=== PATIENT | female | born 1960 | race Caucasian/White ===

== ENCOUNTER 2016-11-05 13:12 | Emergency (ER) | payer OTHER ==
[~2016-11-05] VITALS: Ht 154.9 cm; Wt 94.5 kg
[~2016-11-05 13:12] MED LIST: DIPH25CA37 PO; GLC/500 PO; OXYB15TA PO; PROM25TA9 PO
[2016-11-05 13:26] VITALS: TEMP 36.6; Ht 154.9 cm; Wt 94.5 kg
[2016-11-05] MEDS ORDERED: SODIUM CHLORIDE 0.9% 500ML 500 ML IV STA (13:41)
[2016-11-05] MEDS ORDERED: MoRPHine SULFATE 10 MG/ML CARP/VIAL IM STA (13:46)
[2016-11-05] MEDS ORDERED: PROMETHAZINE HCL INJ 25 MG/ML 1 ML VIAL IM STA (13:46)
[2016-11-05 14:24] LABS: BASO % 0.2 %; BASO ABS # 0.02 K/uL (0-0.2); COMPLETE YES; EOS % 2.5 %; HEMATOCRIT 40.9 % (37-47); IG% 0.2 %; LYMPH % 34.9 %; LYMPH ABS # 3.69 K/uL (1.2-3.4); MEAN CELL VOLUME 82.6 fL (80-100); MEAN CORPUSCULAR HEMOGLOBIN 28.5 pg (25-34); MEAN CORPUSCULAR HGB CONC 34.5 g/dl (32-36); MEAN PLATELET VOLUME 8.9 fL (7.4-10.4); MONO % 8.5 %; NEUT % 53.7 %; PLATELET COUNT 383 K/uL (130-400); RED BLOOD COUNT 4.95 M/uL (4.2-5.4); WHITE BLOOD COUNT 10.57 K/uL (4.8-10.8)
[2016-11-05 14:48] LABS: ALT/SGPT 50 U/L (12-78); AST/SGOT 17 U/L (15-37); BLOOD UREA NITROGEN 9 mg/dl (7-18); BUN/CREATININE RATIO 11.3 (10-20); CALCIUM 9.6 mg/dl (8.5-10.1); CARBON DIOXIDE 26 mmol/L (21-32); CHLORIDE 104 mmol/L (98-107); CREATININE 0.76 mg/dl (0.60-1.20); GLUCOSE 102 mg/dl (70-99); POTASSIUM 4.1 mmol/L (3.5-5.1); SODIUM 139 mmol/L (136-145)
[2016-11-05 14:51] LABS: ALKALINE PHOSPHATASE 144 U/L (45-117)
--- NOTE | 2016-11-05 14:52 | DIAGNOSTIC IMAGING REPORT ---
PA CHEST WITH ABDOMINAL SERIES CLINICAL HISTORY: Nausea and vomiting. Diarrhea. FINDINGS: A PA chest radiograph is compared to study dated 10/19/2016. The cardiomediastinal silhouette is unremarkable. There is mild chronic elevation of the right hemidiaphragm with right basilar atelectasis. The lungs and pleural spaces are otherwise clear. No pneumothorax is seen. The skeletal structures are osteopenic. The bony thorax is grossly intact. Supine and erect abdominal radiographs are compared to study dated 09/14/2016. There is a nonobstructed abdominal bowel gas pattern. Moderate colonic fecal retention is observed. No intraperitoneal free air is seen. Numerous calcified phleboliths are present in the pelvis. The lumbosacral spine and bony pelvis appear intact. IMPRESSION: 1. No active disease in the chest. 2. Moderate constipation. Electronically signed by: Alfonso Reid M.D. 11/05/2016 2:50 PM Dictated Date/Time: 11/05/2016 2:48 PM
[2016-11-05 14:55] LABS: URINE APPEARANCE CLEAR (CLEAR); URINE BILIRUBIN NEG (NEG); URINE COLOR YELLOW; URINE EPITHELIAL CELL AUTO 20-30 /lpf (0-5); URINE NITRITE NEG (NEG); URINE PH 6.5 (4.5-7.5); URINE SPECIFIC GRAVITY 1.002 (1.000-1.030); UROBILINOGEN NEG (NEG); ZZUR CULT IF INDIC CLEAN CATCH NO
[2016-11-05 15:14] LABS: MANUAL MICROSCOPIC REQUIRED? NO; REVIEW REQ? NO
[2016-11-05 16:30] VITALS: BP 144/99; PULSE 99; O2SAT 97
--- NOTE | 2016-11-05 19:17 | EMERGENCY ROOM VISIT NOTE ---
History Report prepared by Tamera: Marcia Gilman Under the Supervision of: Dr. Александр Manzanares D.O. First contact with patient: 13:31 Chief Complaint: VOMITING Stated Complaint: SINUS, HEADACHE, VOMITING, DIARREAH History of Present Illness The patient is a 56 year old female who presents to the Emergency Room with complaints of a persistent illness that began three days ago. She currently rates her discomfort as a 9/10 in severity. The patient states that two and a half weeks ago she was diagnosed with a sinus infection and was started on a 10 day antibiotic course. She states that her symptoms were alleviated with the antibiotics, but states that three days ago her symptoms came back. The patient notes a slight cough that isn't new, a runny nose, and post nasal drainage. She additionally notes vomiting and abdominal irritation. The patient notes a headache today due to her sinus symptoms. She states that she chronically has had neck stiffness and pain that radiates to her neck and back. The pain is worse with twisting and turning of her neck. It's mainly worse when she turns her head to the right. The patient denies any weakness or numbness in her legs. She notes a surgical history of a hysterectomy. The patient states that she has been having diarrhea 5-6 times per day and denies any history of c-diff. She states that her significant other has a cold right now. Pt denies change in vision, fevers, chest pain, shortness of breath, nausea, pain with urination, and melena. Source of History: patient Onset: three days ago Position: other (illness) Symptom Intensity: 9/10 Timing: other (persistent) Associated Symptoms: + back pain, + cough, + diarrhea, + headache, + neck pain, + vomiting, No numbness, No weakness Review of Systems See HPI for pertinent positives & negatives. A total of 10 systems reviewed and were otherwise negative. Past Medical & Surgical Medical Problems: (1) Asthma (2) Cervicalgia (3) Diabetes mellitus type 2 (4) Diabetic gastroparesis (5) Diverticulosis Colon (W/O Ment Of Hemorrhage) (6) Diverticulosis Sml Intestine (W/O Ment Of Hemorg) (7) Essential hypertension (8) Gastroesophageal reflux disease (9) Irritable Bowel Syndrome (10) Migraine Unspecified W/O Intractable Migraine (11) Pure Hypercholesterolem (12) Tubal Ligation Status Surgical Problems: (1) H/O: hysterectomy (2) History of tonsillectomy and adenoidectomy (3) History of tubal ligation Social History Problems: (1) Herpes simplex Family History Diabetes mellitus FH: cancer FHx: heart disease Hypertension Social History Smoking Status: Former Smoker Alcohol Use: none Drug Use: none Marital Status: in relationship Housing Status: lives with significant other Occupation Status: disabled Current/Historical Medications Scheduled Amitriptyline HCl (Amitriptyline HCl), 100 MG PO HS Aspirin (Aspirin), 81 MG PO DAILY Atorvastatin (Atorvastatin Calcium), 40 MG PO HS Dicyclomine Hcl (Dicyclomine Hcl), 10 MG PO QID Duloxetine HCl (Duloxetine HCl), 60 MG PO HS Esomeprazole Magnesium (Nexium), 40 MG PO DAILY Ferrous Sulfate (Ferrous Sulfate), 325 MG PO TIDM Hydroxyzine Pamoate (Vistaril), 25 MG PO BID Insulin Glargine (Lantus Solostar), 5 UNITS SC HS Lisinopril (Lisinopril), 2.5 MG PO DAILY Melatonin (Melatonin), 10 MG PO HS Metformin Hcl (Glucophage), 500 MG PO BID Metoclopramide Hcl (Reglan), 10 MG PO ACHS Montelukast Sod (Montelukast Sodium), 10 MG PO QAM Multivitamin (Multivitamin), 1 TAB PO DAILY Oxybutynin Chloride (Oxybutynin Chloride Er), 15 MG PO HS Polyethylene (Polyethylene Glycol 3350), 17 GM PO QAM Potassium Gluconate (Potassium Gluconate), 1,190 MG PO DAILY Ranitidine HCl (Ranitidine HCl), 150 MG PO HS Senna/Docusate Sod (Senokot S), 1 TAB PO QAM Sucralfate (Sucralfate), 1 GM PO ACHS Scheduled PRN Acetaminophen (Tylenol), 1,000 MG PO UD PRN for Pain or Fever Diphenhydramine Hcl (Benadryl), 25-50 MG PO Q4-6 HRS PRN for Itching Fluticasone Prop/Salmeterol (Advair Diskus 500/50 60 Dose), 1 PUFF INH BID PRN for Shortness of Breath Fluticasone Propionate (Fluticasone Propionate), 2 SPRAYS JG DAILY PRN for Allergy Symptoms Hydrocortisone (Topical) (Hydrocortisone), 1 APPLN TOP UD PRN for Itching Ipratropium-Albuterol (Duoneb), 1 TREATMENT INH BID PRN for SOB/Wheezing Naproxen (Aleve), 440 MG PO Q12 PRN for Pain Promethazine HCl (Promethazine HCl), 25 MG PO Q6H PRN for Nausea Valacyclovir HCl (Valacyclovir HCl), 500 MG PO TID PRN for Outbreaks Allergies Coded Allergies: Hydromorphone (Verified Allergy, Severe, itching, 10/19/16) Ondansetron (Verified Allergy, Intermediate, hives; RASH, 10/19/16) Sulfa Antibiotics (Verified Allergy, Intermediate, rash, 10/19/16) Aminoglycosides (Verified Allergy, Unknown, >, 10/19/16) Bacitracin (Verified Allergy, Unknown, >, 10/19/16) Ceftriaxone (Verified Allergy, Unknown, Rash, hives and itchiness., ) Cephalexin (Unverified Allergy, Unknown, hives, 10/19/16) Latex1 -Allergic Contact Dermititis (Verified Allergy, Unknown, 10/19/16) Neomycin (Verified Allergy, Unknown, >, 10/19/16) Polymyxin B (Verified Allergy, Unknown, >, 10/19/16) Sulfamethoxazole w/Trimethoprim (Verified Allergy, Unknown, Unknown, 10/19) Physical Exam Vital Signs Date Time Temp Pulse Resp B/P Pulse Ox O2 Delivery O2 Flow Rate FiO2 11/05/16 16:30 99 18 144/99 97 11/05/16 14:47 90 18 138/85 97 Room Air 11/05/16 13:26 36.6 104 18 137/89 94 Room Air Physical Exam GENERAL: Laying on right side, disheveled, no acute distress, non-toxic EYE EXAM: normal conjunctiva, PERRL and EOM's grossly intact OROPHARYNX: no exudate, no erythema, lips, buccal mucosa, and tongue normal and mucous membranes are moist NECK: negative Brudzinski sign. supple, no nuchal rigidity, no adenopathy, slight tenderness in her musculature when turning head to the right on the left side of neck LUNGS: Clear to auscultation. Normal chest wall mechanics HEART: no murmurs, S1 normal and S2 normal ABDOMEN: abdomen soft, non-tender, normo-active bowel sounds, no masses, no rebound or guarding. BACK: Minimal pain to palpation on paraspinal muscles, mid thoracic. Back is symmetrical on inspection and there is no deformity, no midline tenderness, no CVA tenderness. SKIN: no rashes and no bruising UPPER EXTREMITIES: upper extremities are grossly normal. LOWER EXTREMITIES: Flexion and extension in Hip, knee, ankle, and EHL 5/5. gross sensations intact. Medical Decision & Procedures ER Provider Diagnostic Interpretation: Xray results per the radiologist and my interpretation. Other results have been interpreted by the radiologist and reviewed by me. PA CHEST WITH ABDOMINAL SERIES CLINICAL HISTORY: Nausea and vomiting. Diarrhea. FINDINGS: A PA chest radiograph is compared to study dated 10/19/2016. The cardiomediastinal silhouette is unremarkable. There is mild chronic elevation of the right hemidiaphragm with right basilar atelectasis. The lungs and pleural spaces are otherwise clear. No pneumothorax is seen. The skeletal structures are osteopenic. The bony thorax is grossly intact. Supine and erect abdominal radiographs are compared to study dated 09/14/2016. There is a nonobstructed abdominal bowel gas pattern. Moderate colonic fecal retention is observed. No intraperitoneal free air is seen. Numerous calcified phleboliths are present in the pelvis. The lumbosacral spine and bony pelvis appear intact. IMPRESSION: 1. No active disease in the chest. 2. Moderate constipation. Electronically signed by: Alfonso Reid M.D. 11/05/2016 2:50 PM Dictated Date/Time: 11/05/2016 2:48 PM Laboratory Results 11/05/16 14:08 Red Blood Count 4.95, Mean Corpuscular Volume 82.6, Mean Corpuscular Hemoglobin 28.5, Mean Corpuscular Hemoglobin Concent 34.5, Mean Platelet Volume 8.9, Neutrophils (%) (Auto) 53.7, Lymphocytes (%) (Auto) 34.9, Monocytes (%) (Auto) 8.5, Eosinophils (%) (Auto) 2.5, Basophils (%) (Auto) 0.2, Neutrophils # (Auto) 5.68, Lymphocytes # (Auto) 3.69, Monocytes # (Auto) 0.90, Eosinophils # (Auto) 0.26, Basophils # (Auto) 0.02 11/05/16 14:08 Test 11/05/16 14:04 11/05/16 14:08 Urine Color YELLOW Urine Appearance CLEAR (CLEAR) Urine pH 6.5 (4.5-7.5) Urine Specific [place] 1.002 (1.000-1.030) Urine Protein NEG (NEG) Urine Glucose (UA) NEG (NEG) Urine Ketones NEG (NEG) Urine Occult Blood NEG (NEG) Urine Nitrite NEG (NEG) Urine Bilirubin NEG (NEG) Urine Urobilinogen NEG (NEG) Urine Leukocyte Esterase MODERATE (NEG) Urine WBC (Auto) 1-5 /hpf (0-5) Urine RBC (Auto) 0-4 /hpf (0-4) Urine Hyaline Casts (Auto) 0 /lpf (0-5) Urine Epithelial Cells (Auto) 20-30 /lpf (0-5) Urine Bacteria (Auto) NEG (NEG) Urine Test NEG (NEG) White Blood Count 10.57 K/uL (4.8-10.8) Red Blood Count 4.95 M/uL (4.2-5.4) Hemoglobin 14.1 g/dL (12.0-16.0) Hematocrit 40.9 % (37-47) Mean Corpuscular Volume 82.6 fL (80-100) Mean Corpuscular Hemoglobin 28.5 pg (25-34) Mean Corpuscular Hemoglobin Concent 34.5 g/dl (32-36) Platelet Count 383 K/uL (130-400) Mean Platelet Volume 8.9 fL (7.4-10.4) Neutrophils (%) (Auto) 53.7 % Lymphocytes (%) (Auto) 34.9 % Monocytes (%) (Auto) 8.5 % Eosinophils (%) (Auto) 2.5 % Basophils (%) (Auto) 0.2 % Neutrophils # (Auto) 5.68 K/uL (1.4-6.5) Lymphocytes # (Auto) 3.69 K/uL (1.2-3.4) Monocytes # (Auto) 0.90 K/uL (0.11-0.59) Eosinophils # (Auto) 0.26 K/uL (0-0.5) Basophils # (Auto) 0.02 K/uL (0-0.2) RDW Standard Deviation 42.2 fL (36.4-46.3) RDW Coefficient of Variation 14.1 % (11.5-14.5) Immature Granulocyte % (Auto) 0.2 % Immature Granulocyte # (Auto) 0.02 K/uL (0.00-0.02) Anion Gap 9.0 mmol/L (3-11) Est Creatinine Clear Calc Drug Dose 84.7 ml/min Estimated GFR () 100.2 Estimated GFR (Non- 86.5 BUN/Creatinine Ratio 11.3 (10-20) Calcium Level 9.6 mg/dl (8.5-10.1) Total Bilirubin 0.3 mg/dl (0.2-1) Direct Bilirubin < 0.1 mg/dl (0-0.2) Aspartate Amino Transf (AST/SGOT) 17 U/L (15-37) Alanine Aminotransferase (ALT/SGPT) 50 U/L (12-78) Alkaline Phosphatase 144 U/L (45-117) Total Protein 7.5 gm/dl (6.4-8.2) Albumin 3.8 gm/dl (3.4-5.0) Lipase 163 U/L (73-393) Laboratory results per my review. Medications Administered Medications (Trade) Dose Ordered Sig/Antony Route Start Time Stop Time Status Last Admin Dose Admin Sodium Chloride (Nss 500ml) 500 ml @ 999 mls/hr Q31M STAT IV 11/05/16 13:41 11/05/16 14:11 DC 11/05/16 14:12 999 MLS/HR Morphine Sulfate (MoRPHine SULFATE INJ) 10 mg NOW STAT IM 11/05/16 13:46 11/05/16 13:48 DC 11/05/16 14:25 10 MG Promethazine HCl (Phenergan Inj) 25 mg NOW STAT IM 11/05/16 13:46 11/05/16 13:48 DC 11/05/16 14:24 25 MG ED Course ED COURSE: Vital signs were reviewed and showed tachycardic The patients medical record was reviewed The above diagnostic studies were performed and reviewed. ED treatments and interventions as stated above. 1339: The patient was evaluated in room B11B. A complete history and physical examination was performed. 1341: Ordered Sodium Chloride 500 ml @ 999 mls/hr IV. 1346: Ordered Phenergan Inj 25 mg IM, Morphine Sulfate 10 mg IM. 1604: Upon reevaluation, the patient is feeling better, has had no vomiting, and no diarrhea.I discussed my findings with the patient and she understands and agrees with the treatment plan. Based on the patients age, coexisting illnesses, exam and lab findings the decision to treat as an outpatient was made. The patient remained stable while under my care. The patient appeared well at the time of discharge. Medical Decision Differential Diagnosis includes but is not limited to dehydration, stroke, anemia, hypoglycemia, hyponatremia, hypernatremia, urinary tract infection, pneumonia, bronchitis, sepsis, gastroenteritis, additional abdominal pathology, metabolic abnormalities and infections. Patient is a 56-year-old female who presents the ER for nausea vomiting diarrhea. She also notes that she has mild left-sided neck pain with rotation of her neck. Patient has chronic back pain which is unremarkable. Patient has no abdominal pain. Labs including CBC, BMP, LFTs and lipase was unremarkable. UA was unremarkable. Parents was negative. Chest x-ray and obstruction series was nonfocal. Patient was updated bedside was given Phenergan and morphine as part of retrieval plan. She was given a bolus normal saline. She notes that she was feeling slightly better. She is unable to give a stool sample. She was discharged follow-up with PCP. Discussed with Pt concerning signs and symptoms to watch out for. Pt was instructed to follow up with their PCP and discussed with the patient their option to return to the ED at anytime for persistent or worsening symptoms. The appropriate anticipatory guidance and out- patient management, including indications for return to the emergency department , were explained at length to the patient and understood. Impression Primary Impression: Nausea vomiting and diarrhea Additional Impression: Neck pain on left side Scribe Attestation The scribe's documentation has been prepared under my direction and personally reviewed by me in its entirety. I confirm that the note above accurately reflects all work, treatment, procedures, and medical decision making performed by me. Departure Information Dispostion Home / Self-Care Referrals Cipriano Peña M.D. (MEDICAL) (PCP) Forms HOME CARE DOCUMENTATION FORM, IMPORTANT VISIT INFORMATION Patient Instructions A Signature Page, ED Diet Vomiting Diarrhea, ED Vomiting Diarrhea Nonspecific Ad , My [facility] Additional Instructions lease follow up with your primary care doctor with in the next 24 hours. Any worsening of your symptoms, please return to the ED immediately. This includes passing out, chest pain, shortness of breath, fevers greater than 100.4, abdominal pain, or any other concerning signs or symptoms from your standpoint. Please follow up with your primary care doctor in the next 24-48 hours to give a stool culture
[2017-01-01] MEDS ORDERED: LPT40 PO (15:56)
[2017-01-05] MEDS ORDERED: ATOR-26 PO (13:27)
[2017-02-09] MEDS ORDERED: NAPR1TAB9 PO (10:30)
[2017-02-09] MEDS ORDERED: PROM25TA16 PO (14:59)
[2017-02-09] MEDS ORDERED: POTA1TAB PO (15:03)
[2017-02-09] MEDS ORDERED: MELA1CAP9 PO (15:09)
[2017-02-09] MEDS ORDERED: ASPI1TAB83 PO (15:29)
[2017-02-09] MEDS ORDERED: MULT-506 PO (15:53)
[2017-02-09] MEDS ORDERED: SUCR1TAB PO (15:56)
[2017-02-09] MEDS ORDERED: CYM60 PO (15:56)
[2017-02-09] MEDS ORDERED: MRLP527 PO (15:56)
[2017-02-09] MEDS ORDERED: RANI150T2 PO (15:56)
[2017-02-09] MEDS ORDERED: SNG10 PO (15:59)
[2017-02-09] MEDS ORDERED: ADVIN50/60 INH (16:10)
[2017-02-09] MEDS ORDERED: GLC500 PO (16:26)
[2017-02-09] MEDS ORDERED: BUSP5TAB59 PO (16:26)
[2017-02-09] MEDS ORDERED: DIPH25TA32 PO (16:27)
[2017-02-09] MEDS ORDERED: MTR800 PO (16:31)
[2017-02-09] MEDS ORDERED: HYDR0.5C TOP (16:59)
[2017-02-09] MEDS ORDERED: TOLT2TAB9 PO (17:08)
[2017-02-09] MEDS ORDERED: VLT500 PO (19:28)
[2017-02-09] MEDS ORDERED: SENN-65 PO (20:07)
[2017-02-09] MEDS ORDERED: FLNIN/ NAE (20:57)
[2017-02-09] MEDS ORDERED: METO-157 PO (21:00)
[2017-02-09] MEDS ORDERED: ATOR-26 PO (21:11)
[2017-02-09] MEDS ORDERED: LSN25 PO (21:39)
[2017-02-09] MEDS ORDERED: DICY10CA12 PO (21:39)
[2017-02-09] MEDS ORDERED: FERR325T PO (21:44)
[2017-02-09] MEDS ORDERED: AMT100 PO (21:46)
[2017-02-09] MEDS ORDERED: INSDGIPEN SC (22:29)
[2017-02-09] MEDS ORDERED: IPRASOL4 INH (22:43)
[2017-04-04] MEDS ORDERED: ESTCR PV (18:18)
[2017-04-22] MEDS ORDERED: MIRA100T PO (21:50)
[2017-06-06] MEDS ORDERED: OXYB5TAB74 PO (14:15)
== END 2016-11-05 16:32 | disposition home or self-care (01) ==
LOC: C.EDB 13:15
DX: R11.2 Nausea with vomiting, unspecified (principal); R19.7 Diarrhea, unspecified; M54.2 Cervicalgia; R05 Cough; R51 Headache; I10 Essential (primary) hypertension; E11.9 Type 2 diabetes mellitus without complications; E78.00 Pure hypercholesterolemia, unspecified; K21.9 Gastro-esophageal reflux disease without esophagitis; Z79.4 Long term (current) use of insulin; Z79.82 Long term (current) use of aspirin; Z79.84 Long term (current) use of oral hypoglycemic drugs; Z79.899 Other long term (current) drug therapy; Z88.1 Allergy status to other antibiotic agents; Z88.2 Allergy status to sulfonamides; Z88.5 Allergy status to narcotic agent; Z88.8 Allergy status to other drugs, medicaments and biological substances; Z91.040 Latex allergy status; Z87.891 Personal history of nicotine dependence

== ENCOUNTER 2016-11-19 12:58 | Emergency (ER) | payer OTHER ==
[~2016-11-19] VITALS: Ht 154.9 cm; Wt 95.9 kg
[~2016-11-19 12:58] MED LIST changes: -PROM25TA9 PO
[2016-11-19 13:05] VITALS: TEMP 37.3; Ht 154.9 cm; Wt 95.9 kg
[2016-11-19] MEDS ORDERED: MoRPHine SULFATE 10 MG/ML CARP/VIAL IM STA (13:32)
[2016-11-19] MEDS ORDERED: PROMETHAZINE HCL INJ 25 MG/ML 1 ML VIAL IM STA (13:32)
[2016-11-19 14:05] VITALS: BP 136/74; PULSE 64; O2SAT 98
--- NOTE | 2016-11-19 15:06 | EMERGENCY ROOM VISIT NOTE ---
History First contact with patient: 13:24 Chief Complaint: HIP PAIN Stated Complaint: PAIN IN HIP AND LEG History of Present Illness The patient is a 56 year old female who presents to the Emergency Room with complaints of lower back, right hip and thigh pain. The patient reports that the pain goes to her knee. She has a prior history of chronic lower back pain, and underwent an epidural steroid injection approximate [address] Berrios. She denies any lower extremity weakness, bladder/bowel incontinence or saddle paresthesias. She rates her discomfort a 9 out of 10. The patient denies any recent injury to her back. Review of Systems 10 system review was performed and was negative except for pertinent positives and negatives as indicated in history of present illness Past Medical/Surgical History Medical Problems: (1) Asthma (2) Cervicalgia (3) Diabetes mellitus type 2 (4) Diabetic gastroparesis (5) Diverticulosis Colon (W/O Ment Of Hemorrhage) (6) Diverticulosis Sml Intestine (W/O Ment Of Hemorg) (7) Essential hypertension (8) Gastroesophageal reflux disease (9) Irritable Bowel Syndrome (10) Migraine Unspecified W/O Intractable Migraine (11) Pure Hypercholesterolem (12) Tubal Ligation Status Surgical Problems: (1) H/O: hysterectomy (2) History of tonsillectomy and adenoidectomy (3) History of tubal ligation Social History Problems: (1) Herpes simplex Family History Diabetes mellitus FH: cancer FHx: heart disease Hypertension Social History Smoking Status: Former Smoker Alcohol Use: none Drug Use: none Marital Status: in relationship Housing Status: lives with significant other Occupation Status: disabled Current/Historical Medications Scheduled Amitriptyline HCl (Amitriptyline HCl), 100 MG PO HS Aspirin (Aspirin), 81 MG PO DAILY Atorvastatin (Atorvastatin Calcium), 40 MG PO HS Dicyclomine Hcl (Dicyclomine Hcl), 10 MG PO QID Duloxetine HCl (Duloxetine HCl), 60 MG PO HS Esomeprazole Magnesium (Nexium), 40 MG PO DAILY Ferrous Sulfate (Ferrous Sulfate), 325 MG PO TIDM Hydroxyzine Pamoate (Vistaril), 25 MG PO BID Insulin Glargine (Lantus Solostar), 5 UNITS SC HS Lisinopril (Lisinopril), 2.5 MG PO DAILY Melatonin (Melatonin), 10 MG PO HS Metformin Hcl (Glucophage), 500 MG PO BID Metoclopramide Hcl (Reglan), 10 MG PO ACHS Montelukast Sod (Montelukast Sodium), 10 MG PO QAM Multivitamin (Multivitamin), 1 TAB PO DAILY Oxybutynin Chloride (Oxybutynin Chloride Er), 15 MG PO HS Polyethylene (Polyethylene Glycol 3350), 17 GM PO QAM Potassium Gluconate (Potassium Gluconate), 1,190 MG PO DAILY Ranitidine HCl (Ranitidine HCl), 150 MG PO HS Senna/Docusate Sod (Senokot S), 1 TAB PO QAM Sucralfate (Sucralfate), 1 GM PO ACHS Scheduled PRN Acetaminophen (Tylenol), 1,000 MG PO UD PRN for Pain or Fever Diphenhydramine Hcl (Benadryl), 25-50 MG PO Q4-6 HRS PRN for Itching Fluticasone Prop/Salmeterol (Advair Diskus 500/50 60 Dose), 1 PUFF INH BID PRN for Shortness of Breath Fluticasone Propionate (Fluticasone Propionate), 2 SPRAYS JG DAILY PRN for Allergy Symptoms Hydrocortisone (Topical) (Hydrocortisone), 1 APPLN TOP UD PRN for Itching Ipratropium-Albuterol (Duoneb), 1 TREATMENT INH BID PRN for SOB/Wheezing Naproxen (Aleve), 440 MG PO Q12 PRN for Pain Promethazine HCl (Promethazine HCl), 25 MG PO Q6H PRN for Nausea Valacyclovir HCl (Valacyclovir HCl), 500 MG PO TID PRN for Outbreaks Allergies Coded Allergies: Hydromorphone (Verified Allergy, Severe, itching, 11/19/16) Ondansetron (Verified Allergy, Intermediate, hives; RASH, 11/19/16) Sulfa Antibiotics (Verified Allergy, Intermediate, rash, 11/19/16) Aminoglycosides (Verified Allergy, Unknown, >, 11/19/16) Bacitracin (Verified Allergy, Unknown, >, 11/19/16) Ceftriaxone (Verified Allergy, Unknown, Rash, hives and itchiness., ) Cephalexin (Unverified Allergy, Unknown, hives, 11/19/16) Latex1 -Allergic Contact Dermititis (Verified Allergy, Unknown, 11/19/16) Neomycin (Verified Allergy, Unknown, >, 11/19/16) Polymyxin B (Verified Allergy, Unknown, >, 11/19/16) Sulfamethoxazole w/Trimethoprim (Verified Allergy, Unknown, Unknown, ) Physical Exam Vital Signs Date Time Temp Pulse Resp B/P Pulse Ox O2 Delivery O2 Flow Rate FiO2 11/19/16 14:05 64 16 136/74 98 11/19/16 13:05 37.3 100 18 134/83 96 Room Air Pain Rating (0-10): 9.0 Physical Exam CONSTITUTIONAL: Healthy and well nourished. Alert and oriented X 3 with positive affect. She does not appear in any acute distress. HEENT: Normocephalic, atraumatic. Pupils equal, round and reactive. NECK: Full active range of motion without discomfort. RESPIRATORY: Clear to auscultation bilaterally with no wheezing, crackles, rhonchi or stridor. CARDIOVASCULAR: Regular rate and rhythm with no murmurs, rubs or gallops. GASTROINTESTINAL: Bowel sounds present in all quadrants. Soft and nontender to palpation. MUSCULOSKELETAL: Mild tenderness to palpation through the lower lumbar region and right SI joint. Negative logroll. Negative sitting straight leg raise. Pedal pulses are intact. Ankle plantar/dorsiflexion strength is 4 out of 5 and symmetric bilaterally. INTEGUMENTARY: No rash or other significant dermatologic conditions noted. NEUROLOGIC: No focal neurologic deficits noted. Lower extremity deep tendon reflexes are 2+ and symmetric bilaterally. Medical Decision & Procedures Medications Administered Medications (Trade) Dose Ordered Sig/Antony Route Start Time Stop Time Status Last Admin Dose Admin Morphine Sulfate (MoRPHine SULFATE INJ) 10 mg NOW STAT IM 11/19/16 13:32 11/19/16 13:34 DC 11/19/16 13:59 10 MG Promethazine HCl (Phenergan Inj) 25 mg NOW STAT IM 11/19/16 13:32 11/19/16 13:34 DC 11/19/16 13:59 25 MG ED Course Patient history and physical exam were performed. Nurse's notes were reviewed. Review medical records shows that the patient is here frequently for migraines and chronic lumbar pain. She is on a treatment plan of 2 narcotic injections monthly. This is her second visit of the month. The patient was administered morphine 10 mg and Phenergan 25 mg IM. The patient was instructed to follow-up with her pain management doctor for further management. The patient was happy with plan of care, and rated her discomfort a 6 out of 10 at the time of discharge. Medical Decision History and clinical exam findings are not consistent with an emergent compressive neuropathy. I do not feel that further imaging studies are warranted. Impression Primary Impression: Chronic lumbar radiculopathy Departure Information Dispostion Home / Self-Care Condition GOOD Forms HOME CARE DOCUMENTATION FORM, IMPORTANT VISIT INFORMATION Patient Instructions My [facility] [address] Additional Instructions Follow-up with Dr. Berrios for further management.
[2017-01-01] MEDS ORDERED: LPT40 PO (15:56)
[2017-01-05] MEDS ORDERED: ATOR-26 PO (13:27)
[2017-02-09] MEDS ORDERED: NAPR1TAB9 PO (10:30)
[2017-02-09] MEDS ORDERED: PROM25TA16 PO (14:59)
[2017-02-09] MEDS ORDERED: POTA1TAB PO (15:03)
[2017-02-09] MEDS ORDERED: MELA1CAP9 PO (15:09)
[2017-02-09] MEDS ORDERED: ASPI1TAB83 PO (15:29)
[2017-02-09] MEDS ORDERED: MULT-506 PO (15:53)
[2017-02-09] MEDS ORDERED: SUCR1TAB PO (15:56)
[2017-02-09] MEDS ORDERED: MRLP527 PO (15:56)
[2017-02-09] MEDS ORDERED: CYM60 PO (15:56)
[2017-02-09] MEDS ORDERED: RANI150T2 PO (15:56)
[2017-02-09] MEDS ORDERED: SNG10 PO (15:59)
[2017-02-09] MEDS ORDERED: ADVIN50/60 INH (16:10)
[2017-02-09] MEDS ORDERED: BUSP5TAB59 PO (16:26)
[2017-02-09] MEDS ORDERED: GLC500 PO (16:26)
[2017-02-09] MEDS ORDERED: DIPH25TA32 PO (16:27)
[2017-02-09] MEDS ORDERED: MTR800 PO (16:31)
[2017-02-09] MEDS ORDERED: HYDR0.5C TOP (16:59)
[2017-02-09] MEDS ORDERED: TOLT2TAB9 PO (17:08)
[2017-02-09] MEDS ORDERED: VLT500 PO (19:28)
[2017-02-09] MEDS ORDERED: SENN-65 PO (20:07)
[2017-02-09] MEDS ORDERED: FLNIN/ NAE (20:57)
[2017-02-09] MEDS ORDERED: METO-157 PO (21:00)
[2017-02-09] MEDS ORDERED: ATOR-26 PO (21:11)
[2017-02-09] MEDS ORDERED: LSN25 PO (21:39)
[2017-02-09] MEDS ORDERED: DICY10CA12 PO (21:39)
[2017-02-09] MEDS ORDERED: FERR325T PO (21:44)
[2017-02-09] MEDS ORDERED: AMT100 PO (21:46)
[2017-02-09] MEDS ORDERED: INSDGIPEN SC (22:29)
[2017-02-09] MEDS ORDERED: IPRASOL4 INH (22:43)
[2017-04-04] MEDS ORDERED: ESTCR PV (18:18)
[2017-04-22] MEDS ORDERED: MIRA100T PO (21:50)
[2017-06-06] MEDS ORDERED: OXYB5TAB74 PO (14:15)
== END 2016-11-19 14:05 | disposition home or self-care (01) ==
LOC: C.EDB 12:59 → C.EDD 14:05
DX: M54.16 Radiculopathy, lumbar region (principal); G89.29 Other chronic pain; M54.5 Low back pain; I10 Essential (primary) hypertension; E11.43 Type 2 diabetes mellitus with diabetic autonomic (poly)neuropathy; E78.00 Pure hypercholesterolemia, unspecified; J45.909 Unspecified asthma, uncomplicated; K21.9 Gastro-esophageal reflux disease without esophagitis; K58.9 Irritable bowel syndrome, unspecified; K57.30 Diverticulosis of large intestine without perforation or abscess without bleeding; K57.10 Diverticulosis of small intestine without perforation or abscess without bleeding; Z98.51 Tubal ligation status; Z90.710 Acquired absence of both cervix and uterus; Z98.890 Other specified postprocedural states; Z87.891 Personal history of nicotine dependence; Z79.82 Long term (current) use of aspirin; Z79.4 Long term (current) use of insulin; Z79.899 Other long term (current) drug therapy; Z88.2 Allergy status to sulfonamides; Z88.5 Allergy status to narcotic agent; Z88.8 Allergy status to other drugs, medicaments and biological substances; Z91.040 Latex allergy status; Z80.9 Family history of malignant neoplasm, unspecified; Z83.3 Family history of diabetes mellitus; Z82.49 Family history of ischemic heart disease and other diseases of the circulatory system

== ENCOUNTER 2016-11-21 18:07 | Emergency (ER) | payer OTHER ==
[~2016-11-21] VITALS: Ht 154.9 cm; Wt 57.3 kg
[2016-11-21 18:12] VITALS: TEMP 36.7; Ht 154.9 cm; Wt 57.3 kg
[2016-11-21 18:46] LABS: BASO % 0.2 %; BASO ABS # 0.03 K/uL (0-0.2); COMPLETE YES; EOS % 3.6 %; HEMATOCRIT 38.6 % (37-47); IG% 0.2 %; LYMPH % 36.1 %; LYMPH ABS # 4.34 K/uL (1.2-3.4); MEAN CELL VOLUME 83.9 fL (80-100); MEAN CORPUSCULAR HEMOGLOBIN 28.7 pg (25-34); MEAN CORPUSCULAR HGB CONC 34.2 g/dl (32-36); MEAN PLATELET VOLUME 8.9 fL (7.4-10.4); MONO % 6.3 %; NEUT % 53.6 %; PLATELET COUNT 354 K/uL (130-400); WHITE BLOOD COUNT 12.01 K/uL (4.8-10.8)
[2016-11-21] MEDS ORDERED: KETOROLAC TROMETHAMINE 30 MG/ML VIAL IV STA (19:00)
[2016-11-21] MEDS ORDERED: SODIUM CHLORIDE 0.9% 1000ML 1,000 ML IV STA (19:00)
[2016-11-21] MEDS ORDERED: METOCLOPRAMIDE HCL INJ 5 MG/ML 2 ML VIAL IV STA (19:00)
[2016-11-21 19:02] LABS: ALT/SGPT 35 U/L (12-78); BLOOD UREA NITROGEN 11 mg/dl (7-18); BUN/CREATININE RATIO 11.6 (10-20); CALCIUM 8.7 mg/dl (8.5-10.1); CARBON DIOXIDE 24 mmol/L (21-32); CHLORIDE 103 mmol/L (98-107); CREATININE 0.92 mg/dl (0.60-1.20); GLUCOSE 144 mg/dl (70-99); POTASSIUM 3.7 mmol/L (3.5-5.1); SODIUM 141 mmol/L (136-145)
[2016-11-21 19:05] LABS: ALKALINE PHOSPHATASE 140 U/L (45-117); AST/SGOT 17 U/L (15-37)
[2016-11-21] MEDS ORDERED: OPTIRAY 320 IV PRN (19:15)
[2016-11-21 19:42] LABS: URINE APPEARANCE CLOUDY (CLEAR); URINE BILIRUBIN NEG (NEG); URINE COLOR YELLOW; URINE NITRITE NEG (NEG); URINE SPECIFIC GRAVITY 1.006 (1.000-1.030); UROBILINOGEN NEG (NEG); ZZUR CULT IF INDIC CLEAN CATCH YES
[2016-11-21 19:46] LABS: MANUAL MICROSCOPIC REQUIRED? NO; REVIEW REQ? NO
--- NOTE | 2016-11-21 19:54 | DIAGNOSTIC IMAGING REPORT ---
CT ABD/PELVIS IV CONTRAST ONLY CLINICAL HISTORY: Left lower quadrant abdominal pain COMPARISON STUDY: 08/21/2016 TECHNIQUE: Following the IV administration of 119 mL of Optiray-320, CT scan of the abdomen and pelvis was performed from the lung bases to the proximal femurs. Images are reviewed in the axial, sagittal, and coronal planes. IV contrast was administered without complication. CT DOSE: 1131.82 mGy.cm FINDINGS: Lower chest: The heart is normal in size and configuration, without pericardial effusion. The lung bases and pleural spaces are clear. Liver: There is mild hepatic steatosis. No focal masses are visualized. Gallbladder: Unremarkable. Spleen: Normal in size and attenuation. Pancreas: Unremarkable. Adrenal glands: Unremarkable. Kidneys: There is a stable 22 mm left renal cyst Bowel: There are no transition zones indicate bowel obstruction. The appendix appears normal. There is no acute diverticulitis. Peritoneum: There is no intraperitoneal free air or abdominal ascites. Vasculature: The abdominal aorta is normal in course and caliber. Adenopathy: None. Pelvic viscera: There is mild bladder wall thickening. Please correlate with urinalysis to exclude a urinary tract infection. The uterus is surgically absent. Skeletal structures: No destructive osseous lesions are seen. IMPRESSION: 1. No evidence of bowel obstruction. No evidence of free air 2. Normal appendix 3. No evidence of acute diverticulitis 4. Mild bladder wall thickening. Correlate with urinalysis to exclude urinary tract infection. Electronically signed by: Enrique Anton M.D. 11/21/2016 7:52 PM Dictated Date/Time: 11/21/2016 7:48 PM
[2016-11-21 21:04] VITALS: BP 123/70; PULSE 81; O2SAT 97
--- NOTE | 2016-11-21 23:05 | EMERGENCY ROOM VISIT NOTE ---
History Report prepared by Tamera: Kameron Fountain Under the Supervision of: Dr. Александр Manzanares D.O. First contact with patient: 18:39 Chief Complaint: ABDOMINAL PAIN Stated Complaint: ABD PAIN Nursing Triage Summary: pt presents with c/o abdominal pain, diarrhea, nausea and vomiting that began yesterday pt states she is dizzy with movement and at rest History of Present Illness The patient is a 56 year old female who presents to the Emergency Room with complaints of persistent abdominal pain that started yesterday. The patient describes the pain as sharp and stabbing. She has a history of chronic abdominal pain but notes that this is more intense than usual. She notes that it is more on the left hand-side and her usual abdominal pain is typically more diffuse. She also complains of vomiting and diarrhea. Her last bowel movement was one hour ago. She had 3 bowel movements today. Pt denies headache, change in vision, fevers, chest pain, shortness of breath, pain with urination, and melena. Source of History: patient Onset: yesterday Position: abdomen (left side) Quality: sharp, stabbing Timing: other (persistent) Associated Symptoms: + diarrhea, + nausea, + vomiting, No SOB, No chest pain , No fevers, No melena, No urinary symptoms Note: Denies: changes in vision Review of Systems See HPI for pertinent positives & negatives. A total of 10 systems reviewed and were otherwise negative. Past Medical & Surgical Medical Problems: (1) Asthma (2) Cervicalgia (3) Diabetes mellitus type 2 (4) Diabetic gastroparesis (5) Diverticulosis Colon (W/O Ment Of Hemorrhage) (6) Diverticulosis Sml Intestine (W/O Ment Of Hemorg) (7) Essential hypertension (8) Gastroesophageal reflux disease (9) Irritable Bowel Syndrome (10) Migraine Unspecified W/O Intractable Migraine (11) Pure Hypercholesterolem (12) Tubal Ligation Status Surgical Problems: (1) H/O: hysterectomy (2) History of tonsillectomy and adenoidectomy (3) History of tubal ligation Social History Problems: (1) Herpes simplex Family History Diabetes mellitus FH: cancer FHx: heart disease Hypertension Social History Smoking Status: Former Smoker Alcohol Use: none Drug Use: none Marital Status: in relationship Housing Status: lives with significant other Occupation Status: disabled Current/Historical Medications Scheduled Amitriptyline HCl (Amitriptyline HCl), 100 MG PO HS Aspirin (Aspirin), 81 MG PO DAILY Atorvastatin (Atorvastatin Calcium), 40 MG PO HS Dicyclomine Hcl (Dicyclomine Hcl), 10 MG PO QID Duloxetine HCl (Duloxetine HCl), 60 MG PO HS Esomeprazole Magnesium (Nexium), 40 MG PO DAILY Ferrous Sulfate (Ferrous Sulfate), 325 MG PO TIDM Hydroxyzine Pamoate (Vistaril), 25 MG PO BID Insulin Glargine (Lantus Solostar), 5 UNITS SC HS Lisinopril (Lisinopril), 2.5 MG PO DAILY Melatonin (Melatonin), 10 MG PO HS Metformin Hcl (Glucophage), 500 MG PO BID Metoclopramide Hcl (Reglan), 10 MG PO ACHS Montelukast Sod (Montelukast Sodium), 10 MG PO QAM Multivitamin (Multivitamin), 1 TAB PO DAILY Oxybutynin Chloride (Oxybutynin Chloride Er), 15 MG PO HS Polyethylene (Polyethylene Glycol 3350), 17 GM PO QAM Potassium Gluconate (Potassium Gluconate), 1,190 MG PO DAILY Ranitidine HCl (Ranitidine HCl), 150 MG PO HS Senna/Docusate Sod (Senokot S), 1 TAB PO QAM Sucralfate (Sucralfate), 1 GM PO ACHS Scheduled PRN Acetaminophen (Tylenol), 1,000 MG PO UD PRN for Pain or Fever Diphenhydramine Hcl (Benadryl), 25-50 MG PO Q4-6 HRS PRN for Itching Fluticasone Prop/Salmeterol (Advair Diskus 500/50 60 Dose), 1 PUFF INH BID PRN for Shortness of Breath Fluticasone Propionate (Fluticasone Propionate), 2 SPRAYS JG DAILY PRN for Allergy Symptoms Hydrocortisone (Topical) (Hydrocortisone), 1 APPLN TOP UD PRN for Itching Ipratropium-Albuterol (Duoneb), 1 TREATMENT INH BID PRN for SOB/Wheezing Naproxen (Aleve), 440 MG PO Q12 PRN for Pain Promethazine HCl (Promethazine HCl), 25 MG PO Q6H PRN for Nausea Valacyclovir HCl (Valacyclovir HCl), 500 MG PO TID PRN for Outbreaks Allergies Coded Allergies: Hydromorphone (Verified Allergy, Severe, itching, 11/19/16) Ondansetron (Verified Allergy, Intermediate, hives; RASH, 11/19/16) Sulfa Antibiotics (Verified Allergy, Intermediate, rash, 11/19/16) Aminoglycosides (Verified Allergy, Unknown, >, 11/19/16) Bacitracin (Verified Allergy, Unknown, >, 11/19/16) Ceftriaxone (Verified Allergy, Unknown, Rash, hives and itchiness., ) Cephalexin (Unverified Allergy, Unknown, hives, 11/19/16) Latex1 -Allergic Contact Dermititis (Verified Allergy, Unknown, 11/19/16) Neomycin (Verified Allergy, Unknown, >, 11/19/16) Polymyxin B (Verified Allergy, Unknown, >, 11/19/16) Sulfamethoxazole w/Trimethoprim (Verified Allergy, Unknown, Unknown, ) Physical Exam Vital Signs Date Time Temp Pulse Resp B/P Pulse Ox O2 Delivery O2 Flow Rate FiO2 11/21/16 21:04 81 18 123/70 97 11/21/16 19:23 74 18 135/83 97 Room Air 11/21/16 18:23 90 20 107/72 99 Room Air 93 104/71 96 106/74 11/21/16 18:12 36.7 92 18 128/87 97 Room Air Physical Exam GENERAL: sitting up in bed, no acute distress, non-toxic, disheveled EYE EXAM: normal conjunctiva, OROPHARYNX: no exudate, no erythema, lips, buccal mucosa, and tongue normal and mucous membranes are moist NECK: supple, no nuchal rigidity, no adenopathy, non-tender LUNGS: Clear to auscultation. Normal chest wall mechanics HEART: no murmurs, S1 normal and S2 normal ABDOMEN: abdomen soft, tenderness to palpation in left lower quadrant, normo- active bowel sounds, no masses, no rebound or guarding. BACK: Back is symmetrical on inspection and there is no deformity, no midline tenderness, no CVA tenderness. SKIN: no rashes and no bruising UPPER EXTREMITIES: upper extremities are grossly normal. LOWER EXTREMITIES: No pitting edema. NEURO EXAM: Normal sensorium, cranial nerves II-XII grossly intact, normal speech, no gross weakness of arms, no gross weakness of legs. Gross sensation intact. Medical Decision & Procedures ER Provider Diagnostic Interpretation: CT:Per my review, radiologist interpretation. CT ABD/PELVIS IV CONTRAST ONLY CLINICAL HISTORY: Left lower quadrant abdominal pain COMPARISON STUDY: 08/21/2016 TECHNIQUE: Following the IV administration of 119 mL of Optiray-320, CT scan of the abdomen and pelvis was performed from the lung bases to the proximal femurs. Images are reviewed in the axial, sagittal, and coronal planes. IV contrast was administered without complication. CT DOSE: 1131.82 mGy.cm FINDINGS: Lower chest: The heart is normal in size and configuration, without pericardial effusion. The lung bases and pleural spaces are clear. Liver: There is mild hepatic steatosis. No focal masses are visualized. Gallbladder: Unremarkable. Spleen: Normal in size and attenuation. Pancreas: Unremarkable. Adrenal glands: Unremarkable. Kidneys: There is a stable 22 mm left renal cyst Bowel: There are no transition zones indicate bowel obstruction. The appendix appears normal. There is no acute diverticulitis. Peritoneum: There is no intraperitoneal free air or abdominal ascites. Vasculature: The abdominal aorta is normal in course and caliber. Adenopathy: None. Pelvic viscera: There is mild bladder wall thickening. Please correlate with urinalysis to exclude a urinary tract infection. The uterus is surgically absent. Skeletal structures: No destructive osseous lesions are seen. IMPRESSION: 1. No evidence of bowel obstruction. No evidence of free air 2. Normal appendix 3. No evidence of acute diverticulitis 4. Mild bladder wall thickening. Correlate with urinalysis to exclude urinary tract infection. Electronically signed by: Enrique Anton M.D. 11/21/2016 7:52 PM Dictated Date/Time: 11/21/2016 7:48 PM Laboratory Results 11/21/16 18:35 Red Blood Count 4.60, Mean Corpuscular Volume 83.9, Mean Corpuscular Hemoglobin 28.7, Mean Corpuscular Hemoglobin Concent 34.2, Mean Platelet Volume 8.9, Neutrophils (%) (Auto) 53.6, Lymphocytes (%) (Auto) 36.1, Monocytes (%) (Auto) 6.3, Eosinophils (%) (Auto) 3.6, Basophils (%) (Auto) 0.2, Neutrophils # (Auto) 6.42, Lymphocytes # (Auto) 4.34, Monocytes # (Auto) 0.76, Eosinophils # (Auto) 0.43, Basophils # (Auto) 0.03 11/21/16 18:35 Test 11/21/16 18:35 11/21/16 19:20 White Blood Count 12.01 K/uL (4.8-10.8) Red Blood Count 4.60 M/uL (4.2-5.4) Hemoglobin 13.2 g/dL (12.0-16.0) Hematocrit 38.6 % (37-47) Mean Corpuscular Volume 83.9 fL (80-100) Mean Corpuscular Hemoglobin 28.7 pg (25-34) Mean Corpuscular Hemoglobin Concent 34.2 g/dl (32-36) Platelet Count 354 K/uL (130-400) Mean Platelet Volume 8.9 fL (7.4-10.4) Neutrophils (%) (Auto) 53.6 % Lymphocytes (%) (Auto) 36.1 % Monocytes (%) (Auto) 6.3 % Eosinophils (%) (Auto) 3.6 % Basophils (%) (Auto) 0.2 % Neutrophils # (Auto) 6.42 K/uL (1.4-6.5) Lymphocytes # (Auto) 4.34 K/uL (1.2-3.4) Monocytes # (Auto) 0.76 K/uL (0.11-0.59) Eosinophils # (Auto) 0.43 K/uL (0-0.5) Basophils # (Auto) 0.03 K/uL (0-0.2) RDW Standard Deviation 43.8 fL (36.4-46.3) RDW Coefficient of Variation 14.2 % (11.5-14.5) Immature Granulocyte % (Auto) 0.2 % Immature Granulocyte # (Auto) 0.03 K/uL (0.00-0.02) Anion Gap 14.0 mmol/L (3-11) Est Creatinine Clear Calc Drug Dose 50.3 ml/min Estimated GFR () 79.6 Estimated GFR (Non- 68.6 BUN/Creatinine Ratio 11.6 (10-20) Calcium Level 8.7 mg/dl (8.5-10.1) Total Bilirubin 0.2 mg/dl (0.2-1) Direct Bilirubin < 0.1 mg/dl (0-0.2) Aspartate Amino Transf (AST/SGOT) 17 U/L (15-37) Alanine Aminotransferase (ALT/SGPT) 35 U/L (12-78) Alkaline Phosphatase 140 U/L (45-117) Total Protein 6.7 gm/dl (6.4-8.2) Albumin 3.4 gm/dl (3.4-5.0) Lipase 161 U/L (73-393) Urine Color YELLOW Urine Appearance CLOUDY (CLEAR) Urine pH 6.0 (4.5-7.5) Urine Specific [place] 1.006 (1.000-1.030) Urine Protein NEG (NEG) Urine Glucose (UA) NEG (NEG) Urine Ketones NEG (NEG) Urine Occult Blood TRACE (NEG) Urine Nitrite NEG (NEG) Urine Bilirubin NEG (NEG) Urine Urobilinogen NEG (NEG) Urine Leukocyte Esterase LARGE (NEG) Urine WBC (Auto) >30 /hpf (0-5) Urine RBC (Auto) 0-4 /hpf (0-4) Urine Hyaline Casts (Auto) 1-5 /lpf (0-5) Urine Epithelial Cells (Auto) 10-20 /lpf (0-5) Urine Bacteria (Auto) NEG (NEG) Urine Test NEG (NEG) Laboratory results per my review. Medications Administered Medications (Trade) Dose Ordered Sig/Antony Route Start Time Stop Time Status Last Admin Dose Admin Sodium Chloride (Nss 1000ml) 1,000 ml @ 999 mls/hr Q1H1M STAT IV 11/21/16 19:00 11/21/16 20:00 DC 11/21/16 19:14 999 MLS/HR Metoclopramide HCl (Reglan Inj) 5 mg NOW STAT IV 11/21/16 19:00 11/21/16 19:02 DC 11/21/16 19:15 5 MG Ketorolac Tromethamine (Toradol Inj) 30 mg NOW STAT IV 11/21/16 19:00 11/21/16 19:02 DC 11/21/16 19:15 30 MG ED Course ED COURSE: Vital signs were reviewed and showed normal The patients medical record was reviewed The above diagnostic studies were performed and reviewed. ED treatments and interventions as stated above. 1848: The patient was evaluated in room A12. A complete history and physical examination was performed. 1900: Ordered Toradol Inj 30 mg IV, Reglan Inj 5 mg IV, NSS 1000 ml @ 999 mls/ hr IV. 1914: Ordered Ioversol 100 ml IV/interaction checking. 1947: Upon reevaluation, the patient is resting comfortably.I discussed my findings with the patient and she understands and agrees with the treatment plan. Based on the patients age, coexisting illnesses, exam and lab findings the decision to treat as an outpatient was made. The patient remained stable while under my care. The patient appeared well at the time of discharge. Medical Decision Differential diagnoses includes but is not limited to gastritis, peptic ulcer disease, GERD, gallbladder disease, pancreatitis, small bowel obstruction, acute coronary syndrome, pericarditis, ischemic bowel, irritable bowel disease, irritable bowel syndrome, appendicitis, diverticulitis, malignancy, hernia, urinary tract infection, torsion, /ectopic (if female), perforation, trauma, infectious. Patient is a 48-year-old female who presents the ER for diffuse lower abdominal pain which is worse on the left. She notes that it is associated with nausea, vomiting and diarrhea. She does have chronic abdominal pain but notes that this is worse on left lower quadrant. She has a history of diverticulitis. She has a mild leukocytosis of 12,000, BMP along with LFTs and lipase is unremarkable. UA had leuks and white blood cells but epithelials were 20. Urine was negative. She denies any history of urinary frequency, urgency or burning. She notes that she has had previous UTIs and this does not feel like that. Patient was given IV Reglan and normal saline for her nausea. Symptoms have improved significantly on reevaluation. CT was negative. Patient was updated in regards to findings and was discharged follow with her primary care doctor. Discussed with Pt concerning signs and symptoms to watch out for. Pt was instructed to follow up with their PCP and discussed with the patient their option to return to the ED at anytime for persistent or worsening symptoms. The appropriate anticipatory guidance and out-patient management, including indications for return to the emergency department, were explained at length to the patient and understood. Impression Primary Impression: Abdominal pain Scribe Attestation The scribe's documentation has been prepared under my direction and personally reviewed by me in its entirety. I confirm that the note above accurately reflects all work, treatment, procedures, and medical decision making performed by me. Departure Information Dispostion Home / Self-Care Referrals Cipriano Peña M.D. (MEDICAL) (PCP) Forms Call Back Authorization, HOME CARE DOCUMENTATION FORM, IMPORTANT VISIT INFORMATION Patient Instructions My [facility] Additional Instructions Please follow up with your primary care doctor with in the next 24 hours. Any worsening of your symptoms, please return to the ED immediately. This includes fevers greater than 100.4, worsening pain, persistent vomiting and diarrhea, or any other concerning signs or symptoms from your standpoint. Please take Motrin or Tylenol as needed for pain. Problem Qualifiers Primary Impression: Abdominal pain Abdominal location: left lower quadrant Qualified Codes: R10.32 - Left lower quadrant pain
[2017-01-01] MEDS ORDERED: LPT40 PO (15:56)
[2017-01-05] MEDS ORDERED: ATOR-26 PO (13:27)
[2017-02-09] MEDS ORDERED: NAPR1TAB9 PO (10:30)
[2017-02-09] MEDS ORDERED: PROM25TA16 PO (14:59)
[2017-02-09] MEDS ORDERED: POTA1TAB PO (15:03)
[2017-02-09] MEDS ORDERED: MELA1CAP9 PO (15:09)
[2017-02-09] MEDS ORDERED: ASPI1TAB83 PO (15:29)
[2017-02-09] MEDS ORDERED: MULT-506 PO (15:53)
[2017-02-09] MEDS ORDERED: RANI150T2 PO (15:56)
[2017-02-09] MEDS ORDERED: SUCR1TAB PO (15:56)
[2017-02-09] MEDS ORDERED: MRLP527 PO (15:56)
[2017-02-09] MEDS ORDERED: CYM60 PO (15:56)
[2017-02-09] MEDS ORDERED: SNG10 PO (15:59)
[2017-02-09] MEDS ORDERED: ADVIN50/60 INH (16:10)
[2017-02-09] MEDS ORDERED: BUSP5TAB59 PO (16:26)
[2017-02-09] MEDS ORDERED: GLC500 PO (16:26)
[2017-02-09] MEDS ORDERED: DIPH25TA32 PO (16:27)
[2017-02-09] MEDS ORDERED: MTR800 PO (16:31)
[2017-02-09] MEDS ORDERED: HYDR0.5C TOP (16:59)
[2017-02-09] MEDS ORDERED: TOLT2TAB9 PO (17:08)
[2017-02-09] MEDS ORDERED: VLT500 PO (19:28)
[2017-02-09] MEDS ORDERED: SENN-65 PO (20:07)
[2017-02-09] MEDS ORDERED: FLNIN/ NAE (20:57)
[2017-02-09] MEDS ORDERED: METO-157 PO (21:00)
[2017-02-09] MEDS ORDERED: ATOR-26 PO (21:11)
[2017-02-09] MEDS ORDERED: DICY10CA12 PO (21:39)
[2017-02-09] MEDS ORDERED: LSN25 PO (21:39)
[2017-02-09] MEDS ORDERED: FERR325T PO (21:44)
[2017-02-09] MEDS ORDERED: AMT100 PO (21:46)
[2017-02-09] MEDS ORDERED: INSDGIPEN SC (22:29)
[2017-02-09] MEDS ORDERED: IPRASOL4 INH (22:43)
[2017-04-04] MEDS ORDERED: ESTCR PV (18:18)
[2017-04-22] MEDS ORDERED: MIRA100T PO (21:50)
[2017-06-06] MEDS ORDERED: OXYB5TAB74 PO (14:15)
== END 2016-11-21 21:04 | disposition home or self-care (01) ==
LOC: C.EDB 18:08 → C.EDA 21:04
DX: R10.32 Left lower quadrant pain (principal); R19.7 Diarrhea, unspecified; R11.2 Nausea with vomiting, unspecified; J45.909 Unspecified asthma, uncomplicated; E11.43 Type 2 diabetes mellitus with diabetic autonomic (poly)neuropathy; I10 Essential (primary) hypertension; K21.9 Gastro-esophageal reflux disease without esophagitis; E78.00 Pure hypercholesterolemia, unspecified; Z79.899 Other long term (current) drug therapy; Z79.4 Long term (current) use of insulin; Z79.82 Long term (current) use of aspirin; Z87.19 Personal history of other diseases of the digestive system; Z83.3 Family history of diabetes mellitus; Z82.49 Family history of ischemic heart disease and other diseases of the circulatory system

== ENCOUNTER 2016-12-11 14:38 | Emergency (ER) | payer OTHER ==
[~2016-12-11] VITALS: Ht 154.9 cm; Wt 96.6 kg
[2016-12-11 14:48] VITALS: TEMP 37.1; Ht 154.9 cm; Wt 96.6 kg
[2016-12-11] MEDS ORDERED: MoRPHine SULFATE 10 MG/ML CARP/VIAL IM STA (15:10)
[2016-12-11] MEDS ORDERED: PROMETHAZINE HCL INJ 25 MG/ML 1 ML VIAL IM STA (15:10)
--- NOTE | 2016-12-11 15:54 | EMERGENCY ROOM VISIT NOTE ---
History First contact with patient: 14:59 Chief Complaint: HIP PAIN Stated Complaint: BILAT HIP PAIN History of Present Illness The patient is a 56 year old female who presents to the Emergency Room with complaints of bilateral hip pain. The patient reports that one week ago, she woke up with pain radiating across both of her hips. She states that the pain remained for 2 days, then resolved. She reports that the pain returned today when she woke up. She has had similar pain like this in the past. She was seen here recently for hip pain. The pain does not really eating into her legs. She denies any abdominal pain, nausea, vomiting, numbness, weakness, changes in bowel movements or urinary symptoms. She rates her overall discomfort a 9/10 and is not taking anything at home for the pain. Review of Systems A complete 6 point review of systems was reviewed with the patient with pertinent positives and negatives as per history of present illness. All else were negative. Past Medical/Surgical History Medical Problems: (1) Asthma (2) Cervicalgia (3) Diabetes mellitus type 2 (4) Diabetic gastroparesis (5) Diverticulosis Colon (W/O Ment Of Hemorrhage) (6) Diverticulosis Sml Intestine (W/O Ment Of Hemorg) (7) Essential hypertension (8) Gastroesophageal reflux disease (9) Irritable Bowel Syndrome (10) Migraine Unspecified W/O Intractable Migraine (11) Pure Hypercholesterolem (12) Tubal Ligation Status Surgical Problems: (1) H/O: hysterectomy (2) History of tonsillectomy and adenoidectomy (3) History of tubal ligation Social History Problems: (1) Herpes simplex Family History Diabetes mellitus FH: cancer FHx: heart disease Hypertension Social History Smoking Status: Former Smoker Alcohol Use: none Drug Use: none Marital Status: in relationship Housing Status: lives with significant other Occupation Status: disabled Current/Historical Medications Scheduled Amitriptyline HCl (Amitriptyline HCl), 100 MG PO HS Aspirin (Aspirin), 81 MG PO DAILY Atorvastatin (Atorvastatin Calcium), 40 MG PO HS Buspirone Hcl (Buspirone Hcl), 5 MG PO BID Dicyclomine Hcl (Dicyclomine Hcl), 10 MG PO QID Duloxetine HCl (Duloxetine HCl), 60 MG PO HS Esomeprazole Magnesium (Nexium), 40 MG PO DAILY Ferrous Sulfate (Ferrous Sulfate), 325 MG PO TIDM Hydroxyzine Pamoate (Vistaril), 25 MG PO BID Insulin Glargine (Lantus Solostar), 5 UNITS SC HS Lisinopril (Lisinopril), 2.5 MG PO DAILY Melatonin (Melatonin), 10 MG PO HS Metformin HCl (Metformin HCl), 500 MG PO BID Metoclopramide Hcl (Reglan), 10 MG PO ACHS Montelukast Sod (Montelukast Sodium), 10 MG PO QAM Multivitamin (Multivitamin), 1 TAB PO DAILY Polyethylene (Polyethylene Glycol 3350), 17 GM PO QAM Potassium Gluconate (Potassium Gluconate), 1,190 MG PO DAILY Ranitidine HCl (Ranitidine HCl), 150 MG PO HS Senna/Docusate Sod (Senokot S), 1 TAB PO QAM Sucralfate (Sucralfate), 1 GM PO ACHS Trospium Chloride (Trospium Chloride), 20 MG PO BID Scheduled PRN Acetaminophen (Tylenol), 1,000 MG PO UD PRN for Pain or Fever Diphenhydramine Hcl (Diphenhydramine Hcl), 25-50 MG PO Q4-6HRS PRN for Itching Fluticasone Prop/Salmeterol (Advair Diskus 500/50 60 Dose), 1 PUFF INH BID PRN for Shortness of Breath Fluticasone Propionate (Fluticasone Propionate), 2 SPRAYS JG DAILY PRN for Allergy Symptoms Hydrocortisone (Topical) (Hydrocortisone), 1 APPLN TOP UD PRN for Itching Ipratropium-Albuterol (Duoneb), 1 TREATMENT INH BID PRN for SOB/Wheezing Naproxen (Aleve), 440 MG PO Q12 PRN for Pain Promethazine HCl (Promethazine HCl), 25 MG PO Q6H PRN for Nausea Valacyclovir HCl (Valacyclovir HCl), 500 MG PO TID PRN for Outbreaks Allergies Coded Allergies: Hydromorphone (Verified Allergy, Severe, itching, 11/19/16) Ondansetron (Verified Allergy, Intermediate, hives; RASH, 11/19/16) Sulfa Antibiotics (Verified Allergy, Intermediate, rash, 11/19/16) Aminoglycosides (Verified Allergy, Unknown, >, 11/19/16) Bacitracin (Verified Allergy, Unknown, >, 11/19/16) Ceftriaxone (Verified Allergy, Unknown, Rash, hives and itchiness., ) Cephalexin (Unverified Allergy, Unknown, hives, 11/19/16) Latex1 -Allergic Contact Dermititis (Verified Allergy, Unknown, 11/19/16) Neomycin (Verified Allergy, Unknown, >, 11/19/16) Polymyxin B (Verified Allergy, Unknown, >, 11/19/16) Sulfamethoxazole w/Trimethoprim (Verified Allergy, Unknown, Unknown, ) Physical Exam Vital Signs Date Time Temp Pulse Resp B/P Pulse Ox O2 Delivery O2 Flow Rate FiO2 12/11/16 16:09 76 18 152/80 97 12/11/16 15:27 81 18 96 Room Air 12/11/16 14:48 37.1 91 18 132/80 97 Physical Exam VITALS: Vitals are noted on the nurse's note and reviewed by myself. Vital signs stable. GENERAL: This is a 48-year-old female, in no acute distress, nondiaphoretic, well-developed well-nourished. SKIN: Capillary reflex less than 2 seconds. HEART: Regular rate and rhythm without murmurs gallops or rubs. LUNGS: Clear to auscultation bilaterally without wheezes, rales or rhonchi. No retractions or accessory muscle use. ABDOMEN: Positive bowel sounds x 4. Soft, nontender to palpation. MUSCULOSKELETAL: Mild tenderness across the lumbar region with no focal tenderness. Full range of motion of bilateral lower extremities. Strength 5/5 throughout. NEURO: Patient was alert and oriented to person place and time. Normal sensation to light and sharp touch. Medical Decision & Procedures Medications Administered Medications (Trade) Dose Ordered Sig/Antony Route Start Time Stop Time Status Last Admin Dose Admin Morphine Sulfate (MoRPHine SULFATE INJ) 10 mg NOW STAT IM 12/11/16 15:10 12/11/16 15:13 DC 12/11/16 15:19 10 MG Promethazine HCl (Phenergan Inj) 25 mg NOW STAT IM 12/11/16 15:10 12/11/16 15:13 DC 12/11/16 15:19 25 MG Medical Decision Differential diagnosis includes lumbar back pain, hip contusion, hip fracture, musculoskeletal strain, among others. The patient was evaluated as above. Previous records were reviewed. The patient has been seen here a few months ago for bilateral hip pain at that time , x-rays were obtained which were normal. There are no concerning symptoms on today's exam and I do not feel further workup is necessary. The patient is on a 2 narcotic injection per month treatment plan. She was given 10 mg morphine IM and 25 mg Phenergan IM. She will follow-up with her pain management provider. She verbalized understanding and was discharged home in good condition with a family member driving. The patient was independently evaluated by Dr. Rdz, ED attending physician, who agreed with my assessment and treatment plan. Impression Primary Impression: Bilateral hip pain Departure Information Dispostion Home / Self-Care Condition GOOD Referrals Cipriano Peña M.D. (MEDICAL) (PCP) Patient Instructions My [facility] Additional Instructions You have been treated in the Emergency Department for hip Pain. You have received pain medicine in the emergency department which impairs your ability to operate a vehicle. It is illegal for you to drive after receiving these medicines. Continue medications at home as prescribed. Follow-up with your primary care provider and pain management provider as needed. Return to the Emergency Department if your current symptoms worsen despite treatment course outlined above, or if you develop any of the following symptoms : intractable pain despite aforementioned treatment course, loss of control of your bowel or bladder, numbness or tingling in your groin, or development of a fever.
[2016-12-11 16:09] VITALS: BP 152/80; PULSE 76; O2SAT 97
[2017-01-01] MEDS ORDERED: LPT40 PO (15:56)
[2017-01-05] MEDS ORDERED: ATOR-26 PO (13:27)
[2017-02-09] MEDS ORDERED: NAPR1TAB9 PO (10:30)
[2017-02-09] MEDS ORDERED: PROM25TA16 PO (14:59)
[2017-02-09] MEDS ORDERED: POTA1TAB PO (15:03)
[2017-02-09] MEDS ORDERED: MELA1CAP9 PO (15:09)
[2017-02-09] MEDS ORDERED: ASPI1TAB83 PO (15:29)
[2017-02-09] MEDS ORDERED: MULT-506 PO (15:53)
[2017-02-09] MEDS ORDERED: RANI150T2 PO (15:56)
[2017-02-09] MEDS ORDERED: CYM60 PO (15:56)
[2017-02-09] MEDS ORDERED: MRLP527 PO (15:56)
[2017-02-09] MEDS ORDERED: SUCR1TAB PO (15:56)
[2017-02-09] MEDS ORDERED: SNG10 PO (15:59)
[2017-02-09] MEDS ORDERED: ADVIN50/60 INH (16:10)
[2017-02-09] MEDS ORDERED: GLC500 PO (16:26)
[2017-02-09] MEDS ORDERED: BUSP5TAB59 PO (16:26)
[2017-02-09] MEDS ORDERED: DIPH25TA32 PO (16:27)
[2017-02-09] MEDS ORDERED: MTR800 PO (16:31)
[2017-02-09] MEDS ORDERED: HYDR0.5C TOP (16:59)
[2017-02-09] MEDS ORDERED: TOLT2TAB9 PO (17:08)
[2017-02-09] MEDS ORDERED: VLT500 PO (19:28)
[2017-02-09] MEDS ORDERED: SENN-65 PO (20:07)
[2017-02-09] MEDS ORDERED: FLNIN/ NAE (20:57)
[2017-02-09] MEDS ORDERED: METO-157 PO (21:00)
[2017-02-09] MEDS ORDERED: ATOR-26 PO (21:11)
[2017-02-09] MEDS ORDERED: DICY10CA12 PO (21:39)
[2017-02-09] MEDS ORDERED: LSN25 PO (21:39)
[2017-02-09] MEDS ORDERED: FERR325T PO (21:44)
[2017-02-09] MEDS ORDERED: AMT100 PO (21:46)
[2017-02-09] MEDS ORDERED: INSDGIPEN SC (22:29)
[2017-02-09] MEDS ORDERED: IPRASOL4 INH (22:43)
[2017-04-04] MEDS ORDERED: ESTCR PV (18:18)
[2017-04-22] MEDS ORDERED: MIRA100T PO (21:50)
[2017-06-06] MEDS ORDERED: OXYB5TAB74 PO (14:15)
== END 2016-12-11 16:10 | disposition home or self-care (01) ==
LOC: C.EDB 14:38 → C.EDD 16:10
DX: M25.551 Pain in right hip (principal); M25.552 Pain in left hip; I10 Essential (primary) hypertension; E78.00 Pure hypercholesterolemia, unspecified; E11.43 Type 2 diabetes mellitus with diabetic autonomic (poly)neuropathy; K57.50 Diverticulosis of both small and large intestine without perforation or abscess without bleeding; K21.9 Gastro-esophageal reflux disease without esophagitis; K58.9 Irritable bowel syndrome, unspecified; J45.909 Unspecified asthma, uncomplicated; Z98.51 Tubal ligation status; Z90.710 Acquired absence of both cervix and uterus; Z98.890 Other specified postprocedural states; Z79.4 Long term (current) use of insulin; Z79.82 Long term (current) use of aspirin; Z79.84 Long term (current) use of oral hypoglycemic drugs; Z79.899 Other long term (current) drug therapy; Z88.1 Allergy status to other antibiotic agents; Z88.2 Allergy status to sulfonamides; Z88.5 Allergy status to narcotic agent; Z88.8 Allergy status to other drugs, medicaments and biological substances; Z91.040 Latex allergy status; Z83.3 Family history of diabetes mellitus; Z80.9 Family history of malignant neoplasm, unspecified; Z82.49 Family history of ischemic heart disease and other diseases of the circulatory system

== ENCOUNTER 2016-12-15 14:58 | Emergency (ER) | payer OTHER ==
[~2016-12-15] VITALS: Ht 154.9 cm; Wt 97.7 kg
[2016-12-15 15:09] VITALS: TEMP 36.3; Ht 154.9 cm; Wt 97.7 kg
[2016-12-15] MEDS ORDERED: KETOROLAC TROMETHAMINE 30 MG/ML VIAL IV STA (15:28)
[2016-12-15 15:31] VITALS: O2SAT 96
[2016-12-15] MEDS ORDERED: ONDANSETRON INJ 2 MG/ML 2 ML VIAL ONE (15:48)
[2016-12-15 15:58] LABS: HEMATOCRIT 38.2 % (37-47); MEAN CELL VOLUME 83.2 fL (80-100); MEAN CORPUSCULAR HEMOGLOBIN 28.5 pg (25-34); MEAN CORPUSCULAR HGB CONC 34.3 g/dl (32-36); PLATELET COUNT 380 K/uL (130-400); RED BLOOD COUNT 4.59 M/uL (4.2-5.4); WHITE BLOOD COUNT 12.17 K/uL (4.8-10.8)
[2016-12-15 16:11] LABS: INR 0.9 (0.9-1.1); PROTHROMBIN TIME (PATIENT) 9.9 SECONDS (9.0-12.0)
--- NOTE | 2016-12-15 16:15 | DIAGNOSTIC IMAGING REPORT ---
CHEST 2 VIEWS ROUTINE CLINICAL HISTORY: Cough. Evaluate for pneumonia. COMPARISON STUDY: Chest radiograph April 05, 2017. FINDINGS: Lung volumes are at the lower limits of normal. There is no pneumothorax or pleural effusion. There is mild right infrahilar opacity. Left lung is clear. There is no evidence of pulmonary edema. Cardiac size is stable. IMPRESSION: Slight increase in right infrahilar opacity. Atelectasis is favored although an area of pneumonia could appear similar. Electronically signed by: Mitchell Anderson M.D. 12/15/2016 4:13 PM Dictated Date/Time: 12/15/2016 4:11 PM
[2016-12-15 16:24] LABS: BASO % 0.2 %; BASO ABS # 0.03 K/uL (0-0.2); COMPLETE YES; EOS % 3.3 %; IG% 0.2 %; LYMPH % 41.1 %; MONO % 8.1 %; NEUT % 47.1 %
[2016-12-15 16:34] LABS: BUN/CREATININE RATIO 16.2 (10-20); CALCIUM 8.8 mg/dl (8.5-10.1); CREATININE 0.86 mg/dl (0.60-1.20)
[2016-12-15] MEDS ORDERED: AZITTAB PO (16:42)
[2016-12-15 16:57] VITALS: BP 98/64; PULSE 93; O2SAT 97
--- NOTE | 2016-12-15 19:39 | EMERGENCY ROOM VISIT NOTE ---
History Report prepared by Tamera: Taco Bello Under the Supervision of: Dr. Raul Hawkins M.D. First contact with patient: 15:21 Chief Complaint: CHEST PAIN Stated Complaint: CHEST PAIN History of Present Illness The patient is a 56 year old female who presents to the Emergency Room with complaints of persistent left sided chest pain that started around 1300 this afternoon while sweeping the floor. She describes this pain as sharp and radiating up her back. It worsens with movement and deep breaths. Associated symptoms include nausea, cough and cold symptoms. The patient denies abdominal pain, fevers, swelling of the legs, and additional associated symptoms. Source of History: patient Onset: 1300 this afternoon Position: chest (left) Quality: sharp Timing: other (Persistent) Modifying Factors (Worsening): breathing, movement Associated Symptoms: + cough, + nausea, No abdominal pain, No fevers Review of Systems See HPI for pertinent positives & negatives. A total of 10 systems reviewed and were otherwise negative. Past Medical & Surgical Medical Problems: (1) Asthma (2) Cervicalgia (3) Diabetes mellitus type 2 (4) Diabetic gastroparesis (5) Diverticulosis Colon (W/O Ment Of Hemorrhage) (6) Diverticulosis Sml Intestine (W/O Ment Of Hemorg) (7) Essential hypertension (8) Gastroesophageal reflux disease (9) Irritable Bowel Syndrome (10) Migraine Unspecified W/O Intractable Migraine (11) Pure Hypercholesterolem (12) Tubal Ligation Status Surgical Problems: (1) H/O: hysterectomy (2) History of tonsillectomy and adenoidectomy (3) History of tubal ligation Social History Problems: (1) Herpes simplex Family History Diabetes mellitus FH: cancer FHx: heart disease Hypertension Social History Smoking Status: Former Smoker Alcohol Use: none Drug Use: none Marital Status: in relationship Housing Status: lives with significant other Occupation Status: disabled Current/Historical Medications Scheduled Amitriptyline HCl (Amitriptyline HCl), 100 MG PO HS Aspirin (Aspirin), 81 MG PO DAILY Atorvastatin (Atorvastatin Calcium), 40 MG PO HS Azithromycin (Zithromax Z-Moiz), 1 PKT PO UD Buspirone Hcl (Buspirone Hcl), 5 MG PO BID Dicyclomine Hcl (Dicyclomine Hcl), 10 MG PO QID Duloxetine HCl (Duloxetine HCl), 60 MG PO HS Esomeprazole Magnesium (Nexium), 40 MG PO DAILY Ferrous Sulfate (Ferrous Sulfate), 325 MG PO TIDM Hydroxyzine Pamoate (Vistaril), 25 MG PO BID Insulin Glargine (Lantus Solostar), 5 UNITS SC HS Lisinopril (Lisinopril), 2.5 MG PO DAILY Melatonin (Melatonin), 10 MG PO HS Metformin HCl (Metformin HCl), 500 MG PO BID Metoclopramide Hcl (Reglan), 10 MG PO ACHS Montelukast Sod (Montelukast Sodium), 10 MG PO QAM Multivitamin (Multivitamin), 1 TAB PO DAILY Polyethylene (Polyethylene Glycol 3350), 17 GM PO QAM Potassium Gluconate (Potassium Gluconate), 1,190 MG PO DAILY Ranitidine HCl (Ranitidine HCl), 150 MG PO HS Senna/Docusate Sod (Senokot S), 1 TAB PO QAM Sucralfate (Sucralfate), 1 GM PO ACHS Trospium Chloride (Trospium Chloride), 20 MG PO BID Scheduled PRN Acetaminophen (Tylenol), 1,000 MG PO UD PRN for Pain or Fever Diphenhydramine Hcl (Diphenhydramine Hcl), 25-50 MG PO Q4-6HRS PRN for Itching Fluticasone Prop/Salmeterol (Advair Diskus 500/50 60 Dose), 1 PUFF INH BID PRN for Shortness of Breath Fluticasone Propionate (Fluticasone Propionate), 2 SPRAYS JG DAILY PRN for Allergy Symptoms Hydrocortisone (Topical) (Hydrocortisone), 1 APPLN TOP UD PRN for Itching Ipratropium-Albuterol (Duoneb), 1 TREATMENT INH BID PRN for SOB/Wheezing Naproxen (Aleve), 440 MG PO Q12 PRN for Pain Promethazine HCl (Promethazine HCl), 25 MG PO Q6H PRN for Nausea Valacyclovir HCl (Valacyclovir HCl), 500 MG PO TID PRN for Outbreaks Allergies Coded Allergies: Hydromorphone (Verified Allergy, Severe, itching, 11/19/16) Ondansetron (Verified Allergy, Intermediate, hives; RASH, 11/19/16) Sulfa Antibiotics (Verified Allergy, Intermediate, rash, 11/19/16) Aminoglycosides (Verified Allergy, Unknown, >, 11/19/16) Bacitracin (Verified Allergy, Unknown, >, 11/19/16) Ceftriaxone (Verified Allergy, Unknown, Rash, hives and itchiness., ) Cephalexin (Unverified Allergy, Unknown, hives, 11/19/16) Latex1 -Allergic Contact Dermititis (Verified Allergy, Unknown, 11/19/16) Neomycin (Verified Allergy, Unknown, >, 11/19/16) Polymyxin B (Verified Allergy, Unknown, >, 11/19/16) Sulfamethoxazole w/Trimethoprim (Verified Allergy, Unknown, Unknown, ) Physical Exam Vital Signs Date Time Temp Pulse Resp B/P Pulse Ox O2 Delivery O2 Flow Rate FiO2 12/15/16 16:57 93 18 98/64 97 12/15/16 15:50 92 18 127/70 95 Room Air 12/15/16 15:31 96 Room Air 12/15/16 15:29 Room Air 12/15/16 15:29 96 Room Air 12/15/16 15:09 36.3 97 20 117/82 95 Room Air Physical Exam Constitutional: Vital signs reviewed. Eyes: Pupils are equal round reactive to light. Conjunctiva are noninjected. ENT: Pharynx is clear without erythema or exudate. Mucous membranes are moist. Neck supple without meningeal signs. Respiratory: Clear to auscultation bilaterally. Breath sounds are equal bilaterally. Cardiovascular: Regular rate and rhythm. No rubs or gallops. GI: Soft, nondistended and nontender. Bowel sounds are present. Musculoskeletal: Very reproducible chest wall tenderness to sternum and left chest wall. No peripheral edema. No lower extremity tenderness. Integumentary: No cyanosis. Neurological: The patient is awake and alert. No focal deficits. Psychiatric: Normal affect. Medical Decision & Procedures ER Provider Diagnostic Interpretation: X-ray results as stated below per interpretation by me and the radiologist: CHEST 2 VIEWS ROUTINE CLINICAL HISTORY: Cough. Evaluate for pneumonia. COMPARISON STUDY: Chest radiograph April 05, 2017. FINDINGS: Lung volumes are at the lower limits of normal. There is no pneumothorax or pleural effusion. There is mild right infrahilar opacity. Left lung is clear. There is no evidence of pulmonary edema. Cardiac size is stable. IMPRESSION: Slight increase in right infrahilar opacity. Atelectasis is favored although an area of pneumonia could appear similar. Electronically signed by: Mitchell Anderson M.D. 12/15/2016 4:13 PM Dictated Date/Time: 12/15/2016 4:11 PM Laboratory Results 12/15/16 15:43 Red Blood Count 4.59, Mean Corpuscular Volume 83.2, Mean Corpuscular Hemoglobin 28.5, Mean Corpuscular Hemoglobin Concent 34.3, Mean Platelet Volume 9.0, Neutrophils (%) (Auto) 47.1, Lymphocytes (%) (Auto) 41.1, Monocytes (%) (Auto) 8.1, Eosinophils (%) (Auto) 3.3, Basophils (%) (Auto) 0.2, Neutrophils # (Auto) 5.72, Lymphocytes # (Auto) 5.00, Monocytes # (Auto) 0.99, Eosinophils # (Auto) 0.40, Basophils # (Auto) 0.03 12/15/16 15:43 Test 12/15/16 15:43 12/15/16 15:49 White Blood Count 12.17 K/uL (4.8-10.8) Red Blood Count 4.59 M/uL (4.2-5.4) Hemoglobin 13.1 g/dL (12.0-16.0) Hematocrit 38.2 % (37-47) Mean Corpuscular Volume 83.2 fL (80-100) Mean Corpuscular Hemoglobin 28.5 pg (25-34) Mean Corpuscular Hemoglobin Concent 34.3 g/dl (32-36) Platelet Count 380 K/uL (130-400) Mean Platelet Volume 9.0 fL (7.4-10.4) Neutrophils (%) (Auto) 47.1 % Lymphocytes (%) (Auto) 41.1 % Monocytes (%) (Auto) 8.1 % Eosinophils (%) (Auto) 3.3 % Basophils (%) (Auto) 0.2 % Neutrophils # (Auto) 5.72 K/uL (1.4-6.5) Lymphocytes # (Auto) 5.00 K/uL (1.2-3.4) Monocytes # (Auto) 0.99 K/uL (0.11-0.59) Eosinophils # (Auto) 0.40 K/uL (0-0.5) Basophils # (Auto) 0.03 K/uL (0-0.2) RDW Standard Deviation 44.7 fL (36.4-46.3) RDW Coefficient of Variation 14.7 % (11.5-14.5) Immature Granulocyte % (Auto) 0.2 % Immature Granulocyte # (Auto) 0.03 K/uL (0.00-0.02) Prothrombin Time 9.9 SECONDS (9.0-12.0) Prothromb Time International Ratio 0.9 (0.9-1.1) Activated Partial Thromboplast Time 25.2 SECONDS (21.0-31.0) Partial Thromboplastin Ratio 1.0 Anion Gap 9.0 mmol/L (3-11) Est Creatinine Clear Calc Drug Dose 76.2 ml/min Estimated GFR () 86.3 Estimated GFR (Non- 74.5 BUN/Creatinine Ratio 16.2 (10-20) Calcium Level 8.8 mg/dl (8.5-10.1) Bedside D-Dimer 162 ng/mlFEU (0-450) Bedside Troponin I 0.000 ng/ml (0-0.045) Laboratory results as reviewed by me. Medications Administered Medications (Trade) Dose Ordered Sig/Antony Route Start Time Stop Time Status Last Admin Dose Admin Ketorolac Tromethamine (Toradol Inj) 10 mg NOW STAT IV 12/15/16 15:28 12/15/16 15:31 DC 12/15/16 15:58 10 MG ECG Indication: chest pain Rate (beats per minute): 89 Rhythm: normal sinus Findings: no acute ischemic change, no ectopy ED Course 1524: The patient was evaluated in room A11. A complete history and physical exam was performed. 1528: Ordered Toradol Injection 10 mg IV. 1641: I reassessed the patient. She told me that she has been experiencing a cough and cold symptoms. Will start on antibiotic. 1700: Upon reevaluation, the patient appeared to have improvement of her symptoms. I discussed tonight's findings with the patient. She verbalized agreement of the treatment plan. She was discharged home. Medical Decision This is a 56-year-old female presents with chest pain. Differential diagnosis includes pleurisy, pneumonia, musculoskeletal pain, bronchitis, pericarditis, PE. I did perform a limited focused review of portions of the patient's old chart on the electronic medical record. The patient was evaluated in the ED with chest pain on October 19. Worked up and diagnosed with likely musculoskeletal chest pain. I did evaluate the patient as noted above. The patient is presenting with chest pain which is very reproducible on movement, deep breaths and palpation. She also has had some cold symptoms. IV access was established. 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 I did order and personally review the patient's 12-lead EKG and chest x-ray as described above. Twelve-lead EKG is unremarkable. Chest x-ray is concerning for possible right-sided infiltrate. I did order and review the patient's blood work as noted in the electronic medical record. Troponin and d-dimer are both negative. I did treat the patient with Toradol IV. I did discuss the test results with the patient. I did recommend close follow up with her physician for further evaluation. I did send a prescription to her pharmacy for Zithromax. She was discharged in good condition. Impression Primary Impression: Pneumonia involving right lung Additional Impression: Chest wall pain Scribe Attestation The scribe's documentation has been prepared under my direct and personally reviewed by me in its entirety. I confirm that the note above accurately reflects all work, treatment, procedures, and medical decision making performed by me. Departure Information Dispostion Home / Self-Care Prescriptions Azithromycin (ZITHROMAX Z-MOIZ) 250 Mg Tab 1 PKT PO UD for 5 Days, #1 PKT Prov: Raul Hawkins M.D. 12/15/16 Referrals Cipriano Peña M.D. (MEDICAL) (PCP) Forms HOME CARE DOCUMENTATION FORM, IMPORTANT VISIT INFORMATION Patient Instructions My [facility] Additional Instructions You have been examined and treated today on an emergency basis only. This is not a substitute for, or an effort to provide, complete comprehensive medical care. It is impossible to recognize and treat all injuries or illnesses in a single emergency department visit. It is therefore important that you follow up closely with your physician. Call as soon as possible for an appointment. Return for worsening symptoms or if you develop fever, vomiting, difficulty breathing or any other concerning symptoms Problem Qualifiers
[2017-01-01] MEDS ORDERED: LPT40 PO (15:56)
[2017-01-05] MEDS ORDERED: ATOR-26 PO (13:27)
[2017-02-09] MEDS ORDERED: NAPR1TAB9 PO (10:30)
[2017-02-09] MEDS ORDERED: PROM25TA16 PO (14:59)
[2017-02-09] MEDS ORDERED: POTA1TAB PO (15:03)
[2017-02-09] MEDS ORDERED: MELA1CAP9 PO (15:09)
[2017-02-09] MEDS ORDERED: ASPI1TAB83 PO (15:29)
[2017-02-09] MEDS ORDERED: MULT-506 PO (15:53)
[2017-02-09] MEDS ORDERED: RANI150T2 PO (15:56)
[2017-02-09] MEDS ORDERED: SUCR1TAB PO (15:56)
[2017-02-09] MEDS ORDERED: MRLP527 PO (15:56)
[2017-02-09] MEDS ORDERED: CYM60 PO (15:56)
[2017-02-09] MEDS ORDERED: SNG10 PO (15:59)
[2017-02-09] MEDS ORDERED: ADVIN50/60 INH (16:10)
[2017-02-09] MEDS ORDERED: GLC500 PO (16:26)
[2017-02-09] MEDS ORDERED: BUSP5TAB59 PO (16:26)
[2017-02-09] MEDS ORDERED: DIPH25TA32 PO (16:27)
[2017-02-09] MEDS ORDERED: MTR800 PO (16:31)
[2017-02-09] MEDS ORDERED: HYDR0.5C TOP (16:59)
[2017-02-09] MEDS ORDERED: TOLT2TAB9 PO (17:08)
[2017-02-09] MEDS ORDERED: VLT500 PO (19:28)
[2017-02-09] MEDS ORDERED: SENN-65 PO (20:07)
[2017-02-09] MEDS ORDERED: FLNIN/ NAE (20:57)
[2017-02-09] MEDS ORDERED: METO-157 PO (21:00)
[2017-02-09] MEDS ORDERED: ATOR-26 PO (21:11)
[2017-02-09] MEDS ORDERED: LSN25 PO (21:39)
[2017-02-09] MEDS ORDERED: DICY10CA12 PO (21:39)
[2017-02-09] MEDS ORDERED: FERR325T PO (21:44)
[2017-02-09] MEDS ORDERED: AMT100 PO (21:46)
[2017-02-09] MEDS ORDERED: INSDGIPEN SC (22:29)
[2017-02-09] MEDS ORDERED: IPRASOL4 INH (22:43)
[2017-04-04] MEDS ORDERED: ESTCR PV (18:18)
[2017-04-22] MEDS ORDERED: MIRA100T PO (21:50)
[2017-06-06] MEDS ORDERED: OXYB5TAB74 PO (14:15)
== END 2016-12-15 16:58 | disposition home or self-care (01) ==
LOC: C.EDB 14:59 → C.EDA 16:58
DX: J18.9 Pneumonia, unspecified organism (principal); I10 Essential (primary) hypertension; E11.9 Type 2 diabetes mellitus without complications; E78.00 Pure hypercholesterolemia, unspecified; K21.9 Gastro-esophageal reflux disease without esophagitis; K58.9 Irritable bowel syndrome, unspecified; K57.50 Diverticulosis of both small and large intestine without perforation or abscess without bleeding; J45.909 Unspecified asthma, uncomplicated; Z98.51 Tubal ligation status; Z90.710 Acquired absence of both cervix and uterus; Z87.891 Personal history of nicotine dependence; Z79.82 Long term (current) use of aspirin; Z79.4 Long term (current) use of insulin; Z79.84 Long term (current) use of oral hypoglycemic drugs; Z79.899 Other long term (current) drug therapy; Z88.2 Allergy status to sulfonamides; Z88.5 Allergy status to narcotic agent; Z88.8 Allergy status to other drugs, medicaments and biological substances; Z91.040 Latex allergy status

== ENCOUNTER 2016-12-24 15:29 | Emergency (ER) | payer OTHER ==
[~2016-12-24] VITALS: Ht 154.9 cm; Wt 96.6 kg
[2016-12-24 15:31] VITALS: TEMP 36.9; Ht 154.9 cm; Wt 96.6 kg
[2016-12-24] MEDS ORDERED: PANTOprazole SOD 40 MG TAB PO STA (16:33)
[2016-12-24] MEDS ORDERED: PROMETHAZINE HCL INJ 25 MG/ML 1 ML VIAL IM STA (16:33)
[2016-12-24] MEDS ORDERED: MoRPHine SULFATE 10 MG/ML CARP/VIAL IM STA (16:33)
--- NOTE | 2016-12-24 16:35 | EMERGENCY ROOM VISIT NOTE ---
History Report prepared by Tamera: Taco Bello Under the Supervision of: Dr. Adrianne Burrows M.D. First contact with patient: 16:29 Chief Complaint: ILLNESS Stated Complaint: CHEST, HEAD AND STOMACH PAIN History of Present Illness The patient is a 56 year old female who presents to the Emergency Room with complaints of worsening pain in her head that "radiates down into her stomach." The patient reports that she had 6 bottom teeth pulled 5 days ago. Today, the patient began experiencing pain in her head, neck, jaw, chest, and stomach. She rates her pain a 9/10 in severity. The patient is currently taking 800 mg Ibuprofen regularly for pain. The patient denies nausea, vomiting, diarrhea, and additional associated symptoms. Source of History: patient Onset: Today Position: head Symptom Intensity: 9/10 Timing: worsening Modifying Factors (Relieving): other (None) Associated Symptoms: No diarrhea, No nausea, No vomiting Review of Systems See HPI for pertinent positives & negatives. A total of 10 systems reviewed and were otherwise negative. Past Medical & Surgical Medical Problems: (1) Asthma (2) Cervicalgia (3) Diabetes mellitus type 2 (4) Diabetic gastroparesis (5) Diverticulosis Colon (W/O Ment Of Hemorrhage) (6) Diverticulosis Sml Intestine (W/O Ment Of Hemorg) (7) Essential hypertension (8) Gastroesophageal reflux disease (9) Irritable Bowel Syndrome (10) Migraine Unspecified W/O Intractable Migraine (11) Pure Hypercholesterolem (12) Tubal Ligation Status Surgical Problems: (1) H/O: hysterectomy (2) History of tonsillectomy and adenoidectomy (3) History of tubal ligation Social History Problems: (1) Herpes simplex Family History Diabetes mellitus FH: cancer FHx: heart disease Hypertension Social History Smoking Status: Former Smoker Alcohol Use: none Drug Use: none Marital Status: in relationship Housing Status: lives with significant other Occupation Status: disabled Current/Historical Medications Scheduled Amitriptyline HCl (Amitriptyline HCl), 100 MG PO HS Aspirin (Aspirin), 81 MG PO DAILY Atorvastatin (Atorvastatin Calcium), 40 MG PO HS Buspirone Hcl (Buspirone Hcl), 5 MG PO BID Dicyclomine Hcl (Dicyclomine Hcl), 10 MG PO QID Duloxetine HCl (Duloxetine HCl), 60 MG PO HS Esomeprazole Magnesium (Nexium), 40 MG PO DAILY Ferrous Sulfate (Ferrous Sulfate), 325 MG PO TIDM Hydroxyzine Pamoate (Vistaril), 25 MG PO BID Insulin Glargine (Lantus Solostar), 5 UNITS SC HS Lisinopril (Lisinopril), 2.5 MG PO DAILY Melatonin (Melatonin), 10 MG PO HS Metformin HCl (Metformin HCl), 500 MG PO BID Metoclopramide Hcl (Reglan), 10 MG PO ACHS Montelukast Sod (Montelukast Sodium), 10 MG PO QAM Multivitamin (Multivitamin), 1 TAB PO DAILY Pantoprazole (Protonix), 40 MG PO DAILY Polyethylene (Polyethylene Glycol 3350), 17 GM PO QAM Potassium Gluconate (Potassium Gluconate), 1,190 MG PO DAILY Ranitidine HCl (Ranitidine HCl), 150 MG PO HS Senna/Docusate Sod (Senokot S), 1 TAB PO QAM Sucralfate (Sucralfate), 1 GM PO ACHS Trospium Chloride (Trospium Chloride), 20 MG PO BID Scheduled PRN Acetaminophen (Tylenol), 1,000 MG PO UD PRN for Pain or Fever Diphenhydramine Hcl (Diphenhydramine Hcl), 25-50 MG PO Q4-6HRS PRN for Itching Fluticasone Prop/Salmeterol (Advair Diskus 500/50 60 Dose), 1 PUFF INH BID PRN for Shortness of Breath Fluticasone Propionate (Fluticasone Propionate), 2 SPRAYS JG DAILY PRN for Allergy Symptoms Hydrocortisone (Topical) (Hydrocortisone), 1 APPLN TOP UD PRN for Itching Ibuprofen (Ibuprofen), 800 MG PO Q8 PRN for Pain Ipratropium-Albuterol (Duoneb), 1 TREATMENT INH BID PRN for SOB/Wheezing Naproxen (Aleve), 440 MG PO Q12 PRN for Pain Promethazine HCl (Promethazine HCl), 25 MG PO Q6H PRN for Nausea Valacyclovir HCl (Valacyclovir HCl), 500 MG PO TID PRN for Outbreaks Allergies Coded Allergies: Hydromorphone (Verified Allergy, Severe, itching, 11/19/16) Ondansetron (Verified Allergy, Intermediate, hives; RASH, 11/19/16) Sulfa Antibiotics (Verified Allergy, Intermediate, rash, 11/19/16) Aminoglycosides (Verified Allergy, Unknown, >, 11/19/16) Bacitracin (Verified Allergy, Unknown, >, 11/19/16) Ceftriaxone (Verified Allergy, Unknown, Rash, hives and itchiness., ) Cephalexin (Unverified Allergy, Unknown, hives, 11/19/16) Latex1 -Allergic Contact Dermititis (Verified Allergy, Unknown, 11/19/16) Neomycin (Verified Allergy, Unknown, >, 11/19/16) Polymyxin B (Verified Allergy, Unknown, >, 11/19/16) Sulfamethoxazole w/Trimethoprim (Verified Allergy, Unknown, Unknown, ) Physical Exam Vital Signs Date Time Temp Pulse Resp B/P Pulse Ox O2 Delivery O2 Flow Rate FiO2 12/24/16 18:22 84 18 151/108 94 12/24/16 15:31 36.9 98 17 111/72 95 Room Air Physical Exam Vital signs reviewed. General: Well-appearing female, in no significant distress. HEENT: No scleral icterus, Mild bruising to right side of mandible. PERRLA, neck supple. No meningeal signs. Atraumatic. Cardiovascular: Regular rate and rhythm, no extra sounds. Pulmonary: Clear to auscultation bilaterally, normal work of breathing. Abdomen: Mild tenderness to upper abdomen. No rebound or guarding. Soft, nondistended, positive bowel sounds. Musculoskeletal: Atraumatic, no peripheral edema. Neurologic: Patient awake alert and oriented x 3 Skin: Warm, dry, no rash Medical Decision & Procedures Medications Administered Medications (Trade) Dose Ordered Sig/Antony Route Start Time Stop Time Status Last Admin Dose Admin Pantoprazole Sodium (Protonix Tab) 40 mg NOW STAT PO 12/24/16 16:33 12/24/16 16:35 DC 12/24/16 16:57 40 MG Morphine Sulfate (MoRPHine SULFATE INJ) 10 mg NOW STAT IM 12/24/16 16:33 12/24/16 16:35 DC 12/24/16 16:58 10 MG Promethazine HCl (Phenergan Inj) 25 mg NOW STAT IM 12/24/16 16:33 12/24/16 16:35 DC 2/24/17 16:33 25 MG ECG Indication: chest pain Rate (beats per minute): 91 Rhythm: normal sinus Findings: nonspecific-ST abn, other (Low voltage QRS) ED Course 1630: Past medical records reviewed. The patient was evaluated in room A2. A complete history and physical examination was performed. 1633: Ordered Phenergan Injection 25 mg IM, Morphine Sulfate 10 mg IM, Protonix Tablet 40 mg PO. 1800: Upon reevaluation, the patient appeared to have improvement of her symptoms. I discussed findings with the patient. She verbalized agreement of the treatment plan. She was discharged home. Medical Decision DDx: Post operative pain, migraine headache, gastritis, dehydration, medication effect. This patient was evaluated and appeared to be in no significant distress. Physical examination is fairly unrevealing. The patient was given morphine 10 mg IM, Phenergan 25 mg IM based on her pain management protocol. She was also given protonic 40 mg orally for suspected gastritis related to recent ibuprofen therapy. There is no evidence of postsurgical infection. Patient had significant improvement of her symptoms. She was discharged to the care of her friend to follow-up with her primary care physician this week and to return to the ER for worsening of symptoms or any medical concerns. Impression Primary Impression: Headache Additional Impression: Gastritis Scribe Attestation The scribe's documentation has been prepared under my direction and personally reviewed by me in its entirety. I confirm that the note above accurately reflects all work, treatment, procedures, and medical decision making performed by me. Departure Information Dispostion Home / Self-Care Prescriptions Pantoprazole (Protonix) 40 Mg Tab 40 MG PO DAILY, #30 TAB Prov: Adrianne Burrows M.D. 12/24/16 Referrals Cipriano Peña M.D. (MEDICAL) (PCP) Forms HOME CARE DOCUMENTATION FORM, IMPORTANT VISIT INFORMATION, WORK / SCHOOL INSTRUCTIONS Patient Instructions My [facility] Additional Instructions Diagnosis: Headache, gastritis Protonix 40 mg daily while taking the ibuprofen. Drink plenty of clear fluids. Follow-up with your physician for reevaluation this week. Return to the ER for worsening of symptoms or any medical concerns. Problem Qualifiers Primary Impression: Headache Headache type: tension-type Headache chronicity pattern: acute headache Intractability: intractable Qualified Codes: G44.201 - Tension-type headache , unspecified, intractable Additional Impression: Gastritis Gastritis type: other gastritis Chronicity: acute Gastritis bleeding: without bleeding Qualified Codes: K29.00 - Acute gastritis without bleeding
[2016-12-24] MEDS ORDERED: PANT40TA PO (18:13)
[2016-12-24 18:22] VITALS: BP 151/108; PULSE 84; O2SAT 94
[2017-01-01] MEDS ORDERED: LPT40 PO (15:56)
[2017-01-05] MEDS ORDERED: ATOR-26 PO (13:27)
[2017-02-09] MEDS ORDERED: NAPR1TAB9 PO (10:30)
[2017-02-09] MEDS ORDERED: PROM25TA16 PO (14:59)
[2017-02-09] MEDS ORDERED: POTA1TAB PO (15:03)
[2017-02-09] MEDS ORDERED: MELA1CAP9 PO (15:09)
[2017-02-09] MEDS ORDERED: ASPI1TAB83 PO (15:29)
[2017-02-09] MEDS ORDERED: MULT-506 PO (15:53)
[2017-02-09] MEDS ORDERED: CYM60 PO (15:56)
[2017-02-09] MEDS ORDERED: MRLP527 PO (15:56)
[2017-02-09] MEDS ORDERED: RANI150T2 PO (15:56)
[2017-02-09] MEDS ORDERED: SUCR1TAB PO (15:56)
[2017-02-09] MEDS ORDERED: SNG10 PO (15:59)
[2017-02-09] MEDS ORDERED: ADVIN50/60 INH (16:10)
[2017-02-09] MEDS ORDERED: GLC500 PO (16:26)
[2017-02-09] MEDS ORDERED: BUSP5TAB59 PO (16:26)
[2017-02-09] MEDS ORDERED: DIPH25TA32 PO (16:27)
[2017-02-09] MEDS ORDERED: MTR800 PO (16:31)
[2017-02-09] MEDS ORDERED: HYDR0.5C TOP (16:59)
[2017-02-09] MEDS ORDERED: TOLT2TAB9 PO (17:08)
[2017-02-09] MEDS ORDERED: VLT500 PO (19:28)
[2017-02-09] MEDS ORDERED: SENN-65 PO (20:07)
[2017-02-09] MEDS ORDERED: FLNIN/ NAE (20:57)
[2017-02-09] MEDS ORDERED: METO-157 PO (21:00)
[2017-02-09] MEDS ORDERED: ATOR-26 PO (21:11)
[2017-02-09] MEDS ORDERED: LSN25 PO (21:39)
[2017-02-09] MEDS ORDERED: DICY10CA12 PO (21:39)
[2017-02-09] MEDS ORDERED: FERR325T PO (21:44)
[2017-02-09] MEDS ORDERED: AMT100 PO (21:46)
[2017-02-09] MEDS ORDERED: INSDGIPEN SC (22:29)
[2017-02-09] MEDS ORDERED: IPRASOL4 INH (22:43)
[2017-04-04] MEDS ORDERED: ESTCR PV (18:18)
[2017-04-22] MEDS ORDERED: MIRA100T PO (21:50)
[2017-06-06] MEDS ORDERED: OXYB5TAB74 PO (14:15)
== END 2016-12-24 18:23 | disposition home or self-care (01) ==
LOC: C.EDB 15:31 → C.EDA 18:23
DX: R51 Headache (principal); K29.70 Gastritis, unspecified, without bleeding; J45.909 Unspecified asthma, uncomplicated; E11.9 Type 2 diabetes mellitus without complications; I10 Essential (primary) hypertension; K21.9 Gastro-esophageal reflux disease without esophagitis; Z98.51 Tubal ligation status; Z87.891 Personal history of nicotine dependence; Z79.82 Long term (current) use of aspirin; Z79.4 Long term (current) use of insulin; Z88.1 Allergy status to other antibiotic agents; Z88.2 Allergy status to sulfonamides; Z91.040 Latex allergy status; Z83.3 Family history of diabetes mellitus; Z80.9 Family history of malignant neoplasm, unspecified; Z82.49 Family history of ischemic heart disease and other diseases of the circulatory system

== ENCOUNTER 2017-01-01 16:13 | Emergency (ER) | payer OTHER ==
[~2017-01-01] VITALS: Ht 177.8 cm; Wt 96.4 kg
[~2017-01-01 16:13] MED LIST changes: -DIPH25CA37 PO; -GLC/500 PO; +LPT40 PO; -OXYB15TA PO; +PANT40TA PO
[2017-01-01 16:15] VITALS: TEMP 37; Ht 177.8 cm; Wt 96.4 kg
[2017-01-01] MEDS ORDERED: TROS20TA3 PO (16:26)
[2017-01-01] MEDS ORDERED: SODIUM CHLORIDE 0.9% 1000ML 1,000 ML IV STA (16:28)
[2017-01-01] MEDS ORDERED: PROMETHAZINE HCL INJ 25 MG/ML 1 ML VIAL IM STA (16:29)
[2017-01-01] MEDS ORDERED: MoRPHine SULFATE 10 MG/ML CARP/VIAL IM STA (16:29)
[2017-01-01 16:54] LABS: BASO % 0.2 %; BASO ABS # 0.02 K/uL (0-0.2); COMPLETE YES; EOS % 3.3 %; HEMATOCRIT 37.1 % (37-47); IG% 0.2 %; LYMPH % 42.6 %; LYMPH ABS # 3.75 K/uL (1.2-3.4); MEAN CELL VOLUME 83.2 fL (80-100); MEAN CORPUSCULAR HEMOGLOBIN 28.7 pg (25-34); MEAN CORPUSCULAR HGB CONC 34.5 g/dl (32-36); MEAN PLATELET VOLUME 8.9 fL (7.4-10.4); NEUT % 46.7 %; PLATELET COUNT 353 K/uL (130-400); RED BLOOD COUNT 4.46 M/uL (4.2-5.4)
[2017-01-01] MEDS ORDERED: PANT40TA PO (17:08)
[2017-01-01 17:17] LABS: URINE APPEARANCE CLEAR (CLEAR); URINE BILIRUBIN NEG (NEG); URINE COLOR YELLOW; URINE EPITHELIAL CELL AUTO >30 /lpf (0-5); URINE NITRITE NEG (NEG); URINE PH 6.5 (4.5-7.5); URINE SPECIFIC GRAVITY 1.008 (1.000-1.030); UROBILINOGEN NEG (NEG); ZZUR CULT IF INDIC CLEAN CATCH YES
[2017-01-01 17:19] LABS: ALT/SGPT 42 U/L (12-78); AST/SGOT 15 U/L (15-37); BLOOD UREA NITROGEN 12 mg/dl (7-18); BUN/CREATININE RATIO 13.7 (10-20); CALCIUM 8.5 mg/dl (8.5-10.1); CARBON DIOXIDE 26 mmol/L (21-32); CHLORIDE 104 mmol/L (98-107); CREATININE 0.86 mg/dl (0.60-1.20); GLUCOSE 190 mg/dl (70-99); POTASSIUM 3.5 mmol/L (3.5-5.1); SODIUM 139 mmol/L (136-145)
[2017-01-01 17:20] LABS: MANUAL MICROSCOPIC REQUIRED? NO; REVIEW REQ? YES
[2017-01-01 17:22] LABS: ALKALINE PHOSPHATASE 123 U/L (45-117); C-REACTIVE PROTEIN 0.51 mg/dl (0-0.29)
--- NOTE | 2017-01-01 17:27 | DIAGNOSTIC IMAGING REPORT ---
PA CHEST WITH ABDOMINAL SERIES CLINICAL HISTORY: Generalized abdominal pain. Nausea. FINDINGS: A PA chest radiograph is compared to study dated 12/15/2016. The examination is degraded by apical lordotic positioning. The cardiomediastinal silhouette is unremarkable. There are low lung volumes with mild chronic elevation of the right hemidiaphragm an right basilar atelectasis. The lungs and pleural spaces are otherwise clear. No pneumothorax is seen. The skeletal structures are osteopenic. The bony thorax is grossly intact. Supine and erect abdominal radiographs are correlated with abdominal CT dated 11/21/2016. There is a nonobstructed abdominal bowel gas pattern. Mild to moderate colonic fecal retention is observed. No intraperitoneal free air is seen. There is no radiographic evidence of nephrolithiasis. Numerous calcified phleboliths are present in the pelvis. The lumbosacral spine and bony pelvis appear intact. IMPRESSION: 1. Low lung volumes with no active disease in the chest. 2. Nonobstructed abdominal bowel gas pattern noting mild to moderate colonic fecal retention. Electronically signed by: Alfonso Reid M.D. 01/01/2017 5:26 PM Dictated Date/Time: 01/01/2017 5:24 PM
[2017-01-01 18:51] VITALS: BP 114/69; PULSE 79; O2SAT 97
[2017-01-01] MEDS ORDERED: NXM/40 PO (19:28)
[2017-01-01] MEDS ORDERED: HYDR1CAP85 PO (19:34)
--- NOTE | 2017-01-01 21:09 | EMERGENCY ROOM VISIT NOTE ---
History Report prepared by Tamera: Sena Schuster Under the Supervision of: Dr. Александр Manzanares D.O. First contact with patient: 16:18 Chief Complaint: ABDOMINAL PAIN Stated Complaint: STOMACH PAIN, MIRGRAINE History of Present Illness The patient is a 56 year old female who presents to the Emergency Room with complaints of constant left sided abdominal pain beginning last night. The patient states that she always has pain in her mid abdomen but today it is slightly different and is on the left side as well. She notes that she has had a hysterectomy. The patient complains of a migraine that is similar to her usual migraines. She reports that the migraine came on gradually and gradually worsened. She notes that it is in the front of her head and is stabbing like her usual migraines. She complains of nausea and neck pain. The patient denies any vomiting, diarrhea, change in vision, weakness, and numbness. She notes that her last bowel movement was this morning. She notes that she has not been able to eat today due to the nausea. Source of History: patient Onset: last night Position: head, abdomen Timing: constant Associated Symptoms: + nausea, + neck pain, No diarrhea, No numbness, No vomiting, No weakness Note: The patient denies any change in vision. Review of Systems See HPI for pertinent positives & negatives. A total of 10 systems reviewed and were otherwise negative. Past Medical & Surgical Medical Problems: (1) Asthma (2) Cervicalgia (3) Diabetes mellitus type 2 (4) Diabetic gastroparesis (5) Diverticulosis Colon (W/O Ment Of Hemorrhage) (6) Diverticulosis Sml Intestine (W/O Ment Of Hemorg) (7) Essential hypertension (8) Gastroesophageal reflux disease (9) Irritable Bowel Syndrome (10) Migraine Unspecified W/O Intractable Migraine (11) Pure Hypercholesterolem (12) Tubal Ligation Status Surgical Problems: (1) H/O: hysterectomy (2) History of tonsillectomy and adenoidectomy (3) History of tubal ligation Social History Problems: (1) Herpes simplex Family History Diabetes mellitus FH: cancer FHx: heart disease Hypertension Social History Smoking Status: Former Smoker Alcohol Use: none Drug Use: none Marital Status: in relationship Housing Status: lives with significant other Occupation Status: disabled Current/Historical Medications Scheduled Amitriptyline HCl (Amitriptyline HCl), 100 MG PO HS Aspirin (Aspirin), 81 MG PO DAILY Atorvastatin (Atorvastatin Calcium), 40 MG PO HS Buspirone Hcl (Buspirone Hcl), 5 MG PO BID Dicyclomine Hcl (Dicyclomine Hcl), 10 MG PO QID Duloxetine HCl (Duloxetine HCl), 60 MG PO HS Esomeprazole Magnesium (Nexium), 40 MG PO DAILY Ferrous Sulfate (Ferrous Sulfate), 325 MG PO TIDM Hydroxyzine Pamoate (Vistaril), 25 MG PO BID Insulin Glargine (Lantus Solostar), 5 UNITS SC HS Lisinopril (Lisinopril), 2.5 MG PO DAILY Melatonin (Melatonin), 10 MG PO HS Metformin HCl (Metformin HCl), 500 MG PO BID Metoclopramide Hcl (Reglan), 10 MG PO ACHS Montelukast Sod (Montelukast Sodium), 10 MG PO QAM Multivitamin (Multivitamin), 1 TAB PO DAILY Pantoprazole (Protonix), 40 MG PO DAILY Polyethylene (Polyethylene Glycol 3350), 17 GM PO QAM Potassium Gluconate (Potassium Gluconate), 1,190 MG PO DAILY Ranitidine HCl (Ranitidine HCl), 150 MG PO HS Senna/Docusate Sod (Senokot S), 1 TAB PO QAM Sucralfate (Sucralfate), 1 GM PO ACHS Tolterodine Tartrate (Tolterodine Tartrate), 2 MG PO BID Trospium Chloride (Trospium Chloride), 20 MG PO BID Scheduled PRN Acetaminophen (Tylenol), 1,000 MG PO UD PRN for Pain or Fever Diphenhydramine Hcl (Diphenhydramine Hcl), 25-50 MG PO Q4-6HRS PRN for Itching Fluticasone Prop/Salmeterol (Advair Diskus 500/50 60 Dose), 1 PUFF INH BID PRN for Shortness of Breath Fluticasone Propionate (Fluticasone Propionate), 2 SPRAYS JG DAILY PRN for Allergy Symptoms Hydrocortisone (Topical) (Hydrocortisone), 1 APPLN TOP UD PRN for Itching Ibuprofen (Ibuprofen), 800 MG PO Q8 PRN for Pain Ipratropium-Albuterol (Duoneb), 1 TREATMENT INH BID PRN for SOB/Wheezing Naproxen (Aleve), 440 MG PO Q12 PRN for Pain Promethazine HCl (Promethazine HCl), 25 MG PO Q6H PRN for Nausea Valacyclovir HCl (Valacyclovir HCl), 500 MG PO TID PRN for Outbreaks Allergies Coded Allergies: Hydromorphone (Verified Allergy, Severe, itching, 11/19/16) Ondansetron (Verified Allergy, Intermediate, hives; RASH, 11/19/16) Sulfa Antibiotics (Verified Allergy, Intermediate, rash, 11/19/16) Aminoglycosides (Verified Allergy, Unknown, >, 11/19/16) Bacitracin (Verified Allergy, Unknown, >, 11/19/16) Ceftriaxone (Verified Allergy, Unknown, Rash, hives and itchiness., ) Cephalexin (Unverified Allergy, Unknown, hives, 11/19/16) Latex1 -Allergic Contact Dermititis (Verified Allergy, Unknown, 11/19/16) Neomycin (Verified Allergy, Unknown, >, 11/19/16) Polymyxin B (Verified Allergy, Unknown, >, 11/19/16) Sulfamethoxazole w/Trimethoprim (Verified Allergy, Unknown, Unknown, ) Physical Exam Vital Signs Date Time Temp Pulse Resp B/P Pulse Ox O2 Delivery O2 Flow Rate FiO2 01/01/17 18:51 79 18 114/69 97 Room Air 01/01/17 16:15 37.0 104 20 129/84 96 Room Air Physical Exam GENERAL: sitting up in bed, no distress, non-toxic EYE EXAM: normal conjunctiva, PERRL and EOM's intact OROPHARYNX: no exudate, no erythema, lips, buccal mucosa, and tongue normal and mucous membranes are moist NECK: supple, no nuchal rigidity, no adenopathy, non-tender LUNGS: Clear to auscultation. Normal chest wall mechanics HEART: no murmurs, S1 normal and S2 normal ABDOMEN: abdomen soft, non-tender, normo-active bowel sounds, no masses, no rebound or guarding. BACK: Back is symmetrical on inspection and there is no deformity, no midline tenderness, no CVA tenderness. SKIN: no rashes and no bruising UPPER EXTREMITIES: upper extremities are grossly normal. LOWER EXTREMITIES: No pitting edema. NEURO EXAM: Normal sensorium, cranial nerves II-XII intact, normal speech, no weakness of arms, no weakness of legs. No drift. Finger to nose intact. Gross sensation intact. Medical Decision & Procedures ER Provider Diagnostic Interpretation: Xray results per the radiologist and my interpretation. PA CHEST WITH ABDOMINAL SERIES FINDINGS: A PA chest radiograph is compared to study dated 12/15/2016. The examination is degraded by apical lordotic positioning. The cardiomediastinal silhouette is unremarkable. There are low lung volumes with mild chronic elevation of the right hemidiaphragm an right basilar atelectasis. The lungs and pleural spaces are otherwise clear. No pneumothorax is seen. The skeletal structures are osteopenic. The bony thorax is grossly intact. Supine and erect abdominal radiographs are correlated with abdominal CT dated 11/21/2016. There is a nonobstructed abdominal bowel gas pattern. Mild to moderate colonic fecal retention is observed. No intraperitoneal free air is seen. There is no radiographic evidence of nephrolithiasis. Numerous calcified phleboliths are present in the pelvis. The lumbosacral spine and bony pelvis appear intact. IMPRESSION: 1. Low lung volumes with no active disease in the chest. 2. Nonobstructed abdominal bowel gas pattern noting mild to moderate colonic fecal retention. Electronically signed by: Alfonso Reid M.D. 01/01/2017 5:26 PM Dictated Date/Time: 01/01/2017 5:24 PM Laboratory Results 01/01/17 16:35 Red Blood Count 4.46, Mean Corpuscular Volume 83.2, Mean Corpuscular Hemoglobin 28.7, Mean Corpuscular Hemoglobin Concent 34.5, Mean Platelet Volume 8.9, Neutrophils (%) (Auto) 46.7, Lymphocytes (%) (Auto) 42.6, Monocytes (%) (Auto) 7.0, Eosinophils (%) (Auto) 3.3, Basophils (%) (Auto) 0.2, Neutrophils # (Auto) 4.10, Lymphocytes # (Auto) 3.75, Monocytes # (Auto) 0.62, Eosinophils # (Auto) 0.29, Basophils # (Auto) 0.02 01/01/17 16:35 Test 01/01/17 16:35 01/01/17 16:50 White Blood Count 8.80 K/uL (4.8-10.8) Red Blood Count 4.46 M/uL (4.2-5.4) Hemoglobin 12.8 g/dL (12.0-16.0) Hematocrit 37.1 % (37-47) Mean Corpuscular Volume 83.2 fL (80-100) Mean Corpuscular Hemoglobin 28.7 pg (25-34) Mean Corpuscular Hemoglobin Concent 34.5 g/dl (32-36) Platelet Count 353 K/uL (130-400) Mean Platelet Volume 8.9 fL (7.4-10.4) Neutrophils (%) (Auto) 46.7 % Lymphocytes (%) (Auto) 42.6 % Monocytes (%) (Auto) 7.0 % Eosinophils (%) (Auto) 3.3 % Basophils (%) (Auto) 0.2 % Neutrophils # (Auto) 4.10 K/uL (1.4-6.5) Lymphocytes # (Auto) 3.75 K/uL (1.2-3.4) Monocytes # (Auto) 0.62 K/uL (0.11-0.59) Eosinophils # (Auto) 0.29 K/uL (0-0.5) Basophils # (Auto) 0.02 K/uL (0-0.2) RDW Standard Deviation 44.5 fL (36.4-46.3) RDW Coefficient of Variation 14.5 % (11.5-14.5) Immature Granulocyte % (Auto) 0.2 % Immature Granulocyte # (Auto) 0.02 K/uL (0.00-0.02) Erythrocyte Sedimentation Rate 6 mm/hr (0-21) Anion Gap 9.0 mmol/L (3-11) Est Creatinine Clear Calc Drug Dose 89.7 ml/min Estimated GFR () 86.3 Estimated GFR (Non- 74.5 BUN/Creatinine Ratio 13.7 (10-20) Calcium Level 8.5 mg/dl (8.5-10.1) Total Bilirubin 0.2 mg/dl (0.2-1) Direct Bilirubin < 0.1 mg/dl (0-0.2) Aspartate Amino Transf (AST/SGOT) 15 U/L (15-37) Alanine Aminotransferase (ALT/SGPT) 42 U/L (12-78) Alkaline Phosphatase 123 U/L (45-117) C-Reactive Protein 0.51 mg/dl (0-0.29) Total Protein 6.4 gm/dl (6.4-8.2) Albumin 3.3 gm/dl (3.4-5.0) Lipase 175 U/L (73-393) Urine Color YELLOW Urine Appearance CLEAR (CLEAR) Urine pH 6.5 (4.5-7.5) Urine Specific [place] 1.008 (1.000-1.030) Urine Protein NEG (NEG) Urine Glucose (UA) NEG (NEG) Urine Ketones NEG (NEG) Urine Occult Blood NEG (NEG) Urine Nitrite NEG (NEG) Urine Bilirubin NEG (NEG) Urine Urobilinogen NEG (NEG) Urine Leukocyte Esterase LARGE (NEG) Urine WBC (Auto) >30 /hpf (0-5) Urine RBC (Auto) 0-4 /hpf (0-4) Urine Hyaline Casts (Auto) 1-5 /lpf (0-5) Urine Epithelial Cells (Auto) >30 /lpf (0-5) Urine Bacteria (Auto) NEG (NEG) Urine Renal Epithelial Cells /lpf (0-5) Urine Yeast (Auto) PRESENT (NONE PRSENT) Urine Test NEG (NEG) Laboratory results per my review. Medications Administered Medications (Trade) Dose Ordered Sig/Antony Route Start Time Stop Time Status Last Admin Dose Admin Sodium Chloride (Nss 1000ml) 1,000 ml @ 999 mls/hr Q1H1M STAT IV 01/01/17 16:28 01/01/17 17:28 DC 01/01/17 16:42 999 MLS/HR Morphine Sulfate (MoRPHine SULFATE INJ) 10 mg NOW STAT IM 01/01/17 16:29 01/01/17 16:30 DC 01/01/17 16:41 10 MG Promethazine HCl (Phenergan Inj) 25 mg NOW STAT IM 01/01/17 16:29 01/01/17 16:30 DC 01/01/17 16:40 25 MG ED Course ED COURSE: Vital signs were reviewed and showed tachycardia The patients medical record was reviewed The above diagnostic studies were performed and reviewed. ED treatments and interventions as stated above. 1622: The patient was evaluated in room A11. A complete history and physical examination was performed. 1628: Sodium Chloride 1000 ml @ 999 mls/hr IV, Phenergan Inj 25mg Im, Morphine Sulfate Inj 10mg IM. 1850: I reevaluated the patient. She is feeling better. 1900: Upon reevaluation, the patient is hemodynamically stable.I discussed my findings with the patient and she understands and agrees with the treatment plan. Based on the patients age, coexisting illnesses, exam and lab findings the decision to treat as an outpatient was made. The patient remained stable while under my care. The patient appeared well at the time of discharge. Medical Decision Differential Diagnosis includes but is not limited to headache, tension headache , cluster headache, migraine, subarachnoid hemorrhage, meningitis, mass, central venous thrombus, concussion, trauma and epidural/subdural hemorrhage, gastritis, peptic ulcer disease, GERD, gallbladder disease, pancreatitis, small bowel obstruction, acute coronary syndrome, pericarditis, ischemic bowel, irritable bowel disease, irritable bowel syndrome, appendicitis, diverticulitis , malignancy, hernia, urinary tract infection, torsion, /ectopic , perforation, trauma, infectious. Patient is a 56-year-old female who presents the ER for headache. She has this came on gradually and feels exactly like her previous migraines. It's unchanged in anyway from her typical migraine. No signs of meningitis or encephalitis on exam. Nothing to suggest a bleed. No trauma. Chest has no abdominal pain which is fairly chronic. She notes that this is unchanged in anyway from her typical back pain with exception of slightly to the left. Her abdominal is an was completely benign. No significant leukocytosis. Vitals are normal. Sed and CRP are normal. Obstructive series was unremarkable. She was updated regards these findings. She felt slightly better following IM morphine and Phenergan. She was discharged follow-up with her primary care doctor. Discussed with Pt concerning signs and symptoms to watch out for. Pt was instructed to follow up with their PCP and discussed with the patient their option to return to the ED at anytime for persistent or worsening symptoms. The appropriate anticipatory guidance and out-patient management, including indications for return to the emergency department, were explained at length to the patient and understood. Impression Primary Impression: Cephalgia Additional Impression: Abdominal pain Scribe Attestation The scribe's documentation has been prepared under my direction and personally reviewed by me in its entirety. I confirm that the note above accurately reflects all work, treatment, procedures, and medical decision making performed by me. Departure Information Dispostion Home / Self-Care Referrals Cipriano Peña M.D. (MEDICAL) (PCP) Forms Call Back Authorization, HOME CARE DOCUMENTATION FORM, IMPORTANT VISIT INFORMATION Patient Instructions Abdominal Pain, Headache Pain, My Decision Curve Additional Instructions Please follow up with your primary care doctor with in the next 24 hours. Any worsening of your symptoms, please return to the ED immediately. This includes fevers greater than 100.4, confusion, worsening headaches, persistent nausea vomiting, or any other concerning signs as your standpoint. Problem Qualifiers Primary Impression: Cephalgia Headache type: unspecified Headache chronicity pattern: episodic headache Intractability: not intractable Qualified Codes: R51 - Headache Additional Impression: Abdominal pain Abdominal location: unspecified location Qualified Codes: R10.9 - Unspecified abdominal pain
[2017-01-05] MEDS ORDERED: ATOR-26 PO (13:27)
[2017-02-09] MEDS ORDERED: NAPR1TAB9 PO (10:30)
[2017-02-09] MEDS ORDERED: PROM25TA16 PO (14:59)
[2017-02-09] MEDS ORDERED: POTA1TAB PO (15:03)
[2017-02-09] MEDS ORDERED: MELA1CAP9 PO (15:09)
[2017-02-09] MEDS ORDERED: ASPI1TAB83 PO (15:29)
[2017-02-09] MEDS ORDERED: MULT-506 PO (15:53)
[2017-02-09] MEDS ORDERED: MRLP527 PO (15:56)
[2017-02-09] MEDS ORDERED: RANI150T2 PO (15:56)
[2017-02-09] MEDS ORDERED: SUCR1TAB PO (15:56)
[2017-02-09] MEDS ORDERED: CYM60 PO (15:56)
[2017-02-09] MEDS ORDERED: SNG10 PO (15:59)
[2017-02-09] MEDS ORDERED: ADVIN50/60 INH (16:10)
[2017-02-09] MEDS ORDERED: BUSP5TAB59 PO (16:26)
[2017-02-09] MEDS ORDERED: GLC500 PO (16:26)
[2017-02-09] MEDS ORDERED: DIPH25TA32 PO (16:27)
[2017-02-09] MEDS ORDERED: MTR800 PO (16:31)
[2017-02-09] MEDS ORDERED: HYDR0.5C TOP (16:59)
[2017-02-09] MEDS ORDERED: TOLT2TAB9 PO (17:08)
[2017-02-09] MEDS ORDERED: VLT500 PO (19:28)
[2017-02-09] MEDS ORDERED: SENN-65 PO (20:07)
[2017-02-09] MEDS ORDERED: FLNIN/ NAE (20:57)
[2017-02-09] MEDS ORDERED: METO-157 PO (21:00)
[2017-02-09] MEDS ORDERED: ATOR-26 PO (21:11)
[2017-02-09] MEDS ORDERED: DICY10CA12 PO (21:39)
[2017-02-09] MEDS ORDERED: LSN25 PO (21:39)
[2017-02-09] MEDS ORDERED: FERR325T PO (21:44)
[2017-02-09] MEDS ORDERED: AMT100 PO (21:46)
[2017-02-09] MEDS ORDERED: INSDGIPEN SC (22:29)
[2017-02-09] MEDS ORDERED: IPRASOL4 INH (22:43)
[2017-04-04] MEDS ORDERED: ESTCR PV (18:18)
[2017-04-22] MEDS ORDERED: MIRA100T PO (21:50)
[2017-06-06] MEDS ORDERED: OXYB5TAB74 PO (14:15)
== END 2017-01-01 19:10 | disposition home or self-care (01) ==
LOC: C.EDB 16:14 → C.EDA 19:10
DX: R51 Headache (principal); R10.9 Unspecified abdominal pain; M54.2 Cervicalgia; R11.0 Nausea; J45.909 Unspecified asthma, uncomplicated; E11.9 Type 2 diabetes mellitus without complications; I10 Essential (primary) hypertension; K21.9 Gastro-esophageal reflux disease without esophagitis; E78.00 Pure hypercholesterolemia, unspecified; Z79.4 Long term (current) use of insulin; Z79.82 Long term (current) use of aspirin; Z79.899 Other long term (current) drug therapy

== ENCOUNTER 2017-01-04 13:35 | Observation (INO) | payer OTHER ==
[~2017-01-04] VITALS: Ht 157.5 cm; Wt 96.5 kg
[~2017-01-04 13:35] MED LIST changes: +HYDR1CAP85 PO; +NXM/40 PO; +TROS20TA3 PO
--- NOTE | 2017-01-04 14:04 | EMERGENCY ROOM VISIT NOTE ---
History First contact with patient: 13:46 Chief Complaint: CHEST PAIN Stated Complaint: CHEST PAINS AND PAINS DOWN LEFT ARM Nursing Triage Summary: Pt c/o left chest pain going down left arm since noon. Denies SOB. Associates Nausea. Stabbing, constant. History of Present Illness The patient is a 56 year old female who presents to the Emergency Room with complaints of left-sided chest pain which began approximately 2 hours ago. The patient reports that she was laying on her couch when she develops chest pain with radiation to the left shoulder, back and arm. She does have a history of chest wall pain but states that it does not typically radiate into the arm. She states that the pain is worse with movement of the arm or palpation of the chest or arm. She had a negative stress test in January 2016. She denies any cardiac history, but does report a family history of cardiac disease in her mother and grandparents. She is a former smoker and has a history of diabetes. She denies any associated shortness of breath, nausea/vomiting, syncope, palpitations, lightheadedness, fevers/chills, cough, or abdominal pain. Review of Systems A complete 10-point Review of Systems was discussed with the patient, with pertinent positives and negatives listed in the History of Present Illness. All remaining Review of Systems questions can be considered negative unless otherwise specified. Past Medical/Surgical History Medical Problems: (1) Cervicalgia (2) Depression with anxiety (3) DM type 2 (diabetes mellitus, type 2) (4) Gastroparesis (5) GERD (gastroesophageal reflux disease) (6) IBS (irritable bowel syndrome) (7) Moderate persistent asthma (8) Obesity Surgical Problems: (1) H/O dilation and curettage (2) H/O: hysterectomy (3) History of tonsillectomy and adenoidectomy (4) History of tubal ligation Social History Problems: (1) Herpes simplex Family History Diabetes mellitus FH: cancer FHx: heart disease Hypertension Social History Smoking Status: Former Smoker Alcohol Use: none Drug Use: none Marital Status: in relationship Housing Status: lives with significant other Occupation Status: disabled Current/Historical Medications Scheduled Amitriptyline HCl (Amitriptyline HCl), 100 MG PO HS Aspirin (Aspirin), 81 MG PO DAILY Atorvastatin (Lipitor), 1 TAB PO DAILY Buspirone Hcl (Buspirone Hcl), 5 MG PO BID Cholecalciferol (Vitamin D3), 1 TAB PO WK Dicyclomine Hcl (Dicyclomine Hcl), 10 MG PO QID Duloxetine HCl (Duloxetine HCl), 60 MG PO HS Esomeprazole Magnesium (Nexium), 40 MG PO DAILY Estrogens, Conjugated (Premarin), 1 GM VAGRING 2XWK Ferrous Sulfate (Ferrous Sulfate), 325 MG PO TIDM Hydroxyzine Hcl (Atarax), 50 MG PO DAILY Insulin Glargine (Lantus Solostar), 5 UNITS SC HS Lisinopril (Lisinopril), 2.5 MG PO DAILY Melatonin (Melatonin), 10 MG PO HS Metformin HCl (Metformin HCl), 500 MG PO BID Metoclopramide Hcl (Reglan), 10 MG PO ACHS Montelukast Sod (Montelukast Sodium), 10 MG PO QAM Multivitamin (Multivitamin), 1 TAB PO DAILY Polyethylene (Polyethylene Glycol 3350), 17 GM PO QAM Potassium Gluconate (Potassium Gluconate), 1,190 MG PO DAILY Ranitidine HCl (Ranitidine HCl), 150 MG PO HS Senna/Docusate Sod (Senokot S), 1 TAB PO QAM Sucralfate (Sucralfate), 1 GM PO ACHS Tolterodine Tartrate (Tolterodine Tartrate), 2 MG PO BID Scheduled PRN Acetaminophen (Tylenol), 1,000 MG PO UD PRN for Pain or Fever Diphenhydramine Hcl (Diphenhydramine Hcl), 25-50 MG PO Q4-6HRS PRN for Itching Fluticasone Prop/Salmeterol (Advair Diskus 500/50 60 Dose), 1 PUFF INH BID PRN for Shortness of Breath Fluticasone Propionate (Fluticasone Propionate), 2 SPRAYS JG DAILY PRN for Allergy Symptoms Hydrocortisone (Topical) (Hydrocortisone), 1 APPLN TOP UD PRN for Itching Ibuprofen (Ibuprofen), 800 MG PO Q8 PRN for Pain Ipratropium-Albuterol (Duoneb), 1 TREATMENT INH BID PRN for SOB/Wheezing Naproxen (Aleve), 440 MG PO Q12 PRN for Pain Promethazine HCl (Promethazine HCl), 25 MG PO Q6H PRN for Nausea Valacyclovir HCl (Valacyclovir HCl), 500 MG PO TID PRN for Outbreaks Allergies Coded Allergies: Hydromorphone (Verified Allergy, Severe, itching, 01/04/17) Ondansetron (Verified Allergy, Intermediate, hives; RASH, 01/04/17) Sulfa Antibiotics (Verified Allergy, Intermediate, rash, 01/04/17) Aminoglycosides (Verified Allergy, Unknown, >, 01/04/17) Bacitracin (Verified Allergy, Unknown, >, 01/04/17) Ceftriaxone (Verified Allergy, Unknown, Rash, hives and itchiness., 01/04/17 ) Cephalexin (Unverified Allergy, Unknown, hives, 01/04/17) Latex1 -Allergic Contact Dermititis (Verified Allergy, Unknown, 01/04/17) Neomycin (Verified Allergy, Unknown, >, 01/04/17) Polymyxin B (Verified Allergy, Unknown, >, 01/04/17) Sulfamethoxazole w/Trimethoprim (Verified Allergy, Unknown, Unknown, ) Physical Exam Vital Signs Date Time Temp Pulse Resp B/P Pulse Ox O2 Delivery O2 Flow Rate FiO2 01/04/17 14:33 85 18 124/96 96 Room Air 01/04/17 13:40 97 Room Air 01/04/17 13:37 36.7 81 20 128/83 94 Room Air Physical Exam VITALS: Vitals are noted on the nurse's note and reviewed by myself. Vital signs stable. GENERAL: This is a 56-year-old female, in no acute distress, nondiaphoretic, well-developed well-nourished. SKIN: Capillary reflex less than 2 seconds. HEENT: Normocephalic. PERRLA. EOMI. Nares patent. Mucous membranes moist. Neck is supple without nuchal rigidity. HEART: Regular rate and rhythm without murmurs gallops or rubs. LUNGS: Clear to auscultation bilaterally without wheezes, rales or rhonchi. No retractions or accessory muscle use. CHEST: There is reproducible pain with palpation of the left anterior chest wall and left anterior shoulder. ABDOMEN: Positive bowel sounds x 4. Normal tympanic percussion. Soft, nontender, without masses or organomegaly. Cesar sign negative. No guarding or rebound tenderness. MUSCULOSKELETAL: Full range of motion of bilateral upper extremities throughout. Strength 5/5. NEURO: Patient was alert and oriented to person place and time. Normal sensation to light and sharp touch. Medical Decision & Procedures ER Provider Diagnostic Interpretation: SINGLE VIEW CHEST CLINICAL HISTORY: Left-sided chest pain. FINDINGS: An AP, portable, upright chest radiograph is compared to study dated 01/01/2017 The examination is degraded by portable technique, large body habitus, and patient rotation. The cardiomediastinal silhouette is unremarkable. There is chronic elevation of the right hemidiaphragm and mild bibasilar atelectasis. No airspace consolidation, large pleural effusion, or pneumothorax is seen. The skeletal structures are osteopenic. The bony thorax is grossly intact. IMPRESSION: No active disease in the chest. Laboratory Results Test 01/04/17 14:05 01/04/17 14:17 Immature Granulocyte % (Auto) 0.1 % White Blood Count 10.28 K/uL (4.8-10.8) Red Blood Count 4.51 M/uL (4.2-5.4) Hemoglobin 12.9 g/dL (12.0-16.0) Hematocrit 37.6 % (37-47) Mean Corpuscular Volume 83.4 fL (80-100) Mean Corpuscular Hemoglobin 28.6 pg (25-34) Mean Corpuscular Hemoglobin Concent 34.3 g/dl (32-36) Platelet Count 373 K/uL (130-400) Mean Platelet Volume 9.1 fL (7.4-10.4) Neutrophils (%) (Auto) 50.6 % Lymphocytes (%) (Auto) 37.3 % Monocytes (%) (Auto) 8.9 % Eosinophils (%) (Auto) 2.7 % Basophils (%) (Auto) 0.4 % Neutrophils # (Auto) 5.20 K/uL (1.4-6.5) Lymphocytes # (Auto) 3.83 K/uL (1.2-3.4) Monocytes # (Auto) 0.92 K/uL (0.11-0.59) Eosinophils # (Auto) 0.28 K/uL (0-0.5) Basophils # (Auto) 0.04 K/uL (0-0.2) Immature Granulocyte # (Auto) 0.01 K/uL (0.00-0.02) Prothrombin Time 10.2 SECONDS (9.0-12.0) Prothromb Time International Ratio 1.0 (0.9-1.1) Total Bilirubin 0.2 mg/dl (0.2-1) Aspartate Amino Transf (AST/SGOT) 14 U/L (15-37) Alanine Aminotransferase (ALT/SGPT) 42 U/L (12-78) Alkaline Phosphatase 142 U/L (45-117) Total Protein 7.0 gm/dl (6.4-8.2) Albumin 3.5 gm/dl (3.4-5.0) Globulin 3.5 gm/dl (2.5-4.0) Albumin/Globulin Ratio 1.0 (0.9-2) Bedside Troponin I 0.000 ng/ml (0-0.045) Medications Administered Medications (Trade) Dose Ordered Sig/Antony Route Start Time Stop Time Status Last Admin Dose Admin Aspirin (Aspirin Chew) 324 mg NOW STAT PO 01/04/17 15:32 01/04/17 15:33 DC 01/04/17 15:52 324 MG Acetaminophen (Tylenol Tab) 650 mg Q4H PRN PO 01/04/17 15:30 01/05/17 15:01 DC 01/04/17 18:33 650 MG ECG Rate (beats per minute): 87 Rhythm: normal sinus Findings: T-wave inversion (Anterior), no acute ischemic change, no ectopy Change: no significant change Medical Decision Differential diagnosis includes acute coronary syndrome, pulmonary embolism, pneumothorax, pericarditis, myocarditis, endocarditis, anxiety, musculoskeletal pain, GERD, costochondritis, among others. The patient was evaluated as above. Labs were drawn and IV access was obtained. Imaging studies were performed and read by radiology as above. The patient was medicated with 325 mg aspirin. The patient was reassessed multiple times during their stay in the emergency department and remained in stable condition. The patient is a 56-year-old female well-known to this emergency department who presents today complaining of left sided chest pain. Labs revealed no leukocytosis, anemia or concerning elective abnormalities. Troponin was not elevated. EKG did not show acute ischemia. Chest x-ray was unremarkable. I discussed options of care with the patient including admission for further testing versus discharge with close follow-up. The patient reported that she was very anxious about her symptoms, as they were different from the chest pain she has had previously. She would prefer to stay in the hospital for further testing. I spoke with the hospitalist, who agreed to evaluate the patient for admission. The patient was independently evaluated by Dr. Montes, ED attending physician, who agreed with my assessment and treatment plan. Impression Primary Impression: Precordial chest pain Departure Information Prescriptions Atorvastatin (Lipitor) 80 Mg Tab 1 TAB PO DAILY for 30 Days, #30 TAB 5 Refills Prov: Camille Gay, 01/05/17 Referrals Cipriano Peña M.D. (MEDICAL) (PCP) Patient Instructions My [facility]
[2017-01-04 14:24] LABS: BASO % 0.4 %; BASO ABS # 0.04 K/uL (0-0.2); COMPLETE YES; EOS % 2.7 %; HEMATOCRIT 37.6 % (37-47); IG% 0.1 %; LYMPH % 37.3 %; LYMPH ABS # 3.83 K/uL (1.2-3.4); MEAN CELL VOLUME 83.4 fL (80-100); MEAN CORPUSCULAR HEMOGLOBIN 28.6 pg (25-34); MEAN CORPUSCULAR HGB CONC 34.3 g/dl (32-36); MEAN PLATELET VOLUME 9.1 fL (7.4-10.4); MONO % 8.9 %; NEUT % 50.6 %; PLATELET COUNT 373 K/uL (130-400); RED BLOOD COUNT 4.51 M/uL (4.2-5.4); WHITE BLOOD COUNT 10.28 K/uL (4.8-10.8)
[2017-01-04 14:42] LABS: BUN/CREATININE RATIO 13.9 (10-20); CALCIUM 8.8 mg/dl (8.5-10.1); CREATININE 0.86 mg/dl (0.60-1.20); POTASSIUM 3.8 mmol/L (3.5-5.1)
--- NOTE | 2017-01-04 14:48 | DIAGNOSTIC IMAGING REPORT ---
SINGLE VIEW CHEST CLINICAL HISTORY: Left-sided chest pain. FINDINGS: An AP, portable, upright chest radiograph is compared to study dated 01/01/2017 The examination is degraded by portable technique, large body habitus, and patient rotation. The cardiomediastinal silhouette is unremarkable. There is chronic elevation of the right hemidiaphragm and mild bibasilar atelectasis. No airspace consolidation, large pleural effusion, or pneumothorax is seen. The skeletal structures are osteopenic. The bony thorax is grossly intact. IMPRESSION: No active disease in the chest. Electronically signed by: Alfonso Reid M.D. 01/04/2017 2:47 PM Dictated Date/Time: 01/04/2017 2:46 PM
[2017-01-04] MEDS ORDERED: KETOROLAC TROMETHAMINE 15 MG/ML VIAL IV STA (15:17)
[2017-01-04] MEDS ORDERED: DEXTROSE 50% 50 ML SYR IV PRN (15:30)
[2017-01-04] MEDS ORDERED: GLUCOSE 40% GEL 15 GM TUBE PO PRN (15:30)
[2017-01-04] MEDS ORDERED: ACETAMINOPHEN 325 MG TAB PO PRN (15:30)
[2017-01-04] MEDS ORDERED: POLYETHYLENE (MIRALAX) 17 GM PACK PO PRN (15:30)
[2017-01-04] MEDS ORDERED: GLUCAGON FOR INJ 1 MG VIAL SQ PRN (15:30)
[2017-01-04] MEDS ORDERED: NITROGLYCERIN 0.4 MG SL PER TAB CHARGE SL PRN (15:30)
[2017-01-04] MEDS ORDERED: GLUCOSE 10 TABS/TUBE PO PRN (15:30)
[2017-01-04] MEDS ORDERED: ASPIRIN 81 MG CHEW PO STA (15:32)
[2017-01-04] MEDS ORDERED: PHARMACY GLYCEMIC MGMT CONSULT SCH (15:53)
[2017-01-04 15:57] LABS: PROTHROMBIN TIME (PATIENT) 10.2 SECONDS (9.0-12.0)
--- NOTE | 2017-01-04 16:11 | Pharmacy Progress Note ---
Glycemic Control Intl Consult Date of Service Jan 04, 2017. Scope Glycemic Pharmacist consulted by Dr Simpson on 01/04/17 for glycemic control and to write orders per [facility] inpatient glycemic control protocol Objective Weight (Kilograms): 96.500 Accuchecks BSG (last 24hrs): Test 01/04/17 14:05 Random Glucose 114 mg/dl (70-99) Laboratory Data (last 24hrs) Test 01/04/17 14:05 Anion Gap 9.0 mmol/L BUN/Creatinine Ratio 13.9 Blood Urea Nitrogen 12 mg/dl Creatinine 0.86 mg/dl Potassium Level 3.8 mmol/L Sodium Level 140 mmol/L White Blood Count 10.28 K/uL Red Blood Count 4.51 M/uL Hemoglobin 12.9 g/dL Hematocrit 37.6 % Mean Corpuscular Volume 83.4 fL Mean Corpuscular Hemoglobin 28.6 pg Mean Corpuscular Hemoglobin Concent 34.3 g/dl Platelet Count 373 K/uL Mean Platelet Volume 9.1 fL Neutrophils (%) (Auto) 50.6 % Lymphocytes (%) (Auto) 37.3 % Monocytes (%) (Auto) 8.9 % Eosinophils (%) (Auto) 2.7 % Basophils (%) (Auto) 0.4 % Neutrophils # (Auto) 5.20 K/uL Lymphocytes # (Auto) 3.83 K/uL Monocytes # (Auto) 0.92 K/uL Eosinophils # (Auto) 0.28 K/uL Basophils # (Auto) 0.04 K/uL Recent Pertinent Medications Outpatient Anti-diabetic Regimen: * Lantus 5 units SQ q PM * Glucophage 500mg PO BID with meals * A1c = outdate from The patient is currently receiving: * Basal insulin: Lantus 9 units every 12 hours * Correctional Insulin: NovoLog Correction per scale ACHS Goal Range: Low 100 mg/dL - High 140 mg/dL Correction Factor: 45 mg/dL/unit * Prandial insulin: Per carb ratio of 1 unit per 15 grams CHO consumed * Oral Agents: held on admission Risk Factors for Insulin Resistance: * Diet: Assessment & Plan ASSESSMENT: * 56 y/o T2DM who uses Lantus and Glucophage as an outpatient with an unknown degree of glycemic control. * A1c outdated - order with AM labs * add to discharge instructions * BSG on admission WNL * hesitate to continue with weight based Lantus and NovoLog with presumed insulin sensitivity - Hold Lantus and follow tomorrow fasting BSG * NovoLog appropriate at this time * Metformin held on admission * ADA & AACE recommend a goal blood sugar range 140-180 mg/dl for the majority of critically ill & non-critically ill patients. However, more stringent targets may be selected in individual cases. Lower goal range chosen for non- elderly with history of well controlled T2DM. PLAN FOR INPATIENT GLYCEMIC CONTROL: * Lantus - hold at this time * follow fasting BSGs * NovoLog SQ AC and HS * Correction factor: 45mg/dL/unit * Carb ratio: 1 unit 15g of CHO consumed * Goal: 110-140mg/dL * Oral medications * hold on admission * A1c - on order * added to discharge instructions * Please note that the plan above was derived based on current level of insulin resistance and hospital stress. These recommendations are appropriate for inpatient admission only. Plan of care upon discharge will need to be reassessed to avoid potential outpatient hypo/hyperglycemia. Thank you.
--- NOTE | 2017-01-04 16:20 | EMERGENCY ROOM VISIT NOTE ---
ED Visit Note First contact with patient: 13:46 I have personally seen and evaluated the patient with the physician economic research assistant. I agree with the diagnostic/management decisions and have personally been involved in these decisions and agree with the diagnosis.
[2017-01-04] MEDS ORDERED: IV FLUIDS COMPLETED PRN (16:30)
[2017-01-04] MEDS ORDERED: HYDR-3126 PO (16:55)
[2017-01-04] MEDS ORDERED: PRMVC VAGRING (16:55)
[2017-01-04] MEDS ORDERED: CHOL1TAB63 PO (16:55)
[2017-01-04 17:34] VITALS: BP 111/74; PULSE 77; TEMP 36.7; O2SAT 99; Ht 157.5 cm; Wt 96.5 kg
--- NOTE | 2017-01-04 17:57 | History and Physical ---
History & Physical Date & Time of Service: Jan 04, 2017 at 17:04 Chief Complaint: Chest Pain Primary Care Physician: Cipriano Peña M.D. (MEDICAL) History of Present Illness 56 year old female who presents to the ER with chest pain. Patient reports she had just walked back from her neighbors and sat down on the couch. She reports she "didn't feel right". She has difficulty describing specific symptoms. She then laid down and went to sleep for a bit. When she woke up she reports severe left sided chest pain with radiation into the left arm. She describes the pain as a stabbing. She rates it at its worst #10/10. The chest pain resolved on its own about 3 hours later. She reports she still has some neck, left shoulder, and left arm pain. She reports associated nausea. She denies shortness of breath and diaphoresis. She reports chronic fatigue which is unchanged. She feels as though she is tolerating her daily activities at baseline. No orthopnea or lower extremity edema. She denies abdominal pain, vomiting, and diarrhea. No fever or chills. She reports she has been struggling with an overactive bladder but denies dysuria. In the ER, patient's initial troponin is negative and EKG is unchanged from prior. She was given full dose aspirin. Past Medical/Surgical History Medical Problems: (1) Cervicalgia Status: Chronic (2) Depression with anxiety Status: Chronic (3) DM type 2 (diabetes mellitus, type 2) Status: Chronic (4) Gastroparesis Status: Chronic (5) GERD (gastroesophageal reflux disease) Status: Chronic (6) IBS (irritable bowel syndrome) Status: Chronic (7) Moderate persistent asthma Status: Chronic (8) Obesity Status: Chronic Surgical Problems: (1) H/O dilation and curettage Status: Chronic (2) H/O: hysterectomy Permanent Comment: COURT with SBO performed by Dr. Tanner 2007 Status: Chronic (3) History of tonsillectomy and adenoidectomy Status: Chronic (4) History of tubal ligation Status: Chronic Social History Problems: (1) Herpes simplex Status: Resolved Family History FH: cancer FATHER mother lived to age 93 no family history of premature CAD Social History Smoking Status: Former Smoker Alcohol Use: none Immunizations History of Influenza Vaccine: Yes Influenza Vaccine Date: Jul 21, 2016 History of Tetanus Vaccine?: Yes Tetanus Immunization Date: Jan 30, 2014 History of Pneumococcal: Yes Pneumococcal Date: March 03, 2009 History of Hepatitis B Vaccine: Yes Hepatitis Immunization Date: March 27, 1998 Multi-Drug Resistant Organisms History of MDRO: No Allergies Coded Allergies: Hydromorphone (Verified Allergy, Severe, itching, 01/04/17) Ondansetron (Verified Allergy, Intermediate, hives; RASH, 01/04/17) Sulfa Antibiotics (Verified Allergy, Intermediate, rash, 01/04/17) Aminoglycosides (Verified Allergy, Unknown, >, 01/04/17) Bacitracin (Verified Allergy, Unknown, >, 01/04/17) Ceftriaxone (Verified Allergy, Unknown, Rash, hives and itchiness., 01/04/17 ) Cephalexin (Unverified Allergy, Unknown, hives, 01/04/17) Latex1 -Allergic Contact Dermititis (Verified Allergy, Unknown, 01/04/17) Neomycin (Verified Allergy, Unknown, >, 01/04/17) Polymyxin B (Verified Allergy, Unknown, >, 01/04/17) Sulfamethoxazole w/Trimethoprim (Verified Allergy, Unknown, Unknown, ) Home Medications Scheduled Amitriptyline HCl (Amitriptyline HCl), 100 MG PO HS Aspirin (Aspirin), 81 MG PO DAILY Atorvastatin (Atorvastatin Calcium), 40 MG PO HS Buspirone Hcl (Buspirone Hcl), 5 MG PO BID Cholecalciferol (Vitamin D3), 1 TAB PO WK Dicyclomine Hcl (Dicyclomine Hcl), 10 MG PO QID Duloxetine HCl (Duloxetine HCl), 60 MG PO HS Esomeprazole Magnesium (Nexium), 40 MG PO DAILY Estrogens, Conjugated (Premarin), 1 GM VAGRING 2XWK Ferrous Sulfate (Ferrous Sulfate), 325 MG PO TIDM Hydroxyzine Hcl (Atarax), 50 MG PO DAILY Insulin Glargine (Lantus Solostar), 5 UNITS SC HS Lisinopril (Lisinopril), 2.5 MG PO DAILY Melatonin (Melatonin), 10 MG PO HS Metformin HCl (Metformin HCl), 500 MG PO BID Metoclopramide Hcl (Reglan), 10 MG PO ACHS Montelukast Sod (Montelukast Sodium), 10 MG PO QAM Multivitamin (Multivitamin), 1 TAB PO DAILY Polyethylene (Polyethylene Glycol 3350), 17 GM PO QAM Potassium Gluconate (Potassium Gluconate), 1,190 MG PO DAILY Ranitidine HCl (Ranitidine HCl), 150 MG PO HS Senna/Docusate Sod (Senokot S), 1 TAB PO QAM Sucralfate (Sucralfate), 1 GM PO ACHS Tolterodine Tartrate (Tolterodine Tartrate), 2 MG PO BID Scheduled PRN Acetaminophen (Tylenol), 1,000 MG PO UD PRN for Pain or Fever Diphenhydramine Hcl (Diphenhydramine Hcl), 25-50 MG PO Q4-6HRS PRN for Itching Fluticasone Prop/Salmeterol (Advair Diskus 500/50 60 Dose), 1 PUFF INH BID PRN for Shortness of Breath Fluticasone Propionate (Fluticasone Propionate), 2 SPRAYS JG DAILY PRN for Allergy Symptoms Hydrocortisone (Topical) (Hydrocortisone), 1 APPLN TOP UD PRN for Itching Ibuprofen (Ibuprofen), 800 MG PO Q8 PRN for Pain Ipratropium-Albuterol (Duoneb), 1 TREATMENT INH BID PRN for SOB/Wheezing Naproxen (Aleve), 440 MG PO Q12 PRN for Pain Promethazine HCl (Promethazine HCl), 25 MG PO Q6H PRN for Nausea Valacyclovir HCl (Valacyclovir HCl), 500 MG PO TID PRN for Outbreaks Review of Systems 10 point review of systems was completed with the pertinent positives and negatives noted per the HPI Physical Exam Vital Signs Date Time Temp Pulse Resp B/P Pulse Ox O2 Delivery O2 Flow Rate FiO2 01/04/17 16:49 81 16 114/85 95 01/04/17 15:54 84 16 95/67 96 Room Air 01/04/17 14:33 85 18 124/96 96 Room Air 01/04/17 13:40 97 Room Air 01/04/17 13:37 36.7 81 20 128/83 94 Room Air General Appearance: no apparent distress Head: normocephalic Eyes: normal inspection ENT: hearing grossly normal Neck: supple, no JVD Respiratory/Chest: lungs clear, normal breath sounds, no respiratory distress, + pertinent finding (left chest wall tenderness) Cardiovascular: regular rate, rhythm, no edema, normal peripheral pulses Abdomen/GI: normal bowel sounds, non tender, soft Extremities/Musculoskelatal: + pertinent finding (left shoulder pain with palpation and abduction of the left arm ) Neurologic/Psych: no motor/sensory deficits, alert, normal mood/affect, oriented x 3 Skin: normal color, warm/dry Diagnostics Laboratory Results Results Past 24 Hours Test 01/04/17 14:05 01/04/17 14:17 Range/Units White Blood Count 10.28 4.8-10.8 K/uL Red Blood Count 4.51 4.2-5.4 M/uL Hemoglobin 12.9 12.0-16.0 g/dL Hematocrit 37.6 37-47 % Mean Corpuscular Volume 83.4 80-100 fL Mean Corpuscular Hemoglobin 28.6 25-34 pg Mean Corpuscular Hemoglobin Concent 34.3 32-36 g/dl Platelet Count 373 130-400 K/uL Mean Platelet Volume 9.1 7.4-10.4 fL Neutrophils (%) (Auto) 50.6 % Lymphocytes (%) (Auto) 37.3 % Monocytes (%) (Auto) 8.9 % Eosinophils (%) (Auto) 2.7 % Basophils (%) (Auto) 0.4 % Neutrophils # (Auto) 5.20 1.4-6.5 K/uL Lymphocytes # (Auto) 3.83 1.2-3.4 K/uL Monocytes # (Auto) 0.92 0.11-0.59 K/uL Eosinophils # (Auto) 0.28 0-0.5 K/uL Basophils # (Auto) 0.04 0-0.2 K/uL RDW Standard Deviation 43.9 36.4-46.3 fL RDW Coefficient of Variation 14.3 11.5-14.5 % Immature Granulocyte % (Auto) 0.1 % Immature Granulocyte # (Auto) 0.01 0.00-0.02 K/uL Prothrombin Time 10.2 9.0-12.0 SECONDS Prothromb Time International Ratio 1.0 0.9-1.1 Sodium Level 140 136-145 mmol/L Potassium Level 3.8 3.5-5.1 mmol/L Chloride Level 104 98-107 mmol/L Carbon Dioxide Level 27 21-32 mmol/L Anion Gap 9.0 3-11 mmol/L Blood Urea Nitrogen 12 7-18 mg/dl Creatinine 0.86 0.60-1.20 mg/dl Est Creatinine Clear Calc Drug Dose 75.7 ml/min Estimated GFR () 86.3 Estimated GFR (Non- 74.5 BUN/Creatinine Ratio 13.9 10-20 Random Glucose 114 70-99 mg/dl Calcium Level 8.8 8.5-10.1 mg/dl Total Bilirubin 0.2 0.2-1 mg/dl Aspartate Amino Transf (AST/SGOT) 14 15-37 U/L Alanine Aminotransferase (ALT/SGPT) 42 12-78 U/L Alkaline Phosphatase 142 45-117 U/L Total Protein 7.0 6.4-8.2 gm/dl Albumin 3.5 3.4-5.0 gm/dl Globulin 3.5 2.5-4.0 gm/dl Albumin/Globulin Ratio 1.0 0.9-2 Bedside Troponin I 0.000 0-0.045 ng/ml Diagnostic Radiology CXR IMPRESSION: No active disease in the chest. Impression Assessment and Plan ATYPICAL CHEST PAIN - admit to tele - patient presenting with stabbing left sided chest pain with radiation into the left arm that occurred at rest; noted pain to be reproducible with chest wall palpation and shoulder movement on exam - risk factors: HTN, DM, HLD, obesity - 01/2016 - dobutamine stress negative for ischemia - initial troponin negative, EKG unchanged from prior - pain seems to be MSK in nature - continue ASA and statin - continue to cycle cardiac enzymes - if cardiac enzymes negative, will proceed with stress echo in AM HTN - BP controlled, continue Lisinopril DM - hgb a1c 6.2 07/2016 - hold oral agents and utilize SSI + Lantus while hospitalized ASTHMA - appears to be controlled, patient reports she does not use her inhalers regularly IBS, GERD - continue home meds ANXIETY, DEPRESSION - continue home meds DVT PROPHYLAXIS - SQ Lovenox DISPO - The patient will be placed as observation status for now until further work up is complete. ADDENDUM: I have seen and examined the patient and have discussed the case with the provider above. I agree with the assessment and plan as stated. She is a high utilizer of ER/hospital resources. Will consult Case Management to assist with this issue. Elaina [place], DO Hospitalist Level of Care Telemetry Resuscitation Status FULL RESUSCITATION VTE Prophylaxis VTE Risk Assessment Done? Y/N: Yes Risk Level: Moderate Given or contraindicated: Enoxaparin (Lovenox)SQ
[2017-01-04] MEDS: FERROUS SULFATE 325 MG TAB PO SCH (18:26)
[2017-01-04] MEDS: INSULIN ASPART 100 UNITS/ML 3 ML PEN SC SCH ×2 (18:28→20:16)
[2017-01-04] MEDS ORDERED: MoRPHine SULFATE 2 MG/ML CARP IV ONE (19:56)
[2017-01-04 19:58] VITALS: BP 122/81; PULSE 88; TEMP 37; O2SAT 95
[2017-01-04] MEDS: DICYCLOMINE HCL 10 MG CAP PO SCH (20:11)
[2017-01-04] MEDS: SUCRALFATE 1 GM TAB PO SCH (20:11)
[2017-01-04] MEDS: TOLTERODINE TARTRATE 2 MG TAB PO SCH (20:12)
[2017-01-04] MEDS: METOCLOPRAMIDE HCL 10 MG TAB PO SCH (20:13)
[2017-01-04 20:22] LABS: CKMB/CK RATIO 2.8 (0-3.0)
[2017-01-04] MEDS ORDERED: ATORVASTATIN 40 MG TAB PO SCH (21:00)
[2017-01-04] MEDS ORDERED: DULOXETINE HCL 60 MG CAP PO SCH (21:00)
[2017-01-04] MEDS ORDERED: INSULIN GLARGINE SOLOSTAR 100 UNITS/ML 3 ML PEN SC SCH ×2 (21:00)
[2017-01-04] MEDS ORDERED: RANITIDINE HCL 150 MG TAB PO SCH (21:00)
[2017-01-04] MEDS ORDERED: AMITRIPTYLINE HCL 100 MG TAB PO SCH (21:00)
[2017-01-04] MEDS: MoRPHine SULFATE 2 MG/ML CARP IV PRN (22:11)
[2017-01-04 23:36] VITALS: BP 109/74; PULSE 83; TEMP 36.9; O2SAT 95
[2017-01-05] MEDS: MoRPHine SULFATE 2 MG/ML CARP IV PRN ×2 (00:28→06:42)
[2017-01-05 02:26] LABS: CKMB/CK RATIO 1.5 (0-3.0)
[2017-01-05 03:48] VITALS: BP 111/77; PULSE 92; TEMP 36.5; O2SAT 95
[2017-01-05 06:01] LABS: HEMATOCRIT 37.5 % (37-47); MEAN CELL VOLUME 83.3 fL (80-100); MEAN CORPUSCULAR HEMOGLOBIN 28.9 pg (25-34); MEAN CORPUSCULAR HGB CONC 34.7 g/dl (32-36); MEAN PLATELET VOLUME 9.1 fL (7.4-10.4); PLATELET COUNT 364 K/uL (130-400); WHITE BLOOD COUNT 7.96 K/uL (4.8-10.8)
[2017-01-05 06:33] LABS: BUN/CREATININE RATIO 15.4 (10-20); CALCIUM 8.8 mg/dl (8.5-10.1); CREATININE 0.82 mg/dl (0.60-1.20); POTASSIUM 3.8 mmol/L (3.5-5.1)
[2017-01-05] MEDS: INSULIN ASPART 100 UNITS/ML 3 ML PEN SC SCH ×2 (07:00→13:16)
[2017-01-05] MEDS: METOCLOPRAMIDE HCL 10 MG TAB PO SCH ×2 (07:10→13:20)
[2017-01-05] MEDS: FERROUS SULFATE 325 MG TAB PO SCH ×2 (07:11→13:21)
[2017-01-05] MEDS: TOLTERODINE TARTRATE 2 MG TAB PO SCH (07:11)
[2017-01-05] MEDS: DICYCLOMINE HCL 10 MG CAP PO SCH ×2 (07:12→13:20)
[2017-01-05] MEDS: SUCRALFATE 1 GM TAB PO SCH ×2 (07:13→13:21)
[2017-01-05 07:18] LABS: ESTIMATED AVERAGE GLUCOSE 134 mg/dl; HA1C FLAG Normal (Normal)
[2017-01-05 07:57] VITALS: BP 120/83; PULSE 84; TEMP 36.7; O2SAT 94
[2017-01-05] MEDS ORDERED: DOCUSATE SODIUM/SENNA 50/8.6MG TAB PO SCH (09:00)
[2017-01-05] MEDS ORDERED: PANTOprazole SOD 40 MG TAB PO SCH (09:00)
[2017-01-05] MEDS ORDERED: MULTIVITAMIN TAB PO SCH (09:00)
[2017-01-05] MEDS ORDERED: MONTELUKAST SOD 10 MG TAB PO SCH (09:00)
[2017-01-05] MEDS ORDERED: hydrOXYzine HCL 25 MG TAB PO SCH (09:00)
[2017-01-05] MEDS ORDERED: LISINOPRIL 2.5 MG TAB PO SCH (09:00)
[2017-01-05] MEDS ORDERED: ENOXAPARIN 40 MG/0.4 ML SYR SQ SCH (09:00)
[2017-01-05] MEDS ORDERED: ASPIRIN 81 MG ECTAB PO SCH (09:00)
[2017-01-05] MEDS ORDERED: POLYETHYLENE (MIRALAX) 17 GM PACK PO SCH (09:00)
[2017-01-05] MEDS ORDERED: PERFLUTREN LIPID MICROSPHERE (DEFINITY) IV ONE (12:46)
[2017-01-05 13:07] VITALS: BP 113/78; PULSE 99; TEMP 36.8; O2SAT 98
[2017-01-05 13:08] VITALS: BP 113/78; PULSE 99; TEMP 36.8; O2SAT 98
--- NOTE | 2017-01-05 13:23 | Progress Note ---
Subjective Date of Service: Jan 05, 2017. Subjective Pt evaluation today including: conversation w/ patient, physical exam, lab review, review of studies, review of inpatient medication list Saw/examined the patient in room 229 she had her stress echo this morning no chest pain today, no shortness of breath chest wall tenderness improving Problem List Medical Problems: (1) Abscess Status: Acute (2) Acute electrocardiogram changes Status: Acute (3) Acute exacerbation of chronic low back pain Status: Acute (4) Back pain Status: Acute (5) Chronic back pain Status: Acute (6) Chronic low back pain Status: Acute (7) Chronic lumbar radiculopathy Status: Acute (8) Chronic lumbar radiculopathy Status: Acute (9) Constipation Status: Acute (10) Constipation Status: Acute (11) Dermatitis Status: Acute (12) Fall Status: Acute (13) Fall Status: Acute (14) Gastritis Status: Acute (15) Headache Status: Acute (16) Hip pain, bilateral Status: Acute (17) Knee pain Status: Acute (18) Left flank pain Status: Acute (19) Left flank pain Status: Acute (20) Left shoulder pain Status: Acute (21) Left sided chest pain Status: Acute (22) Leukocytosis Status: Acute (23) Lower back pain Status: Acute (24) Musculoskeletal chest pain Status: Acute (25) Nausea Status: Acute (26) Nausea, vomiting, and diarrhea Status: Acute (27) Precordial chest pain Status: Acute (28) Precordial chest pain Status: Acute (29) Right hip pain Status: Acute (30) Sciatica of right side Status: Acute (31) Tension headache Status: Acute (32) Upper respiratory infection Status: Acute (33) Urinary tract infection Status: Acute (34) Urinary tract infection Status: Acute (35) Urticaria Status: Acute (36) Vomiting and diarrhea Status: Acute Review of Systems Constitutional: No chills, No fever Respiratory: No cough, No dyspnea on exertion, No shortness of breath, No sputum Cardiac: No chest pain (chest wall pain) Abdomen: No diarrhea, No nausea, No pain, No vomiting Psychiatric: + anxiety (controlled with medications), + depression symptoms, + insomnia Heme: No abnormal bleeding/bruising Medications Current Inpatient Medications Medications (Trade) Dose Ordered Sig/Antony Route Start Time Stop Time Status Last Admin Dose Admin Acetaminophen (Tylenol Tab) 650 mg Q4H PRN PO 01/04/17 15:30 02/03/17 15:29 01/04/17 18:33 650 MG Nitroglycerin (Nitrostat Tab) 0.4 mg UD PRN SL 01/04/17 15:30 02/03/17 15:29 Aspirin (Ecotrin Tab) 81 mg QAM PO 01/05/17 09:00 02/04/17 08:59 01/05/17 07:10 81 MG Polyethylene (Miralax Powder Packet) 17 gm DAILY PRN PO 01/04/17 15:30 02/03/17 15:29 Insulin Aspart (novoLOG ASPART) SLIDING SCALE If C... ACHS SC 01/04/17 16:00 02/03/17 15:59 01/04/17 18:28 2 UNITS Glucose (Glucose 40% Gel) 15-30 GRAMS 15 GRAMS... UD PRN PO 01/04/17 15:30 02/03/17 15:29 Glucose (Glucose Chew Tab) 4-8 Tablets 4 Tabl... UD PRN PO 01/04/17 15:30 02/03/17 15:29 Dextrose (Dextrose 50% 50ML Syringe) 25-50ML OF 50% DW IV FOR... UD PRN IV 01/04/17 15:30 02/03/17 15:29 Glucagon (Glucagon Inj) 1 mg UD PRN SQ 01/04/17 15:30 02/03/17 15:29 Miscellaneous Information (Consult Glycemic Management Pharmacy) 1 ea UD N/A 01/04/17 15:53 02/03/17 15:52 Enoxaparin Sodium (Lovenox Inj) 40 mg QAM SQ 01/05/17 09:00 02/04/17 08:59 01/05/17 07:14 40 MG Atorvastatin Calcium (Lipitor Tab) 80 mg HS PO 01/04/17 21:00 02/03/17 20:59 01/04/17 20:13 80 MG Miscellaneous (Iv Fluids Completed) 1 ea PRN PRN N/A 01/04/17 16:30 01/04/18 16:29 Amitriptyline HCl (Elavil Tab) 100 mg HS PO 01/04/17 21:00 02/03/17 20:59 01/04/17 20:11 100 MG Buspirone HCl (Buspar Tab) 5 mg BID PO 01/04/17 21:00 02/03/17 20:59 01/05/17 07:08 5 MG Dicyclomine HCl (Bentyl Cap) 10 mg QID PO 01/04/17 21:00 02/03/17 20:59 01/05/17 07:12 10 MG Duloxetine HCl (Cymbalta Cap) 60 mg HS PO 01/04/17 21:00 02/03/17 20:59 01/04/17 20:10 60 MG Hydroxyzine HCl (Vistaril Tab) 50 mg DAILY PO 01/05/17 09:00 02/04/17 08:59 01/05/17 09:06 50 MG Lisinopril (Zestril Tab) 2.5 mg DAILY PO 01/05/17 09:00 02/04/17 08:59 01/05/17 07:09 2.5 MG Metoclopramide HCl (Reglan Tab) 10 mg ACHS PO 01/04/17 21:00 02/03/17 20:59 01/05/17 07:10 10 MG Montelukast Sodium (Singulair Tab) 10 mg QAM PO 01/05/17 09:00 02/04/17 08:59 01/05/17 07:11 10 MG Multivitamins (Multivitamin Tab) 1 tab DAILY PO 01/05/17 09:00 02/04/17 08:59 01/05/17 07:08 1 TAB Ranitidine HCl (zANTac TAB) 150 mg HS PO 01/04/17 21:00 02/03/17 20:59 01/04/17 20:13 150 MG Senna/Docusate Sodium (Senokot S Tab) 1 tab QAM PO 01/05/17 09:00 02/04/17 08:59 01/05/17 07:12 1 TAB Sucralfate (Carafate Tab) 1 gm ACHS PO 01/04/17 21:00 02/03/17 20:59 01/05/17 07:13 1 GM Tolterodine Tartrate (Detrol Tab) 2 mg BID PO 01/04/17 21:00 02/03/17 20:59 01/05/17 07:11 2 MG Pantoprazole Sodium (Protonix Tab) 40 mg DAILY PO 01/05/17 09:00 02/04/17 08:59 01/05/17 07:07 40 MG Ferrous Sulfate (Feosol Tab) 325 mg TIDM PO 01/04/17 17:30 02/03/17 17:59 01/05/17 07:11 325 MG Polyethylene (Miralax Powder Packet) 17 gm QAM PO 01/05/17 09:00 02/04/17 08:59 01/05/17 07:10 17 GM Miscellaneous Information (Order Awaiting Action) 1 ea QS N/A 01/05/17 00:00 02/04/17 00:00 Morphine Sulfate (MoRPHine SULFATE INJ) 2 mg Q2H PRN IV 01/04/17 20:00 01/18/17 19:59 01/05/17 06:42 2 MG Objective Vital Signs Date Time Temp Pulse Resp B/P Pulse Ox O2 Delivery O2 Flow Rate FiO2 01/05/17 13:08 36.8 99 16 98 Room Air 01/05/17 13:07 36.8 99 18 113/78 98 Room Air 01/05/17 11:16 Room Air 01/05/17 08:02 Room Air 01/05/17 07:57 36.7 84 20 120/83 94 Room Air 01/05/17 04:00 Room Air 01/05/17 03:48 36.5 92 18 111/77 95 Room Air 01/04/17 23:59 Room Air 01/04/17 23:36 36.9 83 18 109/74 95 Room Air 01/04/17 20:00 Room Air 01/04/17 19:58 37.0 88 19 122/81 95 Room Air 01/04/17 17:34 36.7 77 16 111/74 99 Room Air 01/04/17 16:49 81 16 114/85 95 01/04/17 15:54 84 16 95/67 96 Room Air 01/04/17 14:33 85 18 124/96 96 Room Air 01/04/17 13:40 97 Room Air 01/04/17 13:37 36.7 81 20 128/83 94 Room Air Physical Exam General Appearance: no apparent distress Respiratory/Chest: lungs clear, normal breath sounds, no respiratory distress, no accessory muscle use, + pertinent finding (+left sided chest wall tenderness to palpation) Cardiovascular: regular rate, rhythm, no edema, no gallop, no JVD, no murmur Abdomen: normal bowel sounds, non tender, soft Extremities: normal range of motion, non-tender, normal inspection, no pedal edema, no calf tenderness Neurologic/Psychiatric: no motor/sensory deficits, alert, normal mood/affect Skin: normal color Lymphatic: no adenopathy Laboratory Results Last 24 Hours Test 01/04/17 14:05 01/04/17 14:17 01/04/17 17:25 01/04/17 19:52 White Blood Count 10.28 K/uL Red Blood Count 4.51 M/uL Hemoglobin 12.9 g/dL Hematocrit 37.6 % Mean Corpuscular Volume 83.4 fL Mean Corpuscular Hemoglobin 28.6 pg Mean Corpuscular Hemoglobin Concent 34.3 g/dl Platelet Count 373 K/uL Mean Platelet Volume 9.1 fL Neutrophils (%) (Auto) 50.6 % Lymphocytes (%) (Auto) 37.3 % Monocytes (%) (Auto) 8.9 % Eosinophils (%) (Auto) 2.7 % Basophils (%) (Auto) 0.4 % Neutrophils # (Auto) 5.20 K/uL Lymphocytes # (Auto) 3.83 K/uL Monocytes # (Auto) 0.92 K/uL Eosinophils # (Auto) 0.28 K/uL Basophils # (Auto) 0.04 K/uL RDW Standard Deviation 43.9 fL RDW Coefficient of Variation 14.3 % Immature Granulocyte % (Auto) 0.1 % Immature Granulocyte # (Auto) 0.01 K/uL Prothrombin Time 10.2 SECONDS Prothromb Time International Ratio 1.0 Sodium Level 140 mmol/L Potassium Level 3.8 mmol/L Chloride Level 104 mmol/L Carbon Dioxide Level 27 mmol/L Anion Gap 9.0 mmol/L Blood Urea Nitrogen 12 mg/dl Creatinine 0.86 mg/dl Est Creatinine Clear Calc Drug Dose 75.7 ml/min Estimated GFR () 86.3 Estimated GFR (Non- 74.5 BUN/Creatinine Ratio 13.9 Random Glucose 114 mg/dl Calcium Level 8.8 mg/dl Total Bilirubin 0.2 mg/dl Aspartate Amino Transf (AST/SGOT) 14 U/L Alanine Aminotransferase (ALT/SGPT) 42 U/L Alkaline Phosphatase 142 U/L Total Protein 7.0 gm/dl Albumin 3.5 gm/dl Globulin 3.5 gm/dl Albumin/Globulin Ratio 1.0 Bedside Troponin I 0.000 ng/ml Bedside Glucose 101 mg/dl Total Creatine Kinase 36 U/L Creatine Kinase MB 1.0 ng/ml Creatine Kinase MB Ratio 2.8 Troponin I < 0.015 ng/ml Hepatitis C Antibody Screen NEG Test 01/04/17 20:14 01/05/17 01:49 01/05/17 05:40 01/05/17 06:39 Bedside Glucose 125 mg/dl 126 mg/dl Total Creatine Kinase 34 U/L Creatine Kinase MB 0.5 ng/ml Creatine Kinase MB Ratio 1.5 Troponin I < 0.015 ng/ml White Blood Count 7.96 K/uL Red Blood Count 4.50 M/uL Hemoglobin 13.0 g/dL Hematocrit 37.5 % Mean Corpuscular Volume 83.3 fL Mean Corpuscular Hemoglobin 28.9 pg Mean Corpuscular Hemoglobin Concent 34.7 g/dl RDW Standard Deviation 44.3 fL RDW Coefficient of Variation 14.5 % Platelet Count 364 K/uL Mean Platelet Volume 9.1 fL Sodium Level 139 mmol/L Potassium Level 3.8 mmol/L Chloride Level 105 mmol/L Carbon Dioxide Level 21 mmol/L Anion Gap 13.0 mmol/L Blood Urea Nitrogen 13 mg/dl Creatinine 0.82 mg/dl Est Creatinine Clear Calc Drug Dose 79.4 ml/min Estimated GFR () 91.4 Estimated GFR (Non- 78.9 BUN/Creatinine Ratio 15.4 Random Glucose 131 mg/dl Estimated Average Glucose 134 mg/dl Hemoglobin A1c 6.3 % Calcium Level 8.8 mg/dl Test 01/05/17 13:01 Bedside Glucose 144 mg/dl Assessment and Plan This is a 56 year old female with PMH of DM2, depression/anxiety, asthma, IBS presents with chest pain Chest Pain r/o ACS stress echo performed today, normal study EKG with no significant ST-T wave changes cardiac enzymes negative x 3 continue aspirin 81mg continue high intensity statin this was more of a chest wall tenderness, which is already improving no chest pain on discharge DM2 Ha1c = 6.3% well controlled continue metformin 500mg BID continue high intensity statin continue low dose GRISEL-I outpatient f/u for A1c, microalbumin, ophtho and podiatry follow-ups Depression/Anxiety continue home medications IBS continue home medications Asthma continue inhalers DVT ppx lovenox FULL CODE Discharge planning: home
[2017-01-05] MEDS ORDERED: ATOR-26 PO (13:27)
--- NOTE | 2017-01-05 13:29 | Discharge Instructions ---
Discharge Instructions Date of Service Jan 05, 2017. Admission Reason for Admission: Left Sided Chest Pain Discharge Discharge Diagnosis / Problem: Chest Wall Tenderness Discharge Goals Goal(s): Decrease discomfort, Improve function, Diagnostic testing, Therapeutic intervention Activity Recommendations Activity Limitations: resume your previous activity . Instructions / Follow-Up Instructions / Follow-Up Please follow-up with Dr. Peña on January 10 @ 12:50PM Lipitor was increased to 80mg at night Current Hospital Diet Patient's current hospital diet: AHA Diet (Heart Healthy), Diabetes Type 2 Diet Discharge Diet Recommended Diet: Diabetes Type 2 Diet Pending Studies Studies pending at discharge: no Laboratory Results Hemoglobin A1c Test 01/05/17 05:40 Range/Units Estimated Average Glucose 134 mg/dl Hemoglobin A1c 6.3 H 4.5-5.6 % Medical Emergencies . Who to Call and When: Medical Emergencies: If at any time you feel your situation is an emergency, please call 911 immediately. . Non-Emergent Contact Non-Emergency issues call your: Primary Care Provider . . "Provider Documentation" section prepared by Camille Gay. VTE Core Measure Inpt VTE Proph given/why not?: Enoxaparin (Lovenox)SQ
--- NOTE | 2017-01-05 13:30 | EXERCISE STRESS ECHO ---
*NOTICE TO RECEIVING [employer] This information is strictly Confidential and protected under [place] law. [place] law prohibits you from making any further disclosure of this information unless further disclosure is expressly permitted by the written consent of the person to whom it pertains or is authorized by law. A general authorization for the release of medical or other information is not sufficient for this purpose. Hospital accepts no responsibility if the information is made available to any other person, INCLUDING THE PATIENT. Interpretation Summary * Name: BEBO IZQUIERDO Study Date: 01/05/2017 08:05 AM BP: 106/75 mmHg * Patient Location: .2T\S\S229\S\1 HR: 95 * : 1960 (M/d/yyyy) Gender: Female Height: 61 in * Age: 56 yrs Ethnicity: [place] Weight: 212 lb * Ordering Physician: Kayla Mauricio * Referring Physician: Self, Referred * Performed By: Ignacia Schuler RCS * * Reason For Study: CHEST PAIN * BSA: 1.9 m2 * -- Conclusions -- * Normal stress echocardiogram at 3.1 METS and a peak heart rate of >100% predicted maximum. * Poor exercise tolerance * No exercise induced chest pain. * No ECG changes. * Baseline echocardiogram notes normal left ventricular systolic function and evidence of diastolic dysfunction. * Diagnostic sensitivity limited by low workload. Consider chemical stress testing if suspicion remains. Procedure Details * ECHOEX, CPT #[id number] * ECHO COLOR FLOW, CPT #[id number] * ECHO DOPPLER, CPT #[id number] * A contrast injection of Definity was performed to improve assessment of LV function. * Contrast was injected into an intravenous site in the right arm. * One vial of Definity ultrasound contrast was diluted in normal saline to a total volume of 10 ml. A total of '4' ml of solution was administered during imaging. * Lot # [id number] of Definity utilized for procedure. * Expiration date . * The attending nurse who injected the contrast agent was Marizol Ni RN. * The study was technically difficult with many images being suboptimal in quality. Left Ventricle * The left ventricle is normal in size. * There is borderline concentric left ventricular hypertrophy. * Ejection Fraction = 60-65%. * Left ventricular systolic function is normal. * Resting wall motion: Normal. Stress wall motion: Appropriate increase in Left ventricular systolic function and decrease in cavity size. No stress induced segmental wall motion abnormalities. Right Ventricle * The right ventricle is not well visualized. * The right ventricular systolic function is normal as assessed by tricuspid annular plane systolic excursion (TAPSE) (normal >1.5 cm). Atria * The left atrial size is normal. * Right atrium not well visualized. * There is no evidence of atrial septal defect, but resolution does not allow assessment for a patent foramen ovale. Mitral Valve * The mitral valve is grossly normal. * Significant mitral regurgitation is absent. Tricuspid Valve * The tricuspid valve is not well visualized. * Significant tricuspid regurgitation is absent. Aortic Valve * The aortic valve is not well visualized. * The aortic valve opens well. * No hemodynamically significant valvular aortic stenosis. * There is no significant aortic regurgitation. Pulmonic Valve * The pulmonic valve is not well visualized. Great Vessels * The aortic root is normal size. * Borderline dilated ascending aorta. Pericardium * There is no pericardial effusion. Stress Parameters * Normal baseline electrocardiogram. * Stress ECG: No ST changes. No arrhythmias. * The stress portion of this study was personally supervised by the undersigned interpreting physician. * Rest heart rate was '95' BPM. * Rest blood pressure was '106/75' * Maximum blood pressure was '139/43' * Total exercise time was '0:49' * Maximum exercise MET level achieved was '3.1' METS * Maximum treadmill speed was '1.7' miles per hour. * Maximum treadmill elevation was '10'% grade. * Exercise was terminated due to 'fatigue' * Normal blood pressure response to exercise. Left Ventricular Diastolic Function * Grade I diastolic dysfunction, (abnormal relaxation pattern). MMode 2D Measurements and Calculations IVSd 0.96 cm IVSs 1.2 cm LVIDd 3.8 cm LVIDs 2.6 cm LVPWd 0.96 cm LVPWs 1.2 cm IVS/LVPW 1.0 FS 33.2 % EDV(Teich) 63.0 ml ESV(Teich) 23.6 ml EF(Teich) 62.5 % EDV(cubed) 56.0 ml ESV(cubed) 16.7 ml EF(cubed) 70.1 % % IVS thick 22.0 % % LVPW thick 30.6 % LV mass(C)d 111.1 grams LV mass(C)dI 57.4 grams/m\S\2 LV mass(C)s 88.8 grams LV mass(C)sI 45.8 grams/m\S\2 CO(Teich) 3.8 l/min CI(Teich) 2.0 l/min/m\S\2 SV(Teich) 39.4 ml SI(Teich) 20.3 ml/m\S\2 CO(cubed) 3.8 l/min CI(cubed) 2.0 l/min/m\S\2 SV(cubed) 39.3 ml SI(cubed) 20.3 ml/m\S\2 Ao root diam 3.0 cm Ao root area 7.1 cm\S\2 ACS 1.6 cm LA dimension 3.0 cm LA/Ao 1.0 LVAd ap4 13.5 cm\S\2 LVLd ap4 6.0 cm EDV(MOD-sp4) 25.0 ml LVAs ap4 8.4 cm\S\2 LVLs ap4 5.4 cm ESV(MOD-sp4) 11.0 ml EF(MOD-sp4) 56.0 % LVAd ap2 22.3 cm\S\2 LVLd ap2 8.0 cm EDV(MOD-sp2) 53.0 ml LVAs ap2 12.5 cm\S\2 LVLs ap2 6.9 cm ESV(MOD-sp2) 20.0 ml EF(MOD-sp2) 62.3 % CO(MOD-sp4) 1.4 l/min CI(MOD-sp4) 0.70 l/min/m\S\2 SV(MOD-sp4) 14.0 ml SI(MOD-sp4) 7.2 ml/m\S\2 CO(MOD-sp2) 3.2 l/min CI(MOD-sp2) 1.7 l/min/m\S\2 SV(MOD-sp2) 33.0 ml SI(MOD-sp2) 17.0 ml/m\S\2 Doppler Measurements and Calculations MV E max vasiliy 63.2 cm/sec MV A max vasiliy 92.8 cm/sec MV E/A 0.68 MV P1/2t max vasiliy 58.1 cm/sec MV P1/2t 77.1 msec MVA(P1/2t) 2.9 cm\S\2 MV dec slope 220.6 cm/sec\S\2 MV dec time 0.26 sec Ao V2 max 107.0 cm/sec Ao max PG 4.6 mmHg Ao max PG (full) 1.3 mmHg LV V1 max PG 3.3 mmHg LV V1 max 91.2 cm/sec PA V2 max 100.4 cm/sec PA max PG 4.0 mmHg
--- NOTE | 2017-01-05 13:34 | Discharge Summary ---
Discharge Summary Date of Service Jan 05, 2017. Discharge Summary Admission Date: Jan 04, 2017 at 15:38 Discharge Date: Jan 05, 2017 Discharge Disposition: Home Principal Diagnosis: Chest Wall Tenderness Medication Reconciliation New Medications: Atorvastatin (Lipitor) 80 Mg Tab 1 TAB PO DAILY for 30 Days, #30 TAB 5 Refills Continued Medications: Acetaminophen (Tylenol) 500 Mg Tab 1000 MG PO UD PRN for Pain or Fever, TAB TAKE PER PACKAGE DIRECTIONS Amitriptyline HCl (Amitriptyline HCl) 100 Mg Tab 100 MG PO HS Aspirin (Aspirin) 81 Mg Tab 81 MG PO DAILY Buspirone Hcl (Buspirone Hcl) 5 Mg Tab 5 MG PO BID Cholecalciferol (Vitamin D3) 50,000 Unit Tab 1 TAB PO WK Dicyclomine Hcl (Dicyclomine Hcl) 10 Mg Cap 10 MG PO QID Diphenhydramine Hcl (Diphenhydramine Hcl) 25 Mg Tab 25-50 MG PO Q4-6HRS PRN for Itching Duloxetine HCl (Duloxetine HCl) 60 Mg Cap 60 MG PO HS Esomeprazole Magnesium (Nexium) 40 Mg Cap 40 MG PO DAILY Estrogens, Conjugated (Premarin) 14 Appln/30 Gm Cr 1 GM VAGRING 2XWK Ferrous Sulfate (Ferrous Sulfate) 325 Mg Tab 325 MG PO TIDM Fluticasone Prop/Salmeterol (Advair Diskus 500/50 60 Dose) 1 Ea Aerp 1 PUFF INH BID PRN for Shortness of Breath Fluticasone Propionate (Fluticasone Propionate) 120 Sprays/6000 Mcg Inha 2 SPRAYS JG DAILY PRN for Allergy Symptoms Hydrocortisone (Topical) (Hydrocortisone) 0.5 % Cre 1 APPLN TOP UD PRN for Itching Hydroxyzine Hcl (Atarax) 50 Mg Tab 50 MG PO DAILY, TAB Ibuprofen (Ibuprofen) 800 Mg Tab 800 MG PO Q8 PRN for Pain Insulin Glargine (Lantus Solostar) 100 Unit/Ml Inj 5 UNITS SC HS Ipratropium-Albuterol (Duoneb) 3 Ml Nebu 1 TREATMENT INH BID PRN for SOB/Wheezing, INHA Lisinopril (Lisinopril) 2.5 Mg Tab 2.5 MG PO DAILY Melatonin (Melatonin) 10 Mg Cap 10 MG PO HS Metformin HCl (Metformin HCl) 500 Mg Tab 500 MG PO BID Metoclopramide Hcl (Reglan) 10 Mg Tab 10 MG PO ACHS TAKE THIS MEDICATION ONE HOUR BEFORE MEALS AND BEDTIME Montelukast Sod (Montelukast Sodium) 10 Mg Tab 10 MG PO QAM Multivitamin (Multivitamin) Tab 1 TAB PO DAILY, TAB Naproxen (Aleve) 220 Mg Tab 440 MG PO Q12 PRN for Pain, TAB Polyethylene (Polyethylene Glycol 3350) 527 Gm Soln 17 GM PO QAM MIX WITH 8 OUNCES OF WATER Potassium Gluconate (Potassium Gluconate) 595 Mg Tab 1190 MG PO DAILY Promethazine HCl (Promethazine HCl) 25 Mg Tab 25 MG PO Q6H PRN for Nausea Ranitidine HCl (Ranitidine HCl) 150 Mg Tab 150 MG PO HS Senna/Docusate Sod (Senokot S) 1 Tab Tab 1 TAB PO QAM, TAB Sucralfate (Sucralfate) 1 Gm Tab 1 GM PO ACHS TAKE THIS MEDICATION ONE HOUR BEFORE MEALS AND BEDTIME Tolterodine Tartrate (Tolterodine Tartrate) 2 Mg Tab 2 MG PO BID, #60 Valacyclovir HCl (Valacyclovir HCl) 500 Mg Tab 500 MG PO TID PRN for Outbreaks Discontinued Medications: Atorvastatin (Atorvastatin Calcium) 40 Mg Tab 40 MG PO HS Admission Information HPI (per Admitting provider): 56 year old female who presents to the ER with chest pain. Patient reports she had just walked back from her neighbors and sat down on the couch. She reports she "didn't feel right". She has difficulty describing specific symptoms. She then laid down and went to sleep for a bit. When she woke up she reports severe left sided chest pain with radiation into the left arm. She describes the pain as a stabbing. She rates it at its worst #10/10. The chest pain resolved on its own about 3 hours later. She reports she still has some neck, left shoulder, and left arm pain. She reports associated nausea. She denies shortness of breath and diaphoresis. She reports chronic fatigue which is unchanged. She feels as though she is tolerating her daily activities at baseline. No orthopnea or lower extremity edema. She denies abdominal pain, vomiting, and diarrhea. No fever or chills. She reports she has been struggling with an overactive bladder but denies dysuria. In the ER, patient's initial troponin is negative and EKG is unchanged from prior. She was given full dose aspirin. Physical Exam (per Admitting): General Appearance: no apparent distress Head: normocephalic Eyes: normal inspection ENT: hearing grossly normal Neck: supple, no JVD Respiratory/Chest: lungs clear, normal breath sounds, no respiratory distress, + pertinent finding (left chest wall tenderness) Cardiovascular: regular rate, rhythm, no edema, normal peripheral pulses Abdomen/GI: normal bowel sounds, non tender, soft Extremities/Musculoskelatal: + pertinent finding (left shoulder pain with palpation and abduction of the left arm ) Neurologic/Psych: no motor/sensory deficits, alert, normal mood/affect, oriented x 3 Skin: normal color, warm/dry Hospital Course This is a 56 year old female with PMH of DM2, depression/anxiety, asthma, IBS presents with chest pain Chest Pain r/o ACS stress echo performed today, normal study EKG with no significant ST-T wave changes cardiac enzymes negative x 3 continue aspirin 81mg continue high intensity statin this was more of a chest wall tenderness, which is already improving no chest pain on discharge DM2 Ha1c = 6.3% well controlled continue metformin 500mg BID continue high intensity statin continue low dose GRISEL-I outpatient f/u for A1c, microalbumin, ophtho and podiatry follow-ups Depression/Anxiety continue home medications IBS continue home medications Asthma continue inhalers DVT ppx lovenox FULL CODE Discharge planning: home Total time spent on discharge = 25 minutes This includes examination of the patient, discharge planning, medication reconciliation, and communication with other providers. Discharge Instructions Please follow-up with Dr. Peña on January 10 @ 12:50PM Lipitor was increased to 80mg at night
[2017-02-09] MEDS ORDERED: NAPR1TAB9 PO (10:30)
[2017-02-09] MEDS ORDERED: PROM25TA16 PO (14:59)
[2017-02-09] MEDS ORDERED: POTA1TAB PO (15:03)
[2017-02-09] MEDS ORDERED: MELA1CAP9 PO (15:09)
[2017-02-09] MEDS ORDERED: ASPI1TAB83 PO (15:29)
[2017-02-09] MEDS ORDERED: MULT-506 PO (15:53)
[2017-02-09] MEDS ORDERED: MRLP527 PO (15:56)
[2017-02-09] MEDS ORDERED: SUCR1TAB PO (15:56)
[2017-02-09] MEDS ORDERED: CYM60 PO (15:56)
[2017-02-09] MEDS ORDERED: RANI150T2 PO (15:56)
[2017-02-09] MEDS ORDERED: SNG10 PO (15:59)
[2017-02-09] MEDS ORDERED: ADVIN50/60 INH (16:10)
[2017-02-09] MEDS ORDERED: GLC500 PO (16:26)
[2017-02-09] MEDS ORDERED: BUSP5TAB59 PO (16:26)
[2017-02-09] MEDS ORDERED: DIPH25TA32 PO (16:27)
[2017-02-09] MEDS ORDERED: MTR800 PO (16:31)
[2017-02-09] MEDS ORDERED: HYDR0.5C TOP (16:59)
[2017-02-09] MEDS ORDERED: TOLT2TAB9 PO (17:08)
[2017-02-09] MEDS ORDERED: VLT500 PO (19:28)
[2017-02-09] MEDS ORDERED: SENN-65 PO (20:07)
[2017-02-09] MEDS ORDERED: FLNIN/ NAE (20:57)
[2017-02-09] MEDS ORDERED: METO-157 PO (21:00)
[2017-02-09] MEDS ORDERED: ATOR-26 PO (21:11)
[2017-02-09] MEDS ORDERED: LSN25 PO (21:39)
[2017-02-09] MEDS ORDERED: DICY10CA12 PO (21:39)
[2017-02-09] MEDS ORDERED: FERR325T PO (21:44)
[2017-02-09] MEDS ORDERED: AMT100 PO (21:46)
[2017-02-09] MEDS ORDERED: INSDGIPEN SC (22:29)
[2017-02-09] MEDS ORDERED: IPRASOL4 INH (22:43)
[2017-04-04] MEDS ORDERED: ESTCR PV (18:18)
[2017-04-22] MEDS ORDERED: MIRA100T PO (21:50)
[2017-06-06] MEDS ORDERED: OXYB5TAB74 PO (14:15)
== END 2017-01-05 15:00 | disposition home or self-care (01) ==
LOC: ENRESERVDT → ENRESERVTM → C.EDB 13:36 → C.2T 15:38
PROVIDERS: ADMIT Hospitalist; ATTEND Family Medicine
DX: R07.89 Other chest pain (principal); E11.43 Type 2 diabetes mellitus with diabetic autonomic (poly)neuropathy; I10 Essential (primary) hypertension; J45.40 Moderate persistent asthma, uncomplicated; E78.00 Pure hypercholesterolemia, unspecified; K21.9 Gastro-esophageal reflux disease without esophagitis; G43.909 Migraine, unspecified, not intractable, without status migrainosus; F41.8 Other specified anxiety disorders; K58.9 Irritable bowel syndrome, unspecified; E66.9 Obesity, unspecified; Z51.81 Encounter for therapeutic drug level monitoring; Z79.899 Other long term (current) drug therapy; Z79.4 Long term (current) use of insulin; Z79.82 Long term (current) use of aspirin; Z68.38 Body mass index [BMI] 38.0-38.9, adult; Z87.891 Personal history of nicotine dependence; Z82.49 Family history of ischemic heart disease and other diseases of the circulatory system; Z83.3 Family history of diabetes mellitus

== ENCOUNTER 2017-01-22 14:16 | Emergency (ER) | payer OTHER ==
[~2017-01-22] VITALS: Ht 154.9 cm; Wt 97.0 kg
[~2017-01-22 14:16] MED LIST changes: +ATOR-26 PO; +CHOL1TAB63 PO; +HYDR-3126 PO; -HYDR1CAP85 PO; -LPT40 PO; -PANT40TA PO; +PRMVC VAGRING; -TROS20TA3 PO
[2017-01-22 14:18] VITALS: TEMP 36.2; Ht 154.9 cm; Wt 97.0 kg
--- NOTE | 2017-01-22 15:18 | DIAGNOSTIC IMAGING REPORT ---
SINGLE VIEW PELVIS CLINICAL HISTORY: Fall with left pelvic pain. FINDINGS: An AP pelvic radiograph is compared to study dated 10/16/2016. The skeletal structures are osteopenic. No fracture is seen in the hips or bony pelvis. Only minimal degenerative change is seen in the hips. The sacroiliac joints are normal as imaged. The overlying soft tissues are within normal limits. Numerous phleboliths are identified in the pelvis. There is a nonobstructed abdominal bowel gas pattern. IMPRESSION: No fracture is identified in the hips or bony pelvis. Electronically signed by: Alfonso Reid M.D. 01/22/2017 3:17 PM Dictated Date/Time: 01/22/2017 3:16 PM
[2017-01-22] MEDS ORDERED: CARI350T27 PO (15:28)
[2017-01-22 15:38] VITALS: BP 122/84; PULSE 86; O2SAT 96
--- NOTE | 2017-01-22 17:17 | EMERGENCY ROOM VISIT NOTE ---
History First contact with patient: 14:31 Chief Complaint: HIP PAIN Stated Complaint: PAIN IN HIPS,PELVIS AND ANKLE History of Present Illness The patient is a 56 year old white female who presents to the Emergency Room with complaints of low back pain and left ankle pain after falling yesterday. Patient was walking up to her house around 1 in the morning and stepped in a pothole in the road. She states she lost her balance and fell over, landing on her left leg and buttock. She has had discomfort since. She has been ambulatory. She is currently wearing high heels. Pain persists. She is unsure if there was any swelling or discoloration. She denies any snaps or pops. She is well-known to the ED for various pain complaints. She denies any numbness or tingling. Treatment has consisted of ibuprofen 800 mg without relief. Review of Systems REVIEW OF SYSTEM: HEENT: No dizziness, visual problems, hearing loss, or tinnitus. There is no difficulty swallowing and no oral lesions are present. LYMPH: No adenopathy. PULMONARY: No cough, shortness of breath, sputum production or hemoptysis. CARDIOVASCULAR: No chest pain, palpitations, shortness of breath or peripheral edema. GASTROINTESTINAL: No diarrhea, constipation, nausea, vomiting, or abdominal pain. GENITOURINARY: No dysuria, frequency, urgency or nocturia. MUSCULOSKELETAL: No history of joint tenderness/swelling. No history of arthritis or arthralgias. SKIN: No rashes or lesions. PSYCHIATRIC: Positive history of depression and mental illness. ENDOCRINE: No history of thyroid disorders, or abnormal hair growth. Past Medical/Surgical History Medical Problems: (1) Cervicalgia (2) Depression with anxiety (3) DM type 2 (diabetes mellitus, type 2) (4) Gastroparesis (5) GERD (gastroesophageal reflux disease) (6) IBS (irritable bowel syndrome) (7) Moderate persistent asthma (8) Obesity Surgical Problems: (1) H/O dilation and curettage (2) H/O: hysterectomy (3) History of tonsillectomy and adenoidectomy (4) History of tubal ligation Social History Problems: (1) Herpes simplex Family History FH: cancer FATHER Social History Smoking Status: Former Smoker Alcohol Use: none Drug Use: none Housing Status: lives with significant other Occupation Status: employed Current/Historical Medications Scheduled Amitriptyline HCl (Amitriptyline HCl), 100 MG PO HS Aspirin (Aspirin), 81 MG PO DAILY Atorvastatin (Lipitor), 1 TAB PO DAILY Buspirone Hcl (Buspirone Hcl), 5 MG PO BID Dicyclomine Hcl (Dicyclomine Hcl), 10 MG PO QID Duloxetine HCl (Duloxetine HCl), 60 MG PO HS Esomeprazole Magnesium (Nexium), 40 MG PO DAILY Ferrous Sulfate (Ferrous Sulfate), 325 MG PO TIDM Hydroxyzine Hcl (Atarax), 50 MG PO DAILY Insulin Glargine (Lantus Solostar), 5 UNITS SC HS Lisinopril (Lisinopril), 2.5 MG PO DAILY Melatonin (Melatonin), 10 MG PO HS Metformin HCl (Metformin HCl), 500 MG PO BID Metoclopramide Hcl (Reglan), 10 MG PO ACHS Montelukast Sod (Montelukast Sodium), 10 MG PO QAM Multivitamin (Multivitamin), 1 TAB PO DAILY Polyethylene (Polyethylene Glycol 3350), 17 GM PO QAM Potassium Gluconate (Potassium Gluconate), 1,190 MG PO DAILY Ranitidine HCl (Ranitidine HCl), 150 MG PO HS Senna/Docusate Sod (Senokot S), 1 TAB PO QAM Sucralfate (Sucralfate), 1 GM PO ACHS Tolterodine Tartrate (Tolterodine Tartrate), 2 MG PO BID Scheduled PRN Acetaminophen (Tylenol), 1,000 MG PO UD PRN for Pain or Fever Carisoprodol (Soma), 1 TAB PO TID PRN for Pain Diphenhydramine Hcl (Diphenhydramine Hcl), 25-50 MG PO Q4-6HRS PRN for Itching Fluticasone Prop/Salmeterol (Advair Diskus 500/50 60 Dose), 1 PUFF INH BID PRN for Shortness of Breath Fluticasone Propionate (Fluticasone Propionate), 2 SPRAYS JG DAILY PRN for Allergy Symptoms Hydrocortisone (Topical) (Hydrocortisone), 1 APPLN TOP UD PRN for Itching Ibuprofen (Ibuprofen), 800 MG PO Q8 PRN for Pain Ipratropium-Albuterol (Duoneb), 1 TREATMENT INH BID PRN for SOB/Wheezing Naproxen (Aleve), 440 MG PO Q12 PRN for Pain Promethazine HCl (Promethazine HCl), 25 MG PO Q6H PRN for Nausea Valacyclovir HCl (Valacyclovir HCl), 500 MG PO TID PRN for Outbreaks Allergies Coded Allergies: Hydromorphone (Verified Allergy, Severe, itching, 01/22/17) Ondansetron (Verified Allergy, Intermediate, hives; RASH, 01/22/17) Sulfa Antibiotics (Verified Allergy, Intermediate, rash, 01/22/17) Aminoglycosides (Verified Allergy, Unknown, >, 01/22/17) Bacitracin (Verified Allergy, Unknown, >, 01/22/17) Ceftriaxone (Verified Allergy, Unknown, Rash, hives and itchiness., ) Cephalexin (Unverified Allergy, Unknown, hives, 01/22/17) Latex1 -Allergic Contact Dermititis (Verified Allergy, Unknown, 01/22/17) Neomycin (Verified Allergy, Unknown, >, 01/22/17) Polymyxin B (Verified Allergy, Unknown, >, 01/22/17) Sulfamethoxazole w/Trimethoprim (Verified Allergy, Unknown, Unknown, ) Physical Exam Vital Signs Date Time Temp Pulse Resp B/P Pulse Ox O2 Delivery O2 Flow Rate FiO2 01/22/17 15:38 86 18 122/84 96 Room Air 01/22/17 14:18 36.2 102 16 133/83 97 Pain Rating (0-10): 4.0 Physical Exam Gen.: Well-developed, well-nourished, middle-aged white female, in no acute distress. Sitting on a bed. Alert and oriented. She does not appear in any acute pain. Skin:Warm and dry with good turgor. No rashes or lesions. No ecchymosis or erythema. The patient is not diaphoretic. No abrasions. Musculoskeletal: Patient is ambulatory. She has no discomfort with palpation around her left knee, tibia, or fibula. No pain with palpation around the malleoli. Full range of motion of the ankle. She does complain of some discomfort with palpation over her heel. Achilles tendon is palpated throughout its entirety and found to be intact and without defect. Normal Padilla test. Intact motor function to the toes. No pain with palpation over the deltoid ligament or lateral ankle ligaments. Supple motion of her left hip. No pain over the anterior flexion crease, greater trochanter, or IT band. She describes discomfort with palpation over the left SI joint extending into the sacrum. No pain with palpation over the lumbar vertebrae. No pain with palpation over the right SI joint. No pain over the ischial tuberosity on the right or left. Neurologic: Gross sensation is intact across both lower extremities by soft touch. Peripheral pulses are 2+. Medical Decision & Procedures ER Provider Diagnostic Interpretation: Radiographic imaging obtained today of the pelvis was read by radiology as negative for fracture. I also reviewed the films. ED Course Patient was educated regarding today's findings. Conservative care measures were discussed. Likelihood of contusion was discussed. She may be experiencing some back spasm after her fall. She was reassured that I do not think an x-ray of the ankle as needed. She has been ambulatory in high heels and there is no discoloration or swelling. Pelvis films were reviewed and she was reassured that there is no fracture. She may continue with Tylenol, ibuprofen, and ice for the next several days. Switch to moist heat after a few days. Gentle stretching daily. Follow-up with her PCP as needed. She may require a muscle relaxer at times. Prescription was provided for Soma 350 mg every 6 hours as needed for severe spasm. Return to the ED for any other concerns. Medical Decision Possibility of fracture, tendon rupture, contusion, strain, disc injury, and SI joint dysfunction were considered. Impression Primary Impression: Sacral back pain Additional Impressions: Fall left ankle pain Departure Information Dispostion Home / Self-Care Condition GOOD Prescriptions Carisoprodol (SOMA) 350 Mg Tab 1 TAB PO TID Y for Pain for 30 Days, #12 TAB Prov: Andrew Reagan,P.A. 01/22/17 Forms WORK / SCHOOL INSTRUCTIONS, HOME CARE DOCUMENTATION FORM, MOTRIN USE, TYLENOL USE, IMPORTANT VISIT INFORMATION Patient Instructions My [facility] Additional Instructions Ice to any sore areas intermittently 3 days, then use moist heat Gentle stretching daily Ibuprofen 800 mg every 8 hours with food Soma 1 tablet every 8 hours as needed for pain/spasm-no driving Follow-up with your PCP as needed Problem Qualifiers Additional Impressions: Fall Encounter type: initial encounter Qualified Codes: W19.XXXA - Unspecified fall, initial encounter
[2017-02-09] MEDS ORDERED: NAPR1TAB9 PO (10:30)
[2017-02-09] MEDS ORDERED: PROM25TA16 PO (14:59)
[2017-02-09] MEDS ORDERED: POTA1TAB PO (15:03)
[2017-02-09] MEDS ORDERED: MELA1CAP9 PO (15:09)
[2017-02-09] MEDS ORDERED: ASPI1TAB83 PO (15:29)
[2017-02-09] MEDS ORDERED: MULT-506 PO (15:53)
[2017-02-09] MEDS ORDERED: MRLP527 PO (15:56)
[2017-02-09] MEDS ORDERED: CYM60 PO (15:56)
[2017-02-09] MEDS ORDERED: RANI150T2 PO (15:56)
[2017-02-09] MEDS ORDERED: SUCR1TAB PO (15:56)
[2017-02-09] MEDS ORDERED: SNG10 PO (15:59)
[2017-02-09] MEDS ORDERED: ADVIN50/60 INH (16:10)
[2017-02-09] MEDS ORDERED: BUSP5TAB59 PO (16:26)
[2017-02-09] MEDS ORDERED: GLC500 PO (16:26)
[2017-02-09] MEDS ORDERED: DIPH25TA32 PO (16:27)
[2017-02-09] MEDS ORDERED: MTR800 PO (16:31)
[2017-02-09] MEDS ORDERED: HYDR0.5C TOP (16:59)
[2017-02-09] MEDS ORDERED: TOLT2TAB9 PO (17:08)
[2017-02-09] MEDS ORDERED: VLT500 PO (19:28)
[2017-02-09] MEDS ORDERED: SENN-65 PO (20:07)
[2017-02-09] MEDS ORDERED: FLNIN/ NAE (20:57)
[2017-02-09] MEDS ORDERED: METO-157 PO (21:00)
[2017-02-09] MEDS ORDERED: ATOR-26 PO (21:11)
[2017-02-09] MEDS ORDERED: DICY10CA12 PO (21:39)
[2017-02-09] MEDS ORDERED: LSN25 PO (21:39)
[2017-02-09] MEDS ORDERED: FERR325T PO (21:44)
[2017-02-09] MEDS ORDERED: AMT100 PO (21:46)
[2017-02-09] MEDS ORDERED: INSDGIPEN SC (22:29)
[2017-02-09] MEDS ORDERED: IPRASOL4 INH (22:43)
[2017-04-04] MEDS ORDERED: ESTCR PV (18:18)
[2017-04-22] MEDS ORDERED: MIRA100T PO (21:50)
[2017-06-06] MEDS ORDERED: OXYB5TAB74 PO (14:15)
== END 2017-01-22 15:39 | disposition home or self-care (01) ==
LOC: C.EDB 14:17 → C.EDD 15:39
DX: M54.32 Sciatica, left side (principal); M25.572 Pain in left ankle and joints of left foot; W19.XXXA Unspecified fall, initial encounter; E11.9 Type 2 diabetes mellitus without complications; K21.9 Gastro-esophageal reflux disease without esophagitis; K58.9 Irritable bowel syndrome, unspecified; F32.9 Major depressive disorder, single episode, unspecified; J45.909 Unspecified asthma, uncomplicated; K31.84 Gastroparesis; F41.9 Anxiety disorder, unspecified; Z90.710 Acquired absence of both cervix and uterus; Z98.51 Tubal ligation status; Z98.890 Other specified postprocedural states; Z79.84 Long term (current) use of oral hypoglycemic drugs; Z79.4 Long term (current) use of insulin; Z79.82 Long term (current) use of aspirin; Z79.899 Other long term (current) drug therapy; Z88.2 Allergy status to sulfonamides; Z88.5 Allergy status to narcotic agent; Z88.8 Allergy status to other drugs, medicaments and biological substances; Z91.040 Latex allergy status

== ENCOUNTER 2017-02-09 20:25 | Emergency (ER) | payer OTHER ==
[~2017-02-09] VITALS: Ht 154.9 cm; Wt 98.7 kg
[~2017-02-09 20:25] MED LIST changes: +CARI350T27 PO; -CHOL1TAB63 PO; +DIPH25TA32 PO; +HYDR0.5C TOP; +MELA1CAP9 PO; +MTR800 PO; +NAPR1TAB9 PO; -PRMVC VAGRING; +SNG10 PO; +TOLT2TAB9 PO
[2017-02-09] MEDS ORDERED: ACET-1256 PO (20:33)
[2017-02-09 20:39] VITALS: TEMP 36.8; Ht 154.9 cm; Wt 98.7 kg
[2017-02-09] MEDS ORDERED: HYDR1CAP85 PO (21:11)
[2017-02-09] MEDS ORDERED: ESOM1CAP34 PO (21:11)
[2017-02-09] MEDS ORDERED: CARI350T28 PO (21:15)
[2017-02-09] MEDS ORDERED: PROMETHAZINE HCL INJ 25 MG/ML 1 ML VIAL IM STA (22:00)
[2017-02-09] MEDS ORDERED: MoRPHine SULFATE 10 MG/ML CARP/VIAL IM STA (22:00)
[2017-02-09 22:28] VITALS: BP 126/75; PULSE 80; O2SAT 98
--- NOTE | 2017-02-09 22:36 | EMERGENCY ROOM VISIT NOTE ---
ED Visit Note First contact with patient: 21:35 Chief Complaint: Back Pain History of Present Illness: Patient is a 56-year-old female who presents the emergency department today for evaluation of low back pain. She also reports that after eating a sandwich today she had 3 episodes of vomiting. The patient has a significant past medical history of the same symptoms. Her pain is isolated to the sacral area. She has been evaluated and is currently been treated at [facility]. She does not take daily medications for this. She denies any falls or recent trauma to the spine. She denies any numbness or weakness into the distal extremity's. She denies any loss of control bowel/ bladder saddle anesthesia. She tried [id number] medications without relief of symptoms. She rates her current discomfort as a 9/10. She denies any fevers, chills, abdominal pain, hematochezia, melena, hematuria, or dysuria. Medications: Reviewed and discussed with the patient. Allergies: Multiple allergies listed above. PMH: As above. SHx: Patient is a 56-year-old female who lives at home with significant other. ROS: All pertinent positive and negative review of systems are appropriately documented in the History of Present Illness. Physical Exam: VITAL SIGNS - Vital signs and nursing notes were reviewed. GENERAL - 56-year-old female appearing her stated age and in noticeable discomfort throughout the exam. NECK - FROM of the cervical spine. ABDOMEN - Abdominal contour obese without pulsations or visible masses. BS normoactive all four quadrants. No tenderness, palpable masses, hepatosplenomegaly, or ascites noted. MUSCULOSKELETAL - ROM of the lumbar spine region was assessed as full. Pt was laying on the exam table. Pt made fluent movements when asked to change position. No step-off deformities were palpated down the thoracolumbar spines. Moderate Tenderness to Palpation experienced at the level of the lower lumbar paraspinal muscle distribution. No reproducible tenderness to palpation across the iliac spine. NEUROLOGIC - REFLEXES: +3/4 patellar reflexes B/L. SENSORY: Spinothalamic tract was found to be intact with ability to discriminate sharp versus dull sensation at the level of hip joint down do the great toe. No sensory defects of the dorsal column were appreciated utilizing light touch for evaluation. CEREBELLAR: Pt able to perform rapid alternating movements of the feet. EXTREMITIES - Range of Motion - No tremors, ticks, or fasciculations of the lower extremities noticed during inspection. FROM of the lower extremities. Pt had +5/5 strength appreciated bilaterally in the lower extremities against examiner's resistance. VASCULAR - Capillary refill of the great toe was brisk. No mottling or blanching of the extremities present. +3/5 dorsalis pedis pulses palpated bilaterally. ED Course: Patient was seen and evaluated by myself. Previous emergency department visit notes were reviewed. The patient presents today with an acute exacerbation of her chronic low back pain. She had an episode of nausea and vomiting 3 after sandwich. She feels much better at this time. She was treated with 10 mg morphine and 25 mg Phenergan intramuscularly for her ongoing symptoms. She is on a 2 shot per month treatment protocol. She has not received her first shot this month. The patient was educated on worrisome symptoms for return visit to the emergency department. Patient discharged home in good condition. In the evaluation and treatment of this patient the following differential diagnoses were considered: Cauda equina syndrome, discitis, HNP, sciatica, epidural abscess, psoas abscess, musculoskeletal strain, lumbar fracture, lumbar dislocation, lumbar subluxation, spondylolisthesis, spondylosis, or compression fracture. Given the patient's presentation and stated complaint, I did elect to perform the above-mentioned workup. The patient presents today with an acute exacerbation of her chronic low back pain. She has good reflexes distally. Strength is intact bilaterally. She has been seen and evaluated in this emergency department on multiple occasions for the same symptoms. I do not feel that imaging studies or further evaluation is necessary at this point. Patient was educated on worrisome symptoms for return visit to the emergency department. Patient discharged home in good condition. Impression: Acute exacerbation of chronic low back pain, Nausea & Vomiting Discharge Instructions: You have been treated in the Emergency Department for Back Pain. You have received pain medicine in the emergency department which impairs your ability to operate a vehicle. It is illegal for you to drive after receiving these medicines. For pain control, you can use the following [id number] medicines (if >12 yo): - Regular strength (325mg/tab) Tylenol (acetaminophen) 2 tabs every 4-6 hours as needed. Do not exceed 12 tablets in a 24 hour period. Avoid taking more than 4 grams (4000 mg) of Tylenol per day. This includes any other sources of acetaminophen you may take on a regular basis. - Regular strength (200 mg/tab) Advil (ibuprofen) 1-2 tabs every 4-6 hours as needed. Do not exceed a dose of 3200 mg per day. If this is an acute injury, ice can be applied to the area of pain for the first 3 days to help decrease pain and inflammation. After the first 3 days, a heating pad can be used over the area for continued soothing relief. You should schedule a follow-up appointment in 2-3 days with your Primary Care Provider for further evaluation and treatment of your back pain. Return to the Emergency Department if your current symptoms worsen despite treatment course outlined above, or if you develop any of the following symptoms : intractable pain despite aforementioned treatment course, loss of control of your bowel or bladder, numbness or tingling in your groin, or development of a fever. Problem List Medical Problems: (1) Cervicalgia Status: Chronic (2) Depression with anxiety Status: Chronic (3) DM type 2 (diabetes mellitus, type 2) Status: Chronic (4) Gastroparesis Status: Chronic (5) GERD (gastroesophageal reflux disease) Status: Chronic (6) IBS (irritable bowel syndrome) Status: Chronic (7) Moderate persistent asthma Status: Chronic (8) Obesity Status: Chronic Surgical Problems: (1) H/O dilation and curettage Status: Chronic (2) H/O: hysterectomy Permanent Comment: COURT with SBO performed by Dr. Tanner 2007 Status: Chronic (3) History of tonsillectomy and adenoidectomy Status: Chronic (4) History of tubal ligation Status: Chronic Social History Problems: (1) Herpes simplex Status: Resolved Current/Historical Medications Scheduled Amitriptyline HCl (Amitriptyline HCl), 100 MG PO HS Aspirin (Aspirin), 81 MG PO DAILY Atorvastatin (Lipitor), 80 MG PO DAILY Buspirone Hcl (Buspirone Hcl), 5 MG PO BID Dicyclomine Hcl (Dicyclomine Hcl), 10 MG PO QID Duloxetine HCl (Duloxetine HCl), 60 MG PO HS Esomeprazole Magnesium (Esomeprazole Magnesium), 40 MG PO QAM Ferrous Sulfate (Ferrous Sulfate), 325 MG PO TIDM Hydroxyzine Pamoate (Vistaril), 25 MG PO BID Insulin Glargine (Lantus Solostar), 5 UNITS SC HS Lisinopril (Lisinopril), 2.5 MG PO DAILY Melatonin (Melatonin), 10 MG PO HS Metformin HCl (Metformin HCl), 500 MG PO TID Metoclopramide Hcl (Reglan), 10 MG PO ACHS Montelukast Sod (Montelukast Sodium), 10 MG PO QAM Multivitamin (Multivitamin), 1 TAB PO DAILY Polyethylene (Polyethylene Glycol 3350), 17 GM PO QAM Potassium Gluconate (Potassium Gluconate), 1,190 MG PO DAILY Ranitidine HCl (Ranitidine HCl), 150 MG PO HS Senna/Docusate Sod (Senokot S), 1 TAB PO QAM Sucralfate (Sucralfate), 1 GM PO ACHS Tolterodine Tartrate (Tolterodine Tartrate), 2 MG PO BID Scheduled PRN Acetaminophen (Tylenol), 1,000 MG PO UD PRN for Pain or Fever Carisoprodol (Soma), 350 MG PO TID PRN for Pain Diphenhydramine Hcl (Diphenhydramine Hcl), 25-50 MG PO Q4-6HRS PRN for Itching Fluticasone Prop/Salmeterol (Advair Diskus 500/50 60 Dose), 1 PUFF INH BID PRN for Shortness of Breath Fluticasone Propionate (Fluticasone Propionate), 2 SPRAYS JG DAILY PRN for Allergy Symptoms Hydrocortisone (Topical) (Hydrocortisone), 1 APPLN TOP UD PRN for Itching Ibuprofen (Ibuprofen), 800 MG PO Q8 PRN for Pain Ipratropium-Albuterol (Duoneb), 1 TREATMENT INH BID PRN for SOB/Wheezing Naproxen (Aleve), 440 MG PO Q12 PRN for Pain Promethazine HCl (Promethazine HCl), 25 MG PO Q6H PRN for Nausea Valacyclovir HCl (Valacyclovir HCl), 500 MG PO TID PRN for Outbreaks Allergies Coded Allergies: Hydromorphone (Verified Allergy, Severe, itching, 01/22/17) Ondansetron (Verified Allergy, Intermediate, hives; RASH, 01/22/17) Sulfa Antibiotics (Verified Allergy, Intermediate, rash, 01/22/17) Aminoglycosides (Verified Allergy, Unknown, >, 01/22/17) Bacitracin (Verified Allergy, Unknown, >, 01/22/17) Ceftriaxone (Verified Allergy, Unknown, Rash, hives and itchiness., ) Cephalexin (Unverified Allergy, Unknown, hives, 01/22/17) Latex1 -Allergic Contact Dermititis (Verified Allergy, Unknown, 01/22/17) Neomycin (Verified Allergy, Unknown, >, 01/22/17) Polymyxin B (Verified Allergy, Unknown, >, 01/22/17) Sulfamethoxazole w/Trimethoprim (Verified Allergy, Unknown, Unknown, ) Vital Signs Date Time Temp Pulse Resp B/P Pulse Ox O2 Delivery O2 Flow Rate FiO2 02/09/17 22:28 80 18 126/75 98 Room Air 02/09/17 20:39 36.8 85 18 127/81 96 Room Air Medications Administered Medications (Trade) Dose Ordered Sig/Antony Route Start Time Stop Time Status Last Admin Dose Admin Morphine Sulfate (MoRPHine SULFATE INJ) 10 mg NOW STAT IM 02/09/17 22:00 02/09/17 22:01 DC 02/09/17 22:25 10 MG Promethazine HCl (Phenergan Inj) 25 mg NOW STAT IM 02/09/17 22:00 02/09/17 22:01 DC 02/09/17 22:00 25 MG Departure Information Impression Primary Impression: Acute exacerbation of chronic low back pain Additional Impression: Nausea & vomiting Dispostion Home / Self-Care Condition GOOD Referrals Cipriano Peña M.D. (MEDICAL) (PCP) Patient Instructions My [facility] Additional Instructions You have been treated in the Emergency Department for Back Pain. You have received pain medicine in the emergency department which impairs your ability to operate a vehicle. It is illegal for you to drive after receiving these medicines. For pain control, you can use the following [id number] medicines (if >12 yo): - Regular strength (325mg/tab) Tylenol (acetaminophen) 2 tabs every 4-6 hours as needed. Do not exceed 12 tablets in a 24 hour period. Avoid taking more than 4 grams (4000 mg) of Tylenol per day. This includes any other sources of acetaminophen you may take on a regular basis. - Regular strength (200 mg/tab) Advil (ibuprofen) 1-2 tabs every 4-6 hours as needed. Do not exceed a dose of 3200 mg per day. If this is an acute injury, ice can be applied to the area of pain for the first 3 days to help decrease pain and inflammation. After the first 3 days, a heating pad can be used over the area for continued soothing relief. You should schedule a follow-up appointment in 2-3 days with your Primary Care Provider for further evaluation and treatment of your back pain. Return to the Emergency Department if your current symptoms worsen despite treatment course outlined above, or if you develop any of the following symptoms : intractable pain despite aforementioned treatment course, loss of control of your bowel or bladder, numbness or tingling in your groin, or development of a fever. Problem Qualifiers Additional Impression: Nausea & vomiting Vomiting type: unspecified Vomiting Intractability: non-intractable Qualified Codes: R11.2 - Nausea with vomiting, unspecified
--- NOTE | 2017-02-09 22:37 | EMERGENCY ROOM VISIT NOTE ---
ED Visit Note First contact with patient: 21:35 I have seen and examined this patient with Andrés Figueroa and generally agree with the treatment plan as discussed. Problem List Medical Problems: (1) Cervicalgia Status: Chronic (2) Depression with anxiety Status: Chronic (3) DM type 2 (diabetes mellitus, type 2) Status: Chronic (4) Gastroparesis Status: Chronic (5) GERD (gastroesophageal reflux disease) Status: Chronic (6) IBS (irritable bowel syndrome) Status: Chronic (7) Moderate persistent asthma Status: Chronic (8) Obesity Status: Chronic Surgical Problems: (1) H/O dilation and curettage Status: Chronic (2) H/O: hysterectomy Permanent Comment: COURT with SBO performed by Dr. Tanner 2007 Status: Chronic (3) History of tonsillectomy and adenoidectomy Status: Chronic (4) History of tubal ligation Status: Chronic Social History Problems: (1) Herpes simplex Status: Resolved Current/Historical Medications Scheduled Amitriptyline HCl (Amitriptyline HCl), 100 MG PO HS Aspirin (Aspirin), 81 MG PO DAILY Atorvastatin (Lipitor), 80 MG PO DAILY Buspirone Hcl (Buspirone Hcl), 5 MG PO BID Dicyclomine Hcl (Dicyclomine Hcl), 10 MG PO QID Duloxetine HCl (Duloxetine HCl), 60 MG PO HS Esomeprazole Magnesium (Esomeprazole Magnesium), 40 MG PO QAM Ferrous Sulfate (Ferrous Sulfate), 325 MG PO TIDM Hydroxyzine Pamoate (Vistaril), 25 MG PO BID Insulin Glargine (Lantus Solostar), 5 UNITS SC HS Lisinopril (Lisinopril), 2.5 MG PO DAILY Melatonin (Melatonin), 10 MG PO HS Metformin HCl (Metformin HCl), 500 MG PO TID Metoclopramide Hcl (Reglan), 10 MG PO ACHS Montelukast Sod (Montelukast Sodium), 10 MG PO QAM Multivitamin (Multivitamin), 1 TAB PO DAILY Polyethylene (Polyethylene Glycol 3350), 17 GM PO QAM Potassium Gluconate (Potassium Gluconate), 1,190 MG PO DAILY Ranitidine HCl (Ranitidine HCl), 150 MG PO HS Senna/Docusate Sod (Senokot S), 1 TAB PO QAM Sucralfate (Sucralfate), 1 GM PO ACHS Tolterodine Tartrate (Tolterodine Tartrate), 2 MG PO BID Scheduled PRN Acetaminophen (Tylenol), 1,000 MG PO UD PRN for Pain or Fever Carisoprodol (Soma), 350 MG PO TID PRN for Pain Diphenhydramine Hcl (Diphenhydramine Hcl), 25-50 MG PO Q4-6HRS PRN for Itching Fluticasone Prop/Salmeterol (Advair Diskus 500/50 60 Dose), 1 PUFF INH BID PRN for Shortness of Breath Fluticasone Propionate (Fluticasone Propionate), 2 SPRAYS JG DAILY PRN for Allergy Symptoms Hydrocortisone (Topical) (Hydrocortisone), 1 APPLN TOP UD PRN for Itching Ibuprofen (Ibuprofen), 800 MG PO Q8 PRN for Pain Ipratropium-Albuterol (Duoneb), 1 TREATMENT INH BID PRN for SOB/Wheezing Naproxen (Aleve), 440 MG PO Q12 PRN for Pain Promethazine HCl (Promethazine HCl), 25 MG PO Q6H PRN for Nausea Valacyclovir HCl (Valacyclovir HCl), 500 MG PO TID PRN for Outbreaks Allergies Coded Allergies: Hydromorphone (Verified Allergy, Severe, itching, 01/22/17) Ondansetron (Verified Allergy, Intermediate, hives; RASH, 01/22/17) Sulfa Antibiotics (Verified Allergy, Intermediate, rash, 01/22/17) Aminoglycosides (Verified Allergy, Unknown, >, 01/22/17) Bacitracin (Verified Allergy, Unknown, >, 01/22/17) Ceftriaxone (Verified Allergy, Unknown, Rash, hives and itchiness., ) Cephalexin (Unverified Allergy, Unknown, hives, 01/22/17) Latex1 -Allergic Contact Dermititis (Verified Allergy, Unknown, 01/22/17) Neomycin (Verified Allergy, Unknown, >, 01/22/17) Polymyxin B (Verified Allergy, Unknown, >, 01/22/17) Sulfamethoxazole w/Trimethoprim (Verified Allergy, Unknown, Unknown, ) Vital Signs Date Time Temp Pulse Resp B/P Pulse Ox O2 Delivery O2 Flow Rate FiO2 02/09/17 22:28 80 18 126/75 98 Room Air 02/09/17 20:39 36.8 85 18 127/81 96 Room Air Medications Administered Medications (Trade) Dose Ordered Sig/Antony Route Start Time Stop Time Status Last Admin Dose Admin Morphine Sulfate (MoRPHine SULFATE INJ) 10 mg NOW STAT IM 02/09/17 22:00 02/09/17 22:01 DC 02/09/17 22:25 10 MG Promethazine HCl (Phenergan Inj) 25 mg NOW STAT IM 02/09/17 22:00 02/09/17 22:01 DC 02/09/17 22:00 25 MG Departure Information Impression Primary Impression: Acute exacerbation of chronic low back pain Additional Impression: Nausea & vomiting Dispostion Home / Self-Care Condition GOOD Referrals Cipriano Peña M.D. (MEDICAL) (PCP) Forms HOME CARE DOCUMENTATION FORM, Work Instructions, IMPORTANT VISIT INFORMATION Patient Instructions My [facility] Additional Instructions You have been treated in the Emergency Department for Back Pain. You have received pain medicine in the emergency department which impairs your ability to operate a vehicle. It is illegal for you to drive after receiving these medicines. For pain control, you can use the following [id number] medicines (if >12 yo): - Regular strength (325mg/tab) Tylenol (acetaminophen) 2 tabs every 4-6 hours as needed. Do not exceed 12 tablets in a 24 hour period. Avoid taking more than 4 grams (4000 mg) of Tylenol per day. This includes any other sources of acetaminophen you may take on a regular basis. - Regular strength (200 mg/tab) Advil (ibuprofen) 1-2 tabs every 4-6 hours as needed. Do not exceed a dose of 3200 mg per day. If this is an acute injury, ice can be applied to the area of pain for the first 3 days to help decrease pain and inflammation. After the first 3 days, a heating pad can be used over the area for continued soothing relief. You should schedule a follow-up appointment in 2-3 days with your Primary Care Provider for further evaluation and treatment of your back pain. Return to the Emergency Department if your current symptoms worsen despite treatment course outlined above, or if you develop any of the following symptoms : intractable pain despite aforementioned treatment course, loss of control of your bowel or bladder, numbness or tingling in your groin, or development of a fever. Problem Qualifiers
[2017-09-22] MEDS ORDERED: DTR/5 PO (14:15)
[2017-09-22] MEDS ORDERED: PROM25TA16 PO (14:59)
[2017-09-22] MEDS ORDERED: POTA1TAB PO (15:03)
[2017-09-22] MEDS ORDERED: ASPI1TAB83 PO (15:29)
[2017-09-22] MEDS ORDERED: MULT-506 PO (15:53)
[2017-09-22] MEDS ORDERED: SUCR1TAB PO (15:56)
[2017-09-22] MEDS ORDERED: MRLP527 PO (15:56)
[2017-09-22] MEDS ORDERED: CYM60 PO (15:56)
[2017-09-22] MEDS ORDERED: RANI150T2 PO (15:56)
[2017-09-22] MEDS ORDERED: ADVIN50/60 INH (16:10)
[2017-09-22] MEDS ORDERED: BUSP5TAB59 PO (16:26)
[2017-09-22] MEDS ORDERED: GLC500 PO (16:26)
[2017-09-22] MEDS ORDERED: ESTCR PV (18:18)
[2017-09-22] MEDS ORDERED: HYDR1CAP85 PO (19:14)
[2017-09-22] MEDS ORDERED: MELA1CAP9 PO (19:14)
[2017-09-22] MEDS ORDERED: SNG10 PO (19:14)
== END 2017-02-09 22:40 | disposition home or self-care (01) ==
LOC: C.EDB 20:27
DX: M54.5 Low back pain (principal); G89.29 Other chronic pain; R11.2 Nausea with vomiting, unspecified; E11.9 Type 2 diabetes mellitus without complications; F41.8 Other specified anxiety disorders; K21.9 Gastro-esophageal reflux disease without esophagitis; K58.9 Irritable bowel syndrome, unspecified; J45.40 Moderate persistent asthma, uncomplicated; Z90.710 Acquired absence of both cervix and uterus; Z98.51 Tubal ligation status; Z98.890 Other specified postprocedural states; Z79.82 Long term (current) use of aspirin; Z79.4 Long term (current) use of insulin; Z79.84 Long term (current) use of oral hypoglycemic drugs; Z79.899 Other long term (current) drug therapy; Z88.2 Allergy status to sulfonamides; Z88.5 Allergy status to narcotic agent; Z88.8 Allergy status to other drugs, medicaments and biological substances

== ENCOUNTER 2017-02-14 19:13 | Emergency (ER) | payer OTHER ==
[~2017-02-14] VITALS: Ht 154.9 cm; Wt 98.0 kg
[~2017-02-14 19:13] MED LIST changes: +ACET-1256 PO; -ATOR-26 PO; -CARI350T27 PO; +CARI350T28 PO; +ESOM1CAP34 PO; -HYDR-3126 PO; +HYDR1CAP85 PO; -NXM/40 PO
[2017-02-14 19:18] VITALS: BP 117/66; TEMP 36.7; Ht 154.9 cm; Wt 98.0 kg
--- NOTE | 2017-02-14 20:03 | EMERGENCY ROOM VISIT NOTE ---
ED Visit Note First contact with patient: 19:21 CHIEF COMPLAINT: Head injury last evening HISTORY OF PRESENT ILLNESS: Patient is a 56-year-old white female who is well- known to the emergency department who presents the emergency department tonight complaining of a headache. She states that she suffered a head injury 24 hours ago. She was getting out of the car when she hit the right frontal/temporal area on the door frame. She did not lose consciousness. She has had a mild throbbing generalized headache in addition to pain where she struck her head with some associated blurry vision. The headache was not alleviated with ibuprofen, and she was concerned that she might have a concussion and she was not getting any better. She denies that this is a migraine headache. She rates her pain a 9/10 presently. There has been no vomiting, difficulty with balance, speech, or coordination. No numbness, tingling or weakness to the extremities. She denies any neck pain. REVIEW OF SYSTEMS: Review of systems as per HPI. All other systems reviewed were negative. 10 systems reviewed. PMH: Electronic medical records are reviewed and summarized as above/below. See Problem List. SOCIAL HISTORY: Patient lives at home with her significant other. PHYSICAL EXAM: Vital Signs: Reviewed Nurse's notes. CONSTITUTIONAL: Patient is a well-appearing 56-year-old white female who is awake and alert and in no acute distress. HEENT: Normocephalic, atraumatic. Pupils equal, round, reactive to light and accommodation. EOMs intact without nystagmus. Sclera are anicteric. Tympanic membranes intact, with normal landmarks. External canals are clear. No hemotympanum or Li sign. Oral and nasopharynx are clear. No CSF rhinorrhea. Mucous membranes are moist. NECK: Supple, nontender, no lymphadenopathy. Full range of motion. HEART: Regular rate and rhythm, with normal S1 and S2, no murmur or gallop or rub is heard. LUNGS: Breath sounds equal and clear to auscultation without wheezes, rales, or rhonchi heard. SKIN: No lesions or rash, normal skin turgor. EXTREMITIES: No cyanosis, edema, joint tenderness or swelling. No deformity. NEUROLOGICAL: Alert and oriented x4. Cranial nerves 2 through 12, sensation and strength grossly intact. Gait is normal. Patient is able to toe, heel and tandem walk without difficulty. Negative Romberg, and pronator drift. Finger to nose, finger to finger and rapid alternating movements are intact. Immediate , recent and remote memories are intact. Concentration is normal. ED course: The patient was seen and evaluated as above. I am familiar with her from prior ED visits. She was just here 6 days ago for an exacerbation of her chronic low back pain. She presents the emergency department tonight with mild closed head injury symptoms. Her mechanism of injury nor her physical exam are worrisome for acute intracranial bleed or skull fracture and it was not felt that advanced neuro imaging with a head CT was indicated. This was discussed with the patient and she was in agreement. Verbal and written head injury instructions were outlined with the patient. I discussed with her avoiding sedating medications including narcotics as they mask signs of a worsening headache injury. She expressed understanding of this and was in agreement. She was educated on the worrisome signs or symptoms for which she should return to the emergency department. Differential diagnoses include concussion, closed head injury, head contusion, migraine headache, skull fracture, acute intracranial bleed, among others. Problem List Medical Problems: (1) Cervicalgia Status: Chronic (2) Depression with anxiety Status: Chronic (3) DM type 2 (diabetes mellitus, type 2) Status: Chronic (4) Gastroparesis Status: Chronic (5) GERD (gastroesophageal reflux disease) Status: Chronic (6) IBS (irritable bowel syndrome) Status: Chronic (7) Moderate persistent asthma Status: Chronic (8) Obesity Status: Chronic Surgical Problems: (1) H/O dilation and curettage Status: Chronic (2) H/O: hysterectomy Permanent Comment: COURT with SBO performed by Dr. Tanner 2007 Status: Chronic (3) History of tonsillectomy and adenoidectomy Status: Chronic (4) History of tubal ligation Status: Chronic Social History Problems: (1) Herpes simplex Status: Resolved Current/Historical Medications Scheduled Amitriptyline HCl (Amitriptyline HCl), 100 MG PO HS Aspirin (Aspirin), 81 MG PO DAILY Atorvastatin (Lipitor), 80 MG PO DAILY Buspirone Hcl (Buspirone Hcl), 5 MG PO BID Dicyclomine Hcl (Dicyclomine Hcl), 10 MG PO QID Duloxetine HCl (Duloxetine HCl), 60 MG PO HS Esomeprazole Magnesium (Esomeprazole Magnesium), 40 MG PO QAM Ferrous Sulfate (Ferrous Sulfate), 325 MG PO TIDM Hydroxyzine Pamoate (Vistaril), 25 MG PO BID Insulin Glargine (Lantus Solostar), 5 UNITS SC HS Lisinopril (Lisinopril), 2.5 MG PO DAILY Melatonin (Melatonin), 10 MG PO HS Metformin HCl (Metformin HCl), 500 MG PO TID Metoclopramide Hcl (Reglan), 10 MG PO ACHS Montelukast Sod (Montelukast Sodium), 10 MG PO QAM Multivitamin (Multivitamin), 1 TAB PO DAILY Polyethylene (Polyethylene Glycol 3350), 17 GM PO QAM Potassium Gluconate (Potassium Gluconate), 1,190 MG PO DAILY Ranitidine HCl (Ranitidine HCl), 150 MG PO HS Senna/Docusate Sod (Senokot S), 1 TAB PO QAM Sucralfate (Sucralfate), 1 GM PO ACHS Tolterodine Tartrate (Tolterodine Tartrate), 2 MG PO BID Scheduled PRN Acetaminophen (Tylenol), 1,000 MG PO UD PRN for Pain or Fever Carisoprodol (Soma), 350 MG PO TID PRN for Pain Diphenhydramine Hcl (Diphenhydramine Hcl), 25-50 MG PO Q4-6HRS PRN for Itching Fluticasone Prop/Salmeterol (Advair Diskus 500/50 60 Dose), 1 PUFF INH BID PRN for Shortness of Breath Fluticasone Propionate (Fluticasone Propionate), 2 SPRAYS JG DAILY PRN for Allergy Symptoms Hydrocortisone (Topical) (Hydrocortisone), 1 APPLN TOP UD PRN for Itching Ibuprofen (Ibuprofen), 800 MG PO Q8 PRN for Pain Ipratropium-Albuterol (Duoneb), 1 TREATMENT INH BID PRN for SOB/Wheezing Naproxen (Aleve), 440 MG PO Q12 PRN for Pain Promethazine HCl (Promethazine HCl), 25 MG PO Q6H PRN for Nausea Valacyclovir HCl (Valacyclovir HCl), 500 MG PO TID PRN for Outbreaks Allergies Coded Allergies: Hydromorphone (Verified Allergy, Severe, itching, 01/22/17) Ondansetron (Verified Allergy, Intermediate, hives; RASH, 01/22/17) Sulfa Antibiotics (Verified Allergy, Intermediate, rash, 01/22/17) Aminoglycosides (Verified Allergy, Unknown, >, 01/22/17) Bacitracin (Verified Allergy, Unknown, >, 01/22/17) Ceftriaxone (Verified Allergy, Unknown, Rash, hives and itchiness., ) Cephalexin (Unverified Allergy, Unknown, hives, 01/22/17) Latex1 -Allergic Contact Dermititis (Verified Allergy, Unknown, 01/22/17) Neomycin (Verified Allergy, Unknown, >, 01/22/17) Polymyxin B (Verified Allergy, Unknown, >, 01/22/17) Sulfamethoxazole w/Trimethoprim (Verified Allergy, Unknown, Unknown, ) Vital Signs Date Time Temp Pulse Resp B/P Pulse Ox O2 Delivery O2 Flow Rate FiO2 02/14/17 20:10 82 18 95 02/14/17 19:19 16 02/14/17 19:18 36.7 89 16 117/66 95 Room Air Departure Information Impression Primary Impression: Closed head injury Referrals Cipriano Peña M.D. (MEDICAL) (PCP) Patient Instructions My [facility] Additional Instructions Head injury instructions: Stop and stay away from ALL physical activity until you are symptom free from: Headaches Balance problems Feeling "dinged" Poor concentration Drowsy Fatigued Rest and avoid strenuous activities for the next few days. Get 8-10 hours of sleep per night. Limit activities that involve significant concentration and attention during this time to speed your recovery. This includes studying, attending school, playing video games, and heavy reading. Your brain needs to rest. Eat right and eat often. Now is the time to feed your brain. Well balanced diets that avoid high sugar foods, sodas, caffeine, etc. are better for your brain. NO ALCOHOL OR DRUGS! Avoid stimulants like caffeine, red bull, mountain dew, "energy" drinks, etc. Tylenol(acetaminophen) may be used for headaches. Use 1000mg every six hours as needed. Avoid using more than 3000mg in a 24 hour period. Avoid anti-inflammatories such as aspirin, ibuprofen, Alleve, naprosyn, Motrin, or Advil as these can interfere with blood clotting and lead to bleeding within the brain after a traumatic injury. FOLLOW UP INSTRUCTIONS: You should have a follow up with your family doctor in 3-5 days regarding your injury. Problems could arise over the next 24 to 48 hours. You should not be left alone and MUST go to the hospital immediately if you: -Have a headache that suddenly gets worse. -Are very drowsy or cannot be woken up from sleep. -Can't recognize people or places. -Have repeated vomiting. -Behave unusually, seemed confused, or start acting irritable. -Have a seizure (arms and legs start jerking uncontrollably). -Have weak or numb arms or legs. -Are unsteady on your feet -Experience slurred speech or difficulty speaking.
[2017-02-14 20:10] VITALS: PULSE 82; O2SAT 95
[2017-09-22] MEDS ORDERED: DTR/5 PO (14:15)
[2017-09-22] MEDS ORDERED: PROM25TA16 PO (14:59)
[2017-09-22] MEDS ORDERED: POTA1TAB PO (15:03)
[2017-09-22] MEDS ORDERED: ASPI1TAB83 PO (15:29)
[2017-09-22] MEDS ORDERED: MULT-506 PO (15:53)
[2017-09-22] MEDS ORDERED: CYM60 PO (15:56)
[2017-09-22] MEDS ORDERED: SUCR1TAB PO (15:56)
[2017-09-22] MEDS ORDERED: MRLP527 PO (15:56)
[2017-09-22] MEDS ORDERED: RANI150T2 PO (15:56)
[2017-09-22] MEDS ORDERED: ADVIN50/60 INH (16:10)
[2017-09-22] MEDS ORDERED: GLC500 PO (16:26)
[2017-09-22] MEDS ORDERED: BUSP5TAB59 PO (16:26)
[2017-09-22] MEDS ORDERED: ESTCR PV (18:18)
[2017-09-22] MEDS ORDERED: HYDR1CAP85 PO (19:14)
[2017-09-22] MEDS ORDERED: MELA1CAP9 PO (19:14)
[2017-09-22] MEDS ORDERED: SNG10 PO (19:14)
== END 2017-02-14 20:11 | disposition home or self-care (01) ==
LOC: C.EDB 19:15 → C.EDD 20:11
DX: S09.90XA Unspecified injury of head, initial encounter (principal); W22.8XXA Striking against or struck by other objects, initial encounter; E11.9 Type 2 diabetes mellitus without complications; F41.9 Anxiety disorder, unspecified; K21.9 Gastro-esophageal reflux disease without esophagitis; K58.9 Irritable bowel syndrome, unspecified; K31.84 Gastroparesis; J45.40 Moderate persistent asthma, uncomplicated; Z90.710 Acquired absence of both cervix and uterus; Z98.51 Tubal ligation status; Z79.82 Long term (current) use of aspirin; Z79.4 Long term (current) use of insulin; Z79.84 Long term (current) use of oral hypoglycemic drugs; Z79.899 Other long term (current) drug therapy; Z88.2 Allergy status to sulfonamides; Z88.5 Allergy status to narcotic agent; Z88.8 Allergy status to other drugs, medicaments and biological substances

== ENCOUNTER → 2017-02-27 | Outpatient (CLI) | payer OTHER ==
[~2017-02-27] MED LIST changes: +ADVIN50/60 INH; +AMT100 PO; +ASPI-390 PO; +ASPI1TAB83 PO; +ATOR-26 PO; +ATR25 PO; +BUSP5TAB59 PO; +CYM60 PO; +DICY10CA12 PO; +DOXY100C2 PO; +DTR/5 PO; +ESOM20GR PO; +ESTCR PV; +FERR1TAB62 PO; +FLNIN/ NAE; +GLC500 PO; +INSDGIPEN SC; +IPRASOL4 INH; +LSN25 PO; +MECL1TAB40 PO; +MELA1TAB22 PO; +MELA1TAB5 PO; +METO-157 PO; +MIRA100T PO; +MONT1TAB3 PO; +MRLP527 PO; +MULT-506 PO; +NRN100 PO; +OXYB10TA PO; +POTA1TAB PO; +PROM25TA16 PO; +RANI150T2 PO; +SENN-65 PO; +SUCR1TAB PO; +VLT500 PO
--- NOTE | 2017-02-27 11:22 | DIAGNOSTIC IMAGING REPORT ---
CT OF THE HEAD WITHOUT CONTRAST CLINICAL HISTORY: Head injury with loss of consciousness. COMPARISON STUDY: Head CT February 04, 2016. TECHNIQUE: Helical axial images of the head were obtained without IV contrast. Automated exposure control was utilized for the study. FINDINGS: No acute intracranial hemorrhage, midline shift or mass effect is present. Ventricular system is normal. Basilar cisterns are patent. There are no extra-axial collections. Parks-white differentiation is preserved. There is no calvarial fracture. IMPRESSION: 1. No acute intracranial findings. 2. No calvarial fracture. Electronically signed by: Mitchell Anderson M.D. 02/27/2017 11:21 AM Dictated Date/Time: 02/27/2017 11:18 AM
== END | disposition home or self-care (01) ==
LOC: C.CTS 11:04
PROVIDERS: ATTEND Family Medicine
DX: S06.0X1A Concussion with loss of consciousness of 30 minutes or less, initial encounter (principal); X58.XXXA Exposure to other specified factors, initial encounter

== ENCOUNTER → 2017-02-28 | Outpatient (CLI) | payer OTHER ==
--- NOTE | 2017-03-02 08:27 | MAMMOGRAPHY REPORT ---
BILATERAL DIGITAL SCREENING MAMMOGRAM TOMOSYNTHESIS WITH CAD: 02/28/2017 CLINICAL HISTORY: Routine screening. Patient has no complaints. TECHNIQUE: Breast tomosynthesis in addition to standard 2D mammography was performed. Current study was also evaluated with a Computer Aided Detection (CAD) system. COMPARISON: Comparison is made to exams dated: 02/26/2016 mammogram, 02/24/2015 mammogram, 02/21/2014 mammogram, 02/20/2013 mammogram, 02/21/2012 mammogram, and 02/19/2011 mammogram - [facility]. BREAST COMPOSITION: The tissue of both breasts is almost entirely fatty. FINDINGS: There is a stable asymmetry in the lateral right breast. No new suspicious mass, architec tural distortion or cluster of microcalcifications is seen. IMPRESSION: ACR BI-RADS CATEGORY 1: NEGATIVE There is no mammographic evidence of malignancy. A 1 year screening mammogram is recommended. The p atient will receive written notification of the results. Approximately 10% of breast cancers are not detected with mammography. A negative mammographic repor t should not delay biopsy if a clinically suggestive mass is present. Rocio Valera M.D. ay/:03/01/2017 19:03:31 City Director: Heydi MARQUEZ(Mara)(Tomasa)([place]), [facility] letter sent: Normal 1/2 BI-RADS Code: ACR BI-RADS Category 1: Negative
== END | disposition home or self-care (01) ==
LOC: C.MAMM 12:06
PROVIDERS: ATTEND Obstetrics & Gynecology
DX: Z12.31 Encounter for screening mammogram for malignant neoplasm of breast (principal)

== ENCOUNTER 2017-03-10 19:49 | Emergency (ER) | payer OTHER ==
[~2017-03-10] VITALS: Ht 154.9 cm; Wt 97.1 kg
[~2017-03-10 19:49] MED LIST changes: -ADVIN50/60 INH; -AMT100 PO; -ASPI-390 PO; -ASPI1TAB83 PO; -ATOR-26 PO; -ATR25 PO; -BUSP5TAB59 PO; -CYM60 PO; -DICY10CA12 PO; -DOXY100C2 PO; -DTR/5 PO; -ESOM20GR PO; -ESTCR PV; -FERR1TAB62 PO; -FLNIN/ NAE; -GLC500 PO; -INSDGIPEN SC; -IPRASOL4 INH; -LSN25 PO; -MECL1TAB40 PO; -MELA1TAB22 PO; -MELA1TAB5 PO; -METO-157 PO; -MIRA100T PO; -MONT1TAB3 PO; -MRLP527 PO; -MULT-506 PO; -NRN100 PO; -OXYB10TA PO; -POTA1TAB PO; -PROM25TA16 PO; -RANI150T2 PO; -SENN-65 PO; -SUCR1TAB PO; -VLT500 PO
[2017-03-10 19:55] VITALS: Ht 154.9 cm; Wt 97.1 kg
--- NOTE | 2017-03-10 20:06 | EMERGENCY ROOM VISIT NOTE ---
History Report prepared by Tamera: Sena Schuster Under the Supervision of: Dr. Vincent Grayd M.D. First contact with patient: 19:56 Chief Complaint: HEADACHE Stated Complaint: MIGRAINE History of Present Illness The patient is a 56 year old female who presents to the Emergency Room with complaints of a constant headache beginning this morning. The patient states that she has a history of migraines and this feels similar to her previous. She notes that she took 2 Excedrin this morning without relief of her symptoms. She complains of blurry vision consistent with her previous migraines, a cough, and chest tenderness that she notes is from coughing. She denies any rash, fevers, and neck stiffness. The patient reports that her pain is worsened with bright light and sound. She notes that she is not driving. Source of History: patient Onset: this morning Position: head Quality: ache Timing: constant Modifying Factors (Worsening): other (light and sound) Modifying Factors (Relieving): other (none) Associated Symptoms: + cough, No fevers, No neck pain, No rash Note: She complains of blurry vision consistent with her previous migraines and chest tenderness that she notes is from coughing. Review of Systems See HPI for pertinent positives & negatives. A total of 10 systems reviewed and were otherwise negative. Past Medical & Surgical Medical Problems: (1) Cervicalgia (2) Depression with anxiety (3) DM type 2 (diabetes mellitus, type 2) (4) Gastroparesis (5) GERD (gastroesophageal reflux disease) (6) IBS (irritable bowel syndrome) (7) Moderate persistent asthma (8) Obesity Surgical Problems: (1) H/O dilation and curettage (2) H/O: hysterectomy (3) History of tonsillectomy and adenoidectomy (4) History of tubal ligation Social History Problems: (1) Herpes simplex Family History FH: cancer FATHER Social History Smoking Status: Former Smoker Alcohol Use: none Drug Use: none Housing Status: lives with significant other Occupation Status: employed Current/Historical Medications Scheduled Amitriptyline HCl (Amitriptyline HCl), 100 MG PO HS Aspirin (Aspirin), 81 MG PO DAILY Atorvastatin (Lipitor), 80 MG PO DAILY Buspirone Hcl (Buspirone Hcl), 5 MG PO BID Dicyclomine Hcl (Dicyclomine Hcl), 10 MG PO QID Duloxetine HCl (Duloxetine HCl), 60 MG PO HS Esomeprazole Magnesium (Esomeprazole Magnesium), 40 MG PO QAM Ferrous Sulfate (Ferrous Sulfate), 325 MG PO TIDM Hydroxyzine Pamoate (Vistaril), 25 MG PO BID Insulin Glargine (Lantus Solostar), 5 UNITS SC HS Lisinopril (Lisinopril), 2.5 MG PO DAILY Metformin HCl (Metformin HCl), 500 MG PO TID Metoclopramide Hcl (Reglan), 10 MG PO ACHS Montelukast Sod (Montelukast Sodium), 10 MG PO QAM Multivitamin (Multivitamin), 1 TAB PO DAILY Polyethylene (Polyethylene Glycol 3350), 17 GM PO QAM Potassium Gluconate (Potassium Gluconate), 1,190 MG PO DAILY Ranitidine HCl (Ranitidine HCl), 150 MG PO HS Senna/Docusate Sod (Senokot S), 1 TAB PO QAM Sucralfate (Sucralfate), 1 GM PO ACHS Tolterodine Tartrate (Tolterodine Tartrate), 2 MG PO BID Scheduled PRN Acetaminophen (Tylenol), 1,000 MG PO UD PRN for Pain or Fever Carisoprodol (Soma), 350 MG PO TID PRN for Pain Diphenhydramine Hcl (Diphenhydramine Hcl), 25-50 MG PO Q4-6HRS PRN for Itching Fluticasone Prop/Salmeterol (Advair Diskus 500/50 60 Dose), 1 PUFF INH BID PRN for Shortness of Breath Fluticasone Propionate (Fluticasone Propionate), 2 SPRAYS JG DAILY PRN for Allergy Symptoms Hydrocortisone (Topical) (Hydrocortisone), 1 APPLN TOP UD PRN for Itching Ibuprofen (Ibuprofen), 800 MG PO Q8 PRN for Pain Ipratropium-Albuterol (Duoneb), 1 TREATMENT INH BID PRN for SOB/Wheezing Naproxen (Aleve), 440 MG PO Q12 PRN for Pain Promethazine HCl (Promethazine HCl), 25 MG PO Q6H PRN for Nausea Valacyclovir HCl (Valacyclovir HCl), 500 MG PO TID PRN for Outbreaks Allergies Coded Allergies: Hydromorphone (Verified Allergy, Severe, itching, 03/10/17) Ondansetron (Verified Allergy, Intermediate, hives; RASH, 03/10/17) Sulfa Antibiotics (Verified Allergy, Intermediate, rash, 03/10/17) Aminoglycosides (Verified Allergy, Unknown, >, 03/10/17) Bacitracin (Verified Allergy, Unknown, >, 03/10/17) Ceftriaxone (Verified Allergy, Unknown, Rash, hives and itchiness., ) Cephalexin (Verified Allergy, Unknown, hives, 03/10/17) Latex1 -Allergic Contact Dermititis (Verified Allergy, Unknown, 03/10/17) Neomycin (Verified Allergy, Unknown, >, 03/10/17) Polymyxin B (Verified Allergy, Unknown, >, 03/10/17) Sulfamethoxazole w/Trimethoprim (Verified Allergy, Unknown, Unknown, ) Physical Exam Vital Signs Date Time Temp Pulse Resp B/P Pulse Ox O2 Delivery O2 Flow Rate FiO2 03/10/17 19:55 36.4 92 16 122/83 95 Room Air Physical Exam GENERAL: Patient is well appearing and in mild distress. HEAD: No acute trauma, normocephalic atraumatic ENT: Mucous membranes moist, no nasal congestion. EYES: Equal/Reactive Bilaterally, No scleral icterus, Normal ROM NECK: No nuchal rigidity, no meningismus, trachea is midline, full ROM CHEST: Mild tenderness of her sternum she notes chronic with cough. LUNGS: No dyspnea. Clear to auscultation and equal bilaterally. No wheeze, no rhonchi. HEART: Regular rate and rhythm. No murmurs, rubs, gallops appreciated. ABDOMEN: Soft, nontender, bowel sounds positive, no masses appreciated, no peritonitis. BACK: No midline tenderness, no CVA tenderness EXTREMITIES: Normal motion all extremities, no cyanosis, no edema. NEUROLOGIC: Awake, Alert, Oriented, no acute motor or sensory deficits, no focal weakness, cranial nerves grossly intact. SKIN: No rash, no jaundice, no diaphoresis. Medical Decision & Procedures Medications Administered Medications (Trade) Dose Ordered Sig/Antony Route Start Time Stop Time Status Last Admin Dose Admin Morphine Sulfate (MoRPHine SULFATE INJ) 10 mg NOW STAT IM 03/10/17 20:07 03/10/17 20:13 DC 03/10/17 20:23 10 MG Promethazine HCl (Phenergan Inj) 25 mg NOW STAT IM 03/10/17 20:07 03/10/17 20:13 DC 03/10/17 20:22 25 MG ED Course 1955: The patient was evaluated in room B2. A complete history and physical exam was performed. 2007: Phenergan Inj 25mg IM, Morphine Sulfate 10mg IM. 2019: Reevaluated the patient. Discussed results and discharge instructions: She verbalized understanding and agreement. The patient is ready for discharge. Medical Decision Differential: Headache, Migraine, Cluster Headache, Seizure, Meningitis, Sinusitis, CO exposure, ICH/SAH, Infectious, Tumor, Sinus Thrombosis, Arterial Dissection, amongst other pathologies entertained. 56 yr old female arrives with her typical migraine like headache. No nuchal rigidity, no fever, no rash, and she had slow onset of headache throughout the day. Mild TTP over sternum which she notes gets regularly with coughing and no other symptoms. Clearly reproducible and is not consistent with ACS, dissection , PE. Not interested in treatment for this which seems reasonable. Furthermore her headache is not consistent with meningitis, sah, dissection, thrombosis. She regularly comes in to ED for same headache and was given her typical medications. Impression Primary Impression: Headache Additional Impression: Migraine Scribe Attestation The scribe's documentation has been prepared under my direction and personally reviewed by me in its entirety. I confirm that the note above accurately reflects all work, treatment, procedures, and medical decision making performed by me. Departure Information Dispostion Home / Self-Care Referrals Cipriano Peña M.D. (MEDICAL) (PCP) Forms HOME CARE DOCUMENTATION FORM, IMPORTANT VISIT INFORMATION Patient Instructions ED Headache Migraine, My [facility] Additional Instructions You have received a narcotic pain medication. These medications may cause drowsiness and should not be used with other sedative medications. Do not drive , drink alcohol, perform dangerous activities, nor make important decisions after taking these medications. alf use or inappropriate use may lead to addiction. Problem Qualifiers Primary Impression: Headache Headache type: unspecified Headache chronicity pattern: acute headache Intractability: not intractable Qualified Codes: R51 - Headache Additional Impression: Migraine Migraine type: unspecified Status migrainosus presence: without status migrainosus Intractability: not intractable Qualified Codes: G43.909 - Migraine, unspecified, not intractable, without status migrainosus
[2017-03-10] MEDS ORDERED: PROMETHAZINE HCL INJ 25 MG/ML 1 ML VIAL IM STA (20:07)
[2017-03-10] MEDS ORDERED: MoRPHine SULFATE 10 MG/ML CARP/VIAL IM STA (20:07)
[2017-03-10] MEDS ORDERED: ASPI-390 PO (20:27)
--- NOTE | 2017-03-10 20:31 | EMERGENCY ROOM VISIT NOTE ---
History First contact with patient: 19:56 Chief Complaint: HEADACHE Stated Complaint: MIGRAINE History of Present Illness The patient is a 56 year old female who presents to the Emergency Room with complaints of Migraine Headache since waking up this morning This morning woke up with awful migraine in front and back of head - Has had this kind of migraine before, gets migraines 3-4x/month - Gets botox injections every 3 months for migraines - Tried Excedrin migraine but didn't help at all - took 2 in the morning and 2 in the afternoon - Does not take a medication daily for migraines - Complains of blurry vision, sensitivity to light - Lightheaded - Denies fever, chills, shortness of breath - Dry cough for 1 week with associated chest pain this morning over the left side of her chest, achy pain, no change with breathing, only occurs with coughing, does not radiate, /10 - Says she gets chest wall pain on and off - Experiencing lots of nausea Review of Systems See HPI for pertinent positives and negatives. A total of ten systems were reviewed and were otherwise negative. Past Medical/Surgical History Medical Problems: (1) Cervicalgia (2) Depression with anxiety (3) DM type 2 (diabetes mellitus, type 2) (4) Gastroparesis (5) GERD (gastroesophageal reflux disease) (6) IBS (irritable bowel syndrome) (7) Moderate persistent asthma (8) Obesity Surgical Problems: (1) H/O dilation and curettage (2) H/O: hysterectomy (3) History of tonsillectomy and adenoidectomy (4) History of tubal ligation Social History Problems: (1) Herpes simplex Family History FH: cancer FATHER Social History Smoking Status: Former Smoker Smokeless Tobacco Use: No Alcohol Use: none Drug Use: none Housing Status: lives with significant other Occupation Status: employed Current/Historical Medications Scheduled Amitriptyline HCl (Amitriptyline HCl), 100 MG PO HS Aspirin (Aspirin), 81 MG PO DAILY Atorvastatin (Lipitor), 80 MG PO DAILY Buspirone Hcl (Buspirone Hcl), 5 MG PO BID Dicyclomine Hcl (Dicyclomine Hcl), 10 MG PO QID Duloxetine HCl (Duloxetine HCl), 60 MG PO HS Esomeprazole Magnesium (Esomeprazole Magnesium), 40 MG PO QAM Ferrous Sulfate (Ferrous Sulfate), 325 MG PO TIDM Hydroxyzine Pamoate (Vistaril), 25 MG PO BID Insulin Glargine (Lantus Solostar), 5 UNITS SC HS Lisinopril (Lisinopril), 2.5 MG PO DAILY Melatonin (Melatonin), 10 MG PO HS Metformin HCl (Metformin HCl), 500 MG PO TID Metoclopramide Hcl (Reglan), 10 MG PO ACHS Montelukast Sod (Montelukast Sodium), 10 MG PO QAM Multivitamin (Multivitamin), 1 TAB PO DAILY Polyethylene (Polyethylene Glycol 3350), 17 GM PO QAM Potassium Gluconate (Potassium Gluconate), 1,190 MG PO DAILY Ranitidine HCl (Ranitidine HCl), 150 MG PO HS Senna/Docusate Sod (Senokot S), 1 TAB PO QAM Sucralfate (Sucralfate), 1 GM PO ACHS Tolterodine Tartrate (Tolterodine Tartrate), 2 MG PO BID Scheduled PRN Acetaminophen (Tylenol), 1,000 MG PO UD PRN for Pain or Fever Carisoprodol (Soma), 350 MG PO TID PRN for Pain Diphenhydramine Hcl (Diphenhydramine Hcl), 25-50 MG PO Q4-6HRS PRN for Itching Fluticasone Prop/Salmeterol (Advair Diskus 500/50 60 Dose), 1 PUFF INH BID PRN for Shortness of Breath Fluticasone Propionate (Fluticasone Propionate), 2 SPRAYS JG DAILY PRN for Allergy Symptoms Hydrocortisone (Topical) (Hydrocortisone), 1 APPLN TOP UD PRN for Itching Ibuprofen (Ibuprofen), 800 MG PO Q8 PRN for Pain Ipratropium-Albuterol (Duoneb), 1 TREATMENT INH BID PRN for SOB/Wheezing Naproxen (Aleve), 440 MG PO Q12 PRN for Pain Promethazine HCl (Promethazine HCl), 25 MG PO Q6H PRN for Nausea Valacyclovir HCl (Valacyclovir HCl), 500 MG PO TID PRN for Outbreaks Allergies Coded Allergies: Hydromorphone (Verified Allergy, Severe, itching, 01/22/17) Ondansetron (Verified Allergy, Intermediate, hives; RASH, 01/22/17) Sulfa Antibiotics (Verified Allergy, Intermediate, rash, 01/22/17) Aminoglycosides (Verified Allergy, Unknown, >, 01/22/17) Bacitracin (Verified Allergy, Unknown, >, 01/22/17) Ceftriaxone (Verified Allergy, Unknown, Rash, hives and itchiness., ) Cephalexin (Unverified Allergy, Unknown, hives, 01/22/17) Latex1 -Allergic Contact Dermititis (Verified Allergy, Unknown, 01/22/17) Neomycin (Verified Allergy, Unknown, >, 01/22/17) Polymyxin B (Verified Allergy, Unknown, >, 01/22/17) Sulfamethoxazole w/Trimethoprim (Verified Allergy, Unknown, Unknown, ) Physical Exam Vital Signs Date Time Temp Pulse Resp B/P Pulse Ox O2 Delivery O2 Flow Rate FiO2 03/10/17 19:55 36.4 92 16 122/83 95 Room Air Physical Exam GENERAL: Awake, alert, well-appearing, in mild distress HENT: Normocephalic, atraumatic. Oropharynx unremarkable. Mild tenderness over frontal sinus EYES: Normal conjunctiva. Sclera non-icteric. PERRL. EOMI NECK: Supple. No nuchal rigidity. RESPIRATORY: Clear to auscultation. CARDIAC: Regular rate, normal rhythm. Extremities warm and well perfused. Pulses equal. ABDOMEN: Soft, non-distended. No tenderness to palpation. No rebound or guarding. No masses. RECTAL: Deferred. MUSCULOSKELETAL: Chest examination reveals mild tenderness over the left side of the chest. The back is symmetrical on inspection without obvious abnormality. There is no CVA tenderness to palpation. No joint edema. LOWER EXTREMITIES: Calves are equal size bilaterally and non-tender. No edema. No discoloration. NEURO: Normal sensorium. No sensory or motor deficits noted. SKIN: No rash or jaundice noted. Medical Decision & Procedures Medical Decision Patient presents with 1 days history of migraine headache - Patient has chronic migraines treated with botox injections and breakthrough migraines usually well controlled with Excedrin - Patient treated with Morphine and Phenergan - Migraine resolved with treatment - Instructed to take Excedrin as needed for further migraines Impression Primary Impression: Migraine Departure Information Dispostion Home / Self-Care Condition GOOD Referrals Cipriano Peña M.D. (MEDICAL) (PCP) Patient Instructions My [facility] Problem Qualifiers Primary Impression: Migraine Migraine type: unspecified Status migrainosus presence: without status migrainosus Intractability: not intractable Qualified Codes: G43.909 - Migraine, unspecified, not intractable, without status migrainosus
[2017-03-10 20:39] VITALS: BP 118/78; PULSE 88; TEMP 36.4; O2SAT 95
[2017-09-22] MEDS ORDERED: DTR/5 PO (14:15)
[2017-09-22] MEDS ORDERED: PROM25TA16 PO (14:59)
[2017-09-22] MEDS ORDERED: POTA1TAB PO (15:03)
[2017-09-22] MEDS ORDERED: ASPI1TAB83 PO (15:29)
[2017-09-22] MEDS ORDERED: MULT-506 PO (15:53)
[2017-09-22] MEDS ORDERED: CYM60 PO (15:56)
[2017-09-22] MEDS ORDERED: MRLP527 PO (15:56)
[2017-09-22] MEDS ORDERED: RANI150T2 PO (15:56)
[2017-09-22] MEDS ORDERED: SUCR1TAB PO (15:56)
[2017-09-22] MEDS ORDERED: ADVIN50/60 INH (16:10)
[2017-09-22] MEDS ORDERED: BUSP5TAB59 PO (16:26)
[2017-09-22] MEDS ORDERED: GLC500 PO (16:26)
[2017-09-22] MEDS ORDERED: ESTCR PV (18:18)
[2017-09-22] MEDS ORDERED: SNG10 PO (19:14)
[2017-09-22] MEDS ORDERED: HYDR1CAP85 PO (19:14)
[2017-09-22] MEDS ORDERED: MELA1CAP9 PO (19:14)
== END 2017-03-10 20:45 | disposition home or self-care (01) ==
LOC: C.EDB 19:50
DX: G43.909 Migraine, unspecified, not intractable, without status migrainosus (principal); E11.9 Type 2 diabetes mellitus without complications; F41.8 Other specified anxiety disorders; K21.9 Gastro-esophageal reflux disease without esophagitis; K58.9 Irritable bowel syndrome, unspecified; J45.40 Moderate persistent asthma, uncomplicated; K31.84 Gastroparesis; Z90.710 Acquired absence of both cervix and uterus; Z98.51 Tubal ligation status; Z98.890 Other specified postprocedural states; Z87.891 Personal history of nicotine dependence; Z79.82 Long term (current) use of aspirin; Z79.4 Long term (current) use of insulin; Z79.899 Other long term (current) drug therapy; Z88.2 Allergy status to sulfonamides; Z88.5 Allergy status to narcotic agent; Z88.8 Allergy status to other drugs, medicaments and biological substances; Z91.040 Latex allergy status; Z80.9 Family history of malignant neoplasm, unspecified

== ENCOUNTER 2017-03-13 10:44 | Inpatient (IN) | payer OTHER ==
[~2017-03-13] VITALS: Ht 154.9 cm; Wt 99.7 kg
[~2017-03-13 10:44] MED LIST changes: +ASPI-390 PO; -CARI350T28 PO; -HYDR0.5C TOP; -NAPR1TAB9 PO
[2017-03-13] MEDS ORDERED: PROMETHAZINE HCL INJ 25 MG/ML 1 ML VIAL IV STA (11:26)
[2017-03-13] MEDS ORDERED: SODIUM CHLORIDE 0.9% 1000ML 2,000 ML IV STA (11:26)
[2017-03-13] MEDS ORDERED: MoRPHine SULFATE 10 MG/ML CARP/VIAL IM STA (11:26)
[2017-03-13 11:32] LABS: BASO % 0.1 %; BASO ABS # 0.01 K/uL (0-0.2); COMPLETE YES; EOS % 0.8 %; IG% 0.3 %; LYMPH % 6.9 %; LYMPH ABS # 1.19 K/uL (1.2-3.4); MEAN CORPUSCULAR HEMOGLOBIN 29.2 pg (25-34); MEAN CORPUSCULAR HGB CONC 35.1 g/dl (32-36); MONO % 6.7 %; NEUT % 85.2 %; PLATELET COUNT 397 K/uL (130-400); RED BLOOD COUNT 5.18 M/uL (4.2-5.4); WHITE BLOOD COUNT 17.34 K/uL (4.8-10.8)
[2017-03-13 11:42] LABS: URINE APPEARANCE CLEAR (CLEAR); URINE BILIRUBIN NEG (NEG); URINE COLOR YELLOW; URINE EPITHELIAL CELL AUTO >30 /lpf (0-5); URINE NITRITE NEG (NEG); URINE PH 6.5 (4.5-7.5); URINE SPECIFIC GRAVITY 1.022 (1.000-1.030); UROBILINOGEN NEG (NEG); ZZUR CULT IF INDIC CLEAN CATCH NO
[2017-03-13 11:43] LABS: MANUAL MICROSCOPIC REQUIRED? NO; REVIEW REQ? NO
[2017-03-13] MEDS ORDERED: PROMETHAZINE HCL INJ 25 MG in SODIUM CHLORIDE 0.9% 50ML 50 ML IV SCH (11:45)
[2017-03-13] MEDS ORDERED: MoRPHine SULFATE 10 MG/ML CARP/VIAL IV STA (11:51)
[2017-03-13 11:53] LABS: CREATININE 0.82 mg/dl (0.60-1.20)
[2017-03-13 11:54] LABS: BUN/CREATININE RATIO 16.5 (10-20); POTASSIUM 3.7 mmol/L (3.5-5.1)
[2017-03-13] MEDS ORDERED: OPTIRAY 320 IV PRN (12:00)
--- NOTE | 2017-03-13 13:06 | DIAGNOSTIC IMAGING REPORT ---
CT OF THE ABDOMEN AND PELVIS WITH CONTRAST CLINICAL HISTORY: Lower abdominal pain, vomiting and leukocytosis. COMPARISON STUDY: CT of the abdomen and pelvis November 21, 2016 TECHNIQUE: Following IV administration of 120 mL of [id number]-320, axial images of the abdomen and pelvis were obtained from the lung bases to the proximal femurs. Images were reviewed in the axial, sagittal, and coronal planes. IV contrast was administered without complication. CT DOSE: 1251.07 mGy.cm FINDINGS: There is fatty infiltration of the liver. The spleen, adrenal glands, right kidney and pancreas are normal. There is a 2.4 cm left renal cyst. There is no hydronephrosis. The nephrograms are symmetric. No biliary or pancreatic ductal dilatation. The gallbladder is mildly distended. There is no pericholecystic infiltration. There is no evidence for a bowel obstruction. There is sigmoid diverticulosis without evidence for acute diverticulitis. No suspicious skeletal lesions are identified. The appendix is normal. IMPRESSION: 1. Sigmoid diverticulosis without evidence for acute diverticulitis. 2. Moderate gallbladder distention. No pericholecystic infiltration. This finding could be correlated with right upper quadrant pain. 3. Fatty liver. Electronically signed by: Mitchell Anderson M.D. 03/13/2017 1:04 PM Dictated Date/Time: 03/13/2017 12:36 PM
--- NOTE | 2017-03-13 14:00 | DIAGNOSTIC IMAGING REPORT ---
ABDOMINAL ULTRASOUND, RIGHT UPPER QUADRANT HISTORY: Right upper quadrant pain, nausea and vomiting. COMPARISON: Right upper quadrant ultrasound March 30, [address] of the abdomen and pelvis performed earlier today. FINDINGS: Increased hepatic echogenicity reflects fatty infiltration. Areas of fatty sparing within the gallbladder fossa are noted. The gallbladder is moderately distended. No gallstones are identified. There is no gallbladder wall thickening. There is no biliary ductal dilatation. The pancreatic body is normal. The head and tail are partially obscured. There is no right hydronephrosis. IMPRESSION: 1. Moderate gallbladder distention. No gallstones identified or gallbladder wall thickening. Possible sludge within the gallbladder. 2. Fatty liver. 3. No biliary ductal dilatation. Electronically signed by: Mitchell Anderson M.D. 03/13/2017 1:58 PM Dictated Date/Time: 03/13/2017 1:56 PM
[2017-03-13] MEDS ORDERED: SODIUM CHLORIDE 0.9% 1000ML 1,000 ML IV STA (14:14)
[2017-03-13] MEDS ORDERED: METOCLOPRAMIDE HCL INJ 5 MG/ML 2 ML VIAL IM STA (14:16)
--- NOTE | 2017-03-13 15:59 | EMERGENCY ROOM VISIT NOTE ---
History Report prepared by Tamera: Garret Perez Under the Supervision of: Dr. Александр Manzanares D.O. First contact with patient: 11:10 Chief Complaint: ABDOMINAL PAIN Stated Complaint: VOMITING, MIGRAINE, STOMACH PAIN History of Present Illness The patient is a 56 year old female who presents to the Emergency Room with complaints of a persistent illness that started last night. She says that has been vomiting and has a migraine. The patient has a history of migraines and abdominal pain. She says that she had a concussion a week and a half ago, and the pain of her current headache is around the same spot as where she had pain from her concussion. The patient says that she is nauseous and has back pain. She notes that she has had abdominal pain, but it is the typical abdominal pain for her. She describes her headache as sharp, stabbing and constant. The patient does say that this headache is worse and more constant than normal. She denies any fevers, cough, diarrhea, urinary symptoms, or weakness or numbness in her arms or legs. The patient says that the last time she ate was yesterday morning. Her last bowel movement was yesterday and it was normal. She notes that she has been watching her grandchildren, and they have been sick with vomiting and diarrhea, and one is still sick. She has a history of a hysterectomy. She still has her gallbladder and appendix. Source of History: patient Onset: Last night Position: other (global - illness) Timing: other (persistent) Associated Symptoms: + abdominal pain, + back pain, + headache, + nausea, + vomiting, No cough, No diarrhea, No fevers, No numbness (legs), No urinary symptoms, No weakness (legs) Note: No other associated symptoms noted. Review of Systems See HPI for pertinent positives & negatives. A total of 10 systems reviewed and were otherwise negative. Past Medical & Surgical Medical Problems: (1) Abdominal pain (2) Cervicalgia (3) Depression with anxiety (4) DM type 2 (diabetes mellitus, type 2) (5) Gastroparesis (6) GERD (gastroesophageal reflux disease) (7) IBS (irritable bowel syndrome) (8) Moderate persistent asthma (9) Obesity (10) Sepsis Surgical Problems: (1) H/O dilation and curettage (2) H/O: hysterectomy (3) History of tonsillectomy and adenoidectomy (4) History of tubal ligation Social History Problems: (1) Herpes simplex Family History FH: cancer FATHER Social History Smoking Status: Former Smoker Alcohol Use: none Drug Use: none Housing Status: lives with significant other Occupation Status: employed Current/Historical Medications Scheduled Amitriptyline HCl (Amitriptyline HCl), 100 MG PO HS Aspirin (Aspirin), 81 MG PO DAILY Atorvastatin (Lipitor), 80 MG PO DAILY Buspirone Hcl (Buspirone Hcl), 5 MG PO BID Dicyclomine Hcl (Dicyclomine Hcl), 10 MG PO QID Duloxetine HCl (Duloxetine HCl), 60 MG PO HS Esomeprazole Magnesium (Esomeprazole Magnesium), 40 MG PO QAM Ferrous Sulfate (Ferrous Sulfate), 325 MG PO TIDM Hydroxyzine Pamoate (Vistaril), 25 MG PO BID Insulin Glargine (Lantus Solostar), 5 UNITS SC HS Lisinopril (Lisinopril), 2.5 MG PO DAILY Melatonin (Melatonin), 10 MG PO HS Metformin HCl (Metformin HCl), 500 MG PO TID Metoclopramide Hcl (Reglan), 10 MG PO ACHS Montelukast Sod (Montelukast Sodium), 10 MG PO QAM Multivitamin (Multivitamin), 1 TAB PO DAILY Polyethylene (Polyethylene Glycol 3350), 17 GM PO QAM Potassium Gluconate (Potassium Gluconate), 1,190 MG PO DAILY Ranitidine HCl (Ranitidine HCl), 150 MG PO HS Senna/Docusate Sod (Senokot S), 1 TAB PO QAM Sucralfate (Sucralfate), 1 GM PO ACHS Tolterodine Tartrate (Tolterodine Tartrate), 2 MG PO BID Scheduled PRN Acetaminophen (Tylenol), 1,000 MG PO UD PRN for Pain or Fever Ayqaqdm-Dyjsvlrxkmqix-Vizwbaxg (Excedrin Migraine), 1 DOSE PO DIRECTED PRN for Migraine Diphenhydramine Hcl (Diphenhydramine Hcl), 25-50 MG PO Q4-6HRS PRN for Itching Fluticasone Prop/Salmeterol (Advair Diskus 500/50 60 Dose), 1 PUFF INH BID PRN for Shortness of Breath Fluticasone Propionate (Fluticasone Propionate), 2 SPRAYS JG DAILY PRN for Allergy Symptoms Ibuprofen (Ibuprofen), 800 MG PO Q8 PRN for Pain Ipratropium-Albuterol (Duoneb), 1 TREATMENT INH BID PRN for SOB/Wheezing Promethazine HCl (Promethazine HCl), 25 MG PO Q6H PRN for Nausea Valacyclovir HCl (Valacyclovir HCl), 500 MG PO TID PRN for Outbreaks Allergies Coded Allergies: Hydromorphone (Verified Allergy, Severe, itching, 03/13/17) Ondansetron (Verified Allergy, Intermediate, hives; RASH, 03/13/17) Sulfa Antibiotics (Verified Allergy, Intermediate, rash, 03/13/17) Aminoglycosides (Verified Allergy, Unknown, >, 03/13/17) Bacitracin (Verified Allergy, Unknown, >, 03/13/17) Ceftriaxone (Verified Allergy, Unknown, Rash, hives and itchiness., ) Cephalexin (Verified Allergy, Unknown, hives, 03/13/17) Latex1 -Allergic Contact Dermititis (Verified Allergy, Unknown, 03/13/17) Neomycin (Verified Allergy, Unknown, >, 03/13/17) Polymyxin B (Verified Allergy, Unknown, >, 03/13/17) Sulfamethoxazole w/Trimethoprim (Verified Allergy, Unknown, Unknown, ) Physical Exam Vital Signs Date Time Temp Pulse Resp B/P Pulse Ox O2 Delivery O2 Flow Rate FiO2 03/13/17 15:36 105 18 142/107 96 Room Air 03/13/17 14:09 102 16 127/88 94 Room Air 03/13/17 12:32 92 16 132/67 98 Room Air 03/13/17 11:01 36.7 120 20 134/47 96 Room Air Physical Exam GENERAL: sitting up in bed, disheveled, in no acute distress EYE EXAM: normal conjunctiva, PERRL and EOM's intact OROPHARYNX: no exudate, no erythema, lips, buccal mucosa, and tongue normal and mucous membranes are moist NECK: supple, no nuchal rigidity, no adenopathy, non-tender, negative Brudzinski 's LUNGS: Clear to auscultation. Normal chest wall mechanics HEART: no murmurs, S1 normal and S2 normal ABDOMEN: abdomen soft, non-tender, normo-active bowel sounds, no masses, no rebound or guarding. BACK: Back is symmetrical on inspection and there is no deformity, no midline tenderness, no CVA tenderness. SKIN: no rashes and no bruising UPPER EXTREMITIES: upper extremities are grossly normal. LOWER EXTREMITIES: No pitting edema. NEURO EXAM: Normal sensorium, cranial nerves II-XII intact, normal speech, no weakness of arms, no weakness of legs. No drift. Finger to nose intact. Gross sensation intact. Medical Decision & Procedures ER Provider Diagnostic Interpretation: Radiology results as stated below per my review and the radiologist's interpretation: CT OF THE ABDOMEN AND PELVIS WITH CONTRAST CLINICAL HISTORY: Lower abdominal pain, vomiting and leukocytosis. COMPARISON STUDY: CT of the abdomen and pelvis November 21, 2016 TECHNIQUE: Following IV administration of 120 mL of [id number]-320, axial images of the abdomen and pelvis were obtained from the lung bases to the proximal femurs. Images were reviewed in the axial, sagittal, and coronal planes. IV contrast was administered without complication. CT DOSE: 1251.07 mGy.cm FINDINGS: There is fatty infiltration of the liver. The spleen, adrenal glands, right kidney and pancreas are normal. There is a 2.4 cm left renal cyst. There is no hydronephrosis. The nephrograms are symmetric. No biliary or pancreatic ductal dilatation. The gallbladder is mildly distended. There is no pericholecystic infiltration. There is no evidence for a bowel obstruction. There is sigmoid diverticulosis without evidence for acute diverticulitis. No suspicious skeletal lesions are identified. The appendix is normal. IMPRESSION: 1. Sigmoid diverticulosis without evidence for acute diverticulitis. 2. Moderate gallbladder distention. No pericholecystic infiltration. This finding could be correlated with right upper quadrant pain. 3. Fatty liver. Electronically signed by: Mitchell Anderson M.D. 03/13/2017 1:04 PM Dictated Date/Time: 03/13/2017 12:36 PM ABDOMINAL ULTRASOUND, RIGHT UPPER QUADRANT HISTORY: Right upper quadrant pain, nausea and vomiting. COMPARISON: Right upper quadrant ultrasound March 30, [address] of the abdomen and pelvis performed earlier today. FINDINGS: Increased hepatic echogenicity reflects fatty infiltration. Areas of fatty sparing within the gallbladder fossa are noted. The gallbladder is moderately distended. No gallstones are identified. There is no gallbladder wall thickening. There is no biliary ductal dilatation. The pancreatic body is normal. The head and tail are partially obscured. There is no right hydronephrosis. IMPRESSION: 1. Moderate gallbladder distention. No gallstones identified or gallbladder wall thickening. Possible sludge within the gallbladder. 2. Fatty liver. 3. No biliary ductal dilatation. Electronically signed by: Mitchell Anderson M.D. 03/13/2017 1:58 PM Dictated Date/Time: 03/13/2017 1:56 PM Laboratory Results 03/13/17 11:20 Red Blood Count 5.18, Mean Corpuscular Volume 83.0, Mean Corpuscular Hemoglobin 29.2, Mean Corpuscular Hemoglobin Concent 35.1, Mean Platelet Volume 9.0, Neutrophils (%) (Auto) 85.2, Lymphocytes (%) (Auto) 6.9, Monocytes (%) (Auto) 6.7, Eosinophils (%) (Auto) 0.8, Basophils (%) (Auto) 0.1, Neutrophils # (Auto) 14.78, Lymphocytes # (Auto) 1.19, Monocytes # (Auto) 1.17, Eosinophils # (Auto) 0.14, Basophils # (Auto) 0.01 03/13/17 11:20 Test 03/13/17 11:15 03/13/17 11:20 03/13/17 15:46 Urine Color YELLOW Urine Appearance CLEAR (CLEAR) Urine pH 6.5 (4.5-7.5) Urine Specific [place] 1.022 (1.000-1.030) Urine Protein NEG (NEG) Urine Glucose (UA) NEG (NEG) Urine Ketones NEG (NEG) Urine Occult Blood NEG (NEG) Urine Nitrite NEG (NEG) Urine Bilirubin NEG (NEG) Urine Urobilinogen NEG (NEG) Urine Leukocyte Esterase SMALL (NEG) Urine WBC (Auto) 1-5 /hpf (0-5) Urine RBC (Auto) 0-4 /hpf (0-4) Urine Hyaline Casts (Auto) 1-5 /lpf (0-5) Urine Epithelial Cells (Auto) >30 /lpf (0-5) Urine Bacteria (Auto) NEG (NEG) White Blood Count 17.34 K/uL (4.8-10.8) Red Blood Count 5.18 M/uL (4.2-5.4) Hemoglobin 15.1 g/dL (12.0-16.0) Hematocrit 43.0 % (37-47) Mean Corpuscular Volume 83.0 fL (80-100) Mean Corpuscular Hemoglobin 29.2 pg (25-34) Mean Corpuscular Hemoglobin Concent 35.1 g/dl (32-36) Platelet Count 397 K/uL (130-400) Mean Platelet Volume 9.0 fL (7.4-10.4) Neutrophils (%) (Auto) 85.2 % Lymphocytes (%) (Auto) 6.9 % Monocytes (%) (Auto) 6.7 % Eosinophils (%) (Auto) 0.8 % Basophils (%) (Auto) 0.1 % Neutrophils # (Auto) 14.78 K/uL (1.4-6.5) Lymphocytes # (Auto) 1.19 K/uL (1.2-3.4) Monocytes # (Auto) 1.17 K/uL (0.11-0.59) Eosinophils # (Auto) 0.14 K/uL (0-0.5) Basophils # (Auto) 0.01 K/uL (0-0.2) RDW Standard Deviation 40.7 fL (36.4-46.3) RDW Coefficient of Variation 13.6 % (11.5-14.5) Immature Granulocyte % (Auto) 0.3 % Immature Granulocyte # (Auto) 0.05 K/uL (0.00-0.02) Anion Gap 10.0 mmol/L (3-11) Est Creatinine Clear Calc Drug Dose 79.6 ml/min Estimated GFR () 91.4 Estimated GFR (Non- 78.9 BUN/Creatinine Ratio 16.5 (10-20) Calcium Level 9.0 mg/dl (8.5-10.1) Total Bilirubin 0.4 mg/dl (0.2-1) Direct Bilirubin 0.1 mg/dl (0-0.2) Aspartate Amino Transf (AST/SGOT) 24 U/L (15-37) Alanine Aminotransferase (ALT/SGPT) 54 U/L (12-78) Alkaline Phosphatase 163 U/L (45-117) Total Protein 7.4 gm/dl (6.4-8.2) Albumin 3.7 gm/dl (3.4-5.0) Lipase 120 U/L (73-393) Laboratory results per my review. Medications Administered Medications (Trade) Dose Ordered Sig/Antony Route Start Time Stop Time Status Last Admin Dose Admin Sodium Chloride 2,000 ml @ 999 mls/hr Q2H1M STAT IV 03/13/17 11:26 03/13/17 13:26 DC 03/13/17 11:49 999 MLS/HR Promethazine HCl/ Sodium Chloride (Phenergan Inj/ Nss 50ml) 51 ml @ 204 mls/hr TODAY@1145 IV 03/13/17 11:45 03/13/17 12:00 DC 03/13/17 11:49 204 MLS/HR Morphine Sulfate 10 mg 10 mg NOW STAT IV 03/13/17 11:51 03/13/17 11:52 DC 03/13/17 11:55 10 MG Sodium Chloride (Nss 1000ml) 1,000 ml @ 999 mls/hr Q1H1M STAT IV 03/13/17 14:14 03/13/17 15:14 DC 03/13/17 14:36 999 MLS/HR Metoclopramide HCl (Reglan Inj) 5 mg NOW STAT IM 03/13/17 14:16 03/13/17 14:17 DC 03/13/17 14:16 5 MG ED Course ED COURSE: Vital signs were reviewed and showed tachycardic vitals. The patients medical record was reviewed The above diagnostic studies were performed and reviewed. ED treatments and interventions as stated above. 1118: The patient was evaluated in room B4B. A complete history and physical examination was performed. 1126: Ordered NSS 2000 ml @ 999 mls/hr IV. 1145: Ordered Promethazine HCl 25mg/Sodium Chloride 51 ml @ 204 mls/hr IV. 1151: Ordered Morphine Sulfate Inj 10 mg IV. 1410: I discussed the patient with Dr. Sylvester - [facility] - he will come down to see the patient. 1415: I reevaluated the patient and she is vomiting. 1416: Ordered Reglan Inj 5 mg IM. 1600: Upon reevaluation, the patient is comfortable.I discussed my findings with the patient and understands and agrees with the treatment plan. Based on the patients age, coexisting illnesses, exam and lab findings the decision to treat as an inpatient was made. The patient remained stable while under my care. The patient will be evaluated for further management. Medical Decision Differential diagnoses includes but is not limited to gastritis, peptic ulcer disease, GERD, gallbladder disease, pancreatitis, small bowel obstruction, acute coronary syndrome, pericarditis, ischemic bowel, irritable bowel disease, irritable bowel syndrome, appendicitis, diverticulitis, malignancy, hernia, urinary tract infection, torsion, /ectopic , perforation, trauma, infectious. Patient is a 48-year-old female who presents the ER for persistent nausea and vomiting associated with her typical headache. IV was established and she was given Phenergan, morphine, and Reglan with persistent vomiting. He is completely neurologically intact. Labs show leukocytosis of 17,000. CT of her abdomen shows a dilated and distended gallbladder without stones. All sound confirms sludge but no pericholecystic fluid. She has no tenderness in the right upper quadrant. I do favor this is likely a gastroenteritis but with her distended gallbladder and leukocytosis so she did with abdominal pain I consulted surgery. She was evaluated by general surgery who agrees that this likely gastroenteritis but he recommended observation. Patient was given 2 L normal saline and admitted to internal medicine. Consults Time Called: 1408 Consulting Physician: Dr. Sylvester - [facility] Returned Call: 1410 I discussed the patient [facility] - he will come down to see the patient. Additional Consults: Consulted Physician: Kaleb Additional Comments: They will evaluate her. Impression Primary Impression: Acute gastroenteritis Scribe Attestation The scribe's documentation has been prepared under my direction and personally reviewed by me in its entirety. I confirm that the note above accurately reflects all work, treatment, procedures, and medical decision making performed by me. Departure Information Referrals Cipriano Peña M.D. (MEDICAL) (PCP) Patient Instructions My [facility]
[2017-03-13 16:00] VITALS: O2SAT 96; Ht 154.9 cm; Wt 99.7 kg
[2017-03-13] MEDS ORDERED: GLUCOSE 40% GEL 15 GM TUBE PO PRN (16:45)
[2017-03-13] MEDS ORDERED: DEXTROSE 50% 50 ML SYR IV PRN (16:45)
[2017-03-13] MEDS ORDERED: GLUCOSE 10 TABS/TUBE PO PRN (16:45)
[2017-03-13] MEDS ORDERED: PROMETHAZINE HCL INJ 25 MG in SODIUM CHLORIDE 0.9% 50ML 50 ML IV PRN (16:45)
[2017-03-13] MEDS ORDERED: GLUCAGON FOR INJ 1 MG VIAL SQ PRN (16:45)
--- NOTE | 2017-03-13 16:51 | Surgery Consultation ---
Consultation Date of Consultation: March 13, 2017. Attending Physician: History of Present Illness 56 y/o female began with severe nausea and emesis last night.... also diffuse upper abdominal discomfort. she was babysitting her grandkids several days ago and they had similar symptoms. no diarrhea yet. Past Medical/Surgical History Medical Problems: (1) Abscess Status: Acute (2) Acute electrocardiogram changes Status: Acute (3) Acute exacerbation of chronic low back pain Status: Acute (4) Acute exacerbation of chronic low back pain Status: Acute (5) Acute gastroenteritis Status: Acute (6) Back pain Status: Acute (7) Chronic back pain Status: Acute (8) Chronic low back pain Status: Acute (9) Chronic lumbar radiculopathy Status: Acute (10) Chronic lumbar radiculopathy Status: Acute (11) Closed head injury Status: Acute (12) Constipation Status: Acute (13) Constipation Status: Acute (14) Dermatitis Status: Acute (15) Fall Status: Acute (16) Fall Status: Acute (17) Fall Status: Acute (18) Gastritis Status: Acute (19) Headache Status: Acute (20) Headache Status: Acute (21) Hip pain, bilateral Status: Acute (22) Knee pain Status: Acute (23) Left flank pain Status: Acute (24) Left flank pain Status: Acute (25) Left shoulder pain Status: Acute (26) Left sided chest pain Status: Acute (27) Leukocytosis Status: Acute (28) Lower back pain Status: Acute (29) Migraine Status: Acute (30) Musculoskeletal chest pain Status: Acute (31) Nausea Status: Acute (32) Nausea & vomiting Status: Acute (33) Nausea, vomiting, and diarrhea Status: Acute (34) Precordial chest pain Status: Acute (35) Precordial chest pain Status: Acute (36) Right hip pain Status: Acute (37) Sacral back pain Status: Acute (38) Sciatica of right side Status: Acute (39) Tension headache Status: Acute (40) Upper respiratory infection Status: Acute (41) Urinary tract infection Status: Acute (42) Urinary tract infection Status: Acute (43) Urticaria Status: Acute (44) Vomiting and diarrhea Status: Acute Family History FH: cancer FATHER Social History Smoking Status: Former Smoker Drug Use: none Housing Status: lives with significant other Occupation Status: employed Allergies Coded Allergies: Hydromorphone (Verified Allergy, Severe, itching, 03/13/17) Ondansetron (Verified Allergy, Intermediate, hives; RASH, 03/13/17) Sulfa Antibiotics (Verified Allergy, Intermediate, rash, 03/13/17) Aminoglycosides (Verified Allergy, Unknown, >, 03/13/17) Bacitracin (Verified Allergy, Unknown, >, 03/13/17) Ceftriaxone (Verified Allergy, Unknown, Rash, hives and itchiness., ) Cephalexin (Verified Allergy, Unknown, hives, 03/13/17) Latex1 -Allergic Contact Dermititis (Verified Allergy, Unknown, 03/13/17) Neomycin (Verified Allergy, Unknown, >, 03/13/17) Polymyxin B (Verified Allergy, Unknown, >, 03/13/17) Sulfamethoxazole w/Trimethoprim (Verified Allergy, Unknown, Unknown, ) Home Medications Scheduled Amitriptyline HCl (Amitriptyline HCl), 100 MG PO HS Aspirin (Aspirin), 81 MG PO DAILY Atorvastatin (Lipitor), 80 MG PO DAILY Buspirone Hcl (Buspirone Hcl), 5 MG PO BID Dicyclomine Hcl (Dicyclomine Hcl), 10 MG PO QID Duloxetine HCl (Duloxetine HCl), 60 MG PO HS Esomeprazole Magnesium (Esomeprazole Magnesium), 40 MG PO QAM Ferrous Sulfate (Ferrous Sulfate), 325 MG PO TIDM Hydroxyzine Pamoate (Vistaril), 25 MG PO BID Insulin Glargine (Lantus Solostar), 5 UNITS SC HS Lisinopril (Lisinopril), 2.5 MG PO DAILY Melatonin (Melatonin), 10 MG PO HS Metformin HCl (Metformin HCl), 500 MG PO TID Metoclopramide Hcl (Reglan), 10 MG PO ACHS Montelukast Sod (Montelukast Sodium), 10 MG PO QAM Multivitamin (Multivitamin), 1 TAB PO DAILY Polyethylene (Polyethylene Glycol 3350), 17 GM PO QAM Potassium Gluconate (Potassium Gluconate), 1,190 MG PO DAILY Ranitidine HCl (Ranitidine HCl), 150 MG PO HS Senna/Docusate Sod (Senokot S), 1 TAB PO QAM Sucralfate (Sucralfate), 1 GM PO ACHS Tolterodine Tartrate (Tolterodine Tartrate), 2 MG PO BID Scheduled PRN Acetaminophen (Tylenol), 1,000 MG PO UD PRN for Pain or Fever Qssbbdc-Azdofmpdhgrex-Rtbcfsic (Excedrin Migraine), 1 DOSE PO DIRECTED PRN for Migraine Diphenhydramine Hcl (Diphenhydramine Hcl), 25-50 MG PO Q4-6HRS PRN for Itching Fluticasone Prop/Salmeterol (Advair Diskus 500/50 60 Dose), 1 PUFF INH BID PRN for Shortness of Breath Fluticasone Propionate (Fluticasone Propionate), 2 SPRAYS JG DAILY PRN for Allergy Symptoms Ibuprofen (Ibuprofen), 800 MG PO Q8 PRN for Pain Ipratropium-Albuterol (Duoneb), 1 TREATMENT INH BID PRN for SOB/Wheezing Promethazine HCl (Promethazine HCl), 25 MG PO Q6H PRN for Nausea Valacyclovir HCl (Valacyclovir HCl), 500 MG PO TID PRN for Outbreaks Current Inpatient Medications Current Inpatient Medications Medications (Trade) Dose Ordered Sig/Antony Route Start Time Stop Time Status Last Admin Dose Admin Ioversol (Optiray 320) 125 ml UD PRN IV 03/13/17 12:00 03/17/17 11:59 Acetaminophen (Tylenol Tab) 650 mg Q4H PRN PO 03/13/17 16:30 04/12/17 16:29 Enoxaparin Sodium 40 mg 40 mg Q24H SQ 03/13/17 16:30 04/12/17 16:29 UNV Sodium Chloride (Nss 1000ml) 1,000 ml @ 100 mls/hr Q10H IV 03/13/17 16:45 04/12/17 16:44 UNV Insulin Aspart (novoLOG ASPART) SLIDING SCALE If C... ACHS SC 03/13/17 21:00 04/12/17 20:59 UNV Glucose (Glucose 40% Gel) 15-30 GRAMS 15 GRAMS... UD PRN PO 03/13/17 16:45 04/12/17 16:44 Glucose (Glucose Chew Tab) 4-8 Tablets 4 Tabl... UD PRN PO 03/13/17 16:45 04/12/17 16:44 Dextrose (Dextrose 50% 50ML Syringe) 25-50ML OF 50% DW IV FOR... UD PRN IV 03/13/17 16:45 04/12/17 16:44 Glucagon 1 mg 1 mg UD PRN SQ 03/13/17 16:45 04/12/17 16:44 Promethazine HCl/ Sodium Chloride (Phenergan Inj/ Nss 50ml) 51 ml @ 204 mls/hr Q6H PRN IV 03/13/17 16:45 04/12/17 16:44 UNV Metoclopramide HCl (Reglan Inj) 10 mg ACHS IV 03/13/17 21:00 04/12/17 20:59 UNV Review of Systems Constitutional: + sweats, + weakness Abdomen: + nausea, + pain, + vomiting Physical Exam Date Time Temp Pulse Resp B/P Pulse Ox O2 Delivery O2 Flow Rate FiO2 03/13/17 16:00 96 Room Air 03/13/17 15:36 105 18 142/107 96 Room Air 03/13/17 14:09 102 16 127/88 94 Room Air 03/13/17 12:32 92 16 132/67 98 Room Air 03/13/17 11:01 36.7 120 20 134/47 96 Room Air General Appearance: + mild distress Head: normocephalic, atraumatic Eyes: EOMI ENT: hearing grossly normal Neck: supple, no JVD Respiratory/Chest: normal breath sounds, no respiratory distress Abdomen/GI: soft, + tenderness, + distended Neurologic/Psych: alert, oriented x 3 Skin: normal color, no rash, + pertinent finding (poor turgor) Laboratory Results Last 24 Hours Test 03/13/17 11:15 03/13/17 11:20 03/13/17 16:29 Urine Color YELLOW Urine Appearance CLEAR Urine pH 6.5 Urine Specific [place] 1.022 Urine Protein NEG Urine Glucose (UA) NEG Urine Ketones NEG Urine Occult Blood NEG Urine Nitrite NEG Urine Bilirubin NEG Urine Urobilinogen NEG Urine Leukocyte Esterase SMALL Urine WBC (Auto) 1-5 /hpf Urine RBC (Auto) 0-4 /hpf Urine Hyaline Casts (Auto) 1-5 /lpf Urine Epithelial Cells (Auto) >30 /lpf Urine Bacteria (Auto) NEG White Blood Count 17.34 K/uL Red Blood Count 5.18 M/uL Hemoglobin 15.1 g/dL Hematocrit 43.0 % Mean Corpuscular Volume 83.0 fL Mean Corpuscular Hemoglobin 29.2 pg Mean Corpuscular Hemoglobin Concent 35.1 g/dl Platelet Count 397 K/uL Mean Platelet Volume 9.0 fL Neutrophils (%) (Auto) 85.2 % Lymphocytes (%) (Auto) 6.9 % Monocytes (%) (Auto) 6.7 % Eosinophils (%) (Auto) 0.8 % Basophils (%) (Auto) 0.1 % Neutrophils # (Auto) 14.78 K/uL Lymphocytes # (Auto) 1.19 K/uL Monocytes # (Auto) 1.17 K/uL Eosinophils # (Auto) 0.14 K/uL Basophils # (Auto) 0.01 K/uL RDW Standard Deviation 40.7 fL RDW Coefficient of Variation 13.6 % Immature Granulocyte % (Auto) 0.3 % Immature Granulocyte # (Auto) 0.05 K/uL Sodium Level 137 mmol/L Potassium Level 3.7 mmol/L Chloride Level 101 mmol/L Carbon Dioxide Level 26 mmol/L Anion Gap 10.0 mmol/L Blood Urea Nitrogen 14 mg/dl Creatinine 0.82 mg/dl Est Creatinine Clear Calc Drug Dose 79.6 ml/min Estimated GFR () 91.4 Estimated GFR (Non- 78.9 BUN/Creatinine Ratio 16.5 Random Glucose 156 mg/dl Calcium Level 9.0 mg/dl Total Bilirubin 0.4 mg/dl Direct Bilirubin 0.1 mg/dl Aspartate Amino Transf (AST/SGOT) 24 U/L Alanine Aminotransferase (ALT/SGPT) 54 U/L Alkaline Phosphatase 163 U/L Total Protein 7.4 gm/dl Albumin 3.7 gm/dl Lipase 120 U/L Assessment & Plan suspect gastroenteritis US/CT show distended gallbladder but no pericholecystic fluid or wall thickening which you would expect with 17,000 wbc hydrate. supportive care. will follow along.
[2017-03-13] MEDS ORDERED: MECL1TAB40 PO (16:58)
[2017-03-13] MEDS ORDERED: MELA1TAB5 PO (16:58)
[2017-03-13] MEDS ORDERED: LIDODERM (LIDOCAINE) PATCH 5% TD ONE (17:17)
[2017-03-13] MEDS ORDERED: DICYCLOMINE HCL 10 MG CAP PO PRN (17:30)
[2017-03-13] MEDS ORDERED: MECLIZINE HCL 12.5 MG TAB PO PRN (17:30)
[2017-03-13] MEDS ORDERED: ALBUT/IPRATROP 3MG/0.5MG NEB 3 ML VIAL INH PRN (17:30)
--- NOTE | 2017-03-13 18:00 | DIAGNOSTIC IMAGING REPORT ---
CHEST ONE VIEW PORTABLE HISTORY: cough, sepsis COMPARISON: Chest 01/04/2017. FINDINGS: Low lung volumes with mild elevation of the right hemidiaphragm, unchanged. No pleural effusions. No pneumothorax. The heart is normal in size. Increased markings within the right medial lung base likely represent crowding from the low lung lines. Otherwise, no focal lung consolidations to suggest pneumonia. No evidence for pulmonary edema. IMPRESSION: No significant change compared to the prior study. No acute process. Electronically signed by: Reg Anderson M.D. 03/13/2017 5:59 PM Dictated Date/Time: 03/13/2017 5:57 PM
--- NOTE | 2017-03-13 18:10 | History and Physical ---
History & Physical Date & Time of Service: March 13, 2017 at 17:23 Chief Complaint: Vomiting, Migraine, Stomach Pain Primary Care Physician: Cipriano Peña M.D. (MEDICAL) History of Present Illness Source: patient, clinic records This is a 56 year old female with PMH of asthma, DM type 2, HL, GERD, IBS, gastroparesis, depression, migraine headaches, and other problems listed below who presents to the ED with abdominal pain, nausea, and vomiting. Patient states symptoms started overnight around midnight. She reports "countless" episodes of vomiting which continued in the ER. She was unable to keep down pills, food, or drink this morning. She reports still feeling mildly nauseous although Phenergan and Reglan in the ER helped. Abdominal pain is sharp in RUQ. It is worse with supine position and improves if she lays on her left side. Denies diarrhea. Last BM was normal yesterday morning. Has occasional GERD. No GI bleeding. She admits to chills and fatigue. Patient reports her chronic low back pain is bothering her more than the abdominal pain. She receives steroid injections as an outpatient. Morphine 10 mg in the ER helped but requests something more for back pain. She reports headache with blurry vision since hitting her head on a litter box 1 week ago, states she had ER evaluation for it - but appears that was 1 month ago. She had been evaluated in the ER for closed head injury on 02/14/[address] head 02/27/17. She was also treated in ER 3 days ago for migraine with morphine and Phenergan. She has been taking Excedrin migraine at home which did not help today. She reports dry cough , sneezing, itchy watery eyes x 1 week. Has chronic tingling of bilateral hands and feet but no acute change. Has vertigo at times for which she takes meclizine. Denies fever, sore throat, chest pain, SOB, focal weakness. She recently took course of doxycycline for left groin abscess which improved. She reports babysitting her grandchildren who have been ill with vomiting. No recent travel. Past Medical/Surgical History Medical Problems: (1) Cervicalgia Status: Chronic (2) Depression with anxiety Status: Chronic (3) DM type 2 (diabetes mellitus, type 2) Status: Chronic (4) Gastroparesis Status: Chronic (5) GERD (gastroesophageal reflux disease) Status: Chronic (6) IBS (irritable bowel syndrome) Status: Chronic (7) Moderate persistent asthma Status: Chronic (8) Obesity Status: Chronic Surgical Problems: (1) H/O dilation and curettage Status: Chronic (2) H/O: hysterectomy Permanent Comment: COURT with SBO performed by Dr. Tanner 2007 Status: Chronic (3) History of tonsillectomy and adenoidectomy Status: Chronic (4) History of tubal ligation Status: Chronic Social History Problems: (1) Herpes simplex Status: Resolved Family History FH: cancer FATHER Social History Smoking Status: Former Smoker Alcohol Use: none Drug Use: none Occupational Status: employed Immunizations History of Influenza Vaccine: Yes Influenza Vaccine Date: Jul 21, 2016 History of Tetanus Vaccine?: Yes Tetanus Immunization Date: Jan 30, 2014 History of Pneumococcal: Yes Pneumococcal Date: March 03, 2009 History of Hepatitis B Vaccine: Yes Hepatitis Immunization Date: March 27, 1998 Multi-Drug Resistant Organisms History of MDRO: No Allergies Coded Allergies: Hydromorphone (Verified Allergy, Severe, itching, 03/13/17) Ondansetron (Verified Allergy, Intermediate, hives; RASH, 03/13/17) Sulfa Antibiotics (Verified Allergy, Intermediate, rash, 03/13/17) Aminoglycosides (Verified Allergy, Unknown, >, 03/13/17) Bacitracin (Verified Allergy, Unknown, >, 03/13/17) Ceftriaxone (Verified Allergy, Unknown, Rash, hives and itchiness., ) Cephalexin (Verified Allergy, Unknown, hives, 03/13/17) Latex1 -Allergic Contact Dermititis (Verified Allergy, Unknown, 03/13/17) Neomycin (Verified Allergy, Unknown, >, 03/13/17) Polymyxin B (Verified Allergy, Unknown, >, 03/13/17) Sulfamethoxazole w/Trimethoprim (Verified Allergy, Unknown, Unknown, ) Home Medications Scheduled Amitriptyline HCl (Amitriptyline HCl), 100 MG PO HS Aspirin (Aspirin), 81 MG PO DAILY Atorvastatin (Lipitor), 80 MG PO DAILY Buspirone Hcl (Buspirone Hcl), 5 MG PO BID Duloxetine HCl (Duloxetine HCl), 60 MG PO DAILY Esomeprazole Magnesium (Esomeprazole Magnesium), 40 MG PO QAM Ferrous Sulfate (Ferrous Sulfate), 325 MG PO TIDM Fluticasone Prop/Salmeterol (Advair Diskus 500/50 60 Dose), 1 PUFF INH BID Fluticasone Propionate (Fluticasone Propionate), 1 SPRAYS JG BID Hydroxyzine Pamoate (Vistaril), 25 MG PO BID Insulin Glargine (Lantus Solostar), 5 UNITS SC HS Lisinopril (Lisinopril), 2.5 MG PO DAILY Metformin HCl (Metformin HCl), 500 MG PO TID Metoclopramide Hcl (Reglan), 10 MG PO ACHS Multivitamin (Multivitamin), 1 TAB PO DAILY Polyethylene (Polyethylene Glycol 3350), 17 GM PO QAM Potassium Gluconate (Potassium Gluconate), 1,190 MG PO DAILY Ranitidine HCl (Ranitidine HCl), 150 MG PO HS Senna/Docusate Sod (Senokot S), 1 TAB PO QAM Sucralfate (Sucralfate), 1 GM PO ACHS Tolterodine Tartrate (Tolterodine Tartrate), 2 MG PO BID Scheduled PRN Ymsxkqo-Rgpinynbdojlp-Kzzjojmw (Excedrin Migraine), 1 DOSE PO DIRECTED PRN for Migraine Dicyclomine Hcl (Dicyclomine Hcl), 10 MG PO QID PRN for Pain Ipratropium-Albuterol (Duoneb), 1 TREATMENT INH QID PRN for SOB/Wheezing Meclizine HCl (Meclizine HCl), 1 TAB PO TID PRN for Dizziness or Vertigo Melatonin (Kp Melatonin), 1-2 TABS PO HS PRN for Insomnia Promethazine HCl (Promethazine HCl), 25 MG PO Q6H PRN for Nausea Valacyclovir HCl (Valacyclovir HCl), 500 MG PO TID PRN for Outbreaks Review of Systems Ten systems reviewed and negative except as noted in above HPI. Physical Exam Vital Signs Date Time Temp Pulse Resp B/P Pulse Ox O2 Delivery O2 Flow Rate FiO2 03/13/17 16:51 103 16 157/107 95 Room Air 03/13/17 16:00 96 Room Air 03/13/17 15:36 105 18 142/107 96 Room Air 03/13/17 14:09 102 16 127/88 94 Room Air 03/13/17 12:32 92 16 132/67 98 Room Air 03/13/17 11:01 36.7 120 20 134/47 96 Room Air General Appearance: + obese, + pertinent finding (alert 56 year old female, lying in bed, no distress) Head: normocephalic, atraumatic Eyes: normal inspection, PERRL, EOMI ENT: hearing grossly normal, pharynx normal Neck: supple, trachea midline Respiratory/Chest: lungs clear, normal breath sounds, no respiratory distress, no accessory muscle use Cardiovascular: no murmur, + tachycardia (rate 90s, regular) Abdomen/GI: normal bowel sounds, soft, + pertinent finding (mildly distended but soft. moderate tenderness in RUQ and mild tenderness in epigastrium. em' s sign negative. no guarding. ) Back: + pertinent finding (lumbar paraspinal tenderness to palpation bilateraly ) Extremities/Musculoskelatal: no calf tenderness, no pedal edema Neurologic/Psych: alert, normal mood/affect, oriented x 3, + pertinent finding (no facial droop, no dysarthria, strength 5/5 all extremities) Skin: normal color, warm/dry, + pertinent finding (healing lesion in left groin. no fluctuance, tenderness, erythema or drainage. ) Diagnostics Laboratory Results Results Past 24 Hours Test 03/13/17 11:15 03/13/17 11:20 03/13/17 16:29 Range/Units Urine Color YELLOW Urine Appearance CLEAR CLEAR Urine pH 6.5 4.5-7.5 Urine Specific [place] 1.022 1.000-1.030 Urine Protein NEG NEG Urine Glucose (UA) NEG NEG Urine Ketones NEG NEG Urine Occult Blood NEG NEG Urine Nitrite NEG NEG Urine Bilirubin NEG NEG Urine Urobilinogen NEG NEG Urine Leukocyte Esterase SMALL NEG Urine WBC (Auto) 1-5 0-5 /hpf Urine RBC (Auto) 0-4 0-4 /hpf Urine Hyaline Casts (Auto) 1-5 0-5 /lpf Urine Epithelial Cells (Auto) >30 0-5 /lpf Urine Bacteria (Auto) NEG NEG White Blood Count 17.34 4.8-10.8 K/uL Red Blood Count 5.18 4.2-5.4 M/uL Hemoglobin 15.1 12.0-16.0 g/dL Hematocrit 43.0 37-47 % Mean Corpuscular Volume 83.0 80-100 fL Mean Corpuscular Hemoglobin 29.2 25-34 pg Mean Corpuscular Hemoglobin Concent 35.1 32-36 g/dl Platelet Count 397 130-400 K/uL Mean Platelet Volume 9.0 7.4-10.4 fL Neutrophils (%) (Auto) 85.2 % Lymphocytes (%) (Auto) 6.9 % Monocytes (%) (Auto) 6.7 % Eosinophils (%) (Auto) 0.8 % Basophils (%) (Auto) 0.1 % Neutrophils # (Auto) 14.78 1.4-6.5 K/uL Lymphocytes # (Auto) 1.19 1.2-3.4 K/uL Monocytes # (Auto) 1.17 0.11-0.59 K/uL Eosinophils # (Auto) 0.14 0-0.5 K/uL Basophils # (Auto) 0.01 0-0.2 K/uL RDW Standard Deviation 40.7 36.4-46.3 fL RDW Coefficient of Variation 13.6 11.5-14.5 % Immature Granulocyte % (Auto) 0.3 % Immature Granulocyte # (Auto) 0.05 0.00-0.02 K/uL Sodium Level 137 136-145 mmol/L Potassium Level 3.7 3.5-5.1 mmol/L Chloride Level 101 98-107 mmol/L Carbon Dioxide Level 26 21-32 mmol/L Anion Gap 10.0 3-11 mmol/L Blood Urea Nitrogen 14 7-18 mg/dl Creatinine 0.82 0.60-1.20 mg/dl Est Creatinine Clear Calc Drug Dose 79.6 ml/min Estimated GFR () 91.4 Estimated GFR (Non- 78.9 BUN/Creatinine Ratio 16.5 10-20 Random Glucose 156 70-99 mg/dl Calcium Level 9.0 8.5-10.1 mg/dl Total Bilirubin 0.4 0.2-1 mg/dl Direct Bilirubin 0.1 0-0.2 mg/dl Aspartate Amino Transf (AST/SGOT) 24 15-37 U/L Alanine Aminotransferase (ALT/SGPT) 54 12-78 U/L Alkaline Phosphatase 163 45-117 U/L Total Protein 7.4 6.4-8.2 gm/dl Albumin 3.7 3.4-5.0 gm/dl Lipase 120 73-393 U/L Lactic Acid Level 1.2 0.4-2.0 mmol/L Microbiology Results 03/13/17 Blood Culture, Received Pending 03/13/17 Blood Culture, Received Pending Diagnostic Radiology CT OF THE ABDOMEN AND PELVIS WITH CONTRAST CLINICAL HISTORY: Lower abdominal pain, vomiting and leukocytosis. COMPARISON STUDY: CT of the abdomen and pelvis November 21, 2016 TECHNIQUE: Following IV administration of 120 mL of Optiray-320, axial images of the abdomen and pelvis were obtained from the lung bases to the proximal femurs. Images were reviewed in the axial, sagittal, and coronal planes. IV contrast was administered without complication. CT DOSE: 1251.07 mGy.cm FINDINGS: There is fatty infiltration of the liver. The spleen, adrenal glands, right kidney and pancreas are normal. There is a 2.4 cm left renal cyst. There is no hydronephrosis. The nephrograms are symmetric. No biliary or pancreatic ductal dilatation. The gallbladder is mildly distended. There is no pericholecystic infiltration. There is no evidence for a bowel obstruction. There is sigmoid diverticulosis without evidence for acute diverticulitis. No suspicious skeletal lesions are identified. The appendix is normal. IMPRESSION: 1. Sigmoid diverticulosis without evidence for acute diverticulitis. 2. Moderate gallbladder distention. No pericholecystic infiltration. This finding could be correlated with right upper quadrant pain. 3. Fatty liver. ABDOMINAL ULTRASOUND, RIGHT UPPER QUADRANT HISTORY: Right upper quadrant pain, nausea and vomiting. COMPARISON: Right upper quadrant ultrasound March 30, [address] of the abdomen and pelvis performed earlier today. FINDINGS: Increased hepatic echogenicity reflects fatty infiltration. Areas of fatty sparing within the gallbladder fossa are noted. The gallbladder is moderately distended. No gallstones are identified. There is no gallbladder wall thickening. There is no biliary ductal dilatation. The pancreatic body is normal. The head and tail are partially obscured. There is no right hydronephrosis. IMPRESSION: 1. Moderate gallbladder distention. No gallstones identified or gallbladder wall thickening. Possible sludge within the gallbladder. 2. Fatty liver. 3. No biliary ductal dilatation. EKG sinus tachycardia, 104 bpm, nonspecific T wave abnormality V2 and V3, no significant change from prior EKG Impression Assessment and Plan ABDOMINAL PAIN with VOMITING Likely due to acute gastroenteritis Meets SIRS criteria due to tachycardia (possibly from pain and/or dehydration) and leukocytosis (WBC 17K); however does not appear septic- afebrile, lactic acid WNL, no hypotension; blood cultures pending CT a/p- sigmoid diverticulosis without diveriticulitis, moderate gallbladder distension, no pericholecystic inflammation, fatty liver Gallbladder US- moderate GB distension, no gallstones or GB wall thickening, ? sludge within GB, fatty liver, no biliary ductal dilatation Alk phos elevated to 163, other LFT's and lipase WNL Consult general surgery; discussed case with Dr. Sylvester who saw patient in ER ; appreciate input; gastroenteritis suspected, does not appear to have cholecystitis Supportive care with IVF's, antiemetics- Phenergan, pain control- PRN Toradol On Reglan for gastroparesis- will hold until she is tolerating PO Clear liquid diet LEUKOCYTOSIS Possibly due to gastroenteritis and/ or dehydration UA does not appear infected CXR- no acute findings Recheck CBC in am HEADACHE History of chronic migraine headaches Multiple recent ER visits- 02/14/17 for closed head injury, 03/10/[address] head 02/27/17 unremarkable Try PRN Toradol Continue amitriptyline CHRONIC BACK PAIN Try PRN Toradol, lidocaine patch, heat application DM TYPE 2 Hold metformin during hospitalization Hold Lantus due to poor PO intake Insulin sliding scale coverage ASTHMA Not in acute exacerbation Continue home inhalers HYPERTENSION BP is stable Continue lisinopril DYSLIPIDEMIA Continue statin DEPRESSION Continue home medications GERD Continue PPI and H2 chilo DVT PROPHYLAXIS Lovenox SQ FULL CODE DISPOSITION Admission to telemetry Follows with Dr. Peña for primary care Patient seen in collaboration with Dr. Simpson. Please see her addendum. I have seen and evaluated the patient and discussed w the provider above. She is up on the floor and is already tolerating PO after only 2-3 hours on the floor. I agree there is some gastritis likely causing symptoms with her grandchildren recently with her and ill with same symptoms, keeping them out of school for a week per her report. It appears to be already improving. Her physical exam is unremarkable aside from the fact that she appears older than her stated age and is morbidly obese. She is even tolerating iron pills at this time. Appreciate surgery input regarding gallbladder thickening. Uncertain where her WBC came from but will trend and monitor her for fevers, chills or other signs of infection. This h/o frequent falls at home is concerning. According to the records she had several head injuries in the last couple of months, including falling backward and striking her head on the bathtub (n oLOC), hitting her head on a car door (no LOC per ER report), then the following week she reported falling and hitting her head on a litter box and blacked out for 2-[address] head was negative for acute intracranial injury and the patient denied to me any continuation of symptoms since that time. She did state that she got a migraine one week ago that is still mildly present, and she denies any visual changes. Will ensure PT/OT eval and she should likely be followed by Case Management as outpatient. Cont supportive care per plan as stated above. Calvin, Level of Care Med/Surg Advanced Directives Existing Living Will: Yes Existing Power of Bed Placement Coordinator: Yes Resuscitation Status FULL RESUSCITATION VTE Prophylaxis VTE Risk Assessment Done? Y/N: Yes Risk Level: Moderate Given or contraindicated: Enoxaparin (Lovenox)SQ
[2017-03-13] MEDS: SODIUM CHLORIDE 0.9% 1000ML 1,000 ML IV SCH (18:22)
[2017-03-13] MEDS: KETOROLAC TROMETHAMINE 30 MG/ML VIAL IV PRN (18:22)
[2017-03-13 19:13] VITALS: BP 131/84; PULSE 109; TEMP 36.3; O2SAT 91
[2017-03-13 19:22] VITALS: BP 139/87; PULSE 97; TEMP 37; O2SAT 95
[2017-03-13 19:49] LABS: PARTIAL THROMBOPLASTIN RATIO 1.1; PROTHROMBIN TIME (PATIENT) 10.8 SECONDS (9.0-12.0)
[2017-03-13] MEDS: FERROUS SULFATE 325 MG TAB PO SCH (19:51)
[2017-03-13] MEDS ORDERED: hydrOXYzine HCL 25 MG TAB PO SCH (21:00)
[2017-03-13] MEDS: INSULIN ASPART 100 UNITS/ML 3 ML PEN SC SCH (21:00)
[2017-03-13] MEDS ORDERED: METOCLOPRAMIDE HCL INJ 5 MG/ML 2 ML VIAL IV SCH (21:00)
[2017-03-13] MEDS: FLUTICASONE/SALMETEROL (ADVAIR) 500/50 INH 14 PUFF INH SCH (21:17)
[2017-03-13] MEDS: FLUTICASONE PROPIONATE NA SPR 16 GM BTL NAE SCH (21:18)
[2017-03-13] MEDS: ENOXAPARIN 40 MG/0.4 ML SYR SQ SCH (21:18)
[2017-03-13] MEDS: RANITIDINE HCL 150 MG TAB PO SCH (21:20)
[2017-03-13] MEDS: hydrOXYzine HCL 25 MG TAB PO SCH (21:20)
[2017-03-13] MEDS: TOLTERODINE TARTRATE 2 MG TAB PO SCH (21:20)
[2017-03-13] MEDS: SUCRALFATE 1 GM TAB PO SCH (21:20)
[2017-03-13] MEDS: AMITRIPTYLINE HCL 100 MG TAB PO SCH (21:21)
[2017-03-13 23:46] VITALS: BP_SYST 125; BP_SYST 126; BP_SYST 127; BP_DIAS 77; BP_DIAS 88; PULSE 77; PULSE 91; TEMP 36; TEMP 36.7; TEMP 37.2; O2SAT 95; O2SAT 96
[2017-03-14] MEDS: SODIUM CHLORIDE 0.9% 1000ML 1,000 ML IV SCH ×2 (04:04→13:42)
[2017-03-14 04:09] VITALS: BP 126/74; PULSE 92; TEMP 37.4; O2SAT 94
[2017-03-14] MEDS: SUCRALFATE 1 GM TAB PO SCH ×4 (06:29→20:38)
[2017-03-14] MEDS: ACETAMINOPHEN 325 MG TAB PO PRN ×2 (06:29→12:56)
[2017-03-14 06:55] LABS: HEMATOCRIT 34.4 % (37-47); MEAN CELL VOLUME 83.5 fL (80-100); MEAN CORPUSCULAR HEMOGLOBIN 27.7 pg (25-34); MEAN CORPUSCULAR HGB CONC 33.1 g/dl (32-36); MEAN PLATELET VOLUME 8.8 fL (7.4-10.4); PLATELET COUNT 304 K/uL (130-400); RED BLOOD COUNT 4.12 M/uL (4.2-5.4)
[2017-03-14 07:51] VITALS: BP 122/79; PULSE 89; TEMP 37.2; O2SAT 94
[2017-03-14 08:02] LABS: ALKALINE PHOSPHATASE 113 U/L (45-117); ALT/SGPT 55 U/L (12-78); AST/SGOT 34 U/L (15-37); BUN/CREATININE RATIO 17.7 (10-20); CALCIUM 7.7 mg/dl (8.5-10.1); CARBON DIOXIDE 23 mmol/L (21-32); CHLORIDE 104 mmol/L (98-107); CREATININE 0.52 mg/dl (0.60-1.20); GLUCOSE 130 mg/dl (70-99); POTASSIUM 2.8 mmol/L (3.5-5.1); SODIUM 136 mmol/L (136-145)
[2017-03-14] MEDS ORDERED: POTASSIUM GLUCONATE PO SCH (09:00)
[2017-03-14] MEDS: FLUTICASONE PROPIONATE NA SPR 16 GM BTL NAE SCH ×2 (09:08→20:37)
[2017-03-14] MEDS: FLUTICASONE/SALMETEROL (ADVAIR) 500/50 INH 14 PUFF INH SCH ×2 (09:08→20:36)
[2017-03-14] MEDS: TOLTERODINE TARTRATE 2 MG TAB PO SCH ×2 (09:09→20:39)
[2017-03-14] MEDS: DULOXETINE HCL 60 MG CAP PO SCH (09:09)
[2017-03-14] MEDS: MULTIVITAMIN TAB PO SCH (09:10)
[2017-03-14] MEDS: ASPIRIN 81 MG ECTAB PO SCH (09:10)
[2017-03-14] MEDS: PANTOprazole SOD 40 MG TAB PO SCH (09:10)
[2017-03-14] MEDS: hydrOXYzine HCL 25 MG TAB PO SCH ×2 (09:10→20:38)
[2017-03-14] MEDS: ATORVASTATIN 40 MG TAB PO SCH (09:10)
[2017-03-14] MEDS: LISINOPRIL 2.5 MG TAB PO SCH (09:11)
[2017-03-14] MEDS: LIDODERM (LIDOCAINE) PATCH 5% TD SCH (09:13)
[2017-03-14] MEDS: FERROUS SULFATE 325 MG TAB PO SCH ×3 (09:14→16:49)
[2017-03-14] MEDS: INSULIN ASPART 100 UNITS/ML 3 ML PEN SC SCH ×4 (09:39→20:53)
[2017-03-14] MEDS: KETOROLAC TROMETHAMINE 30 MG/ML VIAL IV PRN ×2 (09:40→15:49)
[2017-03-14 09:54] LABS: BLOOD UREA NITROGEN 9 mg/dl (7-18)
--- NOTE | 2017-03-14 10:24 | Surgery Progress Note ---
Surgery Progress Note Date of Service March 14, 2017. Subjective + diet (clears), No bowel movement, No nausea Objective Vital Signs: Date Time Temp Pulse Resp B/P Pulse Ox O2 Delivery O2 Flow Rate FiO2 03/14/17 07:51 37.2 89 18 122/79 94 03/14/17 04:09 37.4 92 20 126/74 94 Room Air 03/14/17 04:00 Room Air 03/14/17 00:00 Room Air 03/13/17 23:46 36.0 91 18 125/77 95 Room Air 03/13/17 20:00 Room Air 03/13/17 19:22 37.0 97 20 139/87 95 Room Air 03/13/17 19:13 36.3 109 20 131/84 91 Room Air 03/13/17 18:01 100 20 157/84 97 03/13/17 16:51 103 16 157/107 95 Room Air 03/13/17 16:00 96 Room Air 03/13/17 15:36 105 18 142/107 96 Room Air 03/13/17 14:09 102 16 127/88 94 Room Air 03/13/17 12:32 92 16 132/67 98 Room Air 03/13/17 11:01 36.7 120 20 134/47 96 Room Air Abdomen: soft, + tenderness (mild generalized) Laboratory Results: Results Past 24 Hours Test 03/13/17 11:15 03/13/17 11:20 03/13/17 16:29 03/13/17 19:25 Range/Units Urine Color YELLOW Urine Appearance CLEAR CLEAR Urine pH 6.5 4.5-7.5 Urine Specific [place] 1.022 1.000-1.030 Urine Protein NEG NEG Urine Glucose (UA) NEG NEG Urine Ketones NEG NEG Urine Occult Blood NEG NEG Urine Nitrite NEG NEG Urine Bilirubin NEG NEG Urine Urobilinogen NEG NEG Urine Leukocyte Esterase SMALL NEG Urine WBC (Auto) 1-5 0-5 /hpf Urine RBC (Auto) 0-4 0-4 /hpf Urine Hyaline Casts (Auto) 1-5 0-5 /lpf Urine Epithelial Cells (Auto) >30 0-5 /lpf Urine Bacteria (Auto) NEG NEG White Blood Count 17.34 4.8-10.8 K/uL Red Blood Count 5.18 4.2-5.4 M/uL Hemoglobin 15.1 12.0-16.0 g/dL Hematocrit 43.0 37-47 % Mean Corpuscular Volume 83.0 80-100 fL Mean Corpuscular Hemoglobin 29.2 25-34 pg Mean Corpuscular Hemoglobin Concent 35.1 32-36 g/dl Platelet Count 397 130-400 K/uL Mean Platelet Volume 9.0 7.4-10.4 fL Neutrophils (%) (Auto) 85.2 % Lymphocytes (%) (Auto) 6.9 % Monocytes (%) (Auto) 6.7 % Eosinophils (%) (Auto) 0.8 % Basophils (%) (Auto) 0.1 % Neutrophils # (Auto) 14.78 1.4-6.5 K/uL Lymphocytes # (Auto) 1.19 1.2-3.4 K/uL Monocytes # (Auto) 1.17 0.11-0.59 K/uL Eosinophils # (Auto) 0.14 0-0.5 K/uL Basophils # (Auto) 0.01 0-0.2 K/uL RDW Standard Deviation 40.7 36.4-46.3 fL RDW Coefficient of Variation 13.6 11.5-14.5 % Immature Granulocyte % (Auto) 0.3 % Immature Granulocyte # (Auto) 0.05 0.00-0.02 K/uL Sodium Level 137 136-145 mmol/L Potassium Level 3.7 3.5-5.1 mmol/L Chloride Level 101 98-107 mmol/L Carbon Dioxide Level 26 21-32 mmol/L Anion Gap 10.0 3-11 mmol/L Blood Urea Nitrogen 14 7-18 mg/dl Creatinine 0.82 0.60-1.20 mg/dl Est Creatinine Clear Calc Drug Dose 79.6 ml/min Estimated GFR () 91.4 Estimated GFR (Non- 78.9 BUN/Creatinine Ratio 16.5 10-20 Random Glucose 156 70-99 mg/dl Calcium Level 9.0 8.5-10.1 mg/dl Total Bilirubin 0.4 0.2-1 mg/dl Direct Bilirubin 0.1 0-0.2 mg/dl Aspartate Amino Transf (AST/SGOT) 24 15-37 U/L Alanine Aminotransferase (ALT/SGPT) 54 12-78 U/L Alkaline Phosphatase 163 45-117 U/L Total Protein 7.4 6.4-8.2 gm/dl Albumin 3.7 3.4-5.0 gm/dl Lipase 120 73-393 U/L Lactic Acid Level 1.2 0.4-2.0 mmol/L Prothrombin Time 10.8 9.0-12.0 SECONDS Prothromb Time International Ratio 1.0 0.9-1.1 Activated Partial Thromboplast Time 27.8 21.0-31.0 SECONDS Partial Thromboplastin Ratio 1.1 Test 03/13/17 20:05 03/14/17 05:55 Range/Units Bedside Glucose 159 70-90 mg/dl White Blood Count 7.70 4.8-10.8 K/uL Red Blood Count 4.12 4.2-5.4 M/uL Hemoglobin 11.4 12.0-16.0 g/dL Hematocrit 34.4 37-47 % Mean Corpuscular Volume 83.5 80-100 fL Mean Corpuscular Hemoglobin 27.7 25-34 pg Mean Corpuscular Hemoglobin Concent 33.1 32-36 g/dl RDW Standard Deviation 41.7 36.4-46.3 fL RDW Coefficient of Variation 13.8 11.5-14.5 % Platelet Count 304 130-400 K/uL Mean Platelet Volume 8.8 7.4-10.4 fL Sodium Level 136 136-145 mmol/L Potassium Level 2.8 3.5-5.1 mmol/L Chloride Level 104 98-107 mmol/L Carbon Dioxide Level 23 21-32 mmol/L Anion Gap 9.0 3-11 mmol/L Blood Urea Nitrogen 9 7-18 mg/dl Creatinine 0.52 0.60-1.20 mg/dl Est Creatinine Clear Calc Drug Dose 127.6 ml/min Estimated GFR () 122.1 Estimated GFR (Non- 105.3 BUN/Creatinine Ratio 17.7 10-20 Random Glucose 130 70-99 mg/dl Calcium Level 7.7 8.5-10.1 mg/dl Total Bilirubin 0.4 0.2-1 mg/dl Direct Bilirubin < 0.1 0-0.2 mg/dl Aspartate Amino Transf (AST/SGOT) 34 15-37 U/L Alanine Aminotransferase (ALT/SGPT) 55 12-78 U/L Alkaline Phosphatase 113 45-117 U/L Total Protein 5.4 6.4-8.2 gm/dl Albumin 2.7 3.4-5.0 gm/dl Lipase 103 73-393 U/L Microbiology Results 03/13/17 Blood Culture, Received Pending 03/13/17 Blood Culture, Received Pending Assessment & Plan enteritis WBC down, tolerating clears doubt cholecystitis advance diet as fide addendum: as above. wbc down. will continue to follow along. cont supportive care.
--- NOTE | 2017-03-14 11:32 | Progress Note ---
Internal Med Progress Note Date of Service: March 14, 2017. Provider Documentation: SUBJECTIVE: seen and examined at bedside. States feeling better. Abd pain is improved. Denies nausea and vomiting. Headache resolved. Denies chest pain, SOB, diarrhea. offers no other complaints. OBJECTIVE: Vital Signs-as noted below Physical Exam: General Appearance:Moderately built and nourished, no apparent distress Head: normocephalic, Atraumatic Eyes: normal inspection, EOMI, PERRL Neck: supple, Trachea midline Respiratory/Chest: Normal breath sounds, CTA Cardiovascular: S1, S2, No murmur Abdomen/GI:Soft, mild tender RUQ, Bowel sounds present Extremities/Musculoskelatal:normal inspection, no edema Neurologic/Psych:AAOX3, grossly no focal neurological deficits Skin: normal color, warm Lab data as noted below. ASSESSMENT & PLAN: ABDOMINAL PAIN/VOMITING Likely acute gastroenteritis Leukocytosis resolved, lactic acid WNL Follow up blood cultures: pending CT ABD: sigmoid diverticulosis, moderate gallbladder distension, fatty liver Gallbladder USD: ? sludge, fatty liver Appreciate surgery input Continue Supportive care: IVF, antiemetics, pain control Resume Reglan when tolerating PO Clear liquid diet, Advance diet as tolerated HYPOKALEMIA: Secondary to Vomiting Replace and monitor HEADACHE H/O chronic migraine Multiple recent ER visits- 02/14/17 for closed head injury, 03/10/[address] head 02/27/17 unremarkable PRN Toradol, Continue amitriptyline CHRONIC BACK PAIN lidocaine patch, heat application DM II Hold metformin during hospitalization Hold Lantus due to poor PO intake ISS, accu checks ASTHMA Not in acute exacerbation Continue home inhalers HYPERTENSION stable Continue lisinopril DYSLIPIDEMIA Continue statin DEPRESSION Continue home meds GERD Continue PPI and H2 chilo DVT PX: Lovenox SQ CODE STATUS: FULL CODE DISPOSITION: Continue to monitor Follows with Dr. Peña Vital Signs: Date Time Temp Pulse Resp B/P Pulse Ox O2 Delivery O2 Flow Rate FiO2 03/14/17 07:51 37.2 89 18 122/79 94 03/14/17 04:09 37.4 92 20 126/74 94 Room Air 03/14/17 04:00 Room Air 03/14/17 00:00 Room Air 03/13/17 23:46 36.0 91 18 125/77 95 Room Air 03/13/17 20:00 Room Air 03/13/17 19:22 37.0 97 20 139/87 95 Room Air 03/13/17 19:13 36.3 109 20 131/84 91 Room Air 03/13/17 18:01 100 20 157/84 97 03/13/17 16:51 103 16 157/107 95 Room Air 03/13/17 16:00 96 Room Air 03/13/17 15:36 105 18 142/107 96 Room Air 03/13/17 14:09 102 16 127/88 94 Room Air 03/13/17 12:32 92 16 132/67 98 Room Air Lab Results: Results Past 24 Hours Test 03/13/17 16:29 03/13/17 19:25 03/13/17 20:05 03/14/17 05:55 Range/Units Lactic Acid Level 1.2 0.4-2.0 mmol/L Prothrombin Time 10.8 9.0-12.0 SECONDS Prothromb Time International Ratio 1.0 0.9-1.1 Activated Partial Thromboplast Time 27.8 21.0-31.0 SECONDS Partial Thromboplastin Ratio 1.1 Bedside Glucose 159 70-90 mg/dl White Blood Count 7.70 4.8-10.8 K/uL Red Blood Count 4.12 4.2-5.4 M/uL Hemoglobin 11.4 12.0-16.0 g/dL Hematocrit 34.4 37-47 % Mean Corpuscular Volume 83.5 80-100 fL Mean Corpuscular Hemoglobin 27.7 25-34 pg Mean Corpuscular Hemoglobin Concent 33.1 32-36 g/dl RDW Standard Deviation 41.7 36.4-46.3 fL RDW Coefficient of Variation 13.8 11.5-14.5 % Platelet Count 304 130-400 K/uL Mean Platelet Volume 8.8 7.4-10.4 fL Sodium Level 136 136-145 mmol/L Potassium Level 2.8 3.5-5.1 mmol/L Chloride Level 104 98-107 mmol/L Carbon Dioxide Level 23 21-32 mmol/L Anion Gap 9.0 3-11 mmol/L Blood Urea Nitrogen 9 7-18 mg/dl Creatinine 0.52 0.60-1.20 mg/dl Est Creatinine Clear Calc Drug Dose 127.6 ml/min Estimated GFR () 122.1 Estimated GFR (Non- 105.3 BUN/Creatinine Ratio 17.7 10-20 Random Glucose 130 70-99 mg/dl Calcium Level 7.7 8.5-10.1 mg/dl Total Bilirubin 0.4 0.2-1 mg/dl Direct Bilirubin < 0.1 0-0.2 mg/dl Aspartate Amino Transf (AST/SGOT) 34 15-37 U/L Alanine Aminotransferase (ALT/SGPT) 55 12-78 U/L Alkaline Phosphatase 113 45-117 U/L Total Protein 5.4 6.4-8.2 gm/dl Albumin 2.7 3.4-5.0 gm/dl Lipase 103 73-393 U/L Microbiology Results 03/13/17 Blood Culture, Received Pending 03/13/17 Blood Culture, Received Pending
[2017-03-14] MEDS: POTASSIUM CHLORIDE 20 MEQ TABCR PO SCH ×2 (12:55→20:41)
[2017-03-14] MEDS: POLYETHYLENE (MIRALAX) 17 GM PACK PO PRN (12:56)
[2017-03-14 14:18] VITALS: BP 116/74; PULSE 90; TEMP 36.7; O2SAT 95
[2017-03-14 15:43] VITALS: BP 128/80; PULSE 87; TEMP 36.8; O2SAT 94
[2017-03-14 20:21] VITALS: BP 145/76; PULSE 77; TEMP 36.7; O2SAT 96
[2017-03-14] MEDS: ENOXAPARIN 40 MG/0.4 ML SYR SQ SCH (20:36)
[2017-03-14] MEDS: RANITIDINE HCL 150 MG TAB PO SCH (20:38)
[2017-03-14] MEDS: AMITRIPTYLINE HCL 100 MG TAB PO SCH (20:39)
[2017-03-15 00:06] VITALS: BP_SYST 122; BP_SYST 137; BP_DIAS 56; BP_DIAS 83; PULSE 55; PULSE 76; TEMP 36.3; O2SAT 95; O2SAT 97
[2017-03-15] MEDS: SODIUM CHLORIDE 0.9% 1000ML 1,000 ML IV SCH ×2 (00:33→09:21)
[2017-03-15 04:15] VITALS: BP 144/89; PULSE 80; TEMP 36.5; O2SAT 98
[2017-03-15] MEDS: SUCRALFATE 1 GM TAB PO SCH ×2 (06:23→11:34)
[2017-03-15 06:46] LABS: BASO % 0.2 %; BASO ABS # 0.01 K/uL (0-0.2); COMPLETE YES; EOS % 3.1 %; HEMATOCRIT 32.8 % (37-47); IG% 0.3 %; LYMPH % 44.3 %; LYMPH ABS # 2.54 K/uL (1.2-3.4); MEAN CELL VOLUME 84.8 fL (80-100); MEAN CORPUSCULAR HEMOGLOBIN 28.7 pg (25-34); MEAN CORPUSCULAR HGB CONC 33.8 g/dl (32-36); MEAN PLATELET VOLUME 8.7 fL (7.4-10.4); MONO % 11.5 %; NEUT % 40.6 %; PLATELET COUNT 250 K/uL (130-400); RED BLOOD COUNT 3.87 M/uL (4.2-5.4); WHITE BLOOD COUNT 5.73 K/uL (4.8-10.8)
[2017-03-15 07:20] VITALS: BP 131/83; PULSE 78; TEMP 36.9; O2SAT 96
[2017-03-15 07:21] LABS: BUN/CREATININE RATIO 7.8 (10-20); CALCIUM 8.1 mg/dl (8.5-10.1); CREATININE 0.55 mg/dl (0.60-1.20); MAGNESIUM 2.1 mg/dl (1.8-2.4); POTASSIUM 3.9 mmol/L (3.5-5.1)
[2017-03-15] MEDS: KETOROLAC TROMETHAMINE 30 MG/ML VIAL IV PRN (07:54)
[2017-03-15] MEDS: POLYETHYLENE (MIRALAX) 17 GM PACK PO PRN (07:56)
--- NOTE | 2017-03-15 08:56 | Progress Note ---
Internal Med Progress Note Date of Service: March 15, 2017. Provider Documentation: SUBJECTIVE: seen and examined at bedside. Doing well. Has mild Abdominal discomfort. Denies nausea and vomiting this morning. Tolerated breakfast. Denies chest pain, SOB, diarrhea. offers no other complaints. OBJECTIVE: Vital Signs-as noted below Physical Exam: General Appearance:Moderately built and nourished, no apparent distress Head: normocephalic, Atraumatic Eyes: normal inspection, EOMI, PERRL Neck: supple, Trachea midline Respiratory/Chest: Normal breath sounds, CTA Cardiovascular: S1, S2, No murmur Abdomen/GI:Soft, non tender, Bowel sounds present Extremities/Musculoskelatal:normal inspection, no edema Neurologic/Psych:AAOX3, grossly no focal neurological deficits Skin: normal color, warm Lab data as noted below. ASSESSMENT & PLAN: ABDOMINAL PAIN/VOMITING Likely acute gastroenteritis Leukocytosis resolved, lactic acid WNL Blood cultures: No growth to date CT ABD: sigmoid diverticulosis, moderate gallbladder distension, fatty liver Gallbladder USD: ? sludge, fatty liver Appreciate surgery input Continue Supportive care: IVF, antiemetics, pain control Resume Reglan when tolerating PO Advance diet as tolerated HYPOKALEMIA: Secondary to Vomiting Replace and monitor Resolved HEADACHE H/O chronic migraine Multiple recent ER visits- 02/14/17 for closed head injury, 03/10/[address] head 02/27/17 unremarkable PRN Toradol, Continue amitriptyline CHRONIC BACK PAIN lidocaine patch, heat application DM II Hold metformin during hospitalization ISS, accu checks ASTHMA Not in acute exacerbation Continue home inhalers HYPERTENSION stable Continue lisinopril DYSLIPIDEMIA Continue statin DEPRESSION Continue home meds GERD Continue PPI and H2 chilo DVT PX: Lovenox SQ CODE STATUS: FULL CODE DISPOSITION: Plan to discharge home today Follow up with Dr. Peña on 03/18/17 at 1:45pm Vital Signs: Date Time Temp Pulse Resp B/P Pulse Ox O2 Delivery O2 Flow Rate FiO2 03/15/17 07:20 36.9 78 18 131/83 96 Room Air 03/15/17 04:15 36.5 80 18 144/89 98 Room Air 03/15/17 04:00 Room Air 03/15/17 00:06 36.3 76 17 122/83 97 Room Air 03/15/17 00:00 Room Air 03/14/17 20:21 36.7 77 20 145/76 96 Room Air 03/14/17 20:10 Room Air 03/14/17 16:00 Room Air 03/14/17 15:43 36.8 87 20 128/80 94 Room Air 03/14/17 14:18 36.7 90 16 116/74 95 03/14/17 12:00 Room Air Lab Results: Results Past 24 Hours Test 03/14/17 11:48 03/14/17 16:06 03/14/17 20:52 03/15/17 06:24 Range/Units Bedside Glucose 135 73 123 70-90 mg/dl White Blood Count 5.73 4.8-10.8 K/uL Red Blood Count 3.87 4.2-5.4 M/uL Hemoglobin 11.1 12.0-16.0 g/dL Hematocrit 32.8 37-47 % Mean Corpuscular Volume 84.8 80-100 fL Mean Corpuscular Hemoglobin 28.7 25-34 pg Mean Corpuscular Hemoglobin Concent 33.8 32-36 g/dl Platelet Count 250 130-400 K/uL Mean Platelet Volume 8.7 7.4-10.4 fL Neutrophils (%) (Auto) 40.6 % Lymphocytes (%) (Auto) 44.3 % Monocytes (%) (Auto) 11.5 % Eosinophils (%) (Auto) 3.1 % Basophils (%) (Auto) 0.2 % Neutrophils # (Auto) 2.32 1.4-6.5 K/uL Lymphocytes # (Auto) 2.54 1.2-3.4 K/uL Monocytes # (Auto) 0.66 0.11-0.59 K/uL Eosinophils # (Auto) 0.18 0-0.5 K/uL Basophils # (Auto) 0.01 0-0.2 K/uL RDW Standard Deviation 43.9 36.4-46.3 fL RDW Coefficient of Variation 14.1 11.5-14.5 % Immature Granulocyte % (Auto) 0.3 % Immature Granulocyte # (Auto) 0.02 0.00-0.02 K/uL Sodium Level 145 136-145 mmol/L Potassium Level 3.9 3.5-5.1 mmol/L Chloride Level 114 98-107 mmol/L Carbon Dioxide Level 25 21-32 mmol/L Anion Gap 6.0 3-11 mmol/L Blood Urea Nitrogen 4 7-18 mg/dl Creatinine 0.55 0.60-1.20 mg/dl Est Creatinine Clear Calc Drug Dose 120.6 ml/min Estimated GFR () 119.8 Estimated GFR (Non- 103.4 BUN/Creatinine Ratio 7.8 10-20 Random Glucose 111 70-99 mg/dl Calcium Level 8.1 8.5-10.1 mg/dl Magnesium Level 2.1 1.8-2.4 mg/dl Test 03/15/17 07:37 Range/Units Bedside Glucose 107 70-90 mg/dl
[2017-03-15] MEDS: LIDODERM (LIDOCAINE) PATCH 5% TD SCH (09:00)
[2017-03-15] MEDS: FLUTICASONE/SALMETEROL (ADVAIR) 500/50 INH 14 PUFF INH SCH (09:14)
[2017-03-15] MEDS: FLUTICASONE PROPIONATE NA SPR 16 GM BTL NAE SCH (09:14)
[2017-03-15] MEDS: POTASSIUM CHLORIDE 20 MEQ TABCR PO SCH (09:15)
[2017-03-15] MEDS: MULTIVITAMIN TAB PO SCH (09:15)
[2017-03-15] MEDS: PANTOprazole SOD 40 MG TAB PO SCH (09:17)
[2017-03-15] MEDS: ASPIRIN 81 MG ECTAB PO SCH (09:17)
[2017-03-15] MEDS: TOLTERODINE TARTRATE 2 MG TAB PO SCH (09:17)
[2017-03-15] MEDS: DULOXETINE HCL 60 MG CAP PO SCH (09:17)
[2017-03-15] MEDS: ATORVASTATIN 40 MG TAB PO SCH (09:18)
[2017-03-15] MEDS: LISINOPRIL 2.5 MG TAB PO SCH (09:19)
[2017-03-15] MEDS: hydrOXYzine HCL 25 MG TAB PO SCH (09:19)
[2017-03-15] MEDS: FERROUS SULFATE 325 MG TAB PO SCH ×2 (09:19→11:35)
--- NOTE | 2017-03-15 09:21 | Discharge Summary ---
Discharge Summary Date of Service March 15, 2017. Discharge Summary Admission Date: March 13, 2017 at 15:51 Discharge Date: March 15, 2017 Discharge Disposition: Home Principal Diagnosis: Acute Gastroenteritis Procedures: CT ABD: 1. Sigmoid diverticulosis without evidence for acute diverticulitis. 2. Moderate gallbladder distention. No pericholecystic infiltration. This finding could be correlated with right upper quadrant pain. 3. Fatty liver. Gall Bladder USD; 1. Moderate gallbladder distention. No gallstones identified or gallbladder wall thickening. Possible sludge within the gallbladder. 2. Fatty liver. 3. No biliary ductal dilatation. CXR: No significant change compared to the prior study. No acute process. Consultations: None Pending Studies/Follow-Up: Follow up with Dr. Peña on 03/18/17 at 1:45pm Seek immediate medical attention if your symptoms reoccur or worsen Medication Reconciliation Continued Medications: Amitriptyline HCl (Amitriptyline HCl) 100 Mg Tab 100 MG PO HS Aspirin (Aspirin) 81 Mg Tab 81 MG PO DAILY Oxgyuaz-Xjihwxdplhqqy-Ffcubvxl (Excedrin Migraine) 1 Tab Tab 1 DOSE PO DIRECTED PRN for Migraine Atorvastatin (Lipitor) 80 Mg Tab 80 MG PO DAILY, TAB Buspirone Hcl (Buspirone Hcl) 5 Mg Tab 5 MG PO BID Dicyclomine Hcl (Dicyclomine Hcl) 10 Mg Cap 10 MG PO QID PRN for Pain Duloxetine HCl (Duloxetine HCl) 60 Mg Cap 60 MG PO DAILY Esomeprazole Magnesium (Esomeprazole Magnesium) 40 Mg Cap 40 MG PO QAM TAKE THIS MEDICATION ONCE DAILY BEFORE BREAKFAST Ferrous Sulfate (Ferrous Sulfate) 325 Mg Tab 325 MG PO TIDM Fluticasone Prop/Salmeterol (Advair Diskus 500/50 60 Dose) 1 Ea Aerp 1 PUFF INH BID Fluticasone Propionate (Fluticasone Propionate) 120 Sprays/6000 Mcg Inha 1 SPRAYS JG BID Hydroxyzine Pamoate (Vistaril) 25 Mg Cap 25 MG PO BID Insulin Glargine (Lantus Solostar) 100 Unit/Ml Inj 5 UNITS SC HS Ipratropium-Albuterol (Duoneb) 3 Ml Nebu 1 TREATMENT INH QID PRN for SOB/Wheezing, INHA Lisinopril (Lisinopril) 2.5 Mg Tab 2.5 MG PO DAILY Meclizine HCl (Meclizine HCl) 12.5 Mg Tab 1 TAB PO TID PRN for Dizziness or Vertigo for 30 Days, #90 TAB 3 Refills Melatonin (Kp Melatonin) 3 Mg Tab 1-2 TABS PO HS PRN for Insomnia for 30 Days, #30 TAB 2 Refills Metformin HCl (Metformin HCl) 500 Mg Tab 500 MG PO TID Metoclopramide Hcl (Reglan) 10 Mg Tab 10 MG PO ACHS TAKE THIS MEDICATION ONE HOUR BEFORE MEALS AND BEDTIME Multivitamin (Multivitamin) Tab 1 TAB PO DAILY, TAB Polyethylene (Polyethylene Glycol 3350) 527 Gm Soln 17 GM PO QAM MIX WITH 8 OUNCES OF WATER Potassium Gluconate (Potassium Gluconate) 595 Mg Tab 1190 MG PO DAILY Promethazine HCl (Promethazine HCl) 25 Mg Tab 25 MG PO Q6H PRN for Nausea Ranitidine HCl (Ranitidine HCl) 150 Mg Tab 150 MG PO HS Senna/Docusate Sod (Senokot S) 1 Tab Tab 1 TAB PO QAM, TAB Sucralfate (Sucralfate) 1 Gm Tab 1 GM PO ACHS TAKE THIS MEDICATION ONE HOUR BEFORE MEALS AND BEDTIME Tolterodine Tartrate (Tolterodine Tartrate) 2 Mg Tab 2 MG PO BID Valacyclovir HCl (Valacyclovir HCl) 500 Mg Tab 500 MG PO TID PRN for Outbreaks Admission Information HPI (per Admitting provider): This is a 56 year old female with PMH of asthma, DM type 2, HL, GERD, IBS, gastroparesis, depression, migraine headaches, and other problems listed below who presents to the ED with abdominal pain, nausea, and vomiting. Patient states symptoms started overnight around midnight. She reports "countless" episodes of vomiting which continued in the ER. She was unable to keep down pills, food, or drink this morning. She reports still feeling mildly nauseous although Phenergan and Reglan in the ER helped. Abdominal pain is sharp in RUQ. It is worse with supine position and improves if she lays on her left side. Denies diarrhea. Last BM was normal yesterday morning. Has occasional GERD. No GI bleeding. She admits to chills and fatigue. Patient reports her chronic low back pain is bothering her more than the abdominal pain. She receives steroid injections as an outpatient. Morphine 10 mg in the ER helped but requests something more for back pain. She reports headache with blurry vision since hitting her head on a litter box 1 week ago, states she had ER evaluation for it - but appears that was 1 month ago. She had been evaluated in the ER for closed head injury on 02/14/[address] head 02/27/17. She was also treated in ER 3 days ago for migraine with morphine and Phenergan. She has been taking Excedrin migraine at home which did not help today. She reports dry cough , sneezing, itchy watery eyes x 1 week. Has chronic tingling of bilateral hands and feet but no acute change. Has vertigo at times for which she takes meclizine. Denies fever, sore throat, chest pain, SOB, focal weakness. She recently took course of doxycycline for left groin abscess which improved. She reports babysitting her grandchildren who have been ill with vomiting. No recent travel. Physical Exam (per Admitting): General Appearance: + obese, + pertinent finding (alert 56 year old female, lying in bed, no distress) Head: normocephalic, atraumatic Eyes: normal inspection, PERRL, EOMI ENT: hearing grossly normal, pharynx normal Neck: supple, trachea midline Respiratory/Chest: lungs clear, normal breath sounds, no respiratory distress, no accessory muscle use Cardiovascular: no murmur, + tachycardia (rate 90s, regular) Abdomen/GI: normal bowel sounds, soft, + pertinent finding (mildly distended but soft. moderate tenderness in RUQ and mild tenderness in epigastrium. em's sign negative. no guarding. ) Back: + pertinent finding (lumbar paraspinal tenderness to palpation bilateraly) Extremities/Musculoskelatal: no calf tenderness, no pedal edema Neurologic/Psych: alert, normal mood/affect, oriented x 3, + pertinent finding (no facial droop, no dysarthria, strength 5/5 all extremities) Skin: normal color, warm/dry, + pertinent finding (healing lesion in left groin. no fluctuance, tenderness, erythema or drainage. ) Hospital Course ABDOMINAL PAIN/VOMITING Likely acute gastroenteritis Leukocytosis resolved, lactic acid WNL Blood cultures: No growth to date CT ABD: sigmoid diverticulosis, moderate gallbladder distension, fatty liver Gallbladder USD: ? sludge, fatty liver Appreciate surgery input Continue Supportive care: IVF, antiemetics, pain control Resume Reglan when tolerating PO Advance diet as tolerated HYPOKALEMIA: Secondary to Vomiting Replace and monitor Resolved HEADACHE H/O chronic migraine Multiple recent ER visits- 02/14/17 for closed head injury, 03/10/[address] head 02/27/17 unremarkable PRN Toradol, Continue amitriptyline CHRONIC BACK PAIN lidocaine patch, heat application DM II Hold metformin during hospitalization ISS, accu checks ASTHMA Not in acute exacerbation Continue home inhalers HYPERTENSION stable Continue lisinopril DYSLIPIDEMIA Continue statin DEPRESSION Continue home meds GERD Continue PPI and H2 chilo DVT PX: Lovenox SQ CODE STATUS: FULL CODE DISPOSITION: Plan to discharge home today Follow up with Dr. Peña on 03/18/17 at 1:45pm Total time spent on discharge = 32 minutes This includes examination of the patient, discharge planning, medication reconciliation, and communication with other providers. Discharge Instructions Discharge Instructions Date of Service March 15, 2017. Admission Reason for Admission: Abdominal Pain Discharge Discharge Diagnosis / Problem: Acute Gastroenteritis Discharge Goals Goal(s): Decrease discomfort, Improve function Activity Recommendations Activity Limitations: resume your previous activity Exercise/Sports Limitations: as tolerated . Instructions / Follow-Up Instructions / Follow-Up Follow up with Dr. Peña on 03/18/17 at 1:45pm Seek immediate medical attention if your symptoms reoccur or worsen Current Hospital Diet Patient's current hospital diet: Low Fat Diet, AHA Diet (Heart Healthy) Discharge Diet Recommended Diet: Diabetes Type 2 Diet, Low Fiber Diet Pending Studies Studies pending at discharge: no Laboratory Results Hemoglobin A1c Test 01/05/17 05:40 Range/Units Estimated Average Glucose 134 mg/dl Hemoglobin A1c 6.3 H 4.5-5.6 % Medical Emergencies . Who to Call and When: Medical Emergencies: If at any time you feel your situation is an emergency, please call 911 immediately. . Non-Emergent Contact Non-Emergency issues call your: Primary Care Provider Call Non-Emergent contact if: you have a fever, your pain is not controlled, your pain is worsening, your pain is unusual for you, you have any medication questions . . "Provider Documentation" section prepared by Fawad Dickerson. . VTE Core Measure Inpt VTE Proph given/why not?: Enoxaparin (Lovenox)SQ
[2017-03-15] MEDS: INSULIN ASPART 100 UNITS/ML 3 ML PEN SC SCH ×2 (09:25→12:59)
[2017-03-15 10:43] VITALS: BP 145/95; PULSE 89; O2SAT 97
[2017-03-15 11:45] VITALS: BP 125/80; PULSE 83; TEMP 36.6; O2SAT 94
--- NOTE | 2017-03-15 13:08 | Surgery Progress Note ---
Surgery Progress Note Date of Service March 15, 2017. Subjective pt seen. feeling much better than admission. continues to have some mild RUQ discomfort. "hungry".... Objective Vital Signs: Date Time Temp Pulse Resp B/P Pulse Ox O2 Delivery O2 Flow Rate FiO2 03/15/17 11:45 36.6 83 18 125/80 94 Room Air 03/15/17 10:43 89 97 03/15/17 08:00 Room Air 03/15/17 07:20 36.9 78 18 131/83 96 Room Air 03/15/17 04:15 36.5 80 18 144/89 98 Room Air 03/15/17 04:00 Room Air 03/15/17 00:06 36.3 76 17 122/83 97 Room Air 03/15/17 00:00 Room Air 03/14/17 20:21 36.7 77 20 145/76 96 Room Air 03/14/17 20:10 Room Air 03/14/17 16:00 Room Air 03/14/17 15:43 36.8 87 20 128/80 94 Room Air 03/14/17 14:18 36.7 90 16 116/74 95 General Appearance: no apparent distress Head: normocephalic, atraumatic Neck: supple, no JVD Respiratory/Chest: no respiratory distress, no accessory muscle use Abdomen: non tender, non distended, soft Extremities: normal inspection Laboratory Results: Results Past 24 Hours Test 03/14/17 16:06 03/14/17 20:52 03/15/17 06:24 03/15/17 07:37 Range/Units Bedside Glucose 73 123 107 70-90 mg/dl White Blood Count 5.73 4.8-10.8 K/uL Red Blood Count 3.87 4.2-5.4 M/uL Hemoglobin 11.1 12.0-16.0 g/dL Hematocrit 32.8 37-47 % Mean Corpuscular Volume 84.8 80-100 fL Mean Corpuscular Hemoglobin 28.7 25-34 pg Mean Corpuscular Hemoglobin Concent 33.8 32-36 g/dl Platelet Count 250 130-400 K/uL Mean Platelet Volume 8.7 7.4-10.4 fL Neutrophils (%) (Auto) 40.6 % Lymphocytes (%) (Auto) 44.3 % Monocytes (%) (Auto) 11.5 % Eosinophils (%) (Auto) 3.1 % Basophils (%) (Auto) 0.2 % Neutrophils # (Auto) 2.32 1.4-6.5 K/uL Lymphocytes # (Auto) 2.54 1.2-3.4 K/uL Monocytes # (Auto) 0.66 0.11-0.59 K/uL Eosinophils # (Auto) 0.18 0-0.5 K/uL Basophils # (Auto) 0.01 0-0.2 K/uL RDW Standard Deviation 43.9 36.4-46.3 fL RDW Coefficient of Variation 14.1 11.5-14.5 % Immature Granulocyte % (Auto) 0.3 % Immature Granulocyte # (Auto) 0.02 0.00-0.02 K/uL Sodium Level 145 136-145 mmol/L Potassium Level 3.9 3.5-5.1 mmol/L Chloride Level 114 98-107 mmol/L Carbon Dioxide Level 25 21-32 mmol/L Anion Gap 6.0 3-11 mmol/L Blood Urea Nitrogen 4 7-18 mg/dl Creatinine 0.55 0.60-1.20 mg/dl Est Creatinine Clear Calc Drug Dose 120.6 ml/min Estimated GFR () 119.8 Estimated GFR (Non- 103.4 BUN/Creatinine Ratio 7.8 10-20 Random Glucose 111 70-99 mg/dl Calcium Level 8.1 8.5-10.1 mg/dl Magnesium Level 2.1 1.8-2.4 mg/dl Test 03/15/17 11:30 Range/Units Bedside Glucose 125 70-90 mg/dl Assessment & Plan 03/15/17 clinically improving would advance diet and consider d/c soon can f/u in office..if symptoms persists can obtain HIDA scan 03/14/17 enteritis WBC down, tolerating clears doubt cholecystitis advance diet as fide addendum: as above. wbc down. will continue to follow along. cont supportive care. enteritis WBC down, tolerating clears doubt cholecystitis advance diet as fide addendum: as above. wbc down. will continue to follow along. cont supportive care.
[2017-03-15 13:56] VITALS: BP 125/80; PULSE 83; TEMP 36.6; O2SAT 94
[2017-09-22] MEDS ORDERED: DTR/5 PO (14:15)
[2017-09-22] MEDS ORDERED: PROM25TA16 PO (14:59)
[2017-09-22] MEDS ORDERED: POTA1TAB PO (15:03)
[2017-09-22] MEDS ORDERED: ASPI1TAB83 PO (15:29)
[2017-09-22] MEDS ORDERED: MULT-506 PO (15:53)
[2017-09-22] MEDS ORDERED: RANI150T2 PO (15:56)
[2017-09-22] MEDS ORDERED: SUCR1TAB PO (15:56)
[2017-09-22] MEDS ORDERED: MRLP527 PO (15:56)
[2017-09-22] MEDS ORDERED: CYM60 PO (15:56)
[2017-09-22] MEDS ORDERED: ADVIN50/60 INH (16:10)
[2017-09-22] MEDS ORDERED: BUSP5TAB59 PO (16:26)
[2017-09-22] MEDS ORDERED: GLC500 PO (16:26)
[2017-09-22] MEDS ORDERED: ESTCR PV (18:18)
[2017-09-22] MEDS ORDERED: HYDR1CAP85 PO (19:14)
[2017-09-22] MEDS ORDERED: MELA1CAP9 PO (19:14)
[2017-09-22] MEDS ORDERED: SNG10 PO (19:14)
== END 2017-03-15 14:30 | disposition home or self-care (01) | DRG 392 ==
LOC: ENRESERVDT → ENRESERVTM → C.EDB 10:45 → C.MED 15:51
PROVIDERS: ADMIT Hospitalist; ATTEND Internal Medicine
DX: K52.9 Noninfective gastroenteritis and colitis, unspecified (principal); Z68.41 Body mass index [BMI] 40.0-44.9, adult; E87.6 Hypokalemia; K82.8 Other specified diseases of gallbladder; G43.909 Migraine, unspecified, not intractable, without status migrainosus; Z87.828 Personal history of other (healed) physical injury and trauma; Z91.81 History of falling; K57.30 Diverticulosis of large intestine without perforation or abscess without bleeding; K76.0 Fatty (change of) liver, not elsewhere classified; E11.9 Type 2 diabetes mellitus without complications; J45.40 Moderate persistent asthma, uncomplicated; K21.9 Gastro-esophageal reflux disease without esophagitis; K58.9 Irritable bowel syndrome, unspecified; F32.9 Major depressive disorder, single episode, unspecified; I10 Essential (primary) hypertension; F41.9 Anxiety disorder, unspecified; G89.29 Other chronic pain; M54.9 Dorsalgia, unspecified; E78.5 Hyperlipidemia, unspecified; E66.9 Obesity, unspecified; Z51.81 Encounter for therapeutic drug level monitoring; Z79.899 Other long term (current) drug therapy; Z79.4 Long term (current) use of insulin; Z79.82 Long term (current) use of aspirin; Z86.19 Personal history of other infectious and parasitic diseases; Z87.891 Personal history of nicotine dependence

== ENCOUNTER 2017-04-04 14:23 | Emergency (ER) | payer OTHER ==
[~2017-04-04] VITALS: Ht 154.9 cm; Wt 95.9 kg
[~2017-04-04 14:23] MED LIST changes: -ACET-1256 PO; -DIPH25TA32 PO; +MECL1TAB40 PO; -MELA1CAP9 PO; +MELA1TAB5 PO; -MTR800 PO; -SNG10 PO
[2017-04-04 14:26] VITALS: TEMP 36.6; Ht 154.9 cm; Wt 95.9 kg
[2017-04-04] MEDS ORDERED: SODIUM CHLORIDE 0.9% 1000ML 1,000 ML IV STA (16:04)
[2017-04-04] MEDS ORDERED: PROMETHAZINE HCL INJ 25 MG in SODIUM CHLORIDE 0.9% 50ML 50 ML IV STA (16:12)
[2017-04-04] MEDS ORDERED: KETOROLAC TROMETHAMINE 30 MG/ML VIAL IV STA (16:12)
--- NOTE | 2017-04-04 16:40 | DIAGNOSTIC IMAGING REPORT ---
CHEST ONE VIEW PORTABLE CLINICAL HISTORY: RUQ pain nausea COMPARISON STUDY: 03/13/2017 FINDINGS: Lungs are clear. Diaphragms are smooth. No evidence for cardiac enlargement. IMPRESSION: Negative chest. Electronically signed by: Jose Collins M.D. 04/04/2017 4:39 PM Dictated Date/Time: 04/04/2017 4:38 PM
[2017-04-04 16:50] LABS: BASO % 0.2 %; BASO ABS # 0.03 K/uL (0-0.2); COMPLETE YES; EOS % 0.9 %; HEMATOCRIT 36.9 % (37-47); IG% 0.3 %; LYMPH % 32.1 %; LYMPH ABS # 4.62 K/uL (1.2-3.4); MEAN CELL VOLUME 83.3 fL (80-100); MEAN CORPUSCULAR HEMOGLOBIN 29.6 pg (25-34); MEAN CORPUSCULAR HGB CONC 35.5 g/dl (32-36); MEAN PLATELET VOLUME 8.6 fL (7.4-10.4); MONO % 8.2 %; NEUT % 58.3 %; PLATELET COUNT 367 K/uL (130-400); RED BLOOD COUNT 4.43 M/uL (4.2-5.4); WHITE BLOOD COUNT 14.41 K/uL (4.8-10.8)
[2017-04-04 16:56] LABS: URINE APPEARANCE CLEAR (CLEAR); URINE BILIRUBIN NEG (NEG); URINE COLOR YELLOW; URINE EPITHELIAL CELL AUTO >30 /lpf (0-5); URINE NITRITE NEG (NEG); URINE SPECIFIC GRAVITY 1.011 (1.000-1.030); UROBILINOGEN NEG (NEG); ZZUR CULT IF INDIC CLEAN CATCH YES
[2017-04-04 16:57] LABS: MANUAL MICROSCOPIC REQUIRED? NO; REVIEW REQ? NO
[2017-04-04 17:16] LABS: ALT/SGPT 44 U/L (12-78); AST/SGOT 17 U/L (15-37); BLOOD UREA NITROGEN 12 mg/dl (7-18); BUN/CREATININE RATIO 16.1 (10-20); CALCIUM 8.4 mg/dl (8.5-10.1); CARBON DIOXIDE 25 mmol/L (21-32); CHLORIDE 106 mmol/L (98-107); CREATININE 0.75 mg/dl (0.60-1.20); GLUCOSE 105 mg/dl (70-99); POTASSIUM 3.8 mmol/L (3.5-5.1); SODIUM 140 mmol/L (136-145)
[2017-04-04 17:19] LABS: ALKALINE PHOSPHATASE 156 U/L (45-117)
--- NOTE | 2017-04-04 17:56 | DIAGNOSTIC IMAGING REPORT ---
Right upper quadrant ultrasound GALLBLADDER-ABD LIMITED CLINICAL HISTORY: RUQ pain pain. Nausea. TECHNIQUE: Ultrasound COMPARISON STUDY: 03/13/2017 FINDINGS: Similar exam. Fatty infiltration of liver. Normal gallbladder. 4 mm common bile duct. Kidneys negative for hydronephrosis. IMPRESSION: 1. Fatty infiltration of liver. 2. Otherwise negative study. 3. No change from the prior exam . No current evidence for gallbladder distention Electronically signed by: Jose Collins M.D. 04/04/2017 5:55 PM Dictated Date/Time: 04/04/2017 5:53 PM
[2017-04-04] MEDS ORDERED: MoRPHine SULFATE 10 MG/ML CARP/VIAL IV STA (18:05)
[2017-04-04] MEDS ORDERED: OXYB10TA PO (18:16)
[2017-04-04 19:01] VITALS: BP 116/70; PULSE 84; O2SAT 99
--- NOTE | 2017-04-05 00:33 | EMERGENCY ROOM VISIT NOTE ---
History Report prepared by Tamera: Duglas Andino Under the Supervision of: Dr. Beltran Cunningham M.D. First contact with patient: 16:04 Chief Complaint: ABDOMINAL PAIN Stated Complaint: CHEST PAIN IN RT QUAD History of Present Illness The patient is a 56 year old female who presents to the Emergency Room with complaints of constant RUQ abdominal pain beginning 4 hours ago. She states that her pain occasionally shoots to her back. She rates her pain as a 9/10 in severity. The patient notes that she was recently hospitalized for an illness. She has taken Ibuprofen for her pain, but has seen minimal relief. She also complains of intermittent shortness of breath and nausea. Pt denies LOC, headache, fevers, chills, diaphoresis, visual changes, neck pain, chest pain, vomiting, melena, hematochezia, urinary symptoms, numbness, weakness, lymphadenopathy, rash, or other complaints. Source of History: patient Onset: 4 hours ago Position: abdomen (RUQ) Symptom Intensity: 9/10 Timing: constant Associated Symptoms: + SOB (intermittent), + nausea, + back pain, No vomiting Review of Systems See HPI for pertinent positives and negatives. A total of ten systems were reviewed and were otherwise negative. Past Medical & Surgical Medical Problems: (1) Abdominal pain (2) Cervicalgia (3) Depression with anxiety (4) DM type 2 (diabetes mellitus, type 2) (5) Gastroparesis (6) GERD (gastroesophageal reflux disease) (7) IBS (irritable bowel syndrome) (8) Moderate persistent asthma (9) Obesity Surgical Problems: (1) H/O dilation and curettage (2) H/O: hysterectomy (3) History of tonsillectomy and adenoidectomy (4) History of tubal ligation Social History Problems: (1) Herpes simplex Family History FH: cancer FATHER Social History Smoking Status: Former Smoker Alcohol Use: none Drug Use: none Housing Status: lives with significant other Occupation Status: employed Current/Historical Medications Scheduled Amitriptyline HCl (Amitriptyline HCl), 100 MG PO HS Aspirin (Aspirin), 81 MG PO DAILY Atorvastatin (Lipitor), 80 MG PO DAILY Buspirone Hcl (Buspirone Hcl), 5 MG PO BID Duloxetine HCl (Duloxetine HCl), 60 MG PO DAILY Esomeprazole Magnesium (Esomeprazole Magnesium), 40 MG PO QAM Estradiol Vaginal (Estrace), 1 APPLN PV 2XWK Ferrous Sulfate (Ferrous Sulfate), 325 MG PO TIDM Fluticasone Prop/Salmeterol (Advair Diskus 500/50 60 Dose), 1 PUFF INH BID Fluticasone Propionate (Fluticasone Propionate), 1 SPRAYS JG BID Hydroxyzine Pamoate (Vistaril), 25 MG PO BID Insulin Glargine (Lantus Solostar), 5 UNITS SC HS Lisinopril (Lisinopril), 2.5 MG PO DAILY Metformin HCl (Metformin HCl), 500 MG PO TID Metoclopramide Hcl (Reglan), 10 MG PO ACHS Multivitamin (Multivitamin), 1 TAB PO DAILY Oxybutynin Chloride Er (Ditropan Xl), 10 MG PO QAM Polyethylene (Polyethylene Glycol 3350), 17 GM PO QAM Potassium Gluconate (Potassium Gluconate), 1,190 MG PO DAILY Ranitidine HCl (Ranitidine HCl), 150 MG PO HS Senna/Docusate Sod (Senokot S), 1 TAB PO QAM Sucralfate (Sucralfate), 1 GM PO ACHS Scheduled PRN Opezjpy-Vxhmlmtqvzebr-Tecpwxzz (Excedrin Migraine), 1 DOSE PO DIRECTED PRN for Migraine Dicyclomine Hcl (Dicyclomine Hcl), 10 MG PO QID PRN for Pain Ipratropium-Albuterol (Duoneb), 1 TREATMENT INH QID PRN for SOB/Wheezing Meclizine HCl (Meclizine HCl), 1 TAB PO TID PRN for Dizziness or Vertigo Melatonin (Kp Melatonin), 1-2 TABS PO HS PRN for Insomnia Promethazine HCl (Promethazine HCl), 25 MG PO Q6H PRN for Nausea Valacyclovir HCl (Valacyclovir HCl), 500 MG PO TID PRN for Outbreaks Allergies Coded Allergies: Hydromorphone (Verified Allergy, Severe, itching, 03/13/17) Ondansetron (Verified Allergy, Intermediate, hives; RASH, 03/13/17) Sulfa Antibiotics (Verified Allergy, Intermediate, rash, 03/13/17) Aminoglycosides (Verified Allergy, Unknown, >, 03/13/17) Bacitracin (Verified Allergy, Unknown, >, 03/13/17) Ceftriaxone (Verified Allergy, Unknown, Rash, hives and itchiness., ) Cephalexin (Verified Allergy, Unknown, hives, 03/13/17) Latex1 -Allergic Contact Dermititis (Verified Allergy, Unknown, 03/13/17) Neomycin (Verified Allergy, Unknown, >, 03/13/17) Polymyxin B (Verified Allergy, Unknown, >, 03/13/17) Sulfamethoxazole w/Trimethoprim (Verified Allergy, Unknown, Unknown, ) Physical Exam Vital Signs Date Time Temp Pulse Resp B/P (MAP) Pulse Ox O2 Delivery O2 Flow Rate FiO2 04/04/17 19:01 84 16 116/70 99 04/04/17 18:03 86 16 114/61 96 04/04/17 14:26 36.6 88 20 127/79 98 Room Air Physical Exam GENERAL: Awake, alert, well-appearing, in no distress HENT: Normocephalic, atraumatic. Oropharynx unremarkable. EYES: Normal conjunctiva. Sclera non-icteric. NECK: Supple. No nuchal rigidity. FROM. No JVD. RESPIRATORY: Clear to auscultation. CARDIAC: Regular rate, normal rhythm. Extremities warm and well perfused. Pulses equal. ABDOMEN: Soft, non-distended. RUQ tenderness to palpation. No rebound or guarding. No masses. RECTAL: Deferred. MUSCULOSKELETAL: Chest examination reveals right lower rib tenderness. The back is symmetrical on inspection without obvious abnormality. There is no CVA tenderness to palpation. No joint edema. LOWER EXTREMITIES: Calves are equal size bilaterally and non-tender. No edema. No discoloration. NEURO: Normal sensorium. No sensory or motor deficits noted. SKIN: No rash or jaundice noted. Medical Decision & Procedures ER Provider Diagnostic Interpretation: Radiology results as stated below per my review and radiologist interpretation: Right upper quadrant ultrasound GALLBLADDER-ABD LIMITED FINDINGS: Similar exam. Fatty infiltration of liver. Normal gallbladder. 4 mm common bile duct. Kidneys negative for hydronephrosis. IMPRESSION: 1. Fatty infiltration of liver. 2. Otherwise negative study. 3. No change from the prior exam . No current evidence for gallbladder distention Electronically signed by: Jose Collins M.D. CHEST ONE VIEW PORTABLE FINDINGS: Lungs are clear. Diaphragms are smooth. No evidence for cardiac enlargement. IMPRESSION: Negative chest. Electronically signed by: Jose Collins M.D. Laboratory Results 04/04/17 16:38 Red Blood Count 4.43, Mean Corpuscular Volume 83.3, Mean Corpuscular Hemoglobin 29.6, Mean Corpuscular Hemoglobin Concent 35.5, Mean Platelet Volume 8.6, Neutrophils (%) (Auto) 58.3, Lymphocytes (%) (Auto) 32.1, Monocytes (%) (Auto) 8.2, Eosinophils (%) (Auto) 0.9, Basophils (%) (Auto) 0.2, Neutrophils # (Auto) 8.40, Lymphocytes # (Auto) 4.62, Monocytes # (Auto) 1.18, Eosinophils # (Auto) 0.13, Basophils # (Auto) 0.03 04/04/17 16:38 Test 04/04/17 00:00 04/04/17 16:38 Urine Color YELLOW Urine Appearance CLEAR (CLEAR) Urine pH 6.0 (4.5-7.5) Urine Specific Rupert 1.011 (1.000-1.030) Urine Protein NEG (NEG) Urine Glucose (UA) NEG (NEG) Urine Ketones NEG (NEG) Urine Occult Blood NEG (NEG) Urine Nitrite NEG (NEG) Urine Bilirubin NEG (NEG) Urine Urobilinogen NEG (NEG) Urine Leukocyte Esterase MODERATE (NEG) Urine WBC (Auto) 10-30 /hpf (0-5) Urine RBC (Auto) 0-4 /hpf (0-4) Urine Hyaline Casts (Auto) 0 /lpf (0-5) Urine Epithelial Cells (Auto) >30 /lpf (0-5) Urine Bacteria (Auto) NEG (NEG) White Blood Count 14.41 K/uL (4.8-10.8) Red Blood Count 4.43 M/uL (4.2-5.4) Hemoglobin 13.1 g/dL (12.0-16.0) Hematocrit 36.9 % (37-47) Mean Corpuscular Volume 83.3 fL (80-100) Mean Corpuscular Hemoglobin 29.6 pg (25-34) Mean Corpuscular Hemoglobin Concent 35.5 g/dl (32-36) Platelet Count 367 K/uL (130-400) Mean Platelet Volume 8.6 fL (7.4-10.4) Neutrophils (%) (Auto) 58.3 % Lymphocytes (%) (Auto) 32.1 % Monocytes (%) (Auto) 8.2 % Eosinophils (%) (Auto) 0.9 % Basophils (%) (Auto) 0.2 % Neutrophils # (Auto) 8.40 K/uL (1.4-6.5) Lymphocytes # (Auto) 4.62 K/uL (1.2-3.4) Monocytes # (Auto) 1.18 K/uL (0.11-0.59) Eosinophils # (Auto) 0.13 K/uL (0-0.5) Basophils # (Auto) 0.03 K/uL (0-0.2) RDW Standard Deviation 43.2 fL (36.4-46.3) RDW Coefficient of Variation 14.1 % (11.5-14.5) Immature Granulocyte % (Auto) 0.3 % Immature Granulocyte # (Auto) 0.05 K/uL (0.00-0.02) Anion Gap 9.0 mmol/L (3-11) Est Creatinine Clear Calc Drug Dose 86.5 ml/min Estimated GFR () 101.8 Estimated GFR (Non- 87.9 BUN/Creatinine Ratio 16.1 (10-20) Calcium Level 8.4 mg/dl (8.5-10.1) Total Bilirubin 0.4 mg/dl (0.2-1) Direct Bilirubin < 0.1 mg/dl (0-0.2) Aspartate Amino Transf (AST/SGOT) 17 U/L (15-37) Alanine Aminotransferase (ALT/SGPT) 44 U/L (12-78) Alkaline Phosphatase 156 U/L (45-117) Total Protein 6.9 gm/dl (6.4-8.2) Albumin 3.5 gm/dl (3.4-5.0) Lipase 307 U/L (73-393) Laboratory results reviewed by me Medications Administered Medications (Trade) Dose Ordered Sig/Antony Route Start Time Stop Time Status Last Admin Dose Admin Sodium Chloride 1,000 ml @ 999 mls/hr Q1H1M STAT IV 04/04/17 16:04 04/04/17 17:04 DC 04/04/17 16:57 999 MLS/HR Ketorolac Tromethamine (Toradol Inj) 30 mg NOW STAT IV 04/04/17 16:12 04/04/17 16:14 DC 04/04/17 16:57 30 MG Promethazine HCl 25 mg/Sodium Chloride 51 ml @ 204 mls/hr NOW STAT IV 04/04/17 16:12 04/04/17 16:26 DC 04/04/17 17:11 204 MLS/HR Morphine Sulfate (MoRPHine SULFATE INJ) 8 mg NOW STAT IV 04/04/17 18:05 04/04/17 18:06 DC 04/04/17 18:13 8 MG ED Course 1604: Ordered Sodium Chloride 1000 ml @ 999 mls/hr IV. 1620: I reviewed the patient's prior records. The patient was evaluated in room B5. A complete history and physical exam was performed. 1612: Ordered Promethazine HCl 25 mg/Sodium Chloride 51 ml @ 204 mls/hr IV, Toradol Inj 30 mg IV. 1805: Ordered Morphine Sulfate 8 mg IV. 1853: I reevaluated the patient. Discussed results and discharge instructions: she verbalized understanding and agreement. The patient is ready for discharge. Medical Decision Medication Reconciliation: I attest that I have personally reviewed the patient' s current medication list Blood pressure screening: Patient was found to have an elevated blood pressure and was referred to their primary doctor for recheck and further treatment. Triage Nursing notes reviewed. The patient's presentation and history were concerning for abdominal pain. Etiologies such as exacerbation of chronic abdominal pain, biliary pathology, appendicitis, diverticulitis, obstruction, inflammatory bowel disease, renal colic, PUD,pancreatitis, mesenteric ischemia, aortic pathology, infections, genitourinary, UTI, perforated viscus, as well as others were entertained. The patient was hydrated and treated with phenergan and toradol for symptoms. Imaging and bloodwork was ordered. The patient had unremarkable chest x-ray and right upper quadrant ultrasound. There is no evidence of free air or infiltrate. No evidence of cholecystitis. She had a slight leukocytosis which she has had occasionally in the past. The patient was afebrile. She had unremarkable chemistries and LFTs. Lipase negative. On reassessment she was feeling better after normal saline and Toradol but still had some discomfort. She requested a dose of morphine. The patient is on a treatment plan. She has not been here this month yet. The patient was given a dose of morphine IV. She was able to rest. I reassessed the patient and she felt significantly better. I discussed conservative management with increasing. She does not have any peritoneal findings. She will need a further evaluation as an outpatient for this issue. If she worsens in any way she will come back to the emergency department for reevaluation. The patient has had numerous CT scans and has resolution of her symptoms I felt it would not be prudent to reimage the patient at this time. By the evaluation outlined above other emergent etiologies such as those listed in the differential, as well as others, were deemed relatively unlikely. The patient was educated about the findings as listed above. All questions were answered and the patient was pleased with the treatment. Return instructions were outlined and the patient was discharged in stable condition. The patient was referred to her PCP tomorrow for follow-up for a recheck of the current condition. Impression Primary Impression: RUQ abdominal pain Additional Impression: Nausea Scribe Attestation The scribe's documentation has been prepared under my direction and personally reviewed by me in its entirety. I confirm that the note above accurately reflects all work, treatment, procedures, and medical decision making performed by me. Departure Information Dispostion Home / Self-Care Referrals Cipriano Peña M.D. (MEDICAL) (PCP) Forms Call Back Authorization, HOME CARE DOCUMENTATION FORM, IMPORTANT VISIT INFORMATION Patient Instructions My [facility] [address] Additional Instructions ABDOMINAL PAIN INSTRUCTIONS: DO NOT drive, drink alcohol, operate machinery, or perform dangerous activities today. You were given medications in the ER that can affect your ability to safely function or operate a vehicle. Ibuprofen(Motrin, Advil) may be used for fever or pain. Use 600mg every six hours as needed. Take with food. Avoid using more than 2400mg in a 24 hour period. Do not use 2400mg per day for more than three consecutive days without physician direction. Prolonged inappropriate use can lead to stomach upset or ulcers. (AND/OR) Acetaminophen(Tylenol) may be used for fever or pain. Use 1000mg every six hours as needed. Avoid using more than 4000mg in a 24 hour period. Rest and drink plenty of fluids as tolerated. Slow sips of water or sports drinks are recommended instead of large amounts all at once. Continue current medications. Once your stomach is settled start with a clear liquid diet (jello, soup broth, etc.) and then advance as tolerated. You should avoid full, heavy meals for about 24 hrs from the time your symptoms resolved. Return to the ER immediately for worsening or persistent abdominal pain, vomiting, fevers, chest pains, difficulty breathing, black or bloody stools, worsening of your condition, or as needed. Follow up with your primary physician tomorrow for a recheck of your current condition. Problem Qualifiers
[2017-09-22] MEDS ORDERED: DTR/5 PO (14:15)
[2017-09-22] MEDS ORDERED: PROM25TA16 PO (14:59)
[2017-09-22] MEDS ORDERED: POTA1TAB PO (15:03)
[2017-09-22] MEDS ORDERED: ASPI1TAB83 PO (15:29)
[2017-09-22] MEDS ORDERED: MULT-506 PO (15:53)
[2017-09-22] MEDS ORDERED: SUCR1TAB PO (15:56)
[2017-09-22] MEDS ORDERED: RANI150T2 PO (15:56)
[2017-09-22] MEDS ORDERED: MRLP527 PO (15:56)
[2017-09-22] MEDS ORDERED: CYM60 PO (15:56)
[2017-09-22] MEDS ORDERED: ADVIN50/60 INH (16:10)
[2017-09-22] MEDS ORDERED: BUSP5TAB59 PO (16:26)
[2017-09-22] MEDS ORDERED: GLC500 PO (16:26)
[2017-09-22] MEDS ORDERED: ESTCR PV (18:18)
[2017-09-22] MEDS ORDERED: SNG10 PO (19:14)
[2017-09-22] MEDS ORDERED: MELA1CAP9 PO (19:14)
[2017-09-22] MEDS ORDERED: HYDR1CAP85 PO (19:14)
== END 2017-04-04 19:02 | disposition home or self-care (01) ==
LOC: C.EDB 14:25
DX: R10.11 Right upper quadrant pain (principal); R11.0 Nausea; E11.9 Type 2 diabetes mellitus without complications; K21.9 Gastro-esophageal reflux disease without esophagitis; K31.84 Gastroparesis; F41.8 Other specified anxiety disorders; K58.1 Irritable bowel syndrome with constipation; Z90.710 Acquired absence of both cervix and uterus; Z98.51 Tubal ligation status; Z98.890 Other specified postprocedural states; Z87.891 Personal history of nicotine dependence; Z79.82 Long term (current) use of aspirin; Z79.4 Long term (current) use of insulin; Z79.84 Long term (current) use of oral hypoglycemic drugs; Z79.899 Other long term (current) drug therapy; Z88.2 Allergy status to sulfonamides; Z88.5 Allergy status to narcotic agent; Z88.8 Allergy status to other drugs, medicaments and biological substances; Z91.041 Radiographic dye allergy status; Z80.9 Family history of malignant neoplasm, unspecified

== ENCOUNTER 2017-04-19 19:01 | Emergency (ER) | payer OTHER ==
[~2017-04-19] VITALS: Ht 154.9 cm; Wt 100.0 kg
[~2017-04-19 19:01] MED LIST changes: +OXYB10TA PO; -TOLT2TAB9 PO
[2017-04-19 19:10] VITALS: Ht 154.9 cm; Wt 100.0 kg
[2017-04-19 20:05] VITALS: TEMP 36.7
[2017-04-19] MEDS ORDERED: ALBUTEROL HFA 8 GM INHALER INH STA (21:06)
[2017-04-19] MEDS ORDERED: KETOROLAC TROMETHAMINE 30 MG/ML VIAL IV STA (21:06)
[2017-04-19] MEDS ORDERED: PROCHLORPERAZINE 5 MG/ML 2 ML VIAL IV STA (21:06)
[2017-04-19] MEDS ORDERED: DiphenhydrAMINE HCL 50 MG/ML VIAL IV STA (21:06)
[2017-04-19] MEDS ORDERED: ALBUTEROL 0.5% NEB SOLN 2.5 MG/0.5 ML VIAL INH STA (21:06)
[2017-04-19 21:30] LABS: HEMATOCRIT 39.7 % (37-47); MEAN CELL VOLUME 84.8 fL (80-100); MEAN CORPUSCULAR HEMOGLOBIN 28.2 pg (25-34); MEAN CORPUSCULAR HGB CONC 33.2 g/dl (32-36); MEAN PLATELET VOLUME 8.6 fL (7.4-10.4); PLATELET COUNT 353 K/uL (130-400); RED BLOOD COUNT 4.68 M/uL (4.2-5.4); WHITE BLOOD COUNT 13.93 K/uL (4.8-10.8)
[2017-04-19 21:34] VITALS: O2SAT 98
--- NOTE | 2017-04-19 21:39 | DIAGNOSTIC IMAGING REPORT ---
CHEST ONE VIEW PORTABLE HISTORY: Atypical CHEST PAIN COMPARISON: Chest 04/04/2017. FINDINGS: The lungs are clear. Cardiac silhouette is normal in size. No pleural effusions. No pneumothorax. IMPRESSION: No acute process. Electronically signed by: Reg Anderson M.D. 04/19/2017 9:38 PM Dictated Date/Time: 04/19/2017 9:36 PM
[2017-04-19 21:47] LABS: ALT/SGPT 43 U/L (12-78); BLOOD UREA NITROGEN 11 mg/dl (7-18); BUN/CREATININE RATIO 15.8 (10-20); CARBON DIOXIDE 27 mmol/L (21-32); CHLORIDE 101 mmol/L (98-107); CREATININE 0.71 mg/dl (0.60-1.20); GLUCOSE 92 mg/dl (70-99); POTASSIUM 3.6 mmol/L (3.5-5.1); SODIUM 138 mmol/L (136-145)
[2017-04-19 21:52] LABS: ALKALINE PHOSPHATASE 160 U/L (45-117); AST/SGOT 16 U/L (15-37); CKMB/CK RATIO 3.5 (0-3.0)
--- NOTE | 2017-04-19 22:22 | EMERGENCY ROOM VISIT NOTE ---
History Report prepared by Tamera: Viridiana Melendez Under the Supervision of: Dr. Favian Pearl M.D. First contact with patient: 20:59 Chief Complaint: CHEST PAIN Stated Complaint: CHEST AND BACK PAIN Nursing Triage Summary: pt c/o chest pain that began approx 15:00 today when she was washing dishes. pt reports hx chest pain, denies DE hx or stents placed. pt denies cough and dizziness. states she has some sob and nausea. states pain is intermittent, left sided radiating into back. pt alert and oriented x4, breathing regularly and independently. History of Present Illness The patient is a 56 year old female who presents to the Emergency Room with complaints of constant left-sided chest pain for the past 6 hours. The patient was washing dishes when her pain started at 3pm this afternoon. She states that her pain has been constant since then. Her pain is worsened with palpation. She rates her current pain as a 9/10 in severity. The patient states that her pain radiates around into the left side of her back. She did get short of breath with the pain. She has never experienced pain like this before. The patient had a stress test a couple of months ago that was normal. She has never had a cardiac catheterization. She denies cough, nausea, vomiting, and diarrhea. She did take an aspirin [employer]. Source of History: patient Onset: 6 hours [employer] Position: chest (left) Symptom Intensity: 9/10 Quality: other (radiating) Timing: constant Modifying Factors (Worsening): other (palpation) Associated Symptoms: + SOB, + back pain, No cough, No nausea, No vomiting, No diarrhea Review of Systems See HPI for pertinent positives & negatives. A total of 10 systems reviewed and were otherwise negative. Past Medical & Surgical Medical Problems: (1) Abdominal pain (2) Cervicalgia (3) Depression with anxiety (4) DM type 2 (diabetes mellitus, type 2) (5) Gastroparesis (6) GERD (gastroesophageal reflux disease) (7) IBS (irritable bowel syndrome) (8) Moderate persistent asthma (9) Obesity Surgical Problems: (1) H/O dilation and curettage (2) H/O: hysterectomy (3) History of tonsillectomy and adenoidectomy (4) History of tubal ligation Social History Problems: (1) Herpes simplex Family History FH: cancer FATHER Heart disease Social History Smoking Status: Former Smoker Alcohol Use: none Drug Use: none Housing Status: lives with significant other Occupation Status: employed Current/Historical Medications Scheduled Amitriptyline HCl (Amitriptyline HCl), 100 MG PO HS Aspirin (Aspirin), 81 MG PO DAILY Atorvastatin (Lipitor), 80 MG PO DAILY Buspirone Hcl (Buspirone Hcl), 5 MG PO BID Duloxetine HCl (Duloxetine HCl), 60 MG PO DAILY Esomeprazole Magnesium (Esomeprazole Magnesium), 40 MG PO QAM Estradiol Vaginal (Estrace), 1 APPLN PV 2XWK Ferrous Sulfate (Ferrous Sulfate), 325 MG PO TIDM Fluticasone Prop/Salmeterol (Advair Diskus 500/50 60 Dose), 1 PUFF INH BID Fluticasone Propionate (Fluticasone Propionate), 1 SPRAYS JG BID Hydroxyzine Pamoate (Vistaril), 25 MG PO BID Insulin Glargine (Lantus Solostar), 5 UNITS SC HS Lisinopril (Lisinopril), 2.5 MG PO DAILY Metformin HCl (Metformin HCl), 500 MG PO TID Metoclopramide Hcl (Reglan), 10 MG PO ACHS Multivitamin (Multivitamin), 1 TAB PO DAILY Oxybutynin Chloride Er (Ditropan Xl), 10 MG PO QAM Polyethylene (Polyethylene Glycol 3350), 17 GM PO QAM Potassium Gluconate (Potassium Gluconate), 1,190 MG PO DAILY Ranitidine HCl (Ranitidine HCl), 150 MG PO HS Senna/Docusate Sod (Senokot S), 1 TAB PO QAM Sucralfate (Sucralfate), 1 GM PO ACHS Scheduled PRN Ihktvya-Vodkfcjjbtlhb-Gejrpgbv (Excedrin Migraine), 1 DOSE PO DIRECTED PRN for Migraine Dicyclomine Hcl (Dicyclomine Hcl), 10 MG PO QID PRN for Pain Ipratropium-Albuterol (Duoneb), 1 TREATMENT INH QID PRN for SOB/Wheezing Meclizine HCl (Meclizine HCl), 1 TAB PO TID PRN for Dizziness or Vertigo Melatonin (Kp Melatonin), 1-2 TABS PO HS PRN for Insomnia Promethazine HCl (Promethazine HCl), 25 MG PO Q6H PRN for Nausea Valacyclovir HCl (Valacyclovir HCl), 500 MG PO TID PRN for Outbreaks Allergies Coded Allergies: Hydromorphone (Verified Allergy, Severe, itching, 04/19/17) Ondansetron (Verified Allergy, Intermediate, hives; RASH, 04/19/17) Sulfa Antibiotics (Verified Allergy, Intermediate, rash, 04/19/17) Aminoglycosides (Verified Allergy, Unknown, >, 04/19/17) Bacitracin (Verified Allergy, Unknown, >, 04/19/17) Ceftriaxone (Verified Allergy, Unknown, Rash, hives and itchiness., ) Cephalexin (Verified Allergy, Unknown, hives, 04/19/17) Latex1 -Allergic Contact Dermititis (Verified Allergy, Unknown, 04/19/17) Neomycin (Verified Allergy, Unknown, >, 04/19/17) Polymyxin B (Verified Allergy, Unknown, >, 04/19/17) Sulfamethoxazole w/Trimethoprim (Verified Allergy, Unknown, Unknown, ) Physical Exam Vital Signs Date Time Temp Pulse Resp B/P (MAP) Pulse Ox O2 Delivery O2 Flow Rate FiO2 04/19/17 22:42 85 18 96/67 94 04/19/17 21:34 99 Room Air 04/19/17 21:34 98 Room Air 04/19/17 21:15 80 16 97/62 98 Room Air 04/19/17 20:17 85 04/19/17 20:05 98 Room Air 04/19/17 20:05 36.7 85 18 117/66 98 Room Air 04/19/17 19:10 86 18 140/80 99 Room Air Physical Exam GENERAL: Patient is a healthy-appearing well-nourished middle-aged female. HEAD: Normocephalic atraumatic EYES: Ocular movements intact pupils equal and react to light OROPHARYNX mucous membranes are moist no exudates present no erythema or edema present NECK: Supple no nuchal rigidity CHEST: Good equal expansion. Tender to the left 8th rib. LUNGS: Clear and equal to auscultation CARDIAC: Normal S1 and S2 ABDOMEN: Soft nontender no guarding BACK: No CVA tenderness. Tender in the 8th rib in the back. EXTREMITIES: No pain upon palpation normal muscle strength in all groups no clubbing cyanosis or edema NEURO: Patient is following commands and answering questions appropriately. Alert and oriented x3 Cranial Nerves 2-12 grossly intact Medical Decision & Procedures ER Provider Diagnostic Interpretation: Radiology results as stated below per my review and radiologist interpretation: CHEST ONE VIEW PORTABLE HISTORY: Atypical CHEST PAIN COMPARISON: Chest 04/04/2017. FINDINGS: The lungs are clear. Cardiac silhouette is normal in size. No pleural effusions. No pneumothorax. IMPRESSION: No acute process. Electronically signed by: Reg Anderson M.D. 04/19/2017 9:38 PM Dictated Date/Time: 04/19/2017 9:36 PM Laboratory Results 04/19/17 21:15 Red Blood Count 4.68, Mean Corpuscular Volume 84.8, Mean Corpuscular Hemoglobin 28.2, Mean Corpuscular Hemoglobin Concent 33.2, Mean Platelet Volume 8.6, Neutrophils (%) (Auto) 47.2, Lymphocytes (%) (Auto) 43.4, Monocytes (%) (Auto) 6.5, Eosinophils (%) (Auto) 2.4, Basophils (%) (Auto) 0.2, Neutrophils # (Auto) 6.57, Lymphocytes # (Auto) 6.05, Monocytes # (Auto) 0.90, Eosinophils # (Auto) 0.34, Basophils # (Auto) 0.03 04/19/17 21:15 Test 04/19/17 21:15 White Blood Count 13.93 K/uL (4.8-10.8) Red Blood Count 4.68 M/uL (4.2-5.4) Hemoglobin 13.2 g/dL (12.0-16.0) Hematocrit 39.7 % (37-47) Mean Corpuscular Volume 84.8 fL (80-100) Mean Corpuscular Hemoglobin 28.2 pg (25-34) Mean Corpuscular Hemoglobin Concent 33.2 g/dl (32-36) Platelet Count 353 K/uL (130-400) Mean Platelet Volume 8.6 fL (7.4-10.4) Neutrophils (%) (Auto) 47.2 % Lymphocytes (%) (Auto) 43.4 % Monocytes (%) (Auto) 6.5 % Eosinophils (%) (Auto) 2.4 % Basophils (%) (Auto) 0.2 % Neutrophils # (Auto) 6.57 K/uL (1.4-6.5) Lymphocytes # (Auto) 6.05 K/uL (1.2-3.4) Monocytes # (Auto) 0.90 K/uL (0.11-0.59) Eosinophils # (Auto) 0.34 K/uL (0-0.5) Basophils # (Auto) 0.03 K/uL (0-0.2) RDW Standard Deviation 45.4 fL (36.4-46.3) RDW Coefficient of Variation 14.8 % (11.5-14.5) Immature Granulocyte % (Auto) 0.3 % Immature Granulocyte # (Auto) 0.04 K/uL (0.00-0.02) Red Blood Cell Morphology Unremarkable Anion Gap 10.0 mmol/L (3-11) Est Creatinine Clear Calc Drug Dose 93.6 ml/min Estimated GFR () 108.8 Estimated GFR (Non- 93.9 BUN/Creatinine Ratio 15.8 (10-20) Calcium Level 9.0 mg/dl (8.5-10.1) Total Bilirubin 0.2 mg/dl (0.2-1) Direct Bilirubin < 0.1 mg/dl (0-0.2) Aspartate Amino Transf (AST/SGOT) 16 U/L (15-37) Alanine Aminotransferase (ALT/SGPT) 43 U/L (12-78) Alkaline Phosphatase 160 U/L (45-117) Total Creatine Kinase 34 U/L (26-192) Creatine Kinase MB 1.2 ng/ml (0.5-3.6) Creatine Kinase MB Ratio 3.5 (0-3.0) Troponin I < 0.015 ng/ml (0-0.045) Total Protein 6.7 gm/dl (6.4-8.2) Albumin 3.3 gm/dl (3.4-5.0) Lipase 205 U/L (73-393) Labs reviewed by ED physician. Medications Administered Medications (Trade) Dose Ordered Sig/Antony Route Start Time Stop Time Status Last Admin Dose Admin Ketorolac Tromethamine (Toradol Inj) 30 mg NOW STAT IV 04/19/17 21:06 04/19/17 21:09 DC 04/19/17 21:29 30 MG Prochlorperazine Edisylate (Compazine Inj) 10 mg NOW STAT IV 04/19/17 21:06 04/19/17 21:09 DC 04/19/17 21:30 10 MG Diphenhydramine HCl (Benadryl Inj) 50 mg NOW STAT IV 04/19/17 21:06 04/19/17 21:09 DC 04/19/17 21:28 50 MG Albuterol (Ventolin Hfa Inhaler) 2 puffs NOW STAT INH 04/19/17 21:06 04/19/17 21:09 DC 04/19/17 22:37 2 PUFFS Albuterol Sulfate (Ventolin 0.5% 2.5MG/0.5ML Neb) 2.5 mg NOW STAT INH 04/19/17 21:06 04/19/17 21:09 DC 04/19/17 21:27 2.5 MG ECG Indication: chest pain Rate (beats per minute): 80 Rhythm: normal sinus Findings: no acute ischemic change, no ectopy ED Course 2058: Past medical records reviewed. The patient was evaluated in room C7. A complete history and physical examination was performed. 2105: Albuterol sulfate 2.5 mg INH, Albuterol 2 puffs INH, Benadryl 50 mg IV, Compazine 10 mg IV, Toradol 30 mg IV Medical Decision Differential diagnosis: Etiologies such as cardiac ischemia, aortic dissection, pulmonary embolism, pneumonia, pneumothorax, musculoskeletal, infections, pericarditis, myocarditis , esophageal rupture, gastrointestinal, as well as others were entertained. Medication Reconciliation: I attest that I have personally reviewed the patient' s current medication list. Blood Pressure Screening: Patient was found to have an elevated blood pressure and was referred to their primary care doctor for recheck and further treatment. This is a 56-year-old female who presents emergency department complaining of left-sided chest pain along with left-sided back pain. The patient does have tenderness to the left rib area. She has normal CK-MB and troponin as well as EKG. Chest x-ray does not show any evidence of pneumonia. The patient does not appear to be in any acute distress. I do not she any evidence of acute process. The patient was given an IV along with Toradol normal saline bolus Benadryl and Compazine. Repeat examination revealed improvement patient's symptoms. I do feel that the patient is well enough to be discharged home for follow-up with her patient primary care physician. Patient was in agreement with the treatment plan. Impression Primary Impression: Chest wall pain Scribe Attestation The scribe's documentation has been prepared under my direction and personally reviewed by me in its entirety. I confirm that the note above accurately reflects all work, treatment, procedures, and medical decision making performed by me. Departure Information Dispostion Home / Self-Care Referrals No Doctor, Assigned (PCP) Randy Venegas M.D. Eaton, Jeffrey G., M.D. Forms HOME CARE DOCUMENTATION FORM, IMPORTANT VISIT INFORMATION, School Instructions, Work Instructions Patient Instructions ED Chest Pain Costochondritis, My [facility] Additional Instructions Follow up with DR Ivey's office You were found to have an elevated blood pressure today (>120 sytolic or >90 diastolic). Per medicare guidelines, you need to follow up with this blood pressure screening with your Primary Care Physician (PCP). For a new PCP call [phone]. You have been examined and treated today on an emergency basis only. This is not a substitute for, or an effort to provide, complete comprehensive medical care. It is impossible to recognize and treat all injuries or illnesses in a single emergency department visit. It is therefore important that you follow up closely with Dr Venegas. Call as soon as possible for an appointment. Thank you for your time and consideration. I look forward to speaking with you again soon. Please don't hesitate to call us if you have any questions.
[2017-04-19 22:42] VITALS: BP 96/67; PULSE 85; O2SAT 94
[2017-04-19 22:57] LABS: BASO % 0.2 %; BASO ABS # 0.03 K/uL (0-0.2); COMPLETE YES; EOS % 2.4 %; IG% 0.3 %; LYMPH % 43.4 %; LYMPH ABS # 6.05 K/uL (1.2-3.4); MONO % 6.5 %; NEUT % 47.2 %
[2017-09-22] MEDS ORDERED: DTR/5 PO (14:15)
[2017-09-22] MEDS ORDERED: PROM25TA16 PO (14:59)
[2017-09-22] MEDS ORDERED: POTA1TAB PO (15:03)
[2017-09-22] MEDS ORDERED: ASPI1TAB83 PO (15:29)
[2017-09-22] MEDS ORDERED: MULT-506 PO (15:53)
[2017-09-22] MEDS ORDERED: RANI150T2 PO (15:56)
[2017-09-22] MEDS ORDERED: SUCR1TAB PO (15:56)
[2017-09-22] MEDS ORDERED: CYM60 PO (15:56)
[2017-09-22] MEDS ORDERED: MRLP527 PO (15:56)
[2017-09-22] MEDS ORDERED: ADVIN50/60 INH (16:10)
[2017-09-22] MEDS ORDERED: BUSP5TAB59 PO (16:26)
[2017-09-22] MEDS ORDERED: GLC500 PO (16:26)
[2017-09-22] MEDS ORDERED: ESTCR PV (18:18)
[2017-09-22] MEDS ORDERED: MELA1CAP9 PO (19:14)
[2017-09-22] MEDS ORDERED: SNG10 PO (19:14)
[2017-09-22] MEDS ORDERED: HYDR1CAP85 PO (19:14)
== END 2017-04-19 22:42 | disposition home or self-care (01) ==
LOC: C.EDB 19:03 → C.EDC 22:42
DX: R07.89 Other chest pain (principal); M54.9 Dorsalgia, unspecified; E11.9 Type 2 diabetes mellitus without complications; K21.9 Gastro-esophageal reflux disease without esophagitis; F41.8 Other specified anxiety disorders; K58.9 Irritable bowel syndrome, unspecified; J45.40 Moderate persistent asthma, uncomplicated; Z90.710 Acquired absence of both cervix and uterus; Z98.51 Tubal ligation status; Z98.890 Other specified postprocedural states; Z87.891 Personal history of nicotine dependence; Z79.82 Long term (current) use of aspirin; Z79.4 Long term (current) use of insulin; Z79.84 Long term (current) use of oral hypoglycemic drugs; Z79.899 Other long term (current) drug therapy; Z88.2 Allergy status to sulfonamides; Z88.5 Allergy status to narcotic agent; Z88.8 Allergy status to other drugs, medicaments and biological substances; Z91.040 Latex allergy status

== ENCOUNTER 2017-04-22 20:52 | Emergency (ER) | payer OTHER ==
[~2017-04-22] VITALS: Ht 154.9 cm; Wt 97.9 kg
[2017-04-22 20:57] VITALS: TEMP 36.5; Ht 154.9 cm; Wt 97.9 kg
[2017-04-22] MEDS ORDERED: MoRPHine SULFATE 4 MG/ML 1 ML CARP\\VIAL IV STA (21:44)
[2017-04-22] MEDS ORDERED: SODIUM CHLORIDE 0.9% 1000ML 1,000 ML IV STA (21:44)
[2017-04-22] MEDS ORDERED: SODIUM CHLORIDE 0.9% 500ML 500 ML IV STA (21:44)
[2017-04-22] MEDS ORDERED: PROMETHAZINE HCL INJ 25 MG in SODIUM CHLORIDE 0.9% 50ML 50 ML IV STA (21:44)
[2017-04-22 22:03] LABS: BASO % 0.2 %; BASO ABS # 0.03 K/uL (0-0.2); COMPLETE YES; EOS % 2.5 %; HEMATOCRIT 38.5 % (37-47); IG% 0.2 %; LYMPH % 35.5 %; LYMPH ABS # 4.49 K/uL (1.2-3.4); MEAN CELL VOLUME 84.1 fL (80-100); MEAN CORPUSCULAR HEMOGLOBIN 28.4 pg (25-34); MEAN CORPUSCULAR HGB CONC 33.8 g/dl (32-36); MEAN PLATELET VOLUME 8.9 fL (7.4-10.4); MONO % 7.3 %; NEUT % 54.3 %; PLATELET COUNT 355 K/uL (130-400); RED BLOOD COUNT 4.58 M/uL (4.2-5.4); WHITE BLOOD COUNT 12.65 K/uL (4.8-10.8)
[2017-04-22 22:05] VITALS: O2SAT 95
[2017-04-22 22:19] LABS: ALT/SGPT 51 U/L (12-78); BLOOD UREA NITROGEN 12 mg/dl (7-18); BUN/CREATININE RATIO 12.2 (10-20); CALCIUM 9.1 mg/dl (8.5-10.1); CARBON DIOXIDE 24 mmol/L (21-32); CHLORIDE 104 mmol/L (98-107); CREATININE 0.94 mg/dl (0.60-1.20); GLUCOSE 120 mg/dl (70-99); SODIUM 136 mmol/L (136-145)
[2017-04-22 22:22] LABS: ALKALINE PHOSPHATASE 166 U/L (45-117); AST/SGOT 21 U/L (15-37)
[2017-04-22 22:29] LABS: URINE APPEARANCE CLEAR (CLEAR); URINE BILIRUBIN NEG (NEG); URINE COLOR YELLOW; URINE NITRITE NEG (NEG); URINE PH 6.5 (4.5-7.5); UROBILINOGEN NEG (NEG)
[2017-04-22 22:31] LABS: MANUAL MICROSCOPIC REQUIRED? NO; REVIEW REQ? NO
--- NOTE | 2017-04-22 22:54 | DIAGNOSTIC IMAGING REPORT ---
Right upper quadrant ultrasound GALLBLADDER-ABD LIMITED CLINICAL HISTORY: rug pain nausea TECHNIQUE: Ultrasound COMPARISON STUDY: 04/04/2017 FINDINGS: Fatty infiltration of liver. Normal pancreas. Normal right kidney. Normal gallbladder. 4 mm common bile duct. IMPRESSION: Fatty infiltration of liver. Otherwise normal study. No change from prior exams Electronically signed by: Jose Collins M.D. 04/22/2017 10:53 PM Dictated Date/Time: 04/22/2017 10:52 PM
[2017-04-22] MEDS ORDERED: PHENERGAN 25MG HOMEPACK PO ONE (23:45)
[2017-04-22 23:52] VITALS: BP 123/76; PULSE 79; O2SAT 94
--- NOTE | 2017-04-23 05:25 | EMERGENCY ROOM VISIT NOTE ---
History First contact with patient: 21:26 Chief Complaint: ABDOMINAL PAIN Stated Complaint: STOMACH PAIN, VOMITING, DIARRHEA Nursing Triage Summary: RIGHT SIDE ABD PAIN FOR 4 HRS History of Present Illness The patient is a 56 year old female who presents to the Emergency Room with complaints of nausea, vomiting, diarrhea and right upper quadrant pain for the past 4 hours. Patient has a scheduled HIDA scan on Tuesday. She is a thick gallbladder. She describes the pain as aching, ranging in severity currently 5 out of 10. Nothing makes it better or worse. It does not radiate. She had pork and sauerkraut prior to the episode. Patient denies chest pain, dyspnea, fever, chills, cough, headache, neck pain, back pain, urinary symptoms. Review of Systems See HPI for pertinent positives & negatives. A total of 10 systems reviewed and were otherwise negative. Past Medical/Surgical History Medical Problems: (1) Abdominal pain (2) Cervicalgia (3) Depression with anxiety (4) DM type 2 (diabetes mellitus, type 2) (5) Gastroparesis (6) GERD (gastroesophageal reflux disease) (7) IBS (irritable bowel syndrome) (8) Moderate persistent asthma (9) Obesity Surgical Problems: (1) H/O dilation and curettage (2) H/O: hysterectomy (3) History of tonsillectomy and adenoidectomy (4) History of tubal ligation Social History Problems: (1) Herpes simplex Family History FH: cancer FATHER Heart disease Social History Smoking Status: Former Smoker Alcohol Use: none Drug Use: none Housing Status: lives with significant other Occupation Status: employed Current/Historical Medications Scheduled Amitriptyline HCl (Amitriptyline HCl), 100 MG PO HS Aspirin (Aspirin), 81 MG PO DAILY Atorvastatin (Lipitor), 80 MG PO HS Buspirone Hcl (Buspirone Hcl), 5 MG PO BID Duloxetine HCl (Duloxetine HCl), 60 MG PO DAILY Esomeprazole Magnesium (Esomeprazole Magnesium), 40 MG PO QAM Estradiol Vaginal (Estrace), 1 APPLN PV 2XWK Ferrous Sulfate (Ferrous Sulfate), 325 MG PO TIDM Fluticasone Prop/Salmeterol (Advair Diskus 500/50 60 Dose), 1 PUFF INH BID Fluticasone Propionate (Fluticasone Propionate), 1 SPRAYS JG BID Hydroxyzine Pamoate (Vistaril), 25 MG PO BID Insulin Glargine (Lantus Solostar), 5 UNITS SC HS Lisinopril (Lisinopril), 2.5 MG PO DAILY Metformin HCl (Metformin HCl), 500 MG PO TID Metoclopramide Hcl (Reglan), 10 MG PO ACHS Mirabegron (Myrbetriq Er), 25 MG PO QAM Multivitamin (Multivitamin), 1 TAB PO DAILY Polyethylene (Polyethylene Glycol 3350), 17 GM PO QAM Potassium Gluconate (Potassium Gluconate), 1,190 MG PO DAILY Ranitidine HCl (Ranitidine HCl), 150 MG PO HS Senna/Docusate Sod (Senokot S), 1 TAB PO QAM Sucralfate (Sucralfate), 1 GM PO ACHS Scheduled PRN Weocjdm-Asgaowjuvwbys-Dimwwldw (Excedrin Migraine), 1 DOSE PO DIRECTED PRN for Migraine Dicyclomine Hcl (Dicyclomine Hcl), 10 MG PO QID PRN for Pain Ipratropium-Albuterol (Duoneb), 1 TREATMENT INH QID PRN for SOB/Wheezing Meclizine HCl (Meclizine HCl), 1 TAB PO TID PRN for Dizziness or Vertigo Melatonin (Kp Melatonin), 1-2 TABS PO HS PRN for Insomnia Promethazine HCl (Promethazine HCl), 25 MG PO Q6H PRN for Nausea Valacyclovir HCl (Valacyclovir HCl), 500 MG PO TID PRN for Outbreaks Allergies Coded Allergies: Hydromorphone (Verified Allergy, Severe, itching, 04/22/17) Ondansetron (Verified Allergy, Intermediate, hives; RASH, 04/22/17) Sulfa Antibiotics (Verified Allergy, Intermediate, rash, 04/22/17) Aminoglycosides (Verified Allergy, Unknown, >, 04/22/17) Bacitracin (Verified Allergy, Unknown, >, 04/22/17) Ceftriaxone (Verified Allergy, Unknown, Rash, hives and itchiness., ) Cephalexin (Verified Allergy, Unknown, hives, 04/22/17) Latex1 -Allergic Contact Dermititis (Verified Allergy, Unknown, 04/22/17) Neomycin (Verified Allergy, Unknown, >, 04/22/17) Polymyxin B (Verified Allergy, Unknown, >, 04/22/17) Sulfamethoxazole w/Trimethoprim (Verified Allergy, Unknown, Unknown, ) Physical Exam Vital Signs Date Time Temp Pulse Resp B/P (MAP) Pulse Ox O2 Delivery O2 Flow Rate FiO2 04/22/17 23:52 79 20 123/76 94 Room Air 04/22/17 22:51 86 20 122/81 94 Room Air 04/22/17 22:05 95 Room Air 04/22/17 20:57 36.5 92 16 120/81 96 Room Air Pain Rating (0-10): 3.0 Physical Exam VITALS: Vitals are noted on the nurse's note and reviewed by myself. Vital signs stable. GENERAL: Pleasant female, in no acute distress, nondiaphoretic, well-developed well-nourished. SKIN: The skin was without rashes, erythema, edema, or bruising. There is no tenting of the skin. Capillary reflex less than 2 seconds. HEAD: Normocephalic atraumatic. EARS: External auditory canals clear, tympanic membranes pearly ramirez without erythema or effusion bilaterally. EYES: Pupils equal round and reactive to light and accommodation. Conjunctivae without injection, sclerae without icterus. Extraocular movements intact. NOSE: Patent, turbinates without inflammation or discharge. MOUTH: Mucous membranes moist. Pharynx without erythema or exudate. Uvula midline. Airway patent. Tongue does not deviate. NECK: Supple without nuchal rigidity. No lymphadenopathy. No thyromegaly. Cervical spine is nontender. No JVD. HEART: Regular rate and rhythm without murmurs gallops or rubs. LUNGS: Clear to auscultation bilaterally without wheezes, rales or rhonchi. No dullness to percussion. No retractions or accessory muscle use. ABDOMEN: Positive bowel sounds x 4. Normal tympanic percussion. Soft, tender to palpation right upper quadrant, no CVA tenderness protuberant, obese without masses or organomegaly. No guarding or rebound tenderness. MUSCULOSKELETAL: No muscle atrophy, erythema, or edema noted. NEURO: Patient was alert and oriented to person place and time. Normal sensation to light and sharp touch. No focal neurological deficits. Medical Decision & Procedures Laboratory Results 04/22/17 21:50 Red Blood Count 4.58, Mean Corpuscular Volume 84.1, Mean Corpuscular Hemoglobin 28.4, Mean Corpuscular Hemoglobin Concent 33.8, Mean Platelet Volume 8.9, Neutrophils (%) (Auto) 54.3, Lymphocytes (%) (Auto) 35.5, Monocytes (%) (Auto) 7.3, Eosinophils (%) (Auto) 2.5, Basophils (%) (Auto) 0.2, Neutrophils # (Auto) 6.86, Lymphocytes # (Auto) 4.49, Monocytes # (Auto) 0.92, Eosinophils # (Auto) 0.32, Basophils # (Auto) 0.03 04/22/17 21:50 Test 04/22/17 21:40 04/22/17 21:50 Urine Color YELLOW Urine Appearance CLEAR (CLEAR) Urine pH 6.5 (4.5-7.5) Urine Specific Henniker 1.010 (1.000-1.030) Urine Protein NEG (NEG) Urine Glucose (UA) NEG (NEG) Urine Ketones NEG (NEG) Urine Occult Blood NEG (NEG) Urine Nitrite NEG (NEG) Urine Bilirubin NEG (NEG) Urine Urobilinogen NEG (NEG) Urine Leukocyte Esterase SMALL (NEG) Urine WBC (Auto) 1-5 /hpf (0-5) Urine RBC (Auto) 0-4 /hpf (0-4) Urine Hyaline Casts (Auto) 0 /lpf (0-5) Urine Epithelial Cells (Auto) 10-20 /lpf (0-5) Urine Bacteria (Auto) NEG (NEG) White Blood Count 12.65 K/uL (4.8-10.8) Red Blood Count 4.58 M/uL (4.2-5.4) Hemoglobin 13.0 g/dL (12.0-16.0) Hematocrit 38.5 % (37-47) Mean Corpuscular Volume 84.1 fL (80-100) Mean Corpuscular Hemoglobin 28.4 pg (25-34) Mean Corpuscular Hemoglobin Concent 33.8 g/dl (32-36) Platelet Count 355 K/uL (130-400) Mean Platelet Volume 8.9 fL (7.4-10.4) Neutrophils (%) (Auto) 54.3 % Lymphocytes (%) (Auto) 35.5 % Monocytes (%) (Auto) 7.3 % Eosinophils (%) (Auto) 2.5 % Basophils (%) (Auto) 0.2 % Neutrophils # (Auto) 6.86 K/uL (1.4-6.5) Lymphocytes # (Auto) 4.49 K/uL (1.2-3.4) Monocytes # (Auto) 0.92 K/uL (0.11-0.59) Eosinophils # (Auto) 0.32 K/uL (0-0.5) Basophils # (Auto) 0.03 K/uL (0-0.2) RDW Standard Deviation 45.8 fL (36.4-46.3) RDW Coefficient of Variation 14.9 % (11.5-14.5) Immature Granulocyte % (Auto) 0.2 % Immature Granulocyte # (Auto) 0.03 K/uL (0.00-0.02) Anion Gap 8.0 mmol/L (3-11) Est Creatinine Clear Calc Drug Dose 69.8 ml/min Estimated GFR () 77.5 Estimated GFR (Non- 66.9 BUN/Creatinine Ratio 12.2 (10-20) Calcium Level 9.1 mg/dl (8.5-10.1) Total Bilirubin 0.3 mg/dl (0.2-1) Direct Bilirubin < 0.1 mg/dl (0-0.2) Aspartate Amino Transf (AST/SGOT) 21 U/L (15-37) Alanine Aminotransferase (ALT/SGPT) 51 U/L (12-78) Alkaline Phosphatase 166 U/L (45-117) Total Protein 6.7 gm/dl (6.4-8.2) Albumin 3.4 gm/dl (3.4-5.0) Lipase 198 U/L (73-393) Medications Administered Medications (Trade) Dose Ordered Sig/Antony Route Start Time Stop Time Status Last Admin Dose Admin Promethazine HCl 25 mg/Sodium Chloride 51 ml @ 204 mls/hr NOW STAT IV 04/22/17 21:44 04/22/17 21:58 DC 04/22/17 22:07 204 MLS/HR Sodium Chloride 500 ml @ 999 mls/hr Q31M STAT IV 04/22/17 21:44 04/22/17 22:14 DC 04/22/17 21:44 999 MLS/HR Sodium Chloride 1,000 ml @ 125 mls/hr Q8H STAT IV 04/22/17 21:44 04/23/17 00:13 DC 04/22/17 22:52 125 MLS/HR Morphine Sulfate (MoRPHine SULFATE INJ) 4 mg NOW STAT IV 04/22/17 21:44 04/22/17 21:47 DC 04/22/17 22:06 4 MG Promethazine HCl (Phenergan 25MG Home Pack) 1 homepack UD ONCE PO 04/22/17 23:45 04/22/17 23:46 DC 04/22/17 23:52 1 HOMEPACK ED Course Prior records/ancillary studies reviewed. Triage Nursing notes reviewed. The patient's history was concerning for nausea, vomiting, diarrhea, and abdominal pain. Differential diagnosis: Etiologies such as gastroenteritis, food borne illness, infections, appendicitis , diverticulitis, inflammatory bowel disease, obstruction, GI bleed, biliary pathology, as well as others were entertained. Physical examination findings: As above. Abdominal examination revealed minimal right upper quadrant tenderness. Vital signs reviewed and revealed stable. ER treatment provided: IV hydration 1 L NSS. Zofran, morphine On reassessment the patient felt better. Patient was tolerating p.o. intake. Diagnostics interpretation by me: The labs revealed mild leukocytosis, most likely marginalization from vomiting. Hyperglycemia without DKA Imaging studies: Ultrasound negative for acute cholecystitis This appears to be consistent with vomiting and diarrhea with abdominal discomfort. Patient did not have acute abdomen on exam. She is well- appearing. She felt much better after being medicated as above. She is advised to follow-up as scheduled on Tuesday or here in the ER sooner for abdominal pain, fevers, vomiting, worsening signs or symptoms or as needed. By the evaluation outlined above emergent etiologies such as appendicitis, diverticulitis, obstruction, cardiac sources, mesenteric ischemia, aortic pathology, inflammatory bowel disease, renal colic, PUD, UTI, as well as others were deemed relatively unlikely. The pt informed about the findings as listed above. All questions were answered and pleased with the treatment. Return instructions were outlined and the patient was discharged in stable condition. Outpatient prescription management: Phenergan Referral: The patient was referred to their primary care physician for follow-up in 2 to 3 days for a recheck of the current condition. Case reviewed with my attending Medical Decision As above Impression Primary Impression: Nausea, vomiting and diarrhea Additional Impression: Right upper quadrant abdominal pain Departure Information Dispostion Home / Self-Care Condition GOOD Forms Call Back Authorization, HOME CARE DOCUMENTATION FORM, IMPORTANT VISIT INFORMATION Patient Instructions Vomit Diarrhea Self Care, Abdominal Pain - [facility], [facility] Additional Instructions DO NOT drive, drink alcohol, operate machinery, or perform dangerous activities today. You were given medications in the ER that can affect your ability to safely function or operate a vehicle. Phenergan(promethazine) tablets 25mg: Take one every six hours as needed for nausea. Avoid alcohol, operating machinery or dangerous equipment, working on ladders or roofs, DRIVING, or situations where being under the influence may be dangerous. Rest and drink plenty of fluids as tolerated. Slow sips of water or sports drinks are recommended instead of large amounts all at once. Continue current medications. Once your stomach is settled start with a clear liquid diet (jello, soup broth, etc.) and then advance as tolerated. You should avoid full, heavy meals for about 24 hrs from the time your symptoms resolved. Return to the ER for persistent vomiting, fevers, abdominal pain, chest pains, difficulty breathing, black or bloody stools, worsening of your condition, or as needed. Follow up with your primary physician in 2-3 days for a recheck of your current condition. Problem Qualifiers
[2017-09-22] MEDS ORDERED: DTR/5 PO (14:15)
[2017-09-22] MEDS ORDERED: PROM25TA16 PO (14:59)
[2017-09-22] MEDS ORDERED: POTA1TAB PO (15:03)
[2017-09-22] MEDS ORDERED: ASPI1TAB83 PO (15:29)
[2017-09-22] MEDS ORDERED: MULT-506 PO (15:53)
[2017-09-22] MEDS ORDERED: MRLP527 PO (15:56)
[2017-09-22] MEDS ORDERED: RANI150T2 PO (15:56)
[2017-09-22] MEDS ORDERED: SUCR1TAB PO (15:56)
[2017-09-22] MEDS ORDERED: CYM60 PO (15:56)
[2017-09-22] MEDS ORDERED: ADVIN50/60 INH (16:10)
[2017-09-22] MEDS ORDERED: BUSP5TAB59 PO (16:26)
[2017-09-22] MEDS ORDERED: GLC500 PO (16:26)
[2017-09-22] MEDS ORDERED: ESTCR PV (18:18)
[2017-09-22] MEDS ORDERED: MELA1CAP9 PO (19:14)
[2017-09-22] MEDS ORDERED: SNG10 PO (19:14)
[2017-09-22] MEDS ORDERED: HYDR1CAP85 PO (19:14)
== END 2017-04-23 | disposition home or self-care (01) ==
LOC: C.EDB 20:53
DX: R11.2 Nausea with vomiting, unspecified (principal); R19.7 Diarrhea, unspecified; R10.11 Right upper quadrant pain; F41.8 Other specified anxiety disorders; E11.43 Type 2 diabetes mellitus with diabetic autonomic (poly)neuropathy; K21.9 Gastro-esophageal reflux disease without esophagitis; E66.9 Obesity, unspecified; J45.40 Moderate persistent asthma, uncomplicated; Z98.51 Tubal ligation status; Z90.710 Acquired absence of both cervix and uterus; Z80.9 Family history of malignant neoplasm, unspecified; Z87.891 Personal history of nicotine dependence; Z79.82 Long term (current) use of aspirin; Z79.4 Long term (current) use of insulin; Z79.899 Other long term (current) drug therapy; Z68.41 Body mass index [BMI] 40.0-44.9, adult

== ENCOUNTER 2017-04-25 21:33 | Emergency (ER) | payer OTHER ==
[~2017-04-25] VITALS: Ht 154.9 cm; Wt 96.3 kg
[~2017-04-25 21:33] MED LIST changes: -OXYB10TA PO
[2017-04-25 21:36] VITALS: TEMP 36.5; Ht 154.9 cm; Wt 96.3 kg
[2017-04-25 22:22] LABS: BASO % 0.2 %; BASO ABS # 0.03 K/uL (0-0.2); COMPLETE YES; EOS % 2.1 %; HEMATOCRIT 40.3 % (37-47); IG% 0.3 %; LYMPH % 33.8 %; LYMPH ABS # 4.89 K/uL (1.2-3.4); MEAN CELL VOLUME 83.8 fL (80-100); MEAN CORPUSCULAR HEMOGLOBIN 27.9 pg (25-34); MEAN CORPUSCULAR HGB CONC 33.3 g/dl (32-36); MEAN PLATELET VOLUME 8.7 fL (7.4-10.4); MONO % 7.6 %; PLATELET COUNT 405 K/uL (130-400); RED BLOOD COUNT 4.81 M/uL (4.2-5.4); WHITE BLOOD COUNT 14.46 K/uL (4.8-10.8)
[2017-04-25 22:33] LABS: BUN/CREATININE RATIO 9.8 (10-20); CALCIUM 9.2 mg/dl (8.5-10.1); CREATININE 0.89 mg/dl (0.60-1.20); POTASSIUM 3.7 mmol/L (3.5-5.1)
[2017-04-25] MEDS ORDERED: RANITIDINE HCL 50 MG/100 ML D5W IV STA (22:41)
[2017-04-25] MEDS ORDERED: METOCLOPRAMIDE HCL INJ 5 MG/ML 2 ML VIAL IV STA (22:41)
[2017-04-25] MEDS ORDERED: DiphenhydrAMINE HCL 50 MG/ML VIAL IV STA (22:41)
[2017-04-25] MEDS ORDERED: SODIUM CHLORIDE 0.9% 1000ML 1,000 ML IV STA (22:41)
[2017-04-25] MEDS ORDERED: METOCLOPRAMIDE HCL 10 MG TAB PO STA (23:43)
[2017-04-26] MEDS ORDERED: METOCLOPRAMIDE HCL 10 MG TAB PO SCH
[2017-04-26 00:33] VITALS: BP 122/67; PULSE 78; O2SAT 98
--- NOTE | 2017-04-26 03:56 | EMERGENCY ROOM VISIT NOTE ---
History First contact with patient: 22:38 Chief Complaint: VOMITING Stated Complaint: VOMTING,STOMACH PAIN Nursing Triage Summary: Patient reports having a HIDA scan as an outpatient procedure today at 1400. Patient tolerated the test well but, 15 minutes after leaving, developed some right upper quadrant abdominal pain. Patient then began vomiting upon arrival home. Patient has taken two phenergan tablets and some tums without relief of her symptoms. History of Present Illness The patient is a 56 year old female who presents to the Emergency Room with complaints of nausea, vomiting, and right upper quadrant pain for the past 4 hours after having her hida scan today who does not know the results. She describes the pain as aching, ranging in severity currently 5 out of 10. Nothing makes it better or worse. It does not radiate. She tried her Phenergan with no improvement of symptoms.. Patient denies chest pain, dyspnea , fever, chills, cough, headache, neck pain, back pain, urinary symptoms. Review of Systems See HPI for pertinent positives & negatives. A total of 10 systems reviewed and were otherwise negative. Past Medical/Surgical History Medical Problems: (1) Abdominal pain (2) Cervicalgia (3) Depression with anxiety (4) DM type 2 (diabetes mellitus, type 2) (5) Gastroparesis (6) GERD (gastroesophageal reflux disease) (7) IBS (irritable bowel syndrome) (8) Moderate persistent asthma (9) Obesity Surgical Problems: (1) H/O dilation and curettage (2) H/O: hysterectomy (3) History of tonsillectomy and adenoidectomy (4) History of tubal ligation Social History Problems: (1) Herpes simplex Family History FH: cancer FATHER Heart disease Social History Smoking Status: Former Smoker Alcohol Use: none Drug Use: none Housing Status: lives with significant other Occupation Status: employed Current/Historical Medications Scheduled Amitriptyline HCl (Amitriptyline HCl), 100 MG PO HS Aspirin (Aspirin), 81 MG PO DAILY Atorvastatin (Lipitor), 80 MG PO HS Buspirone Hcl (Buspirone Hcl), 5 MG PO BID Duloxetine HCl (Duloxetine HCl), 60 MG PO DAILY Esomeprazole Magnesium (Esomeprazole Magnesium), 40 MG PO QAM Estradiol Vaginal (Estrace), 1 APPLN PV 2XWK Ferrous Sulfate (Ferrous Sulfate), 325 MG PO TIDM Fluticasone Prop/Salmeterol (Advair Diskus 500/50 60 Dose), 1 PUFF INH BID Fluticasone Propionate (Fluticasone Propionate), 1 SPRAYS JG BID Hydroxyzine Pamoate (Vistaril), 25 MG PO BID Insulin Glargine (Lantus Solostar), 5 UNITS SC HS Lisinopril (Lisinopril), 2.5 MG PO DAILY Metformin HCl (Metformin HCl), 500 MG PO TID Metoclopramide Hcl (Reglan), 10 MG PO ACHS Mirabegron (Myrbetriq Er), 25 MG PO QAM Multivitamin (Multivitamin), 1 TAB PO DAILY Polyethylene (Polyethylene Glycol 3350), 17 GM PO QAM Potassium Gluconate (Potassium Gluconate), 1,190 MG PO DAILY Ranitidine HCl (Ranitidine HCl), 150 MG PO HS Senna/Docusate Sod (Senokot S), 1 TAB PO QAM Sucralfate (Sucralfate), 1 GM PO ACHS Scheduled PRN Dphcizh-Missngjixyajp-Fahhmypb (Excedrin Migraine), 1 DOSE PO DIRECTED PRN for Migraine Dicyclomine Hcl (Dicyclomine Hcl), 10 MG PO QID PRN for Pain Ipratropium-Albuterol (Duoneb), 1 TREATMENT INH QID PRN for SOB/Wheezing Meclizine HCl (Meclizine HCl), 1 TAB PO TID PRN for Dizziness or Vertigo Melatonin (Kp Melatonin), 1-2 TABS PO HS PRN for Insomnia Promethazine HCl (Promethazine HCl), 25 MG PO Q6H PRN for Nausea Valacyclovir HCl (Valacyclovir HCl), 500 MG PO TID PRN for Outbreaks Allergies Coded Allergies: Hydromorphone (Verified Allergy, Severe, itching, 04/22/17) Ondansetron (Verified Allergy, Intermediate, hives; RASH, 04/22/17) Sulfa Antibiotics (Verified Allergy, Intermediate, rash, 04/22/17) Aminoglycosides (Verified Allergy, Unknown, >, 04/22/17) Bacitracin (Verified Allergy, Unknown, >, 04/22/17) Ceftriaxone (Verified Allergy, Unknown, Rash, hives and itchiness., ) Cephalexin (Verified Allergy, Unknown, hives, 04/22/17) Latex1 -Allergic Contact Dermititis (Verified Allergy, Unknown, 04/22/17) Neomycin (Verified Allergy, Unknown, >, 04/22/17) Polymyxin B (Verified Allergy, Unknown, >, 04/22/17) Sulfamethoxazole w/Trimethoprim (Verified Allergy, Unknown, Unknown, ) Physical Exam Vital Signs Date Time Temp Pulse Resp B/P (MAP) Pulse Ox O2 Delivery O2 Flow Rate FiO2 04/26/17 00:33 78 18 122/67 98 Room Air 04/25/17 23:16 94 18 112/72 98 Room Air 04/25/17 22:57 94 16 113/82 94 Room Air 04/25/17 22:06 100 04/25/17 21:36 36.5 110 18 132/86 95 Room Air Pain Rating (0-10): 1.0 Physical Exam VITALS: Vitals are noted on the nurse's note and reviewed by myself. Vital signs mildly tachycardic. GENERAL: Pleasant female, in no acute distress, nondiaphoretic, well-developed well-nourished. SKIN: The skin was without rashes, erythema, edema, or bruising. There is no tenting of the skin. Capillary reflex less than 2 seconds. HEAD: Normocephalic atraumatic. EARS: External auditory canals clear, tympanic membranes pearly ramirze without erythema or effusion bilaterally. EYES: Pupils equal round and reactive to light and accommodation. Conjunctivae without injection, sclerae without icterus. Extraocular movements intact. NOSE: Patent, turbinates without inflammation or discharge. MOUTH: Mucous membranes moist. Pharynx without erythema or exudate. Uvula midline. Airway patent. Tongue does not deviate. NECK: Supple without nuchal rigidity. No lymphadenopathy. No thyromegaly. Cervical spine is nontender. No JVD. HEART: Regular rate and rhythm mildly tachycardic. LUNGS: Clear to auscultation bilaterally without wheezes, rales or rhonchi. No dullness to percussion. No retractions or accessory muscle use. ABDOMEN: Positive bowel sounds x 4. Normal tympanic percussion. Soft, minimally tender to palpation epigastric region, no CVA tenderness, without masses or organomegaly. Cesar sign negative. No guarding or rebound tenderness. MUSCULOSKELETAL: No muscle atrophy, erythema, or edema noted. NEURO: Patient was alert and oriented to person place and time. Normal sensation to light and sharp touch. No focal neurological deficits. Medical Decision & Procedures Laboratory Results 04/25/17 21:57 Red Blood Count 4.81, Mean Corpuscular Volume 83.8, Mean Corpuscular Hemoglobin 27.9, Mean Corpuscular Hemoglobin Concent 33.3, Mean Platelet Volume 8.7, Neutrophils (%) (Auto) 56.0, Lymphocytes (%) (Auto) 33.8, Monocytes (%) (Auto) 7.6, Eosinophils (%) (Auto) 2.1, Basophils (%) (Auto) 0.2, Neutrophils # (Auto) 8.10, Lymphocytes # (Auto) 4.89, Monocytes # (Auto) 1.10, Eosinophils # (Auto) 0.30, Basophils # (Auto) 0.03 04/25/17 21:57 Test 04/25/17 21:57 White Blood Count 14.46 K/uL (4.8-10.8) Red Blood Count 4.81 M/uL (4.2-5.4) Hemoglobin 13.4 g/dL (12.0-16.0) Hematocrit 40.3 % (37-47) Mean Corpuscular Volume 83.8 fL (80-100) Mean Corpuscular Hemoglobin 27.9 pg (25-34) Mean Corpuscular Hemoglobin Concent 33.3 g/dl (32-36) Platelet Count 405 K/uL (130-400) Mean Platelet Volume 8.7 fL (7.4-10.4) Neutrophils (%) (Auto) 56.0 % Lymphocytes (%) (Auto) 33.8 % Monocytes (%) (Auto) 7.6 % Eosinophils (%) (Auto) 2.1 % Basophils (%) (Auto) 0.2 % Neutrophils # (Auto) 8.10 K/uL (1.4-6.5) Lymphocytes # (Auto) 4.89 K/uL (1.2-3.4) Monocytes # (Auto) 1.10 K/uL (0.11-0.59) Eosinophils # (Auto) 0.30 K/uL (0-0.5) Basophils # (Auto) 0.03 K/uL (0-0.2) RDW Standard Deviation 45.8 fL (36.4-46.3) RDW Coefficient of Variation 14.9 % (11.5-14.5) Immature Granulocyte % (Auto) 0.3 % Immature Granulocyte # (Auto) 0.04 K/uL (0.00-0.02) Anion Gap 8.0 mmol/L (3-11) Est Creatinine Clear Calc Drug Dose 73.1 ml/min Estimated GFR () 82.8 Estimated GFR (Non- 71.4 BUN/Creatinine Ratio 9.8 (10-20) Calcium Level 9.2 mg/dl (8.5-10.1) Total Bilirubin 0.3 mg/dl (0.2-1) Aspartate Amino Transf (AST/SGOT) 19 U/L (15-37) Alanine Aminotransferase (ALT/SGPT) 48 U/L (12-78) Alkaline Phosphatase 157 U/L (45-117) Total Protein 7.0 gm/dl (6.4-8.2) Albumin 3.5 gm/dl (3.4-5.0) Globulin 3.5 gm/dl (2.5-4.0) Albumin/Globulin Ratio 1.0 (0.9-2) Lipase 151 U/L (73-393) Medications Administered Medications (Trade) Dose Ordered Sig/Antony Route Start Time Stop Time Status Last Admin Dose Admin Metoclopramide HCl (Reglan Inj) 10 mg NOW STAT IV 04/25/17 22:41 04/25/17 22:43 DC 04/25/17 22:52 10 MG Diphenhydramine HCl (Benadryl Inj) 25 mg NOW STAT IV 04/25/17 22:41 04/25/17 22:43 DC 04/25/17 22:52 25 MG Ranitidine HCl (zANTac IV) 50 mg NOW STAT IV 04/25/17 22:41 04/25/17 22:43 DC 04/25/17 22:52 50 MG Sodium Chloride 1,000 ml @ 999 mls/hr Q1H1M STAT IV 04/25/17 22:41 04/25/17 23:41 DC 04/25/17 21:57 999 MLS/HR ED Course Prior records/ancillary studies reviewed. Triage Nursing notes reviewed. The patient's history was concerning for abdominal pain. Differential diagnosis: Etiologies such as appendicitis, diverticulitis, PUD, biliary pathology, UTI, pancreatitis, obstruction, mesenteric ischemia, aortic pathology, infections, inflammatory bowel disease, renal colic, as well as others were entertained. Physical examination findings: As above. ER treatment provided: Benadryl, Reglan, Zantac, IV fluids On reassessment the patient felt better. Diagnostics interpreted by me: The labs revealed stable H&H. Mild leukocytosis most likely marginalization from vomiting Imaging studies: HIDA scan was reviewed from [facility] and was negative Exam and history seem consistent with nausea and vomiting and right upper quadrant discomfort. Patient was advised follow-up family care in a few days or here in the ER sooner for abdominal pain, fevers, vomiting, worsening signs or symptoms or as needed. Patient is well-appearing. She is neurovascularly and neurologically intact. She's had an unremarkable workup once again for the same complaint. She's been seen in this facility several times for the same complaint. By the evaluation outlined above emergent etiologies such as appendicitis, diverticulitis, PUD, biliary pathology, UTI, pancreatitis, obstruction, mesenteric ischemia, aortic pathology, infections, inflammatory bowel disease, renal colic, as well as others were deemed relatively unlikely. The pt informed about the findings as listed above. All questions were answered and pleased with the treatment. Return instructions were outlined and the patient was discharged in stable condition. Outpatient prescription management: Reglan Referral: The patient was referred back to their primary care physician for follow-up in 2 to 3 days for a recheck of the current condition. Case reviewed with my attending Medical Decision As above Impression Primary Impression: Right upper quadrant abdominal pain Departure Information Dispostion Home / Self-Care Condition GOOD Referrals Cipriano Peña M.D. (MEDICAL) (PCP) Forms HOME CARE DOCUMENTATION FORM, IMPORTANT VISIT INFORMATION Patient Instructions Vomiting - [facility], My [facility] Additional Instructions DO NOT drive, drink alcohol, operate machinery, or perform dangerous activities today. You were given medications in the ER that can affect your ability to safely function or operate a vehicle. Reglan(metoclopramide) tablets 10mg: Take one every six hours as needed for nausea. Avoid alcohol, operating machinery or dangerous equipment, working on ladders or roofs, DRIVING, or situations where being under the influence may be dangerous. Rest and drink plenty of fluids as tolerated. Slow sips of water or sports drinks are recommended instead of large amounts all at once. Continue current medications. Once your stomach is settled start with a clear liquid diet (jello, soup broth, etc.) and then advance as tolerated. You should avoid full, heavy meals for about 24 hrs from the time your symptoms resolved. Return to the ER for persistent vomiting, fevers, abdominal pain, chest pains, difficulty breathing, black or bloody stools, worsening of your condition, or as needed. Follow up with your primary physician in 2-3 days for a recheck of your current condition.
[2017-09-22] MEDS ORDERED: DTR/5 PO (14:15)
[2017-09-22] MEDS ORDERED: PROM25TA16 PO (14:59)
[2017-09-22] MEDS ORDERED: POTA1TAB PO (15:03)
[2017-09-22] MEDS ORDERED: ASPI1TAB83 PO (15:29)
[2017-09-22] MEDS ORDERED: MULT-506 PO (15:53)
[2017-09-22] MEDS ORDERED: RANI150T2 PO (15:56)
[2017-09-22] MEDS ORDERED: SUCR1TAB PO (15:56)
[2017-09-22] MEDS ORDERED: MRLP527 PO (15:56)
[2017-09-22] MEDS ORDERED: CYM60 PO (15:56)
[2017-09-22] MEDS ORDERED: ADVIN50/60 INH (16:10)
[2017-09-22] MEDS ORDERED: BUSP5TAB59 PO (16:26)
[2017-09-22] MEDS ORDERED: GLC500 PO (16:26)
[2017-09-22] MEDS ORDERED: ESTCR PV (18:18)
[2017-09-22] MEDS ORDERED: SNG10 PO (19:14)
[2017-09-22] MEDS ORDERED: HYDR1CAP85 PO (19:14)
[2017-09-22] MEDS ORDERED: MELA1CAP9 PO (19:14)
== END 2017-04-26 00:34 | disposition home or self-care (01) ==
LOC: C.EDB 21:34 → C.EDA 04-26 00:34
DX: R10.11 Right upper quadrant pain (principal); D72.829 Elevated white blood cell count, unspecified; E11.9 Type 2 diabetes mellitus without complications; F41.8 Other specified anxiety disorders; K58.9 Irritable bowel syndrome, unspecified; K31.84 Gastroparesis; J45.40 Moderate persistent asthma, uncomplicated; Z90.710 Acquired absence of both cervix and uterus; Z98.51 Tubal ligation status; Z87.891 Personal history of nicotine dependence; Z98.890 Other specified postprocedural states; Z79.82 Long term (current) use of aspirin; Z79.84 Long term (current) use of oral hypoglycemic drugs; Z79.899 Other long term (current) drug therapy; Z88.2 Allergy status to sulfonamides; Z88.5 Allergy status to narcotic agent; Z88.8 Allergy status to other drugs, medicaments and biological substances; Z91.040 Latex allergy status; Z80.9 Family history of malignant neoplasm, unspecified; Z82.49 Family history of ischemic heart disease and other diseases of the circulatory system

== ENCOUNTER 2017-05-03 01:20 | Emergency (ER) | payer OTHER ==
[~2017-05-03] VITALS: Ht 154.9 cm; Wt 97.8 kg
[2017-05-03 01:24] VITALS: TEMP 36.6; Ht 154.9 cm; Wt 97.8 kg
[2017-05-03 01:51] VITALS: O2SAT 98
[2017-05-03 01:55] LABS: BASO % 0.3 %; BASO ABS # 0.04 K/uL (0-0.2); COMPLETE YES; EOS % 1.8 %; HEMATOCRIT 36.1 % (37-47); IG% 0.3 %; LYMPH % 32.7 %; LYMPH ABS # 4.64 K/uL (1.2-3.4); MEAN CELL VOLUME 83.2 fL (80-100); MEAN CORPUSCULAR HEMOGLOBIN 28.3 pg (25-34); MEAN CORPUSCULAR HGB CONC 34.1 g/dl (32-36); MEAN PLATELET VOLUME 8.5 fL (7.4-10.4); MONO % 6.8 %; NEUT % 58.1 %; PLATELET COUNT 388 K/uL (130-400); RED BLOOD COUNT 4.34 M/uL (4.2-5.4)
[2017-05-03] MEDS ORDERED: GI COCKTAIL PO ONE (02:00)
[2017-05-03] MEDS ORDERED: LIDOCAINE HCL 2% VISC SOLN 20 ML UDC ONE (02:02)
[2017-05-03] MEDS ORDERED: ALUMINUM/MAGNESIUM SUSP 30 ML UDC ONE (02:02)
[2017-05-03 02:13] LABS: BUN/CREATININE RATIO 12.4 (10-20); CALCIUM 8.3 mg/dl (8.5-10.1); CREATININE 0.71 mg/dl (0.60-1.20); POTASSIUM 3.4 mmol/L (3.5-5.1)
[2017-05-03 02:24] LABS: THYROID STIMULATING HORMONE 2.58 uIu/ml (0.300-4.500)
[2017-05-03 03:13] LABS: URINE APPEARANCE CLEAR (CLEAR); URINE BILIRUBIN NEG (NEG); URINE COLOR YELLOW; URINE EPITHELIAL CELL AUTO 20-30 /lpf (0-5); URINE NITRITE NEG (NEG); URINE SPECIFIC GRAVITY 1.012 (1.000-1.030); UROBILINOGEN NEG (NEG); ZZUR CULT IF INDIC CLEAN CATCH YES
[2017-05-03 03:14] LABS: MANUAL MICROSCOPIC REQUIRED? NO; REVIEW REQ? NO
--- NOTE | 2017-05-03 03:55 | EMERGENCY ROOM VISIT NOTE ---
ED Visit Note First contact with patient: 01:32 Staff note: I have reviewed the Patients chart and have discussed this case with my PA. I generally agree with the ED note and findings.
[2017-05-03 04:13] VITALS: BP 100/58; PULSE 78; O2SAT 95
--- NOTE | 2017-05-03 10:28 | DIAGNOSTIC IMAGING REPORT ---
SINGLE VIEW CHEST CLINICAL HISTORY: Atypical chest pain. FINDINGS: An AP, portable, upright chest radiograph is compared to study dated 04/19/2017 The examination is degraded by portable technique, large body habitus, and apical lordotic positioning. The cardiomediastinal silhouette is normal for projection. There is mild chronic elevation of the right hemidiaphragm as well as bibasilar atelectasis. No airspace consolidation, large pleural effusion, or pneumothorax is seen. The skeletal structures are osteopenic. The bony thorax is grossly intact. IMPRESSION: No acute cardiopulmonary abnormality. Electronically signed by: Alfonso Reid M.D. 05/03/2017 10:27 AM Dictated Date/Time: 05/03/2017 10:27 AM
--- NOTE | 2017-05-04 03:25 | EMERGENCY ROOM VISIT NOTE ---
History First contact with patient: 01:32 Chief Complaint: CHEST PAIN Stated Complaint: MIDDLE CHEST PAIN Nursing Triage Summary: see triage note History of Present Illness The patient is a 56 year old female who presents to the Emergency Room with complaints of central chest pain that woke her from sleep. She describes the pain as a burning sensation, and she initially thought this might be GERD. The patient states that she took 2 tums without relief of symptoms. Her symptoms began about 30 minutes ago and she immediately came to the emergency department. The patient does not have radiation of the pain into her chest. No lightheadedness or dizziness. She has not had recent fever or chills. She is without shortness of breath. The patient is well-known to the emergency department for frequency of visits. She has had similar symptoms like this in the past. She rates her discomfort a 7/10. Review of Systems More than 10 systems were reviewed and otherwise negative with the exception of history of present illness. Past Medical/Surgical History Medical Problems: (1) Abdominal pain (2) Cervicalgia (3) Depression with anxiety (4) DM type 2 (diabetes mellitus, type 2) (5) Gastroparesis (6) GERD (gastroesophageal reflux disease) (7) IBS (irritable bowel syndrome) (8) Moderate persistent asthma (9) Obesity Surgical Problems: (1) H/O dilation and curettage (2) H/O: hysterectomy (3) History of tonsillectomy and adenoidectomy (4) History of tubal ligation Social History Problems: (1) Herpes simplex Family History FH: cancer FATHER Heart disease Social History Smoking Status: Former Smoker Alcohol Use: none Drug Use: none Housing Status: lives with significant other Occupation Status: employed Current/Historical Medications Scheduled Amitriptyline HCl (Amitriptyline HCl), 100 MG PO HS Aspirin (Aspirin), 81 MG PO DAILY Atorvastatin (Lipitor), 80 MG PO HS Buspirone Hcl (Buspirone Hcl), 5 MG PO BID Duloxetine HCl (Duloxetine HCl), 60 MG PO DAILY Esomeprazole Magnesium (Esomeprazole Magnesium), 40 MG PO QAM Estradiol Vaginal (Estrace), 1 APPLN PV 2XWK Ferrous Sulfate (Ferrous Sulfate), 325 MG PO TIDM Fluticasone Prop/Salmeterol (Advair Diskus 500/50 60 Dose), 1 PUFF INH BID Fluticasone Propionate (Fluticasone Propionate), 1 SPRAYS JG BID Hydroxyzine Pamoate (Vistaril), 25 MG PO BID Insulin Glargine (Lantus Solostar), 5 UNITS SC HS Lisinopril (Lisinopril), 2.5 MG PO DAILY Metformin HCl (Metformin HCl), 500 MG PO BIDM Metoclopramide Hcl (Reglan), 10 MG PO ACHS Mirabegron (Myrbetriq Er), 25 MG PO QAM Multivitamin (Multivitamin), 1 TAB PO DAILY Polyethylene (Polyethylene Glycol 3350), 17 GM PO QAM Potassium Gluconate (Potassium Gluconate), 1,190 MG PO DAILY Ranitidine HCl (Ranitidine HCl), 150 MG PO HS Senna/Docusate Sod (Senokot S), 1 TAB PO QAM Sucralfate (Sucralfate), 1 GM PO ACHS Scheduled PRN Yboioma-Zyatvvppcqysl-Awfqkicz (Excedrin Migraine), 1 DOSE PO DIRECTED PRN for Migraine Dicyclomine Hcl (Dicyclomine Hcl), 10 MG PO QID PRN for Pain Ipratropium-Albuterol (Duoneb), 1 TREATMENT INH QID PRN for SOB/Wheezing Meclizine HCl (Meclizine HCl), 1 TAB PO TID PRN for Dizziness or Vertigo Melatonin (Kp Melatonin), 1-2 TABS PO HS PRN for Insomnia Promethazine HCl (Promethazine HCl), 25 MG PO Q6H PRN for Nausea Valacyclovir HCl (Valacyclovir HCl), 500 MG PO TID PRN for Outbreaks Allergies Coded Allergies: Hydromorphone (Verified Allergy, Severe, itching, 05/03/17) Ondansetron (Verified Allergy, Intermediate, hives; RASH, 05/03/17) Sulfa Antibiotics (Verified Allergy, Intermediate, rash, 05/03/17) Aminoglycosides (Verified Allergy, Unknown, >, 05/03/17) Bacitracin (Verified Allergy, Unknown, >, 05/03/17) Ceftriaxone (Verified Allergy, Unknown, Rash, hives and itchiness., 05/03/17 ) Cephalexin (Verified Allergy, Unknown, hives, 05/03/17) Latex1 -Allergic Contact Dermititis (Verified Allergy, Unknown, 05/03/17) Neomycin (Verified Allergy, Unknown, >, 05/03/17) Polymyxin B (Verified Allergy, Unknown, >, 05/03/17) Sulfamethoxazole w/Trimethoprim (Verified Allergy, Unknown, Unknown, ) Physical Exam Vital Signs Date Time Temp Pulse Resp B/P (MAP) Pulse Ox O2 Delivery O2 Flow Rate FiO2 05/03/17 04:13 78 18 100/58 95 Room Air 05/03/17 03:30 80 26 102/65 94 Room Air 05/03/17 02:35 88 22 120/68 94 Room Air 05/03/17 02:20 89 28 92 Room Air 05/03/17 02:05 89 23 113/68 95 Room Air 05/03/17 01:51 98 Room Air 05/03/17 01:50 96 20 05/03/17 01:39 86 05/03/17 01:24 36.6 91 18 128/83 98 Room Air Pain Rating (0-10): 3.0 Physical Exam VITALS: Vitals are noted on the nurse's note and reviewed by myself. Vital signs stable. GENERAL: Well-developed, well-nourished, white female, who is in no acute distress and resting comfortably. Patient is cooperative with the examination. HEAD: Normocephalic atraumatic. HEART: Regular rate and rhythm without murmurs gallops or rubs. LUNGS: Clear to auscultation bilaterally without wheezes, rales or rhonchi. No retractions or accessory muscle use. ABDOMEN: Positive normal bowel sounds x 4. Soft with epigastric abdominal pain on palpation. No rebound or guarding throughout the abdomen. MUSCULOSKELETAL: No muscle atrophy, erythema, or edema noted. Full range of motion without joint tenderness in all extremities. Medical Decision & Procedures ER Provider Diagnostic Interpretation: SINGLE VIEW CHEST CLINICAL HISTORY: Atypical chest pain. FINDINGS: An AP, portable, upright chest radiograph is compared to study dated 04/19/2017 The examination is degraded by portable technique, large body habitus, and apical lordotic positioning. The cardiomediastinal silhouette is normal for projection. There is mild chronic elevation of the right hemidiaphragm as well as bibasilar atelectasis. No airspace consolidation, large pleural effusion, or pneumothorax is seen. The skeletal structures are osteopenic. The bony thorax is grossly intact. IMPRESSION: No acute cardiopulmonary abnormality. Laboratory Results 05/03/17 01:47 Red Blood Count 4.34, Mean Corpuscular Volume 83.2, Mean Corpuscular Hemoglobin 28.3, Mean Corpuscular Hemoglobin Concent 34.1, Mean Platelet Volume 8.5, Neutrophils (%) (Auto) 58.1, Lymphocytes (%) (Auto) 32.7, Monocytes (%) (Auto) 6.8, Eosinophils (%) (Auto) 1.8, Basophils (%) (Auto) 0.3, Neutrophils # (Auto) 8.26, Lymphocytes # (Auto) 4.64, Monocytes # (Auto) 0.96, Eosinophils # (Auto) 0.26, Basophils # (Auto) 0.04 05/03/17 01:47 Test 05/03/17 01:47 05/03/17 02:40 05/03/17 03:21 White Blood Count 14.20 K/uL (4.8-10.8) Red Blood Count 4.34 M/uL (4.2-5.4) Hemoglobin 12.3 g/dL (12.0-16.0) Hematocrit 36.1 % (37-47) Mean Corpuscular Volume 83.2 fL (80-100) Mean Corpuscular Hemoglobin 28.3 pg (25-34) Mean Corpuscular Hemoglobin Concent 34.1 g/dl (32-36) Platelet Count 388 K/uL (130-400) Mean Platelet Volume 8.5 fL (7.4-10.4) Neutrophils (%) (Auto) 58.1 % Lymphocytes (%) (Auto) 32.7 % Monocytes (%) (Auto) 6.8 % Eosinophils (%) (Auto) 1.8 % Basophils (%) (Auto) 0.3 % Neutrophils # (Auto) 8.26 K/uL (1.4-6.5) Lymphocytes # (Auto) 4.64 K/uL (1.2-3.4) Monocytes # (Auto) 0.96 K/uL (0.11-0.59) Eosinophils # (Auto) 0.26 K/uL (0-0.5) Basophils # (Auto) 0.04 K/uL (0-0.2) RDW Standard Deviation 44.5 fL (36.4-46.3) RDW Coefficient of Variation 14.5 % (11.5-14.5) Immature Granulocyte % (Auto) 0.3 % Immature Granulocyte # (Auto) 0.04 K/uL (0.00-0.02) Anion Gap 9.0 mmol/L (3-11) Est Creatinine Clear Calc Drug Dose 92.4 ml/min Estimated GFR () 108.8 Estimated GFR (Non- 93.9 BUN/Creatinine Ratio 12.4 (10-20) Calcium Level 8.3 mg/dl (8.5-10.1) Total Bilirubin 0.2 mg/dl (0.2-1) Aspartate Amino Transf (AST/SGOT) 18 U/L (15-37) Alanine Aminotransferase (ALT/SGPT) 40 U/L (12-78) Alkaline Phosphatase 173 U/L (45-117) Total Protein 6.1 gm/dl (6.4-8.2) Albumin 3.0 gm/dl (3.4-5.0) Globulin 3.1 gm/dl (2.5-4.0) Albumin/Globulin Ratio 1.0 (0.9-2) Lipase 176 U/L (73-393) Thyroid Stimulating Hormone (TSH) 2.580 uIu/ml (0.300-4.500) Urine Color YELLOW Urine Appearance CLEAR (CLEAR) Urine pH 5.0 (4.5-7.5) Urine Specific [place] 1.012 (1.000-1.030) Urine Protein NEG (NEG) Urine Glucose (UA) NEG (NEG) Urine Ketones NEG (NEG) Urine Occult Blood NEG (NEG) Urine Nitrite NEG (NEG) Urine Bilirubin NEG (NEG) Urine Urobilinogen NEG (NEG) Urine Leukocyte Esterase MODERATE (NEG) Urine WBC (Auto) 10-30 /hpf (0-5) Urine RBC (Auto) 0-4 /hpf (0-4) Urine Hyaline Casts (Auto) 0 /lpf (0-5) Urine Epithelial Cells (Auto) 20-30 /lpf (0-5) Urine Bacteria (Auto) NEG (NEG) Bedside Troponin I < 0.030 ng/ml (0-0.045) Medications Administered Medications (Trade) Dose Ordered Sig/Antony Route Start Time Stop Time Status Last Admin Dose Admin Miscellaneous Medication (Gi Cocktail) 24 ml NOW ONCE PO 05/03/17 02:00 05/03/17 02:01 DC 05/03/17 02:05 24 ML ECG Change: Poor data quality, interpretation may be adversely affected Normal sinus rhythm @84 bpm Diffuse Minor Nonspecific ST abnormality Abnormal ECG When compared with ECG of 19-APR-2017 19:10, No significant change was found Confirmed by DOUGLAS REED ([id number]) on 05/03/2017 9:40:19 AM ED Course Physical exam and history were performed. Nursing notes and EMR were reviewed. Patient appears to have epigastric abdominal pain that woke her from sleep. The patient does not appear toxic on examination. IV access was established and labs were obtained. EKG was performed and is unchanged from 2 weeks ago as described above. The patient was given a GI cocktail and chest x-ray was performed. The patient does have an elevated white blood cell count of 14,000, however this appears chronic for her and is within her normal lab values. She does not have a gross anemia or significant electrolyte imbalance. Lipase and transaminases are nondiagnostic. Troponin 1 is negative. Chest x-ray is without acute findings. Overall the patient appears well for discharge home. She did have some improvement of her pain with the GI cocktail. She has had epigastric abdominal pain/GERD symptoms in the past. She does report this does feel similar to those episodes. The patient is to follow with her PCP and GI. She was otherwise invited back to the ER with any new, worsening, or concerning symptoms. The chart was completed utilizing [employer] Speech Voice Recognition Software. Grammatical errors, random word insertions, pronoun errors, and incomplete sentences are an occasional consequence of this system due to software limitations, ambient noise, and hardware issues. Any formal questions or concerns about the content, text, or information contained within the body of this dictation should be directly addressed to the provider for clarification. . Medical Decision Differential diagnosis: Etiologies such as appendicitis, diverticulitis, PUD, biliary pathology, UTI, pancreatitis, obstruction, mesenteric ischemia, aortic pathology, infections, inflammatory bowel disease, renal colic, as well as others were entertained. Impression Primary Impression: Epigastric abdominal pain Departure Information Dispostion Home / Self-Care Condition GOOD Forms HOME CARE DOCUMENTATION FORM, IMPORTANT VISIT INFORMATION Patient Instructions [facility] Additional Instructions You were seen and evaluated today on an emergency basis only. This is not a substitute for, or an effort to provide, complete comprehensive medical care. It is not possible to recognize and treat all injuries or illnesses in a single emergency department visit. For this reason it is recommended that you followup with your primary care physician this week for ongoing care and evaluation. You are welcome to return to the emergency department anytime with new, worsening, or concerning symptoms.
[2017-08-11] MEDS ORDERED: OXYB5TAB74 PO (14:15)
[2017-08-11] MEDS ORDERED: PROM25TA16 PO (14:59)
[2017-08-11] MEDS ORDERED: POTA1TAB PO (15:03)
[2017-08-11] MEDS ORDERED: ASPI1TAB83 PO (15:29)
[2017-08-11] MEDS ORDERED: MULT-506 PO (15:53)
[2017-08-11] MEDS ORDERED: SUCR1TAB PO (15:56)
[2017-08-11] MEDS ORDERED: CYM60 PO (15:56)
[2017-08-11] MEDS ORDERED: RANI150T2 PO (15:56)
[2017-08-11] MEDS ORDERED: MRLP527 PO (15:56)
[2017-08-11] MEDS ORDERED: ADVIN50/60 INH (16:10)
[2017-08-11] MEDS ORDERED: GLC500 PO (16:26)
[2017-08-11] MEDS ORDERED: BUSP5TAB59 PO (16:26)
[2017-08-11] MEDS ORDERED: ESTCR PV (18:18)
== END 2017-05-03 04:22 | disposition home or self-care (01) ==
LOC: C.EDB 01:21
DX: R10.13 Epigastric pain (principal); R07.9 Chest pain, unspecified; R94.31 Abnormal electrocardiogram [ECG] [EKG]; F41.8 Other specified anxiety disorders; E11.9 Type 2 diabetes mellitus without complications; K21.9 Gastro-esophageal reflux disease without esophagitis; K58.9 Irritable bowel syndrome, unspecified; J45.40 Moderate persistent asthma, uncomplicated; Z79.4 Long term (current) use of insulin; Z79.82 Long term (current) use of aspirin; Z79.899 Other long term (current) drug therapy; Z87.19 Personal history of other diseases of the digestive system; Z82.49 Family history of ischemic heart disease and other diseases of the circulatory system

== ENCOUNTER 2017-05-23 19:48 | Emergency (ER) | payer OTHER ==
[~2017-05-23] VITALS: Ht 154.9 cm; Wt 98.4 kg
[2017-05-23 19:58] VITALS: TEMP 36.7; Ht 154.9 cm; Wt 98.4 kg
[2017-05-23] MEDS ORDERED: METOCLOPRAMIDE HCL INJ 5 MG/ML 2 ML VIAL IV STA (20:55)
[2017-05-23] MEDS ORDERED: DiphenhydrAMINE HCL 50 MG/ML VIAL IV STA ×2 (20:55→22:48)
[2017-05-23] MEDS ORDERED: SODIUM CHLORIDE 0.9% 1000ML 1,000 ML IV STA ×2 (20:55→22:47)
[2017-05-23 21:12] LABS: BASO % 0.1 %; BASO ABS # 0.02 K/uL (0-0.2); COMPLETE YES; EOS % 1.1 %; HEMATOCRIT 39.2 % (37-47); IG% 0.3 %; LYMPH % 28.3 %; LYMPH ABS # 4.97 K/uL (1.2-3.4); MEAN CORPUSCULAR HEMOGLOBIN 28.9 pg (25-34); MEAN CORPUSCULAR HGB CONC 33.9 g/dl (32-36); MONO % 6.9 %; NEUT % 63.3 %; PLATELET COUNT 391 K/uL (130-400); RED BLOOD COUNT 4.61 M/uL (4.2-5.4); WHITE BLOOD COUNT 17.59 K/uL (4.8-10.8)
[2017-05-23 21:33] LABS: BUN/CREATININE RATIO 16.2 (10-20); CALCIUM 8.8 mg/dl (8.5-10.1); CREATININE 0.86 mg/dl (0.60-1.20); POTASSIUM 3.8 mmol/L (3.5-5.1)
--- NOTE | 2017-05-23 22:37 | DIAGNOSTIC IMAGING REPORT ---
PA CHEST WITH ABDOMINAL SERIES CLINICAL HISTORY: Nausea and vomiting. Diarrhea. FINDINGS: A PA chest radiograph is compared to study dated 05/03/2017. The examination is degraded by large body habitus. The cardiomediastinal silhouette is unremarkable. There are low lung volumes with mild chronic elevation of the right hemidiaphragm and right basilar atelectasis. The lungs and pleural spaces are otherwise clear. No pneumothorax is seen. The skeletal structures are osteopenic. The bony thorax is grossly intact. Supine and erect abdominal radiographs are correlated with abdominal CT dated 03/13/2017. There is a nonobstructed abdominal bowel gas pattern. Mild to moderate colonic fecal retention is observed. No intraperitoneal free air is seen. There is no radiographic evidence of nephrolithiasis. Numerous calcified phleboliths are present in the pelvis. The lumbosacral spine and bony pelvis appear intact. IMPRESSION: 1. Low lung volumes with no active disease in the chest. 2. Nonobstructed abdominal bowel gas pattern noting mild to moderate colonic fecal retention. Electronically signed by: Alfonso Reid M.D. 05/23/2017 10:35 PM Dictated Date/Time: 05/23/2017 10:34 PM
[2017-05-23] MEDS ORDERED: PROMETHAZINE HCL INJ 25 MG in SODIUM CHLORIDE 0.9% 50ML 50 ML IV STA (22:48)
[2017-05-24] MEDS ORDERED: OPTIRAY 320 IV PRN (00:30)
--- NOTE | 2017-05-24 01:44 | EMERGENCY ROOM VISIT NOTE ---
History Report prepared by Tamera: Duglas Andino Under the Supervision of: Dr. Deana Wilkinson, DJuanjoseO. First contact with patient: 20:36 Chief Complaint: VOMITING Stated Complaint: VOMITING DIARRHEA Nursing Triage Summary: WEnt out to eat tonight and now has n/v/d and abd pain History of Present Illness The patient is a 57 year old female who presents to the Emergency Room with complaints of persistent vomiting beginning shortly prior to arrival. She also complains of diarrhea and abdominal pain. She states that her symptoms began 1 hour after eating dinner. The patient states that she ate prime rib salad tonight. No one else has gotten sick who went to dinner with her. She denies any fevers, or chills. She denies seeing any blood in her vomit or stool. The patient estimates that she had 5 episodes of vomiting and 4 episodes of diarrhea so far. The patient has a history of diverticulitis and gastroparesis. She states that she felt totally fine prior to eating. Source of History: patient Onset: Shortly prior to arrival Quality: other (vomiting) Timing: other (persistent) Associated Symptoms: + abdominal pain, + diarrhea, No fevers, No chills Review of Systems See HPI for pertinent positives & negatives. A total of 10 systems reviewed and were otherwise negative. Past Medical & Surgical Medical Problems: (1) Abdominal pain (2) Cervicalgia (3) Depression with anxiety (4) DM type 2 (diabetes mellitus, type 2) (5) Gastroparesis (6) GERD (gastroesophageal reflux disease) (7) IBS (irritable bowel syndrome) (8) Moderate persistent asthma (9) Obesity Surgical Problems: (1) H/O dilation and curettage (2) H/O: hysterectomy (3) History of tonsillectomy and adenoidectomy (4) History of tubal ligation Social History Problems: (1) Herpes simplex Family History FH: cancer FATHER Heart disease Social History Smoking Status: Former Smoker Alcohol Use: none Drug Use: none Housing Status: lives with significant other Occupation Status: employed Current/Historical Medications Scheduled Amitriptyline HCl (Amitriptyline HCl), 100 MG PO HS Aspirin (Aspirin), 81 MG PO DAILY Atorvastatin (Lipitor), 80 MG PO HS Buspirone Hcl (Buspirone Hcl), 5 MG PO BID Duloxetine HCl (Duloxetine HCl), 60 MG PO DAILY Esomeprazole Magnesium (Esomeprazole Magnesium), 40 MG PO QAM Estradiol Vaginal (Estrace), 1 APPLN PV 2XWK Ferrous Sulfate (Ferrous Sulfate), 325 MG PO TIDM Fluticasone Prop/Salmeterol (Advair Diskus 500/50 60 Dose), 1 PUFF INH BID Fluticasone Propionate (Fluticasone Propionate), 1 SPRAYS JG BID Hydroxyzine Pamoate (Vistaril), 25 MG PO BID Insulin Glargine (Lantus Solostar), 5 UNITS SC HS Lisinopril (Lisinopril), 2.5 MG PO DAILY Metformin HCl (Metformin HCl), 500 MG PO BIDM Metoclopramide Hcl (Reglan), 10 MG PO ACHS Mirabegron (Myrbetriq Er), 25 MG PO QAM Multivitamin (Multivitamin), 1 TAB PO DAILY Polyethylene (Polyethylene Glycol 3350), 17 GM PO QAM Potassium Gluconate (Potassium Gluconate), 1,190 MG PO DAILY Ranitidine HCl (Ranitidine HCl), 150 MG PO HS Senna/Docusate Sod (Senokot S), 1 TAB PO QAM Sucralfate (Sucralfate), 1 GM PO ACHS Scheduled PRN Cjznvap-Zbhubavdthwrx-Tortbhxq (Excedrin Migraine), 1 DOSE PO DIRECTED PRN for Migraine Dicyclomine Hcl (Dicyclomine Hcl), 10 MG PO QID PRN for Pain Ipratropium-Albuterol (Duoneb), 1 TREATMENT INH QID PRN for SOB/Wheezing Meclizine HCl (Meclizine HCl), 1 TAB PO TID PRN for Dizziness or Vertigo Melatonin (Kp Melatonin), 1-2 TABS PO HS PRN for Insomnia Promethazine HCl (Promethazine HCl), 25 MG PO Q6H PRN for Nausea Valacyclovir HCl (Valacyclovir HCl), 500 MG PO TID PRN for Outbreaks Allergies Coded Allergies: Hydromorphone (Verified Allergy, Severe, itching, 05/03/17) Ondansetron (Verified Allergy, Intermediate, hives; RASH, 05/03/17) Sulfa Antibiotics (Verified Allergy, Intermediate, rash, 05/03/17) Aminoglycosides (Verified Allergy, Unknown, >, 05/03/17) Bacitracin (Verified Allergy, Unknown, >, 05/03/17) Ceftriaxone (Verified Allergy, Unknown, Rash, hives and itchiness., 05/03/17 ) Cephalexin (Verified Allergy, Unknown, hives, 05/03/17) Latex1 -Allergic Contact Dermititis (Verified Allergy, Unknown, 05/03/17) Neomycin (Verified Allergy, Unknown, >, 05/03/17) Polymyxin B (Verified Allergy, Unknown, >, 05/03/17) Sulfamethoxazole w/Trimethoprim (Verified Allergy, Unknown, Unknown, ) Physical Exam Vital Signs Date Time Temp Pulse Resp B/P (MAP) Pulse Ox O2 Delivery O2 Flow Rate FiO2 05/24/17 03:08 72 18 143/80 96 05/24/17 02:55 72 18 143/80 96 Room Air 05/24/17 01:19 74 18 127/79 99 Room Air 05/23/17 23:40 83 18 116/72 95 Room Air 05/23/17 21:39 84 18 119/82 95 Room Air 05/23/17 19:58 36.7 96 18 142/91 94 Room Air Physical Exam GENERAL: alert, well appearing, well nourished, no distress, non-toxic EYE EXAM: normal conjunctiva. OROPHARYNX: no exudate, no erythema, lips, buccal mucosa, and tongue normal and mucous membranes are mildly dry. Poor dentition. NECK: supple, no nuchal rigidity, no adenopathy, non-tender LUNGS: Clear to auscultation. Normal chest wall mechanics HEART: no murmurs, S1 normal and S2 normal ABDOMEN: abdomen soft, normo-active bowel sounds, no masses, no rebound or guarding. Mild central abdominal discomfort to palpation. BACK: Back is symmetrical on inspection and there is no deformity, no midline tenderness, no CVA tenderness. SKIN: no rashes and no bruising. Multiple areas of scarring consistent with previous excoriations. UPPER EXTREMITIES: upper extremities are grossly normal. LOWER EXTREMITIES: No pitting edema. NEURO EXAM: Normal sensorium, cranial nerves II-XII grossly intact, normal speech, no gross weakness of arms, no gross weakness of legs. Medical Decision & Procedures ER Provider Diagnostic Interpretation: Radiology results have been interpreted by the radiologist and reviewed by me. PA CHEST WITH ABDOMINAL SERIES FINDINGS: A PA chest radiograph is compared to study dated 05/03/2017. The examination is degraded by large body habitus. The cardiomediastinal silhouette is unremarkable. There are low lung volumes with mild chronic elevation of the right hemidiaphragm and right basilar atelectasis. The lungs and pleural spaces are otherwise clear. No pneumothorax is seen. The skeletal structures are osteopenic. The bony thorax is grossly intact. Supine and erect abdominal radiographs are correlated with abdominal CT dated 03/13/2017. There is a nonobstructed abdominal bowel gas pattern. Mild to moderate colonic fecal retention is observed. No intraperitoneal free air is seen. There is no radiographic evidence of nephrolithiasis. Numerous calcified phleboliths are present in the pelvis. The lumbosacral spine and bony pelvis appear intact. IMPRESSION: 1. Low lung volumes with no active disease in the chest. 2. Nonobstructed abdominal bowel gas pattern noting mild to moderate colonic fecal retention. Electronically signed by: Alfonso Reid M.D. CT abdomen and pelvis: Comparison: 03/13/2017 Normal appearance of the pancreas. No CT findings of acute pancreatitis. Normal appendix visualized. Unremarkable small and large bowel. No acute inflammatory process or obstruction. Redemonstration of left upper pole renal cyst. Status post remote hysterectomy. Reading radiologist jasmin Bahena M.D. Laboratory Results 05/23/17 21:00 Red Blood Count 4.61, Mean Corpuscular Volume 85.0, Mean Corpuscular Hemoglobin 28.9, Mean Corpuscular Hemoglobin Concent 33.9, Mean Platelet Volume 9.0, Neutrophils (%) (Auto) 63.3, Lymphocytes (%) (Auto) 28.3, Monocytes (%) (Auto) 6.9, Eosinophils (%) (Auto) 1.1, Basophils (%) (Auto) 0.1, Neutrophils # (Auto) 11.14, Lymphocytes # (Auto) 4.97, Monocytes # (Auto) 1.21, Eosinophils # (Auto) 0.19, Basophils # (Auto) 0.02 05/23/17 21:00 Test 05/23/17 21:00 05/23/17 21:10 White Blood Count 17.59 K/uL (4.8-10.8) Red Blood Count 4.61 M/uL (4.2-5.4) Hemoglobin 13.3 g/dL (12.0-16.0) Hematocrit 39.2 % (37-47) Mean Corpuscular Volume 85.0 fL (80-100) Mean Corpuscular Hemoglobin 28.9 pg (25-34) Mean Corpuscular Hemoglobin Concent 33.9 g/dl (32-36) Platelet Count 391 K/uL (130-400) Mean Platelet Volume 9.0 fL (7.4-10.4) Neutrophils (%) (Auto) 63.3 % Lymphocytes (%) (Auto) 28.3 % Monocytes (%) (Auto) 6.9 % Eosinophils (%) (Auto) 1.1 % Basophils (%) (Auto) 0.1 % Neutrophils # (Auto) 11.14 K/uL (1.4-6.5) Lymphocytes # (Auto) 4.97 K/uL (1.2-3.4) Monocytes # (Auto) 1.21 K/uL (0.11-0.59) Eosinophils # (Auto) 0.19 K/uL (0-0.5) Basophils # (Auto) 0.02 K/uL (0-0.2) RDW Standard Deviation 46.5 fL (36.4-46.3) RDW Coefficient of Variation 14.8 % (11.5-14.5) Immature Granulocyte % (Auto) 0.3 % Immature Granulocyte # (Auto) 0.06 K/uL (0.00-0.02) Anion Gap 10.0 mmol/L (3-11) Est Creatinine Clear Calc Drug Dose 75.6 ml/min Estimated GFR () 85.7 Estimated GFR (Non- 73.9 BUN/Creatinine Ratio 16.2 (10-20) Calcium Level 8.8 mg/dl (8.5-10.1) Total Bilirubin 0.3 mg/dl (0.2-1) Aspartate Amino Transf (AST/SGOT) 19 U/L (15-37) Alanine Aminotransferase (ALT/SGPT) 44 U/L (12-78) Alkaline Phosphatase 153 U/L (45-117) Total Protein 6.9 gm/dl (6.4-8.2) Albumin 3.5 gm/dl (3.4-5.0) Globulin 3.4 gm/dl (2.5-4.0) Albumin/Globulin Ratio 1.0 (0.9-2) Lipase 437 U/L (73-393) Bedside Lactic Acid Venous 1.75 mmol/L (0.90-1.70) Laboratory results per my review. Medications Administered Medications (Trade) Dose Ordered Sig/Antony Route Start Time Stop Time Status Last Admin Dose Admin Sodium Chloride 1,000 ml @ 999 mls/hr Q1H1M STAT IV 05/23/17 20:55 05/23/17 21:55 DC 05/23/17 21:35 999 MLS/HR Metoclopramide HCl (Reglan Inj) 10 mg NOW STAT IV 05/23/17 20:55 05/23/17 20:59 DC 05/23/17 21:36 10 MG Diphenhydramine HCl (Benadryl Inj) 25 mg NOW STAT IV 05/23/17 20:55 05/23/17 20:59 DC 05/23/17 21:36 25 MG Sodium Chloride 1,000 ml @ 999 mls/hr Q1H1M STAT IV 05/23/17 22:47 05/23/17 23:47 DC 05/23/17 23:44 999 MLS/HR Promethazine HCl 25 mg/Sodium Chloride 51 ml @ 204 mls/hr NOW STAT IV 05/23/17 22:48 05/23/17 23:02 DC 05/24/17 00:04 204 MLS/HR Diphenhydramine HCl (Benadryl Inj) 25 mg NOW STAT IV 05/23/17 22:48 05/23/17 22:50 DC 05/23/17 23:41 25 MG ECG Indication: vomiting Rate (beats per minute): 90 Rhythm: normal sinus Findings: no acute ischemic change, other (Normal axis. Normal intervals. Baseline artifact. ) ED Course 2045: The patient was evaluated in room C7. A complete history and physical exam was performed. 2054: Ordered Benadryl Inj 25 mg IV, Reglan Inj 10 mg IV, Sodium Chloride 1000 ml @ 999 mls/hr IV. 2244: I reassessed the patient. She still feels queasy, but feels better and has not vomited or had any diarrhea. 2346: Ordered Sodium Chloride 1000 ml @ 999 mls/hr IV, Benadryl Inj 25 mg IV, Promethazine HCl 25 mg/Sodium Chloride 51 ml @ 204 mls/hr IV. 0217: Patient states tolerated by mouth without any recurrent pain or nausea or vomiting. Discussed with patient all results. Discussed clear liquid diet over the next 24 hours, frequent checks of sugars, use of her anti-medic at home , symptoms to watch and return for, she verbalized understanding was agreeable with plan. Medical Decision Differential diagnosis: Etiologies such as gastroenteritis, food borne illness, infections, appendicitis , diverticulitis, inflammatory bowel disease, obstruction, GI bleed, biliary pathology, as well as others were entertained. Pt presentation more consistent with food borne illness, however pt with risk factors for other pathology. Prior hx of pancreatitis, however pt denies sx tonight feel like that episode. Discussed mild elevation of pancreas and no CT findings of pancreatitis. Pt was markedly improved here, would like to home and states she will return if her symptoms return or she feels worse. Leukocytosis likely due to vomiting. Low suspicion for bacteremia/sepsis. No evidence of ischemia colitis, sbo, perf, Gu pathology, gi bleed. No recurrent sx while in the ER. VS stable. No Gu symptoms. No evidence of DKA. Pt well known to the ER, here frequently with various complaints. Discussed with pt f/ u with PCP, sx to watch/return for, she verbalized understanding and was agreeable with plan. discussed hydration, clear/light diet and f/u with PCP regarding recheck of the lipase. Doubt related to Etoh or biliary pathology. Pt's alk phos chronically elevated. Lipase intermittently borderline elevated on review or EMR. Doubt cholangitis, choledocholithiasis, cholecystitis. Medication Reconcilliation Current Medication List: was personally reviewed by me Blood Pressure Screening Patient's blood pressure: Elevated blood pressure Blood pressure disposition: Elevated BP felt to be situational Impression Primary Impression: Nausea, vomiting and diarrhea Additional Impressions: Obesity Pancreatitis Scribe Attestation The scribe's documentation has been prepared under my direction and personally reviewed by me in its entirety. I confirm that the note above accurately reflects all work, treatment, procedures, and medical decision making performed by me. Departure Information Dispostion Home / Self-Care Referrals Cipriano Peña M.D. (MEDICAL) (PCP) Patient Instructions My [facility] Additional Instructions Please follow up with your family doctor. Please drink plenty of clear liquids and eat a very light and bland diet. If you have any recurrent vomiting or diarrhea, develop recurrent or worsening abdominal pain, have very high or very low blood sugars, develop fevers or chills, or you have any other new concerns, please return the emergency room. Please check her sugars frequently to monitor for any changes. You may use the nausea medication you have at home as instructed. Problem Qualifiers Additional Impressions: Obesity Obesity type: unspecified obesity type Obesity classification: unspecified obesity classification Serious obesity comorbidity presence: unspecified whether serious comorbidity present Qualified Codes: E66.9 - Obesity, unspecified Pancreatitis Chronicity: acute Pancreatitis type: unspecified pancreatitis type Acute pancreatitis complication: no infection or necrosis Qualified Codes: K85.90 - Acute pancreatitis without necrosis or infection, unspecified
[2017-05-24 03:08] VITALS: BP 143/80; PULSE 72; O2SAT 96
--- NOTE | 2017-05-24 06:57 | DIAGNOSTIC IMAGING REPORT ---
ABD/PELVIS IV CONTRAST ONLY CT DOSE: 1098.07 mGy.cm HISTORY: Pain abd pain, n/v, elevated lipase TECHNIQUE: Multiaxial CT images of the abdomen and pelvis were performed following the use of intravenous contrast. A dose lowering technique was utilized adhering to the principles of ALARA. COMPARISON STUDY: 03/13/2017 FINDINGS: Lung bases are clear. Mild fatty replacement of the liver. Gallbladder is negative for distention. Stable 2.1 cm left renal cyst. The pancreas is uniform. Bowel pattern overall is nonobstructive. Several scattered colonic diverticuli with no evidence for acute diverticulitis. Bladder is midline. Prior hysterectomy. IMPRESSION: Small stable left renal cyst. Otherwise negative study of the abdomen and pelvis. The above report was generated using voice recognition software. It may contain grammatical, syntax or spelling errors. Electronically signed by: Jose Collins M.D. 05/24/2017 6:56 AM Dictated Date/Time: 05/24/2017 6:53 AM
[2017-08-11] MEDS ORDERED: OXYB5TAB74 PO (14:15)
[2017-08-11] MEDS ORDERED: PROM25TA16 PO (14:59)
[2017-08-11] MEDS ORDERED: POTA1TAB PO (15:03)
[2017-08-11] MEDS ORDERED: ASPI1TAB83 PO (15:29)
[2017-08-11] MEDS ORDERED: MULT-506 PO (15:53)
[2017-08-11] MEDS ORDERED: CYM60 PO (15:56)
[2017-08-11] MEDS ORDERED: SUCR1TAB PO (15:56)
[2017-08-11] MEDS ORDERED: RANI150T2 PO (15:56)
[2017-08-11] MEDS ORDERED: MRLP527 PO (15:56)
[2017-08-11] MEDS ORDERED: ADVIN50/60 INH (16:10)
[2017-08-11] MEDS ORDERED: GLC500 PO (16:26)
[2017-08-11] MEDS ORDERED: BUSP5TAB59 PO (16:26)
[2017-08-11] MEDS ORDERED: ESTCR PV (18:18)
== END 2017-05-24 03:09 | disposition home or self-care (01) ==
LOC: C.EDB 19:49 → C.EDC 05-24 03:09
DX: R11.2 Nausea with vomiting, unspecified (principal); R19.7 Diarrhea, unspecified; K85.90 Acute pancreatitis without necrosis or infection, unspecified; Z68.41 Body mass index [BMI] 40.0-44.9, adult; E66.9 Obesity, unspecified; F41.8 Other specified anxiety disorders; E11.43 Type 2 diabetes mellitus with diabetic autonomic (poly)neuropathy; K21.9 Gastro-esophageal reflux disease without esophagitis; K58.9 Irritable bowel syndrome, unspecified; J45.40 Moderate persistent asthma, uncomplicated; Z90.710 Acquired absence of both cervix and uterus; Z98.51 Tubal ligation status; Z80.9 Family history of malignant neoplasm, unspecified; Z87.891 Personal history of nicotine dependence; Z79.82 Long term (current) use of aspirin; Z79.899 Other long term (current) drug therapy

== ENCOUNTER 2017-06-06 13:42 | Emergency (ER) | payer OTHER ==
[~2017-06-06] VITALS: Ht 154.9 cm; Wt 99.0 kg
[2017-06-06 13:46] VITALS: TEMP 36.7; Ht 154.9 cm; Wt 99.0 kg
--- NOTE | 2017-06-06 14:10 | EMERGENCY ROOM VISIT NOTE ---
ED Visit Note First contact with patient: 13:52 CHIEF COMPLAINT: Left ankle injury this morning HISTORY OF PRESENT ILLNESS: Patient is a 57-year-old white female who presents to the emergency department for evaluation of left ankle pain. She rolled the ankle while walking her dog around 4:00 this morning. She describes an inversion injury. She notes pain in the lateral aspect of her ankle. She is able to bear weight but it is painful. She took ibuprofen and applied ice. She does have a history of injuries to this ankle. She does note that she fell and landed on her flexed knee and has a small abrasion there, but states the pain there is less than in the ankle. She rates her discomfort a 9/10. REVIEW OF SYSTEMS: Review of systems as per HPI. All other systems reviewed were negative. At least 6 systems reviewed. PMH: Electronic medical records are reviewed and summarized as above/below. See Problem List. SOCIAL HISTORY: Patient lives at home. PHYSICAL EXAM: Vital Signs: Reviewed Nurse's notes. MENTAL STATUS: Alert, oriented, and cooperative. The left ankle is slightly swollen and tender over the lateral aspect but the skin is intact and there is no ligamentous instability. No pain over the 5th metatarsal or fibular head. Lisfranc joint is negative. There is no deformity. The foot and toes are warm and well- perfused. Sensation to pain and light touch is intact. EMERGENCY DEPARTMENT COURSE: X-ray reveals no fracture, only the soft tissue swelling. A compression sleeve and gel splint were applied to the ankle under my direction and the position was satisfactory. The patient has crutches at home. Conservative care measures were discussed. Differential diagnosis include foot verses ankle sprain/fracture, contusion, dislocation. Medication reconciliation: I attest that I have personally reviewed the patient' s current medication list. Blood pressure screening : Patient was found to have normal blood pressure on screening and does not require follow-up. LEFT ANKLE MIN 3 VIEWS ROUTINE HISTORY: 57 years-old Female LEFT, TWISTING INJURY COMPARISON: None available TECHNIQUE: 3 views of the left ankle FINDINGS: Talar dome is smooth without osteochondral defect. There is no acute fracture, dislocation or significant degenerative changes. Mild dorsal spurring is noted within the talonavicular joint. There is mild circumferential soft tissue swelling about the ankle without large joint effusion. IMPRESSION: Mild circumferential soft tissue swelling about the ankle without acute fracture or dislocation. Problem List Medical Problems: (1) Cervicalgia Status: Chronic (2) Depression with anxiety Status: Chronic (3) DM type 2 (diabetes mellitus, type 2) Status: Chronic (4) Gastroparesis Status: Chronic (5) GERD (gastroesophageal reflux disease) Status: Chronic (6) IBS (irritable bowel syndrome) Status: Chronic (7) Moderate persistent asthma Status: Chronic (8) Obesity Status: Chronic Surgical Problems: (1) H/O dilation and curettage Status: Chronic (2) H/O: hysterectomy Permanent Comment: COURT with SBO performed by Dr. Tanner 2007 Status: Chronic (3) History of tonsillectomy and adenoidectomy Status: Chronic (4) History of tubal ligation Status: Chronic Social History Problems: (1) Herpes simplex Status: Resolved Current/Historical Medications Scheduled Amitriptyline HCl (Amitriptyline HCl), 100 MG PO HS Aspirin (Aspirin), 81 MG PO DAILY Atorvastatin (Lipitor), 80 MG PO HS Buspirone Hcl (Buspirone Hcl), 5 MG PO BID Duloxetine HCl (Duloxetine HCl), 60 MG PO DAILY Esomeprazole Magnesium (Esomeprazole Magnesium), 40 MG PO QAM Estradiol Vaginal (Estrace), 1 APPLN PV 2XWK Ferrous Sulfate (Ferrous Sulfate), 325 MG PO TIDM Fluticasone Prop/Salmeterol (Advair Diskus 500/50 60 Dose), 1 PUFF INH BID Fluticasone Propionate (Fluticasone Propionate), 1 SPRAYS JG BID Hydroxyzine HCl (Hydroxyzine HCl), 50 MG PO DAILY Insulin Glargine (Lantus Solostar), 5 UNITS SC HS Lisinopril (Lisinopril), 2.5 MG PO DAILY Metformin HCl (Metformin HCl), 500 MG PO BIDM Metoclopramide Hcl (Reglan), 10 MG PO ACHS Mirabegron (Myrbetriq Er), 25 MG PO QAM Montelukast Sodium (Singulair), 10 MG PO DAILY Multivitamin (Multivitamin), 1 TAB PO DAILY Oxybutynin Chloride (Ditropan), 10 MG PO DAILY Polyethylene (Polyethylene Glycol 3350), 17 GM PO QAM Potassium Gluconate (Potassium Gluconate), 1,190 MG PO DAILY Ranitidine HCl (Ranitidine HCl), 150 MG PO HS Senna/Docusate Sod (Senokot S), 1 TAB PO QAM Sucralfate (Sucralfate), 1 GM PO ACHS Scheduled PRN Dicyclomine Hcl (Dicyclomine Hcl), 10 MG PO QID PRN for Pain Ipratropium-Albuterol (Duoneb), 1 TREATMENT INH QID PRN for SOB/Wheezing Melatonin (Kp Melatonin), 10 MG PO HS PRN for Insomnia Promethazine HCl (Promethazine HCl), 25 MG PO Q6H PRN for Nausea Valacyclovir HCl (Valacyclovir HCl), 500 MG PO TID PRN for Outbreaks Allergies Coded Allergies: Hydromorphone (Verified Allergy, Severe, itching, 05/03/17) Ondansetron (Verified Allergy, Intermediate, hives; RASH, 05/03/17) Sulfa Antibiotics (Verified Allergy, Intermediate, rash, 05/03/17) Aminoglycosides (Verified Allergy, Unknown, >, 05/03/17) Bacitracin (Verified Allergy, Unknown, >, 05/03/17) Ceftriaxone (Verified Allergy, Unknown, Rash, hives and itchiness., 05/03/17 ) Cephalexin (Verified Allergy, Unknown, hives, 05/03/17) Latex1 -Allergic Contact Dermititis (Verified Allergy, Unknown, 05/03/17) Neomycin (Verified Allergy, Unknown, >, 05/03/17) Polymyxin B (Verified Allergy, Unknown, >, 05/03/17) Sulfamethoxazole w/Trimethoprim (Verified Allergy, Unknown, Unknown, ) Vital Signs Date Time Temp Pulse Resp B/P (MAP) Pulse Ox O2 Delivery O2 Flow Rate FiO2 06/06/17 14:51 85 18 135/86 96 Room Air 06/06/17 13:46 36.7 81 20 137/94 99 Room Air Departure Information Impression Primary Impression: Left ankle sprain Referrals Cipriano Peña M.D. (MEDICAL) (PCP) Patient Instructions My [facility] Additional Instructions Ibuprofen(Motrin, Advil) may be used for fever or pain. Use 600mg every six hours as needed. Take with food. Avoid using more than 2400mg in a 24 hour period. Do not use 2400mg per day for more than three consecutive days without physician direction. Prolonged inappropriate use can lead to stomach upset or ulcers. This medication can be taken if you need to drive, work, or perform activities which may be dangerous when taking narcotic pain medication. (AND/OR) Acetaminophen(Tylenol) may be used for fever or pain. Use 1000mg every six hours as needed. Avoid using more than 3000mg in a 24 hour period. This medication can be taken if you need to drive, work, or perform activities which may be dangerous when taking narcotic pain medication. Ice compresses for 20 minutes at a time four times daily for 2-3 days. Use the gel splint and crutches as instructed. Rest and elevate your injury. Continue current medications. Return to the ER immediately for any numbness, tingling, severe pain, extreme swelling in the extremity or as needed. Followup with your family doctor or orthopedic surgery if no improvement in 5-7 days.
[2017-06-06] MEDS ORDERED: MONT1TAB3 PO (14:15)
[2017-06-06] MEDS ORDERED: ATR25 PO (14:15)
--- NOTE | 2017-06-06 14:22 | DIAGNOSTIC IMAGING REPORT ---
LEFT ANKLE MIN 3 VIEWS ROUTINE HISTORY: 57 years-old Female LEFT, TWISTING INJURY COMPARISON: None available TECHNIQUE: 3 views of the left ankle FINDINGS: Talar dome is smooth without osteochondral defect. There is no acute fracture, dislocation or significant degenerative changes. Mild dorsal spurring is noted within the talonavicular joint. There is mild circumferential soft tissue swelling about the ankle without large joint effusion. IMPRESSION: Mild circumferential soft tissue swelling about the ankle without acute fracture or dislocation. The above report was generated using voice recognition software. It may contain grammatical, syntax or spelling errors. Electronically signed by: Nixon Moctezuma M.D. 06/06/2017 2:21 PM Dictated Date/Time: 06/06/2017 2:19 PM
[2017-06-06 14:51] VITALS: BP 135/86; PULSE 85; O2SAT 96
[2017-08-11] MEDS ORDERED: OXYB5TAB74 PO (14:15)
[2017-08-11] MEDS ORDERED: PROM25TA16 PO (14:59)
[2017-08-11] MEDS ORDERED: POTA1TAB PO (15:03)
[2017-08-11] MEDS ORDERED: ASPI1TAB83 PO (15:29)
[2017-08-11] MEDS ORDERED: MULT-506 PO (15:53)
[2017-08-11] MEDS ORDERED: CYM60 PO (15:56)
[2017-08-11] MEDS ORDERED: SUCR1TAB PO (15:56)
[2017-08-11] MEDS ORDERED: MRLP527 PO (15:56)
[2017-08-11] MEDS ORDERED: RANI150T2 PO (15:56)
[2017-08-11] MEDS ORDERED: ADVIN50/60 INH (16:10)
[2017-08-11] MEDS ORDERED: GLC500 PO (16:26)
[2017-08-11] MEDS ORDERED: BUSP5TAB59 PO (16:26)
[2017-08-11] MEDS ORDERED: ESTCR PV (18:18)
== END 2017-06-06 14:51 | disposition home or self-care (01) ==
LOC: C.EDB 13:45 → C.EDD 14:51
DX: S93.402A Sprain of unspecified ligament of left ankle, initial encounter (principal); X50.0XXA Overexertion from strenuous movement or load, initial encounter; Y93.K1 Activity, walking an animal; F41.8 Other specified anxiety disorders; E11.43 Type 2 diabetes mellitus with diabetic autonomic (poly)neuropathy; K21.9 Gastro-esophageal reflux disease without esophagitis; K58.9 Irritable bowel syndrome, unspecified; J45.40 Moderate persistent asthma, uncomplicated; E66.9 Obesity, unspecified; Z68.41 Body mass index [BMI] 40.0-44.9, adult; Z90.710 Acquired absence of both cervix and uterus; Z98.51 Tubal ligation status; Z79.82 Long term (current) use of aspirin; Z79.4 Long term (current) use of insulin; Z79.899 Other long term (current) drug therapy

== ENCOUNTER 2017-07-20 21:42 | Emergency (ER) | payer OTHER ==
[~2017-07-20] VITALS: Ht 154.9 cm; Wt 98.7 kg
[~2017-07-20 21:42] MED LIST changes: -ASPI-390 PO; +ATR25 PO; -HYDR1CAP85 PO; -MECL1TAB40 PO; +MONT1TAB3 PO
[2017-07-20 21:43] VITALS: TEMP 36.5; Ht 154.9 cm; Wt 98.7 kg
[2017-07-20 21:50] VITALS: O2SAT 98
[2017-07-20 22:09] LABS: MEAN CELL VOLUME 84.4 fL (80-100); MEAN CORPUSCULAR HEMOGLOBIN 28.8 pg (25-34); MEAN CORPUSCULAR HGB CONC 34.1 g/dl (32-36); MEAN PLATELET VOLUME 8.9 fL (7.4-10.4); PLATELET COUNT 363 K/uL (130-400); RED BLOOD COUNT 4.62 M/uL (4.2-5.4); WHITE BLOOD COUNT 13.68 K/uL (4.8-10.8)
--- NOTE | 2017-07-20 22:11 | DIAGNOSTIC IMAGING REPORT ---
CHEST ONE VIEW PORTABLE CLINICAL HISTORY: Atypical chest pain COMPARISON STUDY: 05/23/2017 FINDINGS: The cardiac and mediastinal contours remain stable. There is mild chronic elevation flattening of the right hemidiaphragm. There is no failure. There is no focal pulmonary consolidation. There are no pleural effusions.[ IMPRESSION: No active disease in the chest. Electronically signed by: Enrique Anton M.D. 07/20/2017 10:10 PM Dictated Date/Time: 07/20/2017 10:10 PM
[2017-07-20] MEDS ORDERED: MELA1TAB22 PO (22:20)
[2017-07-20 22:28] LABS: BUN/CREATININE RATIO 15.5 (10-20); CREATININE 0.76 mg/dl (0.60-1.20); POTASSIUM 3.6 mmol/L (3.5-5.1)
[2017-07-20 22:33] LABS: ALB/GLOB RATIO 1.1 (0.9-2); CKMB/CK RATIO 0.8 (0-3.0)
[2017-07-20 22:37] LABS: INR 0.9 (0.9-1.1)
[2017-07-20] MEDS ORDERED: KETOROLAC TROMETHAMINE 30 MG/ML VIAL IV STA (23:24)
--- NOTE | 2017-07-21 01:40 | EMERGENCY ROOM VISIT NOTE ---
History First contact with patient: 22:06 Chief Complaint: CHEST PAIN Stated Complaint: CHEST PAIN Nursing Triage Summary: Pt states chest pain started at 1999, feels sharp, states she became SOB at that time, Pt a/ox3, lungs decreased, abd obese, positive BS, positve pulses. History of Present Illness The patient is a 57 year old female who presents to the Emergency Room with complaints of midsternal chest pain since 10 PM tonight described as aching, ranging in severity 4 out of 10. Nothing makes it better or worse. It does not radiate. Patient follows with Dr. Ivey. She had a recent normal stress test per patient. Patient denies dyspnea, fever, chills, abdominal pain, back pain, leg pain or swelling, radiating pain, diaphoresis, nausea or any other medical complaints. No prior heart disease. Review of Systems See HPI for pertinent positives & negatives. A total of 10 systems reviewed and were otherwise negative. Past Medical/Surgical History Medical Problems: (1) Abdominal pain (2) Cervicalgia (3) Depression with anxiety (4) DM type 2 (diabetes mellitus, type 2) (5) Gastroparesis (6) GERD (gastroesophageal reflux disease) (7) IBS (irritable bowel syndrome) (8) Moderate persistent asthma (9) Obesity Surgical Problems: (1) H/O dilation and curettage (2) H/O: hysterectomy (3) History of tonsillectomy and adenoidectomy (4) History of tubal ligation Social History Problems: (1) Herpes simplex Family History FH: cancer FATHER Heart disease Social History Smoking Status: Never Smoker Alcohol Use: none Drug Use: none Housing Status: lives with significant other Occupation Status: employed Current/Historical Medications Scheduled Amitriptyline HCl (Amitriptyline HCl), 100 MG PO HS Aspirin (Aspirin), 81 MG PO DAILY Atorvastatin (Lipitor), 80 MG PO HS Buspirone Hcl (Buspirone Hcl), 5 MG PO BID Duloxetine HCl (Duloxetine HCl), 60 MG PO DAILY Esomeprazole Magnesium (Esomeprazole Magnesium), 40 MG PO QAM Estradiol Vaginal (Estrace), 1 APPLN PV 2XWK Ferrous Sulfate (Ferrous Sulfate), 325 MG PO TIDM Fluticasone Prop/Salmeterol (Advair Diskus 500/50 60 Dose), 1 PUFF INH BID Fluticasone Propionate (Fluticasone Propionate), 1 SPRAYS JG BID Hydroxyzine HCl (Hydroxyzine HCl), 25 MG PO BID Insulin Glargine (Lantus Solostar), 5 UNITS SC HS Lisinopril (Lisinopril), 2.5 MG PO DAILY Metformin HCl (Metformin HCl), 500 MG PO BIDM Metoclopramide Hcl (Reglan), 10 MG PO ACHS Mirabegron (Myrbetriq Er), 25 MG PO QAM Montelukast Sodium (Singulair), 10 MG PO DAILY Multivitamin (Multivitamin), 1 TAB PO DAILY Oxybutynin Chloride (Ditropan), 10 MG PO DAILY Polyethylene (Polyethylene Glycol 3350), 17 GM PO QAM Potassium Gluconate (Potassium Gluconate), 1,190 MG PO DAILY Ranitidine HCl (Ranitidine HCl), 150 MG PO HS Senna/Docusate Sod (Senokot S), 1 TAB PO QAM Sucralfate (Sucralfate), 1 GM PO ACHS Scheduled PRN Dicyclomine Hcl (Dicyclomine Hcl), 10 MG PO QID PRN for Pain Ipratropium-Albuterol (Duoneb), 1 TREATMENT INH QID PRN for SOB/Wheezing Melatonin-Pyridoxine (Melatonin), 10 MG PO HS PRN for Sleep Promethazine HCl (Promethazine HCl), 25 MG PO Q6H PRN for Nausea Valacyclovir HCl (Valacyclovir HCl), 500 MG PO TID PRN for Outbreaks Allergies Coded Allergies: Hydromorphone (Verified Allergy, Severe, itching, 07/20/17) Ondansetron (Verified Allergy, Intermediate, hives; RASH, 07/20/17) Sulfa Antibiotics (Verified Allergy, Intermediate, rash, 07/20/17) Aminoglycosides (Verified Allergy, Unknown, >, 07/20/17) Bacitracin (Verified Allergy, Unknown, >, 07/20/17) Ceftriaxone (Verified Allergy, Unknown, Rash, hives and itchiness., ) Cephalexin (Verified Allergy, Unknown, hives, 07/20/17) Latex1 -Allergic Contact Dermititis (Verified Allergy, Unknown, 07/20/17) Neomycin (Verified Allergy, Unknown, >, 07/20/17) Polymyxin B (Verified Allergy, Unknown, >, 07/20/17) Sulfamethoxazole w/Trimethoprim (Verified Allergy, Unknown, Unknown, ) Physical Exam Vital Signs Date Time Temp Pulse Resp B/P (MAP) Pulse Ox O2 Delivery O2 Flow Rate FiO2 07/21/17 01:00 84 20 108/79 Room Air 07/21/17 00:03 86 20 142/89 95 Room Air 07/20/17 23:05 79 20 142/92 95 Room Air 07/20/17 22:16 79 18 120/74 96 Room Air 07/20/17 22:11 96 Room Air 07/20/17 22:06 81 07/20/17 21:50 98 Room Air 07/20/17 21:50 98 Room Air 07/20/17 21:43 36.5 78 18 157/99 96 Room Air Physical Exam VITALS: Vitals are noted on the nurse's note and reviewed by myself. Vital signs stable. GENERAL: Pleasant female, in no acute distress, nondiaphoretic, well-developed well-nourished. SKIN: The skin was without rashes, erythema, edema, or bruising. There is no tenting of the skin. Capillary reflex less than 2 seconds. HEAD: Normocephalic atraumatic. EARS: External auditory canals clear, tympanic membranes pearly ramirez without erythema or effusion bilaterally. EYES: Pupils equal round and reactive to light and accommodation. Conjunctivae without injection, sclerae without icterus. Extraocular movements intact. NOSE: Patent, turbinates without inflammation or discharge. MOUTH: Mucous membranes moist. Pharynx without erythema or exudate. Uvula midline. Airway patent. Tongue does not deviate. NECK: Supple without nuchal rigidity. No lymphadenopathy. No thyromegaly. Cervical spine is nontender. No JVD. HEART: Regular rate and rhythm anterior chest tender to palpation easily reproducing symptoms LUNGS: Clear to auscultation bilaterally without wheezes, rales or rhonchi. No dullness to percussion. No retractions or accessory muscle use. ABDOMEN: Positive bowel sounds x 4. Normal tympanic percussion. Soft, nontender, without masses or organomegaly. Cesar sign negative. No guarding or rebound tenderness. MUSCULOSKELETAL: No muscle atrophy, erythema, or edema noted. NEURO: Patient was alert and oriented to person place and time. Normal sensation to light and sharp touch. No focal neurological deficits. Medical Decision & Procedures Laboratory Results 07/20/17 22:00 07/20/17 22:00 Test 07/20/17 22:00 Red Blood Count 4.62 M/uL (4.2-5.4) Mean Corpuscular Volume 84.4 fL (80-100) Mean Corpuscular Hemoglobin 28.8 pg (25-34) Mean Corpuscular Hemoglobin Concent 34.1 g/dl (32-36) RDW Standard Deviation 42.0 fL (36.4-46.3) RDW Coefficient of Variation 13.8 % (11.5-14.5) Mean Platelet Volume 8.9 fL (7.4-10.4) Prothrombin Time 10.0 SECONDS (9.0-12.0) Prothromb Time International Ratio 0.9 (0.9-1.1) Activated Partial Thromboplast Time 25.5 SECONDS (21.0-31.0) Partial Thromboplastin Ratio 1.0 D-Dimer 370 ug/L FEU (0-500) Anion Gap 8.0 mmol/L (3-11) Est Creatinine Clear Calc Drug Dose 85.7 ml/min Estimated GFR () 99.5 Estimated GFR (Non- 85.9 BUN/Creatinine Ratio 15.5 (10-20) Calcium Level 9.0 mg/dl (8.5-10.1) Total Bilirubin 0.3 mg/dl (0.2-1) Aspartate Amino Transf (AST/SGOT) 24 U/L (15-37) Alanine Aminotransferase (ALT/SGPT) 49 U/L (12-78) Alkaline Phosphatase 161 U/L (45-117) Total Creatine Kinase 65 U/L (26-192) Creatine Kinase MB 0.5 ng/ml (0.5-3.6) Creatine Kinase MB Ratio 0.8 (0-3.0) Total Protein 6.8 gm/dl (6.4-8.2) Albumin 3.6 gm/dl (3.4-5.0) Globulin 3.2 gm/dl (2.5-4.0) Albumin/Globulin Ratio 1.1 (0.9-2) Medications Administered Medications (Trade) Dose Ordered Sig/Antony Route Start Time Stop Time Status Last Admin Dose Admin Ketorolac Tromethamine (Toradol Inj) 30 mg NOW STAT IV 07/20/17 23:24 07/20/17 23:25 DC 07/21/17 00:02 30 MG ED Course Prior records/ancillary studies reviewed. Triage Nursing notes reviewed. The patient's history was concerning for chest pain. Differential diagnosis: Etiologies such as cardiac ischemia, aortic dissection, pulmonary embolism, pneumonia, pneumothorax, musculoskeletal, infections, pericarditis, myocarditis , esophageal rupture, gastrointestinal, as well as others were entertained. Physical examination: As above. ER treatment provided: Toradol On reassessment the patient felt better. Diagnostic interpretation by me: The electrocardiogram was negative for pathologic change. Normal sinus, normal intervals, no acute ST-T wave changes, poor baseline. Impression normal sinus rhythm interpreted by myself The labs revealed negative troponin 2 that was greater than 2 hours apart. Negative D-dimer Imaging studies: Chest x-ray as above CHEST ONE VIEW PORTABLE CLINICAL HISTORY: Atypical chest pain COMPARISON STUDY: 05/23/2017 FINDINGS: The cardiac and mediastinal contours remain stable. There is mild chronic elevation flattening of the right hemidiaphragm. There is no failure. There is no focal pulmonary consolidation. There are no pleural effusions.[ IMPRESSION: No active disease in the chest. Electronically signed by: Enrique Anton M.D. 07/20/2017 10:10 PM Exam and history seem consistent with noncardiac chest pain. Patient was neurovascularly and neurologically intact. Patient is well-appearing. Patient is tolerating fluids. Patient did not have an acute abdomen on exam. Patient was ambulating without difficulties. Patient was advised to follow-up with family care in a few days or here in the ER sooner for severe pain, fevers, chest pain, abdominal pain, worsening signs or symptoms or as needed. Patient was advised to follow-up WITH cardiology for her ongoing symptoms. By the evaluation outlined above emergent etiologies such as cardiac ischemia, aortic dissection, pulmonary embolism, pneumonia, pneumothorax, infections, pericarditis, myocarditis, gastrointestinal, as well as others were deemed relatively unlikely. The pt informed about the findings as listed above. All questions were answered and pleased with the treatment. Return instructions were outlined and the patient was discharged in stable condition. Case reviewed by attending Referral: The patient was referred back to cardiology and/or primary care physician for follow-up in 2 to 3 days for a recheck of the current condition. Medical Decision As above Impression Primary Impression: Substernal precordial chest pain Departure Information Dispostion Home / Self-Care Condition GOOD Referrals Cipriano Peña M.D. (MEDICAL) (PCP) Patient Instructions My [facility] Additional Instructions Ibuprofen(Motrin, Advil) may be used for fever or pain. Use 600mg every six hours as needed. Take with food. Avoid using more than 2400mg in a 24 hour period. Do not use 2400mg per day for more than three consecutive days without physician direction. Prolonged inappropriate use can lead to stomach upset or ulcers. (AND/OR) Acetaminophen(Tylenol) may be used for fever or pain. Use 1000mg every six hours as needed. Avoid using more than 3000mg in a 24 hour period. Rest and drink plenty of fluids as tolerated. Continue current medications. Avoid strenuous activities and anything that worsens your pain. Resume normal activities once your symptoms resolve. Return to the ER immediately for worsening or persistent chest pain, abdominal pain, vomiting, fevers, chest pains, difficulty breathing, worsening of your condition, or as needed. Follow up with your primary physician or cardiology in 2-3 days for a recheck of your current condition.
[2017-07-21 01:50] VITALS: BP 128/70; PULSE 84; O2SAT 98
[2017-08-11] MEDS ORDERED: OXYB5TAB74 PO (14:15)
[2017-08-11] MEDS ORDERED: PROM25TA16 PO (14:59)
[2017-08-11] MEDS ORDERED: POTA1TAB PO (15:03)
[2017-08-11] MEDS ORDERED: ASPI1TAB83 PO (15:29)
[2017-08-11] MEDS ORDERED: MULT-506 PO (15:53)
[2017-08-11] MEDS ORDERED: CYM60 PO (15:56)
[2017-08-11] MEDS ORDERED: RANI150T2 PO (15:56)
[2017-08-11] MEDS ORDERED: MRLP527 PO (15:56)
[2017-08-11] MEDS ORDERED: SUCR1TAB PO (15:56)
[2017-08-11] MEDS ORDERED: ADVIN50/60 INH (16:10)
[2017-08-11] MEDS ORDERED: BUSP5TAB59 PO (16:26)
[2017-08-11] MEDS ORDERED: GLC500 PO (16:26)
[2017-08-11] MEDS ORDERED: ESTCR PV (18:18)
== END 2017-07-21 01:52 | disposition home or self-care (01) ==
LOC: C.EDB 21:42
DX: R07.2 Precordial pain (principal); F41.9 Anxiety disorder, unspecified; F32.9 Major depressive disorder, single episode, unspecified; E11.9 Type 2 diabetes mellitus without complications; K21.9 Gastro-esophageal reflux disease without esophagitis; K31.84 Gastroparesis; K58.9 Irritable bowel syndrome, unspecified; J45.909 Unspecified asthma, uncomplicated; E66.9 Obesity, unspecified; Z80.9 Family history of malignant neoplasm, unspecified; Z82.49 Family history of ischemic heart disease and other diseases of the circulatory system; Z79.82 Long term (current) use of aspirin; Z79.4 Long term (current) use of insulin; Z79.899 Other long term (current) drug therapy

== ENCOUNTER 2017-08-11 18:24 | Emergency (ER) | payer OTHER ==
[~2017-08-11] VITALS: Ht 154.9 cm; Wt 100.2 kg
[~2017-08-11 18:24] MED LIST changes: +ADVIN50/60 INH; +ASPI1TAB83 PO; +BUSP5TAB59 PO; +CYM60 PO; +ESTCR PV; +GLC500 PO; +MELA1TAB22 PO; -MELA1TAB5 PO; +MRLP527 PO; +MULT-506 PO; +OXYB5TAB74 PO; +POTA1TAB PO; +PROM25TA16 PO; +RANI150T2 PO; +SUCR1TAB PO
[2017-08-11 18:27] VITALS: BP 157/91; PULSE 87; TEMP 36.6; O2SAT 96; Ht 154.9 cm; Wt 100.2 kg
[2017-08-11] MEDS ORDERED: TRAMADOL HCL 50 MG TAB PO STA (19:04)
--- NOTE | 2017-08-11 19:04 | EMERGENCY ROOM VISIT NOTE ---
History Report prepared by Tamera: Charla Louie Under the Supervision of: Dr. Favian Montes D.O. First contact with patient: 18:46 Chief Complaint: HIP PAIN Stated Complaint: PAIN IN RT HIP History of Present Illness The patient is a 57 year old female who presents to the Emergency Room with complaints of persistent right hip pain starting [employer]. The patient was sitting on the couch watching TV when the pain started. The pain shoots down into her knee. She is taking Tylenol for pain. She does not have any other symptoms. She has a history of diabetes. Source of History: patient Onset: [employer] Position: other (right hip) Quality: other (shooting pain) Timing: other (persistent) Modifying Factors (Relieving): tylenol Note: Pt reports knee pain. Review of Systems See HPI for pertinent positives & negatives. A total of 10 systems reviewed and were otherwise negative. Past Medical & Surgical Medical Problems: (1) Abdominal pain (2) Cervicalgia (3) Depression with anxiety (4) DM type 2 (diabetes mellitus, type 2) (5) Gastroparesis (6) GERD (gastroesophageal reflux disease) (7) IBS (irritable bowel syndrome) (8) Moderate persistent asthma (9) Obesity Surgical Problems: (1) H/O dilation and curettage (2) H/O: hysterectomy (3) History of tonsillectomy and adenoidectomy (4) History of tubal ligation Social History Problems: (1) Herpes simplex Family History FH: cancer FATHER Heart disease Social History Smoking Status: Former Smoker Alcohol Use: none Drug Use: none Housing Status: lives with significant other Occupation Status: employed Current/Historical Medications Scheduled Amitriptyline HCl (Amitriptyline HCl), 100 MG PO HS Aspirin (Aspirin), 81 MG PO DAILY Atorvastatin (Lipitor), 80 MG PO HS Buspirone Hcl (Buspirone Hcl), 5 MG PO BID Duloxetine HCl (Duloxetine HCl), 60 MG PO DAILY Esomeprazole Magnesium (Esomeprazole Magnesium), 40 MG PO QAM Estradiol Vaginal (Estrace), 1 APPLN PV 2XWK Ferrous Sulfate (Ferrous Sulfate), 325 MG PO TIDM Fluticasone Prop/Salmeterol (Advair Diskus 500/50 60 Dose), 1 PUFF INH BID Fluticasone Propionate (Fluticasone Propionate), 1 SPRAYS JG BID Hydroxyzine HCl (Hydroxyzine HCl), 25 MG PO BID Insulin Glargine (Lantus Solostar), 5 UNITS SC HS Lisinopril (Lisinopril), 2.5 MG PO DAILY Metformin HCl (Metformin HCl), 500 MG PO BIDM Metoclopramide Hcl (Reglan), 10 MG PO ACHS Mirabegron (Myrbetriq Er), 25 MG PO QAM Montelukast Sodium (Singulair), 10 MG PO DAILY Multivitamin (Multivitamin), 1 TAB PO DAILY Oxybutynin Chloride (Ditropan), 10 MG PO DAILY Polyethylene (Polyethylene Glycol 3350), 17 GM PO QAM Potassium Gluconate (Potassium Gluconate), 1,190 MG PO DAILY Ranitidine HCl (Ranitidine HCl), 150 MG PO HS Senna/Docusate Sod (Senokot S), 1 TAB PO QAM Sucralfate (Sucralfate), 1 GM PO ACHS Scheduled PRN Dicyclomine Hcl (Dicyclomine Hcl), 10 MG PO QID PRN for Pain Ipratropium-Albuterol (Duoneb), 1 TREATMENT INH QID PRN for SOB/Wheezing Melatonin-Pyridoxine (Melatonin), 10 MG PO HS PRN for Sleep Promethazine HCl (Promethazine HCl), 25 MG PO Q6H PRN for Nausea Valacyclovir HCl (Valacyclovir HCl), 500 MG PO TID PRN for Outbreaks Allergies Coded Allergies: Hydromorphone (Verified Allergy, Severe, itching, 07/20/17) Ondansetron (Verified Allergy, Intermediate, hives; RASH, 07/20/17) Sulfa Antibiotics (Verified Allergy, Intermediate, rash, 07/20/17) Aminoglycosides (Verified Allergy, Unknown, >, 07/20/17) Bacitracin (Verified Allergy, Unknown, >, 07/20/17) Ceftriaxone (Verified Allergy, Unknown, Rash, hives and itchiness., ) Cephalexin (Verified Allergy, Unknown, hives, 07/20/17) Latex1 -Allergic Contact Dermititis (Verified Allergy, Unknown, 07/20/17) Neomycin (Verified Allergy, Unknown, >, 07/20/17) Polymyxin B (Verified Allergy, Unknown, >, 07/20/17) Sulfamethoxazole w/Trimethoprim (Verified Allergy, Unknown, Unknown, ) Physical Exam Vital Signs Date Time Temp Pulse Resp B/P (MAP) Pulse Ox O2 Delivery O2 Flow Rate FiO2 08/11/17 18:27 36.6 87 18 157/91 96 Room Air Physical Exam CONSTITUTIONAL/VITAL SIGNS: Reviewed / noted above. GENERAL: Non-toxic in appearance. INTEGUMENTARY: Warm, dry, and [place]. HEAD: Normocephalic. EYES: without scleral icterus or trauma. ENT/OROPHARYNX: clear and moist. LYMPHADENOPATHY/NECK: Is supple without lymphadenopathy or meningismus. RESPIRATORY: Lungs clear and equal. CARDIOVASCULAR: Regular rate and rhythm. GI/ABDOMEN: Soft and nontender. No organomegaly or pulsatile mass. No rebound or guarding. Normal bowel sounds. EXTREMITIES: Warm and well perfused. Mild tenderness to palpation of the left buttock region. BACK: No CVA tenderness. NEUROLOGICAL: Intact without focal deficits. PSYCHIATRIC: normal affect. MUSCULOSKELETAL: Normally developed with good muscle tone. Medical Decision & Procedures ED Course 184: Previous medical records were reviewed. The patient was evaluated in room D7. A complete history and physical examination was performed. I discussed the results and findings with the patient. She verbalized agreement of the treatment plan. She was discharged home. Medical Decision Differential considered includes cauda equina syndrome, conus medullaris, spinal cord compression syndrome, peripheral nerve compression, fractures or subluxations, intra-abdominal pathology such as abdominal aortic aneurysm or kidney stones, muscle strain, transverse myelitis, spinal cord injury. This is a 57-year-old female who presents to the ED with a chief complaint of right buttock pain. The patient states that she was sitting on it tonight and it began to hurt. She states that the pain radiates somewhat down her right leg. She denies any bowel or bladder dysfunction. She denies any weakness in the extremity. She has no other complaints. Denies any trauma or falls. Exam reveals some tenderness to the right buttock region. The patient was treated with Ultram by mouth and given an Ultram home pack. She was felt to be stable for discharge. Medication Reconcilliation Current Medication List: was personally reviewed by me Blood Pressure Screening Patient's blood pressure: Elevated blood pressure Blood pressure disposition: Elevated BP felt to be situational Impression Primary Impression: Buttock pain Scribe Attestation The scribe's documentation has been prepared under my direction and personally reviewed by me in its entirety. I confirm that the note above accurately reflects all work, treatment, procedures, and medical decision making performed by me. Departure Information Dispostion Home / Self-Care Referrals Cipriano Peña M.D. (MEDICAL) (PCP) Patient Instructions My [facility] Additional Instructions Follow-up with your doctor for further care and evaluation in 1-2 days. Return to the emergency department for worsening or new symptoms or any concerns. You have been examined and treated today on an emergency basis only. This is not a substitute for, or an effort to provide, complete comprehensive medical care. It is impossible to recognize and treat all injuries or illnesses in a single emergency department visit. It is therefore important that you follow up closely with your doctor. Call as soon as possible for an appointment. Ultram: Take 1 tablet every 6-8 hours as needed for discomfort.
[2017-08-11] MEDS ORDERED: ESOM20GR PO (19:14)
[2017-08-11] MEDS ORDERED: SNG10 PO (19:14)
[2017-08-11] MEDS ORDERED: MELA1CAP9 PO (19:14)
[2017-08-11] MEDS ORDERED: HYDR1CAP85 PO (19:14)
[2017-08-11] MEDS ORDERED: TRAMADOL HCL 50 MG HOME PACK PO ONE (19:15)
[2017-08-11] MEDS ORDERED: VLT500 PO (19:28)
[2017-08-11] MEDS ORDERED: SENN-65 PO (20:07)
[2017-08-11] MEDS ORDERED: FLNIN/ NAE (20:57)
[2017-08-11] MEDS ORDERED: METO-157 PO (21:00)
[2017-08-11] MEDS ORDERED: ATOR-26 PO (21:11)
[2017-08-11] MEDS ORDERED: LSN25 PO (21:39)
[2017-08-11] MEDS ORDERED: DICY10CA12 PO (21:39)
[2017-08-11] MEDS ORDERED: FERR325T PO (21:44)
[2017-08-11] MEDS ORDERED: AMT100 PO (21:46)
[2017-08-11] MEDS ORDERED: MIRA100T PO (21:50)
[2017-08-11] MEDS ORDERED: INSDGIPEN SC (22:29)
[2017-08-11] MEDS ORDERED: IPRASOL4 INH (22:43)
== END 2017-08-11 19:31 | disposition home or self-care (01) ==
LOC: C.EDB 18:26 → C.EDD 19:31
DX: M25.551 Pain in right hip (principal); F32.9 Major depressive disorder, single episode, unspecified; F41.9 Anxiety disorder, unspecified; E11.43 Type 2 diabetes mellitus with diabetic autonomic (poly)neuropathy; K21.9 Gastro-esophageal reflux disease without esophagitis; K58.9 Irritable bowel syndrome, unspecified; J45.40 Moderate persistent asthma, uncomplicated; E66.9 Obesity, unspecified; Z68.41 Body mass index [BMI] 40.0-44.9, adult; Z90.79 Acquired absence of other genital organ(s); Z98.51 Tubal ligation status; Z80.9 Family history of malignant neoplasm, unspecified; Z87.891 Personal history of nicotine dependence; Z79.82 Long term (current) use of aspirin; Z79.4 Long term (current) use of insulin; Z79.899 Other long term (current) drug therapy

== ENCOUNTER 2017-08-25 21:10 | Emergency (ER) | payer OTHER ==
[~2017-08-25] VITALS: Ht 154.9 cm; Wt 99.5 kg
[~2017-08-25 21:10] MED LIST changes: -ADVIN50/60 INH; -ASPI1TAB83 PO; -ATR25 PO; -BUSP5TAB59 PO; -CYM60 PO; -ESOM1CAP34 PO; +ESOM20GR PO; -ESTCR PV; -GLC500 PO; -MELA1TAB22 PO; -MONT1TAB3 PO; -MRLP527 PO; -MULT-506 PO; -OXYB5TAB74 PO; -POTA1TAB PO; -PROM25TA16 PO; -RANI150T2 PO; -SUCR1TAB PO
[2017-08-25 21:22] VITALS: TEMP 36.6; Ht 154.9 cm; Wt 99.5 kg
[2017-08-25] MEDS ORDERED: FAMOTIDINE 20 MG TAB PO STA (22:28)
[2017-08-25] MEDS ORDERED: SUCRALFATE 1 GM TAB PO STA (22:28)
[2017-08-25] MEDS ORDERED: GI COCKTAIL PO STA (22:28)
[2017-08-25] MEDS ORDERED: ALUMINUM/MAGNESIUM SUSP 30 ML UDC ONE (22:47)
[2017-08-25] MEDS ORDERED: LIDOCAINE HCL 2% VISC SOLN 20 ML UDC ONE (22:47)
--- NOTE | 2017-08-25 23:05 | EMERGENCY ROOM VISIT NOTE ---
History Report prepared by Tamera: Charla Louie Under the Supervision of: Dr. Favian Pearl M.D. First contact with patient: 22:26 Chief Complaint: ABDOMINAL PAIN Stated Complaint: STOMACH AND BACK PAIN Nursing Triage Summary: pt c/o left sided abd pain that radiates into her back. denies injury. states pain came on suddenly, states "we were down [place] the [employer] [place] [employer] and it just happened." associates nausea, denies diarrhea or urinary symptoms. pt alert and oriented x4. breathing WNL. bowel sounds WNL, abd soft, tender to palpitation on the left side History of Present Illness The patient is a 57 year old female who presents to the Emergency Room with complaints of persistent abdominal pain starting 1400 today. She also has back pain and nausea. She denies any urinary symptoms, vomiting, or change in bowel movements. She tried taking Tylenol for the pain to no significant relief. She has had pain like this in the past. Source of History: patient Onset: 1400 today Position: abdomen Quality: other (pain) Timing: other (persistent) Associated Symptoms: + nausea, + back pain, No vomiting, No urinary symptoms Note: Pt denies change in bowel movement. Review of Systems See HPI for pertinent positives & negatives. A total of 10 systems reviewed and were otherwise negative. Past Medical & Surgical Medical Problems: (1) Abdominal pain (2) Cervicalgia (3) Depression with anxiety (4) DM type 2 (diabetes mellitus, type 2) (5) Gastroparesis (6) GERD (gastroesophageal reflux disease) (7) IBS (irritable bowel syndrome) (8) Moderate persistent asthma (9) Obesity Surgical Problems: (1) H/O dilation and curettage (2) H/O: hysterectomy (3) History of tonsillectomy and adenoidectomy (4) History of tubal ligation Social History Problems: (1) Herpes simplex Family History FH: cancer FATHER Heart disease Social History Smoking Status: Former Smoker Alcohol Use: none Drug Use: none Housing Status: lives with significant other Occupation Status: employed Current/Historical Medications Scheduled Amitriptyline HCl (Amitriptyline HCl), 100 MG PO HS Aspirin (Aspirin), 81 MG PO DAILY Atorvastatin (Lipitor), 80 MG PO HS Buspirone Hcl (Buspirone Hcl), 5 MG PO BID Duloxetine HCl (Duloxetine HCl), 60 MG PO DAILY Esomeprazole Magnesium (Nexium), 20 MG PO DAILY Estradiol Vaginal (Estrace), 1 APPLN PV 2XWK Ferrous Sulfate (Ferrous Sulfate), 325 MG PO TIDM Fluticasone Prop/Salmeterol (Advair Diskus 500/50 60 Dose), 1 PUFF INH BID Fluticasone Propionate (Fluticasone Propionate), 1 SPRAY JG BID Hydroxyzine Pamoate (Vistaril), 25 MG PO BID Insulin Glargine (Lantus Solostar), 5 UNITS SC HS Lisinopril (Lisinopril), 2.5 MG PO DAILY Metformin HCl (Metformin HCl), 500 MG PO BIDM Metoclopramide Hcl (Reglan), 10 MG PO ACHS Mirabegron (Myrbetriq Er), 25 MG PO QAM Montelukast Sod (Montelukast Sodium), 10 MG PO DAILY Multivitamin (Multivitamin), 1 TAB PO DAILY Oxybutynin Chloride (Ditropan), 10 MG PO DAILY Polyethylene (Polyethylene Glycol 3350), 17 GM PO QAM Potassium Gluconate (Potassium Gluconate), 1,190 MG PO DAILY Ranitidine HCl (Ranitidine HCl), 150 MG PO HS Senna/Docusate Sod (Senokot S), 1 TAB PO QAM Scheduled PRN Dicyclomine Hcl (Dicyclomine Hcl), 10 MG PO QID PRN for Moderate Pain Ipratropium-Albuterol (Duoneb), 1 TREATMENT INH QID PRN for SOB/Wheezing Melatonin (Melatonin), 10 MG PO HS PRN for Sleep Promethazine HCl (Promethazine HCl), 25 MG PO Q6H PRN for Nausea Sucralfate (Sucralfate), 1 GM PO ACHS PRN for Stomach Pain Valacyclovir HCl (Valacyclovir HCl), 500 MG PO TID PRN for Outbreaks Allergies Coded Allergies: Hydromorphone (Verified Allergy, Severe, itching, 07/20/17) Ondansetron (Verified Allergy, Intermediate, hives; RASH, 07/20/17) Sulfa Antibiotics (Verified Allergy, Intermediate, rash, 07/20/17) Aminoglycosides (Verified Allergy, Unknown, >, 07/20/17) Bacitracin (Verified Allergy, Unknown, >, 07/20/17) Ceftriaxone (Verified Allergy, Unknown, Rash, hives and itchiness., ) Cephalexin (Verified Allergy, Unknown, hives, 07/20/17) Latex1 -Allergic Contact Dermititis (Verified Allergy, Unknown, 07/20/17) Neomycin (Verified Allergy, Unknown, >, 07/20/17) Polymyxin B (Verified Allergy, Unknown, >, 07/20/17) Sulfamethoxazole w/Trimethoprim (Verified Allergy, Unknown, Unknown, ) Physical Exam Vital Signs Date Time Temp Pulse Resp B/P (MAP) Pulse Ox O2 Delivery O2 Flow Rate FiO2 08/26/17 00:02 87 18 126/79 94 08/25/17 23:52 94 95 08/25/17 23:37 84 92 08/25/17 23:32 105/66 08/25/17 23:30 88 93 Room Air 08/25/17 23:20 122/87 08/25/17 21:22 36.6 113 18 133/82 96 Room Air Physical Exam GENERAL: Patient is a healthy-appearing well-nourished female HEAD: Normocephalic atraumatic EYES: Ocular movements intact pupils equal and react to light OROPHARYNX mucous membranes are moist no exudates present no erythema or edema present NECK: Supple no nuchal rigidity CHEST: Good equal expansion LUNGS: Clear and equal to auscultation CARDIAC: Normal S1 and S2 ABDOMEN: Soft nontender no guarding BACK: No CVA tenderness EXTREMITIES: No pain upon palpation normal muscle strength in all groups no clubbing cyanosis or edema NEURO: Patient is following commands and answering questions appropriately. Alert and oriented x3 Cranial Nerves 2-12 grossly intact Medical Decision & Procedures ER Provider Diagnostic Interpretation: X-ray results as stated below per interpretation by me: Chest/Abdomen X-ray 2 view: No evidence of pneumonia, congestion, or pneumothorax. No evidence of obstruction. Patient is constipated. No free air. Laboratory Results 08/25/17 20:40 Red Blood Count 4.34, Mean Corpuscular Volume 83.6, Mean Corpuscular Hemoglobin 28.6, Mean Corpuscular Hemoglobin Concent 34.2, Mean Platelet Volume 9.1, Neutrophils (%) (Auto) 53.5, Lymphocytes (%) (Auto) 36.9, Monocytes (%) (Auto) 7.1, Eosinophils (%) (Auto) 2.1, Basophils (%) (Auto) 0.2, Neutrophils # (Auto) 6.69, Lymphocytes # (Auto) 4.61, Monocytes # (Auto) 0.89, Eosinophils # (Auto) 0.26, Basophils # (Auto) 0.03 08/25/17 20:40 Test 08/25/17 20:40 White Blood Count 12.51 K/uL (4.8-10.8) Red Blood Count 4.34 M/uL (4.2-5.4) Hemoglobin 12.4 g/dL (12.0-16.0) Hematocrit 36.3 % (37-47) Mean Corpuscular Volume 83.6 fL (80-100) Mean Corpuscular Hemoglobin 28.6 pg (25-34) Mean Corpuscular Hemoglobin Concent 34.2 g/dl (32-36) Platelet Count 359 K/uL (130-400) Mean Platelet Volume 9.1 fL (7.4-10.4) Neutrophils (%) (Auto) 53.5 % Lymphocytes (%) (Auto) 36.9 % Monocytes (%) (Auto) 7.1 % Eosinophils (%) (Auto) 2.1 % Basophils (%) (Auto) 0.2 % Neutrophils # (Auto) 6.69 K/uL (1.4-6.5) Lymphocytes # (Auto) 4.61 K/uL (1.2-3.4) Monocytes # (Auto) 0.89 K/uL (0.11-0.59) Eosinophils # (Auto) 0.26 K/uL (0-0.5) Basophils # (Auto) 0.03 K/uL (0-0.2) RDW Standard Deviation 41.3 fL (36.4-46.3) RDW Coefficient of Variation 13.6 % (11.5-14.5) Immature Granulocyte % (Auto) 0.2 % Immature Granulocyte # (Auto) 0.03 K/uL (0.00-0.02) Urine Color YELLOW Urine Appearance CLEAR (CLEAR) Urine pH 5.5 (4.5-7.5) Urine Specific [place] 1.012 (1.000-1.030) Urine Protein NEG (NEG) Urine Glucose (UA) NEG (NEG) Urine Ketones NEG (NEG) Urine Occult Blood NEG (NEG) Urine Nitrite NEG (NEG) Urine Bilirubin NEG (NEG) Urine Urobilinogen NEG (NEG) Urine Leukocyte Esterase TRACE (NEG) Urine WBC (Auto) 1-5 /hpf (0-5) Urine RBC (Auto) 0-4 /hpf (0-4) Urine Hyaline Casts (Auto) 0 /lpf (0-5) Urine Epithelial Cells (Auto) 0-5 /lpf (0-5) Urine Bacteria (Auto) NEG (NEG) Anion Gap 8.0 mmol/L (3-11) Est Creatinine Clear Calc Drug Dose 90.9 ml/min Estimated GFR () 106.2 Estimated GFR (Non- 91.7 BUN/Creatinine Ratio 18.1 (10-20) Calcium Level 8.9 mg/dl (8.5-10.1) Total Bilirubin 0.2 mg/dl (0.2-1) Direct Bilirubin < 0.1 mg/dl (0-0.2) Aspartate Amino Transf (AST/SGOT) 16 U/L (15-37) Alanine Aminotransferase (ALT/SGPT) 42 U/L (12-78) Alkaline Phosphatase 149 U/L (45-117) Total Protein 6.4 gm/dl (6.4-8.2) Albumin 3.2 gm/dl (3.4-5.0) Lipase 208 U/L (73-393) Labs reviewed by ED physician. Medications Administered Medications (Trade) Dose Ordered Sig/Antony Route Start Time Stop Time Status Last Admin Dose Admin Famotidine (Pepcid Tab) 20 mg NOW STAT PO 08/25/17 22:28 08/25/17 22:29 DC 08/25/17 22:48 20 MG Sucralfate (Carafate Tab) 1 gm NOW STAT PO 08/25/17 22:28 08/25/17 22:30 DC 08/25/17 22:48 1 GM Al Hydroxide/Mg Hydroxide (Maalox Susp) 30 ml STK-MED ONCE .ROUTE 08/25/17 22:47 08/25/17 22:48 DC 08/25/17 22:49 30 ML Lidocaine HCl (Viscous Lidocaine 2% Soln) 20 ml STK-MED ONCE .ROUTE 08/25/17 22:47 08/25/17 22:48 DC 08/25/17 22:49 20 ML Magnesium Citrate (Citrate Of Magnesia Soln) 296 ml NOW STAT PO 08/25/17 23:46 08/25/17 23:47 DC 08/26/17 00:02 296 ML ED Course 2227: Past medical records reviewed. The patient was evaluated in room A12B. A complete history and physical examination was performed. 2228: Sucralfate 1 gm PO, Famotidine 20 mg PO. 2247: Lidocaine HCl 20 ml PO, Maalox Susp 30 ml PO. 2342: Upon reexamination the patient is resting comfortably. I discussed results and treatment plan with the patient. She verbalizes agreement and understanding. The patient is ready for discharge. 2346: Magnesium Citrate 296 ml PO. Medical Decision Differential diagnosis: Etiologies such as appendicitis, diverticulitis, PUD, biliary pathology, UTI, pancreatitis, obstruction, mesenteric ischemia, aortic pathology, infections, inflammatory bowel disease, renal colic, as well as others were entertained. This is a 57-year-old female who presents emergency department complaining of abdominal pain. The patient has a soft benign nontender examination. Serial abdominal examinations were performed on the patient in the emergency department and no tended patient exhibit abdominal tenderness or surgical abdomen. The patient was given a GI cocktail Pepcid and Carafate for the pain. Repeat examination revealed improvement the patient's symptoms. The patient does appear to be constipated and I'll place her on magnesium citrate at home. Patient was in agreement with the treatment plan. Medication Reconcilliation Current Medication List: was personally reviewed by me Blood Pressure Screening Patient's blood pressure: Elevated blood pressure Blood pressure disposition: Referred to PCP Impression Primary Impression: Abdominal pain Additional Impression: Constipation Scribe Attestation The scribe's documentation has been prepared under my direction and personally reviewed by me in its entirety. I confirm that the note above accurately reflects all work, treatment, procedures, and medical decision making performed by me. Departure Information Dispostion Home / Self-Care Referrals Cipriano Peña M.D. (MEDICAL) (PCP) Forms Call Back Authorization, HOME CARE DOCUMENTATION FORM, IMPORTANT VISIT INFORMATION Patient Instructions Abdominal Pain - [facility], ED Constipation, My [facility] Additional Instructions Take 1/2 bottle of Mag Citrate Repeat second 1/2 in six hours You were found to have an elevated blood pressure today (>120 sytolic or >90 diastolic). Per medicare guidelines, you need to follow up with this blood pressure screening with your Primary Care Physician (PCP). For a new PCP call [phone]. Radiographs and CTs will be reread by a radiologist in the morning. You have been examined and treated today on an emergency basis only. This is not a substitute for, or an effort to provide, complete comprehensive medical care. It is impossible to recognize and treat all injuries or illnesses in a single emergency department visit. It is therefore important that you follow up closely with Dr Peña. Call as soon as possible for an appointment. Thank you for your time and consideration. I look forward to speaking with you again soon. Please don't hesitate to call us if you have any questions. Problem Qualifiers Primary Impression: Abdominal pain Abdominal location: epigastric Qualified Codes: R10.13 - Epigastric pain Additional Impression: Constipation Constipation type: unspecified constipation type Qualified Codes: K59.00 - Constipation, unspecified
[2017-08-25 23:16] LABS: BASO % 0.2 %; BASO ABS # 0.03 K/uL (0-0.2); COMPLETE YES; EOS % 2.1 %; HEMATOCRIT 36.3 % (37-47); IG% 0.2 %; LYMPH % 36.9 %; LYMPH ABS # 4.61 K/uL (1.2-3.4); MEAN CELL VOLUME 83.6 fL (80-100); MEAN CORPUSCULAR HEMOGLOBIN 28.6 pg (25-34); MEAN CORPUSCULAR HGB CONC 34.2 g/dl (32-36); MEAN PLATELET VOLUME 9.1 fL (7.4-10.4); MONO % 7.1 %; NEUT % 53.5 %; PLATELET COUNT 359 K/uL (130-400); RED BLOOD COUNT 4.34 M/uL (4.2-5.4); WHITE BLOOD COUNT 12.51 K/uL (4.8-10.8)
[2017-08-25 23:30] LABS: ALT/SGPT 42 U/L (12-78); BLOOD UREA NITROGEN 13 mg/dl (7-18); BUN/CREATININE RATIO 18.1 (10-20); CALCIUM 8.9 mg/dl (8.5-10.1); CARBON DIOXIDE 25 mmol/L (21-32); CHLORIDE 105 mmol/L (98-107); CREATININE 0.72 mg/dl (0.60-1.20); GLUCOSE 149 mg/dl (70-99); POTASSIUM 3.3 mmol/L (3.5-5.1); SODIUM 137 mmol/L (136-145)
[2017-08-25 23:33] LABS: ALKALINE PHOSPHATASE 149 U/L (45-117); AST/SGOT 16 U/L (15-37)
[2017-08-25 23:34] LABS: URINE APPEARANCE CLEAR (CLEAR); URINE BILIRUBIN NEG (NEG); URINE COLOR YELLOW; URINE EPITHELIAL CELL AUTO 0-5 /lpf (0-5); URINE NITRITE NEG (NEG); URINE PH 5.5 (4.5-7.5); URINE SPECIFIC GRAVITY 1.012 (1.000-1.030); UROBILINOGEN NEG (NEG)
[2017-08-25 23:41] LABS: MANUAL MICROSCOPIC REQUIRED? NO; REVIEW REQ? NO
[2017-08-25] MEDS ORDERED: MAGNESIUM CITRATE 296 ML/BTL PO STA (23:46)
[2017-08-26 00:02] VITALS: BP 126/79; PULSE 87; O2SAT 94
--- NOTE | 2017-08-26 07:10 | DIAGNOSTIC IMAGING REPORT ---
CHEST AND ABDOMEN 2 VIEWS HISTORY: Pt c/o epigastric pain COMPARISON: Chest 07/20/2017. Chest and abdominal series 05/23/2017. FINDINGS: Punctate density within the periphery the right midlung zone may be due to the overlapping rib are calcified granuloma. The lungs are otherwise clear. The heart is normal in size. No pneumoperitoneum. No pneumatosis. Moderate well-formed stool seen throughout the colon. No dilated loops of bowel to suggest an obstruction. Stable calcifications within the pelvis which likely represent phleboliths. No definite renal or ureteral calculi. IMPRESSION: No acute cardiopulmonary process. No evidence for bowel obstruction. Moderate well-formed stool seen throughout the colon. Electronically signed by: Reg Anderson M.D. 08/26/2017 7:09 AM Dictated Date/Time: 08/26/2017 7:07 AM
[2017-09-08] MEDS ORDERED: DTR/5 PO (14:15)
[2017-09-08] MEDS ORDERED: PROM25TA16 PO (14:59)
[2017-09-08] MEDS ORDERED: POTA1TAB PO (15:03)
[2017-09-08] MEDS ORDERED: ASPI1TAB83 PO (15:29)
[2017-09-08] MEDS ORDERED: MULT-506 PO (15:53)
[2017-09-08] MEDS ORDERED: MRLP527 PO (15:56)
[2017-09-08] MEDS ORDERED: RANI150T2 PO (15:56)
[2017-09-08] MEDS ORDERED: CYM60 PO (15:56)
[2017-09-08] MEDS ORDERED: SUCR1TAB PO (15:56)
[2017-09-08] MEDS ORDERED: ADVIN50/60 INH (16:10)
[2017-09-08] MEDS ORDERED: BUSP5TAB59 PO (16:26)
[2017-09-08] MEDS ORDERED: GLC500 PO (16:26)
[2017-09-08] MEDS ORDERED: ESTCR PV (18:18)
== END 2017-08-26 00:06 | disposition home or self-care (01) ==
LOC: C.EDB 21:11 → C.EDA 08-26 00:06
DX: R10.9 Unspecified abdominal pain (principal); K59.00 Constipation, unspecified; E11.9 Type 2 diabetes mellitus without complications; K31.84 Gastroparesis; K21.9 Gastro-esophageal reflux disease without esophagitis; K58.9 Irritable bowel syndrome, unspecified; F41.8 Other specified anxiety disorders; J45.40 Moderate persistent asthma, uncomplicated; Z90.710 Acquired absence of both cervix and uterus; Z98.51 Tubal ligation status; Z98.890 Other specified postprocedural states; Z87.891 Personal history of nicotine dependence; Z79.4 Long term (current) use of insulin; Z79.82 Long term (current) use of aspirin; Z79.84 Long term (current) use of oral hypoglycemic drugs; Z79.899 Other long term (current) drug therapy; Z88.2 Allergy status to sulfonamides; Z88.8 Allergy status to other drugs, medicaments and biological substances; Z91.040 Latex allergy status

== ENCOUNTER 2017-09-08 19:12 | Emergency (ER) | payer OTHER ==
[~2017-09-08] VITALS: Ht 154.9 cm; Wt 98.5 kg
[~2017-09-08 19:12] MED LIST changes: +ADVIN50/60 INH; +ASPI1TAB83 PO; +BUSP5TAB59 PO; +CYM60 PO; +DTR/5 PO; +ESTCR PV; +GLC500 PO; +MRLP527 PO; +MULT-506 PO; +POTA1TAB PO; +PROM25TA16 PO; +RANI150T2 PO; +SUCR1TAB PO
[2017-09-08] MEDS ORDERED: MELA1CAP9 PO (19:14)
[2017-09-08] MEDS ORDERED: HYDR1CAP85 PO (19:14)
[2017-09-08] MEDS ORDERED: SNG10 PO (19:14)
[2017-09-08 19:17] VITALS: TEMP 36.8; Ht 154.9 cm; Wt 98.5 kg
[2017-09-08] MEDS ORDERED: VLT500 PO (19:28)
[2017-09-08] MEDS ORDERED: DOXY100C2 PO (19:56)
[2017-09-08] MEDS ORDERED: ESOM1CAP34 PO (19:56)
[2017-09-08] MEDS ORDERED: NRN100 PO (19:56)
[2017-09-08] MEDS ORDERED: SENN-65 PO (20:07)
[2017-09-08] MEDS ORDERED: PROCHLORPERAZINE 5 MG/ML 2 ML VIAL IV STA (20:14)
[2017-09-08] MEDS ORDERED: KETOROLAC TROMETHAMINE 30 MG/ML VIAL IV STA (20:14)
--- NOTE | 2017-09-08 20:50 | EMERGENCY ROOM VISIT NOTE ---
History First contact with patient: 19:53 Chief Complaint: FLANK PAIN Stated Complaint: PAIN IN RT SIDE History of Present Illness The patient is a 57 year old female who presents to the Emergency Room with complaints of sudden onset of right upper abdominal pain radiating to her back that occurred earlier this morning. The pain is a sharp, stabbing sensation that is constant. No exacerbating or alleviating factors. She has had nausea without vomiting. Denies urinary symptoms. No chest pain or shortness of breath. She has tried Tylenol with minimal relief the pain. Review of Systems 10 system review performed and negative unless noted in HPI or below Past Medical/Surgical History Medical Problems: (1) Abdominal pain (2) Cervicalgia (3) Depression with anxiety (4) DM type 2 (diabetes mellitus, type 2) (5) Gastroparesis (6) GERD (gastroesophageal reflux disease) (7) IBS (irritable bowel syndrome) (8) Moderate persistent asthma (9) Obesity Surgical Problems: (1) H/O dilation and curettage (2) H/O: hysterectomy (3) History of tonsillectomy and adenoidectomy (4) History of tubal ligation Social History Problems: (1) Herpes simplex Family History FH: cancer FATHER Heart disease Social History Smoking Status: Never Smoker Alcohol Use: none Drug Use: none Housing Status: lives with significant other Occupation Status: employed Current/Historical Medications Scheduled Amitriptyline HCl (Amitriptyline HCl), 100 MG PO HS Aspirin (Aspirin), 81 MG PO DAILY Atorvastatin (Lipitor), 80 MG PO HS Buspirone Hcl (Buspirone Hcl), 5 MG PO BID Doxycycline Hyclate (Vibramycin), 100 MG PO BID Duloxetine HCl (Duloxetine HCl), 60 MG PO DAILY Esomeprazole Magnesium (Esomeprazole Magnesium), 40 MG PO QAM Estradiol Vaginal (Estrace), 1 APPLN PV 2XWK Ferrous Sulfate (Ferrous Sulfate), 325 MG PO TIDM Fluticasone Prop/Salmeterol (Advair Diskus 500/50 60 Dose), 1 PUFF INH BID Fluticasone Propionate (Fluticasone Propionate), 1 SPRAY JG BID Gabapentin (Gabapentin), 200 MG PO HS Hydroxyzine Pamoate (Vistaril), 25 MG PO BID Insulin Glargine (Lantus Solostar), 5 UNITS SC HS Lisinopril (Lisinopril), 2.5 MG PO DAILY Metformin HCl (Metformin HCl), 500 MG PO BIDM Metoclopramide Hcl (Reglan), 10 MG PO ACHS Mirabegron (Myrbetriq Er), 25 MG PO QAM Montelukast Sod (Montelukast Sodium), 10 MG PO DAILY Multivitamin (Multivitamin), 1 TAB PO DAILY Oxybutynin Chloride (Ditropan), 10 MG PO DAILY Polyethylene (Polyethylene Glycol 3350), 17 GM PO QAM Potassium Gluconate (Potassium Gluconate), 1,190 MG PO DAILY Ranitidine HCl (Ranitidine HCl), 150 MG PO HS Senna/Docusate Sod (Senokot S), 1 TAB PO QAM Scheduled PRN Dicyclomine Hcl (Dicyclomine Hcl), 10 MG PO QID PRN for Moderate Pain Ipratropium-Albuterol (Duoneb), 1 TREATMENT INH QID PRN for SOB/Wheezing Melatonin (Melatonin), 10 MG PO HS PRN for Sleep Promethazine HCl (Promethazine HCl), 25 MG PO Q6H PRN for Nausea Sucralfate (Sucralfate), 1 GM PO ACHS PRN for Stomach Pain Valacyclovir HCl (Valacyclovir HCl), 500 MG PO TID PRN for Outbreaks Physical Exam Vital Signs Date Time Temp Pulse Resp B/P (MAP) Pulse Ox O2 Delivery O2 Flow Rate FiO2 09/08/17 22:54 85 18 123/84 96 Room Air 09/08/17 22:29 82 15 117/54 95 Room Air 09/08/17 21:13 85 16 113/63 95 Room Air 09/08/17 19:17 36.8 95 18 108/76 96 Room Air Physical Exam VITALS: Vitals are noted on the nurse's note and reviewed by myself. Vital signs stable. GENERAL: 57-year-old female, in no acute distress, nondiaphoretic, well- developed well-nourished. SKIN: The skin was without rashes, erythema, edema, or bruising. HEAD: Normocephalic atraumatic. MOUTH: Mucous membranes moist. NECK: . No JVD. HEART: Regular rate and rhythm without murmurs gallops or rubs. LUNGS: Clear to auscultation bilaterally without wheezes, rales or rhonchi. No accessory muscle use. ABDOMEN: Positive bowel sounds x 4.Soft,, without organomegaly. No guarding or rebound tenderness. Questionable right-sided CVA tenderness. MUSCULOSKELETAL: No muscle atrophy, erythema, or edema noted. Strength 5/5 throughout. NEURO: Patient was alert and oriented to person place and time. Normal sensation to touch. No focal neurological deficits. Medical Decision & Procedures ER Provider Diagnostic Interpretation: CT abdomen/pelvis with contrast IMPRESSION: 1. No acute intra-abdominal pathology. Electronically signed by: Jareth Guerra M.D. 09/08/2017 10:29 PM Dictated Date/Time: 09/08/2017 10:21 PM The status of this report is Signed. Draft = Not yet reviewed or approved by Radiologist. Signed = Reviewed and approved by Radiologist. Laboratory Results 09/08/17 20:45 Red Blood Count 4.52, Mean Corpuscular Volume 84.5, Mean Corpuscular Hemoglobin 28.8, Mean Corpuscular Hemoglobin Concent 34.0, Mean Platelet Volume 8.9, Neutrophils (%) (Auto) 50.6, Lymphocytes (%) (Auto) 39.7, Monocytes (%) (Auto) 6.4, Eosinophils (%) (Auto) 2.7, Basophils (%) (Auto) 0.3, Neutrophils # (Auto) 6.06, Lymphocytes # (Auto) 4.74, Monocytes # (Auto) 0.76, Eosinophils # (Auto) 0.32, Basophils # (Auto) 0.03 09/08/17 20:45 Test 09/08/17 19:50 09/08/17 20:45 Urine Color YELLOW Urine Appearance CLEAR (CLEAR) Urine pH 5.5 (4.5-7.5) Urine Specific [place] 1.008 (1.000-1.030) Urine Protein NEG (NEG) Urine Glucose (UA) NEG (NEG) Urine Ketones NEG (NEG) Urine Occult Blood NEG (NEG) Urine Nitrite NEG (NEG) Urine Bilirubin NEG (NEG) Urine Urobilinogen NEG (NEG) Urine Leukocyte Esterase SMALL (NEG) Urine WBC (Auto) 1-5 /hpf (0-5) Urine RBC (Auto) 0-4 /hpf (0-4) Urine Hyaline Casts (Auto) 0 /lpf (0-5) Urine Epithelial Cells (Auto) 10-20 /lpf (0-5) Urine Bacteria (Auto) NEG (NEG) White Blood Count 11.94 K/uL (4.8-10.8) Red Blood Count 4.52 M/uL (4.2-5.4) Hemoglobin 13.0 g/dL (12.0-16.0) Hematocrit 38.2 % (37-47) Mean Corpuscular Volume 84.5 fL (80-100) Mean Corpuscular Hemoglobin 28.8 pg (25-34) Mean Corpuscular Hemoglobin Concent 34.0 g/dl (32-36) Platelet Count 341 K/uL (130-400) Mean Platelet Volume 8.9 fL (7.4-10.4) Neutrophils (%) (Auto) 50.6 % Lymphocytes (%) (Auto) 39.7 % Monocytes (%) (Auto) 6.4 % Eosinophils (%) (Auto) 2.7 % Basophils (%) (Auto) 0.3 % Neutrophils # (Auto) 6.06 K/uL (1.4-6.5) Lymphocytes # (Auto) 4.74 K/uL (1.2-3.4) Monocytes # (Auto) 0.76 K/uL (0.11-0.59) Eosinophils # (Auto) 0.32 K/uL (0-0.5) Basophils # (Auto) 0.03 K/uL (0-0.2) RDW Standard Deviation 43.0 fL (36.4-46.3) RDW Coefficient of Variation 13.9 % (11.5-14.5) Immature Granulocyte % (Auto) 0.3 % Immature Granulocyte # (Auto) 0.03 K/uL (0.00-0.02) Anion Gap 9.0 mmol/L (3-11) Est Creatinine Clear Calc Drug Dose 81.4 ml/min Estimated GFR () 93.5 Estimated GFR (Non- 80.7 BUN/Creatinine Ratio 12.5 (10-20) Calcium Level 9.0 mg/dl (8.5-10.1) Total Bilirubin 0.3 mg/dl (0.2-1) Aspartate Amino Transf (AST/SGOT) 26 U/L (15-37) Alanine Aminotransferase (ALT/SGPT) 55 U/L (12-78) Alkaline Phosphatase 162 U/L (45-117) Total Protein 7.0 gm/dl (6.4-8.2) Albumin 3.4 gm/dl (3.4-5.0) Globulin 3.6 gm/dl (2.5-4.0) Albumin/Globulin Ratio 0.9 (0.9-2) Lipase 244 U/L (73-393) Medications Administered Medications (Trade) Dose Ordered Sig/Antony Route Start Time Stop Time Status Last Admin Dose Admin Ketorolac Tromethamine (Toradol Inj) 30 mg NOW STAT IV 09/08/17 20:14 09/08/17 20:16 DC 09/08/17 21:14 30 MG Prochlorperazine Edisylate (Compazine Inj) 5 mg NOW STAT IV 09/08/17 20:14 09/08/17 20:16 DC 09/08/17 21:14 5 MG Morphine Sulfate (MoRPHine SULFATE INJ) 6 mg NOW STAT IM 09/08/17 22:45 09/08/17 22:46 DC 09/08/17 22:52 6 MG ED Course Patient was seen and examined Vital signs including blood pressure were reviewed medications list was verified with patient Labs were obtained, and a saline lock was established The patient was given Toradol 30 mg IV for pain Imaging was performed. The patient was reassessed. She was still complaining of 7/10 pain. She was ordered 1 dose of morphine 4 mg IV. We discussed the results of her workup. She voiced understanding. I reviewed discharge instructions the patient. They voiced understanding and had no further questions. Medical Decision DIFFERENTIAL DIAGNOSIS: Gastroenteritis, Hepatitis, cholecystitis, cholangitis, biliary colic, pancreatitis, appendicitis, inguinal hernia, nephrolithiasis, inflammatory bowel disease, mesenteric adenitis, peptic ulcer disease, GERD, gastritis, pancreatitis,, bowel obstruction, splenic infarct, diverticulitis, mesenteric ischemia, metabolic, peritonitis, among others. This patient is a 57-year-old female that presents emergency department with complaints of right upper abdominal/flank pain that started this morning. She also complains of nausea. On exam, she is nontoxic in appearance. She is afebrile. Her labs reveal a mild leukocytosis, which prompted me to do a CT of the abdomen and pelvis. No acute abnormalities were noted. There are no signs of urinary tract infection. The patient is listed as a 2 shot per month treatment plan. She was given 1 dose of morphine 6 mg IV. She was informed that this will count as one of her narcotic visits. She is in agreement with this plan. I advised the patient that if the pain persists, she should follow- up with her primary care physician. If any symptoms get worse, she agrees to return to the emergency department This chart was completed in part utilizing [employer] Speech Voice Recognition software. Attempts were made to minimize the grammatical errors, random word insertions, pronoun errors and incomplete sentences. Any formal questions or concerns about the content, text or information contained within the body of this dictation should be directly addressed to the provider for clarification. Medication Reconcilliation Current Medication List: was personally reviewed by me Blood Pressure Screening Patient's blood pressure: Normal blood pressure Impression Primary Impression: Right flank pain Departure Information Dispostion Home / Self-Care Condition GOOD Referrals Cipriano Peña M.D. (MEDICAL) (PCP) Patient Instructions My [facility] Additional Instructions You were evaluated in the emergency department for abdominal pain and flank pain. A CAT scan was done and did not show any acute abnormalities. Please continue your medications as prescribed. Please follow-up with her primary care physician within the next 2-3 days for recheck Please return to the emergency department with any new or worsening symptoms
[2017-09-08] MEDS ORDERED: FLNIN/ NAE (20:57)
[2017-09-08] MEDS ORDERED: METO-157 PO (21:00)
[2017-09-08 21:08] LABS: BASO % 0.3 %; BASO ABS # 0.03 K/uL (0-0.2); COMPLETE YES; EOS % 2.7 %; HEMATOCRIT 38.2 % (37-47); IG% 0.3 %; LYMPH % 39.7 %; LYMPH ABS # 4.74 K/uL (1.2-3.4); MEAN CELL VOLUME 84.5 fL (80-100); MEAN CORPUSCULAR HEMOGLOBIN 28.8 pg (25-34); MEAN PLATELET VOLUME 8.9 fL (7.4-10.4); MONO % 6.4 %; NEUT % 50.6 %; PLATELET COUNT 341 K/uL (130-400); RED BLOOD COUNT 4.52 M/uL (4.2-5.4); WHITE BLOOD COUNT 11.94 K/uL (4.8-10.8)
[2017-09-08 21:11] LABS: URINE APPEARANCE CLEAR (CLEAR); URINE BILIRUBIN NEG (NEG); URINE COLOR YELLOW; URINE NITRITE NEG (NEG); URINE PH 5.5 (4.5-7.5); URINE SPECIFIC GRAVITY 1.008 (1.000-1.030); UROBILINOGEN NEG (NEG)
[2017-09-08] MEDS ORDERED: ATOR-26 PO (21:11)
[2017-09-08 21:18] LABS: MANUAL MICROSCOPIC REQUIRED? NO; REVIEW REQ? NO
[2017-09-08 21:31] LABS: BUN/CREATININE RATIO 12.5 (10-20); CREATININE 0.8 mg/dl (0.60-1.20); POTASSIUM 3.9 mmol/L (3.5-5.1)
[2017-09-08 21:34] LABS: ALB/GLOB RATIO 0.9 (0.9-2)
[2017-09-08] MEDS ORDERED: DICY10CA12 PO (21:39)
[2017-09-08] MEDS ORDERED: LSN25 PO (21:39)
[2017-09-08] MEDS ORDERED: FERR1TAB62 PO (21:44)
[2017-09-08] MEDS ORDERED: AMT100 PO (21:46)
[2017-09-08] MEDS ORDERED: MIRA100T PO (21:50)
[2017-09-08] MEDS ORDERED: OPTIRAY 320 IV PRN (22:00)
[2017-09-08] MEDS ORDERED: INSDGIPEN SC (22:29)
--- NOTE | 2017-09-08 22:30 | DIAGNOSTIC IMAGING REPORT ---
ABD/PELVIS IV CONTRAST ONLY CLINICAL HISTORY: 57 years-old Female presenting with right upper quadrant pain radiating to back. TECHNIQUE: Multidetector CT of the abdomen and pelvis was performed after the administration of intravenous contrast. IV contrast: 92 mL of Optiray 320. A dose lowering technique was used consistent with the principles of ALARA (as low as reasonably achievable). COMPARISON: 05/24/2017. CT DOSE (mGy.cm): The estimated cumulative dose is 1266.00 mGy.cm. FINDINGS: Records Management Clerk topogram: Unremarkable. Lung bases: Lung bases clear. Mild aortic valve and coronary artery calcification. Normal heart size. No pericardial or pleural effusion. Liver: Normal morphology. No liver lesion. Patent hepatic vasculature. Biliary: No intrahepatic or extrahepatic biliary ductal dilatation. Normal gallbladder. Pancreas: Mild parenchymal atrophy. Spleen: Normal. Adrenal glands: Normal. Kidneys and ureters: Well-defined hypodensity in the left kidney consistent with simple cyst. No hydronephrosis. No nephrolithiasis. Bladder: Normal. Pelvic organs: Uterus surgically absent. No adnexal masses. Bowel: Mild stool burden throughout normal caliber colon. Normal appendix. No bowel obstruction. Peritoneal cavity: Focal fat with a soft tissue rim immediately superior to the bladder without associated fat stranding likely represents prior epiploic appendagitis or omental infarct. This is unchanged from prior exam. No free fluid or gas. Lymph nodes: No enlarged lymph nodes in the abdomen or pelvis. Vasculature: Atherosclerosis of the normal caliber abdominal aorta. IVC patent. Abdominal wall: Normal. Musculoskeletal: Normal. IMPRESSION: 1. No acute intra-abdominal pathology. Electronically signed by: Jareth Guerra M.D. 09/08/2017 10:29 PM Dictated Date/Time: 09/08/2017 10:21 PM
[2017-09-08] MEDS ORDERED: IPRASOL4 INH (22:43)
[2017-09-08] MEDS ORDERED: MoRPHine SULFATE 10 MG/ML CARP/VIAL IM STA (22:45)
[2017-09-08 22:54] VITALS: BP 123/84; PULSE 85; O2SAT 96
== END 2017-09-08 23:03 | disposition home or self-care (01) ==
LOC: C.EDB 19:13
DX: R10.9 Unspecified abdominal pain (principal); F32.9 Major depressive disorder, single episode, unspecified; F41.9 Anxiety disorder, unspecified; E11.9 Type 2 diabetes mellitus without complications; K31.84 Gastroparesis; K21.9 Gastro-esophageal reflux disease without esophagitis; J45.909 Unspecified asthma, uncomplicated; E66.9 Obesity, unspecified; Z80.9 Family history of malignant neoplasm, unspecified; Z82.49 Family history of ischemic heart disease and other diseases of the circulatory system; Z79.82 Long term (current) use of aspirin; Z79.899 Other long term (current) drug therapy

== ENCOUNTER 2017-09-18 18:58 | Emergency (ER) | payer OTHER ==
[~2017-09-18] VITALS: Ht 154.9 cm; Wt 98.8 kg
[~2017-09-18 18:58] MED LIST changes: +DOXY100C2 PO; -ESOM20GR PO
[2017-09-18 19:04] VITALS: TEMP 36.7; Ht 154.9 cm; Wt 98.8 kg
[2017-09-18 19:13] VITALS: O2SAT 96
[2017-09-18] MEDS ORDERED: MELA1CAP9 PO (19:14)
[2017-09-18] MEDS ORDERED: HYDR1CAP85 PO (19:14)
[2017-09-18] MEDS ORDERED: SNG10 PO (19:14)
[2017-09-18] MEDS ORDERED: KETOROLAC TROMETHAMINE 30 MG/ML VIAL IV STA (19:21)
[2017-09-18] MEDS ORDERED: DiphenhydrAMINE HCL 50 MG/ML VIAL IV STA (19:21)
[2017-09-18] MEDS ORDERED: PROCHLORPERAZINE 5 MG/ML 2 ML VIAL IV STA (19:21)
[2017-09-18] MEDS ORDERED: VLT500 PO (19:28)
--- NOTE | 2017-09-18 19:28 | EMERGENCY ROOM VISIT NOTE ---
History Report prepared by Tamera: Stoney Trent Under the Supervision of: Dr. Alfonso Recio M.D. First contact with patient: 19:16 Chief Complaint: CHEST PAIN Stated Complaint: CHEST PAIN Nursing Triage Summary: pt reports cp that started about 1800 radiates into back took asa 81mg History of Present Illness The patient is a 57 year old female who presents to the Emergency Room with complaints of constant sharp chest pain beginning an hour ago. The patient states that she was cooking dinner tonight, when she began to experience chest pain in the center of her chest that radiates to her back. She rates her chest pain as a 9/10 and notes that she almost doubled over in pain. She reports that she took a baby aspirin with no relief to her symptoms. The patient states that her symptoms worsen with movement. She notes that she has had similar chest pain in the past that is usually chest wall pain. She denies ever having a heart attack. She reports that she hit her head on her headboard 2 days ago and believes that she gave herself a concussion but did not hurt her chest. She also complains of a hard cough, chills, and a headache, but denies any fever and rash. Source of History: patient Onset: an hour ago Position: chest Symptom Intensity: 9/10 Quality: sharp Timing: constant Modifying Factors (Worsening): movement Associated Symptoms: + chills, + headache, + cough (hard), No fevers, No rash Review of Systems See HPI for pertinent positives & negatives. A total of 10 systems reviewed and were otherwise negative. Past Medical & Surgical Medical Problems: (1) Abdominal pain (2) Cervicalgia (3) Depression with anxiety (4) DM type 2 (diabetes mellitus, type 2) (5) Gastroparesis (6) GERD (gastroesophageal reflux disease) (7) IBS (irritable bowel syndrome) (8) Moderate persistent asthma (9) Obesity Surgical Problems: (1) H/O dilation and curettage (2) H/O: hysterectomy (3) History of tonsillectomy and adenoidectomy (4) History of tubal ligation Social History Problems: (1) Herpes simplex Family History FH: cancer FATHER Heart disease Social History Smoking Status: Never Smoker Alcohol Use: none Drug Use: none Housing Status: lives with significant other Occupation Status: employed Current/Historical Medications Scheduled Amitriptyline HCl (Amitriptyline HCl), 100 MG PO HS Aspirin (Aspirin), 81 MG PO DAILY Atorvastatin (Lipitor), 80 MG PO HS Buspirone Hcl (Buspirone Hcl), 5 MG PO BID Duloxetine HCl (Duloxetine HCl), 60 MG PO DAILY Esomeprazole Magnesium (Esomeprazole Magnesium), 40 MG PO QAM Estradiol Vaginal (Estrace), 1 APPLN PV 2XWK Ferrous Sulfate (Ferrous Sulfate), 325 MG PO TIDM Fluticasone Prop/Salmeterol (Advair Diskus 500/50 60 Dose), 1 PUFF INH BID Fluticasone Propionate (Fluticasone Propionate), 1 SPRAY JG BID Gabapentin (Gabapentin), 200 MG PO HS Hydroxyzine Pamoate (Vistaril), 25 MG PO BID Insulin Glargine (Lantus Solostar), 5 UNITS SC HS Lisinopril (Lisinopril), 2.5 MG PO DAILY Metformin HCl (Metformin HCl), 500 MG PO BIDM Metoclopramide Hcl (Reglan), 10 MG PO ACHS Mirabegron (Myrbetriq Er), 25 MG PO QAM Montelukast Sod (Montelukast Sodium), 10 MG PO DAILY Multivitamin (Multivitamin), 1 TAB PO DAILY Oxybutynin Chloride (Ditropan), 10 MG PO DAILY Polyethylene (Polyethylene Glycol 3350), 17 GM PO QAM Potassium Gluconate (Potassium Gluconate), 1,190 MG PO DAILY Ranitidine HCl (Ranitidine HCl), 150 MG PO HS Senna/Docusate Sod (Senokot S), 1 TAB PO QAM Scheduled PRN Dicyclomine Hcl (Dicyclomine Hcl), 10 MG PO QID PRN for Moderate Pain Ipratropium-Albuterol (Duoneb), 1 TREATMENT INH QID PRN for SOB/Wheezing Melatonin (Melatonin), 10 MG PO HS PRN for Sleep Promethazine HCl (Promethazine HCl), 25 MG PO Q6H PRN for Nausea Sucralfate (Sucralfate), 1 GM PO ACHS PRN for Stomach Pain Valacyclovir HCl (Valacyclovir HCl), 500 MG PO TID PRN for Outbreaks Allergies Coded Allergies: Hydromorphone (Verified Allergy, Severe, itching, 07/20/17) Ondansetron (Verified Allergy, Intermediate, hives; RASH, 07/20/17) Sulfa Antibiotics (Verified Allergy, Intermediate, rash, 07/20/17) Aminoglycosides (Verified Allergy, Unknown, >, 07/20/17) Bacitracin (Verified Allergy, Unknown, >, 07/20/17) Ceftriaxone (Verified Allergy, Unknown, Rash, hives and itchiness., ) Cephalexin (Verified Allergy, Unknown, hives, 07/20/17) Latex1 -Allergic Contact Dermititis (Verified Allergy, Unknown, 07/20/17) Neomycin (Verified Allergy, Unknown, >, 07/20/17) Polymyxin B (Verified Allergy, Unknown, >, 07/20/17) Sulfamethoxazole w/Trimethoprim (Verified Allergy, Unknown, Unknown, ) Physical Exam Vital Signs Date Time Temp Pulse Resp B/P (MAP) Pulse Ox O2 Delivery O2 Flow Rate FiO2 09/18/17 22:04 94 18 131/86 96 09/18/17 20:30 94 09/18/17 19:24 96 Room Air 09/18/17 19:13 96 Room Air 09/18/17 19:04 36.7 91 20 144/85 96 Room Air Physical Exam GENERAL: Patient is in no acute distress. HEENT: No acute trauma, normocephalic atraumatic, mucous membranes moist, no nasal congestion, no scleral icterus. NECK: No stridor, no adenopathy, no meningismus, trachea is midline. LUNGS: Clear to auscultation bilaterally, no wheeze, no rhonchi, breath sounds equal. HEART: Without murmurs gallops or rubs, regular rate and rhythm. CHEST: Tender to left anterior chest wall just medial to the breast. ABDOMEN: Soft, nontender, bowel sounds positive, no hernias, no peritonitis. EXTREMITIES: No cyanosis or edema, full range of motion of all the joints without pain or difficulty, no signs for acute trauma. NEUROLOGIC: Oriented x 3, no acute motor or sensory deficits, no focal weakness. SKIN: No rash, no jaundice, no diaphoresis. Medical Decision & Procedures ER Provider Diagnostic Interpretation: Radiology results as stated below per my review and radiologist interpretation: CHEST ONE VIEW PORTABLE FINDINGS: Persistent left deviation of the upper trachea. 5 mm density within the right anterior third rib remains stable. The lungs are clear. The heart is normal in size. No pleural effusions. No pneumothorax. IMPRESSION: No significant change compared to the prior study. No acute process. Electronically signed by: Reg Anderson M.D. 09/18/2017 8:21 PM Laboratory Results 09/18/17 19:35 09/18/17 19:35 Test 09/18/17 19:35 09/18/17 21:28 Red Blood Count 4.61 M/uL (4.2-5.4) Mean Corpuscular Volume 84.6 fL (80-100) Mean Corpuscular Hemoglobin 29.1 pg (25-34) Mean Corpuscular Hemoglobin Concent 34.4 g/dl (32-36) RDW Standard Deviation 42.4 fL (36.4-46.3) RDW Coefficient of Variation 13.7 % (11.5-14.5) Mean Platelet Volume 9.3 fL (7.4-10.4) Prothrombin Time 10.0 SECONDS (9.0-12.0) Prothromb Time International Ratio 0.9 (0.9-1.1) Activated Partial Thromboplast Time 24.3 SECONDS (21.0-31.0) Partial Thromboplastin Ratio 0.9 Anion Gap 10.0 mmol/L (3-11) Est Creatinine Clear Calc Drug Dose 66.5 ml/min Estimated GFR () 73.2 Estimated GFR (Non- 63.1 BUN/Creatinine Ratio 14.9 (10-20) Calcium Level 9.5 mg/dl (8.5-10.1) Total Bilirubin 0.3 mg/dl (0.2-1) Aspartate Amino Transf (AST/SGOT) 22 U/L (15-37) Alanine Aminotransferase (ALT/SGPT) 54 U/L (12-78) Alkaline Phosphatase 166 U/L (45-117) Total Protein 7.2 gm/dl (6.4-8.2) Albumin 3.6 gm/dl (3.4-5.0) Globulin 3.6 gm/dl (2.5-4.0) Albumin/Globulin Ratio 1.0 (0.9-2) Lipase 280 U/L (73-393) Bedside Troponin I < 0.030 ng/ml (0-0.045) Laboratory results reviewed by me. Medications Administered Medications (Trade) Dose Ordered Sig/Antony Route Start Time Stop Time Status Last Admin Dose Admin Ketorolac Tromethamine (Toradol Inj) 30 mg NOW STAT IV 09/18/17 19:21 09/18/17 19:36 DC 09/18/17 19:38 30 MG Prochlorperazine Edisylate (Compazine Inj) 10 mg NOW STAT IV 09/18/17 19:21 09/18/17 19:36 DC 09/18/17 19:37 10 MG Diphenhydramine HCl (Benadryl Inj) 50 mg NOW STAT IV 09/18/17 19:21 09/18/17 19:36 DC 09/18/17 19:37 50 MG ECG Indication: chest pain Rate (beats per minute): 88 Rhythm: normal sinus Findings: no acute ischemic change, no ectopy ED Course 1916: The patient was evaluated in room B12. A complete history and physical exam was performed. 1920: Benadryl Inj 50mg IV, Compazine Inj 10mg IV, Toradol Inj 30mg IV 2147: I reevaluated and updated the patient. 2205: Reevaluated the patient. Discussed results and discharge instructions: She verbalized understanding and agreement. The patient is ready for discharge. Medical Decision Differential diagnoses include: musculoskeletal chest pain, SC, aortic dissection, PE, pneumonia, pneumothorax, migraine headache, and concussion. There is a mild leukocytosis, the patient has a history of the same. No concerning anemia. No significant electrolyte abnormality, kidney failure or hepatitis. EKG shows a sinus rhythm, no acute ischemia. Cardiac enzyme testing 2 is not consistent with acute cardiac injury. Chest film does not show mediastinal widening, pneumonia or pneumothorax. The patient received IV Toradol, IV Benadryl and IV Compazine. These medications were given for her chest pain as well as her headache. She has a history of migraine headaches. Patient is improved. Her chest pain does seem reproducible on exam and I suspect is musculoskeletal. The patient has been reassured and is being discharged home. Medication Reconcilliation Current Medication List: was personally reviewed by me Blood Pressure Screening Patient's blood pressure: Elevated blood pressure Blood pressure disposition: Elevated BP felt to be situational Impression Primary Impression: Precordial chest pain Additional Impression: Headache Scribe Attestation The scribe's documentation has been prepared under my direction and personally reviewed by me in its entirety. I confirm that the note above accurately reflects all work, treatment, procedures, and medical decision making performed by me. Departure Information Dispostion Home / Self-Care Referrals Cipriano Peña M.D. (MEDICAL) (PCP) Forms Call Back Authorization, HOME CARE DOCUMENTATION FORM, IMPORTANT VISIT INFORMATION Patient Instructions My [facility] Additional Instructions otc pain meds heat to the chest wall may help heart testing was all ok today see darnell juarez for recheck this week return if worsening Problem Qualifiers
[2017-09-18 19:52] LABS: MEAN CELL VOLUME 84.6 fL (80-100); MEAN CORPUSCULAR HEMOGLOBIN 29.1 pg (25-34); MEAN CORPUSCULAR HGB CONC 34.4 g/dl (32-36); MEAN PLATELET VOLUME 9.3 fL (7.4-10.4); PLATELET COUNT 377 K/uL (130-400); RED BLOOD COUNT 4.61 M/uL (4.2-5.4); WHITE BLOOD COUNT 13.92 K/uL (4.8-10.8)
[2017-09-18] MEDS ORDERED: ESOM1CAP34 PO (19:56)
[2017-09-18] MEDS ORDERED: NRN100 PO (19:56)
[2017-09-18] MEDS ORDERED: SENN-65 PO (20:07)
[2017-09-18 20:13] LABS: INR 0.9 (0.9-1.1); PARTIAL THROMBOPLASTIN RATIO 0.9
[2017-09-18 20:22] LABS: BUN/CREATININE RATIO 14.9 (10-20); CALCIUM 9.5 mg/dl (8.5-10.1); CREATININE 0.98 mg/dl (0.60-1.20); POTASSIUM 3.7 mmol/L (3.5-5.1)
--- NOTE | 2017-09-18 20:23 | DIAGNOSTIC IMAGING REPORT ---
CHEST ONE VIEW PORTABLE HISTORY: Atypical CHEST PAIN COMPARISON: Chest 08/25/2017. Chest 01/25/2016. FINDINGS: Persistent left deviation of the upper trachea. 5 mm density within the right anterior third rib remains stable. The lungs are clear. The heart is normal in size. No pleural effusions. No pneumothorax. IMPRESSION: No significant change compared to the prior study. No acute process. Electronically signed by: Reg Anderson M.D. 09/18/2017 8:21 PM Dictated Date/Time: 09/18/2017 8:18 PM
[2017-09-18] MEDS ORDERED: FLNIN/ NAE (20:57)
[2017-09-18] MEDS ORDERED: METO-157 PO (21:00)
[2017-09-18] MEDS ORDERED: ATOR-26 PO (21:11)
[2017-09-18] MEDS ORDERED: LSN25 PO (21:39)
[2017-09-18] MEDS ORDERED: DICY10CA12 PO (21:39)
[2017-09-18] MEDS ORDERED: FERR1TAB62 PO (21:44)
[2017-09-18] MEDS ORDERED: AMT100 PO (21:46)
[2017-09-18] MEDS ORDERED: MIRA100T PO (21:50)
[2017-09-18 22:04] VITALS: BP 131/86; PULSE 94; O2SAT 96
[2017-09-18] MEDS ORDERED: INSDGIPEN SC (22:29)
[2017-09-18] MEDS ORDERED: IPRASOL4 INH (22:43)
== END 2017-09-18 22:03 | disposition home or self-care (01) ==
LOC: C.EDB 19:00 → C.EDC 22:03
DX: R07.2 Precordial pain (principal); R51 Headache; F32.9 Major depressive disorder, single episode, unspecified; F41.9 Anxiety disorder, unspecified; E11.9 Type 2 diabetes mellitus without complications; K31.84 Gastroparesis; K21.9 Gastro-esophageal reflux disease without esophagitis; K58.9 Irritable bowel syndrome, unspecified; J45.30 Mild persistent asthma, uncomplicated; E66.9 Obesity, unspecified; Z80.9 Family history of malignant neoplasm, unspecified; Z82.49 Family history of ischemic heart disease and other diseases of the circulatory system; Z79.82 Long term (current) use of aspirin; Z79.4 Long term (current) use of insulin; Z79.899 Other long term (current) drug therapy

== ENCOUNTER 2017-09-22 19:24 | Emergency (ER) | payer OTHER ==
[~2017-09-22] VITALS: Ht 154.9 cm; Wt 99.6 kg
[~2017-09-22 19:24] MED LIST changes: -DOXY100C2 PO; +HYDR1CAP85 PO; +MELA1CAP9 PO; +SNG10 PO
[2017-09-22] MEDS ORDERED: VLT500 PO (19:28)
[2017-09-22 19:33] VITALS: TEMP 36.7; Ht 154.9 cm; Wt 99.6 kg
[2017-09-22] MEDS ORDERED: ESOM1CAP34 PO (19:56)
[2017-09-22] MEDS ORDERED: NRN100 PO (19:56)
[2017-09-22] MEDS ORDERED: SENN-65 PO (20:07)
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
[2017-09-22 20:31] VITALS: BP 121/82
[2017-09-22 20:39] VITALS: PULSE 85; O2SAT 95
[2017-09-22] MEDS ORDERED: FLNIN/ NAE (20:57)
[2017-09-22] MEDS ORDERED: METO-157 PO (21:00)
[2017-09-22] MEDS ORDERED: ATOR-26 PO (21:11)
[2017-09-22] MEDS ORDERED: DICY10CA12 PO (21:39)
[2017-09-22] MEDS ORDERED: LSN25 PO (21:39)
[2017-09-22] MEDS ORDERED: FERR1TAB62 PO (21:44)
[2017-09-22] MEDS ORDERED: AMT100 PO (21:46)
[2017-09-22] MEDS ORDERED: MIRA100T PO (21:50)
[2017-09-22] MEDS ORDERED: INSDGIPEN SC (22:29)
[2017-09-22] MEDS ORDERED: IPRASOL4 INH (22:43)
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
== END 2017-09-22 20:47 | disposition home or self-care (01) ==
LOC: C.EDB 19:25 → C.EDC 20:47
DX: J70.5 Respiratory conditions due to smoke inhalation (principal); F32.9 Major depressive disorder, single episode, unspecified; F41.9 Anxiety disorder, unspecified; E11.9 Type 2 diabetes mellitus without complications; K21.9 Gastro-esophageal reflux disease without esophagitis; E66.9 Obesity, unspecified; J45.909 Unspecified asthma, uncomplicated; K58.9 Irritable bowel syndrome, unspecified; K31.84 Gastroparesis; Z82.49 Family history of ischemic heart disease and other diseases of the circulatory system; Z79.82 Long term (current) use of aspirin; Z79.4 Long term (current) use of insulin

== ENCOUNTER 2017-10-05 23:12 | Emergency (ER) | payer OTHER ==
[~2017-10-05] VITALS: Ht 154.9 cm; Wt 98.6 kg
[~2017-10-05 23:12] MED LIST changes: +AMT100 PO; +ATOR-26 PO; +DICY10CA12 PO; +ESOM1CAP34 PO; +FERR1TAB62 PO; +FLNIN/ NAE; +INSDGIPEN SC; +IPRASOL4 INH; +LSN25 PO; +METO-157 PO; +MIRA100T PO; +NRN100 PO; +SENN-65 PO; +VLT500 PO
[2017-10-05 23:21] VITALS: Ht 154.9 cm; Wt 98.6 kg
[2017-10-06 00:16] LABS: HEMATOCRIT 37.4 % (37-47); MEAN CELL VOLUME 84.2 fL (80-100); MEAN CORPUSCULAR HEMOGLOBIN 28.6 pg (25-34); MEAN PLATELET VOLUME 8.9 fL (7.4-10.4); PLATELET COUNT 342 K/uL (130-400); RED BLOOD COUNT 4.44 M/uL (4.2-5.4); WHITE BLOOD COUNT 12.35 K/uL (4.8-10.8)
[2017-10-06 00:25] LABS: INR 0.9 (0.9-1.1); PARTIAL THROMBOPLASTIN RATIO 0.9; PROTHROMBIN TIME (PATIENT) 9.8 SECONDS (9.0-12.0)
[2017-10-06 00:42] LABS: BUN/CREATININE RATIO 15.4 (10-20); CALCIUM 8.3 mg/dl (8.5-10.1); CREATININE 0.74 mg/dl (0.60-1.20); POTASSIUM 3.4 mmol/L (3.5-5.1)
[2017-10-06 00:47] LABS: CKMB/CK RATIO 1.4 (0-3.0)
--- NOTE | 2017-10-06 00:59 | EMERGENCY ROOM VISIT NOTE ---
History Report prepared by Tamera: Analilia Mustafa Under the Supervision of: Dr. Deana Wilkinson D.O. First contact with patient: 00:11 Chief Complaint: CHEST PAIN Stated Complaint: CHEST PAIN Nursing Triage Summary: Chest pain that began tonight at 2200, notes SOB, nausea as well. Patient has also had a cough for days and is unsure if chest pain is related. History of Present Illness The patient is a 57 year old female who presents to the Emergency Room with complaints of an episode of chest pain beginning about 3 hours ago. The patient describes her pain as "squeezing" and rates it as a 10/10. Her pain also radiates to her back. She reports some nausea and a mild headache. She was recently seen in the ED for the same symptoms and was diagnosed with chest wall pain. The patient has a history of migraines. Pt denies change in vision, fevers , shortness of breath, vomiting, diarrhea, pain with urination, and melena. Patient wanted to the emergency room, here frequently with similar complaints. Source of History: patient Onset: about 3 hours ago Position: chest Symptom Intensity: 10/10 Quality: other ("squeezing") Associated Symptoms: + headache, + chest pain, + nausea, No fevers, No SOB, No vomiting, No diarrhea, No urinary symptoms Review of Systems See HPI for pertinent positives & negatives. A total of 10 systems reviewed and were otherwise negative. Past Medical & Surgical Medical Problems: (1) Abdominal pain (2) Cervicalgia (3) Depression with anxiety (4) DM type 2 (diabetes mellitus, type 2) (5) Gastroparesis (6) GERD (gastroesophageal reflux disease) (7) IBS (irritable bowel syndrome) (8) Moderate persistent asthma (9) Obesity Surgical Problems: (1) H/O dilation and curettage (2) H/O: hysterectomy (3) History of tonsillectomy and adenoidectomy (4) History of tubal ligation Social History Problems: (1) Herpes simplex Family History FH: cancer FATHER Heart disease Social History Smoking Status: Former Smoker Alcohol Use: none Drug Use: none Housing Status: lives with significant other Occupation Status: employed Current/Historical Medications Scheduled Amitriptyline HCl (Amitriptyline HCl), 100 MG PO HS Aspirin (Aspirin), 81 MG PO DAILY Atorvastatin (Lipitor), 80 MG PO HS Buspirone Hcl (Buspirone Hcl), 5 MG PO BID Duloxetine HCl (Duloxetine HCl), 60 MG PO DAILY Esomeprazole Magnesium (Esomeprazole Magnesium), 40 MG PO QAM Estradiol Vaginal (Estrace), 1 APPLN PV 2XWK Ferrous Sulfate (Ferrous Sulfate), 325 MG PO TIDM Fluticasone Prop/Salmeterol (Advair Diskus 500/50 60 Dose), 1 PUFF INH BID Fluticasone Propionate (Fluticasone Propionate), 1 SPRAY JG BID Gabapentin (Gabapentin), 200 MG PO HS Hydroxyzine Pamoate (Vistaril), 25 MG PO BID Insulin Glargine (Lantus Solostar), 5 UNITS SC HS Lisinopril (Lisinopril), 2.5 MG PO DAILY Metformin HCl (Metformin HCl), 500 MG PO BIDM Metoclopramide Hcl (Reglan), 10 MG PO ACHS Mirabegron (Myrbetriq Er), 25 MG PO QAM Montelukast Sod (Montelukast Sodium), 10 MG PO DAILY Multivitamin (Multivitamin), 1 TAB PO DAILY Oxybutynin Chloride (Ditropan), 10 MG PO DAILY Polyethylene (Polyethylene Glycol 3350), 17 GM PO QAM Potassium Gluconate (Potassium Gluconate), 1,190 MG PO DAILY Ranitidine HCl (Ranitidine HCl), 150 MG PO HS Senna/Docusate Sod (Senokot S), 1 TAB PO QAM Scheduled PRN Dicyclomine Hcl (Dicyclomine Hcl), 10 MG PO QID PRN for Moderate Pain Ipratropium-Albuterol (Duoneb), 1 TREATMENT INH QID PRN for SOB/Wheezing Melatonin (Melatonin), 10 MG PO HS PRN for Sleep Promethazine HCl (Promethazine HCl), 25 MG PO Q6H PRN for Nausea Sucralfate (Sucralfate), 1 GM PO ACHS PRN for Stomach Pain Valacyclovir HCl (Valacyclovir HCl), 500 MG PO TID PRN for Outbreaks Allergies Coded Allergies: Hydromorphone (Verified Allergy, Severe, itching, 10/06/17) Ondansetron (Verified Allergy, Intermediate, hives; RASH, 10/06/17) Sulfa Antibiotics (Verified Allergy, Intermediate, rash, 10/06/17) Aminoglycosides (Verified Allergy, Unknown, >, 10/06/17) Bacitracin (Verified Allergy, Unknown, >, 10/06/17) Ceftriaxone (Verified Allergy, Unknown, Rash, hives and itchiness., ) Cephalexin (Verified Allergy, Unknown, hives, 10/06/17) Latex1 -Allergic Contact Dermititis (Verified Allergy, Unknown, 10/06/17) Neomycin (Verified Allergy, Unknown, >, 10/06/17) Polymyxin B (Verified Allergy, Unknown, >, 10/06/17) Sulfamethoxazole w/Trimethoprim (Verified Allergy, Unknown, Unknown, ) Physical Exam Vital Signs Date Time Temp Pulse Resp B/P (MAP) Pulse Ox O2 Delivery O2 Flow Rate FiO2 10/06/17 02:29 98 20 114/61 98 10/06/17 00:42 81 22 139/72 93 Room Air 10/06/17 00:20 81 10/06/17 00:12 81 22 92 Room Air 10/06/17 00:11 Room Air 10/06/17 00:11 98 Room Air 10/06/17 00:10 Room Air 10/05/17 23:29 98 Room Air 10/05/17 23:21 83 18 144/74 97 Room Air Physical Exam GENERAL: alert, well appearing, well nourished, no distress, non-toxic EYE EXAM: normal conjunctiva, PERRL and EOM's grossly intact OROPHARYNX: edentulous, no exudate, no erythema, lips, buccal mucosa, and tongue normal and mucous membranes are moist NECK: supple, no nuchal rigidity, no adenopathy, non-tender LUNGS: Clear to auscultation. Normal chest wall mechanics CHEST: Mild reproducible pain in central sternum. HEART: no murmurs, S1 normal and S2 normal ABDOMEN: abdomen soft, non-tender, normo-active bowel sounds, no masses, no rebound or guarding. BACK: Back is symmetrical on inspection and there is no deformity, no midline tenderness, no CVA tenderness. SKIN: no rashes and no bruising UPPER EXTREMITIES: upper extremities are grossly normal. LOWER EXTREMITIES: No pitting edema. NEURO EXAM: Normal sensorium, cranial nerves II-XII grossly intact, normal speech, no gross weakness of arms, no gross weakness of legs. Medical Decision & Procedures ER Provider Diagnostic Interpretation: Chest X-Ray interpreted to me: no cardiomegaly, no effusion, no wide mediastinum , no focal infiltrate, patient rotated. Laboratory Results 10/06/17 00:06 10/06/17 00:06 Test 10/06/17 00:06 10/06/17 00:14 Red Blood Count 4.44 M/uL (4.2-5.4) Mean Corpuscular Volume 84.2 fL (80-100) Mean Corpuscular Hemoglobin 28.6 pg (25-34) Mean Corpuscular Hemoglobin Concent 34.0 g/dl (32-36) RDW Standard Deviation 42.4 fL (36.4-46.3) RDW Coefficient of Variation 13.8 % (11.5-14.5) Mean Platelet Volume 8.9 fL (7.4-10.4) Prothrombin Time 9.8 SECONDS (9.0-12.0) Prothromb Time International Ratio 0.9 (0.9-1.1) Activated Partial Thromboplast Time 24.5 SECONDS (21.0-31.0) Partial Thromboplastin Ratio 0.9 Anion Gap 7.0 mmol/L (3-11) Est Creatinine Clear Calc Drug Dose 88.0 ml/min Estimated GFR () 102.8 Estimated GFR (Non- 88.7 BUN/Creatinine Ratio 15.4 (10-20) Calcium Level 8.3 mg/dl (8.5-10.1) Total Bilirubin 0.3 mg/dl (0.2-1) Aspartate Amino Transf (AST/SGOT) 19 U/L (15-37) Alanine Aminotransferase (ALT/SGPT) 48 U/L (12-78) Alkaline Phosphatase 145 U/L (45-117) Total Creatine Kinase 49 U/L (26-192) Creatine Kinase MB 0.7 ng/ml (0.5-3.6) Creatine Kinase MB Ratio 1.4 (0-3.0) Total Protein 6.7 gm/dl (6.4-8.2) Albumin 3.3 gm/dl (3.4-5.0) Globulin 3.4 gm/dl (2.5-4.0) Albumin/Globulin Ratio 1.0 (0.9-2) Bedside Troponin I < 0.030 ng/ml (0-0.045) Laboratory results per my review. Medications Administered Medications (Trade) Dose Ordered Sig/Antony Route Start Time Stop Time Status Last Admin Dose Admin Acetaminophen (Tylenol Tab) 650 mg NOW STAT PO 10/06/17 02:00 10/06/17 02:02 DC 10/06/17 02:00 650 MG ECG Indication: chest pain Rate (beats per minute): 85 Rhythm: normal sinus Findings: no acute ischemic change, no ectopy, other (normal axis) ED Course 0022: The patient was evaluated in room C12B. A complete history and physical exam was performed. 0154: I updated the patient on her test results she is resting comfortably. 0200: Ordered Tylenol tab 650 mg PO. 0223: Upon reevaluation, the patient is feeling better. I discussed the findings and the treatment plan with the patient. She verbalizes agreement and understanding. The patient was discharged home. Medical Decision Differential diagnosis: Etiologies such as cardiac ischemia, aortic dissection, pulmonary embolism, pneumonia, pneumothorax, musculoskeletal, infections, pericarditis, myocarditis , esophageal rupture, gastrointestinal, as well as others were entertained. Patient well-appearing here throughout. Patient here frequently with prior complaints of chest pain. Labs and imaging reassuring. I do not suspect dissection, PE, ACS, pneumonia, no evidence of dysrhythmia on telemetry, doubt occult infectious etiology. Discussed with patient close follow-up, symptoms watch return for, she verbalized understanding was agreeable with plan. Medication Reconcilliation Current Medication List: was personally reviewed by me Blood Pressure Screening Patient's blood pressure: Elevated blood pressure Blood pressure disposition: Elevated BP felt to be situational Impression Primary Impression: Chest pain Scribe Attestation The scribe's documentation has been prepared under my direction and personally reviewed by me in its entirety. I confirm that the note above accurately reflects all work, treatment, procedures, and medical decision making performed by me. Departure Information Dispostion Home / Self-Care Referrals Cipriano Peña M.D. (MEDICAL) (PCP) Forms Call Back Authorization, HOME CARE DOCUMENTATION FORM, IMPORTANT VISIT INFORMATION Patient Instructions My [facility] Additional Instructions Please continue regular medications as prescribed. Please continue to monitor for any other new or concerning symptoms. If you develop recurrent chest pain, dizziness, trouble breathing, fevers, vomiting, back pain, or you have any other new concerns, please return the emergency room. Problem Qualifiers Primary Impression: Chest pain Chest pain type: unspecified Qualified Codes: R07.9 - Chest pain, unspecified
[2017-10-06] MEDS ORDERED: ACETAMINOPHEN 325 MG TAB PO STA (02:00)
[2017-10-06 02:29] VITALS: BP 114/61; PULSE 98; O2SAT 98
--- NOTE | 2017-10-06 06:37 | DIAGNOSTIC IMAGING REPORT ---
CHEST ONE VIEW PORTABLE HISTORY: 57 years-old Female chest pain acute atypical chest pain COMPARISON: Chest radiographs 09/22/2017 TECHNIQUE: Portable AP view of the chest FINDINGS: Cardiomediastinal and hilar silhouettes are within normal limits. Mild right diaphragmatic elevation. There is no pneumothorax, pleural effusion, focal airspace consolidation or overt pulmonary edema. The bones of the chest are grossly intact. IMPRESSION: No acute cardiopulmonary process. The above report was generated using voice recognition software. It may contain grammatical, syntax or spelling errors. Electronically signed by: Nixon Moctezuma M.D. 10/06/2017 6:36 AM Dictated Date/Time: 10/06/2017 6:35 AM
== END 2017-10-06 02:30 | disposition home or self-care (01) ==
LOC: C.EDB 23:14 → C.EDC 10-06 02:30
DX: R07.9 Chest pain, unspecified (principal); E11.9 Type 2 diabetes mellitus without complications; K21.9 Gastro-esophageal reflux disease without esophagitis; K58.9 Irritable bowel syndrome, unspecified; J45.909 Unspecified asthma, uncomplicated; E66.9 Obesity, unspecified; Z82.49 Family history of ischemic heart disease and other diseases of the circulatory system; Z87.891 Personal history of nicotine dependence; Z79.82 Long term (current) use of aspirin; Z79.4 Long term (current) use of insulin

== ENCOUNTER 2017-10-15 15:21 | Emergency (ER) | payer OTHER ==
[~2017-10-15] VITALS: Ht 154.9 cm; Wt 100.1 kg
[~2017-10-15 15:21] MED LIST changes: -ADVIN50/60 INH; -AMT100 PO; -ASPI1TAB83 PO; -ATOR-26 PO; -BUSP5TAB59 PO; -CYM60 PO; -DICY10CA12 PO; -DTR/5 PO; -ESTCR PV; -FLNIN/ NAE; -GLC500 PO; -HYDR1CAP85 PO; -IPRASOL4 INH; -LSN25 PO; -MELA1CAP9 PO; -METO-157 PO; -MIRA100T PO; -MRLP527 PO; -MULT-506 PO; -NRN100 PO; -POTA1TAB PO; -PROM25TA16 PO; -RANI150T2 PO; -SENN-65 PO; -SNG10 PO; -SUCR1TAB PO; -VLT500 PO
[2017-10-15 15:25] VITALS: TEMP 36.6; Ht 154.9 cm; Wt 100.1 kg
--- NOTE | 2017-10-15 16:29 | DIAGNOSTIC IMAGING REPORT ---
RIGHT ELBOW 3 VIEWS HISTORY: R elbow pain COMPARISON: None. FINDINGS: There is no fracture or dislocation. Soft tissues are unremarkable. No elbow effusion. IMPRESSION: No fractures. Electronically signed by: Reg Anderson M.D. 10/15/2017 4:28 PM Dictated Date/Time: 10/15/2017 4:27 PM
--- NOTE | 2017-10-15 16:51 | EMERGENCY ROOM VISIT NOTE ---
ED Visit Note First contact with patient: 15:29 I did evaluate and examine this patient myself. I did guide management for the patient. I agree with the APC's assessment as discussed. Please see the APC's dictation for further details. I did independently review the x-rays. There is no evidence of fracture or dislocation. The patient was advised follow with her doctor.
[2017-10-15 17:09] VITALS: BP 164/80; PULSE 92; O2SAT 96
--- NOTE | 2017-11-01 22:35 | EMERGENCY ROOM VISIT NOTE ---
History First contact with patient: 15:29 Chief Complaint: ELBOW PAIN/INJURY Stated Complaint: R ELBOW PAIN History of Present Illness The patient is a 57 year old female who presents to the Emergency Room with complaints of persistent right elbow pain after striking her elbow on a door frame 1 week ago. The patient has not followed up with her family doctor, and elected to come to the emergency department after presenting to the emergency department with a friend for other evaluation. She currently denies any paresthesias or numbness of the right hand or fingers. The patient is right- hand-dominant. Review of Systems 10 system review was performed and was negative except for pertinent positives and negatives as indicated in history of present illness Past Medical/Surgical History Medical Problems: (1) Abdominal pain (2) Cervicalgia (3) Depression with anxiety (4) DM type 2 (diabetes mellitus, type 2) (5) Gastroparesis (6) GERD (gastroesophageal reflux disease) (7) IBS (irritable bowel syndrome) (8) Moderate persistent asthma (9) Obesity Surgical Problems: (1) H/O dilation and curettage (2) H/O: hysterectomy (3) History of tonsillectomy and adenoidectomy (4) History of tubal ligation Social History Problems: (1) Herpes simplex Family History FH: cancer FATHER Heart disease Social History Smoking Status: Former Smoker Alcohol Use: none Drug Use: none Housing Status: lives with significant other Occupation Status: employed Current/Historical Medications Scheduled Amitriptyline HCl (Amitriptyline HCl), 100 MG PO HS Aspirin (Aspirin), 81 MG PO DAILY Atorvastatin (Lipitor), 80 MG PO HS Buspirone Hcl (Buspirone Hcl), 5 MG PO BID Duloxetine HCl (Duloxetine HCl), 60 MG PO DAILY Esomeprazole Magnesium (Esomeprazole Magnesium), 40 MG PO QAM Estradiol Vaginal (Estrace), 1 APPLN PV 2XWK Fluticasone Prop/Salmeterol (Advair Diskus 500/50 60 Dose), 1 PUFF INH BID Fluticasone Propionate (Fluticasone Propionate), 1 SPRAY JG BID Gabapentin (Gabapentin), 400 MG PO HS Hydroxyzine Pamoate (Vistaril), 25 MG PO BID Insulin Glargine (Lantus Solostar), 5 UNITS SC HS Lisinopril (Lisinopril), 2.5 MG PO DAILY Metformin HCl (Metformin HCl), 500 MG PO BIDM Metoclopramide Hcl (Reglan), 10 MG PO ACHS Mirabegron (Myrbetriq Er), 25 MG PO QAM Montelukast Sod (Montelukast Sodium), 10 MG PO DAILY Multivitamin (Multivitamin), 1 TAB PO DAILY Oxybutynin Chloride (Ditropan), 10 MG PO DAILY Polyethylene (Polyethylene Glycol 3350), 17 GM PO QAM Potassium Gluconate (Potassium Gluconate), 1,190 MG PO DAILY Ranitidine HCl (Ranitidine HCl), 150 MG PO HS Senna/Docusate Sod (Senokot S), 1 TAB PO QAM Scheduled PRN Dicyclomine Hcl (Dicyclomine Hcl), 10 MG PO QID PRN for Moderate Pain Ipratropium-Albuterol (Duoneb), 1 TREATMENT INH QID PRN for SOB/Wheezing Melatonin (Melatonin), 10 MG PO HS PRN for Sleep Promethazine HCl (Promethazine HCl), 25 MG PO Q6H PRN for Nausea Sucralfate (Sucralfate), 1 GM PO ACHS PRN for Stomach Pain Valacyclovir HCl (Valacyclovir HCl), 500 MG PO TID PRN for Outbreaks Physical Exam Vital Signs Date Time Temp Pulse Resp B/P (MAP) Pulse Ox O2 Delivery O2 Flow Rate FiO2 10/15/17 17:09 92 18 164/80 96 10/15/17 15:25 36.6 94 17 130/85 97 Room Air Physical Exam CONSTITUTIONAL: Healthy and well nourished. Alert and oriented X 3 with positive affect. HEENT: Normocephalic, atraumatic. Pupils equal, round and reactive. MUSCULOSKELETAL: Examination of the right elbow does not show any erythema, ecchymosis or obvious deformities. She has minimal generalized tenderness to palpation of the posterior elbow region. She has no worsening discomfort with pronation or supination. 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 Distal pulses are intact. INTEGUMENTARY: No rash or other significant dermatologic conditions noted. NEUROLOGIC: Right upper extremity is sensory intact. Medical Decision & Procedures ER Provider Diagnostic Interpretation: My interpretation of right elbow x-rays does not show any obvious avulsions, fractures or joint effusion. Radiologist report is as follows: RIGHT ELBOW 3 VIEWS HISTORY: R elbow pain COMPARISON: None. FINDINGS: There is no fracture or dislocation. Soft tissues are unremarkable. No elbow effusion. IMPRESSION: No fractures. ED Course Patient history and physical exam were performed. Nurse's notes were reviewed. Vital signs were reviewed and were normal. X-rays of the right elbow were normal. The patient was encouraged to continue intermittently apply ice to the elbow. Ibuprofen or Tylenol as needed for pain. She was encouraged to follow- up with her PCP as needed for further management. A voiced understanding of all discharge instructions, and denied any significant pain at the conclusion of my exam. The patient was also seen and examined by Dr. Hawkins, ED attending physician, who agrees with workup and plan of care. Medical Decision Blood Pressure Screening Patient's blood pressure: Normal blood pressure Impression Primary Impression: Contusion of right elbow Additional Impression: Fall from slip, trip, or stumble Departure Information Dispostion Home / Self-Care Condition GOOD Forms HOME CARE DOCUMENTATION FORM, IMPORTANT VISIT INFORMATION Patient Instructions My [facility] Additional Instructions Intermittently apply ice to elbow. Ibuprofen or Tylenol as needed for pain. Follow-up with your family doctor or orthopedics if symptoms persist. Problem Qualifiers Primary Impression: Contusion of right elbow Encounter type: initial encounter Qualified Codes: S50.01XA - Contusion of right elbow, initial encounter Additional Impression: Fall from slip, trip, or stumble Encounter type: initial encounter Qualified Codes: W01.0XXA - Fall on same level from slipping, tripping and stumbling without subsequent striking against object, initial encounter
[2017-11-02] MEDS ORDERED: ESOM20CA PO (10:31)
[2018-03-05] MEDS ORDERED: ADVIN50/60 INH (16:10)
[2018-04-29] MEDS ORDERED: DTR/5 PO (14:15)
[2018-04-29] MEDS ORDERED: PROM25TA16 PO (14:59)
[2018-04-29] MEDS ORDERED: POTA1TAB PO (15:03)
[2018-04-29] MEDS ORDERED: MULT-506 PO (15:53)
[2018-04-29] MEDS ORDERED: MRLP527 PO (15:56)
[2018-04-29] MEDS ORDERED: CYM60 PO (15:56)
[2018-04-29] MEDS ORDERED: SUCR1TAB PO (15:56)
[2018-04-29] MEDS ORDERED: RANI150T2 PO (15:56)
[2018-04-29] MEDS ORDERED: INSU3INJ3 SC (16:22)
[2018-04-29] MEDS ORDERED: GLC500 PO (16:26)
[2018-04-29] MEDS ORDERED: ASPI81TA28 PO (18:36)
[2018-04-29] MEDS ORDERED: GABA-1219 PO (18:36)
[2018-04-29] MEDS ORDERED: ESOM45CA PO (18:36)
[2018-04-29] MEDS ORDERED: SNG10 PO (19:14)
[2018-04-29] MEDS ORDERED: MELA1CAP9 PO (19:14)
[2018-04-29] MEDS ORDERED: HYDR1CAP85 PO (19:25)
[2018-04-29] MEDS ORDERED: BUSP5TAB59 PO (19:25)
[2018-04-29] MEDS ORDERED: VLT500 PO (19:28)
[2018-04-29] MEDS ORDERED: SENN-65 PO (20:07)
[2018-04-29] MEDS ORDERED: FLNIN/ NAE (20:57)
[2018-04-29] MEDS ORDERED: METO-157 PO (21:00)
[2018-04-29] MEDS ORDERED: ACET-1256 PO (21:07)
[2018-04-29] MEDS ORDERED: ATOR-26 PO (21:11)
[2018-04-29] MEDS ORDERED: DICY10CA12 PO (21:39)
[2018-04-29] MEDS ORDERED: LSN25 PO (21:39)
[2018-04-29] MEDS ORDERED: AMT100 PO (21:46)
[2018-04-29] MEDS ORDERED: MIRA100T PO (21:50)
[2018-04-29] MEDS ORDERED: IPRA-64 INH (22:43)
== END 2017-10-15 17:09 | disposition home or self-care (01) ==
LOC: C.EDB 15:22 → C.EDD 17:09
DX: S50.01XA Contusion of right elbow, initial encounter (principal); W01.0XXA Fall on same level from slipping, tripping and stumbling without subsequent striking against object, initial encounter; F32.9 Major depressive disorder, single episode, unspecified; F41.9 Anxiety disorder, unspecified; E11.43 Type 2 diabetes mellitus with diabetic autonomic (poly)neuropathy; K21.9 Gastro-esophageal reflux disease without esophagitis; K58.9 Irritable bowel syndrome, unspecified; J45.40 Moderate persistent asthma, uncomplicated; Z79.82 Long term (current) use of aspirin; Z79.51 Long term (current) use of inhaled steroids; Z79.4 Long term (current) use of insulin; Z87.891 Personal history of nicotine dependence

== ENCOUNTER 2017-11-11 15:04 | Emergency (ER) | payer OTHER ==
[~2017-11-11] VITALS: Ht 154.9 cm; Wt 99.8 kg
[~2017-11-11 15:04] MED LIST changes: +DTR/5 PO; -ESOM1CAP34 PO; +ESOM20CA PO; -FERR1TAB62 PO; +POTA1TAB PO; +PROM25TA16 PO
[2017-11-11 15:09] VITALS: TEMP 36.6; Ht 154.9 cm; Wt 99.8 kg
[2017-11-11] MEDS ORDERED: XYLOCAINE 1%/SOD BICARB 20 ML VIAL INFIL STA (15:20)
--- NOTE | 2017-11-11 15:25 | EMERGENCY ROOM VISIT NOTE ---
ED Visit Note First contact with patient: 15:11 CHIEF COMPLAINT: "Boil on my vagina" HISTORY OF PRESENT ILLNESS: This 57-year-old female patient presents to the emergency department, ambulatory, approximately one week after they noticed a hard, red, tender area on the left perineal area. It is slowly getting larger, more painful and tender. No fever, chills, or loss of appetite. There has been mild drainage from the area today. There was no injury to the area preceding the infection. They rate the pain as sharp and 10/10. Tetanus shot is up to date. They have tried warm soaks and compresses. The patient is diabetic. The patient has no history of subcutaneous abscesses. REVIEW OF SYSTEMS: A 10 system review of systems was performed with positives and pertinent negatives listed in the history of present illness. All other systems were reviewed and are negative. ALLERGIES: Latex, Keflex, Dilaudid, Bactrim, ceftriaxone, Zofran, sulfa, neomycin, polymyxin B MEDICATIONS: See list PMH: Diabetes, asthma, depression, IBS, migraines SOCIAL HISTORY: The patient lives locally with family. She denies drug, alcohol , tobacco use. PHYSICAL EXAM: Vital Signs: Reviewed Nurse's notes, vital signs stable. GENERAL : This is a 57-year-old obese white female, no acute distress, non toxic in appearance, well-developed well-nourished. SKIN: There is an erythematous indurated area on the perineum which measures about 2 cm in diameter. It is fluctuant but there is no pointing or drainage. There is a zone of inflammation around it but no lymphangitis. Capillary refill less than 2 seconds. EMERGENCY DEPARTMENT COURSE: I examined the patient. Verbal consent was obtained to perform the procedure. After saline and Betadine cleansing and 5 mL of 1% buffered lidocaine anesthesia, the abscess was incised with a number 11 scalpel blade. A large amount of purulent material was released with more expressed by pressure. A swab was obtained for culture. The abscess cavity was further probed with a needle tilt tray driver and the deep pocket expressed. The abscess cavity was then copiously irrigated with sterile saline under pressure. The area was then packed with plain, nonmedicated packing. The area was cleaned with sterile saline and dressed with bacitracin and a bulky bandage. The patient tolerated the procedure well. The patient was discharged home in stable condition. I did speak with Dr. Montes regarding the patient and her care. Please refer to his dictation. I attest that I have personally reviewed the patient's current medication list. Patient was found to have normal blood pressure on screening and does not require follow-up. DIFFERENTIAL DIAGNOSIS: Abscess, cellulitis, ingrown hair, STD, malignancy, and others DIAGNOSIS: Abscess of the perineum Problem List Medical Problems: (1) Cervicalgia Status: Chronic (2) Depression with anxiety Status: Chronic (3) DM type 2 (diabetes mellitus, type 2) Status: Chronic (4) Gastroparesis Status: Chronic (5) GERD (gastroesophageal reflux disease) Status: Chronic (6) IBS (irritable bowel syndrome) Status: Chronic (7) Moderate persistent asthma Status: Chronic (8) Obesity Status: Chronic Surgical Problems: (1) H/O dilation and curettage Status: Chronic (2) H/O: hysterectomy Permanent Comment: COURT with SBO performed by Dr. Tanner 2007 Status: Chronic (3) History of tonsillectomy and adenoidectomy Status: Chronic (4) History of tubal ligation Status: Chronic Social History Problems: (1) Herpes simplex Status: Resolved Current/Historical Medications Scheduled Amitriptyline HCl (Amitriptyline HCl), 100 MG PO HS Aspirin (Aspirin), 81 MG PO DAILY Atorvastatin (Lipitor), 80 MG PO HS Buspirone Hcl (Buspirone Hcl), 5 MG PO BID Clindamycin HCl (Clindamycin HCl), 1 CAP PO TID Duloxetine HCl (Duloxetine HCl), 60 MG PO DAILY Esomeprazole Magnesium (Nexium), 20 MG PO DAILY Estradiol Vaginal (Estrace), 1 APPLN PV 2XWK Fluticasone Prop/Salmeterol (Advair Diskus 500/50 60 Dose), 1 PUFF INH BID Fluticasone Propionate (Fluticasone Propionate), 1 SPRAY JG BID Gabapentin (Gabapentin), 400 MG PO HS Hydroxyzine Pamoate (Vistaril), 25 MG PO BID Insulin Glargine (Lantus Solostar), 5 UNITS SC HS Lisinopril (Lisinopril), 2.5 MG PO DAILY Metformin HCl (Metformin HCl), 500 MG PO BIDM Metoclopramide Hcl (Reglan), 10 MG PO ACHS Mirabegron (Myrbetriq Er), 25 MG PO QAM Montelukast Sod (Montelukast Sodium), 10 MG PO DAILY Multivitamin (Multivitamin), 1 TAB PO DAILY Oxybutynin Chloride (Ditropan), 10 MG PO DAILY Polyethylene (Polyethylene Glycol 3350), 17 GM PO QAM Potassium Gluconate (Potassium Gluconate), 1,190 MG PO DAILY Ranitidine HCl (Ranitidine HCl), 150 MG PO HS Senna/Docusate Sod (Senokot S), 1 TAB PO QAM Scheduled PRN Dicyclomine Hcl (Dicyclomine Hcl), 10 MG PO QID PRN for Moderate Pain Ipratropium-Albuterol (Duoneb), 1 TREATMENT INH QID PRN for SOB/Wheezing Melatonin (Melatonin), 10 MG PO HS PRN for Sleep Promethazine HCl (Promethazine HCl), 25 MG PO Q6H PRN for Nausea Sucralfate (Sucralfate), 1 GM PO ACHS PRN for Stomach Pain Valacyclovir HCl (Valacyclovir HCl), 500 MG PO TID PRN for Outbreaks Allergies Coded Allergies: Hydromorphone (Verified Allergy, Severe, itching, 10/15/17) Ondansetron (Verified Allergy, Intermediate, hives; RASH, 10/15/17) Sulfa Antibiotics (Verified Allergy, Intermediate, rash, 10/15/17) Aminoglycosides (Verified Allergy, Unknown, >, 10/15/17) Bacitracin (Verified Allergy, Unknown, >, 10/15/17) Ceftriaxone (Verified Allergy, Unknown, Rash, hives and itchiness., ) Cephalexin (Verified Allergy, Unknown, hives, 10/15/17) Latex1 -Allergic Contact Dermititis (Verified Allergy, Unknown, 10/15/17) Neomycin (Verified Allergy, Unknown, >, 10/15/17) Polymyxin B (Verified Allergy, Unknown, >, 10/15/17) Sulfamethoxazole w/Trimethoprim (Verified Allergy, Unknown, Unknown, 10/15) Vital Signs Date Time Temp Pulse Resp B/P (MAP) Pulse Ox O2 Delivery O2 Flow Rate FiO2 11/11/17 15:09 36.6 97 16 133/84 98 Room Air Departure Information Impression Primary Impression: Abscess, perineum Dispostion Home / Self-Care Condition GOOD Prescriptions Clindamycin HCl (Clindamycin HCl) 300 Mg Cap 1 CAP PO TID for 7 Days, #21 CAP Prov: Savana Spencer PA-C 11/11/17 Referrals Cipriano Peña M.D. (MEDICAL) (PCP) Patient Instructions ED Abscess Jon[facility], [facility] Additional Instructions You were seen in the emergency department today for an abscess on your perineum. This was successfully incised and drained. A culture was sent to the lab for testing. A small amount of packing was placed in the abscess to keep it open and allow for ongoing drainage. Please leave this in place for the next 48 hours, then it can be removed. You can either remove it herself at home or return to the emergency department to have this removed and have a wound recheck. You were prescribed clindamycin to be taken 3 times daily. This is an antibiotic. All antibiotics have the potential to cause diarrhea. Stop this medication and contact a medical provider if you were to develop any significant adverse side effects including: wheezing, shortness of breath, passing out, vomiting, or a diffuse rash. Always take antibiotics as directed and COMPLETE the ENTIRE course regardless of the improvement of your symptoms. As discussed, only take this medication if you notice worsening redness, pain, or purulent drainage, as I&D is often enough to treat abscesses. Please follow up with your PCP in 2-3 days for recheck of the wound. Once the packing is removed, continued to clean the wound with soap and water. Please do not scour over the wound, but let the soap and water run over the wound. Return to the emergency department for significant redness, swelling, pain, purulent drainage, fever, chills, nausea, vomiting, or other concerning symptoms.
[2017-11-11] MEDS ORDERED: ASPI1TAB83 PO (15:29)
[2017-11-11] MEDS ORDERED: MULT-506 PO (15:53)
[2017-11-11] MEDS ORDERED: RANI150T2 PO (15:56)
[2017-11-11] MEDS ORDERED: CYM60 PO (15:56)
[2017-11-11] MEDS ORDERED: SUCR1TAB PO (15:56)
[2017-11-11] MEDS ORDERED: MRLP527 PO (15:56)
[2017-11-11] MEDS ORDERED: CLC/300 PO (15:58)
[2017-11-11] MEDS ORDERED: ADVIN50/60 INH (16:10)
[2017-11-11] MEDS ORDERED: ESOM1CAP34 PO (16:19)
[2017-11-11] MEDS ORDERED: INSU3INJ3 SC (16:22)
[2017-11-11] MEDS ORDERED: GLC500 PO (16:26)
[2017-11-11] MEDS ORDERED: BUSP5TAB59 PO (16:26)
[2017-11-11 16:40] VITALS: BP 128/75; PULSE 88; O2SAT 99
[2017-11-11] MEDS ORDERED: ESTCR PV (18:18)
[2017-11-11] MEDS ORDERED: HYDR1CAP85 PO (19:14)
[2017-11-11] MEDS ORDERED: SNG10 PO (19:14)
[2017-11-11] MEDS ORDERED: MELA1CAP9 PO (19:14)
[2017-11-11] MEDS ORDERED: VLT500 PO (19:28)
[2017-11-11] MEDS ORDERED: NRN100 PO (19:56)
[2017-11-11] MEDS ORDERED: SENN-65 PO (20:07)
[2017-11-11] MEDS ORDERED: FLNIN/ NAE (20:57)
[2017-11-11] MEDS ORDERED: METO-157 PO (21:00)
[2017-11-11] MEDS ORDERED: ATOR-26 PO (21:11)
[2017-11-11] MEDS ORDERED: LSN25 PO (21:39)
[2017-11-11] MEDS ORDERED: DICY10CA12 PO (21:39)
[2017-11-11] MEDS ORDERED: AMT100 PO (21:46)
[2017-11-11] MEDS ORDERED: MIRA100T PO (21:50)
[2017-11-11] MEDS ORDERED: IPRASOL4 INH (22:43)
== END 2017-11-11 16:41 | disposition home or self-care (01) ==
LOC: C.EDB 15:06 → C.EDD 16:41
DX: L02.225 Furuncle of perineum (principal); E11.9 Type 2 diabetes mellitus without complications; J45.40 Moderate persistent asthma, uncomplicated; F41.8 Other specified anxiety disorders; K21.9 Gastro-esophageal reflux disease without esophagitis; K31.84 Gastroparesis; K58.9 Irritable bowel syndrome, unspecified; Z90.710 Acquired absence of both cervix and uterus; Z98.51 Tubal ligation status; Z88.2 Allergy status to sulfonamides; Z88.5 Allergy status to narcotic agent; Z88.8 Allergy status to other drugs, medicaments and biological substances; Z91.040 Latex allergy status; Z79.82 Long term (current) use of aspirin; Z79.84 Long term (current) use of oral hypoglycemic drugs; Z79.899 Other long term (current) drug therapy

== ENCOUNTER 2017-11-26 18:27 | Emergency (ER) | payer OTHER ==
[~2017-11-26] VITALS: Ht 154.9 cm; Wt 98.8 kg
[~2017-11-26 18:27] MED LIST changes: +ADVIN50/60 INH; +AMT100 PO; +ASPI1TAB83 PO; +ATOR-26 PO; +BUSP5TAB59 PO; +CYM60 PO; +DICY10CA12 PO; +ESOM1CAP34 PO; -ESOM20CA PO; +ESTCR PV; +FLNIN/ NAE; +GLC500 PO; +HYDR1CAP85 PO; -INSDGIPEN SC; +INSU3INJ3 SC; +IPRASOL4 INH; +LSN25 PO; +MELA1CAP9 PO; +METO-157 PO; +MIRA100T PO; +MRLP527 PO; +MULT-506 PO; +NRN100 PO; +RANI150T2 PO; +SENN-65 PO; +SNG10 PO; +SUCR1TAB PO; +VLT500 PO
[2017-11-26 18:51] VITALS: TEMP 36.9; Ht 154.9 cm; Wt 98.8 kg
[2017-11-26] MEDS ORDERED: SODIUM CHLORIDE 0.9% 500ML 500 ML IV STA (19:02)
[2017-11-26] MEDS ORDERED: PROMETHAZINE HCL INJ 12.5 MG in SODIUM CHLORIDE 0.9% 50ML 50 ML IV STA (19:02)
[2017-11-26] MEDS ORDERED: MoRPHine SULFATE 4 MG/ML 1 ML CARP\\VIAL IV STA (19:02)
[2017-11-26] MEDS ORDERED: KETOROLAC TROMETHAMINE 30 MG/ML VIAL IV STA (19:02)
--- NOTE | 2017-11-26 19:10 | EMERGENCY ROOM VISIT NOTE ---
History Report prepared by Tamera: Raul Colmenares Under the Supervision of: Dr. Alfonso Recio M.D. First contact with patient: 18:59 Chief Complaint: LEG PAIN,LEG INJURY Stated Complaint: PAIN IN LT SIDE LEGS History of Present Illness The patient is a 57 year old female who presents to the Emergency Room with complaints of worsening left leg pain that began 1 day ago. She has associated symptoms of left abdominal pain. She describes the pain as a 9/10 in severity. She states the pain felt like "her leg was going to give out". She states the pain does not radiate to the back. She denies anything exacerbating the pain. She denies a history of similar symptoms. She states she has been taking Tylenol for the pain. Pertinent past medical includes diverticulitis and gastroparesis. She denies any urinary symptoms, vomiting, trauma to the area, fevers, or diarrhea. Patient adds that she has a sinus infection and took her last dose of antibiotics for it today. Source of History: patient Onset: 1 day ago Position: leg (left) Symptom Intensity: 9/10 Timing: worsening Associated Symptoms: + abdominal pain (Left), No fevers, No vomiting, No back pain, No diarrhea, No urinary symptoms Note: Patient denies any trauma to the area. Review of Systems See HPI for pertinent positives & negatives. A total of 10 systems reviewed and were otherwise negative. Past Medical & Surgical Medical Problems: (1) Abdominal pain (2) Cervicalgia (3) Depression with anxiety (4) DM type 2 (diabetes mellitus, type 2) (5) Gastroparesis (6) GERD (gastroesophageal reflux disease) (7) IBS (irritable bowel syndrome) (8) Moderate persistent asthma (9) Obesity Surgical Problems: (1) H/O dilation and curettage (2) H/O: hysterectomy (3) History of tonsillectomy and adenoidectomy (4) History of tubal ligation Social History Problems: (1) Herpes simplex Family History FH: cancer FATHER Heart disease Social History Smoking Status: Former Smoker Alcohol Use: none Drug Use: none Housing Status: lives with significant other Occupation Status: employed Current/Historical Medications Scheduled Amitriptyline HCl (Amitriptyline HCl), 100 MG PO HS Aspirin (Aspirin), 81 MG PO DAILY Atorvastatin (Lipitor), 80 MG PO HS Buspirone Hcl (Buspirone Hcl), 5 MG PO BID Duloxetine HCl (Duloxetine HCl), 60 MG PO DAILY Esomeprazole Magnesium (Esomeprazole Magnesium), 40 MG PO QAM Estradiol Vaginal (Estrace), 1 APPLN PV 2XWK Fluticasone Prop/Salmeterol (Advair Diskus 500/50 60 Dose), 1 PUFF INH BID Fluticasone Propionate (Fluticasone Propionate), 1 SPRAY JG BID Gabapentin (Gabapentin), 400 MG PO HS Hydroxyzine Pamoate (Vistaril), 25 MG PO BID Insulin Detemir (Levemir Flextouch), 5 UNITS SC HS Lisinopril (Lisinopril), 2.5 MG PO DAILY Metformin HCl (Metformin HCl), 500 MG PO BIDM Metoclopramide Hcl (Reglan), 10 MG PO ACHS Mirabegron (Myrbetriq Er), 25 MG PO QAM Montelukast Sod (Montelukast Sodium), 10 MG PO DAILY Multivitamin (Multivitamin), 1 TAB PO DAILY Oxybutynin Chloride (Ditropan), 10 MG PO DAILY Polyethylene (Polyethylene Glycol 3350), 17 GM PO QAM Potassium Gluconate (Potassium Gluconate), 1,190 MG PO DAILY Ranitidine HCl (Ranitidine HCl), 150 MG PO HS Senna/Docusate Sod (Senokot S), 1 TAB PO QAM Scheduled PRN Dicyclomine Hcl (Dicyclomine Hcl), 10 MG PO QID PRN for Moderate Pain Ipratropium-Albuterol (Duoneb), 1 TREATMENT INH QID PRN for SOB/Wheezing Melatonin (Melatonin), 10 MG PO HS PRN for Sleep Promethazine HCl (Promethazine HCl), 25 MG PO Q6H PRN for Nausea Sucralfate (Sucralfate), 1 GM PO ACHS PRN for Stomach Pain Valacyclovir HCl (Valacyclovir HCl), 500 MG PO TID PRN for Outbreaks Allergies Coded Allergies: Hydromorphone (Verified Allergy, Severe, itching, 10/15/17) Ondansetron (Verified Allergy, Intermediate, hives; RASH, 10/15/17) Sulfa Antibiotics (Verified Allergy, Intermediate, rash, 10/15/17) Aminoglycosides (Verified Allergy, Unknown, >, 10/15/17) Bacitracin (Verified Allergy, Unknown, >, 10/15/17) Ceftriaxone (Verified Allergy, Unknown, Rash, hives and itchiness., ) Cephalexin (Verified Allergy, Unknown, hives, 10/15/17) Latex1 -Allergic Contact Dermititis (Verified Allergy, Unknown, 10/15/17) Neomycin (Verified Allergy, Unknown, >, 10/15/17) Polymyxin B (Verified Allergy, Unknown, >, 10/15/17) Sulfamethoxazole w/Trimethoprim (Verified Allergy, Unknown, Unknown, 10/15) Physical Exam Vital Signs Date Time Temp Pulse Resp B/P (MAP) Pulse Ox O2 Delivery O2 Flow Rate FiO2 11/26/17 21:38 104 18 124/78 93 11/26/17 20:10 108 20 124/75 95 Room Air 11/26/17 18:51 36.9 115 20 136/79 96 Room Air Physical Exam GENERAL: Patient is in no acute distress. HEENT: No acute trauma, normocephalic atraumatic, mucous membranes moist, no nasal congestion, no scleral icterus. NECK: No stridor, no adenopathy, no meningismus, trachea is midline. LUNGS: Clear to auscultation bilaterally, no wheeze, no rhonchi, breath sounds equal. HEART: Tachycardic with a regular rhythm, no murmurs. ABDOMEN: Soft, tender along the entire left side, bowel sounds positive, no hernias, no peritonitis. EXTREMITIES: No cyanosis or edema, full range of motion of all the joints without pain or difficulty, no signs for acute trauma. NEUROLOGIC: Oriented x 3, no acute motor or sensory deficits, no focal weakness. SKIN: No rash, no jaundice, no diaphoresis. Medical Decision & Procedures ER Provider Diagnostic Interpretation: Radiology results as stated below per my review and radiologist interpretation: ABDOMEN AND PELVIS CT WITH IV CONTRAST CT DOSE: 1551.67 mGy.cm HISTORY: Generalized abdominal pain. TECHNIQUE: Multiaxial CT images of the abdomen and pelvis were performed following the use of intravenous contrast. A dose lowering technique was utilized adhering to the principles of ALARA. COMPARISON STUDY: Abdomen and pelvis CT 09/08/2017. FINDINGS: The lung bases are clear. The liver, spleen, gallbladder, pancreas, adrenal glands, and right kidney are unremarkable. No hydronephrosis. A 2.4 cm cyst within the left kidney. No retroperitoneal lymphadenopathy. The bladder is unremarkable. The uterus is surgically absent. No bowel wall thickening or obstruction. Colonic diverticulosis. Moderate to large amount well-formed stool seen within the colon. Normal appendix. IMPRESSION: 1. No bowel wall thickening or obstruction. 2. Moderate to large amount of well-formed stool seen within the colon. 3. Normal appendix. Electronically signed by: Reg Anderson M.D. 11/26/2017 8:43 PM Laboratory Results 11/26/17 19:15 Red Blood Count 4.61, Mean Corpuscular Volume 85.2, Mean Corpuscular Hemoglobin 28.4, Mean Corpuscular Hemoglobin Concent 33.3, Mean Platelet Volume 9.2 11/26/17 19:15 Test 11/26/17 19:15 White Blood Count 15.18 K/uL (4.8-10.8) Red Blood Count 4.61 M/uL (4.2-5.4) Hemoglobin 13.1 g/dL (12.0-16.0) Hematocrit 39.3 % (37-47) Mean Corpuscular Volume 85.2 fL (80-100) Mean Corpuscular Hemoglobin 28.4 pg (25-34) Mean Corpuscular Hemoglobin Concent 33.3 g/dl (32-36) Platelet Count 454 K/uL (130-400) Mean Platelet Volume 9.2 fL (7.4-10.4) RDW Standard Deviation 44.1 fL (36.4-46.3) RDW Coefficient of Variation 14.4 % (11.5-14.5) Neutrophils % (Manual) 42.6 % Lymphocytes % (Manual) 49.6 % Monocytes % (Manual) 5.2 % Eosinophils % (Manual) 2.6 % Neutrophils # (Manual) 6.47 K/uL (1.4-6.5) Total Absolute Neutrophils 6.47 K/uL (1.4-6.5) Lymphocytes # (Manual) 7.53 K/uL (1.2-3.4) Total Absolute Lymphocytes 7.53 K/uL (1.2-3.4) Monocytes # (Manual) 0.79 K/uL (0.11-0.59) Eosinophils # (Manual) 0.39 K/uL (0-0.5) Red Blood Cell Morphology Unremarkable Urine Color YELLOW Urine Appearance CLEAR (CLEAR) Urine pH 5.5 (4.5-7.5) Urine Specific [place] 1.011 (1.000-1.030) Urine Protein NEG (NEG) Urine Glucose (UA) NEG (NEG) Urine Ketones NEG (NEG) Urine Occult Blood NEG (NEG) Urine Nitrite NEG (NEG) Urine Bilirubin NEG (NEG) Urine Urobilinogen NEG (NEG) Urine Leukocyte Esterase LARGE (NEG) Urine WBC (Auto) 10-30 /hpf (0-5) Urine RBC (Auto) 0-4 /hpf (0-4) Urine Hyaline Casts (Auto) 1-5 /lpf (0-5) Urine Epithelial Cells (Auto) >30 /lpf (0-5) Urine Bacteria (Auto) NEG (NEG) Anion Gap 8.0 mmol/L (3-11) Est Creatinine Clear Calc Drug Dose 71.6 ml/min Estimated GFR () 80.0 Estimated GFR (Non- 69.1 BUN/Creatinine Ratio 12.5 (10-20) Calcium Level 8.9 mg/dl (8.5-10.1) Total Bilirubin 0.4 mg/dl (0.2-1) Aspartate Amino Transf (AST/SGOT) 23 U/L (15-37) Alanine Aminotransferase (ALT/SGPT) 50 U/L (12-78) Alkaline Phosphatase 185 U/L (45-117) Total Protein 7.7 gm/dl (6.4-8.2) Albumin 3.6 gm/dl (3.4-5.0) Globulin 4.1 gm/dl (2.5-4.0) Albumin/Globulin Ratio 0.9 (0.9-2) Lipase 186 U/L (73-393) Laboratory results reviewed by me. Medications Administered Medications (Trade) Dose Ordered Sig/Antony Route Start Time Stop Time Status Last Admin Dose Admin Ketorolac Tromethamine (Toradol Inj) 30 mg NOW STAT IV 11/26/17 19:02 11/26/17 19:07 DC 11/26/17 19:18 30 MG Morphine Sulfate (MoRPHine SULFATE INJ) 4 mg NOW STAT IV 11/26/17 19:02 11/26/17 19:07 DC 11/26/17 20:09 4 MG Promethazine HCl 12.5 mg/Sodium Chloride 50.5 ml @ 204 mls/hr NOW STAT IV 11/26/17 19:02 11/26/17 19:16 DC 11/26/17 19:26 204 MLS/HR Sodium Chloride 500 ml @ 999 mls/hr Q31M STAT IV 11/26/17 19:02 11/26/17 19:32 DC 11/26/17 19:26 999 MLS/HR Senna/Docusate Sodium (Senokot S Tab) 2 tab NOW ONCE PO 11/26/17 21:00 11/26/17 21:01 DC 11/26/17 21:32 2 TAB ED Course 1899: The patient was evaluated in room A10. A complete history and physical exam was performed. 1901: Sodium Chloride 500 ml @ 999 mls/hr IV, Promethazine HCl 12.5mg/Sodium Chloride 50.5 ml @ 204 mls/hr IV, Morphine Sulfate 4mg IV, Toradol Inj 30mg IV 1944: Ioversol 100ml IV 2100: Senokot S Tab 2 tab PO 2103: Reevaluated the patient. Discussed results and discharge instructions. She verbalized understanding and agreement. The patient is ready for discharge. Medical Decision Differential Diagnosis: UTI, Renal Colic, diverticulitis, bowel obstruction, constipation, kidney infection, hernia, or musculoskeletal pain. There is a moderate leukocytosis at 15,000, the patient does carry a history of a high white blood cell count but today's value is more elevated than her baseline. This white count elevation could be consistent with her pain or possibly infection. There was no anemia. No significant electrolyte abnormality, kidney failure, hepatitis or pancreatitis. Urinalysis does not show infection. Abdominal and pelvis CT shows constipation, no diverticulitis, no bowel obstruction. On exam, the patient did not have any evidence for peritonitis. She was not febrile or toxic. Patient received IV saline, IV Toradol, IV Phenergan and IV morphine. She was eventually given 2 tablets of oral Senokot. She feels improved. I do think the patient can be discharged. Hydration was encouraged. Tylenol for pain. I will have her continue her Miralax but will increase her Senokot to try and help promote bowel movements. If worsening, she can return. Outpatient family doctor follow-up was suggested. Medication Reconcilliation Current Medication List: was personally reviewed by me Blood Pressure Screening Patient's blood pressure: Elevated blood pressure Blood pressure disposition: Elevated BP felt to be situational Impression Primary Impression: LLQ abdominal pain Additional Impressions: Leg weakness Constipation Scribe Attestation The scribe's documentation has been prepared under my direction and personally reviewed by me in its entirety. I confirm that the note above accurately reflects all work, treatment, procedures, and medical decision making performed by me. Departure Information Dispostion Home / Self-Care Referrals No Doctor, Assigned (PCP) Forms HOME CARE DOCUMENTATION FORM, IMPORTANT VISIT INFORMATION Patient Instructions My [facility] Additional Instructions continue miralax as before increase senokot to 2 tab in the am and pm to promote bowel movements stay well hydrated tylenol for pain heat to the sore area may help return for worsening symptoms, fever, or vomiting see darnell juarez for a recheck this week Problem Qualifiers
[2017-11-26 19:28] LABS: HEMATOCRIT 39.3 % (37-47); HEMOGLOBIN 13.1 g/dL (12.0-16.0); MEAN CELL VOLUME 85.2 fL (80-100); MEAN CORPUSCULAR HEMOGLOBIN 28.4 pg (25-34); MEAN CORPUSCULAR HGB CONC 33.3 g/dl (32-36); MEAN PLATELET VOLUME 9.2 fL (7.4-10.4); PLATELET COUNT 454 K/uL (130-400); RED CELL DISTRIBUTION WIDTH CV 14.4 % (11.5-14.5); RED CELL DISTRIBUTION WIDTH SD 44.1 fL (36.4-46.3); WHITE BLOOD COUNT 15.18 K/uL (4.8-10.8)
[2017-11-26 19:45] LABS: ALBUMIN 3.6 gm/dl (3.4-5.0); CALCIUM 8.9 mg/dl (8.5-10.1); CREATININE 0.91 mg/dl (0.60-1.20); POTASSIUM 3.4 mmol/L (3.5-5.1)
[2017-11-26] MEDS ORDERED: OPTIRAY 320 IV PRN (19:45)
[2017-11-26 19:47] LABS: TOTAL PROTEIN 7.7 gm/dl (6.4-8.2)
--- NOTE | 2017-11-26 20:45 | DIAGNOSTIC IMAGING REPORT ---
ABDOMEN AND PELVIS CT WITH IV CONTRAST CT DOSE: 1551.67 mGy.cm HISTORY: Generalized abdominal pain. TECHNIQUE: Multiaxial CT images of the abdomen and pelvis were performed following the use of intravenous contrast. A dose lowering technique was utilized adhering to the principles of ALARA. COMPARISON STUDY: Abdomen and pelvis CT 09/08/2017. FINDINGS: The lung bases are clear. The liver, spleen, gallbladder, pancreas, adrenal glands, and right kidney are unremarkable. No hydronephrosis. A 2.4 cm cyst within the left kidney. No retroperitoneal lymphadenopathy. The bladder is unremarkable. The uterus is surgically absent. No bowel wall thickening or obstruction. Colonic diverticulosis. Moderate to large amount well-formed stool seen within the colon. Normal appendix. IMPRESSION: 1. No bowel wall thickening or obstruction. 2. Moderate to large amount of well-formed stool seen within the colon. 3. Normal appendix. Electronically signed by: Reg Anderson M.D. 11/26/2017 8:43 PM Dictated Date/Time: 11/26/2017 8:38 PM
[2017-11-26] MEDS ORDERED: DOCUSATE SODIUM/SENNA 50/8.6MG TAB PO ONE (21:00)
[2017-11-26 21:38] VITALS: BP 124/78; PULSE 104; O2SAT 93
== END 2017-11-26 21:40 | disposition home or self-care (01) ==
LOC: C.EDB 18:28 → C.EDA 21:40
DX: R10.32 Left lower quadrant pain (principal); R29.898 Other symptoms and signs involving the musculoskeletal system; K59.00 Constipation, unspecified; E11.43 Type 2 diabetes mellitus with diabetic autonomic (poly)neuropathy; J45.40 Moderate persistent asthma, uncomplicated; K21.9 Gastro-esophageal reflux disease without esophagitis; Z87.891 Personal history of nicotine dependence; Z98.51 Tubal ligation status; Z90.710 Acquired absence of both cervix and uterus; Z90.89 Acquired absence of other organs; Z79.4 Long term (current) use of insulin; Z79.82 Long term (current) use of aspirin; Z79.84 Long term (current) use of oral hypoglycemic drugs; Z79.899 Other long term (current) drug therapy

== ENCOUNTER 2017-12-11 15:56 | Emergency (ER) | payer OTHER ==
[~2017-12-11] VITALS: Ht 154.9 cm; Wt 98.2 kg
[2017-12-11 16:05] VITALS: TEMP 36.6; Ht 154.9 cm; Wt 98.2 kg
[2017-12-11] MEDS ORDERED: ONDANSETRON INJ 2 MG/ML 2 ML VIAL IV STA (17:05)
[2017-12-11] MEDS ORDERED: SODIUM CHLORIDE 0.9% 1000ML 1,000 ML IV ONE (17:15)
[2017-12-11 17:26] LABS: HEMATOCRIT 38.9 % (37-47); HEMOGLOBIN 13.1 g/dL (12.0-16.0); MEAN CELL VOLUME 84.7 fL (80-100); MEAN CORPUSCULAR HEMOGLOBIN 28.5 pg (25-34); MEAN CORPUSCULAR HGB CONC 33.7 g/dl (32-36); MEAN PLATELET VOLUME 9.2 fL (7.4-10.4); PLATELET COUNT 417 K/uL (130-400); RED CELL DISTRIBUTION WIDTH CV 14.5 % (11.5-14.5); RED CELL DISTRIBUTION WIDTH SD 44.4 fL (36.4-46.3)
--- NOTE | 2017-12-11 17:27 | EMERGENCY ROOM VISIT NOTE ---
ED Visit Note First contact with patient: 17:01 I have seen and examined this patient with Renato Lugo and generally agree with the treatment plan as discussed. Problem List Medical Problems: (1) Cervicalgia Status: Chronic (2) Depression with anxiety Status: Chronic (3) DM type 2 (diabetes mellitus, type 2) Status: Chronic (4) Gastroparesis Status: Chronic (5) GERD (gastroesophageal reflux disease) Status: Chronic (6) IBS (irritable bowel syndrome) Status: Chronic (7) Moderate persistent asthma Status: Chronic (8) Obesity Status: Chronic Surgical Problems: (1) H/O dilation and curettage Status: Chronic (2) H/O: hysterectomy Permanent Comment: COURT with SBO performed by Dr. Tanner 2007 Status: Chronic (3) History of tonsillectomy and adenoidectomy Status: Chronic (4) History of tubal ligation Status: Chronic Social History Problems: (1) Herpes simplex Status: Resolved Current/Historical Medications Scheduled Amitriptyline HCl (Amitriptyline HCl), 100 MG PO HS Aspirin (Aspirin), 81 MG PO DAILY Atorvastatin (Lipitor), 80 MG PO HS Buspirone Hcl (Buspirone Hcl), 5 MG PO BID Duloxetine HCl (Duloxetine HCl), 60 MG PO DAILY Esomeprazole Magnesium (Esomeprazole Magnesium), 40 MG PO QAM Estradiol Vaginal (Estrace), 1 APPLN PV 2XWK Fluticasone Prop/Salmeterol (Advair Diskus 500/50 60 Dose), 1 PUFF INH BID Fluticasone Propionate (Fluticasone Propionate), 1 SPRAY JG BID Gabapentin (Gabapentin), 400 MG PO HS Hydroxyzine Pamoate (Vistaril), 25 MG PO BID Insulin Detemir (Levemir Flextouch), 5 UNITS SC HS Lisinopril (Lisinopril), 2.5 MG PO DAILY Metformin HCl (Metformin HCl), 500 MG PO BIDM Metoclopramide Hcl (Reglan), 10 MG PO ACHS Mirabegron (Myrbetriq Er), 25 MG PO QAM Montelukast Sod (Montelukast Sodium), 10 MG PO DAILY Multivitamin (Multivitamin), 1 TAB PO DAILY Oxybutynin Chloride (Ditropan), 10 MG PO DAILY Polyethylene (Polyethylene Glycol 3350), 17 GM PO QAM Potassium Gluconate (Potassium Gluconate), 1,190 MG PO DAILY Ranitidine HCl (Ranitidine HCl), 150 MG PO HS Senna/Docusate Sod (Senokot S), 1 TAB PO QAM Scheduled PRN Dicyclomine Hcl (Dicyclomine Hcl), 10 MG PO QID PRN for Moderate Pain Ipratropium-Albuterol (Duoneb), 1 TREATMENT INH QID PRN for SOB/Wheezing Melatonin (Melatonin), 10 MG PO HS PRN for Sleep Promethazine HCl (Promethazine HCl), 25 MG PO Q6H PRN for Nausea Sucralfate (Sucralfate), 1 GM PO ACHS PRN for Stomach Pain Valacyclovir HCl (Valacyclovir HCl), 500 MG PO TID PRN for Outbreaks Allergies Coded Allergies: Hydromorphone (Verified Allergy, Severe, itching, 10/15/17) Ondansetron (Verified Allergy, Intermediate, hives; RASH, 10/15/17) Sulfa Antibiotics (Verified Allergy, Intermediate, rash, 10/15/17) Aminoglycosides (Verified Allergy, Unknown, >, 10/15/17) Bacitracin (Verified Allergy, Unknown, >, 10/15/17) Ceftriaxone (Verified Allergy, Unknown, Rash, hives and itchiness., ) Cephalexin (Verified Allergy, Unknown, hives, 10/15/17) Latex1 -Allergic Contact Dermititis (Verified Allergy, Unknown, 10/15/17) Neomycin (Verified Allergy, Unknown, >, 10/15/17) Polymyxin B (Verified Allergy, Unknown, >, 10/15/17) Sulfamethoxazole w/Trimethoprim (Verified Allergy, Unknown, Unknown, 10/15) Vital Signs Date Time Temp Pulse Resp B/P (MAP) Pulse Ox O2 Delivery O2 Flow Rate FiO2 12/11/17 16:05 36.6 96 17 118/82 97 Room Air Laboratory Results 12/11/17 17:10 Red Blood Count 4.59, Mean Corpuscular Volume 84.7, Mean Corpuscular Hemoglobin 28.5, Mean Corpuscular Hemoglobin Concent 33.7, Mean Platelet Volume 9.2 Test 12/11/17 17:05 12/11/17 17:10 White Blood Count 15.10 K/uL (4.8-10.8) Red Blood Count 4.59 M/uL (4.2-5.4) Hemoglobin 13.1 g/dL (12.0-16.0) Hematocrit 38.9 % (37-47) Mean Corpuscular Volume 84.7 fL (80-100) Mean Corpuscular Hemoglobin 28.5 pg (25-34) Mean Corpuscular Hemoglobin Concent 33.7 g/dl (32-36) Platelet Count 417 K/uL (130-400) Mean Platelet Volume 9.2 fL (7.4-10.4) RDW Standard Deviation 44.4 fL (36.4-46.3) RDW Coefficient of Variation 14.5 % (11.5-14.5) Departure Information Referrals Cipriano Peña M.D. (MEDICAL) (PCP) Patient Instructions My [facility]
[2017-12-11 17:45] LABS: ALBUMIN 3.6 gm/dl (3.4-5.0); BASO % 0.2 %; BASO ABS # 0.03 K/uL (0-0.2); CALCIUM 9.1 mg/dl (8.5-10.1); CREATININE 0.83 mg/dl (0.60-1.20); EOS % 2.6 %; IG# 0.04 K/uL (0.00-0.02); LYMPH % 41.3 %; LYMPH ABS # 6.24 K/uL (1.2-3.4); MONO ABS # 1.06 K/uL (0.11-0.59); NEUT % 48.6 %; NEUT ABS # 7.33 K/uL (1.4-6.5); POTASSIUM 3.8 mmol/L (3.5-5.1)
[2017-12-11 17:48] LABS: TOTAL PROTEIN 7.3 gm/dl (6.4-8.2)
--- NOTE | 2017-12-11 18:08 | DIAGNOSTIC IMAGING REPORT ---
CHEST 2 VIEWS ROUTINE CLINICAL HISTORY: Cough. Chest pain dyspnea COMPARISON STUDY: 10/06/2017 FINDINGS: The bones soft tissues and hemidiaphragms are normal. The cardiomediastinal silhouette is normal. The lungs are clear. The pulmonary vasculature is normal. IMPRESSION: Negative chest. The above report was generated using voice recognition software. It may contain grammatical, syntax or spelling errors. Electronically signed by: Jose Collins M.D. 12/11/2017 6:07 PM Dictated Date/Time: 12/11/2017 6:07 PM
[2017-12-11 18:47] VITALS: BP 121/75; PULSE 89; O2SAT 97
--- NOTE | 2017-12-11 19:59 | EMERGENCY ROOM VISIT NOTE ---
History First contact with patient: 17:01 Chief Complaint: CHEST PAIN Stated Complaint: CHEST AND BACK PAIN Nursing Triage Summary: Pt c/o chest pain and back pain Pain began 2:30pm mid chest to back. Nausea SOB History of Present Illness The patient is a 57 year old female who presents to the Emergency Room with complaints of chest and back pain that began earlier today while she was at [employer]. The patient states that she was having some nausea symptoms at [employer] this morning, coughed 2 or 3 times, and then had pain in her chest and back. She has not had fever or chills. No difficulty breathing. No abdominal pain or vomiting. The patient is well-known to this facility due to frequency of visits. She is diabetic and states her sugars have been doing well. She rates her overall discomfort a 2/10. Review of Systems More than 10 systems were reviewed and otherwise negative with the exception of history of present illness. Past Medical/Surgical History Medical Problems: (1) Abdominal pain (2) Cervicalgia (3) Depression with anxiety (4) DM type 2 (diabetes mellitus, type 2) (5) Gastroparesis (6) GERD (gastroesophageal reflux disease) (7) IBS (irritable bowel syndrome) (8) Moderate persistent asthma (9) Obesity Surgical Problems: (1) H/O dilation and curettage (2) H/O: hysterectomy (3) History of tonsillectomy and adenoidectomy (4) History of tubal ligation Social History Problems: (1) Herpes simplex Family History FH: cancer FATHER Heart disease Social History Smoking Status: Former Smoker Alcohol Use: none Drug Use: none Housing Status: lives with significant other Occupation Status: employed Current/Historical Medications Scheduled Amitriptyline HCl (Amitriptyline HCl), 100 MG PO HS Aspirin (Aspirin), 81 MG PO DAILY Atorvastatin (Lipitor), 80 MG PO HS Buspirone Hcl (Buspirone Hcl), 5 MG PO BID Duloxetine HCl (Duloxetine HCl), 60 MG PO DAILY Esomeprazole Magnesium (Esomeprazole Magnesium), 40 MG PO QAM Estradiol Vaginal (Estrace), 1 APPLN PV 2XWK Fluticasone Prop/Salmeterol (Advair Diskus 500/50 60 Dose), 1 PUFF INH BID Fluticasone Propionate (Fluticasone Propionate), 1 SPRAY JG BID Gabapentin (Gabapentin), 400 MG PO HS Hydroxyzine Pamoate (Vistaril), 25 MG PO BID Insulin Detemir (Levemir Flextouch), 5 UNITS SC HS Lisinopril (Lisinopril), 2.5 MG PO DAILY Metformin HCl (Metformin HCl), 500 MG PO BIDM Metoclopramide Hcl (Reglan), 10 MG PO ACHS Mirabegron (Myrbetriq Er), 25 MG PO QAM Montelukast Sod (Montelukast Sodium), 10 MG PO DAILY Multivitamin (Multivitamin), 1 TAB PO DAILY Oxybutynin Chloride (Ditropan), 10 MG PO DAILY Polyethylene (Polyethylene Glycol 3350), 17 GM PO QAM Potassium Gluconate (Potassium Gluconate), 1,190 MG PO DAILY Ranitidine HCl (Ranitidine HCl), 150 MG PO HS Senna/Docusate Sod (Senokot S), 1 TAB PO QAM Scheduled PRN Dicyclomine Hcl (Dicyclomine Hcl), 10 MG PO QID PRN for Moderate Pain Ipratropium-Albuterol (Duoneb), 1 TREATMENT INH QID PRN for SOB/Wheezing Melatonin (Melatonin), 10 MG PO HS PRN for Sleep Promethazine HCl (Promethazine HCl), 25 MG PO Q6H PRN for Nausea Sucralfate (Sucralfate), 1 GM PO ACHS PRN for Stomach Pain Valacyclovir HCl (Valacyclovir HCl), 500 MG PO TID PRN for Outbreaks Physical Exam Vital Signs Date Time Temp Pulse Resp B/P (MAP) Pulse Ox O2 Delivery O2 Flow Rate FiO2 12/11/17 18:47 89 18 121/75 97 12/11/17 17:43 80 20 119/71 97 Room Air 12/11/17 16:05 36.6 96 17 118/82 97 Room Air Physical Exam VITALS: Vitals are noted on the nurse's note and reviewed by myself. Vital signs stable. GENERAL: Well-developed, well-nourished, white female, who is in no acute distress and resting comfortably. Patient is cooperative with the examination. HEAD: Normocephalic atraumatic. EARS: External ear normal. External auditory canals clear, tympanic membranes pearly ramirez without erythema or effusion bilaterally. EYES: Pupils equal round and reactive to light and accommodation. Conjunctivae without injection, sclerae without icterus. Extraocular movements intact. NOSE: Patent, turbinates without inflammation or discharge. MOUTH: Mucous membranes moist. Tonsils are not enlarged. Pharynx without erythema, blood, or exudate. Uvula midline. Airway patent. NECK: Supple without nuchal rigidity. No lymphadenopathy. No thyromegaly. Cervical spine is nontender. HEART: Regular rate and rhythm without murmurs gallops or rubs. LUNGS: Clear to auscultation bilaterally without wheezes, rales or rhonchi. No retractions or accessory muscle use. ABDOMEN: Positive normal bowel sounds x 4. Soft, nontender, without masses or organomegaly. No guarding or rebound tenderness. Medical Decision & Procedures ER Provider Diagnostic Interpretation: CHEST 2 VIEWS ROUTINE CLINICAL HISTORY: Cough. Chest pain dyspnea COMPARISON STUDY: 10/06/2017 FINDINGS: The bones soft tissues and hemidiaphragms are normal. The cardiomediastinal silhouette is normal. The lungs are clear. The pulmonary vasculature is normal. IMPRESSION: Negative chest. Laboratory Results 12/11/17 17:10 Red Blood Count 4.59, Mean Corpuscular Volume 84.7, Mean Corpuscular Hemoglobin 28.5, Mean Corpuscular Hemoglobin Concent 33.7, Mean Platelet Volume 9.2, Neutrophils (%) (Auto) 48.6, Lymphocytes (%) (Auto) 41.3, Monocytes (%) (Auto) 7.0, Eosinophils (%) (Auto) 2.6, Basophils (%) (Auto) 0.2, Neutrophils # (Auto) 7.33, Lymphocytes # (Auto) 6.24, Monocytes # (Auto) 1.06, Eosinophils # (Auto) 0.40, Basophils # (Auto) 0.03 12/11/17 17:10 Test 12/11/17 17:10 12/11/17 17:17 White Blood Count 15.10 K/uL (4.8-10.8) Red Blood Count 4.59 M/uL (4.2-5.4) Hemoglobin 13.1 g/dL (12.0-16.0) Hematocrit 38.9 % (37-47) Mean Corpuscular Volume 84.7 fL (80-100) Mean Corpuscular Hemoglobin 28.5 pg (25-34) Mean Corpuscular Hemoglobin Concent 33.7 g/dl (32-36) Platelet Count 417 K/uL (130-400) Mean Platelet Volume 9.2 fL (7.4-10.4) Neutrophils (%) (Auto) 48.6 % Lymphocytes (%) (Auto) 41.3 % Monocytes (%) (Auto) 7.0 % Eosinophils (%) (Auto) 2.6 % Basophils (%) (Auto) 0.2 % Neutrophils # (Auto) 7.33 K/uL (1.4-6.5) Lymphocytes # (Auto) 6.24 K/uL (1.2-3.4) Monocytes # (Auto) 1.06 K/uL (0.11-0.59) Eosinophils # (Auto) 0.40 K/uL (0-0.5) Basophils # (Auto) 0.03 K/uL (0-0.2) RDW Standard Deviation 44.4 fL (36.4-46.3) RDW Coefficient of Variation 14.5 % (11.5-14.5) Immature Granulocyte % (Auto) 0.3 % Immature Granulocyte # (Auto) 0.04 K/uL (0.00-0.02) Red Blood Cell Morphology Unremarkable Urine Color YELLOW Urine Appearance CLEAR (CLEAR) Urine pH 6.0 (4.5-7.5) Urine Specific Stover 1.008 (1.000-1.030) Urine Protein NEG (NEG) Urine Glucose (UA) NEG (NEG) Urine Ketones NEG (NEG) Urine Occult Blood NEG (NEG) Urine Nitrite NEG (NEG) Urine Bilirubin NEG (NEG) Urine Urobilinogen NEG (NEG) Urine Leukocyte Esterase LARGE (NEG) Urine WBC (Auto) 10-30 /hpf (0-5) Urine RBC (Auto) 0-4 /hpf (0-4) Urine Hyaline Casts (Auto) 0 /lpf (0-5) Urine Epithelial Cells (Auto) >30 /lpf (0-5) Urine Bacteria (Auto) NEG (NEG) Anion Gap 12.0 mmol/L (3-11) Est Creatinine Clear Calc Drug Dose 78.3 ml/min Estimated GFR () 89.5 Estimated GFR (Non- 77.2 BUN/Creatinine Ratio 14.8 (10-20) Calcium Level 9.1 mg/dl (8.5-10.1) Total Bilirubin 0.3 mg/dl (0.2-1) Aspartate Amino Transf (AST/SGOT) 24 U/L (15-37) Alanine Aminotransferase (ALT/SGPT) 61 U/L (12-78) Alkaline Phosphatase 148 U/L (45-117) Total Protein 7.3 gm/dl (6.4-8.2) Albumin 3.6 gm/dl (3.4-5.0) Globulin 3.7 gm/dl (2.5-4.0) Albumin/Globulin Ratio 1.0 (0.9-2) Bedside Troponin I < 0.030 ng/ml (0-0.045) Medications Administered Medications (Trade) Dose Ordered Sig/Antony Route Start Time Stop Time Status Last Admin Dose Admin Sodium Chloride 1,000 ml @ 999 mls/hr Q1H1M ONCE IV 12/11/17 17:15 12/11/17 18:15 DC 12/11/17 17:15 999 MLS/HR ED Course Physical exam and history were performed. Nursing notes, EMR, and Medication List were personally reviewed. Patient appears to have chest discomfort after coughing at [employer] today. IV access was established and labs were obtained. EKG was normal sinus rhythm without ST elevation per my interpretation. She was placed on the phototypesetting equipment monitor and hydrated with normal saline. X-rays performed. The patient's blood work is as above and was reviewed. She does have a slightly elevated white blood cell count, however this is essentially chronic for her and not different from her baseline. She is without significant anemia or gross electrolyte imbalance. Troponin 1 is negative. Chest x-ray is without acute findings. The case was discussed with my attending physician, Dr. Pearl, who also independently evaluated the patient. We feel that she is stable for discharge home with follow-up at her primary care physician's office. She was otherwise invited back to the ER with any new, worsening, or concerning symptoms. The chart was completed utilizing [employer] Voice Recognition Software. Grammatical errors, random word insertions, pronoun errors, and incomplete sentences are an occasional consequence of this system due to software limitations, ambient noise, and hardware issues. Any formal questions or concerns about the content, text, or information contained within the body of this dictation should be directly addressed to the provider for clarification. . Medical Decision Differential diagnosis includes, but is not limited to: Myocardial infarction, dysrhythmia, pericarditis, pneumothorax, aortic aneurysm/dissection, DVT/PE, anxiety, GERD, PUD, electrolyte imbalance, thyroid disorder, pneumonia, bronchitis, pancreatitis, and others Impression Primary Impression: Non-cardiac chest pain Departure Information Dispostion Home / Self-Care Condition FAIR Forms Call Back Authorization, HOME CARE DOCUMENTATION FORM, IMPORTANT VISIT INFORMATION Patient Instructions My [facility] Additional Instructions You were seen and evaluated today on an emergency basis only. This is not a substitute for, or an effort to provide, complete comprehensive medical care. It is not possible to recognize and treat all injuries or illnesses in a single emergency department visit. For this reason it is recommended that you followup with your primary care physician this week for recheck. You are welcome to return to the emergency department anytime with new, worsening, or concerning symptoms.
== END 2017-12-11 18:41 | disposition home or self-care (01) ==
LOC: C.EDB 15:57 → C.EDA 18:41
DX: R07.89 Other chest pain (principal); M54.9 Dorsalgia, unspecified; E11.43 Type 2 diabetes mellitus with diabetic autonomic (poly)neuropathy; F41.8 Other specified anxiety disorders; K21.9 Gastro-esophageal reflux disease without esophagitis; K58.9 Irritable bowel syndrome, unspecified; E66.9 Obesity, unspecified; J45.40 Moderate persistent asthma, uncomplicated; Z90.710 Acquired absence of both cervix and uterus; Z98.51 Tubal ligation status; Z80.9 Family history of malignant neoplasm, unspecified; Z79.82 Long term (current) use of aspirin; Z79.899 Other long term (current) drug therapy

== ENCOUNTER 2017-12-20 16:46 | Emergency (ER) | payer OTHER ==
[~2017-12-20] VITALS: Ht 154.9 cm; Wt 99.7 kg
[2017-12-20 16:52] VITALS: TEMP 36.9; Ht 154.9 cm; Wt 99.7 kg
--- NOTE | 2017-12-20 17:28 | EMERGENCY ROOM VISIT NOTE ---
ED Visit Note First contact with patient: 16:57 CHIEF COMPLAINT: Fall, left ankle, lower leg, knee, and hip pain HISTORY OF PRESENT ILLNESS: This 57-year-old female patient presents to the emergency department approximately 5 hours after sustaining an injury to the left ankle, hip, lower leg, and knee after falling. Patient states her dog must have urinated on the hardwood floor, the patient did not realize it was wet. She states she slept, and her left ankle and knee landed underneath her body. She states she struck her left hip on the floor. She denies any head injury. The patient denies swelling or bruising. There is pain in the medial ankle, throughout the tibia and fibula, the lateral knee, and in the left hip joint. They rate the pain as sharp and 9/10. The patient states they are able to walk on it. No numbness or tingling. No previous injuries to this knee. No ankle, foot or hip pain. The patient has taken 1 dose of Tylenol without relief of her pain. REVIEW OF SYSTEMS: A 6 system review of systems was completed with positives and pertinent negatives listed in the HPI. ALLERGIES: Latex, bacitracin, Keflex, Dilaudid, Bactrim, Keflex and Zofran, aminoglycosides PMH: Hypertension, anxiety, depression, hyperlipidemia, diabetes SOCIAL HISTORY: The patient lives locally with family. She denies drug, alcohol , tobacco use. PHYSICAL EXAM: Vital Signs: Reviewed Nurse's notes, vital signs stable. GENERAL : This is a 57-year-old obese white female, no acute distress, but appears in pain, well-developed, well-nourished. MENTAL STATUS: Alert, oriented to person place and time, and cooperative. MUSCULOSKELETAL: The left ankle is not swollen, but is tender over the medial malleolus, but the skin is intact and there is no ligamentous instability. There is no fifth metatarsal tenderness. There is no tenderness over the rest of the foot. There is no calf tenderness. The tibia/fibula are tender on palpation. There is no visual deformity. The foot and toes are warm and well-perfused. The left knee is mildly swollen. There is no ecchymosis. There is no joint effusion present. The patient is tender on the lateral aspect. There is no joint line tenderness. The patella does appropriately subluxate. Range of motion is full, however tender. Strength of the quads and hamstrings is 5/5. Erica's is negative. Shivam's and Anterior Drawer tests are negative. There is no laxity with varus and valgus stressing. The foot and toes are warm and well-perfused. Dorsalis pedis pulse 2+. Sensation to pain and light touch is intact. Capillary refill less than 2 seconds. The left hip is tender on palpation at the hip joint. The patient has full range of motion. There is no obvious contusion, bruising, or discoloration. There is no erythema or ecchymosis. RADIOLOGY: LEFT ANKLE 3 VIEWS; LEFT TIBIA AND FIBULA 2 VIEWS CLINICAL HISTORY: Fall with left leg injury. FINDINGS: AP and lateral views of the left tibia and fibula with 3 views of the left ankle are correlated with left ankle radiographs dated 06/06/2017. The skeletal structures are well mineralized. There is no radiographic evidence of left tibial or fibular fracture. No fracture is seen at the ankle joint. The ankle mortise is intact. The knee joint is grossly maintained. There is no ankle joint effusion. Mild soft tissue edema is present around the ankle. IMPRESSION: 1. There is no radiographic evidence of left tibial or fibular fracture. 2. No fracture is seen at the ankle joint. 3. Soft tissue swelling is noted around the ankle. Electronically signed by: Alfonso Reid M.D. 12/20/2017 5:59 PM Dictated Date/Time: 12/20/2017 5:57 PM L KNEE 3 VIEWS CLINICAL HISTORY: lateral left knee pain s/p fall trauma. Pain. COMPARISON: None. DISCUSSION: The bones and joint spaces appear intact. There is no evidence of fracture, dislocation or bony disease. There is no evidence for soft tissue swelling. IMPRESSION: Negative study. The above report was generated using voice recognition software. It may contain grammatical, syntax or spelling errors. Electronically signed by: Jose Collins M.D. 12/20/2017 6:04 PM Dictated Date/Time: 12/20/2017 6:04 PM L PELVIS/UNILATERAL HIP 2-3VIEWS CLINICAL HISTORY: left hip pain s/p fall trauma. Pain. COMPARISON: None. DISCUSSION: The bones and joint spaces appear intact. There is no evidence of fracture, dislocation or bony disease. There is no evidence for soft tissue swelling. IMPRESSION: Negative study. The above report was generated using voice recognition software. It may contain grammatical, syntax or spelling errors. Electronically signed by: Jose Collins M.D. 12/20/2017 6:03 PM Dictated Date/Time: 12/20/2017 6:02 PM EMERGENCY DEPARTMENT COURSE: I examined the patient. X-rays of the left ankle , tib/fib, knee, and pelvis/hip were reviewed by myself and read by radiology and reveal no acute fracture or bony abnormality. I offered the patient a cane or walker, and she states she has these at home. Discharge instructions reviewed. The patient was discharged home in good condition. I attest that I have personally reviewed the patient's current medication list. Patient was found to have normal blood pressure on screening and does not require follow-up. Differential diagnosis includes fracture, sprain, strain, contusion, stress fracture, malignancy, and others DIAGNOSIS: Multiple contusions, fall Problem List Medical Problems: (1) Cervicalgia Status: Chronic (2) Depression with anxiety Status: Chronic (3) DM type 2 (diabetes mellitus, type 2) Status: Chronic (4) Gastroparesis Status: Chronic (5) GERD (gastroesophageal reflux disease) Status: Chronic (6) IBS (irritable bowel syndrome) Status: Chronic (7) Moderate persistent asthma Status: Chronic (8) Obesity Status: Chronic Surgical Problems: (1) H/O dilation and curettage Status: Chronic (2) H/O: hysterectomy Permanent Comment: COURT with SBO performed by Dr. Tanner 2007 Status: Chronic (3) History of tonsillectomy and adenoidectomy Status: Chronic (4) History of tubal ligation Status: Chronic Social History Problems: (1) Herpes simplex Status: Resolved Current/Historical Medications Scheduled Amitriptyline HCl (Amitriptyline HCl), 100 MG PO HS Aspirin (Aspirin), 81 MG PO DAILY Atorvastatin (Lipitor), 80 MG PO HS Buspirone Hcl (Buspirone Hcl), 5 MG PO BID Duloxetine HCl (Duloxetine HCl), 60 MG PO DAILY Esomeprazole Magnesium (Esomeprazole Magnesium), 40 MG PO QAM Estradiol Vaginal (Estrace), 1 APPLN PV 2XWK Fluticasone Prop/Salmeterol (Advair Diskus 500/50 60 Dose), 1 PUFF INH BID Fluticasone Propionate (Fluticasone Propionate), 1 SPRAY JG BID Gabapentin (Gabapentin), 400 MG PO HS Hydroxyzine Pamoate (Vistaril), 25 MG PO BID Insulin Detemir (Levemir Flextouch), 5 UNITS SC HS Lisinopril (Lisinopril), 2.5 MG PO DAILY Metformin HCl (Metformin HCl), 500 MG PO BIDM Metoclopramide Hcl (Reglan), 10 MG PO ACHS Mirabegron (Myrbetriq Er), 25 MG PO QAM Montelukast Sod (Montelukast Sodium), 10 MG PO DAILY Multivitamin (Multivitamin), 1 TAB PO DAILY Oxybutynin Chloride (Ditropan), 10 MG PO DAILY Polyethylene (Polyethylene Glycol 3350), 17 GM PO QAM Potassium Gluconate (Potassium Gluconate), 1,190 MG PO DAILY Ranitidine HCl (Ranitidine HCl), 150 MG PO HS Senna/Docusate Sod (Senokot S), 1 TAB PO QAM Scheduled PRN Dicyclomine Hcl (Dicyclomine Hcl), 10 MG PO QID PRN for Moderate Pain Ipratropium-Albuterol (Duoneb), 1 TREATMENT INH QID PRN for SOB/Wheezing Melatonin (Melatonin), 10 MG PO HS PRN for Sleep Promethazine HCl (Promethazine HCl), 25 MG PO Q6H PRN for Nausea Sucralfate (Sucralfate), 1 GM PO ACHS PRN for Stomach Pain Valacyclovir HCl (Valacyclovir HCl), 500 MG PO TID PRN for Outbreaks Allergies Coded Allergies: Hydromorphone (Verified Allergy, Severe, itching, 10/15/17) Ondansetron (Verified Allergy, Intermediate, hives; RASH, 10/15/17) Sulfa Antibiotics (Verified Allergy, Intermediate, rash, 10/15/17) Aminoglycosides (Verified Allergy, Unknown, >, 10/15/17) Bacitracin (Verified Allergy, Unknown, >, 10/15/17) Ceftriaxone (Verified Allergy, Unknown, Rash, hives and itchiness., ) Cephalexin (Verified Allergy, Unknown, hives, 12/16/17) Latex1 -Allergic Contact Dermititis (Verified Allergy, Unknown, 10/15/17) Neomycin (Verified Allergy, Unknown, >, 10/15/17) Polymyxin B (Verified Allergy, Unknown, >, 10/15/17) Sulfamethoxazole w/Trimethoprim (Verified Allergy, Unknown, Unknown, 10/15) Vital Signs Date Time Temp Pulse Resp B/P (MAP) Pulse Ox O2 Delivery O2 Flow Rate FiO2 12/20/17 18:30 71 18 127/81 97 12/20/17 16:52 36.9 100 18 129/91 98 Room Air Departure Information Impression Primary Impression: Fall Additional Impression: Contusion of multiple sites Dispostion Home / Self-Care Condition GOOD Referrals Cipriano Peña M.D. (MEDICAL) (PCP) Patient Instructions ED Contusion Lower Ext, My [facility] Additional Instructions You were seen in the ED today for fall with multiple contusions. X-rays ruled out acute fractures or other acute abnormalities. Acetaminophen(Tylenol) may be used for fever or pain. Use 1000mg every six hours as needed. Avoid using more than 4000mg in a 24 hour period. Ice compresses for 20 minutes at a time four times daily for 2-3 days. Use the cane or walker you have a home to help with ambulation for the next few days, as I suspect you will be feeling sore. Rest and elevate your injury. Do not get the splint wet. If your splint feels excessively tight, you have worsening pain, develop numbness or tingling, or your digits appear blue, loosen the karon wrap. Then reapply the karon wrap gently without removing the splint. If your symptoms are not quickly relieved return to the ER for re- evaluation. Return to the ER immediately for any numbness, tingling, severe pain, extreme swelling in the extremity or as needed. Follow-up with your primary care physician in 2 to 3 days for a recheck of your current condition. Problem Qualifiers Primary Impression: Fall Encounter type: initial encounter Qualified Codes: W19.XXXA - Unspecified fall, initial encounter
--- NOTE | 2017-12-20 18:00 | DIAGNOSTIC IMAGING REPORT ---
LEFT ANKLE 3 VIEWS; LEFT TIBIA AND FIBULA 2 VIEWS CLINICAL HISTORY: Fall with left leg injury. FINDINGS: AP and lateral views of the left tibia and fibula with 3 views of the left ankle are correlated with left ankle radiographs dated 06/06/2017. The skeletal structures are well mineralized. There is no radiographic evidence of left tibial or fibular fracture. No fracture is seen at the ankle joint. The ankle mortise is intact. The knee joint is grossly maintained. There is no ankle joint effusion. Mild soft tissue edema is present around the ankle. IMPRESSION: 1. There is no radiographic evidence of left tibial or fibular fracture. 2. No fracture is seen at the ankle joint. 3. Soft tissue swelling is noted around the ankle. Electronically signed by: Alfonso Reid M.D. 12/20/2017 5:59 PM Dictated Date/Time: 12/20/2017 5:57 PM
--- NOTE | 2017-12-20 18:05 | DIAGNOSTIC IMAGING REPORT ---
L PELVIS/UNILATERAL HIP 2-3VIEWS CLINICAL HISTORY: left hip pain s/p fall trauma. Pain. COMPARISON: None. DISCUSSION: The bones and joint spaces appear intact. There is no evidence of fracture, dislocation or bony disease. There is no evidence for soft tissue swelling. IMPRESSION: Negative study. The above report was generated using voice recognition software. It may contain grammatical, syntax or spelling errors. Electronically signed by: Jose Collins M.D. 12/20/2017 6:03 PM Dictated Date/Time: 12/20/2017 6:02 PM
--- NOTE | 2017-12-20 18:05 | DIAGNOSTIC IMAGING REPORT ---
L KNEE 3 VIEWS CLINICAL HISTORY: lateral left knee pain s/p fall trauma. Pain. COMPARISON: None. DISCUSSION: The bones and joint spaces appear intact. There is no evidence of fracture, dislocation or bony disease. There is no evidence for soft tissue swelling. IMPRESSION: Negative study. The above report was generated using voice recognition software. It may contain grammatical, syntax or spelling errors. Electronically signed by: Jose Collins M.D. 12/20/2017 6:04 PM Dictated Date/Time: 12/20/2017 6:04 PM
--- NOTE | 2017-12-20 18:21 | EMERGENCY ROOM VISIT NOTE ---
ED Visit Note First contact with patient: 16:57 I have seen and examined this patient with Savana Spencer and agree with the treatment plan. Problem List Medical Problems: (1) Cervicalgia Status: Chronic (2) Depression with anxiety Status: Chronic (3) DM type 2 (diabetes mellitus, type 2) Status: Chronic (4) Gastroparesis Status: Chronic (5) GERD (gastroesophageal reflux disease) Status: Chronic (6) IBS (irritable bowel syndrome) Status: Chronic (7) Moderate persistent asthma Status: Chronic (8) Obesity Status: Chronic Surgical Problems: (1) H/O dilation and curettage Status: Chronic (2) H/O: hysterectomy Permanent Comment: COURT with SBO performed by Dr. Tanner 2007 Status: Chronic (3) History of tonsillectomy and adenoidectomy Status: Chronic (4) History of tubal ligation Status: Chronic Social History Problems: (1) Herpes simplex Status: Resolved Current/Historical Medications Scheduled Amitriptyline HCl (Amitriptyline HCl), 100 MG PO HS Aspirin (Aspirin), 81 MG PO DAILY Atorvastatin (Lipitor), 80 MG PO HS Buspirone Hcl (Buspirone Hcl), 5 MG PO BID Duloxetine HCl (Duloxetine HCl), 60 MG PO DAILY Esomeprazole Magnesium (Esomeprazole Magnesium), 40 MG PO QAM Estradiol Vaginal (Estrace), 1 APPLN PV 2XWK Fluticasone Prop/Salmeterol (Advair Diskus 500/50 60 Dose), 1 PUFF INH BID Fluticasone Propionate (Fluticasone Propionate), 1 SPRAY JG BID Gabapentin (Gabapentin), 400 MG PO HS Hydroxyzine Pamoate (Vistaril), 25 MG PO BID Insulin Detemir (Levemir Flextouch), 5 UNITS SC HS Lisinopril (Lisinopril), 2.5 MG PO DAILY Metformin HCl (Metformin HCl), 500 MG PO BIDM Metoclopramide Hcl (Reglan), 10 MG PO ACHS Mirabegron (Myrbetriq Er), 25 MG PO QAM Montelukast Sod (Montelukast Sodium), 10 MG PO DAILY Multivitamin (Multivitamin), 1 TAB PO DAILY Oxybutynin Chloride (Ditropan), 10 MG PO DAILY Polyethylene (Polyethylene Glycol 3350), 17 GM PO QAM Potassium Gluconate (Potassium Gluconate), 1,190 MG PO DAILY Ranitidine HCl (Ranitidine HCl), 150 MG PO HS Senna/Docusate Sod (Senokot S), 1 TAB PO QAM Scheduled PRN Dicyclomine Hcl (Dicyclomine Hcl), 10 MG PO QID PRN for Moderate Pain Ipratropium-Albuterol (Duoneb), 1 TREATMENT INH QID PRN for SOB/Wheezing Melatonin (Melatonin), 10 MG PO HS PRN for Sleep Promethazine HCl (Promethazine HCl), 25 MG PO Q6H PRN for Nausea Sucralfate (Sucralfate), 1 GM PO ACHS PRN for Stomach Pain Valacyclovir HCl (Valacyclovir HCl), 500 MG PO TID PRN for Outbreaks Allergies Coded Allergies: Hydromorphone (Verified Allergy, Severe, itching, 10/15/17) Ondansetron (Verified Allergy, Intermediate, hives; RASH, 10/15/17) Sulfa Antibiotics (Verified Allergy, Intermediate, rash, 10/15/17) Aminoglycosides (Verified Allergy, Unknown, >, 10/15/17) Bacitracin (Verified Allergy, Unknown, >, 10/15/17) Ceftriaxone (Verified Allergy, Unknown, Rash, hives and itchiness., ) Cephalexin (Verified Allergy, Unknown, hives, 10/15/17) Latex1 -Allergic Contact Dermititis (Verified Allergy, Unknown, 10/15/17) Neomycin (Verified Allergy, Unknown, >, 10/15/17) Polymyxin B (Verified Allergy, Unknown, >, 10/15/17) Sulfamethoxazole w/Trimethoprim (Verified Allergy, Unknown, Unknown, 10/15) Vital Signs Date Time Temp Pulse Resp B/P (MAP) Pulse Ox O2 Delivery O2 Flow Rate FiO2 12/20/17 16:52 36.9 100 18 129/91 98 Room Air Departure Information Referrals Cipriano Peña M.D. (MEDICAL) (PCP) Patient Instructions My [facility]
[2017-12-20 18:30] VITALS: BP 127/81; PULSE 71; O2SAT 97
== END 2017-12-20 18:31 | disposition home or self-care (01) ==
LOC: C.EDB 16:49 → C.EDD 18:31
DX: T14.8XXA Other injury of unspecified body region, initial encounter (principal); W01.198A Fall on same level from slipping, tripping and stumbling with subsequent striking against other object, initial encounter; Z91.040 Latex allergy status; I10 Essential (primary) hypertension; E78.5 Hyperlipidemia, unspecified; M54.2 Cervicalgia; G89.29 Other chronic pain; F41.8 Other specified anxiety disorders; E11.43 Type 2 diabetes mellitus with diabetic autonomic (poly)neuropathy; K21.9 Gastro-esophageal reflux disease without esophagitis; K58.9 Irritable bowel syndrome, unspecified; J45.40 Moderate persistent asthma, uncomplicated; E66.9 Obesity, unspecified; Z90.710 Acquired absence of both cervix and uterus; Z98.51 Tubal ligation status; Z79.82 Long term (current) use of aspirin; Z79.899 Other long term (current) drug therapy; Z88.1 Allergy status to other antibiotic agents; Z88.2 Allergy status to sulfonamides; Z88.5 Allergy status to narcotic agent; Z88.8 Allergy status to other drugs, medicaments and biological substances

== ENCOUNTER 2017-12-30 19:24 | Emergency (ER) | payer OTHER ==
[~2017-12-30] VITALS: Ht 154.9 cm; Wt 101.2 kg
[2017-12-30 19:35] VITALS: TEMP 36.9; Ht 154.9 cm; Wt 101.2 kg
[2017-12-30] MEDS ORDERED: DICYCLOMINE HCL 20 MG TAB PO ONE (20:15)
[2017-12-30] MEDS ORDERED: ONDANSETRON INJ 2 MG/ML 2 ML VIAL IV PRN (20:15)
[2017-12-30] MEDS ORDERED: SODIUM CHLORIDE 0.9% 500ML 500 ML IV STA (20:15)
--- NOTE | 2017-12-30 20:22 | EMERGENCY ROOM VISIT NOTE ---
History First contact with patient: 19:51 Chief Complaint: FLANK PAIN Stated Complaint: PAIN IN R SIDE History of Present Illness The patient is a 57 year old female who presents to the Emergency Room with complaints of right-sided abdominal pain that started last night. The patient presents as a sharp, stabbing, constant sensation. She also complains of multiple episodes of diarrhea and nausea that started this morning. She denies any blood in her stool or hematemesis. No fever. No sick contacts. No recent antibiotic use or travel. She denies any urinary symptoms. No history of kidney stones. Review of Systems 10 system review performed and negative unless noted in HPI or below Past Medical/Surgical History Medical Problems: (1) Abdominal pain (2) Cervicalgia (3) Depression with anxiety (4) DM type 2 (diabetes mellitus, type 2) (5) Gastroparesis (6) GERD (gastroesophageal reflux disease) (7) IBS (irritable bowel syndrome) (8) Moderate persistent asthma (9) Obesity Surgical Problems: (1) H/O dilation and curettage (2) H/O: hysterectomy (3) History of tonsillectomy and adenoidectomy (4) History of tubal ligation Social History Problems: (1) Herpes simplex Family History FH: cancer FATHER Heart disease Social History Smoking Status: Former Smoker Alcohol Use: none Drug Use: none Housing Status: lives with significant other Occupation Status: employed Current/Historical Medications Scheduled Amitriptyline HCl (Amitriptyline HCl), 100 MG PO HS Aspirin (Aspirin), 81 MG PO DAILY Atorvastatin (Lipitor), 80 MG PO HS Buspirone Hcl (Buspirone Hcl), 5 MG PO BID Duloxetine HCl (Duloxetine HCl), 60 MG PO DAILY Esomeprazole Magnesium (Esomeprazole Magnesium), 40 MG PO QAM Estradiol Vaginal (Estrace), 1 APPLN PV 2XWK Fluticasone Prop/Salmeterol (Advair Diskus 500/50 60 Dose), 1 PUFF INH BID Fluticasone Propionate (Fluticasone Propionate), 1 SPRAY JG BID Gabapentin (Neurontin), 300 MG PO AMPM Hydroxyzine Pamoate (Vistaril), 25 MG PO BID Insulin Detemir (Levemir Flextouch), 5 UNITS SC HS Lisinopril (Lisinopril), 2.5 MG PO DAILY Metformin HCl (Metformin HCl), 500 MG PO BIDM Metoclopramide Hcl (Reglan), 10 MG PO ACHS Mirabegron (Myrbetriq Er), 25 MG PO QAM Montelukast Sod (Montelukast Sodium), 10 MG PO DAILY Multivitamin (Multivitamin), 1 TAB PO DAILY Oxybutynin Chloride (Ditropan), 10 MG PO DAILY Polyethylene (Polyethylene Glycol 3350), 17 GM PO QAM Potassium Gluconate (Potassium Gluconate), 1,190 MG PO DAILY Ranitidine HCl (Ranitidine HCl), 150 MG PO HS Senna/Docusate Sod (Senokot S), 1 TAB PO QAM Scheduled PRN Acetaminophen (Tylenol), 1,000 MG PO Q6 PRN for Pain Dicyclomine Hcl (Dicyclomine Hcl), 10 MG PO QID PRN for Moderate Pain Ipratropium-Albuterol (Duoneb), 1 TREATMENT INH QID PRN for SOB/Wheezing Melatonin (Melatonin), 10 MG PO HS PRN for Sleep Promethazine HCl (Promethazine HCl), 25 MG PO Q6H PRN for Nausea Sucralfate (Sucralfate), 1 GM PO ACHS PRN for Stomach Pain Valacyclovir HCl (Valacyclovir HCl), 500 MG PO TID PRN for Outbreaks Physical Exam Vital Signs Date Time Temp Pulse Resp B/P (MAP) Pulse Ox O2 Delivery O2 Flow Rate FiO2 12/30/17 22:50 84 18 121/59 96 12/30/17 19:35 36.9 95 18 131/91 95 Room Air Physical Exam VITALS: Vitals are noted on the nurse's note and reviewed by myself. Vital signs stable. GENERAL: 57-year-old female, appears older than stated age, SKIN: The skin was without rashes, erythema, edema, or bruising. HEAD: Normocephalic atraumatic. MOUTH: Mucous membranes slightly dry NECK: Supple without nuchal rigidity. No lymphadenopathy. Cervical spine is nontender. No JVD. HEART: Regular rate and rhythm without murmurs gallops or rubs. LUNGS: Clear to auscultation bilaterally without wheezes, rales or rhonchi. No accessory muscle use. ABDOMEN: Positive bowel sounds x 4.Soft, mild tenderness to palpation in the right lower quadrant. Right-sided CVA tenderness noted., without organomegaly. No guarding or rebound tenderness. MUSCULOSKELETAL: No muscle atrophy, erythema, or edema noted. Strength 5/5 throughout. NEURO: Patient was alert and oriented to person place and time. Normal sensation to touch. No focal neurological deficits. Medical Decision & Procedures ER Provider Diagnostic Interpretation: CT abd/pel IMPRESSION: 1. No acute intra-abdominal or intrapelvic abnormality identified, specifically no renal calculi or obstructive uropathy. 2. Hepatomegaly with hepatic steatosis. 3. Normal appendix. 4. Prior hysterectomy. The above report was generated using voice recognition software. It may contain grammatical, syntax or spelling errors. Electronically signed by: Nixon Moctezuma M.D. 12/30/2017 10:11 PM Dictated Date/Time: 12/30/2017 10:04 PM The status of this report is Signed. Draft = Not yet reviewed or approved by Radiologist. Signed = Reviewed and approved by Radiologist. <AttendingPhy></AttendingPhy> <FamilyPhy>Cipriano Peña M.D. (MEDICAL)</ FamilyPhy> <PrimaryPhy>Cipriano Peña M.D. (MEDICAL)</PrimaryPhy> <UnitNumber> [id number]</UnitNumber> <VisitNumber>[id number]</VisitNumber> <PatientName> BEBO IZQUIERDO</PatientName> <DateOfBirth>1960</DateOfBirth> <Location> [facility]</Location> <ServiceDate>12/30/17</ServiceDate> <MNE>ESINDI</MNE> < OrderingPhy>Vicky Salinas PA-C</OrderingPhy> <OrderingPhyMNE>f rep ord dr umaña< /OrderingPhyMNE> <DictatingPhyMNE>f rep dict dr umaña</DictatingPhyMNE> <CCListMNE >f rep ct mne</CCListMNE> <AdmittingPhyMNE>f pt admit dr umaña</AdmittingPhyMNE> < AttendingPhyMNE>f pt attend dr umaña</AttendingPhyMNE> <ConsultingPhyMNE>f pt consult dr umaña</ConsultingPhyMNE> <FamilyPhyMNE>f pt fam dr umaña</FamilyPhyMNE> <OtherPhyMNE>f pt other dr umaña</OtherPhyMNE> < PrimaryPhyMNE>f pt prim care dr umaña</PrimaryPhyMNE> <ReferringPhyMNE>f pt referring dr umaña</ReferringPhyMNE> CXR/KUB IMPRESSION: 1. No acute process of the chest. 2. Nonobstructive bowel gas pattern. 3. No urolith identified. The above report was generated using voice recognition software. It may contain grammatical, syntax or spelling errors. Electronically signed by: Nixon Moctezuma M.D. 12/30/2017 10:03 PM Dictated Date/Time: 12/30/2017 10:01 PM The status of this report is Signed. Draft = Not yet reviewed or approved by Radiologist. Signed = Reviewed and approved by Radiologist. IMPRESSION: 1. No acute process of the chest. 2. Nonobstructive bowel gas pattern. 3. No urolith identified. The above report was generated using voice recognition software. It may contain grammatical, syntax or spelling errors. Electronically signed by: Nixon Moctezuma M.D. 12/30/2017 10:03 PM Dictated Date/Time: 12/30/2017 10:01 PM The status of this report is Signed. Draft = Not yet reviewed or approved by Radiologist. Signed = Reviewed and approved by Radiologist. <AttendingPhy></AttendingPhy> <FamilyPhy>Cipriano Peña M.D. (MEDICAL)</ FamilyPhy> <PrimaryPhy>Cipriano Peña M.D. (MEDICAL)</PrimaryPhy> <UnitNumber> [id number]</UnitNumber> <VisitNumber>[id number]</VisitNumber> <PatientName> BEBO IZQUIERDO Kirk</PatientName> <DateOfBirth>1960</DateOfBirth> <Location> [facility]</Location> <ServiceDate>12/30/17</ServiceDate> <MNE>ESINDI</MNE> < OrderingPhy>Vicky Salinas PA-C</OrderingPhy> <OrderingPhyMNE>f rep ord dr umaña< /OrderingPhyMNE> <DictatingPhyMNE>f rep dict dr umaña</DictatingPhyMNE> <CCListMNE >f rep ct mne</CCListMNE> <AdmittingPhyMNE>f pt admit dr umaña</AdmittingPhyMNE> < AttendingPhyMNE>f pt attend dr umaña</AttendingPhyMNE> <ConsultingPhyMNE>f pt consult dr umaña</ConsultingPhyMNE> <FamilyPhyMNE>f pt fam dr umaña</FamilyPhyMNE> <OtherPhyMNE>f pt other dr umaña</OtherPhyMNE> < PrimaryPhyMNE>f pt prim care dr umaña</PrimaryPhyMNE> <ReferringPhyMNE>f pt referring dr umaña</ReferringPhyMNE> Laboratory Results 12/30/17 20:30 Red Blood Count 4.30, Mean Corpuscular Volume 81.4, Mean Corpuscular Hemoglobin 28.1, Mean Corpuscular Hemoglobin Concent 34.6, Mean Platelet Volume 8.5, Neutrophils (%) (Auto) 49.4, Lymphocytes (%) (Auto) 39.9, Monocytes (%) (Auto) 8.0, Eosinophils (%) (Auto) 2.3, Basophils (%) (Auto) 0.2, Neutrophils # (Auto) 7.06, Lymphocytes # (Auto) 5.71, Monocytes # (Auto) 1.14, Eosinophils # (Auto) 0.33, Basophils # (Auto) 0.03 12/30/17 20:30 Test 12/30/17 20:30 White Blood Count 14.30 K/uL (4.8-10.8) Red Blood Count 4.30 M/uL (4.2-5.4) Hemoglobin 12.1 g/dL (12.0-16.0) Hematocrit 35.0 % (37-47) Mean Corpuscular Volume 81.4 fL (80-100) Mean Corpuscular Hemoglobin 28.1 pg (25-34) Mean Corpuscular Hemoglobin Concent 34.6 g/dl (32-36) Platelet Count 356 K/uL (130-400) Mean Platelet Volume 8.5 fL (7.4-10.4) Neutrophils (%) (Auto) 49.4 % Lymphocytes (%) (Auto) 39.9 % Monocytes (%) (Auto) 8.0 % Eosinophils (%) (Auto) 2.3 % Basophils (%) (Auto) 0.2 % Neutrophils # (Auto) 7.06 K/uL (1.4-6.5) Lymphocytes # (Auto) 5.71 K/uL (1.2-3.4) Monocytes # (Auto) 1.14 K/uL (0.11-0.59) Eosinophils # (Auto) 0.33 K/uL (0-0.5) Basophils # (Auto) 0.03 K/uL (0-0.2) RDW Standard Deviation 41.4 fL (36.4-46.3) RDW Coefficient of Variation 13.9 % (11.5-14.5) Immature Granulocyte % (Auto) 0.2 % Immature Granulocyte # (Auto) 0.03 K/uL (0.00-0.02) Urine Color YELLOW Urine Appearance CLOUDY (CLEAR) Urine pH 6.0 (4.5-7.5) Urine Specific [place] 1.006 (1.000-1.030) Urine Protein NEG (NEG) Urine Glucose (UA) NEG (NEG) Urine Ketones NEG (NEG) Urine Occult Blood NEG (NEG) Urine Nitrite NEG (NEG) Urine Bilirubin NEG (NEG) Urine Urobilinogen NEG (NEG) Urine Leukocyte Esterase MODERATE (NEG) Urine WBC (Auto) 10-30 /hpf (0-5) Urine RBC (Auto) 0-4 /hpf (0-4) Urine Hyaline Casts (Auto) 1-5 /lpf (0-5) Urine Epithelial Cells (Auto) >30 /lpf (0-5) Urine Bacteria (Auto) NEG (NEG) Anion Gap 8.0 mmol/L (3-11) Est Creatinine Clear Calc Drug Dose 68.2 ml/min Estimated GFR () 74.1 Estimated GFR (Non- 63.9 BUN/Creatinine Ratio 10.2 (10-20) Calcium Level 8.9 mg/dl (8.5-10.1) Total Bilirubin 0.2 mg/dl (0.2-1) Aspartate Amino Transf (AST/SGOT) 21 U/L (15-37) Alanine Aminotransferase (ALT/SGPT) 49 U/L (12-78) Alkaline Phosphatase 150 U/L (45-117) Total Protein 6.5 gm/dl (6.4-8.2) Albumin 3.3 gm/dl (3.4-5.0) Globulin 3.2 gm/dl (2.5-4.0) Albumin/Globulin Ratio 1.0 (0.9-2) Lipase 185 U/L (73-393) Medications Administered Medications (Trade) Dose Ordered Sig/Antony Route Start Time Stop Time Status Last Admin Dose Admin Sodium Chloride 500 ml @ 999 mls/hr Q31M STAT IV 12/30/17 20:15 12/30/17 20:45 DC 12/30/17 20:40 999 MLS/HR Dicyclomine HCl (Bentyl Tab) 10 mg ONE ONCE PO 12/30/17 20:15 12/30/17 20:17 DC 12/30/17 20:40 10 MG Promethazine HCl 12.5 mg/Sodium Chloride 50.5 ml @ 204 mls/hr NOW STAT IV 12/30/17 20:49 12/30/17 21:03 DC 12/30/17 21:24 204 MLS/HR Ketorolac Tromethamine (Toradol Inj) 30 mg NOW STAT IV 12/30/17 22:16 12/30/17 22:17 DC 12/30/17 22:31 30 MG Tramadol HCl (Ultram Home Pack) 1 homepack UD ONCE PO 12/30/17 22:30 12/30/17 22:31 DC 12/30/17 22:31 1 HOMEPACK ED Course Patient was seen and examined Vital signs including blood pressure were reviewed medications list was verified with patient Labs were obtained, and a saline lock was established The patient was medicated with Zofran and Bentyl. She was hydrated with 500 mL of normal saline Imaging was performed and reviewed Upon reevaluation, the patient was still complaining of pain. She was given Toradol 30 mg IV. We thoroughly discussed her results. She voiced understanding, and was comfortable being discharged home. She was also seen and evaluated by my supervising physician who is in agreement with my plan patient was given a home pack of tramadol I reviewed discharge instructions the patient. They voiced understanding and had no further questions. Medical Decision Differential diagnosis: Viral GI illness, appendicitis, choledocholithiasis, cholecystitis, pancreatitis, pyelonephritis, UTI, ureteral stone, muscular pain This patient is a 57-year-old female that presents to the emergency department with right lower abdominal pain, nausea and diarrhea. On exam, she has a mild tenderness in the right lower quadrant. No guarding or rebound tenderness. Her abdomen was soft. She also had some right-sided CVA tenderness. Her labs reveal leukocytosis, which is at baseline. Due to the amount of pain the patient was having, I opted to do a CT scan. No acute abnormalities were noted. The patient denies any urinary symptoms. It is possible that she has a viral GI illness that will run its course. She is tolerating liquids. I believe she is stable to be discharged home with close follow-up. The patient has Phenergan at home. She was given a home pack of tramadol for pain. The patient was comfortable with this plan. She will follow-up with her primary care physician, and agrees to return to the emergency department with any new or worsening symptoms This chart was completed in part utilizing [employer] Speech Voice Recognition software. Attempts were made to minimize the grammatical errors, random word insertions, pronoun errors and incomplete sentences. Any formal questions or concerns about the content, text or information contained within the body of this dictation should be directly addressed to the provider for clarification. Medication Reconcilliation Current Medication List: was personally reviewed by me Blood Pressure Screening Patient's blood pressure: Normal blood pressure Impression Primary Impression: Abdominal pain Additional Impression: Diarrhea Departure Information Dispostion Home / Self-Care Condition GOOD Referrals Cipriano Peña M.D. (MEDICAL) (PCP) Patient Instructions My [facility] Additional Instructions You were evaluated in the emergency department for abdominal pain and flank pain. No significant abnormalities were seen on the CAT scan. The cause of the pain is unclear. Please take Tylenol 650 mg every 6 hours as needed for pain Please take Ultram one tablet every 4 hours for severe pain. Please do not drink alcohol or drive taking this medication. Please continue Phenergan as directed for nausea Follow a clear liquid diet for tonight, which includes broth, sports drinks such as Gatorade and water. If you are feeling better tomorrow, please advance to a bland diet such as crackers and toast. It is very important for you to be rechecked by your primary care physician as soon as possible. Please call tomorrow morning for a follow-up appointment. Do not hesitate to return to the emergency department with any new, worsening or concerning symptoms Problem Qualifiers
[2017-12-30 20:43] LABS: HEMOGLOBIN 12.1 g/dL (12.0-16.0); MEAN CELL VOLUME 81.4 fL (80-100); MEAN CORPUSCULAR HEMOGLOBIN 28.1 pg (25-34); MEAN CORPUSCULAR HGB CONC 34.6 g/dl (32-36); MEAN PLATELET VOLUME 8.5 fL (7.4-10.4); PLATELET COUNT 356 K/uL (130-400); RED CELL DISTRIBUTION WIDTH CV 13.9 % (11.5-14.5); RED CELL DISTRIBUTION WIDTH SD 41.4 fL (36.4-46.3)
[2017-12-30] MEDS ORDERED: PROMETHAZINE HCL INJ 12.5 MG in SODIUM CHLORIDE 0.9% 50ML 50 ML IV STA (20:49)
[2017-12-30 20:59] LABS: ALBUMIN 3.3 gm/dl (3.4-5.0); CALCIUM 8.9 mg/dl (8.5-10.1); CREATININE 0.97 mg/dl (0.60-1.20); POTASSIUM 3.7 mmol/L (3.5-5.1)
[2017-12-30 21:02] LABS: TOTAL PROTEIN 6.5 gm/dl (6.4-8.2)
[2017-12-30 21:06] LABS: BASO % 0.2 %; BASO ABS # 0.03 K/uL (0-0.2); EOS % 2.3 %; EOS ABS # 0.33 K/uL (0-0.5); IG# 0.03 K/uL (0.00-0.02); LYMPH % 39.9 %; LYMPH ABS # 5.71 K/uL (1.2-3.4); MONO ABS # 1.14 K/uL (0.11-0.59); NEUT % 49.4 %; NEUT ABS # 7.06 K/uL (1.4-6.5)
[2017-12-30] MEDS ORDERED: GABA-113 PO (21:07)
[2017-12-30] MEDS ORDERED: ACET-1256 PO (21:07)
--- NOTE | 2017-12-30 22:04 | DIAGNOSTIC IMAGING REPORT ---
CHEST 1 VW FRONT-NOT PORTABLE, KUB HISTORY: 57 years-old Female R sided abd pain acute right-sided abdominal and chest pain with diarrhea COMPARISON: CT abdomen and pelvis of same day, chest radiographs 12/11/2017 TECHNIQUE: AP view of the chest with KUB radiograph FINDINGS: Cardiomediastinal and hilar silhouettes are within normal limits. Mild right hemidiaphragmatic elevation without pneumothorax, pleural effusion, focal airspace consolidation or overt pulmonary edema. The bones of the chest appear grossly intact. Calcifications of the pelvis suggest phleboliths. No pneumoperitoneum or pneumatosis identified. The bowel gas pattern appears nonobstructive. No urolith or acute fracture. IMPRESSION: 1. No acute process of the chest. 2. Nonobstructive bowel gas pattern. 3. No urolith identified. The above report was generated using voice recognition software. It may contain grammatical, syntax or spelling errors. Electronically signed by: Nixon Moctezuma M.D. 12/30/2017 10:03 PM Dictated Date/Time: 12/30/2017 10:01 PM
--- NOTE | 2017-12-30 22:13 | DIAGNOSTIC IMAGING REPORT ---
ABD/PELVIS WITHOUT FOR STONE HISTORY: 57 years-old Female R sided abd pain R flank pain Likely UTI acute right-sided abdominal and leg pain with urinary tract infection COMPARISON: CT abdomen and pelvis 11/26/2017 TECHNIQUE: Multiple axial CT images of the abdomen and pelvis were obtained without the use of IV contrast. A dose lowering technique was used consistent with the principals of STEVIE. FINDINGS: The lung bases are generally clear. There is no pneumatosis or pneumoperitoneum identified. The imaged inferior cardiac chambers are unremarkable. Fatty infiltration of the liver. The liver is also mildly enlarged. No intrahepatic biliary ductal dilation. Gallbladder, spleen, pancreas and adrenal glands are within normal limits. Low attenuating 2.2 cm lesion of the medial aspect interpolar left kidney suggests renal cyst. Kidneys and ureters are otherwise within normal limits without renal calculi or obstructive uropathy. The urinary bladder is within normal limits. Prior hysterectomy. No adnexal mass lesions are identified. There is mild atherosclerosis of the aorta without aneurysm. No bulky adenopathy. There is no bowel obstruction or focal bowel wall thickening. 2.0 cm centrally fatty attenuating structure of the left hemipelvis, image 353 series 3 appears unchanged suggesting an area of remote epiploic appendagitis. Mild sigmoid: Diverticulosis without evidence of acute diverticulitis. Normal appendix. Soft tissues are unremarkable. The bones appear to be intact. IMPRESSION: 1. No acute intra-abdominal or intrapelvic abnormality identified, specifically no renal calculi or obstructive uropathy. 2. Hepatomegaly with hepatic steatosis. 3. Normal appendix. 4. Prior hysterectomy. The above report was generated using voice recognition software. It may contain grammatical, syntax or spelling errors. Electronically signed by: Nixon Moctezuma M.D. 12/30/2017 10:11 PM Dictated Date/Time: 12/30/2017 10:04 PM
[2017-12-30] MEDS ORDERED: KETOROLAC TROMETHAMINE 30 MG/ML VIAL IV STA (22:16)
[2017-12-30] MEDS ORDERED: TRAMADOL HCL 50 MG HOME PACK PO ONE (22:30)
--- NOTE | 2017-12-30 22:39 | EMERGENCY ROOM VISIT NOTE ---
ED Visit Note First contact with patient: 19:51 The patient was seen and examined with Vicky Salinas PA-C. I agree with the history, physical and findings. Please see the note for disposition and details.
[2017-12-30 22:50] VITALS: BP 121/59; PULSE 84; O2SAT 96
== END 2017-12-30 22:50 | disposition home or self-care (01) ==
LOC: C.EDB 19:26 → C.EDA 22:50
DX: R10.9 Unspecified abdominal pain (principal); R19.7 Diarrhea, unspecified; R11.0 Nausea; F41.8 Other specified anxiety disorders; E11.43 Type 2 diabetes mellitus with diabetic autonomic (poly)neuropathy; K21.9 Gastro-esophageal reflux disease without esophagitis; K58.9 Irritable bowel syndrome, unspecified; J45.40 Moderate persistent asthma, uncomplicated; Z90.710 Acquired absence of both cervix and uterus; Z98.51 Tubal ligation status; E66.9 Obesity, unspecified; Z68.41 Body mass index [BMI] 40.0-44.9, adult; Z80.9 Family history of malignant neoplasm, unspecified; Z87.891 Personal history of nicotine dependence; Z79.82 Long term (current) use of aspirin; Z79.899 Other long term (current) drug therapy; Z79.84 Long term (current) use of oral hypoglycemic drugs; Z79.4 Long term (current) use of insulin

== ENCOUNTER 2017-12-31 21:39 | Emergency (ER) | payer OTHER ==
[~2017-12-31] VITALS: Ht 154.9 cm; Wt 101.4 kg
[~2017-12-31 21:39] MED LIST changes: +ACET-1256 PO; +GABA-113 PO; -NRN100 PO
[2017-12-31 21:41] VITALS: Ht 154.9 cm; Wt 101.4 kg
[2017-12-31] MEDS ORDERED: LIDOCAINE HCL 2% VISC SOLN 20 ML UDC PO STA (21:52)
[2017-12-31] MEDS ORDERED: ALUMINUM/MAGNESIUM SUSP 30 ML UDC PO STA (21:52)
[2017-12-31] MEDS ORDERED: DiphenhydrAMINE HCL 50 MG/ML VIAL IV STA (21:53)
[2017-12-31] MEDS ORDERED: METOCLOPRAMIDE HCL INJ 5 MG/ML 2 ML VIAL IV STA (21:53)
[2017-12-31 22:11] VITALS: O2SAT 97
--- NOTE | 2017-12-31 22:16 | DIAGNOSTIC IMAGING REPORT ---
CHEST ONE VIEW PORTABLE CLINICAL HISTORY: 57 years-old Female presenting with CHEST PAIN. TECHNIQUE: Portable upright AP view of the chest was obtained. COMPARISON: 12/30/2017. FINDINGS: Cardiomediastinal silhouette normal. Elevation of the left hemidiaphragm unchanged. No focal infiltrate. No large effusion or pneumothorax. Osseous structures normal. Upper abdomen normal. IMPRESSION: 1. No acute cardiopulmonary disease. Electronically signed by: Jareth Guerra M.D. 12/31/2017 10:15 PM Dictated Date/Time: 12/31/2017 10:14 PM
[2017-12-31 22:20] LABS: BASO % 0.2 %; BASO ABS # 0.02 K/uL (0-0.2); EOS % 3.1 %; EOS ABS # 0.32 K/uL (0-0.5); HEMATOCRIT 34.2 % (37-47); HEMOGLOBIN 11.8 g/dL (12.0-16.0); IG# 0.02 K/uL (0.00-0.02); LYMPH % 44.4 %; LYMPH ABS # 4.56 K/uL (1.2-3.4); MEAN CORPUSCULAR HEMOGLOBIN 28.3 pg (25-34); MEAN CORPUSCULAR HGB CONC 34.5 g/dl (32-36); MEAN PLATELET VOLUME 8.6 fL (7.4-10.4); MONO % 7.7 %; MONO ABS # 0.79 K/uL (0.11-0.59); NEUT % 44.4 %; NEUT ABS # 4.55 K/uL (1.4-6.5); PLATELET COUNT 360 K/uL (130-400); RED CELL DISTRIBUTION WIDTH CV 13.8 % (11.5-14.5); RED CELL DISTRIBUTION WIDTH SD 41.5 fL (36.4-46.3); WHITE BLOOD COUNT 10.26 K/uL (4.8-10.8)
[2017-12-31 22:33] LABS: ALBUMIN 3.1 gm/dl (3.4-5.0); ALT/SGPT 49 U/L (12-78); BLOOD UREA NITROGEN 11 mg/dl (7-18); CALCIUM 8.5 mg/dl (8.5-10.1); CARBON DIOXIDE 21 mmol/L (21-32); CREATININE 0.77 mg/dl (0.60-1.20); GLUCOSE 178 mg/dl (70-99); LIPASE 194 U/L (73-393); POTASSIUM 3.6 mmol/L (3.5-5.1); SODIUM 134 mmol/L (136-145)
[2017-12-31 22:36] LABS: ALKALINE PHOSPHATASE 147 U/L (45-117); AST/SGOT 23 U/L (15-37); TOTAL PROTEIN 6.3 gm/dl (6.4-8.2)
--- NOTE | 2017-12-31 23:05 | DIAGNOSTIC IMAGING REPORT ---
GALLBLADDER-ABD LIMITED CLINICAL HISTORY: 57 years-old Female presenting with ruq pain, ? GB. TECHNIQUE: Real-time grayscale and limited color Doppler ultrasound imaging of the abdomen limited to the right upper quadrant was performed. COMPARISON: CT from 12/30/2017 an ultrasound from 04/22/2017. FINDINGS: Pancreas: Visualized portions of the pancreatic head and body normal. Liver: Moderately hyperechogenic parenchyma with partial obscuration of the right hemidiaphragm, likely indicating moderate steatosis. The liver measures 19.6 cm in maximal sagittal dimension. No sonographic evidence of hepatic mass. Main portal vein patent with normal directional flow. Biliary: No intrahepatic biliary ductal dilatation. Common bile duct measures up to 9 mm in diameter. Gallbladder: No evidence of gallstones, gallbladder wall thickening, gallbladder distention, or pericholecystic fluid or inflammatory change. Right kidney: Normal in appearance. No hydronephrosis. Ascites: None. IMPRESSION: 1. Hepatic steatosis. Correlate with liver function tests to exclude steatohepatitis as a cause for abdominal pain. 2. No cholelithiasis. 3. Extrahepatic biliary duct dilatation without sonographic evidence of choledocholithiasis. Electronically signed by: Jareth Guerra M.D. 12/31/2017 11:04 PM Dictated Date/Time: 12/31/2017 11:02 PM
--- NOTE | 2017-12-31 23:53 | EMERGENCY ROOM VISIT NOTE ---
ED Visit Note First contact with patient: 21:48 The patient was seen and examined with Juliette Hoffman [facility]. I agree with the history, physical and findings. Please see the note for disposition and details.
--- NOTE | 2018-01-01 00:09 | EMERGENCY ROOM VISIT NOTE ---
History First contact with patient: 21:48 Chief Complaint: PAIN (GENERALIZED) Stated Complaint: PAIN IN SIDE, BACK, LEGS, CHEST History of Present Illness The patient is a 57 year old female who presents to the Emergency Room with complaints of ongoing right upper quadrant epigastric chest pain for the past few days with ongoing body aches. Patient still has her gallbladder. Pain 6 out of 10. Nothing makes it better or worse. It does not radiate. Patient denies dyspnea, fever, chills, cough, congestion, leg swelling, vomiting, diarrhea, urinary symptoms, flank pain, back pain. She is tolerating p.o. fluids and food. Colonoscopy 5 years ago was negative for acute findings per patient. No prior heart disease. Review of Systems An 10 system review of systems was completed with positives and pertinent negatives listed in the HPI. Past Medical/Surgical History Medical Problems: (1) Abdominal pain (2) Cervicalgia (3) Depression with anxiety (4) DM type 2 (diabetes mellitus, type 2) (5) Gastroparesis (6) GERD (gastroesophageal reflux disease) (7) IBS (irritable bowel syndrome) (8) Moderate persistent asthma (9) Obesity Surgical Problems: (1) H/O dilation and curettage (2) H/O: hysterectomy (3) History of tonsillectomy and adenoidectomy (4) History of tubal ligation Social History Problems: (1) Herpes simplex Family History FH: cancer FATHER Heart disease Social History Smoking Status: Former Smoker Alcohol Use: none Drug Use: none Housing Status: lives with significant other Occupation Status: employed Current/Historical Medications Scheduled Amitriptyline HCl (Amitriptyline HCl), 100 MG PO HS Aspirin (Aspirin), 81 MG PO DAILY Atorvastatin (Lipitor), 80 MG PO HS Buspirone Hcl (Buspirone Hcl), 5 MG PO BID Duloxetine HCl (Duloxetine HCl), 60 MG PO DAILY Esomeprazole Magnesium (Esomeprazole Magnesium), 40 MG PO QAM Estradiol Vaginal (Estrace), 1 APPLN PV 2XWK Fluticasone Prop/Salmeterol (Advair Diskus 500/50 60 Dose), 1 PUFF INH BID Fluticasone Propionate (Fluticasone Propionate), 1 SPRAY JG BID Gabapentin (Neurontin), 300 MG PO AMPM Hydroxyzine Pamoate (Vistaril), 25 MG PO BID Insulin Detemir (Levemir Flextouch), 5 UNITS SC HS Lisinopril (Lisinopril), 2.5 MG PO DAILY Metformin HCl (Metformin HCl), 500 MG PO BIDM Metoclopramide Hcl (Reglan), 10 MG PO ACHS Mirabegron (Myrbetriq Er), 25 MG PO QAM Montelukast Sod (Montelukast Sodium), 10 MG PO DAILY Multivitamin (Multivitamin), 1 TAB PO DAILY Oxybutynin Chloride (Ditropan), 10 MG PO DAILY Polyethylene (Polyethylene Glycol 3350), 17 GM PO QAM Potassium Gluconate (Potassium Gluconate), 1,190 MG PO DAILY Ranitidine HCl (Ranitidine HCl), 150 MG PO HS Senna/Docusate Sod (Senokot S), 1 TAB PO QAM Scheduled PRN Acetaminophen (Tylenol), 1,000 MG PO Q6 PRN for Pain Dicyclomine Hcl (Dicyclomine Hcl), 10 MG PO QID PRN for Moderate Pain Ipratropium-Albuterol (Duoneb), 1 TREATMENT INH QID PRN for SOB/Wheezing Melatonin (Melatonin), 10 MG PO HS PRN for Sleep Promethazine HCl (Promethazine HCl), 25 MG PO Q6H PRN for Nausea Sucralfate (Sucralfate), 1 GM PO ACHS PRN for Stomach Pain Valacyclovir HCl (Valacyclovir HCl), 500 MG PO TID PRN for Outbreaks Physical Exam Vital Signs Date Time Temp Pulse Resp B/P (MAP) Pulse Ox O2 Delivery O2 Flow Rate FiO2 12/31/17 23:47 67 18 105/61 97 Room Air 12/31/17 22:27 97 12/31/17 22:11 97 Room Air 12/31/17 22:11 97 Room Air 12/31/17 21:41 95 18 138/86 96 Room Air Physical Exam VITALS: Vitals are noted on the nurse's note and reviewed by myself. Vital signs stable. GENERAL: White female well-appearing, in no acute distress, nondiaphoretic, well -developed well-nourished. SKIN: The skin was without rashes, erythema, edema, or bruising. There is no tenting of the skin. Capillary reflex less than 2 seconds. HEAD: Normocephalic atraumatic. EARS: External auditory canals clear, tympanic membranes pearly ramirez without erythema or effusion bilaterally. EYES: Pupils equal round and reactive to light and accommodation. Conjunctivae without injection, sclerae without icterus. Extraocular movements intact. NOSE: Patent, turbinates without inflammation or discharge. No sinus tenderness. MOUTH: Mucous membranes moist. Pharynx without erythema or exudate. Uvula midline. Airway patent. Tongue does not deviate. NECK: Supple without nuchal rigidity. No lymphadenopathy. No thyromegaly. Cervical spine is nontender. No JVD. HEART: Regular rate and rhythm without murmurs gallops or rubs. LUNGS: Clear to auscultation bilaterally without wheezes, rales or rhonchi. No retractions or accessory muscle use. ABDOMEN: Positive bowel sounds x 4. Normal tympanic percussion. Soft, minimally tender epigastric region, no CVA tenderness, protuberant, obese, without masses or organomegaly. Cesar sign negative. No guarding or rebound tenderness. No CVA tenderness MUSCULOSKELETAL: No muscle atrophy, erythema, noted. NEURO: Patient was alert and oriented to person place and time. Normal sensation to light and sharp touch. No focal neurological deficits. Medical Decision & Procedures Laboratory Results 12/31/17 22:00 Red Blood Count 4.17, Mean Corpuscular Volume 82.0, Mean Corpuscular Hemoglobin 28.3, Mean Corpuscular Hemoglobin Concent 34.5, Mean Platelet Volume 8.6, Neutrophils (%) (Auto) 44.4, Lymphocytes (%) (Auto) 44.4, Monocytes (%) (Auto) 7.7, Eosinophils (%) (Auto) 3.1, Basophils (%) (Auto) 0.2, Neutrophils # (Auto) 4.55, Lymphocytes # (Auto) 4.56, Monocytes # (Auto) 0.79, Eosinophils # (Auto) 0.32, Basophils # (Auto) 0.02 12/31/17 22:00 Test 12/31/17 22:00 12/31/17 23:43 White Blood Count 10.26 K/uL (4.8-10.8) Red Blood Count 4.17 M/uL (4.2-5.4) Hemoglobin 11.8 g/dL (12.0-16.0) Hematocrit 34.2 % (37-47) Mean Corpuscular Volume 82.0 fL (80-100) Mean Corpuscular Hemoglobin 28.3 pg (25-34) Mean Corpuscular Hemoglobin Concent 34.5 g/dl (32-36) Platelet Count 360 K/uL (130-400) Mean Platelet Volume 8.6 fL (7.4-10.4) Neutrophils (%) (Auto) 44.4 % Lymphocytes (%) (Auto) 44.4 % Monocytes (%) (Auto) 7.7 % Eosinophils (%) (Auto) 3.1 % Basophils (%) (Auto) 0.2 % Neutrophils # (Auto) 4.55 K/uL (1.4-6.5) Lymphocytes # (Auto) 4.56 K/uL (1.2-3.4) Monocytes # (Auto) 0.79 K/uL (0.11-0.59) Eosinophils # (Auto) 0.32 K/uL (0-0.5) Basophils # (Auto) 0.02 K/uL (0-0.2) RDW Standard Deviation 41.5 fL (36.4-46.3) RDW Coefficient of Variation 13.8 % (11.5-14.5) Immature Granulocyte % (Auto) 0.2 % Immature Granulocyte # (Auto) 0.02 K/uL (0.00-0.02) Anion Gap 10.0 mmol/L (3-11) Est Creatinine Clear Calc Drug Dose 86.0 ml/min Estimated GFR () 98.0 Estimated GFR (Non- 84.5 BUN/Creatinine Ratio 14.1 (10-20) Calcium Level 8.5 mg/dl (8.5-10.1) Total Bilirubin 0.2 mg/dl (0.2-1) Direct Bilirubin < 0.1 mg/dl (0-0.2) Aspartate Amino Transf (AST/SGOT) 23 U/L (15-37) Alanine Aminotransferase (ALT/SGPT) 49 U/L (12-78) Alkaline Phosphatase 147 U/L (45-117) Total Protein 6.3 gm/dl (6.4-8.2) Albumin 3.1 gm/dl (3.4-5.0) Lipase 194 U/L (73-393) Bedside Troponin I < 0.030 ng/ml (0-0.045) Medications Administered Medications (Trade) Dose Ordered Sig/Antony Route Start Time Stop Time Status Last Admin Dose Admin Lidocaine HCl (Viscous Lidocaine 2% Soln) 10 ml NOW STAT PO 12/31/17 21:52 12/31/17 21:53 DC 12/31/17 22:18 10 ML Al Hydroxide/Mg Hydroxide (Maalox Susp) 30 ml NOW STAT PO 12/31/17 21:52 12/31/17 21:53 DC 12/31/17 22:18 30 ML Metoclopramide HCl (Reglan Inj) 5 mg NOW STAT IV 12/31/17 21:53 12/31/17 21:54 DC 12/31/17 22:18 5 MG Diphenhydramine HCl (Benadryl Inj) 12.5 mg NOW STAT IV 12/31/17 21:53 12/31/17 21:54 DC 12/31/17 22:19 12.5 MG ED Course Prior records/ancillary studies reviewed. Triage Nursing notes reviewed. The patient's history was concerning for abdominal pain. Differential diagnosis: Etiologies such as appendicitis, diverticulitis, cardiac, PUD, biliary pathology , UTI, pancreatitis, obstruction, mesenteric ischemia, aortic pathology, infections, inflammatory bowel disease, renal colic, as well as others were entertained. Physical examination findings: As above. ER treatment provided: GI cocktail, Reglan, Benadryl On reassessment the patient felt better. Diagnostics interpreted by me: ECG: Normal sinus, normal intervals, T-wave inversion in V2, poor baseline, rate of 89, impression normal sinus rhythm rate of 89 interpreted by myself. EKG compared to prior EKG from last month with no acute changes noted. The labs revealed mild anemia. Hyperglycemia without DKA. Negative troponin 2 greater than 2 hours apart Imaging studies: GALLBLADDER-ABD LIMITED CLINICAL HISTORY: 57 years-old Female presenting with ruq pain, ? GB. TECHNIQUE: Real-time grayscale and limited color Doppler ultrasound imaging of the abdomen limited to the right upper quadrant was performed. COMPARISON: CT from 12/30/2017 an ultrasound from 04/22/2017. FINDINGS: Pancreas: Visualized portions of the pancreatic head and body normal. Liver: Moderately hyperechogenic parenchyma with partial obscuration of the right hemidiaphragm, likely indicating moderate steatosis. The liver measures 19.6 cm in maximal sagittal dimension. No sonographic evidence of hepatic mass. Main portal vein patent with normal directional flow. Biliary: No intrahepatic biliary ductal dilatation. Common bile duct measures up to 9 mm in diameter. Gallbladder: No evidence of gallstones, gallbladder wall thickening, gallbladder distention, or pericholecystic fluid or inflammatory change. Right kidney: Normal in appearance. No hydronephrosis. Ascites: None. IMPRESSION: 1. Hepatic steatosis. Correlate with liver function tests to exclude steatohepatitis as a cause for abdominal pain. 2. No cholelithiasis. 3. Extrahepatic biliary duct dilatation without sonographic evidence of choledocholithiasis. Electronically signed by: Jareth Guerra M.D. ] CHEST ONE VIEW PORTABLE CLINICAL HISTORY: 57 years-old Female presenting with CHEST PAIN. TECHNIQUE: Portable upright AP view of the chest was obtained. COMPARISON: 12/30/2017. FINDINGS: Cardiomediastinal silhouette normal. Elevation of the left hemidiaphragm unchanged. No focal infiltrate. No large effusion or pneumothorax. Osseous structures normal. Upper abdomen normal. IMPRESSION: 1. No acute cardiopulmonary disease. Electronically signed by: Jarteh Guerra M.D. [~ rep ct add3]] ABD/PELVIS WITHOUT FOR STONE HISTORY: 57 years-old Female R sided abd pain R flank pain Likely UTI acute right-sided abdominal and leg pain with urinary tract infection COMPARISON: CT abdomen and pelvis 11/26/2017 TECHNIQUE: Multiple axial CT images of the abdomen and pelvis were obtained without the use of IV contrast. A dose lowering technique was used consistent with the principals of ALARA. FINDINGS: The lung bases are generally clear. There is no pneumatosis or pneumoperitoneum identified. The imaged inferior cardiac chambers are unremarkable. Fatty infiltration of the liver. The liver is also mildly enlarged. No intrahepatic biliary ductal dilation. Gallbladder, spleen, pancreas and adrenal glands are within normal limits. Low attenuating 2.2 cm lesion of the medial aspect interpolar left kidney suggests renal cyst. Kidneys and ureters are otherwise within normal limits without renal calculi or obstructive uropathy. The urinary bladder is within normal limits. Prior hysterectomy. No adnexal mass lesions are identified. There is mild atherosclerosis of the aorta without aneurysm. No bulky adenopathy. There is no bowel obstruction or focal bowel wall thickening. 2.0 cm centrally fatty attenuating structure of the left hemipelvis, image 353 series 3 appears unchanged suggesting an area of remote epiploic appendagitis. Mild sigmoid: Diverticulosis without evidence of acute diverticulitis. Normal appendix. Soft tissues are unremarkable. The bones appear to be intact. IMPRESSION: 1. No acute intra-abdominal or intrapelvic abnormality identified, specifically no renal calculi or obstructive uropathy. 2. Hepatomegaly with hepatic steatosis. 3. Normal appendix. 4. Prior hysterectomy. The above report was generated using voice recognition software. It may contain grammatical, syntax or spelling errors. Electronically signed by: Nixon Moctezuma M.D. Exam and history seem consistent with ongoing epigastric right upper quadrant pain. Patient does not have acute abdomen on exam. She is well-appearing. This is her third visit this month. She was here yesterday for similar complaint. She had a negative CAT scan. She is strongly encouraged to follow- up outpatient with the family care doctor in a few days for further workup on her gallbladder and for ongoing complaints. She is advised to avoid fatty foods and to do a bland diet until her symptoms resolve. She is advised to return to the ER immediately for abdominal pain, chest pain, difficulty breathing, worsening signs or symptoms or as needed.By the evaluation outlined above emergent etiologies such as appendicitis, diverticulitis, PUD, UTI, pancreatitis, obstruction, mesenteric ischemia, aortic pathology, infections, inflammatory bowel disease, renal colic, as well as others were deemed relatively unlikely. The pt informed about the findings as listed above. All questions were answered and pleased with the treatment. Return instructions were outlined and the patient was discharged in stable condition. Referral: The patient was referred back to their primary care physician for follow-up in 2 to 3 days for a recheck of the current condition. Case reviewed with my attending The chart was completed utilizing [employer] voice recognition software. Grammatical errors, random word insertions, pronoun errors, and incomplete sentences are an occassional consequence of this system due to software limitations, ambient noise, and hardware issues. Any formal questions or concerns about the content, text, or information contained within the body of this dictation should be directly addressed to the physician assistant vice president for clarification. Medical Decision As above Medication Reconcilliation Current Medication List: was personally reviewed by me Blood Pressure Screening Patient's blood pressure: Normal blood pressure Impression Primary Impression: Abdominal discomfort, epigastric Additional Impression: Hyperglycemia Departure Information Dispostion Home / Self-Care Condition GOOD Referrals Cipriano Peña M.D. (MEDICAL) (PCP) Patient Instructions [facility] Additional Instructions DO NOT drive, drink alcohol, operate machinery, or perform dangerous activities today. You were given medications in the ER that can affect your ability to safely function or operate a vehicle. Recommend outpatient HIDA scan for further evaluation and workup on your gallbladder if symptoms persist. Monitor your blood sugars. It was high today. Acetaminophen(Tylenol) may be used for fever or pain. Use 1000mg every six hours as needed. Avoid using more than 3000mg in a 24 hour period. Rest and drink plenty of fluids as tolerated. Slow sips of water or sports drinks are recommended instead of large amounts all at once. Continue current medications. Once your stomach is settled start with a clear liquid diet (jello, soup broth, etc.) and then advance as tolerated. You should avoid full, heavy meals for about 24 hrs from the time your symptoms resolved. Recommend low-fat healthy foods to help prevent gallbladder attacks and for healthy living. Return to the ER immediately for worsening or persistent abdominal pain, vomiting, fevers, chest pains, difficulty breathing, black or bloody stools, worsening of your condition, or as needed. Follow up with your primary physician in 2-3 days for a recheck of your current condition. Problem Qualifiers
[2018-01-01 00:46] VITALS: BP 136/82; PULSE 78; O2SAT 98
== END 2018-01-01 00:50 | disposition home or self-care (01) ==
LOC: C.EDB 21:40
DX: R10.13 Epigastric pain (principal); E11.65 Type 2 diabetes mellitus with hyperglycemia; E11.43 Type 2 diabetes mellitus with diabetic autonomic (poly)neuropathy; Z79.4 Long term (current) use of insulin; Z79.82 Long term (current) use of aspirin; J45.40 Moderate persistent asthma, uncomplicated; K21.9 Gastro-esophageal reflux disease without esophagitis; F41.8 Other specified anxiety disorders; E66.9 Obesity, unspecified; Z90.710 Acquired absence of both cervix and uterus; Z98.890 Other specified postprocedural states; Z87.891 Personal history of nicotine dependence; Z82.49 Family history of ischemic heart disease and other diseases of the circulatory system

== ENCOUNTER 2018-02-25 19:37 | Emergency (ER) | payer OTHER ==
[~2018-02-25] VITALS: Ht 154.9 cm; Wt 101.9 kg
[2018-02-25 19:43] VITALS: TEMP 36.6; Ht 154.9 cm; Wt 101.9 kg
[2018-02-25] MEDS ORDERED: ACETAMINOPHEN 500 MG TAB PO STA (19:56)
[2018-02-25] MEDS ORDERED: IBUPROFEN 600 MG TAB PO STA (19:56)
--- NOTE | 2018-02-25 20:47 | DIAGNOSTIC IMAGING REPORT ---
R ANKLE MIN 3 VIEWS ROUTINE CLINICAL HISTORY: Fall. Right knee/ankle injury pain COMPARISON: None. DISCUSSION: The bones and joint spaces appear intact. There is no evidence of fracture, dislocation or bony disease. There is no evidence for soft tissue swelling. IMPRESSION: Negative study. The above report was generated using voice recognition software. It may contain grammatical, syntax or spelling errors. Electronically signed by: Jose Collins M.D. 02/25/2018 8:46 PM Dictated Date/Time: 02/25/2018 8:46 PM
--- NOTE | 2018-02-25 20:47 | DIAGNOSTIC IMAGING REPORT ---
R KNEE 3 VIEWS CLINICAL HISTORY: Fall. Right knee/ankle injury trauma. Pain. COMPARISON: None. DISCUSSION: The bones and joint spaces appear intact. There is no evidence of fracture, dislocation or bony disease. There is no evidence for soft tissue swelling. IMPRESSION: Negative study. The above report was generated using voice recognition software. It may contain grammatical, syntax or spelling errors. Electronically signed by: Jose Collins M.D. 02/25/2018 8:45 PM Dictated Date/Time: 02/25/2018 8:45 PM
[2018-02-25 21:26] VITALS: BP 126/84; PULSE 88; O2SAT 97
--- NOTE | 2018-02-26 14:01 | EMERGENCY ROOM VISIT NOTE ---
History First contact with patient: 19:47 Chief Complaint: FALL Stated Complaint: FELL, LEG PAIN History of Present Illness The patient is a 57 year old female who presents to the Emergency Room with complaints of right leg pain after falling up stairs at her daughter's house today. The patient states that she was outside walking up the stairs, when she missed the last step, and fell onto her right leg. The patient did not strike her head or lose consciousness. She was able to ambulate after the injury. She does not report numbness or paresthesias and has not taken anything over-the -counter for her pain which she rates an 8/10. The patient does not have chronic issues with this extremity and does not report other complaints. Review of Systems More than 10 systems were reviewed and otherwise negative with the exception of history of present illness. Past Medical/Surgical History Medical Problems: (1) Abdominal pain (2) Cervicalgia (3) Depression with anxiety (4) DM type 2 (diabetes mellitus, type 2) (5) Gastroparesis (6) GERD (gastroesophageal reflux disease) (7) IBS (irritable bowel syndrome) (8) Moderate persistent asthma (9) Obesity Surgical Problems: (1) H/O dilation and curettage (2) H/O: hysterectomy (3) History of tonsillectomy and adenoidectomy (4) History of tubal ligation Social History Problems: (1) Herpes simplex Family History FH: cancer FATHER Heart disease Social History Smoking Status: Former Smoker Alcohol Use: none Drug Use: none Housing Status: lives with significant other Occupation Status: employed Current/Historical Medications Scheduled Amitriptyline HCl (Amitriptyline HCl), 100 MG PO HS Aspirin (Aspirin), 81 MG PO DAILY Atorvastatin (Lipitor), 80 MG PO HS Buspirone Hcl (Buspirone Hcl), 5 MG PO BID Duloxetine HCl (Duloxetine HCl), 60 MG PO DAILY Esomeprazole Magnesium (Esomeprazole Magnesium), 40 MG PO QAM Estradiol Vaginal (Estrace), 1 APPLN PV 2XWK Fluticasone Prop/Salmeterol (Advair Diskus 500/50 60 Dose), 1 PUFF INH BID Fluticasone Propionate (Fluticasone Propionate), 1 SPRAY JG BID Gabapentin (Neurontin), 300 MG PO AMPM Hydroxyzine Pamoate (Vistaril), 25 MG PO BID Insulin Detemir (Levemir Flextouch), 5 UNITS SC HS Lisinopril (Lisinopril), 2.5 MG PO DAILY Metformin HCl (Metformin HCl), 500 MG PO BIDM Metoclopramide Hcl (Reglan), 10 MG PO ACHS Mirabegron (Myrbetriq Er), 25 MG PO QAM Montelukast Sod (Montelukast Sodium), 10 MG PO DAILY Multivitamin (Multivitamin), 1 TAB PO DAILY Oxybutynin Chloride (Ditropan), 10 MG PO DAILY Polyethylene (Polyethylene Glycol 3350), 17 GM PO QAM Potassium Gluconate (Potassium Gluconate), 1,190 MG PO DAILY Ranitidine HCl (Ranitidine HCl), 150 MG PO HS Senna/Docusate Sod (Senokot S), 1 TAB PO QAM Scheduled PRN Acetaminophen (Tylenol), 1,000 MG PO Q6 PRN for Pain Dicyclomine Hcl (Dicyclomine Hcl), 10 MG PO QID PRN for Moderate Pain Ipratropium-Albuterol (Duoneb), 1 TREATMENT INH QID PRN for SOB/Wheezing Melatonin (Melatonin), 10 MG PO HS PRN for Sleep Promethazine HCl (Promethazine HCl), 25 MG PO Q6H PRN for Nausea Sucralfate (Sucralfate), 1 GM PO ACHS PRN for Stomach Pain Valacyclovir HCl (Valacyclovir HCl), 500 MG PO TID PRN for Outbreaks Physical Exam Vital Signs Date Time Temp Pulse Resp B/P (MAP) Pulse Ox O2 Delivery O2 Flow Rate FiO2 02/25/18 21:26 88 18 126/84 97 02/25/18 19:43 36.6 88 18 126/84 97 Room Air Physical Exam VITALS: Vitals are noted on the nurse's note and reviewed by myself. Vital signs stable. GENERAL: Well-developed, well-nourished, white female, who is in no acute distress and resting comfortably. Patient is cooperative with the examination. HEAD: Normocephalic atraumatic. NECK: Supple without nuchal rigidity. No lymphadenopathy. No thyromegaly. Cervical spine is nontender. HEART: Regular rate and rhythm without murmurs gallops or rubs. LUNGS: Clear to auscultation bilaterally without wheezes, rales or rhonchi. No retractions or accessory muscle use. ABDOMEN: Positive normal bowel sounds x 4. Soft, nontender, without masses or organomegaly. No guarding or rebound tenderness. MUSCULOSKELETAL: No muscle atrophy, erythema, or edema noted. Mild tenderness appreciated along the anterior aspect of the patella without ligamentous laxity in the right knee. There is mild edema to the lateral aspect of the right ankle. Neurovascular status is intact throughout. No significant abrasions or lacerations. NEURO: Patient was alert and oriented to person place and time. CN II through XII grossly intact. Medical Decision & Procedures ER Provider Diagnostic Interpretation: R ANKLE MIN 3 VIEWS ROUTINE CLINICAL HISTORY: Fall. Right knee/ankle injury pain COMPARISON: None. DISCUSSION: The bones and joint spaces appear intact. There is no evidence of fracture, dislocation or bony disease. There is no evidence for soft tissue swelling. IMPRESSION: Negative study. R KNEE 3 VIEWS CLINICAL HISTORY: Fall. Right knee/ankle injury trauma. Pain. COMPARISON: None. DISCUSSION: The bones and joint spaces appear intact. There is no evidence of fracture, dislocation or bony disease. There is no evidence for soft tissue swelling. IMPRESSION: Negative study. Medications Administered Medications (Trade) Dose Ordered Sig/Antony Route Start Time Stop Time Status Last Admin Dose Admin Acetaminophen (Tylenol Tab) 1,000 mg NOW STAT PO 02/25/18 19:56 02/25/18 19:58 DC 02/25/18 20:12 1,000 MG Ibuprofen (Motrin Tab) 600 mg NOW STAT PO 02/25/18 19:56 02/25/18 19:58 DC 02/25/18 20:12 600 MG ED Course Physical exam and history were performed. Nursing notes, EMR, and Medication List were personally reviewed. Patient appears to have fallen and suffered injury to her right knee and right ankle. She does not appear to have other injury on examination or by history. The patient was given ibuprofen and Tylenol here in the department for comfort. X-rays of the knee and ankle were performed and reviewed by myself and radiology as showing no acute process. Overall the patient appears well for discharge home. She does have ambulatory assistive devices at home, and does not wish for a walker or crutches from here. She is to use her walker at home to help with ambulation. The patient is to follow with her primary care physician later this week for recheck. She was otherwise invited back to the ER with any new, worsening, or concerning symptoms. The chart was completed utilizing [employer] Speech Voice Recognition Software. Grammatical errors, random word insertions, pronoun errors, and incomplete sentences are an occasional consequence of this system due to software limitations, ambient noise, and hardware issues. Any formal questions or concerns about the content, text, or information contained within the body of this dictation should be directly addressed to the provider for clarification. . Medical Decision Differential diagnosis includes, but is not limited to: Sprain, strain, fracture , dislocation, subluxation, contusion, and others Blood Pressure Screening Patient's blood pressure: Normal blood pressure Impression Primary Impression: Fall Additional Impression: Pain in right lower leg Departure Information Dispostion Home / Self-Care Condition GOOD Forms HOME CARE DOCUMENTATION FORM, IMPORTANT VISIT INFORMATION Patient Instructions My [facility] Additional Instructions You were seen and evaluated today on an emergency basis only. This is not a substitute for, or an effort to provide, complete comprehensive medical care. It is not possible to recognize and treat all injuries or illnesses in a single emergency department visit. For this reason it is recommended that you followup with your primary care physician this week for recheck of your condition. For baseline pain relief you may alternate ibuprofen and acetaminophen every 4 hours for pain control. Take 600 mg ibuprofen (Advil) and then 4 hours later take 1000 mg acetaminophen (Tylenol). Do not take more than 3000 mg acetaminophen in a single day. Use your walker from home to help with walking. You had a recent fall and this places you at a high risk for a second fall that could be much more damaging. You are welcome to return to the emergency department anytime with new, worsening, or concerning symptoms. Problem Qualifiers
== END 2018-02-25 21:29 | disposition home or self-care (01) ==
LOC: C.EDB 19:38 → C.EDD 21:29
DX: M79.604 Pain in right leg (principal); W10.9XXA Fall (on) (from) unspecified stairs and steps, initial encounter; F41.8 Other specified anxiety disorders; E11.43 Type 2 diabetes mellitus with diabetic autonomic (poly)neuropathy; K21.9 Gastro-esophageal reflux disease without esophagitis; K58.9 Irritable bowel syndrome, unspecified; E66.9 Obesity, unspecified; J45.40 Moderate persistent asthma, uncomplicated; Z90.710 Acquired absence of both cervix and uterus; Z98.51 Tubal ligation status; Z80.9 Family history of malignant neoplasm, unspecified; Z87.891 Personal history of nicotine dependence; Z79.82 Long term (current) use of aspirin; Z79.899 Other long term (current) drug therapy

== ENCOUNTER 2018-03-05 17:32 | Emergency (ER) | payer OTHER ==
[~2018-03-05] VITALS: Ht 154.9 cm; Wt 97.8 kg
[~2018-03-05 17:32] MED LIST changes: -ACET-1256 PO; -AMT100 PO; -ATOR-26 PO; -DICY10CA12 PO; -ESTCR PV; -FLNIN/ NAE; -IPRASOL4 INH; -LSN25 PO; -MELA1CAP9 PO; -METO-157 PO; -MIRA100T PO; -SENN-65 PO; -SNG10 PO; -VLT500 PO
[2018-03-05 17:41] VITALS: TEMP 36.8; Ht 154.9 cm; Wt 97.8 kg
[2018-03-05] MEDS ORDERED: METOCLOPRAMIDE HCL INJ 5 MG/ML 2 ML VIAL IV STA (18:08)
[2018-03-05] MEDS ORDERED: FAMOTIDINE 20MG/5ML IV PUSH IV STA (18:08)
[2018-03-05] MEDS ORDERED: SODIUM CHLORIDE 0.9% 1000ML 1,000 ML IV STA ×2 (18:08→19:06)
[2018-03-05] MEDS ORDERED: ESTCR PV (18:18)
[2018-03-05] MEDS ORDERED: GABA-1219 PO (18:36)
[2018-03-05] MEDS ORDERED: VST25HP PO (18:36)
[2018-03-05] MEDS ORDERED: ESOM45CA PO (18:36)
[2018-03-05] MEDS ORDERED: BSP/5 PO (18:36)
[2018-03-05] MEDS ORDERED: ASPI81TA28 PO (18:36)
--- NOTE | 2018-03-05 18:36 | EMERGENCY ROOM VISIT NOTE ---
History Report prepared by Tamera: Analilia Mustafa Under the Supervision of: Dr. Hemant Weems M.D. First contact with patient: 17:59 Chief Complaint: ABDOMINAL PAIN Stated Complaint: STOMACH PAIN, VOMITING History of Present Illness The patient is a 57 year old female who presents to the Emergency Room with complaints of constant abdominal pain beginning yesterday. The patient also reports nausea and vomiting. She reports about 5 episodes of vomiting since last night. The patient has a history of gastroparesis and diverticulitis. She reports she ate a ham sandwich yesterday. She also ate eggs and toast this morning. The patient also reports a cough and shortness of breath which is normal for her. She denies any chest pain, fever, chills, congestion, or urinary burning. She reports taking promethazine with minimal relief. She has been taking all of her medications as prescribed. The patient follows up with Salomón MCCOY at [facility]. She reports her symptoms feel like her gastroparesis. She has a history of diabetes. Source of History: patient Onset: yesterday Position: abdomen Quality: other (pain) Timing: constant Associated Symptoms: + cough, + SOB, + nausea, + vomiting, + abdominal pain , No fevers, No chills, No chest pain, No urinary symptoms Review of Systems See HPI for pertinent positives and negatives. A total of ten systems were reviewed and were otherwise negative. Past Medical & Surgical Medical Problems: (1) Abdominal pain (2) Cervicalgia (3) Depression with anxiety (4) DM type 2 (diabetes mellitus, type 2) (5) Gastroparesis (6) GERD (gastroesophageal reflux disease) (7) IBS (irritable bowel syndrome) (8) Moderate persistent asthma (9) Obesity Surgical Problems: (1) H/O dilation and curettage (2) H/O: hysterectomy (3) History of tonsillectomy and adenoidectomy (4) History of tubal ligation Social History Problems: (1) Herpes simplex Family History FH: cancer FATHER Heart disease Social History Smoking Status: Former Smoker Alcohol Use: none Drug Use: none Housing Status: lives with significant other Occupation Status: employed Current/Historical Medications Scheduled Amitriptyline HCl (Amitriptyline HCl), 100 MG PO HS Aspirin (Aspirin Ec), 81 MG PO DAILY Atorvastatin (Lipitor), 80 MG PO HS Buspirone HCl (Buspirone HCl), 5 MG PO BID Duloxetine HCl (Duloxetine HCl), 60 MG PO DAILY Esomeprazole Magnesium (Esomeprazole Magnesium), 20 MG PO QAM Estradiol Vaginal (Estrace), 1 APPLN PV 2XWK Fluticasone Prop/Salmeterol (Advair Diskus 500/50 60 Dose), 1 PUFF INH BID Fluticasone Propionate (Fluticasone Propionate), 1 SPRAY JG BID Gabapentin (Gabapentin), 300 MG PO AMPM Hydroxyzine HCl (Hydroxyzine Pamoate), 25 MG PO BID Insulin Detemir (Levemir Flextouch), 5 UNITS SC HS Lisinopril (Lisinopril), 2.5 MG PO DAILY Metformin HCl (Metformin HCl), 500 MG PO BIDM Metoclopramide Hcl (Reglan), 10 MG PO ACHS Mirabegron (Myrbetriq Er), 25 MG PO QAM Montelukast Sod (Montelukast Sodium), 10 MG PO DAILY Multivitamin (Multivitamin), 1 TAB PO DAILY Oxybutynin Chloride (Ditropan), 10 MG PO DAILY Polyethylene (Polyethylene Glycol 3350), 17 GM PO QAM Potassium Gluconate (Potassium Gluconate), 1,190 MG PO DAILY Ranitidine HCl (Ranitidine HCl), 150 MG PO HS Senna/Docusate Sod (Senokot S), 1 TAB PO QAM Scheduled PRN Acetaminophen (Tylenol), 1,000 MG PO Q6H PRN for Pain Dicyclomine Hcl (Dicyclomine Hcl), 10 MG PO QID PRN for Moderate Pain Ipratropium-Albuterol (Duoneb), 1 TREATMENT INH QID PRN for SOB/Wheezing Melatonin (Melatonin), 10 MG PO HS PRN for Sleep Promethazine HCl (Promethazine HCl), 25 MG PO Q6H PRN for Nausea Sucralfate (Sucralfate), 1 GM PO ACHS PRN for Stomach Pain Valacyclovir HCl (Valacyclovir HCl), 500 MG PO TID PRN for Outbreaks Allergies Coded Allergies: Hydromorphone (Verified Allergy, Severe, itching, 02/25/18) Ondansetron (Verified Allergy, Intermediate, hives; RASH, 02/25/18) Sulfa Antibiotics (Verified Allergy, Intermediate, rash, 02/25/18) Aminoglycosides (Verified Allergy, Unknown, >, 02/25/18) Bacitracin (Verified Allergy, Unknown, >, 02/25/18) Ceftriaxone (Verified Allergy, Unknown, Rash, hives and itchiness., ) Cephalexin (Verified Allergy, Unknown, hives, 02/25/18) Latex1 -Allergic Contact Dermititis (Verified Allergy, Unknown, 02/25/18) Neomycin (Verified Allergy, Unknown, >, 02/25/18) Polymyxin B (Verified Allergy, Unknown, >, 02/25/18) Sulfamethoxazole w/Trimethoprim (Verified Allergy, Unknown, Unknown, ) Physical Exam Vital Signs Date Time Temp Pulse Resp B/P (MAP) Pulse Ox O2 Delivery O2 Flow Rate FiO2 03/05/18 20:21 80 18 130/76 98 Room Air 03/05/18 19:14 84 20 114/98 99 Room Air 03/05/18 17:41 36.8 104 18 136/87 97 Room Air Physical Exam GENERAL: Awake, alert, fatigued and uncomfortable-appearing, in no distress HENT: Normocephalic, atraumatic. Oropharynx unremarkable. Dry MM. EYES: Normal conjunctiva. Sclera non-icteric. NECK: Supple. No nuchal rigidity. FROM. No JVD. RESPIRATORY: Clear to auscultation. CARDIAC: Regular rate, normal rhythm. Extremities warm and well perfused. Pulses equal. ABDOMEN: Generalized abdominal discomfort, no discrete tenderness. Soft, non- distended. No rebound or guarding. No masses. RECTAL: Deferred. MUSCULOSKELETAL: Chest examination reveals no tenderness. The back is symmetrical on inspection without obvious abnormality. There is no CVA tenderness to palpation. No joint edema. LOWER EXTREMITIES: Calves are equal size bilaterally and non-tender. No edema. No discoloration. NEURO: Normal sensorium. No sensory or motor deficits noted. SKIN: No rash or jaundice noted. Medical Decision & Procedures Laboratory Results 03/05/18 18:22 Red Blood Count 5.12, Mean Corpuscular Volume 77.9, Mean Corpuscular Hemoglobin 27.1, Mean Corpuscular Hemoglobin Concent 34.8, Mean Platelet Volume 8.7, Neutrophils (%) (Auto) 60.7, Lymphocytes (%) (Auto) 31.0, Monocytes (%) (Auto) 7.2, Eosinophils (%) (Auto) 0.7, Basophils (%) (Auto) 0.1, Neutrophils # (Auto) 9.82, Lymphocytes # (Auto) 5.01, Monocytes # (Auto) 1.17, Eosinophils # (Auto) 0.11, Basophils # (Auto) 0.02 03/05/18 18:22 Test 03/05/18 18:22 White Blood Count 16.18 K/uL (4.8-10.8) Red Blood Count 5.12 M/uL (4.2-5.4) Hemoglobin 13.9 g/dL (12.0-16.0) Hematocrit 39.9 % (37-47) Mean Corpuscular Volume 77.9 fL (80-100) Mean Corpuscular Hemoglobin 27.1 pg (25-34) Mean Corpuscular Hemoglobin Concent 34.8 g/dl (32-36) Platelet Count 442 K/uL (130-400) Mean Platelet Volume 8.7 fL (7.4-10.4) Neutrophils (%) (Auto) 60.7 % Lymphocytes (%) (Auto) 31.0 % Monocytes (%) (Auto) 7.2 % Eosinophils (%) (Auto) 0.7 % Basophils (%) (Auto) 0.1 % Neutrophils # (Auto) 9.82 K/uL (1.4-6.5) Lymphocytes # (Auto) 5.01 K/uL (1.2-3.4) Monocytes # (Auto) 1.17 K/uL (0.11-0.59) Eosinophils # (Auto) 0.11 K/uL (0-0.5) Basophils # (Auto) 0.02 K/uL (0-0.2) RDW Standard Deviation 40.2 fL (36.4-46.3) RDW Coefficient of Variation 14.1 % (11.5-14.5) Immature Granulocyte % (Auto) 0.3 % Immature Granulocyte # (Auto) 0.05 K/uL (0.00-0.02) Hypersegmented Polys 1+ Anion Gap 9.0 mmol/L (3-11) Est Creatinine Clear Calc Drug Dose 74.5 ml/min Estimated GFR () 84.5 Estimated GFR (Non- 72.9 BUN/Creatinine Ratio 14.4 (10-20) Calcium Level 9.3 mg/dl (8.5-10.1) Phosphorus Level 4.4 mg/dl (2.5-4.9) Magnesium Level 2.1 mg/dl (1.8-2.4) Total Bilirubin 0.3 mg/dl (0.2-1) Direct Bilirubin < 0.1 mg/dl (0-0.2) Aspartate Amino Transf (AST/SGOT) 16 U/L (15-37) Alanine Aminotransferase (ALT/SGPT) 47 U/L (12-78) Alkaline Phosphatase 175 U/L (45-117) Troponin I < 0.015 ng/ml (0-0.045) Total Protein 8.0 gm/dl (6.4-8.2) Albumin 3.8 gm/dl (3.4-5.0) Lipase 243 U/L (73-393) Laboratory results reviewed by me Medications Administered Medications (Trade) Dose Ordered Sig/Antony Route Start Time Stop Time Status Last Admin Dose Admin Sodium Chloride 1,000 ml @ 999 mls/hr Q1H1M STAT IV 03/05/18 18:08 03/05/18 19:08 DC 03/05/18 18:08 999 MLS/HR Metoclopramide HCl (Reglan Inj) 10 mg NOW STAT IV 03/05/18 18:08 03/05/18 18:14 DC 03/05/18 18:36 10 MG Famotidine (Pepcid 20mg Iv Push) 20 mg ONE STAT IV 03/05/18 18:08 03/05/18 18:14 DC 03/05/18 18:36 20 MG Sodium Chloride 1,000 ml @ 999 mls/hr Q1H1M STAT IV 03/05/18 19:06 03/05/18 20:06 DC 03/05/18 19:13 999 MLS/HR Haloperidol Lactate (Haldol Inj) 5 mg NOW STAT IM 03/05/18 19:06 03/05/18 19:08 DC 03/05/18 19:13 5 MG Diphenhydramine HCl (Benadryl Inj) 25 mg NOW STAT IV 03/05/18 19:06 03/05/18 19:08 DC 03/05/18 19:13 25 MG ED Course 180: The patient was evaluated in room C11B. A complete history and physical exam was performed. 2044: I reevaluated the patient. Discussed results and discharge instructions: She verbalized understanding and agreement. The patient is ready for discharge. Medical Decision I reviewed the patient's past medical history, medications, and the nursing notes as described above. Differential diagnosis: Etiologies such as gastroenteritis, food borne illness, infections, appendicitis , diverticulitis, inflammatory bowel disease, obstruction, GI bleed, biliary pathology, as well as others were entertained. The patient is a 57-year-old woman with a past medical history of gastroparesis who presents to emergency department with nausea and vomiting that began last night per hpi. Of note, despite the patient's symptoms beginning last night she did have a ham sandwich and then this morning ate eggs for breakfast. On arrival the patient is fatigued and uncomfortable but no acute distress, afebrile stable vital signs. WBC 16, nonspecific. Chemistry unremarkable. Patient was given IV fluids, Reglan, Pepcid. However, symptoms were persisting. She was subsequently given Haldol, Benadryl with additional IV fluids with subsequent resolution of her nausea. She was able to tolerate oral fluids without difficulty. Denies any use of cannabis. Thus, symptoms most likely related to her chronic gastroparesis. Plan for PCP follow-up. Findings and plan for follow-up reviewed with patient. Patient agreeable and d/c'd per discharge instructions. Medication Reconcilliation Current Medication List: was personally reviewed by me Blood Pressure Screening Patient's blood pressure: Normal blood pressure Impression Primary Impression: Gastroparesis Additional Impression: Intractable cyclical vomiting Scribe Attestation The scribe's documentation has been prepared under my direction and personally reviewed by me in its entirety. I confirm that the note above accurately reflects all work, treatment, procedures, and medical decision making performed by me. Departure Information Dispostion Home / Self-Care Referrals Cipriano Peña M.D. (MEDICAL) (PCP) Forms Call Back Authorization, HOME CARE DOCUMENTATION FORM, IMPORTANT VISIT INFORMATION Patient Instructions ED Diabetic Gastroparesis, ED Nausea Vomiting, Gastroparesis, My [facility] Additional Instructions Please follow up with your primary care physician in the next 1-3 days for re- evaluation. Your symptoms are most likely related to your gastroparesis. Otherwise, your exam, EKG, chest xray, and lab results did not show signs of an emergent condition at this time. Continue your current medications. Bowel rest for the next 24 hours and advance diet thereafter as tolerated. Drink plenty of fluids to ensure hydration. Return to the emergency department for worsening symptoms as described in the accompanying instructions. Problem Qualifiers
[2018-03-05 18:38] LABS: HEMATOCRIT 39.9 % (37-47); HEMOGLOBIN 13.9 g/dL (12.0-16.0); MEAN CELL VOLUME 77.9 fL (80-100); MEAN CORPUSCULAR HEMOGLOBIN 27.1 pg (25-34); MEAN CORPUSCULAR HGB CONC 34.8 g/dl (32-36); MEAN PLATELET VOLUME 8.7 fL (7.4-10.4); PLATELET COUNT 442 K/uL (130-400); RED CELL DISTRIBUTION WIDTH CV 14.1 % (11.5-14.5); RED CELL DISTRIBUTION WIDTH SD 40.2 fL (36.4-46.3); WHITE BLOOD COUNT 16.18 K/uL (4.8-10.8)
[2018-03-05 19:00] LABS: BASO % 0.1 %; BASO ABS # 0.02 K/uL (0-0.2); EOS % 0.7 %; EOS ABS # 0.11 K/uL (0-0.5); IG# 0.05 K/uL (0.00-0.02); LYMPH ABS # 5.01 K/uL (1.2-3.4); MONO % 7.2 %; MONO ABS # 1.17 K/uL (0.11-0.59); NEUT % 60.7 %; NEUT ABS # 9.82 K/uL (1.4-6.5)
[2018-03-05 19:02] LABS: ALBUMIN 3.8 gm/dl (3.4-5.0); ALT/SGPT 47 U/L (12-78); AST/SGOT 16 U/L (15-37); BLOOD UREA NITROGEN 13 mg/dl (7-18); CALCIUM 9.3 mg/dl (8.5-10.1); CARBON DIOXIDE 23 mmol/L (21-32); CREATININE 0.87 mg/dl (0.60-1.20); GLUCOSE 130 mg/dl (70-99); LIPASE 243 U/L (73-393); PHOSPHORUS 4.4 mg/dl (2.5-4.9); POTASSIUM 3.7 mmol/L (3.5-5.1); SODIUM 133 mmol/L (136-145)
[2018-03-05 19:04] LABS: ALKALINE PHOSPHATASE 175 U/L (45-117)
[2018-03-05] MEDS ORDERED: HALOPERIDOL LACTATE 5 MG/ML 1 ML VIAL IM STA (19:06)
[2018-03-05] MEDS ORDERED: DiphenhydrAMINE HCL 50 MG/ML VIAL IV STA (19:06)
[2018-03-05] MEDS ORDERED: SNG10 PO (19:14)
[2018-03-05] MEDS ORDERED: MELA1CAP9 PO (19:14)
[2018-03-05] MEDS ORDERED: VLT500 PO (19:28)
[2018-03-05] MEDS ORDERED: SENN-65 PO (20:07)
[2018-03-05 20:21] VITALS: BP 130/76; PULSE 80; O2SAT 98
[2018-03-05] MEDS ORDERED: FLNIN/ NAE (20:57)
[2018-03-05] MEDS ORDERED: METO-157 PO (21:00)
[2018-03-05] MEDS ORDERED: ACET-1256 PO (21:07)
[2018-03-05] MEDS ORDERED: ATOR-26 PO (21:11)
[2018-03-05] MEDS ORDERED: LSN25 PO (21:39)
[2018-03-05] MEDS ORDERED: DICY10CA12 PO (21:39)
[2018-03-05] MEDS ORDERED: AMT100 PO (21:46)
[2018-03-05] MEDS ORDERED: MIRA100T PO (21:50)
[2018-03-05] MEDS ORDERED: IPRASOL4 INH (22:43)
== END 2018-03-05 20:39 | disposition home or self-care (01) ==
LOC: C.EDB 17:33 → C.EDC 20:39
DX: K31.84 Gastroparesis (principal); G43.A1 Cyclical vomiting, in migraine, intractable; F32.9 Major depressive disorder, single episode, unspecified; K58.9 Irritable bowel syndrome, unspecified; E11.9 Type 2 diabetes mellitus without complications; J45.40 Moderate persistent asthma, uncomplicated; F41.8 Other specified anxiety disorders; Z87.891 Personal history of nicotine dependence; Z79.82 Long term (current) use of aspirin; Z79.899 Other long term (current) drug therapy; Z79.4 Long term (current) use of insulin; Z90.710 Acquired absence of both cervix and uterus; Z88.8 Allergy status to other drugs, medicaments and biological substances; Z91.040 Latex allergy status

== ENCOUNTER → 2018-06-23 | Outpatient (CLI) | payer OTHER ==
[~2018-06-23] MED LIST changes: +ACET-1256 PO; -ADVIN50/60 INH; +AMT100 PO; -ASPI1TAB83 PO; +ASPI81TA28 PO; +ATOR-26 PO; +DICY10CA12 PO; -ESOM1CAP34 PO; +ESOM45CA PO; +FLNIN/ NAE; -GABA-113 PO; +GABA-1219 PO; +IPRA-64 INH; +LSN25 PO; +MELA1CAP9 PO; +METO-157 PO; +MIRA100T PO; +SENN-65 PO; +SNG10 PO; +VLT500 PO
--- NOTE | 2018-06-26 13:56 | MAMMOGRAPHY REPORT ---
BILATERAL DIGITAL SCREENING MAMMOGRAM TOMOSYNTHESIS WITH CAD: 06/23/2018 CLINICAL HISTORY: Routine screening. Patient has no complaints. TECHNIQUE: Breast tomosynthesis in addition to standard 2D mammography was performed. Current study w as also evaluated with a Computer Aided Detection (CAD) system. COMPARISON: Comparison is made to exams dated: 02/28/2017 mammogram, 02/26/2016 mammogram, 02/24/2015 ma mmogram, 02/21/2014 mammogram, 02/20/2013 mammogram, and 02/21/2012 mammogram - [facility] nter. BREAST COMPOSITION: The tissue of both breasts is almost entirely fatty. FINDINGS: No suspicious masses, calcifications, or areas of architectural distortion are noted in either breast . There has been no significant interval change compared to prior exams. IMPRESSION: ACR BI-RADS CATEGORY 1: NEGATIVE There is no mammographic evidence of malignancy. A 1 year screening mammogram is recommended.( 019) The patient will receive written notification of the results. Some breast cancers are not detected with mammography. A negative mammographic report should not hai y biopsy if a clinically suggestive mass is present. Sandra Gilbert M.D. ah/:06/23/2018 15:23:02 Tapeman: RT Addison(Mara)(M)(BD), [facility] letter sent: Normal 1/2 BI-RADS Code: ACR BI-RADS Category 1: Negative
== END | disposition home or self-care (01) ==
LOC: C.MAMM 12:36
PROVIDERS: ATTEND Obstetrics & Gynecology
DX: Z12.31 Encounter for screening mammogram for malignant neoplasm of breast (principal)

== ENCOUNTER 2024-04-08 15:07 | Observation (INO) ==
--- OUTSIDE RECORDS SUMMARY | 2024-04-08 15:14 | External Medical Summary | Summary of Care ---
Author Name Unknown Organization [facility] Address [address] [facility] [address] Phone [phone] Care Team Providers Care Director Sales Name Role Phone Lima Riggins DO Primary Care Provider + [phone] Reason for Visit * Reason Comments eRx-Medication Refill Encounter Details Date Type Department Care Team (Late st Contact Info) Description 04/05/2024 Refill [facility] [address] [place] [address] Lima Riggins DO [address] [place] [address] Allergies Active Allergy Reactions Criticality Noted Date Comments Clindamycin 08/24/2019 rash Hydromorphone Hcl Itching 06/29/2011 No rash Gabapentin Itching 12/11/2018 Cephalexin 12/05/2015 Urticarial rash Latex Rash 09/10/2003 Local contact rash Mupirocin 01/04/2022 Soreness at nose Neomycin-Bacitracin Zn-Polymyx Other (Please comment) 01/16/2009 Swelling of hands- topical only Ceftriaxone Rash 12/05/2015 Sulfa Antibiotics Hives 09/10/2003 Zofran Rash 05/05/2010 All over legs documented as of this encounter (statuses as of 04/05/2024) Medications Medication Sig Dispensed Refills Start Date End Date Status POTASSIUM GLUCONATE 595 MG PO CAPS Take by mouth. Pt taking 99 mg twice daily 3 Active NEBULIZER COMPRESSOR MISCIndications:Mo derate persistent asthma,Asthma flare Use as directed 1 Each 1 3 Active NEBULIZER/TUBING/M OUTHPIECE KITIndications:Mod erate persistent asthma,Asthma flare use with nebulizer 1 Kit 1 3 Active Multiple Vitamins-Minerals (DAILY MULTIVITAMIN) CAPS Take by mouth. Ac tive Vitamin D 125 MCG (5000 UT) Oral Capsule Take by mouth. Active Benefiber Oral Powder Take 4 g by mouth daily. 730 g 12 1 Active Vitamin B12 1000 MCG Oral Tablet Extended Release Take by mouth. Acti ve Accu-Chek Guide w/Device Kit Use to test blood glucose twice daily; E11.9 1 Kit 1 Active Cinnamon Plus Chromium 200-1000 MCG-MG Oral Capsule (Chromium-Cinnamon ) Take by mouth . Active Calcium 500-125 MG-UNIT Oral Tablet Take by mouth 1 Tablet in the morning. At noon . Active Iron 325 (65 Fe) MG Oral Tablet Take by mouth daily . At noon Active Albuterol Sulfate HFA 108 (90 Base) MCG/ACT Inhalation Aerosol Solution Inhale 2 Puffs by mouth every 4 hours as needed for Wheezing. 8 g 5 3 Active Dicyclomine HCl 10 MG Oral Capsule (Bentyl) TAKE 1 CAPSULE IN MORNING, AT NOON, IN THE EVENING, AND AT BEDTIME NEEDED FOR CRAMPING 90 Capsule 3 3 Active Cetirizine HCl 10 MG Oral Tablet (ZyrTEC) Take 1 Tablet by mouth in the morning. 90 Tablet 3 3 Active valACYclovir HCl 500 MG Oral Tablet (Valtrex)Indicatio ns:Herpes simplex infection of genitourinary system Take 1 Tablet by mouth in the morning and 1 Tablet at noon and 1 Tablet before bedtime. For recurrent episode. 18 Tablet 11 3 Active metFORMIN HCl ER 500 MG Oral Tablet Extended Release 24 Hour (Glucophage XR) TAKE 2 TABLETS (1,000 MG) IN THE MORNING 180 Tablet 2 3 Active Ketoconazole 2 % External Shampoo (Nizoral) Apply ketoconazole shampoo 3 days in a row, leaving on for 5 min before rinsing. Then repeat 1-2 times weekly as needed 120 mL 4 3 Active Additional Information Patient not taking.Reported on 02/27/2024 Accu-Chek Softclix Lancets TEST BLOOD SUGAR TWICE DAILY 200 Each 3 3 Active Accu-Chek Guide In Vitro Strip (Glucose Blood) TEST BLOOD SUGAR TWICE DAILY 200 Strip 3 3 Active Atorvastatin Calcium 80 MG Oral Tablet (Lipitor) TAKE 1 TABLET AT BEDTIME 90 Tablet 2 3 Active Esomeprazole Magnesium 40 MG Oral Capsule Delayed Release TAKE 1 CAPSULE EVERY DAY BEFORE BREAKFAST 90 Capsule 10 3 Active traZODone HCl 100 MG Oral Tablet (Desyrel)Indicatio ns:Primary insomnia TAKE 1 TABLET AT BEDTIME 90 Tablet 3 3 Active Doxycycline Hyclate 100 MG Oral CapsuleIndications :Acute maxillary sinusitis, recurrence not specified TAKE 1 CAPSULE IN THE MORNING AND 1 CAPSULE BEFORE BEDTIME UNTIL GONE 20 Capsule 3 3 Active Additional Information Patient not taking.Reported on 03/30/2024 busPIRone HCl 10 MG Oral Tablet (Buspar)Indication s:Depression with anxiety Take 1 Tablet by mouth in the morning and 1 Tablet before bedtime. 180 Tablet 5 4 Active hydrOXYzine HCl 25 MG Oral TabletIndications: Neurodermatitis Take 1 Tablet by mouth every 6 hours as needed for Anxiety or Itching. 40 Tablet 2 4 Active Additional Information Patient not taking.Reported on 02/03/2024 Montelukast Sodium 10 MG Oral Tablet (Singulair)Indicat ions:Moderate persistent asthma without complication Take 1 Tablet by mouth daily. 90 Tablet 3 4 Active Colestipol HCl 1 GM Oral Tablet (Colestid)Indicati ons:Chronic diarrhea Take 1 Tablet by mouth in the morning. 90 Tablet 3 4 Active Ipratropium-Albute rol 0.5-2.5 (3) MG/3ML Inhalation Solution (Duoneb) Inhale 3 mL via nebulizer in the morning and 3 mL at noon and 3 mL in the evening and 3 mL before bedtime. 100 mL 4 Active Ipratropium-Albute rol 0.5-2.5 (3) MG/3ML Inhalation Solution (Duoneb) Inhale 3 mL via nebulizer in the morning and 3 mL at noon and 3 mL in the evening and 3 mL before bedtime. 100 mL 3 4 Active Diclofenac Sodium 75 MG Oral Tablet Delayed Release (Voltaren) Take 1 Tablet by mouth 2 times a day as needed. 3 Active Oxymetazoline HCl 0.05 % Nasal Solution Administer 2 Sprays into each nostril 2 times a day as needed for Congestion (for congestion). Do not use for more than three days. 20 mL 4 Active Additional Information Patient not taking.Reported on 02/27/2024 DULoxetine HCl 60 MG Oral Capsule Delayed Release Particles (Cymbalta)Indicati ons:Depression, major, recurrent, in remission (HCC),Depression with anxiety TAKE 1 CAPSULE EVERY DAY 90 Capsule 3 4 Active Lisinopril 5 MG Oral Tablet (Prinivil) TAKE 1 TABLET EVERY MORNING 90 Tablet 3 4 Active Metoclopramide HCl 5 MG Oral Tablet (Reglan) TAKE 1 TABLET IN THE MORNING AND TAKE 1 TABLET IN THE EVENING 180 Tablet 3 4 Active Spiriva Respimat 2.5 MCG/ACT Inhalation Aerosol Solution (Tiotropium [place] Monohydrate) INHALE 2 PUFFS EVERY MORNING 12 g 3 4 Active oxyBUTYnin Chloride ER 10 MG Oral Tablet Extended Release 24 Hour (Ditropan XL) Take 1 Tablet by mouth in the morning. 90 Tablet 3 4 Active Mirabegron ER 50 MG Oral Tablet Extended Release 24 Hour (Myrbetriq) Take 1 Tablet by mouth in the morning. 90 Tablet 3 4 Active Famotidine 40 MG Oral Tablet (Pepcid) TAKE 1 TABLET IN THE MORNING 90 Tablet 3 4 Active Famotidine 40 MG Oral Tablet (Pepcid) Take 1 Tablet by mouth at bedtime. 90 Tablet 3 3 04/05/20 24 Discontinued documented as of this encounter (statuses as of 04/05/2024) Active Problems Problem Noted Date Diagnosed Date Sprain of left wrist 03/13/2021 Dupuytren's disease of palm 12/05/2020 Depression, major, recurrent, in remission 08/11 Diabetic polyneuropathy asso ciated with type 2 diabetes mellitus 08/22/2017 H/O: hysterectomy 04/26/2017 Incontinence without sensory awareness 7 Prolapse of vaginal vault after hysterectomy 07/2017 Dyslipidemia, goal LDL below 70 10/21/2016 History of Clostridium difficile colitis 016 Chronic back pain 01/19/2016 Moderate persistent asthma 04/12/2013 Facet arthropathy, cervical 03/17/2012 Cervical spondylosis 03/17/2012 Depression with anxiety 03/17/2012 Esophageal reflux 03/17/2012 Irritable bowel syndrome 03/17/2012 Gastroparesis 03/17/2012 Vitamin D deficiency 10/14/2011 Steatohepatitis, non-alcoholic documented as of this encounter (statuses as of 04/05/2024) Resolved Problems Problem Noted Date Diagnosed Date Resolved Date Morbid obesity due to excess calories 08/11/2018 2023 Inflammation of right sacroiliac joint 08/11/2018 11/10/2018 BMI 40.0-44.9, adult 01/03/2018 018 Overview: bmi= 41.08 01/03/18 Morbid obesity due to excess calories 01/03/2018 02/07/2018 Sacroiliac joint dysfunction of right side 08/22/2017 11/17/2017 Body mass index (BMI) of 40. 0 to 44.9 in adult 08/09/2017 08/22/2017 Overview: Per Obesity protocol #1 Advanced directives, counseling/discussion 08/01/2017 08/04/2017 RUQ abdominal pain 04/06/2017 7 Fatty liver 03/18/2017 08/04/2017 Sigmoid diverticulosis 03/18/201705/25 Urge incontinence of urine 03/09/2017 1 Urinary retention with incom plete bladder emptying 03/09/2017 03/16/2017 YOLANDA (stress urinary incontinence, female) 03/09/2017 08/04/2017 Cystocele, lateral 03/09/2017 8 Concussion with loss of cons ciousness <= 30 min 03/02/2017 08/04/2017 Closed head injury 02/22/2017 10/05/201 7 Adult BMI 40.0-44.9 kg/sq m 01/10/2017 08/04/2017 Overview: bmi= 40.52 01/10/17 C. difficile colitis 07/23/2016 017 Debility 03/08/2016 08/04/2017 Right lower lobe pneumonia 02/18/2016 0 07/21/2016 Atelectasis of both lungs 02/18/2016 Volume depletion 02/18/2016 07/21/2016 Slow transit constipation 02/18/2016 Sleep disturbance 02/10/2016 07/21/2016 Viral URI with cough 01/27/2016 016 Costochondritis, acute 01/27/201607/21 Sinus congestion 01/27/2016 07/21/2016 Syncope and collapse 01/19/2016 016 Hypomagnesemia 01/19/2016 08/04/2017 Hyponatremia 01/19/2016 08/04/2017 Ankle weakness 01/19/2016 07/21/2016 Hepatic steatosis 12/15/2015 07/21/2016 Body mass index (BMI) of 40.0-44.9 in adult 10/14/2015 01/25/2017 Overview: bmi= 41.07 10/14/15 Tobacco use disorder 10/14/2015 016 Inflammation of right sacroiliac joint 10/14/2015 01/25/2017 Severe obesity with body mas s index (BMI) of 35.0 to 39.9 with serious comorbidity 02/05/2014 Overview: bmi= 38.64 02/05/14 ICD-10 update of inactive diagnosis Other chest pain 02/05/2014 02/18/2015 LUQ abdominal pain 02/05/2014 5 Hypotension 02/05/2014 02/18/2015 HTN, goal below 140/90 02/05/201407/21 Anxiety 02/05/2014 07/21/2016 Dyslipidemia, goal LDL below 130 01/01/2014 10/21/2016 Other chest pain 01/18/2013 08/20/2014 Routine medical exam 12/12/2012 016 Backache 12/12/2012 01/25/2017 Complicated acute bronchitis 11/23/2012 02/18/2015 Costochondritis, acute 11/23/201202/18 Cough 11/23/2012 02/18/2015 Stress 11/23/2012 02/18/2015 Acute pancreatitis 09/07/2012 5 Obesity, morbid (more than 1 00 lbs over ideal weight or BMI > 40) 03/17/2012 02/18/2015 Overview: bmi= 43.31 03/17/12 Cervicalgia 03/17/2012 01/25/2017 Asthma, mild persistent 03/17/201203/31 Insomnia 03/17/2012 07/21/2016 Overview: ICD-10 update of inactive term Dyslipidemia, goal LDL below 100 12/14/2011 01/01/2014 [place] 11/12/2011 02/18/2015 Leukocytosis (leucocytosis) 10/29/2011 07/21/2016 Chest pain 10/29/2011 02/18/2015 Migraine 10/29/2011 02/18/2015 Urticaria 06/29/2011 02/18/2015 Dermatitis 06/29/2011 08/20/2014 Abdominal pain, generalized 06/14/2011 02/18/2015 PANCREAS ANOMALIES, 1.2 cm node 06/14/2011 02/18/2015 Abnormal results of liver function studies 06/14/2011 08/20/2014 Insomnia 05/07/2011 03/17/2012 Overview: ICD-10 update of inactive term myofascial pain 03/17/2011 08/20/2014 GERD (gastroesophageal reflux disease) 12/17/2010 08/20/2014 Gastroparesis 12/17/2010 03/17/2012 Type 2 diabetes mellitus wit h hemoglobin A1c goal of less than 7.0% 12/08/2010 08/22/2017 Overview: ICD-10 update of inactive term Acute diarrhea 11/06/2010 08/20/2014 MORBID OBESITY, BMI= 42.57 10/05/10 10/05/2010 01/25/2017 Spasm of muscle 10/05/2010 08/20/2014 Chest pain 07/16/2010 03/17/2012 Diverticulosis of colon 06/11/201008/01 Lumbago 05/14/2010 03/17/2012 Generalized osteoarthritis 05/14/2010 1 NONALLERGIC RHINITIS 03/13/2010 015 Obesity, morbid (more than 1 00 lbs over ideal weight or BMI > 40) 01/27/2010 01/25/2017 Overview: Per Obesity Taxonomy ICD-10 update of inactive term Elevated blood pressure, situational 01/09/2010 08/20/2014 SACROILIITIS, LEFT 12/19/2009 4 Backache 12/04/2009 08/20/2014 Overweight (BMI 25.0-29.9) 12/04/2009 0 01/27/2010 Overview: Per Obesity Taxonomy Irritable bowel syndrome 12/04/2009 Urinary tract infection 12/04/200908/01 Need for influenza vaccination 12/04/2009 03/13/2010 Family history of diabetes mellitus 08/26/2009 08/20/2014 Esophageal reflux 06/13/2009 03/17/2012 Shoulder joint pain 03/03/2009 08/20/20 14 Hemorrhage of rectum and anus 03/03/2009 08/20/2014 External hemorrhoids with other complication 9 08/20/2014 Need for pneumococcal vaccination 03/03/2009 03/13/2010 GERD (gastroesophageal reflux disease) 12/30/2008 03/27/2010 Allergic rhinitis 12/03/2008 03/13/2010 Organic sleep disorder 12/03/200808/20 Overview: 03/16/11 Noct ox RA -- low 83%, mean 96%, time <=88% 40 sec, MARIAM 2 PSG did not show AYAAN. MORBID OBESITY, BMI= 42.5 12/03/2008 Routine medical exam 12/03/2008 010 Menopause 12/03/2008 08/20/2014 Migraine 05/21/2004 10/29/2011 Major depressive disorder 05/21/2004 Overview: ICD-10 update of inactive term GERD (gastroesophageal reflux disease) 05/21/2004 12/03/2008 Osteoarthritis of foot joint 05/21/2004 08/20/2014 Asthma, mild persistent 05/21/200402/28 Other congenital anomaly of uterus 09/10/2003 12/03/2008 Osteoarthritis of foot joint 04/23/2009 Herpes simplex type 2 infection 08/20/2014 Type 2 diabetes mellitus wit h hemoglobin A1c goal of less than 7.0% 12/11/2013 Overview: ICD-10 update of inactive term Dyslipidemia, goal LDL below 100 07/01/2010 Dyslipidemia, goal LDL below 70 01/01/2014 Asthma, mild persistent 12/30 documented as of this encounter (statuses as of 04/05/2024) Immunizations Name Administration Dates Next Due Covid-19 Ad26, Single Dose (Lila/J&J) 04/03/2021 Hepatitis B, 20+ yrs 03/27/1998,03/29/1997,09/20 Pneumococcal Conjugate Vacci ne, 20-valent ([id number]) 05/17/2022 Pneumococcal Conjugate Vacci ne, 7 Valent 08/07/2013 Pneumococcal Polysaccharide PPV23 (Pneumovax) 03/03/2009 Seasonal Influenza, PF, 6 M & above, IM , (FluLaval or Fluzone) 07/21/2022,09/10/2021,08/06/2020,07/31,08/03/2018,08/04/2017 Seasonal Influenza, Quadriva lent Hd (Fluzone Hd) 07/21/2023 Seasonal Influenza, Quadriva lent, No Preserve, IM 07/21/2016 Seasonal Influenza, Split, I IV3, With Preserve, Inj 07/21/2015,08/20/2014,07/16/2013,10/2011,07/03/2011,08/03/2010,08/26/20 09 08/20/2015 TDAP (age 10 and older)(Boostrix) 01/30/2014 TDAP, Age 7 and older, IM (Adacel) 02/14/2007 Zoster Vaccine Recombinant (Shingrix) 02/14/2019 ,08/15/2018 documented as of this encounter Social History Tobacco Use Types Packs/Day Years Used Date Smoking Tobacco: Former Cigarettes 1 12/01/1964 - 09/30/1990 Passive Smoke Exposure: Past Smokeless Tobacco: Never Alcohol Use Standard Drinks/Week Comments Yes 0 (1 standard drink = 0.6 oz pur e alcohol) maybe 2 drinks per year PHQ-2 Answer Date Recorded PHQ Adult Total Score 0 02/24/2022 Hunger Vital Sign Answer Date Recorded Worried About Running Out of Food in the Last Ye ar Never true 08/10/2019 Ran Out of Food in the Last Year Never true 08/10/2019 Sex and Gender Information Value Date Recorded Sex Assigned at Female 03/28/2019 5:34 PM EDT Gender Identity Female 03/28/2019 5:34 PM EDT Sexual Orientation Straight 03/28/2019 5: 34 PM EDT Job Start Date Occupation Industry Not on file Not on file Not on file documented as of this encounter Miscellaneous Notes * Telephone Encounter - Noble Diaz RPh - 04/05/2024 8:42 PM EDT Signed Prescriptions: Disp Refills Famotidine 40 MG Oral Tablet (Pepcid) 90 Tab*3 Sig: TAKE 1 TABLET IN THE MORNINGAuthorizing Provider: ORA GUZMAN User: NOBLE DIAZ------- documented in this encounter Plan of Treatment Upcoming Encounters Date Type Department Care Team (Late st Contact Info) Description 04/16/2024 7:30 AM EDT Office Visit Non [facility], Operating Room, [place] [address] [facility] [place] [address] Peng Powell MD [address] [address] 05/01/2024 2:55 PM EDT Office Visit Urogynecology [facility] [address] [place] [address] Vincent Segovia MD [address] [place] [address] BondsNurse Marci adamson [facility] [address] [place] [address] 05/02/2024 11:30 AM EDT Office Visit [facility] [address] [place] [address] Lima Riggins, [address] [place] [address] 05/02/2024 2:00 PM EDT Office Visit General Surgery, [facility] [address] [address] Peng Powell MD [address] [place] [address] 05/17/2024 3:00 PM EDT Office Visit Orthopaedics [facility] [address] [address] Arben Soriano, DO [address] [place] [address] 08/06/2024 11:30 AM EDT Imaging [facility] [address] [place] [address] 08/08/2024 3:40 PM EDT Office Visit Otolaryngology [facility] [address] [address] Marie Flower PA-C [address] [place] [address] 09/20/2024 3:00 PM EST Office Visit Hematology/Oncology [facility] [place] [address] [facility] [place] [address] Inez Carter CRNP [address] [place] [address] Scheduled Procedures Name Priority Associated Diagnoses Date/Ti me LAPAROSCOPIC CHOLECYSTECTOMY Symptomatic cholelithiasis COLONOSCOPY FLEXIBLE PROXIMA L DIAGNOSTIC Recall Special screening for malignant neoplasms, colon Health Maintenance Due Date Last Done Comments Cologuard 2003 Fecal Occult Blood Test 2003 Sigmoidoscopy 2003 COVID-19 Vaccine ( - season) 2023 04/03/2021 DTaP,Tdap,and Td Vaccines (3 - Td or Tdap) 01/31/2024 01/30/2014, 02/14/2007 B-12 04/04/2024 04/04/2023, 12/2021, 03/10/2021, Additional history exists HbA1c 05/02/2024 11/02/2023, 07/02, 02/09/2023, Additional history exists Diabetic Eye Exam 05/16/2024 05/16/2023, , 05/26/2021, Additional history exists Diabetic Foot Exam 05/27/2024 05/27/2023, 0 02/24/2022, 02/20/2021, Additional history exists Mammogram 08/04/2024 08/04/2023, 01/2022, 07/22/2021, Additional history exists Albumin/Creatinine Ratio 11/02/2024 024, 09/20/2022, 08/09/2017, Additional history exists Colonoscopy 02/17/2025 02/17/2015, 05/31, 06/22/2004, Additional history exists Colorectal Cancer Screening 02/17/2025 GFR 03/30/2025 03/30/2024, 02/28, 02/27/2024, Additional history exists Lipid Panel 04/04/2028 04/04/2023, 09/30, 08/06/2020, Additional history exists DXA Scan 12/08/2032 12/08/2022 Hepatitis B Completed 03/27/1998, 03/02, 09/20/1996 Zoster Vaccines Completed 02/14/2019, 08/15/2018 Pneumococcal Vaccine: 65+ Years Completed 05/17/2022, 03/03/2009 Influenza Vaccine (FLU shot) Completed , 07/21/2022, 09/10/2021, Additional history exists GARDASIL-HPV IMMUNIZATION SERIES Aged Out No longer eligible based on patient's age to complete this topic MENINGOCOCCAL (MENACTRA/MENVEO) Aged Out No longer eligible based on patient's age to complete this topic documented as of this encounter Medical Devices Not on filedocumented as of this encounter Care Teams Director Sales Relationship Specialty Start Date End Date Lima Riggins DO [address] [place] [address] PCP - General Family Medicine 12/21/18 documented as of this encounter
--- OUTSIDE RECORDS SUMMARY | 2024-04-08 15:14 | External Medical Summary | Summary of Care ---
Author Name Unknown Organization [facility] Address [address] [address] Phone [phone] Care Team Providers Care Medical Corps Officer Name Role Phone Lima Riggins Primary Care Provider + [phone] Reason for Visit * Reason Comments EKG Pre op Encounter Details Date Type Department Care Team ([facility] st Contact Info) Description 04/03/2024 3:20 PM EDT Nurse Only Ancillary [address] [phone] [place], Nurse Gmg [address] [address] EKG (Pre op) Allergies Active Allergy Reactions Criticality Noted Date [...] as of this encounter (statuses as of 04/03/2024) Medications Medication Sig Dispensed Refills Start Date End Date Status POTASSIUM GLUCONATE 595 MG PO CAPS Take by mouth. Pt taking 99 mg twice daily 12/18/2012 Active NEBULIZER COMPRESSOR MISCIndications:Mod erate persistent asthma,Asthma flare Use as directed 1 Each 1 06/21/2013 Active NEBULIZER/TUBING/MO UTHPIECE KITIndications:Mode rate persistent asthma,Asthma flare use with nebulizer 1 Kit 1 06/21/2013 Active Multiple Vitamins-Minerals (DAILY MULTIVITAMIN) CAPS Take by mouth. Ac tive Vitamin D 125 MCG (5000 UT) Oral Capsule Take by mouth. Active Benefiber Oral Powder Take 4 g by mouth daily. 730 g 12 01/07/2021 Active Vitamin B12 1000 MCG Oral Tablet Extended Release Take by mouth. Acti ve Accu-Chek Guide w/Device Kit Use to test blood glucose twice daily; E11.9 1 Kit 09/01/2021 Active Cinnamon Plus Chromium 200-1000 MCG-MG Oral Capsule (Chromium-Cinnamon) Take by mouth . Active Calcium 500-125 MG-UNIT Oral Tablet Take by mouth 1 Tablet in the morning. At noon . Active Iron 325 (65 Fe) MG Oral Tablet Take by mouth daily . At noon Active Albuterol Sulfate HFA 108 (90 Base) MCG/ACT Inhalation Aerosol Solution Inhale 2 Puffs by mouth every 4 hours as needed for Wheezing. 8 g 5 05/02/2023 Active Dicyclomine HCl 10 MG Oral Capsule (Bentyl) TAKE 1 CAPSULE IN MORNING, AT NOON, IN THE EVENING, AND AT BEDTIME NEEDED FOR CRAMPING 90 Capsule 3 05/02/2023 Active Cetirizine HCl 10 MG Oral Tablet (ZyrTEC) Take 1 Tablet by mouth in the morning. 90 Tablet 3 05/02/2023 Active valACYclovir HCl 500 MG Oral Tablet (Valtrex)Indication s:Herpes simplex infection of genitourinary system Take 1 Tablet by mouth in the morning and 1 Tablet at noon and 1 Tablet before bedtime. For recurrent episode. 18 Tablet 11 05/05/2023 Active metFORMIN HCl ER 500 MG Oral Tablet Extended Release 24 Hour (Glucophage XR) TAKE 2 TABLETS (1,000 MG) IN THE MORNING 180 Tablet 2 07/08/2023 Active Famotidine 40 MG Oral Tablet (Pepcid) Take 1 Tablet by mouth at bedtime. 90 Tablet 3 07/07/2023 Active Ketoconazole 2 % External Shampoo (Nizoral) Apply ketoconazole shampoo 3 days in a row, leaving on for 5 min before rinsing. Then repeat 1-2 times weekly as needed 120 mL 4 07/13/2023 Active Additional Information Patient not taking.Reported on 02/27/2024 Accu-Chek Softclix Lancets TEST BLOOD SUGAR TWICE DAILY 200 Each 3 07/25/2023 Active Accu-Chek Guide In Vitro Strip (Glucose Blood) TEST BLOOD SUGAR TWICE DAILY 200 Strip 3 07/25/2023 Active Atorvastatin Calcium 80 MG Oral Tablet (Lipitor) TAKE 1 TABLET AT BEDTIME 90 Tablet 2 08/17/2023 Active Esomeprazole Magnesium 40 MG Oral Capsule Delayed Release TAKE 1 CAPSULE EVERY DAY BEFORE BREAKFAST 90 Capsule 10 09/07/2023 Active traZODone HCl 100 MG Oral Tablet (Desyrel)Indication s:Primary insomnia TAKE 1 TABLET AT BEDTIME 90 Tablet 3 10/03/2023 Active Doxycycline Hyclate 100 MG Oral CapsuleIndications: Acute maxillary sinusitis, recurrence not specified TAKE 1 CAPSULE IN THE MORNING AND 1 CAPSULE BEFORE BEDTIME UNTIL GONE 20 Capsule 3 10/17/2023 Active Additional Information Patient not taking.Reported on 03/30/2024 busPIRone HCl 10 MG Oral Tablet (Buspar)Indications :Depression with anxiety Take 1 Tablet by mouth in the morning and 1 Tablet before bedtime. 180 Tablet 5 11/02/2023 Active hydrOXYzine HCl 25 MG Oral TabletIndications:N eurodermatitis Take 1 Tablet by mouth every 6 hours as needed for Anxiety or Itching. 40 Tablet 2 11/02/2023 Active Additional Information Patient not taking.Reported on 02/03/2024 Montelukast Sodium 10 MG Oral Tablet (Singulair)Indicati ons:Moderate persistent asthma without complication Take 1 Tablet by mouth daily. 90 Tablet 3 11/10/2023 Active Colestipol HCl 1 GM Oral Tablet (Colestid)Indicatio ns:Chronic diarrhea Take 1 Tablet by mouth in the morning. 90 Tablet 3 11/10/2023 Active Ipratropium-Albuter ol 0.5-2.5 (3) MG/3ML Inhalation Solution (Duoneb) Inhale 3 mL via nebulizer in the morning and 3 mL at noon and 3 mL in the evening and 3 mL before bedtime. 100 mL 11/24/2023 Active Ipratropium-Albuter ol 0.5-2.5 (3) MG/3ML Inhalation Solution (Duoneb) Inhale 3 mL via nebulizer in the morning and 3 mL at noon and 3 mL in the evening and 3 mL before bedtime. 100 mL 3 11/24/2023 Active Diclofenac Sodium 75 MG Oral Tablet Delayed Release (Voltaren) Take 1 Tablet by mouth 2 times a day as needed. 10/01/2023 Active Oxymetazoline HCl 0.05 % Nasal Solution Administer 2 Sprays into each nostril 2 times a day as needed for Congestion (for congestion). Do not use for more than three days. 20 mL 12/09/2023 Active Additional Information Patient not taking.Reported on 02/27/2024 DULoxetine HCl 60 MG Oral Capsule Delayed Release Particles (Cymbalta)Indicatio ns:Depression, major, recurrent, in remission (HCC),Depression with anxiety TAKE 1 CAPSULE EVERY DAY 90 Capsule 3 01/23/2024 Active Lisinopril 5 MG Oral Tablet (Prinivil) TAKE 1 TABLET EVERY MORNING 90 Tablet 3 02/28/2024 Active Metoclopramide HCl 5 MG Oral Tablet (Reglan) TAKE 1 TABLET IN THE MORNING AND TAKE 1 TABLET IN THE EVENING 180 Tablet 3 02/27/2024 Active Spiriva Respimat 2.5 MCG/ACT Inhalation Aerosol Solution (Tiotropium [place] Monohydrate) INHALE 2 PUFFS EVERY MORNING 12 g 3 03/14/2024 Active oxyBUTYnin Chloride ER 10 MG Oral Tablet Extended Release 24 Hour (Ditropan XL) Take 1 Tablet by mouth in the morning. 90 Tablet 3 03/21/2024 Active Mirabegron ER 50 MG Oral Tablet Extended Release 24 Hour (Myrbetriq) Take 1 Tablet by mouth in the morning. 90 Tablet 3 03/29/2024 Active documented as of this encounter (statuses as of 04/03/2024) Active Problems Problem Noted Date Diagnosed Date [...] as of this encounter (statuses as of 04/03/2024) Resolved Problems Problem Noted Date Diagnosed Date [...] min 03/02/2017 08/04/2017 Closed head injury 02/22/2017 7 Adult BMI 40.0-44.9 kg/sq m 01/10/2017 [...] as of this encounter (statuses as of 04/03/2024) Immunizations Name Administration Dates Next Due Covid-19 Ad26, Single Dose (Lila/J&J) 04/03/2021 Hepatitis B, 20+ yrs 03/27/1998,03/29/1997,09/20 Pneumococcal Conjugate Vacci ne, 20-valent ([id number]) 05/17/2022 Pneumococcal Conjugate Vacci ne, 7 Valent 08/07/2013 Pneumococcal Polysaccharide PPV23 (Pneumovax) 03/03/2009 Seasonal Influenza, PF, 6 M & above, IM , (FluLaval or Fluzone) 07/21/2022,09/10/2021,08/06/2020,07/31,08/03/2018,08/04/2017 Seasonal Influenza, Quadriva lent Hd (Fluzone Hd) 07/21/2023 Seasonal Influenza, Quadriva lent, No Preserve, IM 07/21/2016 Seasonal Influenza, Split, I IV3, With Preserve, Inj 07/21/2015,08/20/2014,07/16/2013,09/0 10/2011,07/03/2011,08/03/2010,08/26/20 09 08/20/2015 TDAP (age 10 and older)(Boostrix) [...] on file documented as of this encounter Nursing Notes * Clarita Peralta LPN - 04/03/2024 3:18 PM EDT The patient has been properly identified by confirmation of name and date of . Chief Complaint Patient presents with EKG Pre op Pt here for pre op EKG. ekg done as per dr's order documented in this encounter Plan of Treatment Upcoming Encounters Date Type Department Care Team (Late st Contact Info) Description 04/16/2024 7:30 AM EDT Office Visit [facility], Operating Room, [facility] [address] [place] [facility] [place] [address] Peng Powell MD [address] [place] [address] 05/01/2024 2:55 PM EDT Office Visit Urogynecology Chet Bonds [address] [place] [address] Vincent Segovia MD [address] [place] [address] Nurse Marci Bonds [address] [place] [address] 05/02/2024 11:30 AM EDT Office Visit [facility] [address] [place] [facility] [phone] Lima Riggins, DO [address] [place] [facility] [place] [address] 05/02/2024 2:00 PM EDT Office Visit General Surgery, [facility] [address] [place] [address] Peng Powell MD [address] [place] [address] 05/17/2024 3:00 PM EDT Office Visit Orthopaedics [facility] [address] [place] [address] Arben Soriano, [address] [place] [address] 08/06/2024 11:30 AM EDT Imaging Radiology [facility] 1st [facility] [address] [facility] [place] [address] 08/08/2024 3:40 PM EDT Office Visit Otolaryngology [facility] [address] [facility] [place] [address] Marie Flower PA-C [address] [place] [address] 09/20/2024 3:00 PM EST Office Visit Hematology/Oncology [facility] [address] [facility] [place] [phone] Inez Carter CRNP [address] [place] [address] [place] [address] Scheduled Procedures Name Priority Associated Diagnoses Date/Ti me LAPAROSCOPIC CHOLECYSTECTOMY Symptomatic cholelithiasis COLONOSCOPY FLEXIBLE PROXIMA L DIAGNOSTIC Recall Special screening for malignant neoplasms, colon Health Maintenance Due Date Last Done Comments Cologuard 2003 Fecal Occult Blood Test 2003 Sigmoidoscopy 2003 COVID-19 Vaccine (2 - season) 2023 04/03/2021 DTaP,Tdap,and Td Vaccines [...] Not on filedocumented as of this encounter Visit Diagnoses Diagnosis Pre-op examination- Primary Preoperative examination, unspecified documented in this encounter Care Teams Medical Corps Officer Relationship Specialty Start Date End Date Lima Riggins DO [address] [place] [address] PCP - General Family Medicine 12/21/18 documented as of this encounter
--- OUTSIDE RECORDS SUMMARY | 2024-04-08 15:14 | External Medical Summary | Summary of Care ---
Author Name Unknown Organization [facility] Address [address] [address] Phone [phone] Care Team Providers Care Field Return Repairer Name Role Phone Lima Riggins Primary Care Provider + [phone] Reason for Visit * Reason Comments EKG Pre op Encounter Details Date Type Department Care Team ([facility] st Contact Info) Description 04/03/2024 3:20 PM EDT Nurse Only Ancillary [address] [phone] [place], Nurse Gmg [address] [address] EKG (Pre op) Allergies Active [...] Respimat 2.5 MCG/ACT Inhalation Aerosol Solution (Tiotropium [place] Monohydrate) INHALE 2 PUFFS EVERY MORNING 12 [...] yrs 03/27/1998,03/29/1997,09/20 Pneumococcal Conjugate Vacci ne, 20-valent ([id number]) 05/17/2022 Pneumococcal Conjugate Vacci ne, 7 Valent [...] Office Visit [facility], Operating Room, [facility] [address] [place] [facility] [place] [address] Peng Powell MD [address] [place] [address] 05/01/2024 2:55 PM EDT Office Visit Urogynecology Chet Bonds [address] [place] [address] Vincent Segovia MD [address] [place] [address] Nurse Marci Bonds [address] [place] [address] 05/02/2024 11:30 AM EDT Office Visit [facility] [address] [place] [facility] [phone] Lima Riggins, DO [address] [facility] [place] [address] 05/02/2024 2:00 PM EDT Office Visit General Surgery, [facility] [address] [place] [address] Peng Powell MD [address] [place] [address] 05/17/2024 3:00 PM EDT Office Visit Orthopaedics [facility] [address] [place] [address] Arben Soriano, [address] [place] [address] 08/06/2024 11:30 AM EDT Imaging Radiology [facility] 1st [facility] [address] [facility] [place] [address] 08/08/2024 3:40 PM EDT Office Visit Otolaryngology [facility] [address] [facility] [place] [address] Marie Flower PA-C [address] [place] [address] 09/20/2024 3:00 PM EST Office Visit Hematology/Oncology [facility] [address] [facility] [place] [phone] Inez Carter CRNP [address] [place] [address] [place] [address] Scheduled Procedures Name Priority Associated Diagnoses Date/Ti [...] unspecified documented in this encounter Care Teams Field Return Repairer Relationship Specialty Start Date End Date Lima Riggins DO [address] [place] [address] PCP - General Family Medicine 12/21/18 documented as of this encounter
--- OUTSIDE RECORDS SUMMARY | 2024-04-08 15:14 | External Medical Summary | Summary of Care ---
Author Name Unknown Organization [facility] Address [address] [address] Phone [phone] Care Team Providers Care Rabbler Name Role Phone Lima Riggins Primary Care Provider [phone] Reason for Visit * Reason Onset Date Comments Medication Refill 03/21/2024 Encounter Details Date Type Department Care Team (Late st Contact Info) Description 03/21/2024 Refill Urogynecology [facility] [address] [place] [address] Maryana Lamas PA-C [address] [place] [address] Allergies Active Allergy Reactions Criticality Noted Date [...] as of this encounter (statuses as of 04/04/2024) Medications Medication Sig Dispensed Refills Start Date End Date Status POTASSIUM GLUCONATE 595 MG PO CAPS Take by mouth. Pt taking 99 mg twice daily 12/18/2012 Active NEBULIZER COMPRESSOR MISCIndications:Mo derate persistent asthma,Asthma flare Use as directed 1 Each 1 06/21/2013 Active NEBULIZER/TUBING/M OUTHPIECE KITIndications:Mod erate persistent asthma,Asthma [...] 10/03/2023 Active Doxycycline Hyclate 100 MG Oral CapsuleIndications [...] 11/02/2023 Active hydrOXYzine HCl 25 MG Oral TabletIndications: [...] the morning. 90 Tablet 3 11/10/2023 Active Ipratropium-Albute rol 0.5-2.5 (3) MG/3ML Inhalation Solution (Duoneb) Inhale 3 mL via nebulizer in the morning and 3 mL at noon and 3 mL in the evening and 3 mL before bedtime. 100 mL 11/24/2023 Active Ipratropium-Albute rol 0.5-2.5 (3) MG/3ML Inhalation [...] Respimat 2.5 MCG/ACT Inhalation Aerosol Solution (Tiotropium [place] Monohydrate) INHALE 2 PUFFS EVERY MORNING 12 g 3 03/14/2024 Active oxyBUTYnin Chloride ER 10 MG Oral Tablet Extended Release 24 Hour (Ditropan XL) Take 1 Tablet by mouth in the morning. 90 Tablet 3 03/21/2024 Active Myrbetriq 50 MG Oral Tablet Extended Release 24 Hour (Mirabegron ER) Take 1 Tablet by mouth in the morning. 90 Tablet 3 06/07/2023 4 Discontinu ed(Refill) Oxybutynin Chloride ER 10 MG Oral Tablet Extended Release 24 Hour (Ditropan XL) Take 1 Tablet by mouth in the morning. 90 Tablet 3 06/07/2023 4 Discontinu ed(Refill) documented as of this encounter (statuses as of 04/04/2024) Active Problems Problem Noted Date Diagnosed Date [...] as of this encounter (statuses as of 04/04/2024) Resolved Problems Problem Noted Date Diagnosed Date [...] as of this encounter (statuses as of 04/04/2024) Immunizations Name Administration Dates Next Due Covid-19 Ad26, Single Dose (Lila/J&J) 04/03/2021 Hepatitis B, 20+ yrs 03/27/1998,03/29/1997,09/20 Pneumococcal Conjugate Vacci ne, 20-valent ([id number]) 05/17/2022 Pneumococcal Conjugate Vacci ne, 7 Valent 08/07/2013 Pneumococcal Polysaccharide PPV23 (Pneumovax) 03/03/2009 Seasonal Influenza, PF, 6 M & above, IM , (FluLaval or Fluzone) 07/21/2022,09/10/2021,08/06/2020,07/31,08/03/2018,08/04/2017 Seasonal Influenza, Quadriva lent Hd (Fluzone Hd) 07/21/2023 Seasonal Influenza, Quadriva lent, No Preserve, IM 07/21/2016 Seasonal Influenza, Split, I IV3, With Preserve, Inj 07/21/2015,08/20/2014,07/16/2013,0910/2011,07/03/2011,08/03/2010,08/26/20 09 08/20/2015 TDAP (age 10 and older)(Boostrix) [...] encounter Miscellaneous Notes * Telephone Encounter - Maryana Lamas PA-C - 03/21/2024 12:43 PM EDT * Telephone Encounter - Maryana Lamas PA-C - 03/21/2024 12:43 PM EDTSigned Prescriptions: Disp Refills oxyBUTYnin Chloride ER 10 MG Oral Tablet E*90 Tab*3 Sig: Take 1 Tablet by mouth in the morning. Authorizing Provider: MARYANA LAMAS * Telephone Encounter - Rosa Faulkner OSA - 03/21/2024 11:20 AM EDT Received automatic refill request/90 day supply via fax from [facility] pharmacy for medication Oxybutynin ER 10 mg Patient last seen 02/03/2024 (in office), Visit date not found (telemedicine) Future appt 05/01/2024 documented in this encounter Plan of Treatment Upcoming Encounters Date Type Department Care Team (Late st Contact Info) Description 04/16/2024 7:30 AM EDT Office Visit [facility], Operating Room, [facility] [address] [place] [facility] [place] [address] Peng Powell MD [address] [place] [address] 05/01/2024 2:55 PM EDT Office Visit Urogynecology [facility] [address] [place] [address] Vincent Segovia MD [address] [place] [address] Nurse Marci Bonds [address] [place] [address] 05/02/2024 11:30 AM EDT Office Visit [address] [phone] Lima Riggins DO [address] [place] [address] 05/02/2024 2:00 PM EDT Office Visit General Surgery, [facility] [address] [place] [address] Peng Powell MD [address] [place] [address] 05/17/2024 3:00 PM EDT Office Visit Orthopaedics [facility] [address] [place] [address] Arben Soriano, [address] [place] [address] 08/06/2024 11:30 AM EDT Imaging Radiology [facility] [address] [place] [address] 08/08/2024 3:40 PM EDT Office Visit Otolaryngology [facility] [address] [place] [address] Marie Flower PA-C [address] [place] [address] 09/20/2024 3:00 PM EST Office Visit Hematology/Oncology [facility] [address] [facility] [address] Inez Carter CRNP [address] [facility] [place] [address] Scheduled Procedures Name Priority Associated Diagnoses Date/Ti me LAPAROSCOPIC CHOLECYSTECTOMY Symptomatic cholelithiasis COLONOSCOPY FLEXIBLE PROXIMA L DIAGNOSTIC Recall Special screening for malignant neoplasms, colon Health Maintenance Due Date Last Done Comments Cologuard 2003 Fecal Occult Blood Test 2003 Sigmoidoscopy 2003 COVID-19 Vaccine ( - season) 2023 04/03/2021 DTaP,Tdap,and Td Vaccines (3 - Td or Tdap) 01/31/2024 01/30/2014, 02/14/2007 B-12 04/04/2024 04/04/2023, 0512/2021, 03/10/2021, Additional history exists HbA1c 05/02/2024 11/02/2023, 07/02, 02/09/2023, Additional history exists Diabetic Eye Exam 05/16/2024 05/16/2023, , 05/26/2021, Additional history exists Diabetic Foot Exam 05/27/2024 05/27/2023, 0 02/24/2022, 02/20/2021, Additional history exists Mammogram 08/04/2024 08/04/2023, 1001/2022, 07/22/2021, Additional history exists Albumin/Creatinine Ratio 11/02/2024 [...] filedocumented as of this encounter Care Teams Rabbler Relationship Specialty Start Date End Date Lima Riggins DO [address] [place] [facility] [place] [address] PCP - General Family Medicine 12/21/18 documented as of this encounter
--- OUTSIDE RECORDS SUMMARY | 2024-04-08 15:14 | External Medical Summary | Summary of Care ---
Author Name Unknown Organization [facility] Address [address] [facility] [place] [address] Phone [phone] Care Team Providers Care Casing Inspector Name Role Phone MitulLima connolly Joe MINER Primary Care Provider [phone] Reason for Visit * Reason Onset Date Comments Appointment Canceled 03/30/2024 Reschedule Encounter Details Date Type Department Care Team (Late st Contact Info) Description 03/30/2024 Telephone Gastroenterology, [facility] [address] [place] [address] Salomón Carter CRNP [address] [place] [address] Appointment Canceled (Reschedule) Allergies Active Allergy Reactions Criticality Noted Date [...] as of this encounter (statuses as of 03/30/2024) Medications Medication Sig Dispensed Refills Start Date [...] Respimat 2.5 MCG/ACT Inhalation Aerosol Solution (Tiotropium [place] Monohydrate) INHALE 2 PUFFS EVERY MORNING 12 [...] as of this encounter (statuses as of 03/30/2024) Active Problems Problem Noted Date Diagnosed Date [...] as of this encounter (statuses as of 03/30/2024) Resolved Problems Problem Noted Date Diagnosed Date [...] as of this encounter (statuses as of 03/30/2024) Immunizations Name Administration Dates Next Due Covid-19 Ad26, Single Dose (Lila/J&J) 04/03/2021 Hepatitis B, 20+ yrs 03/27/1998,03/29/1997,09/20 Pneumococcal Conjugate Vacci ne, 20-valent ([id number]) 05/17/2022 Pneumococcal Conjugate Vacci ne, 7 Valent [...] encounter Miscellaneous Notes * Telephone Encounter - Marie Anderson OSA - 03/30/2024 2:25 PM EDT New Patient Gastro appointment cancelled with Salomón Carter on 04/23/24. Left message for patient to return call to reschedule. Can be scheduled with Salomón or Roxie. Schedule may be full, we are waiting on template to open. 03/30/2024 2:26 PM documented in this encounter Plan of Treatment Upcoming Encounters Date Type Department Care Team ([facility] Contact Info) Description 04/03/2024 3:20 PM EDT Nurse Only Ancillary [address] [address] Nurse Yoselin [address] [address] 05/01/2024 2:55 PM EDT Office Visit Urogynecology Chet Bonds [address] [place] [address] Vincent Segovia MD [address] [place] [address] Nurse Marci Bonds [address] [place] [address] 05/02/2024 10:45 AM EDT Office Visit General Surgery, [facility] [address] [place] [address] Peng Powell MD [address] [place] [address] 05/02/2024 11:30 AM EDT [facility] [address] [place] [address] Lima Riggins [address] [place] [address] 05/17/2024 3:00 PM EDT Office Visit Orthopaedics [facility] [address] [facility] [place] [address] Arben Soriano DO [address] [facility] [place] [address] 08/06/2024 11:30 AM EDT Imaging Radiology [facility]st [facility] [address] [place] [address] 08/08/2024 3:40 PM EDT Office Visit Otolaryngology [facility] [address] [place] [address] Marie Flower PA-C [address] [place] [address] 09/20/2024 3:00 PM EST Office Visit [facility]ology/[facility] [address] [facility] [phone] Inez Carter CRNP [address] [place] [address] [place] [address] Scheduled Procedures Name Priority Associated Diagnoses Date/Ti [...] history exists Colorectal Cancer Screening 02/17/2025 GFR 03/12/2025 03/12/2024, 01/30, 11/02/2023, Additional history exists Lipid Panel 04/04/2028 04/04/2023, [...] filedocumented as of this encounter Care Teams Casing Inspector Relationship Specialty Start Date End Date Lima Riggins DO [address] [facility] [place] [address] PCP - General Family Medicine 12/21/18 documented as of this encounter
--- OUTSIDE RECORDS SUMMARY | 2024-04-08 15:15 | External Medical Summary ---
Author Name Unknown Address Unknown Organization K01:LABORATORY [facility] - [address] [place] [address] Laboratory Report Ordering Provider Test Date Status KING PRATHER 03/30/2024 11:24:24 Final Observation Date Value Abnormality Reference (Units ) Status Albumin 03/30/2024 11:24:24 4.3 3.8-5.0 (g/dL) Final AST (Aspartate aminotransferase) 03/30/2024 11:24:24 24 10-35 (U/L) Final Alk Phos 03/30/2024 11:24:24 118 35-130 (U/L) Final ALT (Alanine aminotransferase) 03/30/2024 11:24:24 36 Above high normal 10-35 (U/L) Final Bilirubin, Total 03/30/2024 11:24:24 0.4 <=1.2 (mg/dL) Final Bilirubin, Direct 03/30/2024 11:24:24 <0.2 0.0-0.3 (mg/dL) Final Protein 03/30/2024 11:24:24 6.4 6.0-8.3 (g/dL) Final Performing Location LABORATORY [facility] - [address] [place] [address]
--- OUTSIDE RECORDS SUMMARY | 2024-04-08 15:15 | External Medical Summary | Summary of Care ---
Author Name Unknown Organization [facility] Address [address] [facility] [place] [address] Phone [phone] Care Team Providers Care Air Dispatcher Name Role Phone Lima Riggins Primary Care Provider + [phone] Reason for Visit * Reason Comments Outpatient Testing Encounter Details Date Type Department Care Team (Late st Contact Info) Description 03/30/2024 11:50 AM EDT Laboratory Laboratory, [place] [address] [place] [address] [place], Laboratory [address] [place] [address] Gallstones; RUQ pain Allergies Active Allergy Reactions Criticality Noted Date [...] Respimat 2.5 MCG/ACT Inhalation Aerosol Solution (Tiotropium [place] Monohydrate) INHALE 2 PUFFS EVERY MORNING 12 [...] yrs 03/27/1998,03/29/1997,09/20 Pneumococcal Conjugate Vacci ne, 20-valent ([id number]) 05/17/2022 Pneumococcal Conjugate Vacci ne, 7 Valent [...] on file documented as of this encounter Plan of Treatment Upcoming Encounters Date Type Department Care Team (Late st Contact Info) Description 03/30/2024 2:00 PM EDT Office Visit General Surgery, [facility] [address] [place] [address] Peng Powell MD [address] [place] [address] 04/23/2024 2:30 PM EDT Office Visit Gastroenterology, [facility] [address] [place] [address] Salomón Carter CRNP [address] [place] [address] 05/01/2024 2:55 PM EDT Office Visit Urogynecology [facility] [address] [place] [address] Vincent Segovia MD [address] [place] [address] Nurse Marci Bonds [address] [place] [address] 05/02/2024 11:30 AM EDT Office Visit [address] [place] [address] Lima Riggins, DO [address] [place] [address] 05/17/2024 3:00 PM EDT Office Visit Orthopaedics [facility] [address] [facility] [place] [address] Arben Soriano, DO [address] [facility] [place] [address] 08/06/2024 11:30 AM EDT Imaging Radiology [facility] 1st Floor, [place] [address] [facility] [place] [address] 08/08/2024 3:40 PM EDT Office Visit Otolaryngology [facility] [address] [facility] [place] [address] Marie Flower PA-C [address] [facility] [place] [address] 09/20/2024 3:00 PM EST Office Visit Hematology/Oncology [facility] [address] [facility] [place] [phone] Inez Carter CR[facility] [address] [facility] [address] Pending Results Name Type Priority Associated Diagnoses Date /Time HEPATIC FUNCTION PANEL Lab Routine Gallstones RUQ pain 03/30/2024 11:24 AM EDT BASIC METABOLIC PANEL Lab Routine Gallstones RUQ pain 03/30/2024 11:24 AM EDT Scheduled Procedures Name Priority Associated Diagnoses Date/Ti me COLONOSCOPY FLEXIBLE PROXIMA L DIAGNOSTIC Recall Special screening for malignant neoplasms, colon Health Maintenance Due Date Last Done Comments Cologuard 2003 Fecal Occult Blood Test 2003 Sigmoidoscopy 2003 COVID-19 Vaccine ( season) 2023 04/03/2021 DTaP,Tdap,and Td Vaccines (3 [...] as of this encounter Visit Diagnoses Diagnosis Gallstones Calculus of gallbladder without mention of cholecystitis or obstruction RUQ pain Abdominal pain, right upper quadrant documented in this encounter Care Teams Air Dispatcher Relationship Specialty Start Date End Date Lima Riggins DO [address] [place] [facility] [place] [address] PCP - General Family Medicine 12/21/18 documented as of this encounter
--- OUTSIDE RECORDS SUMMARY | 2024-04-08 15:15 | External Medical Summary | Summary of Care ---
Author Name Unknown Organization [facility] Address [address] [place] [address] Phone [phone] Care Team Providers Care Quality Compliance Coordinator Name Role Phone Lima Riggins DO Primary Care Provider [phone] Reason for Visit * Evaluate & Treat - Unlimited Visits (Within 10 days (routine)) - Pending Review Specialty Diagnoses / Procedures Referred By Juan campblel Referred To Contact General Surgery Diagnoses Gallstones RUQ pain Lima Riggins DO [address] [place] [address] Referral ID Status Reason Start Date Expiration Date Visits Requested Visits Authorized [id number] Pending Review Specialty Services Required 03/30/[phone] Encounter Details Date Type Department Care Team (Latest Contact Info) Description 03/30/2024 2:00 PM EDT Office Visit General Surgery, [facility] [address] [place] [address] Peng Powell MD [address] [place] [address] Pre-op examination*; Symptomatic cholelithiasis Allergies Active Allergy Reactions Criticality Noted Date [...] Respimat 2.5 MCG/ACT Inhalation Aerosol Solution (Tiotropium [place] Monohydrate) INHALE 2 PUFFS EVERY MORNING 12 [...] yrs 03/27/1998,03/29/1997,09/20 Pneumococcal Conjugate Vacci ne, 20-valent ([id number]) 05/17/2022 Pneumococcal Conjugate Vacci ne, 7 Valent [...] on file documented as of this encounter Last Filed Vital Signs Vital Sign Reading Time Taken Comments Blood Pressure 147/76 03/30/2024 1:49 PM EDT Pulse 80 03/30/2024 1:49 PM EDT Temperature 35.8 C (96.5 F) 03/30/2024 1:49 PM ED T Respiratory Rate - - Oxygen Saturation - - Inhaled Oxygen Concentration - - Weight 90.7 kg (200 lb) 03/30/2024 1:49 PM EDT Height - - Body Mass Index 37.79 03/30/2024 10:40 AM EDT documented in this encounter Progress Notes * Peng Powell MD - 03/30/2024 2:21 PM EDT Chief Complaint: No chief complaint on file. History of Present Illness: Christina Monge is a 63 year old female who has been having right upper quadrant pain. Pain has been present for two weeks. The pain does radiate to the patient's back. The patient does not have nausea associated with it. The patient does not have any jaundice associated with it. The pain is not made worse by fatty or fried foods. Past Medical History Past Medical History: Diagnosis Date Allergic rhinitis all year round Asthma, mild persistent Depressive disorder, not elsewhere classified 1978 possible suicide attempt with pills Diverticulosis of colon 06/11/10 DM type 2, goal A1c below 7 DM type 2, goal A1c below 7 Dyslipidemia, goal LDL below 70 12/09 Esophageal reflux Herpes simplex type 2 infection History of Clostridium difficile colitis 07/2016 Migraine Osteoarthritis of foot joint Steatohepatitis, non-alcoholic Past Surgical History Past Surgical History: Procedure Laterality Date COLONOSCOPY 10/31/2003 10 years COLONOSCOPY, DIAGNOSTIC (RECTUM) 06/11/2010 diverticulosis, REPEAT IN 10 YEARS COLONOSCOPY, DIAGNOSTIC (RECTUM) 02/17/2015 hyperplastic polyp, diverticulosis, repeat 10 yrs CYSTOSCOPY 11/06/2013 DILATION AND CURETTAGE (D&C) 10/31/1979 D&C EGD, FLEXIBLE, DIAGNOSTIC 10/31/2003 charlie EGD, FLEXIBLE, DIAGNOSTIC 11/19/2015 normal bx/ESOPHAGOGASTRODUODENOSCOPY (EGD), FLEXIBLE, TRANSORAL, DIAGNOSTIC performed by Cas Watson DO at ENDOSCOPY [facility] EGD, FLEXIBLE, DIAGNOSTIC 06/24/2022 normal bx / [facility] EGD, FLEXIBLE, W/BIOPSY 01/16/2009 normal EGD, W/ENDOSCOPIC US 08/19/2011 benign appearing lymph node, repeat CT Scan in 6 months EGD, W/ENDOSCOPIC US 11/07/2014 mild gastritis, fatty liver/ESOPHAGOGASTRODUODENOSCOPY (EGD), FLEXIBLE, TRANSORAL, ENDOSCOPIC ULTRASOUND performed by Cas Watson DO at ENDOSCOPY [facility] LIGATE/CUT OVIDUCT(S) 10/31/1980 Tubal Ligation NASAL/SINUS ENDOSCOPY, SURGICAL Right 03/03/2022 NASAL SINUS ENDOSCOPY CONTROL NASAL SINUS HEMORRHAGE performed by Nata Villafana MD at OR [facility] RELIEVE PRESSURE ON FOOT/TOE NERVE 10/31/2000 Dr Velasco- left foot REMOVE TONSILS & ADENOIDS, AGE 12+ 10/31/1973 Tonsillectomy/Adenoids,12+ Y/O TOTAL ABD HYSTERECTOMY W/WO REMOVAL OF TUBE(S) 10/31/2007 Dr [facility] w/ Bilateral Salpingo-Oophorectomy UPPER GI ENDOSCOPY 02/01/2014 Medications: Current Outpatient Medications Medication Sig Dispense Refill POTASSIUM GLUCONATE 595 MG PO CAPS Take by mouth. Pt taking 99 mg twice daily NEBULIZER COMPRESSOR MISC Use as directed 1 Each 1 NEBULIZER/TUBING/MOUTHPIECE KIT use with nebulizer 1 Kit 1 Multiple Vitamins-Minerals (DAILY MULTIVITAMIN) CAPS Take by mouth. Vitamin D 125 MCG (5000 UT) Oral Capsule Take by mouth. Benefiber Oral Powder Take 4 g by mouth daily. 730 g 12 Vitamin B12 1000 MCG Oral Tablet Extended Release Take by mouth. Accu-Chek Guide w/Device Kit Use to test blood glucose twice daily; E11.9 1 Kit 0 Cinnamon Plus Chromium 200-1000 MCG-MG Oral Capsule (Chromium-Cinnamon) Take by mouth . Calcium 500-125 MG-UNIT Oral Tablet Take by mouth 1 Tablet in the morning. At noon . Iron 325 (65 Fe) MG Oral Tablet Take by mouth daily . At noon Albuterol Sulfate HFA 108 (90 Base) MCG/ACT Inhalation Aerosol Solution Inhale 2 Puffs by mouth every 4 hours as needed for Wheezing. 8 g 5 Dicyclomine HCl 10 MG Oral Capsule (Bentyl) TAKE 1 CAPSULE IN MORNING, AT NOON, IN THE EVENING, ANDAT BEDTIME NEEDED FOR CRAMPING 90 Capsule 3 Cetirizine HCl 10 MG Oral Tablet (ZyrTEC) Take 1 Tablet by mouth in the morning. 90 Tablet 3 valACYclovir HCl 500 MG Oral Tablet (Valtrex) Take 1 Tablet by mouth in the morning and 1 Tablet atnoon and 1 Tablet before bedtime. For recurrent episode. 18 Tablet 11 metFORMIN HCl ER 500 MG Oral Tablet Extended Release 24 Hour (Glucophage XR) TAKE 2 TABLETS (1,000 MG) IN THE MORNING 180 Tablet 2 Famotidine 40 MG Oral Tablet (Pepcid) Take 1 Tablet by mouth at bedtime. 90 Tablet 3 Ketoconazole 2 % External Shampoo (Nizoral) Apply ketoconazole shampoo 3 days in a row, leaving on for 5 min before rinsing. Then repeat 1-2 times weekly as needed (Patient not taking: Reported on 02/27/2024) 120 mL 4 Accu-Chek Softclix Lancets TEST BLOOD SUGAR TWICE DAILY 200 Each 3 Accu-Chek Guide In Vitro Strip (Glucose Blood) TEST BLOOD SUGAR TWICE DAILY 200 Strip 3 Atorvastatin Calcium 80 MG Oral Tablet (Lipitor) TAKE 1 TABLET AT BEDTIME 90 Tablet 2 Esomeprazole Magnesium 40 MG Oral Capsule Delayed Release TAKE 1 CAPSULE EVERY DAY BEFORE [id number] Capsule 10 traZODone HCl 100 MG Oral Tablet (Desyrel) TAKE 1 TABLET AT BEDTIME 90 Tablet 3 Doxycycline Hyclate 100 MG Oral Capsule TAKE 1 CAPSULE IN THE MORNING AND 1 CAPSULE BEFORE BEDTIME UNTIL GONE (Patient not taking: Reported on 03/30/2024) 20 Capsule 3 busPIRone HCl 10 MG Oral Tablet (Buspar) Take 1 Tablet by mouth in the morning and 1 Tablet before bedtime. 180 Tablet 5 hydrOXYzine HCl 25 MG Oral Tablet Take 1 Tablet by mouth every 6 hours as needed for Anxiety or Itching. (Patient not taking: Reported on 02/03/2024) 40 Tablet 2 Montelukast Sodium 10 MG Oral Tablet (Singulair) Take 1 Tablet by mouth daily. 90 Tablet 3 Colestipol HCl 1 GM Oral Tablet (Colestid) Take 1 Tablet by mouth in the morning. 90 Tablet 3 Ipratropium-Albuterol 0.5-2.5 (3) MG/3ML Inhalation Solution (Duoneb) Inhale 3 mL via nebulizer in the morning and 3 mL at noon and 3 mL in the evening and 3 mL before bedtime. 100 mL 0 Ipratropium-Albuterol 0.5-2.5 (3) MG/3ML Inhalation Solution (Duoneb) Inhale 3 mL via nebulizer in the morning and 3 mL at noon and 3 mL in the evening and 3 mL before bedtime. 100 mL 3 Diclofenac Sodium 75 MG Oral Tablet Delayed Release (Voltaren) Take 1 Tablet by mouth 2 times a dayas needed. (Patient not taking: Reported on 02/03/2024) Oxymetazoline HCl 0.05 % Nasal Solution Administer 2 Sprays into each nostril 2 times a day as needed for Congestion (for congestion). Do not use for more than three days. (Patient not taking: Reported on 02/27/2024) 20 mL 0 DULoxetine HCl 60 MG Oral Capsule Delayed Release Particles (Cymbalta) TAKE 1 CAPSULE EVERY DAY 90 Capsule 3 Lisinopril 5 MG Oral Tablet (Prinivil) TAKE 1 TABLET EVERY MORNING 90 Tablet 3 Metoclopramide HCl 5 MG Oral Tablet (Reglan) TAKE 1 TABLET IN THE MORNING AND TAKE 1 TABLET IN THE EVENING 180 Tablet 3 Spiriva Respimat 2.5 MCG/ACT Inhalation Aerosol Solution (Tiotropium [place] Monohydrate) INHALE 2 PUFFS EVERY MORNING 12 g 3 oxyBUTYnin Chloride ER 10 MG Oral Tablet Extended Release 24 Hour (Ditropan XL) Take 1 Tablet by mouth in the morning. 90 Tablet 3 Mirabegron ER 50 MG Oral Tablet Extended Release 24 Hour (Myrbetriq) Take 1 Tablet by mouth in the morning. 90 Tablet 3 No current facility-administered medications for this visit. Allergies: Allergies as of 03/30/2024 - Reviewed 03/30/2024 Allergen Reaction Noted Clindamycin 08/24/2019 Dilaudid [hydromorphone hcl] Itching 06/29/2011 Gabapentin Itching 12/11/2018 Keflex [cephalexin] 12/05/2015 Latex Rash 09/10/2003 Mupirocin 01/04/2022 Neosporin original [neomycin-bacitracin zn-polymyx] Other (Please comment) 01/16/2009 Rocephin [ceftriaxone] Rash 12/05/2015 Sulfa antibiotics Hives 09/10/2003 Zofran Rash 05/05/2010 Family History Family History Problem Relation Name Age of Onset Hypertension Mother Diabetes Mother Diabetes Sister Cancer Father of cancer Heart Disorder None Mental Disorder None Stroke None Allergies Other grandson; allergic to cats, dogs Heart Disorder Grandfather (Maternal) Breast Cancer Sister Annette 69 Other (pneumonia) Brother at 6 months Suicide attempts Brother in 40s Social History Social History Socioeconomic History Marital status: Spouse name: Not on file Number of children: 3 Years of education: Not on file Highest education level: Not on file Occupational History 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: [employer] Employer: [employer] Tobacco Use Smoking status: Former Current packs/day: 0.00 Types: Cigarettes Start date: 09/30/1965 Quit date: 09/30/1990 Years since quittin.5 Passive exposure: Past Smokeless tobacco: Never Vaping Use Vaping status: Never Used Substance and Sexual Activity Alcohol use: Yes Comment: maybe 2 drinks per year Drug use: No Sexual activity: Yes Partners: Male control/protection: Surgical Comment: hysterectomy Other Topics Concern Service Not Asked Blood Transfusions No Caffeine Concern Yes Comment: 2-3 daily Occupational Exposure Not Asked Hobby Hazards Not Asked Sleep Concern Not Asked Stress Concern Not Asked Weight Concern Not Asked Special Diet Yes Comment: trying to lose weight Back Care Not Asked Exercise No Bike Helmet Not Asked Seat Belt Yes Self-Exams Yes Social History Narrative [employer] [employer] [facility] INFORMATION ENVIRONMENTAL HISTORY: Type of Home: Mobile Home Type of Heating System: Oil and Forced air Air Conditioning: Yes Patient's bedroom and Living room Basement: None Home have cockroaches: No Irritants in the home: Scented Candles and Scented air fresheners Patient's bedroom location: Floor: first Type of weston: Carpeting Beds: Number: 1 Type of beds: Mattress and Box spring Pillows: Number: 2 Type of pillows: Synthetic (hypoallergenic, polyester) and Foam Bedroom contains: Minimal items Pets: 5 cat(s) and 1 dog(s) [place] on a farm: No Disabled; Does not work outside of home. Entered by: Luis Alberto Carreon MD 03/13/2010 education: 12 service: no hobbies/interests: Reading, grandkids transfusions: No Tattoos- Right leg marjorie, right breast heart exercise: Chasing kids and dogs diet: No junk, portions scientology/denominational: restorationism marital status: 2002 children: 3 gc: 7 ggc: 0 pets: 10 cats- outside and 1 inside, 2 dogs exposure to violence/threats/abuse: no things to improve: no Social Determinants of Health Financial Resource Strain: Not on file Food Insecurity: No Food Insecurity (08/10/2019) Hunger Vital Sign Worried About Running Out of Food in the Last Year: Never true Ran Out of Food in the Last Year: Never true Transportation Needs: Not on file Physical Activity: Not on file Stress: Not on file Social Connections: Not on file Intimate Partner Violence: Not on file Housing Stability: Not on file ROS: GEN: no weight loss, fever, fatigue HEENT: no changes in vision or hearing, no sinus problems, no sore throat, no hoarseness RESPIRATORY: no cough, wheezing, SOB or change in breathing CARDIOVASCULAR: no exertional chest pain, dyspnea, palpitations GI: see HPI , otherwise negative : no dysuria, hematuria, frequency MUSCULOSKELETAL: no change in joint pains, no new arthritis PSYCHIATRIC: no significant anxiety or depression, unchanged sleep pattern HEME: no bleeding tendency, no clotting tendency NEURO: no significant headache, no seizures , no tremors SKIN: no new rashes, no itching Physical Exam: Blood pressure 147/76, pulse 80, temperature 35.8 C (96.5 F), weight 90.7 kg (200 lb), last menstrual period 02/28/2007. Constitutional: alert, healthy, well nourished Head: normocephalic, atraumatic Eyes: conjunctiva non-injected, sclera white Neck: supple, no adenopathy Lungs: clear to auscultation, breath sounds are equal and symmetric Heart: regular rate & rhythm and no murmur, gallops or rubs Abdomen: soft, no abnormal masses, + tenderness (RUQ; moderate) Extremities: no edema, no skin discoloration Skin: no obvious rashes or significant lesions Imaging: reviewed outside imaging independently; reviewed outside notes independently Lab: reviewed independently Impression: Christina Monge is a 63 year old female with cholelithiasis. I feel that the patient is a good candidate for laparascopic cholecystectomy. Treatment Plan: Laparascopic cholecystectomy without intraoperative cholangiogram. Risks discussed with the patient, including but not limited to: bleeding, infection, conversion to open, injury to the common bile duct, bile leak, retained common bile duct stone requiring ERCP, postoperative diarrhea and intolerance to foods postoperatively. Expected same day nature of surgery and recovery periodreviewed. All of the patient's questions have been answered. Will schedule at patient's convenience. Attending: Peng Powell MD 03/30/2024 2:21 PM documented in this encounter Nursing Notes * Jahaira Vera LPN - 03/30/2024 2:30 PM EDT Patient scheduled at [facility] for Lap Kaycee with Dr Peng Powell. Date of Test: 04/16/2024 Medications reviewed. EKG obtained Labs: not obtained, her labs are current Permit signed. Patient verbalizes understanding of pre- and post op instructions. Written instructions given for review at later date. Jahaira Vera LPN 03/30/2024 * Jami Youngblood MED ASSIST - 03/30/2024 1:51 PM EDT Pt: pain in the back, gallstone, pcp referred her to see the surgeon. Pain level of 10 last night it ws 15! Took tylenol but did not work. documented in this encounter Plan of Treatment Upcoming Encounters Date Type Department Care Team (Late st Contact Info) Description 05/01/2024 2:55 PM EDT Office Visit Urogynecology [facility] [address] [place] [address] Vincent Segovia MD [address] [place] [address] Nurse Marci Bonds [facility] [address] [place] [address] 05/02/2024 10:45 AM EDT Office Visit General Surgery, [facility] [address] [place] [address] Peng Powell MD [address] [place] [address] 05/02/2024 11:30 AM EDT Office Visit [address] [place] [address] Lima Riggins [address] [place] [address] 05/17/2024 3:00 PM EDT Office Visit Orthopaedics [facility] [address] [place] [address] Arben Soriano, [address] [place] [address] 08/06/2024 11:30 AM EDT Imaging [facility] [address] [facility] [place] [address] 08/08/2024 3:40 PM EDT Office Visit Otolaryngology [facility] [address] [facility] [place] [address] Marie Flower PA-C [address] [facility] [place] [address] 09/20/2024 3:00 PM EST Office Visit Hematology/Oncology [facility] [address] [facility] [address] Inez Carter CRNP [address] [facility] [place] [id number] Scheduled Orders Name Type Priority Associated Diagnoses Orde r Schedule EKG EKG Routine Pre-op examination Expected: 03/30/2024 (Approximate), Expi res: 04/29/2025 Scheduled Procedures Name Priority Associated Diagnoses Date/Ti [...] Diagnosis Pre-op examination- Primary Preoperative examination, unspecified Symptomatic cholelithiasis Calculus of gallbladder without mention of cholecystitis or obstruction documented in this encounter Care Teams Quality Compliance Coordinator Relationship Specialty Start Date End Date Lima Riggins DO [address] [facility] [place] [address] PCP - General Family Medicine 12/21/18 documented as of this encounter
--- OUTSIDE RECORDS SUMMARY | 2024-04-08 15:15 | External Medical Summary | Summary of Care ---
Author Name Unknown Organization [facility] Address [address] [address] Phone [phone] Care Team Providers Care Electrician Ship Name Role Phone Lima Riggins DO Primary Care Provider + [phone] Reason for Referral * Evaluate & Treat - Unlimited Visits (Within 10 days (routine)) - Pending Review Specialty Diagnoses / Procedures Referred By Juan campbell Referred To Contact General Surgery Diagnoses Gallstones RUQ pain Lima Riggins DO [address] [place] [facility] [address] Referral ID Status Reason Start Date Expiration Date Visits Requested Visits Authorized [id number] Pending Review Specialty Services Required 03/30/[phone] Question Answer Referral Priority Within 10 days (routine) Where should this appointment be scheduled? [facility] What condition is the patient being seen for? General Surgery Conditions What condition is the patient being seen for? Gallbladder Reason for Visit * Reason Comments Hospital Follow-Up Will need to get a s urgeon within a week and has already waited a week for her gallbladder Encounter Details Date Type Department Care Team (Late st Contact Info) Description 03/30/2024 11:10 AM EDT Office Visit [facility] [address] [place] [phone] Lima Riggins DO [address] [facility] [phone] Gallstones*; RUQ pain Allergies Active Allergy Reactions Criticality [...] Respimat 2.5 MCG/ACT Inhalation Aerosol Solution (Tiotropium [place] Monohydrate) INHALE 2 PUFFS EVERY MORNING 12 [...] yrs 03/27/1998,03/29/1997,09/20 Pneumococcal Conjugate Vacci ne, 20-valent ([id number]) 05/17/2022 Pneumococcal Conjugate Vacci ne, 7 Valent 08/07/2013 Pneumococcal Polysaccharide PPV23 (Pneumovax) 03/03/2009 Seasonal Influenza, PF, 6 M & above, IM , (FluLaval or Fluzone) 07/21/2022,09/10/2021,08/06/2020,07/31,08/03/2018,08/04/2017 Seasonal Influenza, Quadriva lent Hd (Fluzone Hd) 07/21/2023 Seasonal Influenza, Quadriva lent, No Preserve, IM 07/21/2016 Seasonal Influenza, Split, I IV3, With Preserve, Inj 07/21/2015,08/20/2014,07/16/2013,09/10/2011,07/03/2011,08/03/2010,08/26/20 09 08/20/2015 TDAP (age 10 and older)(Boostrix) 01/30/2014 TDAP, Age 7 and older, IM (Adacel) 02/14/2007 Zoster Vaccine Recombinant (Shingrix) 02/14/2019 ,08/15/2018 documented as of this encounter Social History Tobacco Use Types Packs/Day Years Used Date Smoking Tobacco: Former Cigarettes 1 12/01/1964 - 09/30/1990 Passive Smoke Exposure: Past Smokeless Tobacco: Never Tobacco Cessation:Counseling Given: Not Answered Alcohol Use Standard Drinks/Week Comments Yes 0 [...] Sign Reading Time Taken Comments Blood Pressure 136/66 03/30/2024 10:40 AM EDT Pulse 78 03/30/2024 10:40 AM EDT Temperature 36.4 C (97.5 F) 03/30/2024 1 0:40 AM EDT Respiratory Rate 18 03/30/2024 10:4 0 AM EDT Oxygen Saturation 97% 03/30/2024 10: 40 AM EDT Inhaled Oxygen Concentration - - Weight 90.2 kg (198 lb 14.4 oz) 024 10:40 AM EDT Height 154.9 cm (5' 1") 03/30/2024 10:4 0 AM EDT Body Mass Index 37.58 03/30/2024 10:40 AM EDT documented in this encounter Progress Notes * Gilson Lima Joe, DO - 03/30/2024 10:57 AM EDT Subjective: Christina Monge is a 63 year old female. Chief Complaint Patient presents with Hospital Follow-Up Will need to get a surgeon within a week and has already waited a week for her gallbladder HPI: 63 year old female here today for ER follow-up she went to [place] [facility] on 03/22 for pain in the R side of her chest and radiated around to the scapula area. In the ER she was told she had gallstones and transferred her to [place] and did a HIDA scan, and surgery saw patient recommended outpatient surgery. I do not have the ultrasound or the HIDA scan reports will obtain copies. Today she is still having RUQ pain, not severe. Eating okay. And no vomiting. PHM: Patient Active Problem List Diagnosis Steatohepatitis, non-alcoholic Vitamin D deficiency Facet arthropathy, cervical Cervical spondylosis Depression with anxiety Esophageal reflux Irritable bowel syndrome Gastroparesis Moderate persistent asthma Chronic back pain Dyslipidemia, goal LDL below 70 Prolapse of vaginal vault after hysterectomy Incontinence without sensory awareness H/O: hysterectomy History of Clostridium difficile colitis Diabetic polyneuropathy associated with type 2 diabetes mellitus (HCC) Depression, major, recurrent, in remission (HCC) Dupuytren's disease of palm Sprain of left wrist Current Outpatient Medications Medication Sig Dispense Refill POTASSIUM GLUCONATE 595 MG PO CAPS Take by mouth. Pt taking 99 mg twice daily [facility] Use as directed 1 Each 1 NEBULIZER/TUBING/MOUTHPIECE [...] by mouth at bedtime. 90 Tablet 3 Accu-Chek Softclix Lancets TEST BLOOD SUGAR TWICE DAILY 200 Each 3 Accu-Chek Guide In Vitro Strip (Glucose Blood) TEST BLOOD SUGAR TWICE DAILY 200 Strip 3 Atorvastatin Calcium 80 MG Oral Tablet (Lipitor) TAKE 1 TABLET AT BEDTIME 90 Tablet 2 Esomeprazole Magnesium 40 MG Oral Capsule Delayed Release TAKE 1 CAPSULE EVERY DAY BEFORE [id number] Capsule 10 traZODone HCl 100 MG Oral Tablet (Desyrel) TAKE 1 TABLET AT BEDTIME 90 Tablet 3 busPIRone HCl 10 MG Oral Tablet (Buspar) Take 1 Tablet by mouth in the morning and 1 Tablet before bedtime. 180 Tablet 5 Montelukast Sodium 10 MG Oral Tablet (Singulair) [...] 3 mL before bedtime. 100 mL 3 DULoxetine HCl 60 MG Oral Capsule Delayed Release Particles (Cymbalta) TAKE 1 CAPSULE EVERY DAY 90 Capsule 3 Lisinopril 5 MG Oral Tablet (Prinivil) TAKE 1 TABLET EVERY MORNING 90 Tablet 3 Metoclopramide HCl 5 MG Oral Tablet (Reglan) TAKE 1 TABLET IN THE MORNING AND TAKE 1 TABLET IN THE EVENING 180 Tablet 3 Spiriva Respimat 2.5 MCG/ACT Inhalation Aerosol Solution (Tiotropium [place] Monohydrate) INHALE 2 PUFFS EVERY MORNING 12 g 3 oxyBUTYnin Chloride ER 10 MG Oral Tablet Extended Release 24 Hour (Ditropan XL) Take 1 Tablet by mouth in the morning. 90 Tablet 3 Mirabegron ER 50 MG Oral Tablet Extended Release 24 Hour (Myrbetriq) Take 1 Tablet by mouth in the morning. 90 Tablet 3 Ketoconazole 2 % External Shampoo (Nizoral) Apply ketoconazole shampoo 3 days in a row, leaving on for 5 min before rinsing. Then repeat 1-2 times weekly as needed (Patient not taking: Reported on 02/27/2024) 120 mL 4 Doxycycline Hyclate 100 MG Oral Capsule TAKE 1 CAPSULE IN THE MORNING AND 1 CAPSULE BEFORE BEDTIME UNTIL GONE (Patient not taking: Reported on 03/30/2024) 20 Capsule 3 hydrOXYzine HCl 25 MG Oral Tablet Take 1 Tablet by mouth every 6 hours as needed for Anxiety or Itching. (Patient not taking: Reported on 02/03/2024) 40 Tablet 2 Diclofenac Sodium 75 MG Oral Tablet Delayed [...] taking: Reported on 02/27/2024) 20 mL 0 No current facility-administered medications for this visit. Review of patient's allergies indicates: Allergen Reactions Clindamycin rash Dilaudid [Hydromorphone Hcl] Itching No rash Gabapentin Itching Keflex [Cephalexin] Urticarial rash Latex Rash Local contact rash Mupirocin Soreness at nose Neosporin Original [Neomycin-Bacitracin Zn-Polymyx] Other (Please comment) Swelling of hands- topical only Rocephin [Ceftriaxone] Rash Sulfa Antibiotics Hives Zofran Rash All over legs Objective: BP 136/66 | Pulse 78 | Temp 36.4 C (97.5 F) | Resp 18 | Ht 1.549 m (5' 1") | Wt 90.2 kg (198 lb14.4 oz) | LMP 02/28/2007 | SpO2 97% | BMI 37.58 kg/m | BSA 1.97 m Physical Exam: General: alert, healthy, and no distress, not jaundice Heart: regular rate & rhythm, no murmur, and no gallops Lungs: chest symmetric with normal AP diameter, no chest deformities noted, no chest wall tenderness, lungs clear to auscultation Abdomen: abdomen soft, normal bowel sounds, no masses or organomegaly, and + TTP over the RUQ area. ASSESSMENT/PLAN: Gallstones (Primary) - SURGERY REFERRAL OP - HEPATIC FUNCTION PANEL; Future; Expected date: 03/30/2024 - BASIC METABOLIC PANEL; Future; Expected date: 03/30/2024 RUQ pain - SURGERY REFERRAL OP - HEPATIC FUNCTION PANEL; Future; Expected date: 03/30/2024 - BASIC METABOLIC PANEL; Future; Expected date: 03/30/2024 Will obtain copies of HIDA and US Gallbladder. Re peat labs as above. Referral to surgery Symptoms worsen to then report to the ER. Follow Up: Return for Labs Today. | For: Labs Today Lima Riggins DO documented in this encounter Nursing Notes * Daniela Valiente LPN - 03/30/2024 10:46 AM EDT The patient has been properly identified by confirmation of name and date of . Chief Complaint Patient presents with Hospital Follow-Up Will need to get a surgeon within a week and has already waited a week for her gallbladder documented in this encounter Plan of Treatment Upcoming Encounters Date Type Department Care Team (Late st Contact Info) Description 03/30/2024 2:00 PM EDT Office Visit General Surgery, [facility] [address] [place] [address] Peng Powell MD [address] [place] [address] 04/23/2024 2:30 PM EDT Office Visit Gastroenterology, [facility] [address] [place] [address] Salomón Carter CRNP [address] [place] [address] 05/01/2024 2:55 PM EDT Office Visit Urogynecology [facility] [address] [place] [address] Vincent Segovia MD [address] [place] [address] Nurse Marci Bonds [facility] [address] [place] [address] 05/02/2024 11:30 AM EDT Office Visit [address] [phone] Lima Riggins [address] [address] 05/17/2024 3:00 PM EDT Office Visit Orthopaedics [facility] [address] [place] [address] Arben Soriano, [address] [place] [address] 08/06/2024 11:30 AM EDT Imaging Radiology [facility] 1st [facility] [address] [place] [address] 08/08/2024 3:40 PM EDT Office Visit Otolaryngology [facility] [address] [place] [address] Marie Flower PA-C [address] [place] [address] 09/20/2024 3:00 PM EST Office Visit Hematology/Oncology [facility] [address] [place] [address] Inez Carter CRNP [address] [place] [address] [place] [address] Pending Results Name Type Priority Associated Diagnoses Date /Time HEPATIC FUNCTION PANEL Lab Routine Gallstones RUQ pain 03/30/2024 11:24 AM EDT BASIC METABOLIC PANEL Lab Routine Gallstones RUQ pain 03/30/2024 11:24 AM EDT Scheduled Orders Name Type Priority Associated Diagnoses Orde r Schedule HEPATIC FUNCTION PANEL Lab Routine Gallstones RUQ pain Expected: 03/30/2024 (Approximate), Expires: 03/30/2025 BASIC METABOLIC PANEL Lab Routine Gallstones RUQ pain Expected: 03/30/2024 (Approximate), Expires: 03/30/2025 Scheduled Procedures Name Priority Associated Diagnoses Date/Ti me COLONOSCOPY FLEXIBLE PROXIMA L DIAGNOSTIC Recall Special screening for malignant neoplasms, colon Scheduled Referrals Name Type Priority Associated Diagnoses Orde r Schedule SURGERY REFERRAL OP Referral Within 10 da ys (routine) Gallstones RUQ pain Ordered: 03/30/2024 Health Maintenance Due Date Last Done Comments Cologuard 2003 Fecal Occult Blood Test 2003 Sigmoidoscopy 2003 COVID-19 Vaccine (2 - season) 2023 04/03/2021 DTaP,Tdap,and Td Vaccines (3 - Td or Tdap) 01/31/2024 01/30/2014, 02/14/2007 B-12 04/04/2024 04/04/2023, 050 12/2021, 03/10/2021, Additional history exists HbA1c 05/02/2024 [...] as of this encounter Visit Diagnoses Diagnosis Gallstones- Primary Calculus of gallbladder without mention of cholecystitis or obstruction RUQ pain Abdominal pain, right upper quadrant documented in this encounter Care Teams Electrician Ship Relationship Specialty Start Date End Date Lima Riggins DO [address] [place], [place] [phone] PCP - General Family Medicine 12/21/18 documented as of this encounter
--- OUTSIDE RECORDS SUMMARY | 2024-04-08 15:15 | External Medical Summary | Summary of Care ---
Author Name Unknown Organization [facility] Address [address] [place] [address] Phone [phone] Care Team Providers Care Disposal Plant Operator Name Role Phone Lima Riggins DO Primary Care Provider [phone] Reason for Visit * Evaluate & Treat - Unlimited Visits (Within 10 days (routine)) - Pending Review Specialty Diagnoses / Procedures Referred By Juan campbell Referred To Contact General Surgery Diagnoses Gallstones RUQ pain Lima Riggins DO [address] [place] [address] Referral ID Status Reason Start Date Expiration Date Visits Requested Visits Authorized [id number] Pending Review Specialty Services Required 03/30/[phone] Encounter Details Date Type Department Care Team (Latest Contact Info) Description 03/30/2024 2:00 PM EDT Office Visit General Surgery, [facility] [address] [place] [address] Peng Powell MD [address] [place] [address] Pre-op examination*; Symptomatic cholelithiasis Allergies Active Allergy [...] Respimat 2.5 MCG/ACT Inhalation Aerosol Solution (Tiotropium [place] Monohydrate) INHALE 2 PUFFS EVERY MORNING 12 [...] yrs 03/27/1998,03/29/1997,09/20 Pneumococcal Conjugate Vacci ne, 20-valent ([id number]) 05/17/2022 Pneumococcal Conjugate Vacci ne, 7 Valent [...] performed by Cas Watson DO at ENDOSCOPY [facility] EGD, FLEXIBLE, DIAGNOSTIC 06/24/2022 normal bx / [facility] EGD, FLEXIBLE, W/BIOPSY 01/16/2009 normal EGD, W/ENDOSCOPIC US 08/19/2011 benign appearing lymph node, repeat CT Scan in 6 months EGD, W/ENDOSCOPIC US 11/07/2014 mild gastritis, fatty liver/ESOPHAGOGASTRODUODENOSCOPY (EGD), FLEXIBLE, TRANSORAL, ENDOSCOPIC ULTRASOUND performed by Cas Watson DO at ENDOSCOPY [facility] LIGATE/CUT OVIDUCT(S) 10/31/1980 Tubal Ligation NASAL/SINUS ENDOSCOPY, SURGICAL Right 03/03/2022 NASAL SINUS ENDOSCOPY CONTROL NASAL SINUS HEMORRHAGE performed by Nata Villafana MD at OR [facility] RELIEVE PRESSURE ON FOOT/TOE NERVE 10/31/2000 Dr Velasco- left foot REMOVE TONSILS & ADENOIDS, AGE 12+ 10/31/1973 Tonsillectomy/Adenoids,12+ Y/O TOTAL ABD HYSTERECTOMY W/WO REMOVAL OF TUBE(S) 10/31/2007 Dr 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 [...] Care Team (Late st Contact Info) Description 04/03/2024 3:20 PM EDT Nurse Only Ancillary [facility] [place] [address] [place] [phone] [place], Nurse [address] [place] [address] 05/01/2024 2:55 PM EDT Office Visit Urogynecology [facility] [address] [place] [address] Vincent Segovia MD [address] [place] [address] Nurse Marci Bonds [address] [place] [address] 05/02/2024 10:45 AM EDT [facility] [address] [place] [address] Peng Powell MD [address] [place] [address] 05/02/2024 11:30 AM EDT Office Visit [place] [address] [place] [facility] [place] [phone] Lima Riggins DO [address] [place] [facility] [address] 05/17/2024 3:00 PM EDT Office Visit Orthopaedics [facility] [address] [facility] [place] [address] Arben Soriano, [address] [place] [address] 08/06/2024 11:30 AM EDT Imaging Radiology [facility] 1st Floor, [place] [address] [facility] [place] [address] 08/08/2024 3:40 PM EDT Office Visit Otolaryngology [facility] [address] [facility] [place] [address] Marie Flower PA-C [address] [facility] [place] [address] 09/20/2024 3:00 PM EST Office Visit Hematology/Oncology [facility] [address] [facility] [place] [phone] Inez Carter CRNP [address] [place] [phone] Scheduled Orders Name Type Priority Associated Diagnoses [...] obstruction documented in this encounter Care Teams Disposal Plant Operator Relationship Specialty Start Date End Date Lima Riggins DO [address] [facility] [place] [address] PCP - General Family Medicine 12/21/18 documented as of this encounter
--- OUTSIDE RECORDS SUMMARY | 2024-04-08 15:16 | External Medical Summary | Summary of Care ---
Author Name Unknown Organization [facility] Address [address] [facility] [place] [address] Phone [phone] Care Team Providers Care Deicer Element Winder Machine Name Role Phone Lima Riggins Joe MINER Primary Care Provider [phone] Reason for Visit * Reason Comments Outpatient Testing Encounter Details Date Type Department Care Team ([facility] st Contact Info) Description 03/12/2024 10:30 AM EDT Laboratory Laboratory Patient Service [address] [phone] [facility] [address] [place] [phone] Thrombocytosis; Lymphocytosis; Iron deficiency anemia, unspecified iron deficiency anemia type Allergies Active Allergy Reactions Criticality Noted Date [...] as of this encounter (statuses as of 03/12/2024) Medications Medication Sig Dispensed Refills Start Date End Date Status POTASSIUM GLUCONATE 595 MG PO CAPS Take by mouth. Pt taking 99 mg twice daily 0 12/18/2012 Active NEBULIZER COMPRESSOR MISCIndications:Mod erate persistent asthma,Asthma flare Use as directed 1 Each 1 06/21/2013 Active NEBULIZER/TUBING/MO UTHPIECE KITIndications:Mode rate persistent asthma,Asthma flare use with nebulizer 1 Kit 1 06/21/2013 Active Multiple Vitamins-Minerals (DAILY MULTIVITAMIN) CAPS Take by mouth. 0 Ac tive Vitamin D 125 MCG (5000 UT) Oral Capsule Take by mouth. 0 Active Benefiber Oral Powder Take 4 g by mouth daily. 730 g 12 01/07/2021 Active Vitamin B12 1000 MCG Oral Tablet Extended Release Take by mouth. 0 Acti ve Accu-Chek Guide w/Device Kit Use to test blood glucose twice daily; E11.9 1 Kit 0 09/01/2021 Active Cinnamon Plus Chromium 200-1000 MCG-MG Oral Capsule (Chromium-Cinnamon) Take by mouth . 0 Active Calcium 500-125 MG-UNIT Oral Tablet Take by mouth 1 Tablet in the morning. At noon . 0 Active Iron 325 (65 Fe) MG Oral Tablet Take by mouth daily . At noon 0 Active Albuterol Sulfate HFA 108 (90 Base) [...] recurrent episode. 18 Tablet 11 05/05/2023 Active Spiriva Respimat 2.5 MCG/ACT Inhalation Aerosol Solution (Tiotropium [place] Monohydrate) Inhale 2 Puffs by mouth in the morning. 12 g 3 2023 Active Myrbetriq 50 MG Oral Tablet Extended Release 24 Hour (Mirabegron ER) Take 1 Tablet by mouth in the morning. 90 Tablet 3 06/07/2023 Active Oxybutynin Chloride ER 10 MG Oral Tablet Extended Release 24 Hour (Ditropan XL) Take 1 Tablet by mouth in the morning. 90 Tablet 3 06/07/2023 Active metFORMIN HCl ER 500 MG Oral [...] UNTIL GONE 20 Capsule 3 10/17/2023 Active busPIRone HCl 10 MG Oral Tablet (Buspar)Indications [...] 3 mL before bedtime. 100 mL 0 11/24/2023 Active Ipratropium-Albuter ol 0.5-2.5 (3) MG/3ML Inhalation Solution (Duoneb) Inhale 3 mL via nebulizer in the morning and 3 mL at noon and 3 mL in the evening and 3 mL before bedtime. 100 mL 3 11/24/2023 Active Diclofenac Sodium 75 MG Oral Tablet Delayed Release (Voltaren) Take 1 Tablet by mouth 2 times a day as needed. 0 10/01/2023 Active Oxymetazoline HCl 0.05 % Nasal Solution Administer 2 Sprays into each nostril 2 times a day as needed for Congestion (for congestion). Do not use for more than three days. 20 mL 0 12/09/2023 Active Additional Information Patient not taking.Reported [...] THE EVENING 180 Tablet 3 02/27/2024 Active documented as of this encounter (statuses as of 03/12/2024) Active Problems Problem Noted Date Diagnosed Date [...] as of this encounter (statuses as of 03/12/2024) Resolved Problems Problem Noted Date Diagnosed Date [...] as of this encounter (statuses as of 03/12/2024) Immunizations Name Administration Dates Next Due Covid-19 Ad26, Single Dose (Lila/J&J) 04/03/2021 Hepatitis B, 20+ yrs 03/27/1998,03/29/1997,09/20 Pneumococcal Conjugate Vacci ne, 20-valent ([id number]) 05/17/2022 Pneumococcal Conjugate Vacci ne, 7 Valent 08/07/2013 Pneumococcal Polysaccharide PPV23 (Pneumovax) 03/03/2009 Seasonal Influenza, PF, 6 M & above, IM , (FluLaval or Fluzone) 07/21/2022,09/10/2021,08/06/2020,07/31,08/03/2018,08/04/2017 Seasonal Influenza, Quadriva lent Hd (Fluzone Hd) 07/21/2023 Seasonal Influenza, Quadriva lent, No Preserve, IM 07/21/2016 Seasonal Influenza, Split, I IV3, With Preserve, Inj 07/21/2015,08/20/2014,07/16/2013,0910/2011,07/03/2011,08/03/2010,08/26/20 09 08/20/2015 TDAP (age 10 and older)(Boostrix) 01/30/2014 TDAP (age 11 and older)(Adacel) 02/14/2007 Zoster Vaccine Recombinant (Shingrix) 02/14/2019 ,08/15/2018 documented as of this encounter Social History Tobacco Use Types Packs/Day Years Used Date Smoking Tobacco: Former Cigarettes 25 1 12/01/1964 - 09/30/1990 Passive Smoke Exposure: [...] Care Team (Late st Contact Info) Description 03/15/2024 11:15 AM EDT Office Visit Orthopaedics [facility] [address] [place] [address] Arben Soriano DO [address] [place] [address] 03/19/2024 11:30 AM EDT Office Visit Hematology/Oncology [facility] [address] [facility] [phone] Inez Carter CRNP [address] [facility] [address] 04/23/2024 2:30 PM EDT Office Visit Gastroenterology, [facility] [address] [place] [address] Salomón Carter CRNP [address] [place] [address] 05/01/2024 2:55 PM EDT Office Visit Urogynecology [facility] [address] [place] [address] Vincent Segovia MD [address] [place] [address] [facility] [address] [place] [address] 05/02/2024 11:30 AM EDT Office Visit [facility] [address] [place] [phone] Lima Riggins, [address] [place] [address] 08/06/2024 11:30 AM EDT Imaging Radiology [facility] 1st [facility] [address] [place] [address] Pending Results Name Type Priority Associated Diagnoses Date /Time CBC WITH WBC DIFFERENTIAL Lab STAT Thrombocytosis Lymphocytosis 03/12/2024 10:32 AM EDT COMPREHENSIVE METABOLIC PANEL Lab STAT Thrombocytosis Lymphocytosis 03/12/2024 10:32 AM EDT FERRITIN Lab STAT Iron deficiency anemia, unspecified iron deficiency anemia type 03/12/2024 10:32 AM EDT IRON SCREEN, INCLUDING TIBC Lab STAT Iron deficiency anemia, unspecified iron deficiency anemia type 03/12/2024 10:32 AM EDT CBC Lab STAT Thrombocytosis Lymphocytosis 03/12/2024 10:32 AM EDT DIFFERENTIAL, AUTOMATED Lab STAT Thrombocytosis Lymphocytosis 03/12/2024 10:32 AM EDT Scheduled Procedures Name Priority Associated Diagnoses Date/Ti me COLONOSCOPY FLEXIBLE PROXIMA L DIAGNOSTIC Recall Special screening for malignant neoplasms, colon Health Maintenance Due Date Last Done Comments Cologuard 2003 Fecal Occult Blood Test 2003 Sigmoidoscopy 2003 COVID-19 Vaccine ( - season) 2023 04/03/2021 DTaP,Tdap,and Td Vaccines (3 - Td or Tdap) 01/31/2024 01/30/2014, 02/14/2007 B-12 04/04/2024 04/04/2023, 05/0 12/2021, 03/10/2021, Additional history exists HbA1c 05/02/2024 [...] history exists Colorectal Cancer Screening 02/17/2025 GFR 02/26/2025 02/27/2024, 12/2023, 07/21/2023, Additional history exists Lipid Panel 04/04/2028 04/04/2023, [...] as of this encounter Visit Diagnoses Diagnosis Thrombocytosis Essential thrombocythemia Lymphocytosis Lymphocytosis (symptomatic) Iron deficiency anemia, unspecified iron deficiency anemia type documented in this encounter Care Teams Deicer Element Winder Machine Relationship Specialty Start Date End Date Lima Riggins DO [address] [place] [address] PCP - General Family Medicine 12/21/18 documented as of this encounter
--- OUTSIDE RECORDS SUMMARY | 2024-04-08 15:16 | External Medical Summary | Summary of Care ---
Author Name Unknown Organization [facility] Address [address] [facility] [address] Phone [phone] Care Team Providers Care Lay Out Carpenter Name Role Phone Gilson Lima Joe MINER Primary Care Provider [phone] Encounter Details Date Type Department Care Team (Late st Contact Info) Description 03/20/2024 Telephone Orthopaedics [facility] [address] [place] [address] Arben Soriano DO [address] [place] [address] Allergies Active Allergy Reactions Criticality Noted Date [...] as of this encounter (statuses as of 03/22/2024) Medications Medication Sig Dispensed Refills Start Date [...] recurrent episode. 18 Tablet 11 05/05/2023 Active Myrbetriq 50 MG Oral Tablet Extended [...] Active busPIRone HCl 10 MG Oral Tablet (Buspar)Indication [...] Respimat 2.5 MCG/ACT Inhalation Aerosol Solution (Tiotropium [place] Monohydrate) INHALE 2 PUFFS EVERY MORNING 12 g 3 03/14/2024 Active Oxybutynin Chloride ER 10 MG Oral Tablet Extended Release 24 Hour (Ditropan XL) Take 1 Tablet by mouth in the morning. 90 Tablet 3 06/07/2023 4 Discontinu ed(Refill) documented as of this encounter (statuses as of 03/22/2024) Active Problems Problem Noted Date Diagnosed Date [...] as of this encounter (statuses as of 03/22/2024) Resolved Problems Problem Noted Date Diagnosed Date [...] Chest pain 07/16/2010 03/17/2012 Diverticulosis of colon 06/11/2010 1010/2013 Lumbago 05/14/2010 03/17/2012 Generalized osteoarthritis 05/14/2010 1 [...] as of this encounter (statuses as of 03/22/2024) Immunizations Name Administration Dates Next Due Covid-19 Ad26, Single Dose (Lila/J&J) 04/03/2021 Hepatitis B, 20+ yrs 03/27/1998,03/29/1997,09/20 Pneumococcal Conjugate Vacci ne, 20-valent ([id number]) 05/17/2022 Pneumococcal Conjugate Vacci ne, 7 Valent [...] encounter Miscellaneous Notes * Telephone Encounter - Jennifer Patterson LPN - 03/22/2024 3:15 PM EDT Spoke with pt, states she has no obvious rash. States her knees started itching the night after shereceived Durolane injections. States her legs were itching so severely she was thinking about goingto the ED. Advised pt Dr Soriano didn't think it was related to Durolane injections. Recommended OTC Benadryl and cool compresses. Jennifer Anderson LPN * Telephone Encounter - Pattie Zuniga MED ASSIST - 03/21/2024 8:06 AM EDT Attempted to call patient back. Left message for patient * Telephone Encounter - Jorge Felipe OSA - 03/20/2024 11:01 AM EDT Patient had inj on 03/15 and having a lot of itching it started behind the knee. I did confirm the best call back number is [phone], please advise. documented in this encounter Plan of Treatment Upcoming Encounters Date Type Department Care Team (Late st Contact Info) Description 04/23/2024 2:30 PM EDT Office Visit Gastroenterology, [facility] [address] [place] [address] Salomón Carter CRNP [address] [place] [address] 05/01/2024 2:55 PM EDT Office Visit Urogynecology [facility] [address] [place] [address] Vincent Segovia MD [address] [place] [address] BondsNurse Marci adamson [facility] [address] [place] [address] 05/02/2024 11:30 AM EDT Office Visit [address] [address] Lima Riggins, [address] [address] 05/17/2024 3:00 PM EDT Office Visit Orthopaedics [facility] [address] [place] [address] Arben Soriano, DO [address] [place] [address] 08/06/2024 11:30 AM EDT Imaging Radiology [facility] 1st [facility] 132 [facility] [place] [address] 08/08/2024 3:40 PM EDT Office Visit Otolaryngology [facility] 132 [facility] [place] [address] Marie Flower PA-C [address] [place] [address] 09/20/2024 3:00 PM EST Office Visit Hematology/Oncology [facility] [place] [address] [facility] [place] [address] Inez Carter CRNP [address] [place] [address] Scheduled Procedures Name Priority Associated Diagnoses Date/Ti [...] filedocumented as of this encounter Care Teams Lay Out Carpenter Relationship Specialty Start Date End Date Lima Riggins DO [address] [place] [address] PCP - General Family Medicine 12/21/18 documented as of this encounter
--- OUTSIDE RECORDS SUMMARY | 2024-04-08 15:16 | External Medical Summary | Summary of Care ---
Author Name Unknown Organization [facility] Address [address] [facility] [place] [address] Phone [phone] Care Team Providers Care Project Management Name Role Phone Gilson Lima Joe DO Primary Care Provider [phone] Reason for Visit * Reason Comments Follow Up Durolane B/L knees, * Precert (Within 10 days (routine)) - Authorized Specialty Diagnoses / Procedures Referred By Juan campbell Referred To Contact Diagnoses Bilateral primary osteoarthritis of knee Procedures CT INJ, DUROLANE 1 MG Arben Soriano DO [address] [place] [address] Arben Soriano DO [address] [place] [address] Referral ID Status Reason Start Date Expiration Date V isits Requested Visits Authorized [id number] Authorized Precert 02/06/2024 02/05/2025 [id number] Encounter Details Date Type Department Care Team (Latest Contact Info) Description 03/15/2024 11:15 AM EDT Office Visit Orthopaedics [facility] [address] [place] [address] Arben Soriano DO [address] [place] [address] Primary osteoarthritis of both knees* Allergies Active Allergy Reactions Criticality Noted Date [...] as of this encounter (statuses as of 03/15/2024) Medications Medication Sig Dispensed Refills Start Date [...] Respimat 2.5 MCG/ACT Inhalation Aerosol Solution (Tiotropium [place] Monohydrate) INHALE 2 PUFFS EVERY MORNING 12 g 3 03/14/2024 Active Hospital, Clinic, or Other Facility Administered Medication Ordered Dose Route Frequency Start Date End Date Status Sodium Hyaluronate (Durolane) inj 60 mgIndications:Primary osteoarthritis of both knees 60 mg IX ONCE 03/15/2024 03/16/2024 Active Sodium Hyaluronate (Durolane) inj 60 mgIndications:Primary osteoarthritis of both knees 60 mg IX ONCE 03/15/2024 03/16/2024 Active documented as of this encounter (statuses as of 03/15/2024) Active Problems Problem Noted Date Diagnosed Date [...] as of this encounter (statuses as of 03/15/2024) Resolved Problems Problem Noted Date Diagnosed Date [...] as of this encounter (statuses as of 03/15/2024) Immunizations Name Administration Dates Next Due Covid-19 Ad26, Single Dose (Lila/J&J) 04/03/2021 Hepatitis B, 20+ yrs 03/27/1998,03/29/1997,09/20 Pneumococcal Conjugate Vacci ne, 20-valent ([id number]) 05/17/2022 Pneumococcal Conjugate Vacci ne, 7 Valent [...] Sign Reading Time Taken Comments Blood Pressure - - Pulse - - Temperature - - Respiratory Rate - - Oxygen Saturation - - Inhaled Oxygen Concentration - - Weight 93.6 kg (206 lb 5.6 oz) 03/15/2024 11:17 AM EDT Height 154.9 cm (5' 1") 03/15/2024 11:17 AM EDT Body Mass Index 38.99 03/15/2024 11:17 AM EDT documented in this encounter Progress Notes * Arben Soriano, DO - 03/15/2024 11:46 AM EDT ORTHOPAEDIC SURGERY - Clinic Note/Visco Injection SUBJECTIVE: Christina Monge is a 63 year old female. Chief Complaint Patient presents with Follow Up Durolane B/L knees, HPI: She presents for bilateral knee Durolane injections today. Review of patient's allergies indicates: Allergen Reactions Clindamycin rash Dilaudid [Hydromorphone Hcl] Itching No rash Gabapentin Itching Keflex [Cephalexin] Urticarial rash Latex Rash Local contact rash Mupirocin Soreness at nose Neosporin Original [Neomycin-Bacitracin Zn-Polymyx] Other (Please comment) Swelling of hands- topical only Rocephin [Ceftriaxone] Rash Sulfa Antibiotics Hives Zofran Rash All over legs Current Outpatient Medications Medication Sig Dispense Refill [...] bedtime. For recurrent episode. 18 Tablet 11 Myrbetriq 50 MG Oral Tablet Extended Release 24 Hour (Mirabegron ER) Take 1 Tablet by mouth in the morning. 90 Tablet 3 Oxybutynin Chloride ER 10 MG Oral Tablet Extended Release 24 Hour (Ditropan XL) Take 1 Tablet by mouth in the morning. 90 Tablet 3 metFORMIN HCl ER 500 MG Oral Tablet [...] Release TAKE 1 CAPSULE EVERY DAY BEFORE [id number] Capsule 10 traZODone HCl 100 MG Oral Tablet (Desyrel) TAKE 1 TABLET AT BEDTIME 90 Tablet 3 Doxycycline Hyclate 100 MG Oral Capsule TAKE 1 CAPSULE IN THE MORNING AND 1 CAPSULE BEFORE BEDTIME UNTIL GONE 20 Capsule 3 busPIRone HCl 10 MG [...] Respimat 2.5 MCG/ACT Inhalation Aerosol Solution (Tiotropium [place] Monohydrate) INHALE 2 PUFFS EVERY MORNING 12 g 3 Current Facility-Administered Medications Medication Dose Route Frequency Provider Last Rate Last Admin Sodium Hyaluronate (Durolane) inj 60 mg 60 mg Intra-Articular Once Arben Soriano, Sodium Hyaluronate (Durolane) inj 60 mg 60 mg Intra-Articular Once Arben Soriano, DO ASSESSMENT: Primary osteoarthritis of both knees (Primary) - ARTHROCENT ASP &/OR INJ MAJOR JX/BURSA W/O US - Sodium Hyaluronate (Durolane) inj 60 mg - Sodium Hyaluronate (Durolane) inj 60 mg Follow Up: Return in about 2 months (around 05/15/2024). PLAN: Both injections were well tolerated today. I will see her back in 2 months for re-evaluation. Visco Injection Procedure Note: Bilateral Knee: Time out: Prior to injection, a time out was called to confirm the administration of appropriate medicine, patient name, procedure and confirm to the best of our ability and knowledge the presence of any necessary risks and benefits. Patient verbalizes understanding. Consent obtained. Sterile techinique applied. Skin sterilized with alcohol swab and ChloraPrep. Both knees were injected using 1.5 inch, 22 gauge needle. Injected with 3 mL Durolane 60 mg per 3 mL. Skin cleansed with alcohol and Band-Aid placed. Patient tolerated procedure with no significant bleeding or adverse reaction. Patient instructed to call or return to clinic for fever or warmth and redness at injection site for potential infection. Patient also advised as to potential for increased pain and redness at injection site which should be treated with ice and resolve within 24 hours. This chart was completed in part utilizing [employer] Speech Voice Recognition Software. Grammatical errors, random word insertions, pronoun errors, and incomplete sentences are an occasional consequence of this system due to software limitations, ambient noise, and hardware issues. Any formal questions or concerns about the content, text, or information contained within the body of this dictation should be directly addressed to the provider for clarification. Arben Soriano DO 03/15/2024 11:46 AM documented in this encounter Nursing Notes * Coby Russell LPN - 03/15/2024 11:18 AM EDT Chief Complaint Patient presents with Follow Up Durolane B/L knees, documented in this encounter Plan of Treatment Upcoming Encounters Date Type Department Care Team (Late st Contact Info) Description 03/19/2024 11:30 AM EDT Office Visit [facility] [address] [facility] [phone] Inez Carter CRNP [address] [facility] [place] [id number] 04/23/2024 2:30 PM EDT Office Visit Gastroenterology, [facility] [address] [facility] [place] [address] Salomón Carter CRNP [address] [facility] [address] [place] [address] 05/01/2024 2:55 PM EDT Office Visit Urogynecology [facility] [address] [place] [address] Vincent Segovia MD [address] [place] [address] Nurse Marci Bonds [facility] [place] [address] 05/02/2024 11:30 AM EDT Office Visit [place] [address] [place] [address] Lima Riggins [address] [place] [address] 05/17/2024 3:00 PM EDT Office Visit Orthopaedics [facility] [address] [facility] [place] [address] Arben Soriano DO [address] [place] [address] 08/06/2024 11:30 AM EDT Imaging Radiology [facility] 1st [facility] [address] [facility] [place] [address] 08/08/2024 3:40 PM EDT Office Visit Otolaryngology [facility] [address] [facility] [place] [address] Marie Flower PA-C [address] [place] [address] Scheduled Orders Name Type Priority Associated Diagnoses Orde r Schedule ARTHROCENT ASP &/OR INJ MAJOR JX/BURSA W/O US Procedures Routine Primary osteoarthritis of both knees Ordered: 03/15/2024 Scheduled Procedures Name Priority Associated Diagnoses Date/Ti [...] as of this encounter Visit Diagnoses Diagnosis Primary osteoarthritis of both knees- Primary Primary localized osteoarthrosis, lower leg documented in this encounter Care Teams Project Management Relationship Specialty Start Date End Date Lima Riggins DO [address] [place] [address] PCP - General Family Medicine 12/21/18 documented as of this encounter
--- OUTSIDE RECORDS SUMMARY | 2024-04-08 15:16 | External Medical Summary | Summary of Care ---
Author Name Unknown Organization [facility] Address [address] [facility] [place] [address] Phone [phone] Care Team Providers Care Motor Winder Name Role Phone Lima Riggins Primary Care Provider [phone] Encounter Details Date Type Department Care Team (Late st Contact Info) Description 03/23/2024 Result Scan Unspecified Department <No scans attached> Allergies Active Allergy Reactions Criticality Noted Date [...] as of this encounter (statuses as of 03/28/2024) Medications Medication Sig Dispensed Refills Start Date End Date Status POTASSIUM GLUCONATE 595 MG PO CAPS Take by mouth. Pt taking 99 mg twice daily 12/18/2012 Active NEBULIZER COMPRESSOR MISCIndications:Mod erate persistent asthma,Asthma flare Use as directed 1 Each 06/21/2013 Active NEBULIZER/TUBING/MO UTHPIECE KITIndications:Mode rate persistent [...] Respimat 2.5 MCG/ACT Inhalation Aerosol Solution (Tiotropium [place] Monohydrate) INHALE 2 PUFFS EVERY MORNING 12 g 3 03/14/2024 Active oxyBUTYnin Chloride ER 10 MG Oral Tablet Extended Release 24 Hour (Ditropan XL) Take 1 Tablet by mouth in the morning. 90 Tablet 3 03/21/2024 Active documented as of this encounter (statuses as of 03/28/2024) Active Problems Problem Noted Date Diagnosed Date [...] as of this encounter (statuses as of 03/28/2024) Resolved Problems Problem Noted Date Diagnosed Date [...] as of this encounter (statuses as of 03/28/2024) Immunizations Name Administration Dates Next Due Covid-19 Ad26, Single Dose (Lila/J&J) 04/03/2021 Hepatitis B, 20+ yrs 03/27/1998,03/29/1997,09/20 Pneumococcal Conjugate Vacci ne, 20-valent ([id number]) 05/17/2022 Pneumococcal Conjugate Vacci ne, 7 Valent [...] Description 03/30/2024 11:10 AM EDT Office [facility] [address] [facility] [phone] Lima Riggins DO [address] [facility] [address] 04/23/2024 2:30 PM EDT Office Visit Gastroenterology, [facility] [address] [facility] [place] [address] Salomón Carter CRNP [address] [place] [address] 05/01/2024 2:55 PM EDT Office Visit Urogynecology [facility] [address] [place] [address] Vincent Segovia MD [address] [place] [address] Nurse Marci Bonds [address] [place] [address] 05/02/2024 11:30 AM EDT Office Visit [facility] [address] [facility] [place] [phone] Lima Riggins, DO [address] [facility] [address] 05/17/2024 3:00 PM EDT Office Visit Orthopaedics [facility] [address] [facility] [place] [address] Arben Soriano, DO [address] [place] [address] 08/06/2024 11:30 AM EDT Imaging Radiology [facility]st [facility] [address] [facility] [place] [address] 08/08/2024 3:40 PM EDT Office Visit Otolaryngology [facility] [address] [facility] [place] [address] Marie Flower PA-C [address] [place] [address] 09/20/2024 3:00 PM EST Office Visit Hematology/Oncology [facility] [address] [place] [address] Inez Carter CRNP [address] [facility] [place] [address] Scheduled Procedures Name Priority Associated Diagnoses Date/Ti [...] Not on filedocumented as of this encounter Procedures Procedure Name Priority Date/Time Associated Diagnosis Comments OUTSIDE LAB RESULTS 03/23/2024 documented in this encounter Results * OUTSIDE LAB RESULTS (03/23/2024) 03/23/2024 No Physician Data Unknown LABORATORY documented in this encounter Care Teams Motor Winder Relationship Specialty Start Date End Date Lima Riggins DO [address] [place] [address] PCP - General Family Medicine 12/21/18 documented as of this encounter
--- OUTSIDE RECORDS SUMMARY | 2024-04-08 15:16 | External Medical Summary | Summary of Care ---
Author Name Unknown Organization [facility] [address] [place] [address] Phone [phone] Care Team Providers Care Shipping And Receiving Assistant Name Role Phone Lima Riggins Primary Care Provider [phone] Reason for Visit * Reason Onset Date Comments Medication Refill 03/29/2024 Encounter Details Date Type Department Care Team (Late st Contact Info) Description 03/29/2024 Refill Urogynecology [facility] [address] [place], [place] [id number] Vincent Segovia MD [address] [place] [address] Allergies Active Allergy Reactions Criticality Noted Date [...] as of this encounter (statuses as of 03/29/2024) Medications Medication Sig Dispensed Refills Start Date [...] Respimat 2.5 MCG/ACT Inhalation Aerosol Solution (Tiotropium [place] Monohydrate) INHALE 2 PUFFS EVERY MORNING 12 g 3 03/14/2024 Active oxyBUTYnin Chloride ER 10 MG Oral Tablet Extended Release 24 Hour (Ditropan XL) Take 1 Tablet by mouth in the morning. 90 Tablet 3 03/21/2024 Active Mirabegron ER 50 MG Oral Tablet Extended Release 24 Hour (Myrbetriq) Take 1 Tablet by mouth in the morning. 90 Tablet 3 03/29/2024 Active Myrbetriq 50 MG Oral Tablet Extended Release 24 Hour (Mirabegron ER) Take 1 Tablet by mouth in the morning. 90 Tablet 3 06/07/2023 4 Discontinu ed(Refill) documented as of this encounter (statuses as of 03/29/2024) Active Problems Problem Noted Date Diagnosed Date [...] as of this encounter (statuses as of 03/29/2024) Resolved Problems Problem Noted Date Diagnosed Date [...] as of this encounter (statuses as of 03/29/2024) Immunizations Name Administration Dates Next Due Covid-19 Ad26, Single Dose (Lila/J&J) 04/03/2021 Hepatitis B, 20+ yrs 03/27/1998,03/29/1997,09/20 Pneumococcal Conjugate Vacci ne, 20-valent ([id number]) 05/17/2022 Pneumococcal Conjugate Vacci ne, 7 Valent [...] encounter Miscellaneous Notes * Telephone Encounter - Vincent Segovia MD - 03/29/2024 12:56 PM EDTSigned Prescriptions: Disp Refills Mirabegron ER 50 MG Oral Tablet Extended R*90 Tab*3 Sig: Take 1 Tablet by mouth in the morning. Authorizing Provider: VINCENT SEGOVIA * Telephone Encounter - Naa Ruiz LPN - 03/29/2024 11:25 AM EDT Fax refill request received for Myrbetriq 50mg. Last seen 02/03/24 with future 05/01/24. Order pended for review. documented in this encounter Plan of Treatment Upcoming Encounters Date Type Department Care Team (Late st Contact Info) Description 03/30/2024 11:10 AM EDT Office Visit [facility] [address] [place] [phone] Lima Riggins, DO [address] [place] [address] 04/23/2024 2:30 PM EDT Office Visit Gastroenterology, [facility] [address] [place] [address] Salomón Carter CRNP [address] [place] [address] 05/01/2024 2:55 PM EDT Office Visit Urogynecology [facility] [address] [place] [address] Vincent Segovia MD [address] [place] [address] BondsNurse Marci adamson [facility] [address] [place] [address] 05/02/2024 11:30 AM EDT Office Visit Family [facility] [address] [place] [facility] [address] Lima Riggins, DO [address] [place] [facility] [place] [address] 05/17/2024 3:00 PM EDT Office Visit Orthopaedics [facility] [address] [place] [address] Arben Soriano DO [address] [place] [address] 08/06/2024 11:30 AM EDT Imaging Radiology [address] [address] 08/08/2024 3:40 PM EDT Office Visit Otolaryngology [facility] [address] [place] [address] Marie Flower PA-C [address] [place] [address] 09/20/2024 3:00 PM EST Office Visit Hematology/Oncology [facility] [place] [address] [place] [address] Inez Carter CRNP [address] [facility] [place] [address] Scheduled Procedures Name Priority Associated Diagnoses [...] filedocumented as of this encounter Care Teams Shipping And Receiving Assistant Relationship Specialty Start Date End Date Lima Riggins DO [address] [place] [address] PCP - General Family Medicine 12/21/18 documented as of this encounter
--- OUTSIDE RECORDS SUMMARY | 2024-04-08 15:16 | External Medical Summary | Summary of Care ---
Author Name Unknown Organization [facility] Address [address] [facility] [address] Phone [phone] Care Team Providers Care Sheeter Waxer Operator Name Role Phone Lima Riggins Primary Care Provider [phone] Reason for Visit * Reason Comments Follow Up 3 month follow up Encounter Details Date Type Department Care Team (Late st Contact Info) Description 03/19/2024 11:30 AM EDT Office Visit Hematology/Oncology [facility] [address] [facility] [place] [address] Inez Carter CRNP [address] [place] [address] Thrombocytosis*; Iron deficiency anemia, unspecified iron deficiency anemia [...] as of this encounter (statuses as of 03/19/2024) Medications Medication Sig Dispensed Refills Start Date [...] Respimat 2.5 MCG/ACT Inhalation Aerosol Solution (Tiotropium [place] Monohydrate) INHALE 2 PUFFS EVERY MORNING 12 g 3 03/14/2024 Active documented as of this encounter (statuses as of 03/19/2024) Active Problems Problem Noted Date Diagnosed Date [...] as of this encounter (statuses as of 03/19/2024) Resolved Problems Problem Noted Date Diagnosed Date [...] kg/sq m 01/10/2017 08/04/2017 Overview: bmi= 40.52 3/13/17 C. difficile colitis 07/23/2016 017 Debility 03/08/2016 [...] as of this encounter (statuses as of 03/19/2024) Immunizations Name Administration Dates Next Due Covid-19 Ad26, Single Dose (Lila/J&J) 04/03/2021 Hepatitis B, 20+ yrs 03/27/1998,03/29/1997,09/20 Pneumococcal Conjugate Vacci ne, 20-valent ([id number]) 05/17/2022 Pneumococcal Conjugate Vacci ne, 7 Valent [...] Sign Reading Time Taken Comments Blood Pressure 140/85 03/19/2024 11:35 AM EDT Pulse 101 03/19/2024 11:35 AM EDT Temperature 36.3 C (97.3 F) 03/19/2024 11:35 AM E DT Respiratory Rate - - Oxygen Saturation 98% 03/19/2024 11:35 AM EDT Inhaled Oxygen Concentration - - Weight 90.4 kg (199 lb 3.2 oz) 03/19/2024 11:35 AM EDT Height - - Body Mass Index 37.64 03/15/2024 11:17 AM EDT documented in this encounter Progress Notes * Inez Carter CRNP - 03/19/2024 11:30 AM EDT Hematology/Oncology Outpatient Clinic note [place] [address] Name: Christina Monge Date: 03/19/2024 CHIEF COMPLAINT: Christina Monge is a 63 year old female patient of CHRISTINE Coronel here today for f/u visit today. From Patient chart confirmed with patient. HEMATOLOGY/ONCOLOGY DIAGNOSIS: Thrombocytosis Iron deficiency CURRENT TREATMENT: Ferrous sulfate one tablet daily HISTORY OF PRESENT ILLNESS: Component Latest Ref Rng 08/06/2020 11/17/2020 10/16/2021 07/21/2023 12/15/2023 WBC 4.00 - 10.80 K/uL 9.36 9.07 8.35 10.18 12.24 (H) RBC 3.85 - 5.15 M/uL 4.99 4.75 4.69 4.57 4.54 HGB 12.0 - 15.3 g/dL 12.5 12.3 13.5 13.0 13.2 HCT 36.0 - 45.2 % 38.6 39.1 42.1 40.7 40.2 MCV 81.5 - 97.5 fL 77.4 (L) 82.3 89.8 89.1 88.5 MCH 27.0 - 34.0 pg 25.1 (L) 25.9 (L) 28.8 28.4 29.1 MCHC 32.0 - 36.0 g/dL 32.4 31.5 (L) 32.1 31.9 32.8 RDW 11.5 - 15.5 % 17.7 (H) 15.9 (H) 13.2 14.1 14.2 PLT 140 - 400 K/uL 509 (H) 432 (H) 452 (H) 426 (H) 415 (H) MPV 6.6 - 11.1 fL 10.2 10.3 9.8 9.8 9.9 nRBCs <=0 /100 WBCs 0 0 0 ASCVD 10-Year Risk Score The 10-year ASCVD risk score (Kb MILLER, et al., 2019) is: 13.6% Values used to calculate the score: Age: 63 years Sex: Female Is Non- : No Diabetic: Yes Tobacco smoker: No Systolic Blood Pressure: 142 mmHg Is BP treated: Yes HDL Cholesterol: 59 mg/dL Total Cholesterol: 137 mg/dL Patient with PMH of asthma, depression, DM type II, DLD, GERD, OA and fatty liver disease. Chart review reveals platelet count mildly elevated for at least the last 10 years. Inflammatory markers not elevated Was taking prednisone 40 mg daily for five days just prior to blood work being completed. Was having flu like symptoms. These are now resolved. Does continue to have headaches. Describes them as sharp and stabbing. Across her sinuses and in her temples. This is occurring every day. Last for about 1/2 the day. Pain level is approximately an 8 when this happens. Tylenol does decrease the pain and makes them tolerable. Denies any vision changes. Denies nausea or vomiting. Seem to come on in the morning and improve as the day goes on. Noted thrombocytosis improved with starting oral iron supplement once daily. Takes it at noon. Doesnot take with vitamin c. Has been on this since 2019. Also takes PPI once daily and Pepcid once daily. Follows with GI for gastroparesis and IBS. Denies melena or hematochezia. Tolerates oral iron supplement well. Also takes a vitamin b12 supplement daily. Bowels move normally with Colestid to control diarrhea. Next due for colonoscopy in 2024. Last EGD May 2022. Denies drenching night sweats or unexplained weight loss. Does report significant fatigue for the last six months or so. Patient is a nonsmoker. Quit in 1995. Patient drinks alcohol very rarely. Does have arthritis in her left foot. Denies erythromelalgia or pruritus. CT A/P in 2021 shows unremarkable spleen. Patient has never had a blood clot. Cannot take aspirin d/t nosebleeds. HISTORY OF PRESENT ILLNESS: Christina Monge is a 63 year old female with a history as outlined above. Currently here for f/u visit today. Patient had a bad nose bleed this morning. Severity waxes and wanes. Lately about once a week. Follows with ENT. Next appointment in July. Wondering if she needs another cauterization. Recently had gel injection in her left knee. Continues on oral iron once a day. Tolerating well. Past Medical History: Diagnosis Date Allergic rhinitis all year round Asthma, mild persistent Depressive disorder, not elsewhere classified 1977 possible suicide attempt with pills Diverticulosis of colon 06/11/10 DM type 2, goal A1c below 7 DM type 2, goal A1c below 7 Dyslipidemia, goal LDL below 70 12/09 Esophageal reflux Herpes simplex type 2 infection History of Clostridium difficile colitis 07/2016 Migraine Osteoarthritis of foot joint Steatohepatitis, non-alcoholic Past Surgical History: Procedure Laterality Date COLONOSCOPY 10/31/2003 10 years COLONOSCOPY, DIAGNOSTIC (RECTUM) 06/11/2010 diverticulosis, REPEAT IN 10 YEARS COLONOSCOPY, DIAGNOSTIC (RECTUM) 02/17/2015 hyperplastic polyp, diverticulosis, repeat 10 yrs CYSTOSCOPY 11/06/2013 DILATION AND CURETTAGE (D&C) 10/31/1979 D&C EGD, FLEXIBLE, DIAGNOSTIC 10/31/2003 charlie EGD, FLEXIBLE, DIAGNOSTIC 11/19/2015 normal bx/ESOPHAGOGASTRODUODENOSCOPY (EGD), FLEXIBLE, TRANSORAL, DIAGNOSTIC performed by Cas Watson DO at ENDOSCOPY [facility] EGD, FLEXIBLE, DIAGNOSTIC 06/24/2022 normal bx / [facility] EGD, FLEXIBLE, W/BIOPSY 01/16/2009 normal EGD, W/ENDOSCOPIC US 08/19/2011 benign appearing lymph node, repeat CT Scan in 6 months EGD, W/ENDOSCOPIC US 11/07/2014 mild gastritis, fatty liver/ESOPHAGOGASTRODUODENOSCOPY (EGD), FLEXIBLE, TRANSORAL, ENDOSCOPIC ULTRASOUND performed by Cas Watson DO at ENDOSCOPY [facility] LIGATE/CUT OVIDUCT(S) 10/31/1980 Tubal Ligation NASAL/SINUS ENDOSCOPY, SURGICAL Right 03/03/2022 NASAL SINUS ENDOSCOPY CONTROL NASAL SINUS HEMORRHAGE performed by Nata Villafana MD at OR [facility] RELIEVE PRESSURE ON FOOT/TOE NERVE 10/31/2000 Dr Velasco- left foot REMOVE TONSILS & ADENOIDS, AGE 12+ 10/31/1973 Tonsillectomy/Adenoids,12+ Y/O TOTAL ABD HYSTERECTOMY W/WO REMOVAL OF TUBE(S) 10/31/2007 Dr Tanner[place] w/ Bilateral Salpingo-Oophorectomy UPPER GI ENDOSCOPY 02/01/2014 Social History Socioeconomic History Marital status: Spouse name: Not on file Number of children: 3 Years of education: Not on file Highest education level: Not on file Occupational History 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: [employer] Employer: [employer] Tobacco Use Smoking status: Former Current packs/day: 0.00 Types: Cigarettes Start date: 09/30/1965 Quit date: 09/30/1990 Years since quittin.4 Passive exposure: Past Smokeless tobacco: Never Vaping [...] kids and dogs diet: No junk, portions congregation/rastafari: sabianism marital status: 2002 children: 3 gc: 7 [...] on file Housing Stability: Not on file Review of patient's allergies indicates: Allergen Reactions [...] Release TAKE 1 CAPSULE EVERY DAY BEFORE [id number] Capsule 10 traZODone HCl 100 MG Oral [...] Respimat 2.5 MCG/ACT Inhalation Aerosol Solution (Tiotropium Aurora Monohydrate) INHALE 2 PUFFS EVERY MORNING 12 g 3 No current facility-administered medications for this visit. REVIEW OF SYSTEMS: See HPI - otherwise negative OBJECTIVE: Filed Vitals: 03/19/24 1135 BP: 140/85 Pulse: 101 Temp: 36.3 C (97.3 F) TempSrc: Tympanic SpO2: 98% Weight: 90.4 kg (199 lb 3.2 oz) Wt Readings from Last 5 Encounters: 03/19/24 90.4 kg (199 lb 3.2 oz) 03/15/24 93.6 kg (206 lb 5.6 oz) 02/27/24 93.6 kg (206 lb 6.4 oz) 01/06/24 93.2 kg (205 lb 6.4 oz) 12/26/23 93.2 kg (205 lb 8 oz) PHYSICAL EXAM: General Appearance: Normal - Healthy appearing patient in no acute distress Lungs/Thorax: Normal respiratory effort Extremities: No edema Neurologic: Normal - Grossly intact LABS: Results for orders placed or performed in visit on 03/12/24 COMPREHENSIVE METABOLIC PANEL Result Value Ref Range BUN 9 6 - 20 mg/dL Creatinine 0.6 0.5 - 1.0 mg/dL Estimated Glomerular Filtration Rate >90 >=60 mL/min Sodium 137 135 - 146 mmol/L Potassium 4.1 3.5 - 5.1 mmol/L Chloride 101 98 - 107 mmol/L CO2 22 22 - 32 mmol/L Anion Gap 14 7 - 15 mmol/L Glucose 194 (H) 70 - 120 mg/dL Albumin 4.2 3.8 - 5.0 g/dL AST 37 (H) 10 - 35 U/L Alkaline Phosphatase 114 35 - 130 U/L Bilirubin, Total 0.4 <=1.2 mg/dL Calcium 9.6 8.4 - 10.2 mg/dL Protein 6.3 6.0 - 8.3 g/dL ALT 60 (H) 10 - 35 U/L FERRITIN Result Value Ref Range Ferritin 59 13 - 150 ng/mL IRON SCREEN, INCLUDING TIBC Result Value Ref Range Iron 59 33 - 151 ug/dL Iron Binding Capacity 359 250 - 425 ug/dL Transferrin Saturation Percent 16 15 - 55 % CBC Result Value Ref Range WBC 6.50 4.00 - 10.80 K/uL RBC 4.37 3.85 - 5.15 M/uL HGB 12.6 12.0 - 15.3 g/dL HCT 36.8 36.0 - 45.2 % MCV 84.2 81.5 - 97.5 fL MCH 28.8 27.0 - 34.0 pg MCHC 34.2 32.0 - 36.0 g/dL RDW 13.7 11.5 - 15.5 % PLT 405 (H) 140 - 400 K/uL MPV 10.1 6.6 - 11.1 fL nRBCs 0 <=0 /100 WBCs DIFFERENTIAL, AUTOMATED Result Value Ref Range WBC 6.50 4.00 - 10.80 K/uL Neutrophils % 51.8 40.0 - 75.0 % Lymphocytes % 32.5 18.0 - 42.0 % Monocytes % 7.8 1.0 - 11.0 % Eosinophils % 7.1 (H) 0.0 - 6.0 % Basophils % 0.6 0.0 - 2.0 % Immature Granulocytes % 0.2 0.0 - 2.0 % Absolute Neutrophils 3.37 1.80 - 7.70 K/uL Absolute Lymphocytes 2.11 1.00 - 4.80 K/ul Absolute Monocytes 0.51 0.00 - 1.10 K/uL Absolute Eosinophils 0.46 0.00 - 0.70 K/uL Absolute Basophils 0.04 0.00 - 0.20 K/uL Absolute Immature Granulocytes 0.01 0.00 - 0.20 K/uL *Note: Due to a large number of results and/or encounters for the requested time period, some results have not been displayed. A complete set of results can be found in Results Review. IMPRESSION/PLAN: Thrombocytosis Iron deficiency Chart review reveals platelet count mildly elevated in the 400-500K range for at least the last 10 years. Noted inflammatory markers not elevated. Noted to have a mild iron deficiency. Started on oral iron supplement one tablet daily with improvement. Tolerating well. Next due for colonoscopy in 2024. Last EGD May 2022. Lab results 03/12/24 reviewed: Iron studies improved with ferritin 59 Platelet count remains mildly elevated but improved at 405K No further work up indicated at this time. Continue oral iron supplement one tablet daily. RTC in six months with provider with cbc/diff, cmp, iron screen and ferritin CHRISTINE Larson documented in this encounter Nursing Notes * Christine Vega MED ASSIST - 03/19/2024 11:36 AM EDT Patient identifed by name and birthdate Do you have any concerns about pain management for today's visit? Yes. Patient instructed to discuss pain concerns with provider during the visit today Living Will or Advance Directive for Health Care as noted on the problem list. [facility] is a way you can talk to your provider on line through e-mail. Would you like to sign up? I can activate it for you? NO Filed Vitals: 03/19/24 1135 BP: 140/85 Pulse: 101 Temp: 36.3 C (97.3 F) TempSrc: Tympanic SpO2: 98% Weight: 90.4 kg (199 lb 3.2 oz) Patient was instructed to not get up on the exam table/exam chair until directed and assisted by their provider; patient is to remain seated in the chair/ wheelchair/ exam table/ exam chair for fall prevention and safety reasons. Patient is aware to have assistance to step down off exam table/exam chair with personnel. Patient voiced full comprehension of instructions. documented in this encounter Plan of Treatment Upcoming Encounters Date Type Department Care Team (Late st Contact Info) Description 04/23/2024 2:30 PM EDT Office Visit Gastroenterology, [facility] [address] [place] [address] Salomón Carter CRNP [address] [place] [address] 05/01/2024 2:55 PM EDT Office Visit Urogynecology [facility] [address] [place] [address] Vincent Segovia MD [address] [place] [address] BondsNurse Marci adamson [facility] [address] [place] [address] 05/02/2024 11:30 AM EDT Office Visit [place] [address] [place] [address] Lima Riggins [address] [place] [address] 05/17/2024 3:00 PM EDT Office Visit Orthopaedics [facility] [address] [facility] [place] [address] Arben Soriano, DO [address] [place] [address] 08/06/2024 11:30 AM EDT Imaging Radiology [facility] [facility] [address] [place] [address] 08/08/2024 3:40 PM EDT Office Visit Otolaryngology [facility] [address] [facility] [place] [address] Marie Flower PA-C [address] [place] [address] 09/20/2024 3:00 PM EST Office Visit Hematology/Oncology [employer] [address] [facility] [place] [address] Inez Carter CRNP [address] [place] [address] Scheduled Orders Name Type Priority Associated Diagnoses Orde r Schedule CBC WITH WBC DIFFERENTIAL Lab STAT Thrombocytosis Iron deficiency anemia, unspecified iron deficiency anemia type Expected: 09/19/2024 (Approximate), Expires: 03/19/2025 COMPREHENSIVE METABOLIC PANEL Lab STAT Thrombocytosis Iron deficiency anemia, unspecified iron deficiency anemia type Expected: 09/19/2024 (Approximate), Expires: 03/19/2025 IRON SCREEN, INCLUDING TIBC Lab STAT Thrombocytosis Iron deficiency anemia, unspecified iron deficiency anemia type Expected: 09/19/2024 (Approximate), Expires: 03/19/2025 FERRITIN Lab STAT Thrombocytosis Iron deficiency anemia, unspecified iron deficiency anemia type Expected: 09/19/2024 (Approximate), Expires: 03/19/2025 Scheduled Procedures Name Priority Associated Diagnoses Date/Ti [...] as of this encounter Visit Diagnoses Diagnosis Thrombocytosis- Primary Essential thrombocythemia Iron deficiency anemia, unspecified iron deficiency anemia type documented in this encounter Care Teams Sheeter Waxer Operator Relationship Specialty Start Date End Date Lima Riggins DO [address] [facility] [address] PCP - General Family Medicine 12/21/18 documented as of this encounter
--- OUTSIDE RECORDS SUMMARY | 2024-04-08 15:16 | External Medical Summary | Summary of Care ---
Author Name Unknown Organization [facility] Address [address] [facility] [place] [address] Phone [phone] Care Team Providers Care Engineer Fishing Vessel Name Role Phone Gilson Lima Joe DO Primary Care Provider [phone] Reason for Visit * Reason Comments Follow Up Durolane B/L knees, * Precert (Within 10 days (routine)) - Authorized Specialty Diagnoses / Procedures Referred By Juan campbell Referred To Contact Diagnoses Bilateral primary osteoarthritis of knee Procedures [place] INJ, DUROLANE 1 MG Arben Soriano DO [address] [place] [address] Arben Soriano DO [address] [place] [address] Referral ID Status Reason Start Date Expiration Date V isits Requested Visits Authorized [id number] Authorized Precert 02/06/2024 02/05/2025 999 [id number] Encounter Details Date Type Department Care Team (Latest Contact Info) Description 03/15/2024 11:15 AM EDT Office Visit Orthopaedics [facility] [address] [place] [address] Arben Soriano DO [address] [place] [address] Primary osteoarthritis of both knees* Allergies Active [...] Respimat 2.5 MCG/ACT Inhalation Aerosol Solution (Tiotropium [place] Monohydrate) INHALE 2 PUFFS EVERY MORNING 12 g 3 03/14/2024 Active Hospital, Clinic, or Other Facility Administered Medication Ordered Dose Route Frequency Start Date End Date Status Sodium Hyaluronate (Durolane) inj 60 mgIndications:Primary osteoarthritis of both knees 60 mg IX ONCE 03/15/2024 03/15/2024 Ended Sodium Hyaluronate (Durolane) inj 60 mgIndications:Primary osteoarthritis of both knees 60 mg IX ONCE 03/15/2024 03/15/2024 Ended documented as of this encounter (statuses as [...] yrs 03/27/1998,03/29/1997,09/20 Pneumococcal Conjugate Vacci ne, 20-valent ([id number]) 05/17/2022 Pneumococcal Conjugate Vacci ne, 7 Valent [...] Release TAKE 1 CAPSULE EVERY DAY BEFORE [id number] Capsule 10 traZODone HCl 100 MG Oral [...] Respimat 2.5 MCG/ACT Inhalation Aerosol Solution (Tiotropium [place] Monohydrate) INHALE 2 PUFFS EVERY MORNING 12 [...] This chart was completed in part utilizing [employer] Speech Voice Recognition Software. Grammatical errors, random [...] 03/19/2024 11:30 AM EDT Office Visit [facility]ematology/On[facility] [address] [facility] [id number] Inez Carter CRNP [address] [facility] [place] [id number] 04/23/2024 2:30 PM EDT Office Visit Gastroenterology, [facility] [address] [facility] [place] [address] Salomón Carter CRNP [address] [facility] [address] [place] [address] 05/01/2024 2:55 PM EDT Office Visit Urogynecology [facility] [address] [place] [address] Vincent Segovia MD [address] [place] [address] Nurse Marci Bonds [facility] [place] [address] 05/02/2024 11:30 AM EDT Office Visit [place] [address] [place] [address] Lima Riggins [address] [place] [address] 05/17/2024 3:00 PM EDT Office Visit Orthopaedics [facility] [address] [facility] [place] [address] Arben Soriano DO [address] [place] [address] 08/06/2024 11:30 AM EDT Imaging Radiology [facility]st [facility] [address] [facility] [place] [address] 08/08/2024 3:40 PM EDT Office Visit Otolaryngology [facility] [address] [facility] [place] [address] Marie Flower PA-C [address] [place] [address] Scheduled Orders Name Type Priority Associated Diagnoses [...] osteoarthrosis, lower leg documented in this encounter Administered Medications Inactive Administered Medications - up to 3 most recent administrations Medication Order MAR Action Action Date Dose Rate Site Sodium Hyaluronate (Durolane) inj 60 mg 60 mg, Intra-Articular, ONCE, On Courtney 03/15/24 at 1230, For 1 dose Given 03/15/2024 3:10 PM EDT 60 mg Knee Right Sodium Hyaluronate (Durolane) inj 60 mg 60 mg, Intra-Articular, ONCE, On Courtney 03/15/24 at 1230, For 1 dose Given 03/15/2024 3:10 PM EDT 60 mg Knee Left documented in this encounter Care Teams Engineer Fishing Vessel Relationship Specialty Start Date End Date Lima Riggins DO [address] [place] [address] PCP - General Family Medicine 12/21/18 documented as of this encounter
--- OUTSIDE RECORDS SUMMARY | 2024-04-08 15:16 | External Medical Summary | Summary of Care ---
Author Name Unknown Organization [facility] Address [address] [facility] [place] [address] Phone [phone] Care Team Providers Care Porter Head Name Role Phone Yamilka Riggins Primary Care Provider + [phone] Reason for Visit * Reason Comments eRx-Medication Refill Encounter Details Date Type Department Care Team (Late st Contact Info) Description 03/14/2024 Refill [facility] [address] [place] [address] Mae Segovia MD [address] [place] [address] Allergies Active Allergy Reactions Criticality [...] as of this encounter (statuses as of 03/14/2024) Medications Medication Sig Dispensed Refills Start Date End Date Status POTASSIUM GLUCONATE 595 MG PO CAPS Take by mouth. Pt taking 99 mg twice daily 0 3 Active NEBULIZER COMPRESSOR MISCIndications:Mo derate persistent [...] glucose twice daily; E11.9 1 Kit 0 1 Active Cinnamon Plus Chromium 200-1000 MCG-MG Oral Capsule (Chromium-Cinnamon ) Take by mouth . 0 Active Calcium [...] recurrent episode. 18 Tablet 11 3 Active Myrbetriq 50 MG Oral Tablet Extended Release 24 Hour (Mirabegron ER) Take 1 Tablet by mouth in the morning. 90 Tablet 3 3 Active Oxybutynin Chloride ER 10 MG Oral Tablet Extended Release 24 Hour (Ditropan XL) Take 1 Tablet by mouth in the morning. 90 Tablet 3 3 Active metFORMIN HCl ER 500 MG Oral Tablet Extended Release 24 Hour (Glucophage XR) TAKE 2 TABLETS (1,000 MG) IN THE MORNING 180 Tablet 2 3 Active Famotidine 40 MG Oral Tablet (Pepcid) Take 1 Tablet by mouth at bedtime. 90 Tablet 3 3 Active Ketoconazole 2 % External Shampoo [...] UNTIL GONE 20 Capsule 3 3 Active busPIRone HCl 10 MG Oral Tablet [...] 3 mL before bedtime. 100 mL 0 4 Active Ipratropium-Albute rol 0.5-2.5 (3) MG/3ML Inhalation Solution (Duoneb) Inhale 3 mL via nebulizer in the morning and 3 mL at noon and 3 mL in the evening and 3 mL before bedtime. 100 mL 3 4 Active Diclofenac Sodium 75 MG Oral Tablet Delayed Release (Voltaren) Take 1 Tablet by mouth 2 times a day as needed. 0 3 Active Oxymetazoline HCl 0.05 % Nasal Solution Administer 2 Sprays into each nostril 2 times a day as needed for Congestion (for congestion). Do not use for more than three days. 20 mL 0 4 Active Additional Information Patient not taking.Reported [...] Respimat 2.5 MCG/ACT Inhalation Aerosol Solution (Tiotropium [place] Monohydrate) INHALE 2 PUFFS EVERY MORNING 12 g 3 4 Active Spiriva Respimat 2.5 MCG/ACT Inhalation Aerosol Solution (Tiotropium [place] Monohydrate) Inhale 2 Puffs by mouth in the morning. 12 g 3 3 03/14/20 24 Discontinued documented as of this encounter (statuses as of 03/14/2024) Active Problems Problem Noted Date Diagnosed Date [...] as of this encounter (statuses as of 03/14/2024) Resolved Problems Problem Noted Date Diagnosed Date [...] as of this encounter (statuses as of 03/14/2024) Immunizations Name Administration Dates Next Due Covid-19 Ad26, Single Dose (Lila/J&CELtrak) 04/03/2021 Hepatitis B, 20+ yrs 03/27/1998,03/29/1997,09/20 Pneumococcal Conjugate Vacci ne, 20-valent ([id number]) 05/17/2022 Pneumococcal Conjugate Vacci ne, 7 Valent [...] encounter Miscellaneous Notes * Telephone Encounter - Mariya Gold RPh - 03/14/2024 7:21 PM EDT Signed Prescriptions: Disp Refills Spiriva Respimat 2.5 MCG/ACT Inhalation Ae*12 g 3 Sig: INHALE 2 PUFFS EVERY MORNINGAuthorizing Provider: YAMILKA RIGGINS User: MARIYA GOLD---- documented in this encounter Plan of Treatment Upcoming Encounters Date Type Department Care Team (Late st Contact Info) Description 03/15/2024 11:15 AM EDT Office Visit Orth[facility]ed[facility] [address] [facility] [place] [address] Arben Soriano DO [address] [place] [address] 03/19/2024 11:30 AM EDT Office Visit [facility]ematology[facility] [place] [address] [place] [phone] Inez Carter CRNP [address] [place] [address] 04/23/2024 2:30 PM EDT Office Visit Gastroenterology, [facility] [address] [place] [address] Salomón Carter CRNP [address] [place] [address] 05/01/2024 2:55 PM EDT Office Visit Urogynecology [facility] [address] [place] [address] Vincent Segovai MD [address] [place] [address] Nurse Marci Bonds [facility] [address] [place] [address] 05/02/2024 11:30 AM EDT Office Visit [facility] [address] [place] [phone] Yamilka Riggins, [address] [place] [address] 08/06/2024 11:30 AM EDT Imaging Radiology [facility] [facility] [address] [place] [address] 08/08/2024 3:40 PM EDT Office Visit Otolaryngology [facility] [address] [place] [address] Marie Flower PA-C [address] [place] [address] Scheduled Procedures Name Priority Associated Diagnoses Date/Ti [...] filedocumented as of this encounter Care Teams Porter Head Relationship Specialty Start Date End Date Yamilka Riggins DO [address] [place] [address] PCP - General Family Medicine 12/21/18 documented as of this encounter
--- OUTSIDE RECORDS SUMMARY | 2024-04-08 15:17 | External Medical Summary ---
Author Name Unknown Address Unknown Organization [id number]:[facility] [place] [address] [place] [address] Laboratory Report Ordering Provider Test Date Status CHERYL NICHOLAS 03/12/2024 10:32:50 Final Observation Date Value Abnormality Reference (Units ) Status BUN 03/12/2024 10:32:50 9 6-20 (mg/dL) Final Creatinine 03/12/2024 10:32:50 0.6 0.5-1.0 (mg/dL) Final Glomerular filtration rate/1.73 sq M.predicted [Volume Rate/Area] in Serum, Plasma or Blood by Creatinine-based formula (CKD-EPI) 03/12/2024 10:32:50 >90 >=60 (mL/min) Final eGFR is calculated based on the CKD-EPI 2020 equation Sodium 03/12/2024 10:32:50 137 135-146 (m mol/L) Final Potassium 03/12/2024 10:32:50 4.1 3.5-5.1 (m mol/L) Final Cl 03/12/2024 10:32:50 101 98-107 (mm ol/L) Final CO2 03/12/2024 10:32:50 22 22-32 (mmo l/L) Final Anion gap 03/12/2024 10:32:50 14 7-15 (mmol /L) Final Glucose 03/12/2024 10:32:50 194 Above high normal 70 -120 (mg/dL) Final Albumin 03/12/2024 10:32:50 4.2 3.8-5.0 (g /dL) Final AST (Aspartate aminotransferase) 03/12/2024 10:32:50 37 Above high normal 10-35 (U/L) Final Alk Phos 03/12/2024 10:32:50 114 35-130 (U/ L) Final Bilirubin, Total 03/12/2024 10:32:50 0.4 <=1 .2 (mg/dL) Final Calcium 03/12/2024 10:32:50 9.6 8.4-10.2 ( mg/dL) Final Protein 03/12/2024 10:32:50 6.3 6.0-8.3 (g /dL) Final ALT (Alanine aminotransferase) 03/12/2024 10:32:50 60 Above high normal 10-35 (U/L) Final Performing Location [facility] [place] [facility] [address] [facility] [address]
--- OUTSIDE RECORDS SUMMARY | 2024-04-08 15:17 | External Medical Summary ---
Author Name Unknown Address Unknown Organization [id number][place] [place] [address] [facility] [address] [facility] [address] Laboratory Report Ordering Provider Test Date Status CHERYL NICHOLAS 03/12/2024 10:32:50 Final Observation Date Value Abnormality Reference (Units ) Status WBC, Total 03/12/2024 10:32:50 6.50 4.00-10.80 (K/uL) Final RBC 03/12/2024 10:32:50 4.37 3.85-5.15 (M/uL) Final Hemoglobin 03/12/2024 10:32:50 12.6 12.0-15.3 (g/dL) Final HCT 03/12/2024 10:32:50 36.8 36.0-45.2 (%) Final MCV 03/12/2024 10:32:50 84.2 81.5-97.5 (fL) Final MCH 03/12/2024 10:32:50 28.8 27.0-34.0 (pg) Final MCHC 03/12/2024 10:32:50 34.2 32.0-36.0 (g/dL) Final RDW 03/12/2024 10:32:50 13.7 11.5-15.5 (%) Final Platelets 03/12/2024 10:32:50 405 Above high normal 140-400 (K/uL) Final MPV 03/12/2024 10:32:50 10.1 6.6-11.1 (fL) Final Nucleated erythrocytes/100 leukocytes [Ratio] in Blood by Automated count 03/12/2024 10:32:50 0 <=0 (/100 WBCs) Final Performing Location [facility] [place] [address] [place] [address]
--- OUTSIDE RECORDS SUMMARY | 2024-04-08 15:17 | External Medical Summary ---
Author Name Unknown Address Unknown Organization [id number]:[facility] [place] - [address] [place] [address] Laboratory Report Ordering Provider Test Date Status CHERYL NICHOLAS 03/12/2024 10:32:50 Final Observation Date Value Abnormality Reference (Units ) Status Iron 03/12/2024 10:32:50 59 33-151 (ug /dL) Final Iron-binding capacity 03/12/2024 10:32:50 359 250-425 (ug/dL) Final Transferrin Sat % 03/12/2024 10:32:50 16 15 -55 (%) Final Performing Location [facility] [place] - [address] [place] [address]
--- OUTSIDE RECORDS SUMMARY | 2024-04-08 15:17 | External Medical Summary ---
Author Name Unknown Address Unknown Organization K01[place] [place] [address] [place] [address] Laboratory Report Ordering Provider Test Date Status CHERYL NICHOLAS 03/12/2024 10:32:50 Final Observation Date Value Abnormality Reference (Units ) Status Ferritin 03/12/2024 10:32:50 59 13-150 (ng /mL) Final Postmenopausal women have hi gher ferritin levels than pre-menopausal women. The above reference interval is based on pre-menopausal women. Performing Location LABORATORY [facility] - [address] [place] [address]
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
[2024-04-08] MEDS: MoRPHine SULFATE 4 MG/ML 1 ML CARP\\VIAL IV STA ×2 (15:57→19:36)
[2024-04-08] MEDS: SODIUM CHLORIDE 0.9% 500 ML IV ONE (15:57)
[2024-04-08] MEDS: KETOROLAC TROMETHAMINE 15 MG/ML VIAL IV ONE (15:59)
[2024-04-08] MEDS: PROMETHAZINE 6.25 MG/50.25 ML BAG IV STA (15:59)
[2024-04-08 16:03] LABS: Basophils # (auto) 0.04 K/uL (0.00-0.20); Basophils % (auto) 0.5 %; Eosinophils # (auto) 0.36 K/uL (0.00-0.50); Eosinophils % (auto) 4.2 %; Hematocrit (blood only) 37.3 % (37.0-47.0); Hemoglobin 12.4 g/dl (12.0-16.0); Immature Granulocytes # (auto) 0.02 K/uL (0.01-0.20); Immature Granulocytes % (auto) 0.2 %; Lymphocytes # (auto) 3.51 K/uL (1.20-3.40); Lymphocytes % (auto) 40.7 %; Mean Corpuscular Hemoglobin 28.1 pg (25.0-34.0); Mean Corpuscular Hgb Conc 33.2 g/dL (32.0-36.0); Mean Corpuscular Volume 84.6 fL (80.0-100.0); Mean Platelet Volume 9.6 fL (9.4-12.4); Monocytes # (auto) 0.83 K/uL (0.11-0.59); Monocytes % (auto) 9.6 %; Neutrophils # (auto) 3.86 K/uL (1.40-6.50); Neutrophils % (auto) 44.8 %; Platelet Count 362 K/uL (130-400); RDW Coefficient of Variation 13.7 % (11.5-14.5); RDW Standard Deviation 42.3 fL (36.4-46.3); Red Blood Count 4.41 M/uL (4.20-5.40); White Blood Count 8.62 K/ul (4.8-10.8)
--- NOTE | 2024-04-08 16:04 | XRay Report ---
SINGLE VIEW CHEST CLINICAL HISTORY: Generalized abdominal pain. FINDINGS: An AP, portable, upright chest radiograph is compared to study dated 03/07/2024. Correlation is made with chest CT dated 04/17/2021. The cardiomediastinal silhouette is unremarkable. Chronic inte rstitial thickening is similar to previous. There is mild elevation of the right hemidiaphragm. The l ungs and pleural spaces are clear. No pneumothorax is seen. The skeletal structures are osteopenic. T he bony thorax is grossly intact. IMPRESSION: No active disease in the chest. ACT 112: Negative or not required by law. Electronically signed by: Alfonso Reid M.D. 04/08/2024 4:03 PM
[2024-04-08 16:12] LABS: Appearance Urine Clear (Clear); Bacteria Urine Automated None Seen (None Seen); Bilirubin Urine Negative (Negative); Blood Urine Negative (Negative); Cast Urine Automated 0-2 /lpf (0-2); Color Urine Yellow; Epithelial Cell Urine Auto 0-2 /hpf (0-2); Glucose Urine UA Negative (Negative); Ketones Urine Negative (Negative); Leukocyte Esterase Urine 2+ (Negative); Nitrite Urine Negative (Negative); Protein Urine Negative (Negative); RBC Urine Automated 0-2 /hpf (0-2); Specific Gravity Urine 1.014 (1.000-1.030); Urobilinogen Urine Negative (Negative)
[2024-04-08 16:22] LABS: Albumin Globulin Ratio 1.5 (0.9-2); Albumin Level 3.9 gm/dl (3.4-5.0); BUN Creatinine Ratio 14.1 (10-20); Bilirubin,Total 0.3 mg/dl (0.2-1.0); Calcium 9.3 mg/dl (8.6-10.3); Creatinine Clr Calc Pharmacy 82.2 ml/min; Est GFR (African American) 103.6 ml/min; Est GFR (Non-African American) 89.4 ml/min; Globulin 2.6 gm/dl (2.5-4.0); Potassium 3.6 mmol/L (3.5-5.1); Total Protein 6.5 gm/dl (6.0-8.3)
[2024-04-08 16:28] LABS: Troponin I High Sensitivity 2.7 pg/ml (0-14)
[2024-04-08 16:31] LABS: Partial Thromboplastin Ratio 0.9; Partial Thromboplastin Time 24 Seconds (21-31); Prothrombin Time 10.4 Seconds (9.0-12.0)
--- NOTE | 2024-04-08 19:21 | Ultrasound Report ---
ULTRASOUND RIGHT UPPER QUADRANT ABDOMEN CLINICAL HISTORY: Right upper quadrant abdominal pain. COMPARISON STUDY: Abdominal CT dated 04/17/2021 TECHNIQUE: Real-time, grayscale, and color flow sonography of the right upper quadrant of the abdomen was performed. Images are reviewed in the transverse and longitudinal planes. FINDINGS: Liver: The liver is top normal in size and demonstrates heterogeneously increased echotexture indicat ing steatosis. There is no intrahepatic biliary ductal dilatation. The main portal vein is patent. Gallbladder: There are gallstones and biliary sludge. There is no gallbladder wall thickening or ingrid cholecystic fluid. A sonographic Cesar's sign is reportedly absent. The common bile duct measures up to 0.4 cm in diameter. Pancreas: Visualized portions of the pancreatic head and body are normal in appearance. The majority of the pancreas is obscured by overlying bowel gas. The splenic vein is patent. Right kidney: Survey images of the right kidney demonstrate normal size and echotexture. There is no hydronephrosis. Ascites: None. IMPRESSION: 1. Gallstones and biliary sludge with no sonographic evidence of acute cholecystitis. 2. Hepatic steatosis. ACT 112: Negative or not required by law. Electronically signed by: Alfonso Reid M.D. 04/08/2024 7:20 PM
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
[2024-04-08] MEDS ORDERED: GLUCAGON FOR INJ 1 MG VIAL SQ PRN (22:11)
[2024-04-08] MEDS ORDERED: CARBOHYDRATES FOR HYPOGLYCEMIA PO PRN (22:11)
[2024-04-08] MEDS ORDERED: hydrALAZINE HCL 20 MG/ML VIAL IV PRN (22:11)
[2024-04-08] MEDS ORDERED: ALBUT/IPRATROP 3MG/0.5MG NEB 3 ML VIAL INH PRN (22:11)
[2024-04-08] MEDS ORDERED: ONDANSETRON INJ 2 MG/ML 2 ML VIAL IV PRN (22:11)
[2024-04-08] MEDS ORDERED: ALBUTEROL HFA 8 GM INHALER INH PRN (22:11)
[2024-04-08] MEDS ORDERED: valACYclovir HCL 500 MG TABLET PO PRN (22:11)
[2024-04-08] MEDS ORDERED: GLUCOSE 40% GEL 15 GM TUBE PO PRN (22:11)
[2024-04-08] MEDS ORDERED: DEXTROSE 50% 50 ML SYRINGE IV PRN (22:11)
[2024-04-08] MEDS ORDERED: GLUCOSE 10 TAB/TUBE PO PRN (22:11)
[2024-04-08] MEDS: MoRPHine SULFATE 4 MG/ML 1 ML CARP\\VIAL IV PRN (23:02)
[2024-04-08] MEDS: LACTATED RINGER'S 1,000 ML IV SCH (23:05)
[2024-04-08] MEDS: ERTAPENEM SODIUM 1,000 MG in SYRINGE 0 ML IV SCH (23:07)
[2024-04-08] MEDS: busPIRone 5 MG TAB PO SCH (23:10)
[2024-04-08] MEDS: DULoxetine HCL 60 MG CAP PO SCH (23:10)
[2024-04-08] MEDS: ATORVASTATIN 40 MG TAB PO SCH (23:10)
[2024-04-08] MEDS: METOCLOPRAMIDE HCL 5 MG TABLET PO SCH (23:11)
[2024-04-08] MEDS: FLUTICASONE PROPIONATE NA SPR 16 GM BTL SCH (23:11)
[2024-04-08] MEDS: traZODone HCL 100 MG TAB PO SCH (23:11)
[2024-04-08] MEDS: PROMETHAZINE HCL 12.5 MG in SODIUM CHLORIDE 0.9% 50 ML IV PRN (23:39)
[2024-04-08] MEDS: INSULIN ASPART PER UNIT CHARGE SC SCH (23:54)
[2024-04-09] MEDS: D5W AND 1/2NSS 1,000 ML IV SCH (00:35)
[2024-04-09] MEDS: PANTOprazole 40 MG TAB PO SCH (06:16)
[2024-04-09 06:42] LABS: Basophils # (auto) 0.05 K/uL (0.00-0.20); Basophils % (auto) 0.6 %; Eosinophils # (auto) 0.35 K/uL (0.00-0.50); Eosinophils % (auto) 4.3 %; Hematocrit (blood only) 32.6 % (37.0-47.0); Hemoglobin 10.8 g/dl (12.0-16.0); Immature Granulocytes # (auto) 0.01 K/uL (0.01-0.20); Immature Granulocytes % (auto) 0.1 %; Lymphocytes % (auto) 49.4 %; Mean Corpuscular Hemoglobin 28.1 pg (25.0-34.0); Mean Corpuscular Hgb Conc 33.1 g/dL (32.0-36.0); Mean Corpuscular Volume 84.9 fL (80.0-100.0); Mean Platelet Volume 9.6 fL (9.4-12.4); Monocytes # (auto) 0.64 K/uL (0.11-0.59); Monocytes % (auto) 7.9 %; Neutrophils # (auto) 3.05 K/uL (1.40-6.50); Neutrophils % (auto) 37.7 %; Platelet Count 315 K/uL (130-400); RDW Coefficient of Variation 13.6 % (11.5-14.5); RDW Standard Deviation 42.2 fL (36.4-46.3); Red Blood Count 3.84 M/uL (4.20-5.40)
[2024-04-09 06:56] LABS: Albumin Level 3.4 gm/dl (3.4-5.0); BUN Creatinine Ratio 13.7 (10-20); Bilirubin Direct 0.1 mg/dl (0-0.2); Bilirubin,Total 0.4 mg/dl (0.2-1.0); Calcium 8.6 mg/dl (8.6-10.3); Creatinine Clr Calc Pharmacy 78.9 ml/min; Est GFR (African American) 100.2 ml/min; Est GFR (Non-African American) 86.4 ml/min; Magnesium 1.6 mg/dl (1.7-2.4); Potassium 3.7 mmol/L (3.5-5.1); Total Protein 5.6 gm/dl (6.0-8.3)
[2024-04-09] MEDS ORDERED: MoRPHine SULFATE 4 MG/ML 1 ML CARP\\VIAL IV PRN (07:53)
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
[2024-04-09] MEDS: FAMOTIDINE 20 MG TAB PO SCH (09:24)
[2024-04-09] MEDS: CETIRIZINE HCL 10 MG TABLET PO SCH (09:24)
[2024-04-09] MEDS: MONTELUKAST SODIUM 10 MG TABLET PO SCH (09:25)
[2024-04-09] MEDS: OXYBUTYNIN CHLORIDE XL 5 MG TABCR PO SCH (09:25)
[2024-04-09] MEDS: MULTIVITAMIN TAB PO SCH (09:25)
[2024-04-09] MEDS: VIBEGRON 75 MG TAB PO SCH (09:26)
[2024-04-09] MEDS: UMECLIDINIUM BROMIDE 62.5MCG/BLISTER 7 PUFFS/INHALER INH SCH (09:27)
--- NOTE | 2024-04-09 10:52 | Electrocardiogram Report ---
Test Reason : Blood Pressure : / mmHG Vent. Rate : 080 BPM Atrial Rate : 080 BPM P-R Int : 156 ms QRS Dur : 080 ms QT Int : 374 ms P-R-T Axes : 040 012 009 degrees QTc Int : 431 ms Normal sinus rhythm Nonspecific ST and T wave abnormality Abnormal ECG When compared with ECG of 06-AUG-2022 15:15, No significant change was found Confirmed by Harjeet Jose ([id number] on 04/09/2024 10:51:39 AM Referred By: Confirmed By:Lionel Jose
[2024-04-09] MEDS ORDERED: NON-FORMULARY MEDICATION (Potassium Gluconate 595 mg (99 mg) Tablet) PO SCH (11:30)
[2024-04-09] MEDS: LACTATED RINGER'S 1,000 ML IV SCH (11:42)
[2024-04-09] MEDS ORDERED: PROPOFOL IV EMULSION 10 MG/ML 20 ML VIAL IV ONE ×2 (11:43→11:44)
[2024-04-09] MEDS ORDERED: GLYCOPYRROLATE 0.2 MG/ML VIAL ONE (11:44)
[2024-04-09] MEDS ORDERED: ONDANSETRON INJ 2 MG/ML 2 ML VIAL ONE (11:44)
[2024-04-09] MEDS ORDERED: NEOSTIGMINE METHYLSULFATE 1 MG/ML 10ML VIAL ONE (11:44)
[2024-04-09] MEDS ORDERED: LIDOCAINE 2% 2 ML VIAL/AMP(20MG/ML) INFIL ONE (11:44)
[2024-04-09] MEDS ORDERED: DEXAMETHASONE SOD INJ 4 MG/ML VIAL ONE (11:44)
[2024-04-09] MEDS ORDERED: fentaNYL citrate PF 100 MCG/2 ML VIAL ONE (11:44)
[2024-04-09] MEDS ORDERED: MIDAZOLAM HCL 1 MG/ML 2ML VIAL ONE (11:44)
[2024-04-09] MEDS ORDERED: ROCURONIUM BROMIDE 10 MG/ML 5 ML VIAL IV ONE (11:44)
[2024-04-09] MEDS ORDERED: fentaNYL citrate PF 100 MCG/2 ML VIAL IV PRN (12:02)
[2024-04-09] MEDS ORDERED: ePHEDrine sulfate 50 MG/ML AMP IV PRN (12:02)
[2024-04-09] MEDS ORDERED: ATROPINE SULFATE 0.1 MG/ML 10ML SYR IV PRN (12:02)
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
[2024-04-09] MEDS ORDERED: KETOROLAC 30 MG/ML VIAL ONE (12:19)
[2024-04-09] MEDS ORDERED: SUGAMMADEX SODIUM 200 MG/2 ML VIAL IV ONE (12:20)
[2024-04-09] MEDS: BUPIVACAINE/EPINEPHRINE 0.25% 1:200,000 30 ML VIAL ONE (12:46)
--- NOTE | 2024-04-09 12:49 | Post Operative Brief Note ---
Immediate Post Op Note Date of Surgery April 09, 2024 Pre & Post Diagnosis Operation Date: 04/09/24 08:05 Pre-Op Diagnosis: Biliary Colic Post-Op Diagnosis: Biliary Colic I identified the patient and participated in the time-out.: Yes Procedure Operation Date: 04/09/24 08:05 Actual Procedures p Laparoscopic Cholecystectomy(Not Applicable) - Peng Powell MD Surgeon Peng Powell MD Dumper [employer] CHICA Mckay assisted with tissue retraction, camera op, closure Estimated Blood Loss 5 Findings Consistent with Post-Op Diagnosis
--- NOTE | 2024-04-09 12:51 | Operative Report ---
Post Operative Report Pre & Post Diagnosis Operation Date: 04/09/24 08:05 Pre-Op Diagnosis: Biliary Colic Post-Op Diagnosis: Biliary Colic I identified the patient and participated in the time-out.: Yes Procedure Operation Date: 04/09/24 08:05 Actual Procedures p Laparoscopic Cholecystectomy(Not Applicable) - Peng Powell MD Surgeon Peng Powell MD Director Biostatistics CHICA Mckay assisted with tissue retraction, camera op, closure Estimated Blood Loss 5 Findings Consistent with Post-Op Diagnosis Specimens gallbladder Drains none Anesthesia Type General Complications none Description of Procedure the patient was taken to the operating room, and placed supine on the operating table. A timeout was performed, perioperative antibiotics were administered, SCD boots were placed. After adequate anesthesia and analgesia was obtained, the abdomen was prepped and draped in the normal sterile fashion. Local anesthetic was injected into and around the proposed incision sites. An incision was made with a 15 blade scalpel in the supraumbilical region and carried down to the level of the fascia. The fascia was grasped with a trach hook, and a varies needle was used to enter the abdominal cavity. The abdomen was insufflated to a pressure of 15 mmHg, and a 11 mm trocar was placed in this location. A 10 mm, 30 degree laparoscope was placed into the abdominal cavity, and the abdomen was surveyed. Two 5 mm trochars were placed along the right costal margin, and one 5 mm trocar was placed in the subxiphoid region under direct visualization. The gallbladder was grasped and retracted cephalad and laterally, exposing the triangle of [place]. Dissection began in the triangle with a combination of blunt dissection with the [place] dissector, and judicious use of the hook cautery. The cystic duct and cystic artery were dissected free circumferentially, and a critical view of safety was obtained. The cystic duct and cystic artery were clipped and transected, and the gallbladder was removed from the gallbladder fossa with the hook cautery. The camera was switched to a 5 mm, the gallbladder was placed in an Endo Catch bag, and removed via the supraumbilical port site. The camera was switched back to the 10 mm camera, and the abdomen was surveyed again. Hemostasis was checked and attended, and was excellent. The abdomen was copiously irrigated and suctioned free. Again hemostasis was checked and was excellent. All trochars were removed under direct visualization. The abdomen was desufflated. The fascia in the 11 mm port site was closed with a 0 Vicryl suture. The skin was closed with a running 4-0 Monocryl subcuticular stitch. Dermabond was applied. The patient tolerated the procedure without complication, and was transferred in stable condition to the PACU. All instrument, needle, and sponge counts were correct at the end of the case. My assistant county attorney was necessary throughout the procedure for tissue retraction, possible camera operation, and closure of the wounds. I understand that section 1842(b)(7)(D) of the Social Security act generally prohibits Medicare physician fee schedule payment for the services of assistants at surgery in teaching hospitals when qualified residents are available to furnish such services. I certify that the services for which payment is claimed were medically necessary and that no qualified resident was available to perform the services. I further understand that these services are subject to postpayment review by the Medicare carrier. I attest to the content of the Intraoperative Record and any orders documented therein. Any exceptions are noted below.
--- NOTE | 2024-04-09 13:36 | Anesthesiology Progress Note ---
Date of Service April 09, 2024 Anesthesia Post Procedure Vital Signs Vital Signs: Temp Pulse Pulse Pulse Resp BP BP 04/09/24 13:25 87 21 142/77 H 04/09/24 13:15 91 H 20 143/83 H 04/09/24 13:05 96.8 F L 94 H 14 138/76 04/09/24 11:34 98.1 F 81 20 120/86 04/09/24 08:01 04/09/24 07:15 97.7 F 76 16 107/67 04/08/24 22:41 97.9 F 74 18 120/79 04/08/24 21:30 04/08/24 21:00 81 18 107/60 04/08/24 17:11 87 19 157/74 H 04/08/24 15:30 04/08/24 15:11 97.9 F 79 25 H 149/85 H Pulse Ox O2 Del Method O2 Flow Rate 04/09/24 13:25 95 Room Air 04/09/24 13:15 97 Oxymask 4 04/09/24 13:05 96 Oxymask 6 04/09/24 11:34 94 Room Air 04/09/24 08:01 Room Air 04/09/24 07:15 95 Room Air 04/08/24 22:41 96 Room Air 04/08/24 21:30 Room Air 04/08/24 21:00 98 Room Air 04/08/24 17:11 97 Room Air 04/08/24 15:30 Room Air 04/08/24 15:11 96 Room Air Pain Intensity Right Upper Abdomen: Pain Intensity: 8 Transfer of Care Handoff Completed per policy Notes Mental Status: alert / awake / arousable and participated in evaluation Patient Amnestic to Procedure: Yes Nausea / Vomiting: adequately controlled Pain: adequately controlled Airway Patency, RR, SpO2: stable & adequate BP & HR: stable & adequate Hydration State: stable & adequate Anesthetic Complications: no major complications apparent and Pt Satisfied with anesthetic care
[2024-04-09] MEDS ORDERED: diphenhydrAMINE Capsule 25 MG CAP PO PRN ×2 (13:42→15:26)
[2024-04-09] MEDS ORDERED: KETOROLAC TROMETHAMINE 15 MG/ML VIAL IV PRN (13:42)
[2024-04-09] MEDS ORDERED: Nursing to Pharmacy Communication SCH (13:45)
--- NOTE | 2024-04-09 15:20 | Hospitalist Progress Note ---
Date of Service April 09, 2024 Assessment & Plan (1) Biliary colic: Plan: 63-year-old female with past medical history significant for diabetic polyneuropathy, dyslipidemia, moderate persistent asthma, nonalcoholic steatohepatitis, GERD, irritable bowel syndrome with diarrhea, gastroparesis, chronic back pain, depression with anxiety, history of C. difficile, presents with Biliary colic. She was initially planned for laparoscopic cholecystectomy as outpatient. However, she had continuous pain and presented here. Biliary colic Status post laparoscopic cholecystectomy on April 09, 2024 Patient presented with right upper quadrant abdominal pain. She was initially planned for outpatient laparoscopic cholecystectomy. She underwent laparoscopic cholecystectomy on April 09, 2024 by general surgery. Gallbladder ultrasound shows gallstone and biliary sludge with no sonographic evidence of acute cholecystitis Pain control Diet as per surgery PT OT eval Possible UTI Urinalysis to for infection Empiric Invanz as patient allergy to ceftriaxone Urine cx- pin-point growth present Type 2 Diabetes will hold metformin sliding scale we will monitor Gastroparesis on Reglan Hyperlipidemia on statin Moderate persistent asthma continue home inhalers GERD on PPI and Pepcid Chronic back pain pain control Depression with anxiety on buspirone and duloxetine and trazodone hypertension holding lisinopril IV hydralazine as needed history of iron deficiency anemia on iron supplements DVT prophylaxis SCDs for now. disposition medical floor full code Please note the above document was generated using voice recognition software. It may contain grammatical, syntax or spelling errors. Any formal questions or concerns about the content, text or information contained within the body of this dictation should be directly addressed to the provider for clarification Admission and Anticipated Discharge Date Admission Date: April 08, 2024 Subjective Patient seen and examined after OR She is comfortably sitting up on the bed; not in distress She denies any abdominal pain or discomfort She denies fever, chills, chest pain or shortness of breath Review of Systems Review of Systems: All systems reviewed & are unremarkable except as noted in Subjective Physical Exam Physical Exam: Constitutional: Alert oriented x 3; not in distress. Respiratory: normal respiratory effort, lungs clear to auscultation, no wheeze, rales, rhonchi. Normal insp/exp effort, no accessory muscle use Cardiovascular: RRR, no murmur, no edema Vessels: no JVD or carotid bruit Chest: normal inspection of chest Abdomen: dressing in place Musculoskeletal: no cyanosis or clubbing, extremities motor strength 5/5 Skin: no rashes, warm and dry normal turgor Neurologic: PERRL, EOMI, accommodation nl, no face palsy, no dysarthria CN's II- XI intact bilaterally and moves all extremities Psychiatric: A+Ox3, euthymic affect Results & Data Results & Data Vital Signs (Past 12 Hours) Vital Signs Temp Pulse Pulse Resp BP Pulse Ox Pulse Ox 04/09/24 14:54 36.5 C 88 16 122/75 94 04/09/24 14:15 36.5 C 88 16 117/75 95 04/09/24 14:05 94 04/09/24 13:50 36.5 C 84 16 139/80 94 04/09/24 13:35 36.3 C L 86 18 143/78 H 95 04/09/24 13:25 87 21 142/77 H 95 04/09/24 13:15 91 H 20 143/83 H 97 04/09/24 13:05 36 C L 94 H 14 138/76 96 04/09/24 11:34 36.7 C 81 20 120/86 94 04/09/24 08:01 04/09/24 07:15 36.5 C 76 16 107/67 95 O2 Del Method O2 Del Method O2 Flow Rate 04/09/24 14:54 Room Air 04/09/24 14:15 Room Air 04/09/24 14:05 Room Air 04/09/24 13:50 Room Air 04/09/24 13:35 Room Air 04/09/24 13:25 Room Air 04/09/24 13:15 Oxymask 4 04/09/24 13:05 Oxymask 6 04/09/24 11:34 Room Air 04/09/24 08:01 Room Air 04/09/24 07:15 Room Air
[2024-04-09] MEDS: INSULIN ASPART PER UNIT CHARGE SC SCH (17:06)
[2024-04-09] MEDS: oxyCODONE/ACETAMINOPHEN 5mg/325mg TAB PO PRN (20:03)
[2024-04-10 06:05] LABS: Basophils # (auto) 0.03 K/uL (0.00-0.20); Basophils % (auto) 0.2 %; Eosinophils # (auto) 0.01 K/uL (0.00-0.50); Eosinophils % (auto) 0.1 %; Hematocrit (blood only) 30.4 % (37.0-47.0); Hemoglobin 10.3 g/dl (12.0-16.0); Immature Granulocytes # (auto) 0.06 K/uL (0.01-0.20); Immature Granulocytes % (auto) 0.4 %; Lymphocytes # (auto) 2.12 K/uL (1.20-3.40); Lymphocytes % (auto) 15.6 %; Mean Corpuscular Hemoglobin 28.1 pg (25.0-34.0); Mean Corpuscular Hgb Conc 33.9 g/dL (32.0-36.0); Mean Corpuscular Volume 83.1 fL (80.0-100.0); Mean Platelet Volume 9.4 fL (9.4-12.4); Monocytes # (auto) 0.89 K/uL (0.11-0.59); Monocytes % (auto) 6.6 %; Neutrophils # (auto) 10.44 K/uL (1.40-6.50); Neutrophils % (auto) 77.1 %; Platelet Count 316 K/uL (130-400); RDW Coefficient of Variation 13.3 % (11.5-14.5); RDW Standard Deviation 40.8 fL (36.4-46.3); Red Blood Count 3.66 M/uL (4.20-5.40); White Blood Count 13.55 K/ul (4.8-10.8)
[2024-04-10 06:23] LABS: BUN Creatinine Ratio 20.5 (10-20); Calcium 8.5 mg/dl (8.6-10.3); Creatinine Clr Calc Pharmacy 69.4 ml/min; Est GFR (African American) 85.8 ml/min; Potassium 3.8 mmol/L (3.5-5.1)
--- NOTE | 2024-04-10 10:01 | Surgery Progress Note ---
Date of Service April 10, 2024 Assessment & Plan (1) Biliary colic: (2) Gall stones: (3) RUQ abdominal pain: Plan: POD # 1 s/p lap bandar avss leukocytosis of 14k, likely postop moderate abdominal pain postop, somewhat controlled Plan: pain management, encouraged to stay on top of pain to help with ambulation and deep breaths alternate percocet and tylenol prn continue dm diet ambulate scds incentive spirometry abdominal binder stop IV abx Plan Admission and Anticipated Discharge Date Admission Date: April 08, 2024 Subjective feeling okay, still having some pain in RUQ and soreness at incision sites, 7/10 mild nausea no vomiting tolerating diet urinating without difficulty passing gas ambulating hallway feeling slightly short of breath due to pain at times, no chest pain Physical Exam Constitutional: WD/WN, vitals as above cooperative and comfortable; no acute distress and not ill appearing Respiratory: normal respiratory effort; no respiratory distress, no labored breathing and no retractions Cardiovascular: Rate/Rhythm: regular rate and regular rhythm Gastrointestinal (Abdomen): Inspection/Auscultation: + abdominal surgical incision (c/d/i with dermabond) Percussion/Palpation: + abdomen tender (RUQ) and abdomen soft; no guarding and abdomen not rigid Skin: no rashes, warm and dry no jaundice Psychiatric: Orientation: alert and oriented x 3 Results & Data Vital Signs (Past 12 Hours) Vital Signs Temp Pulse Resp BP Pulse Ox O2 Del Method 04/10/24 06:57 36.8 C 71 16 125/77 93 Room Air 04/10/24 04:00 36.8 C 70 14 124/72 96 Room Air 04/10/24 00:00 36.7 C 71 14 93/65 L 95 Room Air Laboratory Results 04/10/24 04/10/24 04/09/24 Range/Units 07:50 05:31 20:51 WBC 13.55 H (4.8-10.8) K/ul RBC 3.66 L (4.20-5.40) M/uL Hgb 10.3 L (12.0-16.0) g/dl Hct 30.4 L (37.0-47.0) % MCV 83.1 (80.0-100.0) fL MCH 28.1 (25.0-34.0) pg MCHC 33.9 (32.0-36.0) g/dL RDW Std Deviation 40.8 (36.4-46.3) fL RDW Coeff of Marissa 13.3 (11.5-14.5) % Plt Count 316 (130-400) K/uL MPV 9.4 (9.4-12.4) fL Immature Gran % (Auto) 0.4 % Neut % (Auto) 77.1 % Lymph % (Auto) 15.6 % [place] % (Auto) 6.6 % Eos % (Auto) 0.1 % Baso % (Auto) 0.2 % Neut # (Auto) 10.44 H (1.40-6.50) K/uL Lymph # (Auto) 2.12 (1.20-3.40) K/uL [place] # (Auto) 0.89 H (0.11-0.59) K/uL Eos # (Auto) 0.01 (0.00-0.50) K/uL Baso # (Auto) 0.03 (0.00-0.20) K/uL Immature Gran # (Auto) 0.06 (0.01-0.20) K/uL Sodium 135 L (136-145) mmol/L Potassium 3.8 (3.5-5.1) mmol/L Chloride 103 (98-107) mmol/L Carbon Dioxide 24 (21-32) mmol/L Anion Gap 8 (3-11) BUN 17 (6-23) mg/dl Creatinine 0.83 (0.6-1.2) mg/dl Est Cr Clr Drug Dosing 69.4 ml/min Est GFR ( Amer) 85.8 ml/min Est GFR (Non-Af Amer) 74.0 ml/min BUN/Creatinine Ratio 20.5 H (10-20) Glucose 146 H (70-99(Fasting)) mg/dl POC Glucose 145 H 148 H (70-99) mg/dl Calcium 8.5 L (8.6-10.3) mg/dl 04/09/24 04/09/24 04/09/24 Range/Units 16:53 14:01 11:44 WBC (4.8-10.8) K/ul RBC (4.20-5.40) M/uL Hgb (12.0-16.0) g/dl Hct (37.0-47.0) % MCV (80.0-100.0) fL MCH (25.0-34.0) pg MCHC (32.0-36.0) g/dL RDW Std Deviation (36.4-46.3) fL RDW Coeff of Marissa (11.5-14.5) % Plt Count (130-400) K/uL MPV (9.4-12.4) fL Immature Gran % (Auto) % Neut % (Auto) % Lymph % (Auto) % [place] % (Auto) % Eos % (Auto) % Baso % (Auto) % Neut # (Auto) (1.40-6.50) K/uL Lymph # (Auto) (1.20-3.40) K/uL [place] # (Auto) (0.11-0.59) K/uL Eos # (Auto) (0.00-0.50) K/uL Baso # (Auto) (0.00-0.20) K/uL Immature Gran # (Auto) (0.01-0.20) K/uL Sodium (136-145) mmol/L Potassium (3.5-5.1) mmol/L Chloride (98-107) mmol/L Carbon Dioxide (21-32) mmol/L Anion Gap (3-11) BUN (6-23) mg/dl Creatinine (0.6-1.2) mg/dl Est Cr Clr Drug Dosing ml/min Est GFR ( Amer) ml/min Est GFR (Non-Af Amer) ml/min BUN/Creatinine Ratio (10-20) Glucose (70-99(Fasting)) mg/dl POC Glucose 224 H 138 H 111 H (70-99) mg/dl Calcium (8.6-10.3) mg/dl
[2024-04-10] MEDS: oxyCODONE/ACETAMINOPHEN 5mg/325mg TAB PO PRN (10:10)
[2024-04-10] MEDS: POLYETHYLENE (MIRALAX) 17 GM PACK PO SCH (12:21)
[2024-04-10] MEDS: MAGNESIUM HYDROXIDE SUSP 30 ML UDC PO SCH (12:30)
--- NOTE | 2024-04-10 15:13 | Hospitalist Progress Note ---
Date of Service April 10, 2024 Assessment & Plan (1) Biliary colic: Plan: 63-year-old female with past medical history significant for diabetic polyneuropathy, dyslipidemia, moderate persistent asthma, nonalcoholic steatohepatitis, GERD, irritable bowel syndrome with diarrhea, gastroparesis, chronic back pain, depression with anxiety, history of C. difficile, presents with Biliary colic. She was initially planned for laparoscopic cholecystectomy as outpatient. However, she had continuous pain and presented here. Biliary colic Status post laparoscopic cholecystectomy on April 09, 2024 Patient presented with right upper quadrant abdominal pain. She was initially planned for outpatient laparoscopic cholecystectomy. She underwent laparoscopic cholecystectomy on April 09, 2024 by general surgery. Gallbladder ultrasound shows gallstone and biliary sludge with no sonographic evidence of acute cholecystitis Pain control Diet as per surgery PT OT eval Bowel regimen Possible UTI, ruled out Urinalysis suggestive of infection Empiric Invanz as patient allergy to ceftriaxone Urine cx- no growth DC antiboitics Type 2 Diabetes will hold metformin sliding scale we will monitor Gastroparesis on Reglan, continue Hyperlipidemia on statin, continue Moderate persistent asthma continue home inhalers GERD on PPI and Pepcid, continue Chronic back pain pain control Depression with anxiety on buspirone and duloxetine and trazodone hypertension on lisinopril, continue history of iron deficiency anemia on iron supplements DVT prophylaxis SCDs for now. disposition medical floor. Patient yet to have bowel movement after surgery. Continue bowel regimen. Monitor for ileus. Possible DC in a.m. full code Please note the above document was generated using voice recognition software. It may contain grammatical, syntax or spelling errors. Any formal questions or concerns about the content, text or information contained within the body of this dictation should be directly addressed to the provider for clarification Admission and Anticipated Discharge Date Admission Date: April 08, 2024 Subjective Patient seen and examined at bedside. She is comfortably lying in the bed; not in distress She has not had bowel movement yet She is passing gas Pain is well-controlled Review of Systems Review of Systems: All systems reviewed & are unremarkable except as noted in Subjective Physical Exam Physical Exam: Constitutional: Alert oriented x 3; not in distress. Respiratory: normal respiratory effort, lungs clear to auscultation, no wheeze, rales, rhonchi. Normal insp/exp effort, no accessory muscle use Cardiovascular: RRR, no murmur, no edema Vessels: no JVD or carotid bruit Chest: normal inspection of chest Abdomen: Laparoscopic incision; no soakage. clean and dry Musculoskeletal: no cyanosis or clubbing, extremities motor strength 5/5 Skin: no rashes, warm and dry normal turgor Neurologic: PERRL, EOMI, accommodation nl, no face palsy, no dysarthria CN's II- XI intact bilaterally and moves all extremities Psychiatric: A+Ox3, euthymic affect Results & Data Results & Data Vital Signs (Past 12 Hours) Vital Signs Temp Pulse Resp BP Pulse Ox O2 Del Method 04/10/24 14:41 36.7 C 64 16 130/76 95 Room Air 04/10/24 10:43 36.8 C 70 16 100/66 93 Room Air 04/10/24 06:57 36.8 C 71 16 125/77 93 Room Air 04/10/24 04:00 36.8 C 70 14 124/72 96 Room Air
[2024-04-10] MEDS: lisinopril 5 MG TAB PO SCH (17:04)
[2024-04-10] MEDS: ACETAMINOPHEN 325 MG TAB PO PRN (18:45)
[2024-04-11 06:54] LABS: Basophils # (auto) 0.05 K/uL (0.00-0.20); Basophils % (auto) 0.5 %; Eosinophils # (auto) 0.35 K/uL (0.00-0.50); Eosinophils % (auto) 3.2 %; Hematocrit (blood only) 34.8 % (37.0-47.0); Hemoglobin 11.6 g/dl (12.0-16.0); Immature Granulocytes # (auto) 0.04 K/uL (0.01-0.20); Immature Granulocytes % (auto) 0.4 %; Lymphocytes # (auto) 4.89 K/uL (1.20-3.40); Lymphocytes % (auto) 44.2 %; Mean Corpuscular Hemoglobin 28.1 pg (25.0-34.0); Mean Corpuscular Hgb Conc 33.3 g/dL (32.0-36.0); Mean Corpuscular Volume 84.3 fL (80.0-100.0); Mean Platelet Volume 9.3 fL (9.4-12.4); Monocytes # (auto) 0.84 K/uL (0.11-0.59); Monocytes % (auto) 7.6 %; Neutrophils # (auto) 4.89 K/uL (1.40-6.50); Neutrophils % (auto) 44.1 %; Platelet Count 329 K/uL (130-400); RDW Coefficient of Variation 13.7 % (11.5-14.5); RDW Standard Deviation 42.5 fL (36.4-46.3); Red Blood Count 4.13 M/uL (4.20-5.40); White Blood Count 11.06 K/ul (4.8-10.8)
[2024-04-11 07:13] LABS: BUN Creatinine Ratio 20.7 (10-20); Calcium 8.8 mg/dl (8.6-10.3); Creatinine Clr Calc Pharmacy 70.2 ml/min; Est GFR (Non-African American) 75.1 ml/min; Potassium 4.1 mmol/L (3.5-5.1)
[2024-04-11 07:30] VITALS: BP 114/76; PULSE 65; RESP 16; TEMP 97.5; O2SAT 94
--- NOTE | 2024-04-11 09:05 | Surgery Progress Note ---
Date of Service April 11, 2024 Assessment & Plan (1) Biliary colic: (2) Gall stones: (3) RUQ abdominal pain: Plan: POD # 2 s/p lap bandar avss leukocytosis of 11k, improved postop pain better controlled Plan: Okay from surgical standpoint for discharge discharge instructions reviewed as she has not had bowel movement for a few days would recommend bowel regimen on discharge: Daily stool softener while taking narcotic pain medication and Daily Miralax for 2 more days. rx percocet sent to pharmacy surgical f/u in 2 weeks Plan Admission and Anticipated Discharge Date Admission Date: April 08, 2024 Subjective feeling better pain better controlled today about 5 currently no n,v tolerating diet passing gas urinating without difficulty no chest pain or shortness of breath, able to take deeper breaths today with better pain control Physical Exam Constitutional: WD/WN, vitals as above cooperative and comfortable; no acute distress and not ill appearing Respiratory: normal respiratory effort; no respiratory distress, no labored breathing and no retractions Gastrointestinal (Abdomen): Inspection/Auscultation: abdomen normal to inspection and + abdominal surgical incision (c/d/i with dermabond); abdomen not distended Percussion/Palpation: + abdomen tender and abdomen soft; no guarding, abdomen not rigid and abdomen not firm ecchymosis of the umbilical incision Skin: no rashes, warm and dry no jaundice Psychiatric: Orientation: alert and oriented x 3 Results & Data Vital Signs (Past 12 Hours) Vital Signs Temp Pulse Resp BP Pulse Ox O2 Del Method 04/11/24 07:29 36.4 C L 65 16 114/76 94 Room Air Laboratory Results 04/11/24 04/11/24 04/10/24 Range/Units 07:43 06:17 20:19 WBC 11.06 H (4.8-10.8) K/ul RBC 4.13 L (4.20-5.40) M/uL Hgb 11.6 L (12.0-16.0) g/dl Hct 34.8 L (37.0-47.0) % MCV 84.3 (80.0-100.0) fL MCH 28.1 (25.0-34.0) pg MCHC 33.3 (32.0-36.0) g/dL RDW Std Deviation 42.5 (36.4-46.3) fL RDW Coeff of Marissa 13.7 (11.5-14.5) % Plt Count 329 (130-400) K/uL MPV 9.3 L (9.4-12.4) fL Immature Gran % (Auto) 0.4 % Neut % (Auto) 44.1 % Lymph % (Auto) 44.2 % [place] % (Auto) 7.6 % Eos % (Auto) 3.2 % Baso % (Auto) 0.5 % Neut # (Auto) 4.89 (1.40-6.50) K/uL Lymph # (Auto) 4.89 H (1.20-3.40) K/uL [place] # (Auto) 0.84 H (0.11-0.59) K/uL Eos # (Auto) 0.35 (0.00-0.50) K/uL Baso # (Auto) 0.05 (0.00-0.20) K/uL Immature Gran # (Auto) 0.04 (0.01-0.20) K/uL Sodium 140 (136-145) mmol/L Potassium 4.1 (3.5-5.1) mmol/L Chloride 106 (98-107) mmol/L Carbon Dioxide 30 (21-32) mmol/L Anion Gap 4 (3-11) BUN 17 (6-23) mg/dl Creatinine 0.82 (0.6-1.2) mg/dl Est Cr Clr Drug Dosing 70.2 ml/min Est GFR ( Amer) 87.0 ml/min Est GFR (Non-Af Amer) 75.1 ml/min BUN/Creatinine Ratio 20.7 H (10-20) Glucose 105 H (70-99(Fasting)) mg/dl POC Glucose 100 H 99 (70-99) mg/dl Calcium 8.8 (8.6-10.3) mg/dl 04/10/24 04/10/24 Range/Units 16:33 11:39 WBC (4.8-10.8) K/ul RBC (4.20-5.40) M/uL Hgb (12.0-16.0) g/dl Hct (37.0-47.0) % MCV (80.0-100.0) fL MCH (25.0-34.0) pg MCHC (32.0-36.0) g/dL RDW Std Deviation (36.4-46.3) fL RDW Coeff of Marissa (11.5-14.5) % Plt Count (130-400) K/uL MPV (9.4-12.4) fL Immature Gran % (Auto) % Neut % (Auto) % Lymph % (Auto) % [place] % (Auto) % Eos % (Auto) % Baso % (Auto) % Neut # (Auto) (1.40-6.50) K/uL Lymph # (Auto) (1.20-3.40) K/uL [place] # (Auto) (0.11-0.59) K/uL Eos # (Auto) (0.00-0.50) K/uL Baso # (Auto) (0.00-0.20) K/uL Immature Gran # (Auto) (0.01-0.20) K/uL Sodium (136-145) mmol/L Potassium (3.5-5.1) mmol/L Chloride (98-107) mmol/L Carbon Dioxide (21-32) mmol/L Anion Gap (3-11) BUN (6-23) mg/dl Creatinine (0.6-1.2) mg/dl Est Cr Clr Drug Dosing ml/min Est GFR ( Amer) ml/min Est GFR (Non-Af Amer) ml/min BUN/Creatinine Ratio (10-20) Glucose (70-99(Fasting)) mg/dl POC Glucose 99 112 H (70-99) mg/dl Calcium (8.6-10.3) mg/dl
--- NOTE | 2024-04-11 12:48 | Discharge Summary ---
Discharge Summary Date of Service April 11, 2024 Principal Dx & Hospital Course #1 = Principal Diagnosis (1) Biliary colic: 63-year-old female with past medical history significant for diabetic polyneuropathy, dyslipidemia, moderate persistent asthma, nonalcoholic steatohepatitis, GERD, irritable bowel syndrome with diarrhea, gastroparesis, chronic back pain, depression with anxiety, history of C. difficile, presents with Biliary colic. She was initially planned for laparoscopic cholecystectomy as outpatient. However, she had continuous pain and presented here. Plan Patient was admitted to the hospital. She was seen by surgery due to the fact that she had known cholelithiasis but had failed plans for outpatient cholecystectomy. Was evaluated by surgery and underwent laparoscopic cholecystectomy on 04/09/2024. Her postoperative course was uneventful. Her diet was advanced. On the day of discharge she was tolerating her diet. She is passing flatus. Her pain is significantly improved. She is up and ambulatory. She will be discharged to follow-up with her outpatient providers and surgery as coordinated. Notes For Next Care Provider Medication Changes From Visit Percocdavian added for pain control Admission HPI Per Admitting Provider 63-year-old female with past medical history significant for diabetic polyneuropathy, dyslipidemia, moderate persistent asthma, nonalcoholic steatohepatitis, GERD, irritable bowel syndrome with diarrhea, gastroparesis, chronic back pain, depression with anxiety, history of C. difficile, presents with biliary colic. On March 22, 2024 [facility] with right-sided chest pain radiating to right scapular area. Patient's States had CAT scan and ultrasound and was told had gallstones and was transferred to [place] where she had HIDA scan. At [place] ,surgery saw the patient and advised for elective surgery. Patient had Outpatient follow-up with surgery and there is a plan for surgery on April 16. But since last night she is having severe pain in the right lower chest and upper quadrant abdominal pain very severe in nature Associated with nausea. Since last night 11 PM she did not eat anything. Denies any fevers. Has chills. She has chronic diarrhea with her IBS. Denies any blood in the stools. Denies any hematuria. Denies any burning micturition. The pain is radiating into her chest. She says she gets short of breath because of her asthma. Has some dry cough. No runny nose. No sore throat. Has headache. Vision is okay. Currently hemodynamics are okay. Discharge Exam Constitutional: Alert HEENT: Mucous membranes moist. Lungs: Clear to auscultation, decreased, no wheezes rales or rhonchi CV: S1-S2, regular Abdomen: Soft, incisions are dry and appropriately healing, minimal tenderness Extremities: No significant edema Neuro: No focal deficits Psych: Cooperative, normal mood Updated Medication List Medication Instructions Recorded Confirmed Type acetaminophen 500 mg tablet 1,000 mg PO Q6H PRN Pain 07/29/18 04/08/24 History (Tylenol Extra Strength) atorvastatin 80 mg tablet 80 mg PO HS 07/29/18 04/08/24 History buspirone 5 mg tablet 5 mg PO BID 07/29/18 04/08/24 History duloxetine 60 mg capsule,delayed 60 mg PO HS 07/29/18 04/08/24 History release mirabegron 25 mg tablet,extended 50 mg PO QAM 07/29/18 04/08/24 History release 24 hr montelukast 10 mg tablet 10 mg PO QAM 07/29/18 04/08/24 History multivitamin 1 tab PO QAM 07/29/18 04/08/24 History metoclopramide HCl 5 mg tablet 5 mg PO BID 11/08/18 04/08/24 History cetirizine 10 mg tablet 10 mg PO QAM 08/19/19 04/08/24 History albuterol sulfate 90 mcg/actuation 2 puff inhalation Q4H PRN 08/20/19 04/08/24 History aerosol inhaler (Ventolin HFA) Shortness Of Breath Or Wheezing fluticasone propionate 50 2 spray intranasal BID 08/20/19 04/08/24 History mcg/actuation nasal spray,suspension (Flonase Allergy Relief) ipratropium 0.5 mg-albuterol 3 mg 3 ml inhalation BID PRN Shortness 08/20/19 04/08/24 History (2.5 mg base)/3 mL nebulization Of Breath Or Wheezing soln metformin 500 mg tablet 1,000 mg PO QAM 02/10/20 04/08/24 History valacyclovir 500 mg tablet 500 mg PO TID PRN HERPES OUTBREAK 07/17/20 04/08/24 Rx #21 tabs calcium carbonate (Calcium 600) 600 mg PO QDL 03/23/22 04/08/24 History cholecalciferol (vitamin D3) 50 50 mcg PO QDL 03/23/22 04/08/24 History mcg (2,000 unit) capsule (Vitamin D3) cinnamon bark 500 mg capsule 1,000 mg PO QPM 03/23/22 04/08/24 History (Cinnamon) colestipol 1 gram tablet 1 g PO QAM 03/23/22 04/08/24 History cyanocobalamin (vitamin B-12) 500 1,000 mcg PO QDL 03/23/22 04/08/24 History mcg tablet ferrous sulfate 325 mg (65 mg 325 mg PO QDL 03/23/22 04/08/24 History iron) tablet esomeprazole magnesium 40 mg 40 mg PO DAILYBB 06/10/23 04/08/24 History capsule,delayed release (Nexium) famotidine 20 mg tablet 20 mg PO QAM 06/10/23 04/08/24 History lisinopril 5 mg tablet 5 mg PO QAM 06/10/23 04/08/24 History oxybutynin chloride 10 mg 10 mg PO QAM 06/10/23 04/08/24 History tablet,extended release 24 hr potassium gluconate 595 mg (99 mg) 595 mg PO QDL 06/10/23 04/08/24 History tablet tiotropium bromide 2.5 2 inh inhalation QAM 06/10/23 04/08/24 History mcg/actuation mist for inhalation (Spiriva Respimat) trazodone 100 mg tablet 100 mg PO HS 06/10/23 04/08/24 History wheat dextrin 3 gram/4 gram oral 4 g PO DAILY 06/10/23 04/08/24 History powder (Benefiber Sugar Free (dextrin)) oxycodone-acetaminophen 5 mg-325 1 tab PO Q6H PRN pain #10 tabs 04/11/24 Rx mg tablet (Percocet) Hospital Stay Data Consultations 04/08/24 19:39 ED Decision to Admit Stat 04/09/24 08:00 Consult General Surgery Routine Procedures Performed Operation Date: 04/09/24 08:05 Actual Procedures p Laparoscopic Cholecystectomy(Not Applicable) - Peng Powell MD Diagnostic Imagining Performed 04/08/24 15:41 gallbladder Stat Pending Results Patient Have Any Pending Studies at Discharge: No Discharge Instructions Given to Patient (Per Discharging Provider) Follow-up with surgery as coordinated through their office Total Time Total Time Spent Total Time Spent (In Minutes): 25
== END 2024-04-11 13:52 | disposition home or self-care (01) ==
LOC: ED 15:07 → SUATTDRO 20:29 → INTOOBSV 20:29 → 3N 20:29
DX: N18.9 Chronic kidney disease, unspecified; K31.84 Gastroparesis; Z91.040 Latex allergy status; Z79.51 Long term (current) use of inhaled steroids; E11.42 Type 2 diabetes mellitus with diabetic polyneuropathy; K58.0 Irritable bowel syndrome with diarrhea; G89.29 Other chronic pain; M54.9 Dorsalgia, unspecified; K80.44 Calculus of bile duct with chronic cholecystitis without obstruction; Z86.19 Personal history of other infectious and parasitic diseases; Z79.84 Long term (current) use of oral hypoglycemic drugs; E11.22 Type 2 diabetes mellitus with diabetic chronic kidney disease; Z88.1 Allergy status to other antibiotic agents; J45.40 Moderate persistent asthma, uncomplicated; Z79.899 Other long term (current) drug therapy; E78.5 Hyperlipidemia, unspecified; K75.81 Nonalcoholic steatohepatitis (NASH); K21.9 Gastro-esophageal reflux disease without esophagitis; Z88.2 Allergy status to sulfonamides; Z87.891 Personal history of nicotine dependence